=== PATIENT | male | born 1960 | race African-American/Black ===

== ENCOUNTER 2016-04-10 11:20 | Inpatient (IN) | payer OTHER ==
[~2016-04-10] VITALS: Ht 185.4 cm; Wt 127.8 kg
[~2016-04-10 11:20] MED LIST: AMLO-147 PO; BACTDS PO; BENA40TA41 PO; CEPH-443 PO; GLYB5TAB3 PO; INSU200I SQ; LANT3I SC; METO-407 PO
[2016-04-10 13:29] LABS: HEMATOCRIT 20.2 % (42.0-52.0); MEAN CORPUSCULAR HEMOGLOBIN 31.4 pg (29.0-33.0); MEAN CORPUSCULAR HGB CONC 32.3 g/dl (32.0-37.0); MEAN CORPUSCULAR VOLUME 97.3 fl (82.0-101.0); MEAN PLATELET VOLUME 8.5 fl (7.4-10.4); PLATELET COUNT 40 10^3/UL (140-440); RED BLOOD COUNT 2.08 10^6/ul (4.70-6.10); RED CELL DISTRIBUTION WIDTH 22.9 % (11.5-14.5); UNCORRECTED WBC 6.7 10^3/ul (4.8-10.8); WHITE BLOOD COUNT 6.7 10^3/ul (4.8-10.8)
[2016-04-10 13:38] LABS: CHLORIDE 103 mmol/L (97-110); INR 1.2; POTASSIUM 4.9 mmol/L (3.5-5.1); PROTIME 15.3 Sec (12.2-14.2); PT RATIO 1.2; SODIUM 140 mmol/L (135-144)
[2016-04-10 13:39] LABS: PARTIAL THROMBOPLASTIN TIME 31.9 Sec (25.0-35.0)
[2016-04-10 13:41] LABS: ANION GAP 15 (8-16); BLOOD UREA NITROGEN 15 mg/dl (7-20); CARBON DIOXIDE 27 mmol/L (21-31); CREATININE 0.82 mg/dl (0.61-1.24)
[2016-04-10 13:42] LABS: CALCIUM 8.7 mg/dl (8.4-10.2); CONDITION 1; GLUCOSE 89 mg/dl (70-220); HEMOGLOBIN 6.5 g/dl (14.0-18.0)
--- NOTE | 2016-04-10 13:43 | EN ---
Date/Time of Note Date/Time of Note DATE: 04/10/16 TIME: 13:36 ER Progress Note Patient is a 46 year old diabetic, hypertensive, blind, hx of cardiac disease male here for stabbing chest pain, abdominal pain, rash, wound on his left foot. Patient states that he is currently on ciprofloxacin and keflex for his foot infection, but developed a total body rash 2 days after using his medications. He denies itchiness but states his rash is painful. He also states he has stabbing left sided chest pain that radiates to the right. Denies radiation down his arms. Denies SOB or difficulty breathing. Denies nausea, vomiting, diarrhea, sweating or jaw pain. Denies weakness or dizziness. He also states he has not had a bowel movement in 2 weeks. MDM Before doing a physical examination on the patient, I spoke with Dr. Millie yepez who stated that patient should be sent to ED 1. I then spoke with Dr. Kellogg who accepted the patient. Dr. Kellogg told me to order chest x-ray, EKG and blood work. I put in orders. Patient is stable in the room I will be passing on the patient to Dr. Kellogg. ATTILA MERRITT PA-C Apr 10, 2016 13:43
[2016-04-10 13:51] LABS: B-TYPE NATRIURETIC PEPTIDE 1620 PG/ML (0-125)
[2016-04-10 13:55] LABS: TROPONIN-I < 0.012 ng/ml (0.00-0.12)
--- NOTE | 2016-04-10 13:58 | RADRPT ---
PROCEDURE: XR Chest. CLINICAL INDICATION: Chest pain TECHNIQUE: Chest AP portable. COMPARISON: No comparison available. FINDINGS: The mediastinal structures are unremarkable. There is mild cardiomegaly. The pulmonary vascularity is normal. The lung rosas are unremarkable. No consolidation is identified. The pleural spaces are unremarkable. The axial skeleton is unremarkable. IMPRESSION: Mild cardiomegaly No active intrathoracic disease. RPTAT: HGDB .Rodney Garcia MD, MD Date Time Electronically viewed and signed by .Rodney Garcia MD, on 04/10/2016 13:58 .B/
[2016-04-10] MEDS ORDERED: morphine 4 MG/ML VIAL IV STA (14:19)
[2016-04-10] MEDS ORDERED: ONDANSETRON 4 MG INJ IV STA (14:19)
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
[2016-04-10 15:42] LABS: EOSINOPHILS # 0.1 10^3/ul (0.0-0.5); LYMPHOCYTES # 5.2 10^3/ul (0.8-2.9); MONOCYTE # 0.4 10^3/ul (0.3-0.9); NEUTROPHIL # 0.7 10^3/ul (1.6-7.5)
[2016-04-10 15:43] LABS: PLATELET ESTIMATE PLT APPEAR DECREASED
[2016-04-10] MEDS ORDERED: VANCOMYCIN 1 GM (PMX) 250 ML IVPB SCH (16:00)
[2016-04-10] MEDS ORDERED: PIPER-TAZO 3.375 GM IV (PMX) 100 ML IVPB ONE (16:00)
[2016-04-10] MEDS ORDERED: CEPH500C PO (16:36)
[2016-04-10] MEDS ORDERED: CIPR500T4 PO (16:37)
[2016-04-10 17:36] LABS: ALBUMIN 3.7 g/dl (3.3-4.9)
[2016-04-10 17:39] LABS: BILIRUBIN,INDIRECT 0.3 mg/dl (0-1.1); BILIRUBIN,TOTAL 0.3 mg/dl (0.2-1.3); TOTAL PROTEIN 9.3 g/dl (6.1-8.1)
--- NOTE | 2016-04-10 18:08 | RADRPT ---
PROCEDURE: CT abdomen and pelvis without contrast. CLINICAL INDICATION: Abdominal pain. TECHNIQUE: CT scan of the abdomen and pelvis without contrast was performed on a multislice CT [facility] utilizing axial imaging from the lung bases through the pubis symphysis. The patient was scann ed without intravenous contrast. Sagittal and coronal reformatted images were made. The CTDIvol is 16.91 mGy and the DLP is 1163.84 mGycm. COMPARISON: None available other than chest x-ray dated 04/10/2016 FINDINGS: The lung bases are clear. Mild cardiomegaly is present with vascular calcifications of the coronary arteries. No pericardial or pleural effusions are present. Mild diffuse fatty infiltration of the l iver is present without focal lesions. Mild splenomegaly is present. The pancreas, gallbladder, and bilateral adrenal glands are normal. N o evidence for intrahepatic or extrahepatic biliary ductal dilatation is noted. The visualized bowel is nonobstructive. The stomach is decompressed with a small hiatal hernia noted . The bilateral kidneys are normal. No evidence for hydroureter nephrosis or nephroureterolithiasis i s present. The liver, gallbladder, pancreas, spleen, adrenal glands, and kidneys are all normal in a ppearance on this noncontrast examination. The visualized bowel, including the appendix, is normal i n appearance. No pelvic mass, lymphadenopathy, or free fluid is seen. The prostate gland is normal. No evidence f or ascites, pneumoperitoneum or pathologic lymphadenopathy is present. There is no evidence of free air. No aneurysmal dilatation of the aorta is evident. The surrounding osseous structures are remarkable for bilateral sacroiliac joint degenerative diseas e and degenerative changes of the spine. IMPRESSION: 1. No radiographic evidence for acute cardiopulmonary disease. 2. Mild cardiomegaly and coronary artery vascular calcifications. 3. Mild splenomegaly 3. No evidence for diverticulitis or appendicitis. 4. Small hiatal hernia RPTAT: HDC .Frida Valladares MD, MD Date Time Electronically viewed and signed by .Frida Valladares MD, on 04/10/2016 18:08 .C/
[2016-04-10] MEDS ORDERED: ACETAMINOPHEN 325 MG TAB PO ONE (18:30)
--- NOTE | 2016-04-10 18:39 | RADRPT ---
PROCEDURE: XR Right Foot. CLINICAL INDICATION: Pain. TECHNIQUE: AP, lateral and oblique views of the right foot was obtained. The images were reviewed on a PACS workstation. COMPARISON: None. FINDINGS: There are no fractures. There is mild hallux valgus deformity and mild degenerative changes of the first digit metatarsal phalangeal joint. Joint relationships are otherwise maintained. Bone minera lization is within normal limits. Soft tissues are unremarkable. IMPRESSION: No acute abnormality. Redemonstrated first digit metatarsal phalangeal joint hallus valgus deformity and degenerative changes. RPTAT: HMVK .Eyal Mcallister MD, Date Time Electronically viewed and signed by .Eyal Mcallister MD, MD on 04/10/2016 18:38 .K/
[2016-04-10] MEDS ORDERED: VANCOMYCIN IV PER PHARMACY XX SCH (19:00)
[2016-04-10] MEDS ORDERED: GLUCOSE GEL 15 GRAM TUBE PO PRN ×2 (19:00)
[2016-04-10] MEDS ORDERED: GLUCOSE GEL 15 GRAM TUBE BUCCAL PRN (19:00)
[2016-04-10] MEDS ORDERED: NITROGLYCERIN (SL) 0.4 MG TAB SL PRN (19:00)
[2016-04-10] MEDS ORDERED: DOCUSATE SODIUM 100 MG CAP PO PRN (19:00)
[2016-04-10] MEDS ORDERED: NACL 0.9% 3 ML SYG IV SCH (19:00)
[2016-04-10] MEDS ORDERED: VANCOMYCIN 1 GM in NS 250 ML IVPB SCH (19:00)
[2016-04-10] MEDS ORDERED: BISACODYL 10 MG SUPP PR PRN (19:00)
[2016-04-10] MEDS ORDERED: GLUCAGON 1 MG INJ IM PRN (19:00)
[2016-04-10] MEDS ORDERED: DEXTROSE 50% 50 ML SYRINGE IV PRN ×2 (19:00)
[2016-04-10 20:00] VITALS: TEMP 99.1
[2016-04-10 20:20] VITALS: BP 130/69; PULSE 96; RESP 18
[2016-04-10 20:36] VITALS: PULSE 101
[2016-04-10 20:39] LABS: INR 1.18; PROTIME 15.1 Sec (12.2-14.2); PT RATIO 1.2
[2016-04-10 20:47] LABS: CK-MB 0.42 ng/ml (0.0-2.4)
[2016-04-10 20:49] LABS: TROPONIN-I 0.022 ng/ml (0.00-0.12)
[2016-04-10 20:59] LABS: FIBRIN SPLIT PRODUCT >40 and <80 ug/ml (<10)
[2016-04-10] MEDS: INSULIN ASPART [NOVOLOG] 3 ML PEN SC SCH (21:00)
[2016-04-10] MEDS: INSULIN GLARGINE [LANtus] 3 ML PEN SC SCH (21:00)
[2016-04-10] MEDS ORDERED: METOPROLOL 50 MG TAB PO SCH (21:00)
[2016-04-10 21:09] LABS: THROMBIN TIME 16.6 SEC (13.8-19.1)
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
[2016-04-10 21:28] LABS: IRON 41 ug/dl (35-150)
[2016-04-10 21:34] LABS: PLATELET COUNT 36 10^3/UL (140-440)
[2016-04-10 21:44] LABS: FOLATE 7.1 ng/ml (2.8-20.0); TOTAL IRON BINDING CAPACITY 308 ug/dl (241-421)
[2016-04-10 22:07] VITALS: PULSE 129
[2016-04-10] MEDS: morphine 2 MG INJ IV PRN (23:37)
[2016-04-10] MEDS: PIPER-TAZO 3.375 GM IV (PMX) 100 ML IVPB SCH (23:41)
[2016-04-10] MEDS: SOD CHLORIDE 0.9% 1,000 ML IV SCH (23:42)
[2016-04-10 23:58] VITALS: BP 134/73; RESP 18
[2016-04-11] VITALS (11 sets, daily range): BP systolic 130–141; BP diastolic 76–82; PULSE 80–96; RESP 18–20; Ht 185.4 cm; Wt 127.8 kg
[2016-04-11] MEDS: HYDROCODONE/APAP (5/325) TAB PO PRN (02:59)
[2016-04-11] MEDS: SOD CHLORIDE 0.9% 1,000 ML IV SCH ×2 (04:34→14:54)
[2016-04-11] MEDS: PANTOPRAZOLE (EC) 40 MG TAB PO SCH (05:13)
[2016-04-11] MEDS: morphine 2 MG INJ IV PRN ×4 (05:14→23:01)
[2016-04-11] MEDS: PIPER-TAZO 3.375 GM IV (PMX) 100 ML IVPB SCH ×3 (05:14→22:00)
[2016-04-11 07:08] LABS: HEMATOCRIT 19.8 % (42.0-52.0); MEAN CORPUSCULAR HEMOGLOBIN 31.6 pg (29.0-33.0); MEAN CORPUSCULAR VOLUME 93.2 fl (82.0-101.0); RED BLOOD COUNT 2.12 10^6/ul (4.70-6.10); RED CELL DISTRIBUTION WIDTH 23.9 % (11.5-14.5); UNCORRECTED WBC 5.1 10^3/ul (4.8-10.8); WHITE BLOOD COUNT 5.1 10^3/ul (4.8-10.8)
[2016-04-11 07:13] LABS: CONDITION 1; LH ANALYZER COMMENTS 1; PLATELET COUNT 30 10^3/UL (140-440)
[2016-04-11 07:15] LABS: HEMOGLOBIN 6.7 g/dl (14.0-18.0)
[2016-04-11 07:24] LABS: ALBUMIN 3.3 g/dl (3.3-4.9)
[2016-04-11 07:25] LABS: POTASSIUM 4.6 mmol/L (3.5-5.1)
[2016-04-11 07:27] LABS: BILIRUBIN,INDIRECT 0.6 mg/dl (0-1.1); BILIRUBIN,TOTAL 0.6 mg/dl (0.2-1.3); CREATININE 0.85 mg/dl (0.61-1.24)
[2016-04-11 07:28] LABS: ALBUMIN/GLOBULIN RATIO 0.66; CALCIUM 8.1 mg/dl (8.4-10.2); TOTAL PROTEIN 8.3 g/dl (6.1-8.1)
[2016-04-11 07:29] LABS: MAGNESIUM 2.1 mg/dl (1.7-2.5)
[2016-04-11] MEDS ORDERED: METOPROLOL 50 MG TAB PO SCH (09:00)
[2016-04-11] MEDS: AMLODIPINE 5 MG TAB PO SCH (09:00)
[2016-04-11 09:16] LABS: LYMPHOCYTES # 4.5 10^3/ul (0.8-2.9); NEUTROPHIL # 0.6 10^3/ul (1.6-7.5)
[2016-04-11] MEDS: INSULIN ASPART [NOVOLOG] 3 ML PEN SC SCH ×7 (09:35→21:00)
[2016-04-11] MEDS: VANCOMYCIN 1.5 GM in SOD CHLORIDE 0.9% 250 ML IVPB SCH ×2 (10:39→20:38)
[2016-04-11] MEDS: METOPROLOL 100 MG TAB PO SCH ×2 (10:40→20:37)
--- NOTE | 2016-04-11 12:51 | PN ---
Date/Time of Note Date/Time of Note DATE: 04/11/16 TIME: 11:32 Assessment/Plan VTE Prophylaxis VTE Prophylaxis Intervention: SCD's Lines/Catheters IV [facility]from [facility] Peripheral IV Assessment/Plan Assessment/Plan 55-year-old male with: 1. Anemia, acute on chronic with an MCV in the 90s. He is also pancytopenic, primarily thrombocytopenic. HIV negative. Hematology consult will be ordered Transfuse 2 additional units if needed Continue current antibiotics. DIC panel done Patient may need a bone marrow biopsy. 2. Fever with likely acute infection of his right 1st and 2nd toe. ESR elevated The patient also had a rash, maculopapular. He does have a history of methicillin-resistant Staphylococcus aureus skin and soft-tissue infection years ago requiring extensive debridement of the left upper extremity. Continue Vancomycin and Zosyn. Blood cultures and wound cultures pending. Wound care and Dr Thomas, podiatry to see patient. 3. Diabetes mellitus. Likely A1c >13, will wait for send out. Continue current insulin regimen, seems like patient refused Lantus last night. Hold off the glyburide for now. On Tradjenta Diabetic education consult 4. Cardiomegaly, rule out congestive heart failure. Patient with episode of NSVT x 12 beats 2-D echocardiogram pending, CE negative and on Lopressor Continue telemetry monitoring. Electrolytes stable 5. Hypertension. Continue beta blockers and Norvasc. Will hold benazepril for now. 6. Constipation: Miralax and colace, dulcolax prn Prophylaxis. Proton pump inhibitors for GI prophylaxis and SCDs for DVT prophylaxis. DISPOSITION: Close monitoring on Tele, Hematology consult, Podiatry consult and DM educator Subjective 24 Hr Interval Summary Free Text/Dictation Patient with episode of NSVT x 12 beats last night Afebrile this AM and still with pancytopenia, Hb unchanged despite 2 units pRBC HIV neg and Hematology consult pending Exam/Review of Systems Vital Signs Vitals Vital Signs Date Time Temp Pulse Resp B/P Pulse Ox O2 Delivery O2 Flow Rate FiO2 04/11/16 11:15 99.0 95 20 140/82 95 04/11/16 01:04 2.0 28 04/10/16 20:40 Nasal Cannula Intake and Output 04/10/16 04/10/16 04/11/16 15:00 23:00 07:00 Intake Total 350 ml 1650 ml Output Total 1550 ml Balance 350 ml 100 ml Exam Constitutional: alert, oriented, other (blind ), well developed Respiratory: clear to auscultation, normal air movement Cardiovascular: nl pulses, regular rate and rhythm Gastrointestinal: soft, tender (across abdomen ) Musculoskeletal: other (right foot with wound ) Extremities: normal pulses, other (no edema, clubbing or cyanosis ) 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, lethargic, nl mental status, nl speech Results Result Diagram: 04/11/16 0647 04/11/16 0647 Results 24 hrs Laboratory Tests Test 04/10/16 12:24 04/10/16 16:40 04/10/16 19:30 04/10/16 19:50 Activated Partial Thromboplast Time 31.9 32.0 Anion Gap 15 B-Type Natriuretic Peptide 1620 H Blood Morphology Comment Blood Urea Nitrogen 15 Calcium Level 8.7 Carbon Dioxide Level 27 Chloride Level 103 Creatinine 0.82 Eosinophils # 0.1 Eosinophils % 1.0 Glucose Level 89 Hematocrit 20.2 L Hemoglobin 6.5 *L INR International Normalized Ratio 1.20 1.18 Lymphocytes # 5.2 H Lymphocytes % 78.0 H Macrocytosis 1+ Mean Corpuscular Hemoglobin 31.4 Mean Corpuscular Hemoglobin Concent 32.3 Mean Corpuscular Volume 97.3 Mean Platelet Volume 8.5 Monocytes # 0.4 Monocytes % 6.0 Neutrophils # 0.7 L Neutrophils % 11.0 L Nucleated Red Blood Cells % 7.0 H Platelet Count 40 #L 36 L Platelet Estimate PLT APPEAR DECREASED Potassium Level 4.9 Prothrombin Time 15.3 H 15.1 H Prothrombin Time Ratio 1.2 1.2 Reactive Lymphocytes % 4.0 Red Blood Count 2.08 L Red Cell Distribution Width 22.9 H Sodium Level 140 Troponin I < 0.012 0.022 White Blood Count 6.7 Alanine Aminotransferase (ALT/SGPT) 46 Albumin 3.7 Alkaline Phosphatase 300 H Aspartate Amino Transf (AST/SGOT) 44 Direct Bilirubin 0.00 Indirect Bilirubin 0.3 Lactic Acid Level 2.0 Lipase 20 L Total Bilirubin 0.3 Total Protein 9.3 H Thyroid Stimulating Hormone (TSH) 1.500 C-Reactive Protein 15.7 H Creatine Kinase 70 Creatine Kinase Index 0.6 Creatinine Kinase MB (Mass) 0.42 D-Dimer 7855.00 H D-Dimer Comment Erythrocyte Sedimentation Rate 162 H Ferritin 800.0 H Fibrinogen 597.0 H Folate 7.1 Free Thyroxine 1.38 HIV (1&2) Antibody NEGATIVE Iron Level 41 Percent Iron Saturation 13 L Plasma Fibrin Degradation Products >40 and <80 H Thrombin Time 16.6 Total Iron Binding Capacity 308 Vitamin B12 Level 655 Test 04/10/16 20:00 04/10/16 20:58 04/11/16 06:47 04/11/16 08:32 Lactic Acid Level 1.0 Bedside Glucose 115 163 Alanine Aminotransferase (ALT/SGPT) 37 Albumin 3.3 Albumin/Globulin Ratio 0.66 Alkaline Phosphatase 250 H Anion Gap 14 Aspartate Amino Transf (AST/SGOT) 33 Blood Morphology Comment Blood Urea Nitrogen 15 Calcium Level 8.1 L Carbon Dioxide Level 26 Chloride Level 103 Cholesterol Level 150 Cholesterol/HDL Ratio 10.0 Creatinine 0.85 Direct Bilirubin 0.00 Globulin 5.00 H Glucose Level 138 # HDL Cholesterol 15 L Hematocrit 19.8 L Hemoglobin 6.7 *L Hemoglobin A1c Indirect Bilirubin 0.6 LDL Cholesterol, Calculated 111 Lymphocytes # 4.5 H Lymphocytes % 89.0 H Magnesium Level 2.1 Mean Corpuscular Hemoglobin 31.6 Mean Corpuscular Hemoglobin Concent 34.0 Mean Corpuscular Volume 93.2 Mean Platelet Volume 9.0 Neutrophils # 0.6 L Neutrophils % 11.0 L Platelet Count 30 #L Potassium Level 4.6 Red Blood Count 2.12 L Red Cell Distribution Width 23.9 H Sodium Level 138 Total Bilirubin 0.6 Total Protein 8.3 H Triglycerides Level 120 White Blood Count 5.1 # Medications Medications Current Medications Amlodipine Besylate (Norvasc) 5 mg DAILY PO Last administered on 04/11/16at 09: 00; Admin Dose 5 MG; Start 04/11/16 at 09:00 Insulin Glargine 23 unit 23 unit QHS SC ; Start 04/10/16 at 21:00 Sodium Chloride (NS) 1,000 ml @ 100 mls/hr Q10H IV Last administered on at 23:42; Admin Dose 100 MLS/HR; Start 04/10/16 at 18:34 Ondansetron HCl (Zofran Inj) 4 mg Q6H PRN IV NAUSEA AND/OR VOMITING; Start 04/10/16 at 19:00 Nitroglycerin (Nitroglycerin (Sl Tab) 0.4 Mg) 1 tab Q5M PRN SL CHEST PAIN; Start 04/10/16 at 19:00 Acetaminophen (Tylenol Tab) 650 mg Q6H PRN PO PAIN LEVEL 1-3 OR FEVER; Start 04/10/16 at 19:00 Acetaminophen/ Hydrocodone Bitart ([place] (5/325)) 1 tab Q6H PRN PO PAIN LEVEL 4 -6 Last administered on 04/11/16at 02:59; Admin Dose 1 TAB; Start 04/10/16 at 19: 00 Acetaminophen/ Hydrocodone Bitart ([place] (5/325)) 2 tab Q6H PRN PO PAIN LEVEL 7 -10; Start 04/10/16 at 19:00 Morphine Sulfate (morphine) 2 mg Q4H PRN IV PAIN LEVEL 7-10 Last administered on 04/11/16at 11:30; Admin Dose 2 MG; Start 04/10/16 at 19:00 Docusate Sodium (Colace) 100 mg Q12H PRN PO CONSTIPATION; Start 04/10/16 at 19: 00 Magnesium Hydroxide (Milk Of Mag) 30 ml DAILY PRN PO CONSTIPATION; Start at 19:00 Bisacodyl (Dulcolax Supp) 10 mg DAILY PRN [place] CONSTIPATION; Start 04/10/16 at 19 :00 Pantoprazole 40 mg 40 mg DAILY@06 PO Last administered on 04/11/16at 05:13; Admin Dose 40 MG; Start 04/11/16 at 06:00 Piperacillin Sod/ Tazobactam Sod (Zosyn 3.375gm/ 100 ml (Pmx)) 100 ml @ 200 mls /hr Q8 IVPB Last administered on 04/11/16at 05:14; Admin Dose 200 MLS/HR; Start 04/10/16 at 22:00 Miscellaneous Information 1 ea NOTE XX ; Start 04/10/16 at 19:00 Glucose (Glutose) 15 gm Q15M PRN PO DECREASED GLUCOSE; Start 04/10/16 at 19:00 Glucose (Glutose) 22.5 gm Q15M PRN PO DECREASED GLUCOSE; Start 04/10/16 at 19: 00 Dextrose (D50w Syringe) 25 ml Q15M PRN IV DECREASED GLUCOSE; Start 04/10/16 at 19:00 Dextrose (D50w Syringe) 50 ml Q15M PRN IV DECREASED GLUCOSE; Start 04/10/16 at 19:00 Glucagon (Glucagen) 1 mg Q15M PRN IM DECREASED GLUCOSE; Start 04/10/16 at 19:00 Glucose 15 gm 15 gm Q15M PRN BUCCAL DECREASED GLUCOSE; Start 04/10/16 at 19:00 Vancomycin HCl/ Sodium Chloride (Vancocin/NS) 250 ml @ 83.333 mls/ hr Q12H IVPB Last administered on 04/11/16at 10:39; Admin Dose 83.333 MLS/HR; Start 04/11/16 at 09:00 Metoprolol Tartrate (Lopressor) 100 mg BID PO Last administered on 04/11/16at 10 :40; Admin Dose 100 MG; Start 04/11/16 at 09:00 Influenza Virus Vaccine (Fluzone) 0.5 ml ONCE ONCE IM* ; Start 04/12/16 at 09:00 ; Stop 04/12/16 at 09:01 LAUREL ANDERSON Apr 11, 2016 11:43
--- NOTE | 2016-04-11 13:25 | RADRPT ---
Echocardiogram Report Patient Name: VINEET BERRIOS Gender: Male Date: 1960 Study Date: 11-Apr-2016 [employer] Instructor: Chloé Astorga [facility]: DUY ANDERSON Quality: Good Procedures: Transthoracic echocardiogram with complete 2D, M-Mode, and doppler examination. Indications: Evaluate Left Ventricular function. 2D/M Mode Doppler Measurement Value Normal Ranges Measurement Value Normal Ranges LVIDd 2D 6.3 3.5 - 5.6 cm AV Peak Jasmeet 1.5 m/sec LVIDs 2D 3.7 2.1 - 4.1 cm AV Peak PG 9.5 mmHg LVPWd 2D 1.3 0.6 - 1.1 cm LVOT Peak Jasmeet 1.1 m/sec IVSd 2D 1.3 0.6 - 1.1 cm LVOT Peak PG 4.6 mmHg AoR Diam 2D 3.2 2.0 - 3.7 cm MV E Peak Jasmeet 1.1 m/sec EDV 2D 197.6 cm3 MV A Peak Jasmeet 0.7 m/sec ESV 2D 50.7 cm3 MV E/A 1.5 LA Dimen 2D 4.3 2.3 - 4.0 cm MV Decel Time 198 msec MV Decel [place] 6 MV E/A 1.5 TR Peak Jasmeet 2.8 m/sec TR Peak PG 30.8 mmHg RVSP 34.0 mmHg Findings Left Ventricle: Lower limits of normal systolic function. Mild concentric left ventricular hypertrophy. Mild enlargement of left ventricle cavity. Ejection fraction is visually estimated at 50 %. Right Ventricle: Normal right ventricular size. Normal right ventricular systolic function. Left Atrium: There is mild enlargement of left atrium. Right Atrium: The right atrium is normal in size. Mitral Valve: Mitral valve leaflets appear mildly thickened. Mild mitral annular calcification. Mild mitral valve regurgitation. The regurgitation jet is eccentrically directed which may underestimate the severity of mitral regurgitation. Aortic Valve: No significant aortic stenosis or insufficiency. Aortic cusps appear mildly calcified. Tricuspid Valve: Normal appearance and function of the tricuspid valve with trace physiologic regurgitation. Estimated peak PA systolic pressure 34 mmHg. Pulmonic Valve: Normal pulmonic valve appearance. Pericardium: Normal pericardium with no significant pericardial effusion. Aorta: Normal aortic root. IVC: Normal size and normal respiratory collapse consistent with normal right atrial pressure. Pulmonary Artery: Normal pulmonary artery size. Conclusions Lower limits of normal systolic function. Mild concentric left ventricular hypertrophy. Mild enlargement of left ventricle cavity. Ejection fraction is visually estimated at 50 %. Normal right ventricular size. Normal right ventricular systolic function. There is mild enlargement of left atrium. The right atrium is normal in size. Mild mitral valve regurgitation. The regurgitation jet is eccentrically directed which may underestimate the severity of mitral regurgitation. No significant aortic stenosis or insufficiency. Normal appearance and function of the tricuspid valve with trace physiologic regurgitation. Estimated peak PA systolic pressure 34 mmHg. Normal pericardium with no significant pericardial effusion. Electronically Signed By: Eyal Shipley 11-Apr-2016 13:24:35 -0800 Patient Name: VINEET BERRIOS Study Date: 11-Apr-2016 [id number]
[2016-04-11 14:15] LABS: HEMATOCRIT 20.3 % (42.0-52.0); MEAN CORPUSCULAR HEMOGLOBIN 30.4 pg (29.0-33.0); MEAN CORPUSCULAR HGB CONC 32.4 g/dl (32.0-37.0); PLATELET COUNT 35 10^3/UL (140-440); RED BLOOD COUNT 2.16 10^6/ul (4.70-6.10); RED CELL DISTRIBUTION WIDTH 24.6 % (11.5-14.5); UNCORRECTED WBC 5.4 10^3/ul (4.8-10.8); WHITE BLOOD COUNT 5.4 10^3/ul (4.8-10.8)
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
[2016-04-11 14:28] LABS: CONDITION 1; LH ANALYZER COMMENTS 1; MEAN PLATELET VOLUME 8.4 fl (7.4-10.4)
[2016-04-11 14:30] LABS: HEMOGLOBIN 6.6 g/dl (14.0-18.0)
[2016-04-11] MEDS: POLYETHYLENE GLYCOL 17 GM PACKET PO SCH (14:55)
[2016-04-11] MEDS ORDERED: SOD CHLORIDE 0.9% 250 ML IV* ONE (15:25)
[2016-04-11 15:49] LABS: LYMPHOCYTES # 4.7 10^3/ul (0.8-2.9); MONOCYTE # 0.3 10^3/ul (0.3-0.9); NEUTROPHIL # 0.4 10^3/ul (1.6-7.5); PLATELET ESTIMATE PLT APPEAR DECREASED
[2016-04-11 16:00] LABS: RETICULOCYTE COUNT % 1.6 % (0.5-1.5)
[2016-04-11] MEDS: DOCUSATE SODIUM 100 MG CAP PO SCH (20:37)
[2016-04-11] MEDS: INSULIN GLARGINE [LANtus] 3 ML PEN SC SCH (21:25)
[2016-04-11] MEDS: ACETAMINOPHEN 325 MG TAB PO PRN (23:01)
[2016-04-12] VITALS (12 sets, daily range): BP systolic 131–146; BP diastolic 76–86; PULSE 80–92; RESP 16–20
[2016-04-12] MEDS: SOD CHLORIDE 0.9% 1,000 ML IV SCH ×3 (00:34→20:29)
[2016-04-12] MEDS: morphine 2 MG INJ IV PRN ×4 (03:48→20:19)
[2016-04-12] MEDS: PANTOPRAZOLE (EC) 40 MG TAB PO SCH (06:03)
[2016-04-12] MEDS: PIPER-TAZO 3.375 GM IV (PMX) 100 ML IVPB SCH ×3 (06:03→22:29)
[2016-04-12 07:33] LABS: HEMATOCRIT 22.9 % (42.0-52.0); HEMOGLOBIN 7.6 g/dl (14.0-18.0); MEAN CORPUSCULAR HEMOGLOBIN 30.5 pg (29.0-33.0); MEAN CORPUSCULAR VOLUME 92.6 fl (82.0-101.0); PLATELET COUNT 35 10^3/UL (140-440); RED BLOOD COUNT 2.47 10^6/ul (4.70-6.10); RED CELL DISTRIBUTION WIDTH 22.8 % (11.5-14.5); UNCORRECTED WBC 5.8 10^3/ul (4.8-10.8); WHITE BLOOD COUNT 5.8 10^3/ul (4.8-10.8)
[2016-04-12 07:43] LABS: CONDITION 1; LH ANALYZER COMMENTS 1; MEAN PLATELET VOLUME 8.1 fl (7.4-10.4)
[2016-04-12 07:45] LABS: ALBUMIN 3.4 g/dl (3.3-4.9)
[2016-04-12 07:46] LABS: POTASSIUM 4.3 mmol/L (3.5-5.1)
[2016-04-12 07:48] LABS: BILIRUBIN,DIRECT 0.3 mg/dl (0.00-0.20); BILIRUBIN,INDIRECT 0.9 mg/dl (0-1.1); BILIRUBIN,TOTAL 1.2 mg/dl (0.2-1.3); CREATININE 0.86 mg/dl (0.61-1.24)
[2016-04-12 07:49] LABS: ALBUMIN/GLOBULIN RATIO 0.62; CALCIUM 8.4 mg/dl (8.4-10.2); TOTAL PROTEIN 8.8 g/dl (6.1-8.1)
[2016-04-12 07:53] LABS: PHOSPHORUS 3.7 mg/dl (2.5-4.9)
[2016-04-12 07:54] LABS: MAGNESIUM 2.2 mg/dl (1.7-2.5)
[2016-04-12] MEDS: INSULIN ASPART [NOVOLOG] 3 ML PEN SC SCH ×7 (07:55→20:35)
[2016-04-12 08:58] LABS: LH ANALYZER COMMENTS 1
[2016-04-12] MEDS ORDERED: INFLUENZA VIRUS VACCINE 0.5 ML (DISPENSING) IM* ONE (09:00)
[2016-04-12 09:10] LABS: LYMPHOCYTES # 5.2 10^3/ul (0.8-2.9); NEUTROPHIL # 0.6 10^3/ul (1.6-7.5)
[2016-04-12] MEDS: VANCOMYCIN 1.5 GM in SOD CHLORIDE 0.9% 250 ML IVPB SCH ×2 (10:25→20:22)
[2016-04-12] MEDS: POLYETHYLENE GLYCOL 17 GM PACKET PO SCH (10:27)
[2016-04-12] MEDS: DOCUSATE SODIUM 100 MG CAP PO SCH ×2 (10:27→20:21)
[2016-04-12] MEDS: METOPROLOL 100 MG TAB PO SCH ×2 (10:28→20:22)
[2016-04-12] MEDS: AMLODIPINE 5 MG TAB PO SCH (10:30)
--- NOTE | 2016-04-12 11:42 | PN ---
Date/Time of Note Date/Time of Note DATE: 04/12/16 TIME: 11:06 Assessment/Plan VTE Prophylaxis VTE Prophylaxis Intervention: SCD's Lines/Catheters IV Catheter Type (from Nrs): Peripheral IV Assessment/Plan Assessment/Plan 55-year-old male with: 1. Anemia, acute on chronic with an MCV in the 90s. He is also pancytopenic, primarily thrombocytopenic. HIV negative. Appreciate Hematology eval and plan of care. Likely to need BM bx if pancytopenia not related underlying infection. Hb up to 7.6 post 4 units pRBC since admission. DIC panel done Patient may need a bone marrow biopsy. 2. Fever with likely acute infection of his right 1st and 2nd toe. ESR elevated. Another episode on Low grade temp yesterday and afebrile since then. The patient also had a rash, maculopapular. He does have a history of methicillin-resistant Staphylococcus aureus skin and soft-tissue infection years ago requiring extensive debridement of the left upper extremity. Continue Vancomycin and Zosyn. ID consult with Dr Salazar Blood cultures NGTD and wound cultures pending. Wound care and Dr Thomas, podiatry to see patient. 3. Diabetes mellitus. A1c back at 7.2 ...Continue current insulin regimen, keeping off glyburide. On Tradjenta Appreciate early childhood special educator recommendations. 4. Cardiomegaly, EF 50%. Patient with another episode of NSVT x 8 beats this AM asymptomatic Continue Lopressor Continue telemetry monitoring. Electrolytes stable again today. 5. Hypertension. Continue beta blockers and Norvasc. Will hold benazepril for now. 6. Constipation: Miralax and colace scheduled and add MOM along with dulcolax prn Prophylaxis. Proton pump inhibitors for GI prophylaxis and SCDs for DVT prophylaxis. DISPOSITION: Close monitoring on Tele, Podiatry consult pending and also will consult ID. Subjective 24 Hr Interval Summary Free Text/Dictation Patient doing OK but asking for higher dose of narcotics Still no BM Hb better but still below 8, will plan additional 2 units pRBC Afebrile and Bloos cx negative, wound cx pending Exam/Review of Systems Vital Signs Vitals Vital Signs Date Time Temp Pulse Resp B/P Pulse Ox O2 Delivery O2 Flow Rate FiO2 04/12/16 08:32 83 04/12/16 07:01 98.9 20 134/79 94 04/12/16 00:54 2.0 04/11/16 23:37 Room Air 04/11/16 01:04 28 Intake and Output 04/11/16 04/11/16 04/12/16 14:59 22:59 06:59 Intake Total 1150 ml 1350 ml Output Total 1400 ml 1200 ml Balance -250 ml 150 ml Exam Constitutional: alert, oriented, other (blind) Respiratory: clear to auscultation, normal air movement Cardiovascular: nl pulses, regular rate and rhythm Gastrointestinal: bowel sounds (present ), soft Musculoskeletal: nl extremities to inspection Extremities: normal pulses 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: 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, nl mental status, nl speech, nl strength, other (blind ) Results Result Diagram: 04/12/16 0610 04/12/16 0610 Results 24 hrs Laboratory Tests Test 04/11/16 12:45 04/11/16 13:45 04/11/16 15:15 04/11/16 15:35 Bedside Glucose 226 H Blood Morphology Comment Hematocrit 20.3 L Hemoglobin 6.6 *L Lymphocytes # 4.7 H Lymphocytes % 87.0 H Mean Corpuscular Hemoglobin 30.4 Mean Corpuscular Hemoglobin Concent 32.4 Mean Corpuscular Volume 94.0 Mean Platelet Volume 8.4 Monocytes # 0.3 Monocytes % 5.0 Neutrophils # 0.4 L Neutrophils % 8.0 L Nucleated Red Blood Cells % 6.0 H Platelet Count 35 L Platelet Estimate PLT APPEAR DECREASED Red Blood Count 2.16 L Red Cell Distribution Width 24.6 H White Blood Count 5.4 Lactic Acid Level 1.3 Absolute Reticulocyte Count 0.035 Lactate Dehydrogenase 344 Percent Reticulocyte Count 1.6 H Test 04/11/16 18:01 04/11/16 21:22 04/12/16 06:10 04/12/16 08:47 Bedside Glucose 166 145 Alanine Aminotransferase (ALT/SGPT) 36 Albumin 3.4 Albumin/Globulin Ratio 0.62 Alkaline Phosphatase 276 H Anion Gap 14 Aspartate Amino Transf (AST/SGOT) 36 Blood Morphology Comment Blood Urea Nitrogen 12 Calcium Level 8.4 Carbon Dioxide Level 26 Chloride Level 103 Creatinine 0.86 Differential Comment MANUAL DIFF Direct Bilirubin 0.30 #H Globulin 5.40 H Glucose Level 98 # Hematocrit 22.9 L Hemoglobin 7.6 L Indirect Bilirubin 0.9 Lymphocytes # 5.2 H Lymphocytes % 89.0 H Macrocytosis 2+ Magnesium Level 2.2 Mean Corpuscular Hemoglobin 30.5 Mean Corpuscular Hemoglobin Concent 33.0 Mean Corpuscular Volume 92.6 Mean Platelet Volume 8.1 Neutrophils # 0.6 L Neutrophils % 10.0 L Nucleated Red Blood Cells % 6.0 H Phosphorus Level 3.7 Platelet Count 35 L Potassium Level 4.3 Reactive Lymphocytes % 1.0 Red Blood Count 2.47 L Red Cell Distribution Width 22.8 H Sodium Level 139 Total Bilirubin 1.2 Total Protein 8.8 H White Blood Count 5.8 Vancomycin Level Trough 12.0 Test 04/12/16 08:50 Bedside Glucose 101 Medications Medications Current Medications Amlodipine Besylate (Norvasc) 5 mg DAILY PO Last administered on 04/12/16at 10: 30; Admin Dose 5 MG; Start 04/11/16 at 09:00 Insulin Glargine 23 unit 23 unit QHS SC Last administered on 04/11/16at 21:25; Admin Dose 23 UNIT; Start 04/10/16 at 21:00 Sodium Chloride (NS) 1,000 ml @ 100 mls/hr Q10H IV Last administered on at 10:38; Admin Dose 100 MLS/HR; Start 04/10/16 at 18:34 Ondansetron HCl (Zofran Inj) 4 mg Q6H PRN IV NAUSEA AND/OR VOMITING; Start 04/10/16 at 19:00 Nitroglycerin (Nitroglycerin (Sl Tab) 0.4 Mg) 1 tab Q5M PRN SL CHEST PAIN; Start 04/10/16 at 19:00 Acetaminophen (Tylenol Tab) 650 mg Q6H PRN PO PAIN LEVEL 1-3 OR FEVER Last administered on 04/11/16at 23:01; Admin Dose 650 MG; Start 04/10/16 at 19:00 Acetaminophen/ Hydrocodone Bitart ([place] (5/325)) 1 tab Q6H PRN PO PAIN LEVEL 4 -6 Last administered on 04/11/16at 02:59; Admin Dose 1 TAB; Start 04/10/16 at 19: 00 Acetaminophen/ Hydrocodone Bitart ([place] (5/325)) 2 tab Q6H PRN PO PAIN LEVEL 7 -10; Start 04/10/16 at 19:00 Morphine Sulfate (morphine) 2 mg Q4H PRN IV PAIN LEVEL 7-10 Last administered on 04/12/16at 10:16; Admin Dose 2 MG; Start 04/10/16 at 19:00 Magnesium Hydroxide (Milk Of Mag) 30 ml DAILY PRN PO CONSTIPATION; Start at 19:00 Bisacodyl (Dulcolax Supp) 10 mg DAILY PRN SC CONSTIPATION; Start 04/10/16 at 19 :00 Pantoprazole 40 mg 40 mg DAILY@06 PO Last administered on 04/12/16at 06:03; Admin Dose 40 MG; Start 04/11/16 at 06:00 Piperacillin Sod/ Tazobactam Sod (Zosyn 3.375gm/ 100 ml (Pmx)) 100 ml @ 200 mls /hr Q8 IVPB Last administered on 04/12/16at 06:03; Admin Dose 200 MLS/HR; Start 04/10/16 at 22:00 Miscellaneous Information 1 ea NOTE XX ; Start 04/10/16 at 19:00 Glucose (Glutose) 15 gm Q15M PRN PO DECREASED GLUCOSE; Start 04/10/16 at 19:00 Glucose (Glutose) 22.5 gm Q15M PRN PO DECREASED GLUCOSE; Start 04/10/16 at 19: 00 Dextrose (D50w Syringe) 25 ml Q15M PRN IV DECREASED GLUCOSE; Start 04/10/16 at 19:00 Dextrose (D50w Syringe) 50 ml Q15M PRN IV DECREASED GLUCOSE; Start 04/10/16 at 19:00 Glucagon (Glucagen) 1 mg Q15M PRN IM DECREASED GLUCOSE; Start 04/10/16 at 19:00 Glucose 15 gm 15 gm Q15M PRN BUCCAL DECREASED GLUCOSE; Start 04/10/16 at 19:00 Vancomycin HCl/ Sodium Chloride (Vancocin/NS) 250 ml @ 83.333 mls/ hr Q12H IVPB Last administered on 04/12/16at 10:25; Admin Dose 83.333 MLS/HR; Start 04/11/16 at 09:00 Metoprolol Tartrate (Lopressor) 100 mg BID PO Last administered on 04/12/16at 10 :28; Admin Dose 100 MG; Start 04/11/16 at 09:00 Docusate Sodium (Colace) 100 mg Q12H PO Last administered on 04/12/16at 10:27; Admin Dose 100 MG; Start 04/11/16 at 19:00 Polyethylene Glycol (Miralax) 17 gm DAILY PO Last administered on 04/12/16at 10: 27; Admin Dose 17 GM; Start 04/11/16 at 13:00 Procedures Procedures Echocardiogram Report Patient Name: VINEET BERRIOS Gender: Male Date: 1960 Study Date: 11-Apr-2016 Music Critic: Chloé Astorga [facility] Location: [facility] Ref. Physician: DUY ANDERSON Quality: Good Procedures: Transthoracic echocardiogram with complete 2D, M-Mode, and doppler examination. Indications: Evaluate Left Ventricular function. 2D/M Mode Doppler Measurement Value Normal Ranges Measurement Value Normal Ranges LVIDd 2D 6.3 3.5 - 5.6 cm AV Peak Jasmeet 1.5 m/sec LVIDs 2D 3.7 2.1 - 4.1 cm AV Peak PG 9.5 mmHg LVPWd 2D 1.3 0.6 - 1.1 cm LVOT Peak Jasmeet 1.1 m/sec IVSd 2D 1.3 0.6 - 1.1 cm LVOT Peak PG 4.6 mmHg AoR Diam 2D 3.2 2.0 - 3.7 cm MV E Peak Jasmeet 1.1 m/sec EDV 2D 197.6 cm3 MV A Peak Jasmeet 0.7 m/sec ESV 2D 50.7 cm3 MV E/A 1.5 LA Dimen 2D 4.3 2.3 - 4.0 cm MV Decel Time 198 msec MV Decel [place] 6 MV E/A 1.5 TR Peak Jasmeet 2.8 m/sec TR Peak PG 30.8 mmHg RVSP 34.0 mmHg Findings Left Ventricle: Lower limits of normal systolic function. Mild concentric left ventricular hypertrophy. Mild enlargement of left ventricle cavity. Ejection fraction is visually estimated at 50 %. Right Ventricle: Normal right ventricular size. Normal right ventricular systolic function. Left Atrium: There is mild enlargement of left atrium. Right Atrium: The right atrium is normal in size. Mitral Valve: Mitral valve leaflets appear mildly thickened. Mild mitral annular calcification. Mild mitral valve regurgitation. The regurgitation jet is eccentrically directed which may underestimate the severity of mitral regurgitation. Aortic Valve: No significant aortic stenosis or insufficiency. Aortic cusps appear mildly calcified. Tricuspid Valve: Normal appearance and function of the tricuspid valve with trace physiologic regurgitation. Estimated peak PA systolic pressure 34 mmHg. Pulmonic Valve: Normal pulmonic valve appearance. Pericardium: Normal pericardium with no significant pericardial effusion. Aorta: Normal aortic root. IVC: Normal size and normal respiratory collapse consistent with normal right atrial pressure. Pulmonary Artery: Normal pulmonary artery size. Conclusions Lower limits of normal systolic function. Mild concentric left ventricular hypertrophy. Mild enlargement of left ventricle cavity. Ejection fraction is visually estimated at 50 %. Normal right ventricular size. Normal right ventricular systolic function. There is mild enlargement of left atrium. The right atrium is normal in size. Mild mitral valve regurgitation. The regurgitation jet is eccentrically directed which may underestimate the severity of mitral regurgitation. No significant aortic stenosis or insufficiency. Normal appearance and function of the tricuspid valve with trace physiologic regurgitation. Estimated peak PA systolic pressure 34 mmHg. Normal pericardium with no significant pericardial effusion. Electronically Signed By: Eyal Shipley 11-Apr-2016 13:24:35 -0800 LAUREL ANDERSON Apr 12, 2016 11:22
[2016-04-12 12:34] LABS: HEMATOCRIT 23.3 % (42.0-52.0); HEMOGLOBIN 7.8 g/dl (14.0-18.0)
--- NOTE | 2016-04-12 12:40 | CONS ---
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 He also reported easy bruising but not bleeding. Initial labs also revealed pancytopenia with a Hg 6.7 and platelets in 30's. Pt has required a blood transfusion in the past but does not know why he is anemic or thrombocytopenic. On this admission pt was transfused 2 units of PRBCs with only minimal improvement in the Hg. He is not currently bleeding. Peripheral smear shows no evidence of schistocytes or microangiopathic hemolytic anemia. Problems: Additional Assessment/Plan -f/u haptoglobin although hemolysis unlikely with normal LDH and peripheral smear without schistocytes. -check EPO level to see if patient would benefit form procrit. -bone marrow bx scheduled for tomorrow -f/u blood cultures as pt appears to have a disseminated infection which may be the cause of this severe anemia -agree with ortho consult to r/o osteomyelitis -agree with JOSE J to rule out endocarditis Approximately 40 min were spent at patient's bedside Consultation Date/Type/Reason Admit Date/Time Apr 10, 2016 at 16:55 Initial Consult Date 04/11/16 Type of Consultation: Hematology Reason for Consultation anemia/ thrombocytosis Referring Provider: LAUREL ANDERSON 24 HR Interval Summary Free Text/Dictation still c/o abdominal pain Exam/Review of Systems Vital Signs Vitals Vital Signs Date Time Temp Pulse Resp B/P Pulse Ox O2 Delivery O2 Flow Rate FiO2 04/12/16 11:08 98.6 86 20 138/82 95 04/12/16 00:54 2.0 04/11/16 23:37 Room Air 04/11/16 01:04 28 Intake and Output 04/11/16 04/11/16 04/12/16 15:00 23:00 07:00 Intake Total 1150 ml 1350 ml Output Total 1400 ml 1200 ml Balance -250 ml 150 ml Exam Constitutional: alert, distress, oriented Psych: anxiety, depression Head: normocephalic Eyes: other (blind , w cataracts) ENMT: nl external ears & nose Respiratory: clear to auscultation, normal air movement Cardiovascular: regular rate and rhythm Gastrointestinal: soft Musculoskeletal: nl extremities to inspection, nl gait and stance Results Result Diagram: 04/12/16 0610 04/12/16 0610 Results 24 hrs Laboratory Tests Test 04/11/16 12:45 04/11/16 13:45 04/11/16 15:15 04/11/16 15:35 Bedside Glucose 226 H Blood Morphology Comment Hematocrit 20.3 L Hemoglobin 6.6 *L Lymphocytes # 4.7 H Lymphocytes % 87.0 H Mean Corpuscular Hemoglobin 30.4 Mean Corpuscular Hemoglobin Concent 32.4 Mean Corpuscular Volume 94.0 Mean Platelet Volume 8.4 Monocytes # 0.3 Monocytes % 5.0 Neutrophils # 0.4 L Neutrophils % 8.0 L Nucleated Red Blood Cells % 6.0 H Platelet Count 35 L Platelet Estimate PLT APPEAR DECREASED Red Blood Count 2.16 L Red Cell Distribution Width 24.6 H White Blood Count 5.4 Lactic Acid Level 1.3 Absolute Reticulocyte Count 0.035 Lactate Dehydrogenase 344 Percent Reticulocyte Count 1.6 H Test 04/11/16 18:01 04/11/16 21:22 04/12/16 06:10 04/12/16 08:47 Bedside Glucose 166 145 Alanine Aminotransferase (ALT/SGPT) 36 Albumin 3.4 Albumin/Globulin Ratio 0.62 Alkaline Phosphatase 276 H Anion Gap 14 Aspartate Amino Transf (AST/SGOT) 36 Blood Morphology Comment Blood Urea Nitrogen 12 Calcium Level 8.4 Carbon Dioxide Level 26 Chloride Level 103 Creatinine 0.86 Differential Comment MANUAL DIFF Direct Bilirubin 0.30 #H Globulin 5.40 H Glucose Level 98 # Hematocrit 22.9 L Hemoglobin 7.6 L Indirect Bilirubin 0.9 Lymphocytes # 5.2 H Lymphocytes % 89.0 H Macrocytosis 2+ Magnesium Level 2.2 Mean Corpuscular Hemoglobin 30.5 Mean Corpuscular Hemoglobin Concent 33.0 Mean Corpuscular Volume 92.6 Mean Platelet Volume 8.1 Neutrophils # 0.6 L Neutrophils % 10.0 L Nucleated Red Blood Cells % 6.0 H Phosphorus Level 3.7 Platelet Count 35 L Potassium Level 4.3 Reactive Lymphocytes % 1.0 Red Blood Count 2.47 L Red Cell Distribution Width 22.8 H Sodium Level 139 Total Bilirubin 1.2 Total Protein 8.8 H White Blood Count 5.8 Vancomycin Level Trough 12.0 Test 04/12/16 08:50 Bedside Glucose 101 Medications Medications Current Medications Amlodipine Besylate (Norvasc) 5 mg DAILY PO Last administered on 04/12/16at 10: 30; Admin Dose 5 MG; Start 04/11/16 at 09:00 Insulin Glargine 23 unit 23 unit QHS SC Last administered on 04/11/16at 21:25; Admin Dose 23 UNIT; Start 04/10/16 at 21:00 Sodium Chloride (NS) 1,000 ml @ 100 mls/hr Q10H IV Last administered on at 10:38; Admin Dose 100 MLS/HR; Start 04/10/16 at 18:34 Ondansetron HCl (Zofran Inj) 4 mg Q6H PRN IV NAUSEA AND/OR VOMITING; Start 04/10/16 at 19:00 Nitroglycerin (Nitroglycerin (Sl Tab) 0.4 Mg) 1 tab Q5M PRN SL CHEST PAIN; Start 04/10/16 at 19:00 Acetaminophen (Tylenol Tab) 650 mg Q6H PRN PO PAIN LEVEL 1-3 OR FEVER Last administered on 04/11/16at 23:01; Admin Dose 650 MG; Start 04/10/16 at 19:00 Acetaminophen/ Hydrocodone Bitart ([place] (5/325)) 1 tab Q6H PRN PO PAIN LEVEL 4 -6 Last administered on 04/11/16at 02:59; Admin Dose 1 TAB; Start 04/10/16 at 19: 00 Acetaminophen/ Hydrocodone Bitart ([place] (5/325)) 2 tab Q6H PRN PO PAIN LEVEL 7 -10; Start 04/10/16 at 19:00 Morphine Sulfate (morphine) 2 mg Q4H PRN IV PAIN LEVEL 7-10 Last administered on 04/12/16at 10:16; Admin Dose 2 MG; Start 04/10/16 at 19:00 Magnesium Hydroxide (Milk Of Mag) 30 ml DAILY PRN PO CONSTIPATION; Start at 19:00 Bisacodyl (Dulcolax Supp) 10 mg DAILY PRN [place] CONSTIPATION; Start 04/10/16 at 19 :00 Pantoprazole 40 mg 40 mg DAILY@06 PO Last administered on 04/12/16at 06:03; Admin Dose 40 MG; Start 04/11/16 at 06:00 Piperacillin Sod/ Tazobactam Sod (Zosyn 3.375gm/ 100 ml (Pmx)) 100 ml @ 200 mls /hr Q8 IVPB Last administered on 04/12/16 06:03; Admin Dose 200 MLS/HR; Start 04/10/16 at 22:00 Miscellaneous Information 1 ea NOTE XX ; Start 04/10/16 at 19:00 Glucose (Glutose) 15 gm Q15M PRN PO DECREASED GLUCOSE; Start 04/10/16 at 19:00 Glucose (Glutose) 22.5 gm Q15M PRN PO DECREASED GLUCOSE; Start 04/10/16 at 19: 00 Dextrose (D50w Syringe) 25 ml Q15M PRN IV DECREASED GLUCOSE; Start 04/10/16 at 19:00 Dextrose (D50w Syringe) 50 ml Q15M PRN IV DECREASED GLUCOSE; Start 04/10/16 at 19:00 Glucagon (Glucagen) 1 mg Q15M PRN IM DECREASED GLUCOSE; Start 04/10/16 at 19:00 Glucose 15 gm 15 gm Q15M PRN BUCCAL DECREASED GLUCOSE; Start 04/10/16 at 19:00 Vancomycin HCl/ Sodium Chloride (Vancocin/NS) 250 ml @ 83.333 mls/ hr Q12H IVPB Last administered on 04/12/16at 10:25; Admin Dose 83.333 MLS/HR; Start 04/11/16 at 09:00 Metoprolol Tartrate (Lopressor) 100 mg BID PO Last administered on 04/12/16at 10 :28; Admin Dose 100 MG; Start 04/11/16 at 09:00 Docusate Sodium (Colace) 100 mg Q12H PO Last administered on 04/12/16 10:27; Admin Dose 100 MG; Start 04/11/16 at 19:00 Polyethylene Glycol (Miralax) 17 gm DAILY PO Last administered on 04/12/16at 10: 27; Admin Dose 17 GM; Start 04/11/16 at 13:00 TOY DWYER M.D. Apr 12, 2016 12:40
[2016-04-12] MEDS: INSULIN GLARGINE [LANtus] 3 ML PEN SC SCH (20:34)
--- NOTE | 2016-04-12 23:13 | CONS ---
Date/Time of Note Date/Time of Note DATE: 04/12/16 TIME: 23:08 Assessment/Plan Assessment/Plan Problems: (1) Diabetic ulcer of right foot Status: Acute (2) Thrombocytopenia Status: Acute (3) Anemia Status: Acute (4) GI bleed Status: Acute Additional Assessment/Plan Local wound care to continue. Daily dressing change to continue. Partial weightbearing with postop shoe the right foot. Patient will be followed in- house. Thank you very much for the consultation. Thank you again for involving me in the care of this patient. If you have any questions regarding this case, please feel free to contact me at pager: or reach me at mobile: [phone]. Consultation Date/Type/Reason Admit Date/Time Apr 10, 2016 at 16:55 Hx of Present Illness This is a 55-year-old -[place] Citizen gentleman who is familiar to my practice. He has multiple medical problems including diabetes mellitus, hypertension, cardiomegaly, legally blind, history of multiple wounds on his feet who is admitted to the hospital with complaints of sharp midsternal to left -sided chest pain. I was consulted for evaluation and continued treatment of his foot wounds. Patient reports no pain in his feet. Denies fever. As per history of present illness. Constitutional: no complaints Eyes: no complaints ENT: no complaints Respiratory: no complaints Cardiovascular: no complaints Gastrointestinal: constipation, decreased appetite, nausea Genitourinary: no complaints Musculoskeletal: other (pain over right foot wound) Skin: no complaints Neurologic: no complaints Endocrine: other (diabetes) Psychological: anxiety, depression Past Medical History As per history of present illness. Past Surgical History As per history of present illness. Social History Alcohol Use: occasionally Smoking Status: Never smoker Drug Use: none Exam/Review of Systems Vital Signs Vitals Vital Signs Date Time Temp Pulse Resp B/P Pulse Ox O2 Delivery O2 Flow Rate FiO2 04/12/16 21:54 2.0 04/12/16 20:32 92 04/12/16 19:02 98.8 18 146/86 93 04/12/16 15:47 Nasal Cannula 04/11/16 01:04 28 Intake and Output 04/11/16 04/11/16 04/12/16 14:59 22:59 06:59 Intake Total 1150 ml 1350 ml Output Total 1400 ml 1200 ml Balance -250 ml 150 ml Exam Foot and ankle exam under examination: GENERAL APPEARANCE: Patient is in no acute distress laying supine in bed VASCULAR EXAM: Dorsalis pedis and posterior tibial pulse weakly palpable bilaterally. Normal capillary filling time noted on exam. Normal temperature gradient noted on exam. Bilateral foot edema noted. Mild varicose veins noted on examination NEUROLOGICAL EXAM: Protective sensation is diminished to sharp, dull, vibratory and temperature stimuli bilaterally. Normal deep tendon reflexes noted. Negative Tinel sign on examination of bilateral lower extremity DERMATOLOGICAL EXAM: Right foot open wound present with fibronecrotic tissue and significant hyperkeratosis. There is nontender to palpation and there is no erythema MUSCULOSKELETAL EXAM: Planus foot type with contracted toes bilaterally. Nontender to palpation IMAGING: Reviewed in chart LABS: Reviewed in chart Results Result Diagram: 04/12/16 1210 04/12/16 0610 Results 24 hrs Laboratory Tests Test 04/12/16 06:10 04/12/16 08:47 04/12/16 08:50 04/12/16 12:10 Alanine Aminotransferase (ALT/SGPT) 36 Albumin 3.4 Albumin/Globulin Ratio 0.62 Alkaline Phosphatase 276 H Anion Gap 14 Aspartate Amino Transf (AST/SGOT) 36 Blood Morphology Comment Blood Urea Nitrogen 12 Calcium Level 8.4 Carbon Dioxide Level 26 Chloride Level 103 Creatinine 0.86 Differential Comment MANUAL DIFF Direct Bilirubin 0.30 #H Globulin 5.40 H Glucose Level 98 # Hematocrit 22.9 L 23.3 L Hemoglobin 7.6 L 7.8 L Indirect Bilirubin 0.9 Lymphocytes # 5.2 H Lymphocytes % 89.0 H Macrocytosis 2+ Magnesium Level 2.2 Mean Corpuscular Hemoglobin 30.5 Mean Corpuscular Hemoglobin Concent 33.0 Mean Corpuscular Volume 92.6 Mean Platelet Volume 8.1 Neutrophils # 0.6 L Neutrophils % 10.0 L Nucleated Red Blood Cells % 6.0 H Phosphorus Level 3.7 Platelet Count 35 L Potassium Level 4.3 Reactive Lymphocytes % 1.0 Red Blood Count 2.47 L Red Cell Distribution Width 22.8 H Sodium Level 139 Total Bilirubin 1.2 Total Protein 8.8 H White Blood Count 5.8 Vancomycin Level Trough 12.0 Bedside Glucose 101 Test 04/12/16 12:59 04/12/16 17:45 04/12/16 20:32 Bedside Glucose 133 208 186 Medications Medications Current Medications Amlodipine Besylate (Norvasc) 5 mg DAILY PO Last administered on 04/12/16at 10: 30; Admin Dose 5 MG; Start 04/11/16 at 09:00 Insulin Glargine 23 unit 23 unit QHS SC Last administered on 04/12/16at 20:34; Admin Dose 23 UNIT; Start 04/10/16 at 21:00 Sodium Chloride (NS) 1,000 ml @ 100 mls/hr Q10H IV Last administered on at 20:29; Admin Dose 100 MLS/HR; Start 04/10/16 at 18:34 Ondansetron HCl (Zofran Inj) 4 mg Q6H PRN IV NAUSEA AND/OR VOMITING; Start 04/10/16 at 19:00 Nitroglycerin (Nitroglycerin (Sl Tab) 0.4 Mg) 1 tab Q5M PRN SL CHEST PAIN; Start 04/10/16 at 19:00 Acetaminophen (Tylenol Tab) 650 mg Q6H PRN PO PAIN LEVEL 1-3 OR FEVER Last administered on 04/11/16at 23:01; Admin Dose 650 MG; Start 04/10/16 at 19:00 Acetaminophen/ Hydrocodone Bitart ([place] (5/325)) 1 tab Q6H PRN PO PAIN LEVEL 4 -6 Last administered on 04/11/16at 02:59; Admin Dose 1 TAB; Start 04/10/16 at 19: 00 Acetaminophen/ Hydrocodone Bitart ([place] (5/325)) 2 tab Q6H PRN PO PAIN LEVEL 7 -10; Start 04/10/16 at 19:00 Morphine Sulfate (morphine) 2 mg Q4H PRN IV PAIN LEVEL 7-10 Last administered on 04/12/16at 20:19; Admin Dose 2 MG; Start 04/10/16 at 19:00 Magnesium Hydroxide (Milk Of Mag) 30 ml DAILY PRN PO CONSTIPATION; Start at 19:00 Bisacodyl (Dulcolax Supp) 10 mg DAILY PRN [place] CONSTIPATION; Start 04/10/16 at 19 :00 Pantoprazole 40 mg 40 mg DAILY@06 PO Last administered on 04/12/16at 06:03; Admin Dose 40 MG; Start 04/11/16 at 06:00 Piperacillin Sod/ Tazobactam Sod (Zosyn 3.375gm/ 100 ml (Pmx)) 100 ml @ 200 mls /hr Q8 IVPB Last administered on 04/12/16at 22:29; Admin Dose 200 MLS/HR; Start 04/10/16 at 22:00 Miscellaneous Information 1 ea NOTE XX ; Start 04/10/16 at 19:00 Glucose (Glutose) 15 gm Q15M PRN PO DECREASED GLUCOSE; Start 04/10/16 at 19:00 Glucose (Glutose) 22.5 gm Q15M PRN PO DECREASED GLUCOSE; Start 04/10/16 at 19: 00 Dextrose (D50w Syringe) 25 ml Q15M PRN IV DECREASED GLUCOSE; Start 04/10/16 at 19:00 Dextrose (D50w Syringe) 50 ml Q15M PRN IV DECREASED GLUCOSE; Start 04/10/16 at 19:00 Glucagon (Glucagen) 1 mg Q15M PRN IM DECREASED GLUCOSE; Start 04/10/16 at 19:00 Glucose 15 gm 15 gm Q15M PRN BUCCAL DECREASED GLUCOSE; Start 04/10/16 at 19:00 Vancomycin HCl/ Sodium Chloride (Vancocin/NS) 250 ml @ 83.333 mls/ hr Q12H IVPB Last administered on 04/12/16at 20:22; Admin Dose 83.333 MLS/HR; Start 04/11/16 at 09:00 Metoprolol Tartrate (Lopressor) 100 mg BID PO Last administered on 04/12/16at 20 :22; Admin Dose 100 MG; Start 04/11/16 at 09:00 Docusate Sodium (Colace) 100 mg Q12H PO Last administered on 04/12/16at 20:21; Admin Dose 100 MG; Start 04/11/16 at 19:00 Polyethylene Glycol (Miralax) 17 gm DAILY PO Last administered on 04/12/16 10: 27; Admin Dose 17 GM; Start 04/11/16 at 13:00 IRENE CARVAJAL DPM Apr 12, 2016 23:13
[2016-04-13] VITALS (16 sets, daily range): BP systolic 129–169; BP diastolic 76–99; PULSE 81–95; RESP 17–20
[2016-04-13] MEDS: morphine 2 MG INJ IV PRN ×4 (00:24→19:55)
[2016-04-13] MEDS: HYDROCODONE/APAP (5/325) TAB PO PRN (06:27)
[2016-04-13] MEDS: PANTOPRAZOLE (EC) 40 MG TAB PO SCH (06:27)
[2016-04-13] MEDS: DOCUSATE SODIUM 100 MG CAP PO SCH ×2 (06:27→19:56)
[2016-04-13] MEDS: SOD CHLORIDE 0.9% 1,000 ML IV SCH ×2 (06:28→16:34)
[2016-04-13] MEDS: PIPER-TAZO 3.375 GM IV (PMX) 100 ML IVPB SCH ×3 (06:28→21:24)
[2016-04-13 07:37] LABS: HEMATOCRIT 23.2 % (42.0-52.0); HEMOGLOBIN 7.8 g/dl (14.0-18.0); MEAN CORPUSCULAR HGB CONC 33.4 g/dl (32.0-37.0); MEAN CORPUSCULAR VOLUME 92.9 fl (82.0-101.0); PLATELET COUNT 45 10^3/UL (140-440); RED CELL DISTRIBUTION WIDTH 22.5 % (11.5-14.5); UNCORRECTED WBC 4.7 10^3/ul (4.8-10.8); WHITE BLOOD COUNT 4.7 10^3/ul (4.8-10.8)
[2016-04-13 07:54] LABS: ALBUMIN 3.4 g/dl (3.3-4.9); POTASSIUM 4.3 mmol/L (3.5-5.1)
[2016-04-13 07:56] LABS: CREATININE 0.76 mg/dl (0.61-1.24)
[2016-04-13 07:57] LABS: ALBUMIN/GLOBULIN RATIO 0.6; BILIRUBIN,DIRECT 0.8 mg/dl (0.00-0.20); BILIRUBIN,INDIRECT 0.8 mg/dl (0-1.1); BILIRUBIN,TOTAL 1.6 mg/dl (0.2-1.3); CALCIUM 8.6 mg/dl (8.4-10.2)
[2016-04-13 08:04] LABS: CONDITION 1; LH ANALYZER COMMENTS 1; MEAN PLATELET VOLUME 8.5 fl (7.4-10.4)
[2016-04-13] MEDS: INSULIN ASPART [NOVOLOG] 3 ML PEN SC SCH ×7 (08:46→21:00)
[2016-04-13 08:56] LABS: MAGNESIUM 2.1 mg/dl (1.7-2.5)
[2016-04-13] MEDS ORDERED: LIDOCAINE 1% (MDV) 20 ML INJ ONE (09:17)
[2016-04-13] MEDS ORDERED: DIPHENHYDRAMINE 50 MG INJ ONE (09:17)
[2016-04-13] MEDS ORDERED: MIDAZOLAM 1 MG/ML 2 ML INJ ONE (09:17)
[2016-04-13] MEDS ORDERED: FENTAnyl 50 MCG/ML VIAL ONE (09:17)
[2016-04-13 10:27] LABS: LYMPHOCYTES # 3.9 10^3/ul (0.8-2.9); NEUTROPHIL # 0.4 10^3/ul (1.6-7.5); PLATELET ESTIMATE PLT APPEAR DECREASED
[2016-04-13] MEDS ORDERED: SOD CHLORIDE 0.9% 250 ML IV* ONE (11:54)
--- NOTE | 2016-04-13 11:54 | PN ---
Date/Time of Note Date/Time of Note DATE: 04/13/16 TIME: 11:44 Assessment/Plan VTE Prophylaxis VTE Prophylaxis Intervention: SCD's Lines/Catheters IV Catheter Type (from Nrs): Peripheral IV Assessment/Plan Assessment/Plan 55-year-old male with: 1. Anemia, acute on chronic with an MCV in the 90s. He is also pancytopenic, primarily thrombocytopenic. HIV negative. Appreciate Hematology eval and plan of care. BM bx pending Hb up to 7.6,post 4 units pRBC since admission and hb stable so far Will plan for additional 2 units today Follow up bone marrow biopsy results 2. Fever with likely acute infection of his right 1st and 2nd toe. ESR elevated. Afebrile The patient also had a rash, maculopapular. He does have a history of methicillin-resistant Staphylococcus aureus skin and soft-tissue infection years ago requiring extensive debridement of the left upper extremity. Continue Vancomycin and Zosyn. ID consult with Dr Salazar Blood cultures NGTD and wound cultures pending. Wound care and Dr Thomas, podiatry to see patient. MRI right foot today 3. Diabetes mellitus. A1c back at 7.2 ...Continue current insulin regimen, keeping off glyburide. On Tradjenta Appreciate nurse educator recommendations. 4. Cardiomegaly, EF 50%. Patient with another episode of NSVT x 8 beats this AM asymptomatic Continue Lopressor Continue telemetry monitoring. Electrolytes stable again today. 5. Hypertension. Continue beta blockers and Norvasc. Will hold benazepril for now. 6. Constipation: Miralax and colace scheduled and add MOM along with dulcolax prn Prophylaxis. Proton pump inhibitors for GI prophylaxis and SCDs for DVT prophylaxis. DISPOSITION: Close monitoring on Tele, MRI right foot and f/u BM bx results, wound care and follow up further ID recs Subjective 24 Hr Interval Summary Free Text/Dictation Patient remains stable today With some episode Of NSVT asymptomatic Afebrile S/p BM bx this AM and HB stable but still low at 7.6 Platelets better Exam/Review of Systems Vital Signs Vitals Vital Signs Date Time Temp Pulse Resp B/P Pulse Ox O2 Delivery O2 Flow Rate FiO2 04/13/16 08:18 95 04/13/16 08:10 Nasal Cannula 2.0 04/13/16 07:26 98.9 18 160/94 91 04/11/16 01:04 28 Intake and Output 04/12/16 04/12/16 04/13/16 15:00 23:00 07:00 Intake Total 1100 ml 600 ml Output Total 1000 ml 700 ml Balance 100 ml -100 ml Exam Constitutional: alert, oriented, other (blind), well developed Respiratory: clear to auscultation, normal air movement Cardiovascular: nl pulses, regular rate and rhythm Gastrointestinal: non-tender, soft Musculoskeletal: nl gait and stance, other (right foot DM ulcer ) Extremities: normal pulses 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 ), nl mental status, nl speech, nl strength Results Result Diagram: 04/13/16 0710 04/13/16 0710 Results 24 hrs Laboratory Tests Test 04/12/16 12:10 04/12/16 12:59 04/12/16 17:45 04/12/16 20:32 Hematocrit 23.3 L Hemoglobin 7.8 L Bedside Glucose 133 208 186 Test 04/13/16 01:56 04/13/16 07:10 04/13/16 08:42 Bedside Glucose 159 161 Alanine Aminotransferase (ALT/SGPT) 46 Albumin 3.4 Albumin/Globulin Ratio 0.60 Alkaline Phosphatase 296 H Anion Gap 14 Aspartate Amino Transf (AST/SGOT) 39 Band Neutrophils % 6.0 H Blood Morphology Comment Blood Urea Nitrogen 11 Calcium Level 8.6 Carbon Dioxide Level 26 Chloride Level 100 Creatinine 0.76 Differential Comment MANUAL DIFF Direct Bilirubin 0.80 #H Eosinophils # 0.0 Eosinophils % 1.0 Globulin 5.60 H Glucose Level 174 Hematocrit 23.2 L Hemoglobin 7.8 L Indirect Bilirubin 0.8 Lymphocytes # 3.9 H Lymphocytes % 82.0 H Magnesium Level 2.1 Mean Corpuscular Hemoglobin 31.0 Mean Corpuscular Hemoglobin Concent 33.4 Mean Corpuscular Volume 92.9 Mean Platelet Volume 8.5 Monocytes # 0.0 L Monocytes % 1.0 Neutrophils # 0.4 L Neutrophils % 9.0 L Phosphorus Level 3.0 Platelet Count 45 #L Platelet Estimate PLT APPEAR DECREASED Potassium Level 4.3 Promyelocytes # 0.0 Promyelocytes % 1.0 H Red Blood Count 2.50 L Red Cell Distribution Width 22.5 H Sodium Level 136 Total Bilirubin 1.6 H Total Protein 9.0 H White Blood Count 4.7 L Medications Medications Current Medications Amlodipine Besylate (Norvasc) 5 mg DAILY PO Last administered on 04/12/16 10: 30; Admin Dose 5 MG; Start 04/11/16 at 09:00 Insulin Glargine 23 unit 23 unit QHS SC Last administered on 04/12/16 20:34; Admin Dose 23 UNIT; Start 04/10/16 at 21:00 Sodium Chloride (NS) 1,000 ml @ 100 mls/hr Q10H IV Last administered on 20:29; Admin Dose 100 MLS/HR; Start 04/10/16 at 18:34 Ondansetron HCl (Zofran Inj) 4 mg Q6H PRN IV NAUSEA AND/OR VOMITING; Start 04/10/16 at 19:00 Nitroglycerin (Nitroglycerin (Sl Tab) 0.4 Mg) 1 tab Q5M PRN SL CHEST PAIN; Start 04/10/16 at 19:00 Acetaminophen (Tylenol Tab) 650 mg Q6H PRN PO PAIN LEVEL 1-3 OR FEVER Last administered on 04/11/16at 23:01; Admin Dose 650 MG; Start 04/10/16 at 19:00 Acetaminophen/ Hydrocodone Bitart ([place] (5/325)) 1 tab Q6H PRN PO PAIN LEVEL 4 -6 Last administered on 04/13/16at 06:27; Admin Dose 1 TAB; Start 04/10/16 at 19: 00 Acetaminophen/ Hydrocodone Bitart ([place] (5/325)) 2 tab Q6H PRN PO PAIN LEVEL 7 -10; Start 04/10/16 at 19:00 Morphine Sulfate (morphine) 2 mg Q4H PRN IV PAIN LEVEL 7-10 Last administered on 04/13/16at 00:24; Admin Dose 2 MG; Start 04/10/16 at 19:00 Magnesium Hydroxide (Milk Of Mag) 30 ml DAILY PRN PO CONSTIPATION; Start at 19:00 Bisacodyl (Dulcolax Supp) 10 mg DAILY PRN [place] CONSTIPATION; Start 04/10/16 at 19 :00 Pantoprazole 40 mg 40 mg DAILY@06 PO Last administered on 04/13/16at 06:27; Admin Dose 40 MG; Start 04/11/16 at 06:00 Piperacillin Sod/ Tazobactam Sod (Zosyn 3.375gm/ 100 ml (Pmx)) 100 ml @ 200 mls /hr Q8 IVPB Last administered on 04/13/16at 06:28; Admin Dose 200 MLS/HR; Start 04/10/16 at 22:00 Miscellaneous Information 1 ea NOTE XX ; Start 04/10/16 at 19:00 Glucose (Glutose) 15 gm Q15M PRN PO DECREASED GLUCOSE; Start 04/10/16 at 19:00 Glucose (Glutose) 22.5 gm Q15M PRN PO DECREASED GLUCOSE; Start 04/10/16 at 19: 00 Dextrose (D50w Syringe) 25 ml Q15M PRN IV DECREASED GLUCOSE; Start 04/10/16 at 19:00 Dextrose (D50w Syringe) 50 ml Q15M PRN IV DECREASED GLUCOSE; Start 04/10/16 at 19:00 Glucagon (Glucagen) 1 mg Q15M PRN IM DECREASED GLUCOSE; Start 04/10/16 at 19:00 Glucose 15 gm 15 gm Q15M PRN BUCCAL DECREASED GLUCOSE; Start 04/10/16 at 19:00 Vancomycin HCl/ Sodium Chloride (Vancocin/NS) 250 ml @ 83.333 mls/ hr Q12H IVPB Last administered on 04/12/16at 20:22; Admin Dose 83.333 MLS/HR; Start 04/11/16 at 09:00 Metoprolol Tartrate (Lopressor) 100 mg BID PO Last administered on 04/12/16at 20 :22; Admin Dose 100 MG; Start 04/11/16 at 09:00 Docusate Sodium (Colace) 100 mg Q12H PO Last administered on 04/13/16at 06:27; Admin Dose 100 MG; Start 04/11/16 at 19:00 Polyethylene Glycol (Miralax) 17 gm DAILY PO Last administered on 04/12/16at 10: 27; Admin Dose 17 GM; Start 04/11/16 at 13:00 LAUREL ANDERSON Apr 13, 2016 11:53
--- NOTE | 2016-04-13 12:10 | RADRPT ---
PROCEDURE: CT guided bone marrow aspiration and left iliac bone biopsy. CLINICAL INDICATION: History of pancytopenia. TECHNIQUE: Informed consent was obtained. The procedure, risks, benefits, complications and alternatives were e xplained to the patient. Risks including bleeding and infection were explained. The patient understo od and was willing to proceed. A procedural pause was performed. The patient's name, date of , and procedure to be performed w ere verified. Using local anesthetic, sterile technique and CT guidance, an 11-gauge On Control bone biopsy needle was advanced into the left iliac bone via a posterior approach. Bone marrow aspiration was perform ed yielding approximately 1 ml. The bone biopsy needle was then advanced an additional 4 cm using [employer] power drill device and tissue was obtained. Adequate tissue was obtained according to the pathol ogist present during the procedure. The needle was removed. A postprocedural scan was performed. A dressing was applied. The patient tolerated procedure well. COMPARISON: None. FINDINGS: Initial images demonstrate the tip of the needle at the posterior margin of the left iliac bone. [place] bsequent images demonstrate the needle within the bone. Post biopsy images demonstrate no immediate complication. IMPRESSION: 1. Successful CT guided bone marrow biopsy. 2. Limited ability to aspirate bone marrow. RPTAT: QQ .Guzman Sifuentes MD, MD Date Time Electronically viewed and signed by .Guzman Sifuentes MD, on 04/13/2016 12:09 .R/
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
[2016-04-13] MEDS: VANCOMYCIN 1.5 GM in SOD CHLORIDE 0.9% 250 ML IVPB SCH (14:19)
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
--- NOTE | 2016-04-13 14:44 | CONS ---
Date/Time of Note Date/Time of Note DATE: 04/13/16 TIME: 14:42 Assessment/Plan Assessment/Plan Chief Complaint/Hosp Course 55-year-old gentleman with multiple medical problems including insulin dependant DM (not compliant), 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 He also reported easy bruising but not bleeding. Initial labs also revealed pancytopenia with a Hg 6.7 and platelets in 30's. Pt has required a blood transfusion in the past but does not know why he is anemic or thrombocytopenic. On this admission pt was transfused 2 units of PRBCs with only minimal improvement in the Hg. He is not currently bleeding. Peripheral smear shows no evidence of schistocytes or microangiopathic hemolytic anemia. Problems: Additional Assessment/Plan -f/u results of bone marrow bx -f/u haptoglobin although hemolysis unlikely with normal LDH and peripheral smear without schistocytes. -check EPO level to see if patient would benefit form procrit. -f/u blood cultures as pt appears to have a disseminated infection which may be the cause of this severe anemia. cultures are thus far negative -agree with ortho consult to r/o osteomyelitis -agree with JOSE J to rule out endocarditis. appreciate cardiology recs Approximately 40 min were spent at patient's bedside Consultation Date/Type/Reason Admit Date/Time Apr 10, 2016 at 16:55 Initial Consult Date 04/11/16 Type of Consultation: Hematology Reason for Consultation pancytopenia Referring Provider: LAUREL ANDERSON 24 HR Interval Summary Free Text/Dictation pt had bone marrow bx this morning Exam/Review of Systems Vital Signs Vitals Vital Signs Date Time Temp Pulse Resp B/P Pulse Ox O2 Delivery O2 Flow Rate FiO2 04/13/16 12:50 93 04/13/16 11:58 99.8 17 133/76 94 04/13/16 08:10 Nasal Cannula 2.0 04/11/16 01:04 28 Intake and Output 04/12/16 04/12/16 04/13/16 15:00 23:00 07:00 Intake Total 1100 ml 600 ml Output Total 1000 ml 700 ml Balance 100 ml -100 ml Exam Constitutional: alert, frail, oriented Psych: anxiety, depression Head: normocephalic Eyes: other (bilateral blindness) ENMT: nl external ears & nose Neck: non-tender, supple Respiratory: clear to auscultation, normal air movement Cardiovascular: regular rate and rhythm Gastrointestinal: soft Musculoskeletal: nl extremities to inspection, nl gait and stance Extremities: normal pulses Results Result Diagram: 04/13/16 0710 04/13/16 0710 Results 24 hrs Laboratory Tests Test 04/12/16 17:45 04/12/16 20:32 04/13/16 01:56 04/13/16 07:10 Bedside Glucose 208 186 159 Alanine Aminotransferase (ALT/SGPT) 46 Albumin 3.4 Albumin/Globulin Ratio 0.60 Alkaline Phosphatase 296 H Anion Gap 14 Aspartate Amino Transf (AST/SGOT) 39 Band Neutrophils % 6.0 H Blood Morphology Comment Blood Urea Nitrogen 11 Calcium Level 8.6 Carbon Dioxide Level 26 Chloride Level 100 Creatinine 0.76 Differential Comment MANUAL DIFF Direct Bilirubin 0.80 #H Eosinophils # 0.0 Eosinophils % 1.0 Globulin 5.60 H Glucose Level 174 Hematocrit 23.2 L Hemoglobin 7.8 L Indirect Bilirubin 0.8 Lymphocytes # 3.9 H Lymphocytes % 82.0 H Magnesium Level 2.1 Mean Corpuscular Hemoglobin 31.0 Mean Corpuscular Hemoglobin Concent 33.4 Mean Corpuscular Volume 92.9 Mean Platelet Volume 8.5 Monocytes # 0.0 L Monocytes % 1.0 Neutrophils # 0.4 L Neutrophils % 9.0 L Phosphorus Level 3.0 Platelet Count 45 #L Platelet Estimate PLT APPEAR DECREASED Potassium Level 4.3 Promyelocytes # 0.0 Promyelocytes % 1.0 H Red Blood Count 2.50 L Red Cell Distribution Width 22.5 H Sodium Level 136 Total Bilirubin 1.6 H Total Protein 9.0 H White Blood Count 4.7 L Test 04/13/16 08:42 04/13/16 12:42 Bedside Glucose 161 121 Medications Medications Current Medications Insulin Glargine 23 unit 23 unit QHS SC Last administered on 04/12/16at 20:34; Admin Dose 23 UNIT; Start 04/10/16 at 21:00 Sodium Chloride (NS) 1,000 ml @ 100 mls/hr Q10H IV Last administered on at 20:29; Admin Dose 100 MLS/HR; Start 04/10/16 at 18:34 Ondansetron HCl (Zofran Inj) 4 mg Q6H PRN IV NAUSEA AND/OR VOMITING; Start 04/10/16 at 19:00 Nitroglycerin (Nitroglycerin (Sl Tab) 0.4 Mg) 1 tab Q5M PRN SL CHEST PAIN; Start 04/10/16 at 19:00 Acetaminophen (Tylenol Tab) 650 mg Q6H PRN PO PAIN LEVEL 1-3 OR FEVER Last administered on 04/11/16at 23:01; Admin Dose 650 MG; Start 04/10/16 at 19:00 Acetaminophen/ Hydrocodone Bitart ([place] (5/325)) 1 tab Q6H PRN PO PAIN LEVEL 4 -6 Last administered on 04/13/16at 06:27; Admin Dose 1 TAB; Start 04/10/16 at 19: 00 Acetaminophen/ Hydrocodone Bitart ([place] (5/325)) 2 tab Q6H PRN PO PAIN LEVEL 7 -10; Start 04/10/16 at 19:00 Morphine Sulfate (morphine) 2 mg Q4H PRN IV PAIN LEVEL 7-10 Last administered on 04/13/16at 14:18; Admin Dose 2 MG; Start 04/10/16 at 19:00 Magnesium Hydroxide (Milk Of Mag) 30 ml DAILY PRN PO CONSTIPATION; Start at 19:00 Bisacodyl (Dulcolax Supp) 10 mg DAILY PRN [place] CONSTIPATION; Start 04/10/16 at 19 :00 Pantoprazole 40 mg 40 mg DAILY@06 PO Last administered on 04/13/16at 06:27; Admin Dose 40 MG; Start 04/11/16 at 06:00 Piperacillin Sod/ Tazobactam Sod (Zosyn 3.375gm/ 100 ml (Pmx)) 100 ml @ 200 mls /hr Q8 IVPB Last administered on 04/13/16at 06:28; Admin Dose 200 MLS/HR; Start 04/10/16 at 22:00 Miscellaneous Information 1 ea NOTE XX ; Start 04/10/16 at 19:00 Glucose (Glutose) 15 gm Q15M PRN PO DECREASED GLUCOSE; Start 04/10/16 at 19:00 Glucose (Glutose) 22.5 gm Q15M PRN PO DECREASED GLUCOSE; Start 04/10/16 at 19: 00 Dextrose (D50w Syringe) 25 ml Q15M PRN IV DECREASED GLUCOSE; Start 04/10/16 at 19:00 Dextrose (D50w Syringe) 50 ml Q15M PRN IV DECREASED GLUCOSE; Start 04/10/16 at 19:00 Glucagon (Glucagen) 1 mg Q15M PRN IM DECREASED GLUCOSE; Start 04/10/16 at 19:00 Glucose 15 gm 15 gm Q15M PRN BUCCAL DECREASED GLUCOSE; Start 04/10/16 at 19:00 Vancomycin HCl/ Sodium Chloride (Vancocin/NS) 250 ml @ 83.333 mls/ hr Q12H IVPB Last administered on 04/13/16at 14:19; Admin Dose 83.333 MLS/HR; Start 04/11/16 at 09:00 Metoprolol Tartrate (Lopressor) 100 mg BID PO Last administered on 04/12/16at 20 :22; Admin Dose 100 MG; Start 04/11/16 at 09:00 Docusate Sodium (Colace) 100 mg Q12H PO Last administered on 04/13/16at 06:27; Admin Dose 100 MG; Start 04/11/16 at 19:00 Polyethylene Glycol (Miralax) 17 gm DAILY PO Last administered on 04/12/16at 10: 27; Admin Dose 17 GM; Start 04/11/16 at 13:00 Amlodipine Besylate (Norvasc) 2.5 mg DAILY PO ; Start 04/14/16 at 09:00 Lisinopril (Zestril) 5 mg DAILY PO ; Start 04/13/16 at 15:00 TOY DWYER M.D. Apr 13, 2016 14:44
[2016-04-13] MEDS: MAGNESIUM HYDROXIDE 30ML CUP PO PRN (15:13)
[2016-04-13] MEDS: POLYETHYLENE GLYCOL 17 GM PACKET PO SCH (15:13)
[2016-04-13] MEDS: METOPROLOL 100 MG TAB PO SCH ×2 (15:14→20:32)
[2016-04-13] MEDS: LISINOPRIL 5 MG TAB PO SCH (15:14)
--- NOTE | 2016-04-13 17:17 | PN ---
DATE: SUBJECTIVE: No changes overnight. The patient is alert, sitting at the edge of the bed, looks comf ortable. VITAL SIGNS: T-max 99.8. WBC 4.7, H and H 7.8 and 23.2, platelet count 45, neutrophils 9, bands 6, lymphs 82. BUN 11, creatinine 0.76. MICROBIOLOGY: Blood cultures have been negative. DIAGNOSTICS: The patient had a CT-guided bone marrow biopsy done this morning. X-ray of the foot o n admission revealed no acute abnormalities. ANTIMICROBIALS: 1. Vancomycin. 2. Zosyn. PHYSICAL EXAMINATION: GENERAL: Obese, well-developed, middle-aged man who is awake, in no distress. HEENT: Head atraumatic, normocephalic. Sclerae anicteric. Buccal mucosa pink. NECK: Supple. Trachea midline. LUNGS: Chest rise symmetrical. Breath sounds clear, diminished at bases. HEART: S1, S2. ABDOMEN: Soft. Bowel tones present. EXTREMITIES: With right foot slightly edematous. ASSESSMENT: 1. Right diabetic foot ulcer, possible toe osteomyelitis, podiatry follows. 2. Systemic inflammatory response syndrome with fever on admission, elevated ESR, significant throm bocytopenia and anemia. The patient is being followed by hematology team, status post CT-guided bon e marrow biopsy. 3. Diabetes. 4. Hypertension. 5. Legally blind. PLAN: The patient remains stable. Recommend MRI of his right foot to rule out osteomyelitis. We w ill also order urine culture to make sure he does not have UTI. Await bone marrow biopsy results. Follow podiatry and oncology recommendations. Dictated By: JUVENAL SANCHEZ QUAL FIELD MANAGER for REJI BEDOYA/JOSE Conf#: [id number] DID#: [id number]
[2016-04-13] MEDS: INSULIN GLARGINE [LANtus] 3 ML PEN SC SCH (20:45)
--- NOTE | 2016-04-13 23:29 | PN ---
Date/Time of Note Date/Time of Note DATE: 04/13/16 TIME: 23:29 Assessment/Plan Lines/Catheters IV Catheter Type (from Nrsg): Peripheral IV Assessment/Plan Problems: (1) Diabetic ulcer of right foot Status: Acute (2) Diabetes, polyneuropathy Assessment/Plan Daily dressing change to continue. Partial weightbearing okay. Patient will be followed in-house. Subjective 24 Hr Interval Summary Patient was seen at bedside. Patient is in no acute distress. Patient reports no new adverse events. Patient denies fever, chills, nausea or vomiting. Patient denies pain. Patient denies recent trauma. Patient does not report any new problems. Pain Control: well controlled Exam/Review of Systems Vital Signs Vitals Vital Signs Date Time Temp Pulse Resp B/P Pulse Ox O2 Delivery O2 Flow Rate FiO2 04/25/16 08:00 97.8 80 17 132/77 98 Room Air Intake and Output 04/24/16 04/24/16 04/25/16 15:00 23:00 07:00 Intake Total 2230 ml 340 ml Output Total 1200 ml Balance 1030 ml 340 ml Exam Free Text/Dictation GENERAL APPEARANCE: Patient is in no acute distress laying supine in bed VASCULAR EXAM: Dorsalis pedis and posterior tibial pulse weakly palpable bilaterally. Normal capillary filling time noted on exam. Normal temperature gradient noted on exam. Bilateral foot edema noted. Mild varicose veins noted on examination NEUROLOGICAL EXAM: Protective sensation is diminished to sharp, dull, vibratory and temperature stimuli bilaterally. Normal deep tendon reflexes noted. Negative Tinel sign on examination of bilateral lower extremity DERMATOLOGICAL EXAM: Right foot open wound present with fibronecrotic tissue and significant hyperkeratosis; unchanged since last visit. There is nontender to palpation and there is no erythema MUSCULOSKELETAL EXAM: Planus foot type with contracted toes bilaterally. Nontender to palpation Results Result Diagram: 04/25/16 0450 04/25/16 0450 IRENE CARVAJAL DPM Apr 13, 2016 23:29
[2016-04-14] VITALS (40 sets, daily range): BP systolic 128–154; BP diastolic 78–95; PULSE 76–95; RESP 0–26
[2016-04-14] MEDS: VANCOMYCIN 1.75 GM in NS 500 ML IVPB SCH ×2 (00:30→12:34)
[2016-04-14] MEDS: morphine 2 MG INJ IV PRN ×5 (00:35→20:41)
[2016-04-14] MEDS: SOD CHLORIDE 0.9% 1,000 ML IV SCH ×3 (02:34→18:15)
[2016-04-14] MEDS: PIPER-TAZO 3.375 GM IV (PMX) 100 ML IVPB SCH ×3 (05:23→21:00)
[2016-04-14] MEDS: PANTOPRAZOLE (EC) 40 MG TAB PO SCH (05:23)
[2016-04-14] MEDS: DOCUSATE SODIUM 100 MG CAP PO SCH ×3 (07:00→20:42)
--- NOTE | 2016-04-14 07:30 | RADRPT ---
PROCEDURE: MRI OF THE RIGHT FOOT. CLINICAL INDICATION: Cellulitis. Clinical concern is for osteomyelitis. TECHNIQUE: Multiple MR pulse sequences in multiple planes were obtained. Images were interpreted o n the high-resolution PACS system.. COMPARISON: None available. Correlation with radiographs from 04/10/2016 FINDINGS: There is abnormal bone marrow edema is seen at the second middle and distal phalanges best seen on t he sagittal sequence image 16 with infiltration of the bone bone marrow signal consistent with osteo myelitis, if there is an ulcer in this region. No additional foci of osteomyelitis are identified. There is mild to moderate first MTP joint arthrosis with partial cartilage loss over the metatarsal head and sesamoid margins. A small effusion is seen at the first MTP joint and the capsular struct ures are intact. There is moderate arthrosis noted at the second through fourth tarsometatarsal join t with fragmentation dorsally at the second metatarsal, possibly early neuropathic arthropathy. There is a mild amount of edema dorsum in the subcutaneous soft tissues. No evidence for a drainabl e fluid collection. There is moderate to severe fatty atrophy of the plantar musculature and edema, likely from denervation effect or diabetic microangiopathy. An up to 2 mm interdigital neuroma is s een at the second webspace. IMPRESSION: 1. Evidence of osteomyelitis at the second middle and distal phalanges. 2. Moderate subcutaneous edema over the dorsum of the forefoot and second ray, correlating with the patient's history of cellulitis. 3. No evidence for a drainable fluid collection at this time. 4. Moderate arthrosis at the tarsometatarsal joints with dorsal productive change and possible frag mentation of the second metatarsal, either degenerative in nature or from early neuropathic arthropa thy. RPTAT: RR .Javad Jones MD, MD Date Time Electronically viewed and signed by .Javad Jonse MD, MD on 04/14/2016 07:30 .d/
[2016-04-14] MEDS: INSULIN ASPART [NOVOLOG] 3 ML PEN SC SCH ×7 (07:55→20:54)
[2016-04-14] MEDS: METOPROLOL 100 MG TAB PO SCH ×2 (08:22→20:42)
[2016-04-14] MEDS: POLYETHYLENE GLYCOL 17 GM PACKET PO SCH (08:22)
[2016-04-14] MEDS: LISINOPRIL 5 MG TAB PO SCH (08:23)
[2016-04-14] MEDS: AMLODIPINE 2.5 MG TAB PO SCH (08:23)
[2016-04-14 08:35] LABS: MEAN CORPUSCULAR HGB CONC 33.4 g/dl (32.0-37.0); MEAN PLATELET VOLUME 8.3 fl (7.4-10.4); PLATELET COUNT 47 10^3/UL (140-440); RED CELL DISTRIBUTION WIDTH 22.6 % (11.5-14.5); UNCORRECTED WBC 4.8 10^3/ul (4.8-10.8); WHITE BLOOD COUNT 4.8 10^3/ul (4.8-10.8)
[2016-04-14 08:39] LABS: CONDITION 1; LH ANALYZER COMMENTS 1
[2016-04-14 08:48] LABS: POTASSIUM 4.7 mmol/L (3.5-5.1)
[2016-04-14 08:51] LABS: CREATININE 0.74 mg/dl (0.61-1.24)
[2016-04-14 08:52] LABS: CALCIUM 8.6 mg/dl (8.4-10.2)
[2016-04-14 09:13] LABS: MAGNESIUM 2.2 mg/dl (1.7-2.5); PHOSPHORUS 3.1 mg/dl (2.5-4.9)
[2016-04-14] MEDS ORDERED: EPHEDrine SULFATE 50 MG/5 ML SYG ONE (10:32)
[2016-04-14] MEDS ORDERED: FENTAnyl 50 MCG/ML VIAL ONE (10:32)
[2016-04-14] MEDS ORDERED: PROPOFOL 20 ML ONE (10:33)
[2016-04-14 11:06] LABS: LYMPHOCYTES # 4.2 10^3/ul (0.8-2.9); NEUTROPHIL # 0.3 10^3/ul (1.6-7.5); PLATELET ESTIMATE PLT APPEAR DECREASED
--- NOTE | 2016-04-14 12:03 | CONS ---
Date/Time of Note Date/Time of Note DATE: 04/14/16 TIME: 11:57 Assessment/Plan Assessment/Plan Additional Assessment/Plan Nonsustained ventricular tachycardia Cardiomyopathy with ejection fraction 50% Pancytopenia Hypertension Diabetes Osteomyelitis of the foot -Transesophageal echocardiogram requested to rule out endocarditis without any evidence of vegetations. MR of the foot with evidence of osteomyelitis, which is likely infectious source. Patient still with brief episodes of nonsustained ventricular tachycardia noted on telemetry. Would continue beta alma, maintain potassium above 4.0 and magnesium above 2.0. Consultation Date/Type/Reason Admit Date/Time Apr 10, 2016 at 16:55 Initial Consult Date 04/11/16 Type of Consultation: cv Referring Provider: LAUREL ANDERSON 24 HR Interval Summary Free Text/Dictation Patient feels the same, complains of fatigue Exam/Review of Systems Vital Signs Vitals Vital Signs Date Time Temp Pulse Resp B/P Pulse Ox O2 Delivery O2 Flow Rate FiO2 04/14/16 11:14 98.2 78 18 140/81 99 Nasal Cannula 3.0 04/11/16 01:04 28 Intake and Output 04/13/16 04/13/16 04/14/16 15:00 23:00 07:00 Intake Total 1200 ml 1350 ml 2400 ml Output Total 2400 ml 950 ml Balance 1200 ml -1050 ml 1450 ml Exam No apparent distress Constitutional: alert, oriented Head: normocephalic Neck: supple Respiratory: other (course breath sounds bilaterally, no wheezing) Cardiovascular: other (S1-S2 heard), regular rate and rhythm Gastrointestinal: bowel sounds, non-tender, soft Extremities: edema Results Result Diagram: 04/14/16 0820 04/14/16 0820 Results 24 hrs Laboratory Tests Test 04/13/16 12:42 04/13/16 18:30 04/13/16 20:35 04/14/16 07:51 Bedside Glucose 121 112 118 126 Test 04/14/16 08:20 Anion Gap 15 Band Neutrophils % 4.0 Blood Morphology Comment Blood Urea Nitrogen 11 Calcium Level 8.6 Carbon Dioxide Level 27 Chloride Level 101 Creatinine 0.74 Differential Comment MANUAL DIFF Eosinophils # 0.0 Eosinophils % 1.0 Glucose Level 136 Hematocrit 27.0 L Hemoglobin 9.0 L Lymphocytes # 4.2 H Lymphocytes % 88.0 H Magnesium Level 2.2 Mean Corpuscular Hemoglobin 30.0 Mean Corpuscular Hemoglobin Concent 33.4 Mean Corpuscular Volume 90.0 Mean Platelet Volume 8.3 Monocytes # 0.0 L Monocytes % 1.0 Neutrophils # 0.3 L Neutrophils % 6.0 L Phosphorus Level 3.1 Platelet Count 47 L Platelet Estimate PLT APPEAR DECREASED Potassium Level 4.7 Red Blood Count 3.00 L Red Cell Distribution Width 22.6 H Sodium Level 138 White Blood Count 4.8 Medications Medications Current Medications Insulin Glargine 23 unit 23 unit QHS SC Last administered on 04/13/16at 20:45; Admin Dose 23 UNIT; Start 04/10/16 at 21:00 Sodium Chloride (NS) 1,000 ml @ 100 mls/hr Q10H IV Last administered on 20:29; Admin Dose 100 MLS/HR; Start 04/10/16 at 18:34 Ondansetron HCl (Zofran Inj) 4 mg Q6H PRN IV NAUSEA AND/OR VOMITING; Start 04/10/16 at 19:00 Nitroglycerin (Nitroglycerin (Sl Tab) 0.4 Mg) 1 tab Q5M PRN SL CHEST PAIN; Start 04/10/16 at 19:00 Acetaminophen (Tylenol Tab) 650 mg Q6H PRN PO PAIN LEVEL 1-3 OR FEVER Last administered on 04/11/16 23:01; Admin Dose 650 MG; Start 04/10/16 at 19:00 Acetaminophen/ Hydrocodone Bitart ([place] (5/325)) 1 tab Q6H PRN PO PAIN LEVEL 4 -6 Last administered on 04/13/16 06:27; Admin Dose 1 TAB; Start 04/10/16 at 19: 00 Acetaminophen/ Hydrocodone Bitart ([place] (5/325)) 2 tab Q6H PRN PO PAIN LEVEL 7 -10; Start 04/10/16 at 19:00 Morphine Sulfate (morphine) 2 mg Q4H PRN IV PAIN LEVEL 7-10 Last administered on 04/14/16 05:25; Admin Dose 2 MG; Start 04/10/16 at 19:00 Magnesium Hydroxide (Milk Of Mag) 30 ml DAILY PRN PO CONSTIPATION Last administered on 04/13/16 15:13; Admin Dose 30 ML; Start 04/10/16 at 19:00 Bisacodyl (Dulcolax Supp) 10 mg DAILY PRN [place] CONSTIPATION; Start 04/10/16 at 19 :00 Pantoprazole 40 mg 40 mg DAILY@06 PO Last administered on 04/14/16at 05:23; Admin Dose 40 MG; Start 04/11/16 at 06:00 Piperacillin Sod/ Tazobactam Sod (Zosyn 3.375gm/ 100 ml (Pmx)) 100 ml @ 200 mls /hr Q8 IVPB Last administered on 04/14/16at 05:23; Admin Dose 200 MLS/HR; Start 04/10/16 at 22:00 Miscellaneous Information 1 ea NOTE XX ; Start 04/10/16 at 19:00 Glucose (Glutose) 15 gm Q15M PRN PO DECREASED GLUCOSE; Start 04/10/16 at 19:00 Glucose (Glutose) 22.5 gm Q15M PRN PO DECREASED GLUCOSE; Start 04/10/16 at 19: 00 Dextrose (D50w Syringe) 25 ml Q15M PRN IV DECREASED GLUCOSE; Start 04/10/16 at 19:00 Dextrose (D50w Syringe) 50 ml Q15M PRN IV DECREASED GLUCOSE; Start 04/10/16 at 19:00 Glucagon (Glucagen) 1 mg Q15M PRN IM DECREASED GLUCOSE; Start 04/10/16 at 19:00 Glucose (Glutose) 15 gm Q15M PRN BUCCAL DECREASED GLUCOSE; Start 04/10/16 at 19 :00 Metoprolol Tartrate (Lopressor) 100 mg BID PO Last administered on 04/14/16at 08 :22; Admin Dose 100 MG; Start 04/11/16 at 09:00 Docusate Sodium (Colace) 100 mg Q12H PO Last administered on 04/14/16at 08:24; Admin Dose 100 MG; Start 04/11/16 at 19:00 Polyethylene Glycol (Miralax) 17 gm DAILY PO Last administered on 04/14/16at 08: 22; Admin Dose 17 GM; Start 04/11/16 at 13:00 Amlodipine Besylate (Norvasc) 2.5 mg DAILY PO Last administered on 04/14/16 08 :23; Admin Dose 2.5 MG; Start 04/14/16 at 09:00 Lisinopril 5 mg 5 mg DAILY PO Last administered on 04/14/16at 08:23; Admin Dose 5 MG; Start 04/13/16 at 15:00 Vancomycin HCl/ Sodium Chloride (Vancocin/NS) 500 ml @ 125 mls/hr Q12H IVPB Last administered on 04/14/16at 00:30; Admin Dose 125 MLS/HR; Start 04/14/16 at 00:00 Eyal Shipley DO Apr 14, 2016 12:03
--- NOTE | 2016-04-14 13:12 | CONS ---
Date/Time of Note Date/Time of Note DATE: 04/14/16 TIME: 13:09 Consult Date/Type/Reason Admit Date/Time Apr 10, 2016 at 16:55 Initial Consult Date 04/11/16 Type of Consultation: ID Ordering Provider: LAUREL RUIZ Subjective no acute events over night, no fevers, nad Objective Vital Signs Date Time Temp Pulse Resp B/P Pulse Ox O2 Delivery O2 Flow Rate FiO2 04/14/16 12:27 81 04/14/16 12:11 98.0 18 137/78 97 04/14/16 11:53 Room Air 04/14/16 11:14 3.0 04/11/16 01:04 28 Intake and Output 04/13/16 04/13/16 04/14/16 15:00 23:00 07:00 Intake Total 1200 ml 1350 ml 2400 ml Output Total 2400 ml 950 ml Balance 1200 ml -1050 ml 1450 ml Results/Medications Result Diagram: 04/14/16 0820 04/14/16 0820 Results 24 hrs Laboratory Tests Test 04/13/16 18:30 04/13/16 20:35 04/14/16 07:51 04/14/16 08:20 Bedside Glucose 112 118 126 Anion Gap 15 Band Neutrophils % 4.0 Blood Morphology Comment Blood Urea Nitrogen 11 Calcium Level 8.6 Carbon Dioxide Level 27 Chloride Level 101 Creatinine 0.74 Differential Comment MANUAL DIFF Eosinophils # 0.0 Eosinophils % 1.0 Glucose Level 136 Hematocrit 27.0 L Hemoglobin 9.0 L Lymphocytes # 4.2 H Lymphocytes % 88.0 H Magnesium Level 2.2 Mean Corpuscular Hemoglobin 30.0 Mean Corpuscular Hemoglobin Concent 33.4 Mean Corpuscular Volume 90.0 Mean Platelet Volume 8.3 Monocytes # 0.0 L Monocytes % 1.0 Neutrophils # 0.3 L Neutrophils % 6.0 L Phosphorus Level 3.1 Platelet Count 47 L Platelet Estimate PLT APPEAR DECREASED Potassium Level 4.7 Red Blood Count 3.00 L Red Cell Distribution Width 22.6 H Sodium Level 138 White Blood Count 4.8 Test 04/14/16 12:09 Bedside Glucose 121 Medications Current Medications Insulin Glargine 23 unit 23 unit QHS SC Last administered on 04/13/16at 20:45; Admin Dose 23 UNIT; Start 04/10/16 at 21:00 Sodium Chloride (NS) 1,000 ml @ 100 mls/hr Q10H IV Last administered on at 20:29; Admin Dose 100 MLS/HR; Start 04/10/16 at 18:34 Ondansetron HCl (Zofran Inj) 4 mg Q6H PRN IV NAUSEA AND/OR VOMITING; Start 04/10/16 at 19:00 Nitroglycerin (Nitroglycerin (Sl Tab) 0.4 Mg) 1 tab Q5M PRN SL CHEST PAIN; Start 04/10/16 at 19:00 Acetaminophen (Tylenol Tab) 650 mg Q6H PRN PO PAIN LEVEL 1-3 OR FEVER Last administered on 04/11/16at 23:01; Admin Dose 650 MG; Start 04/10/16 at 19:00 Acetaminophen/ Hydrocodone Bitart ([place] (5/325)) 1 tab Q6H PRN PO PAIN LEVEL 4 -6 Last administered on 04/13/16at 06:27; Admin Dose 1 TAB; Start 04/10/16 at 19: 00 Acetaminophen/ Hydrocodone Bitart ([place] (5/325)) 2 tab Q6H PRN PO PAIN LEVEL 7 -10; Start 04/10/16 at 19:00 Morphine Sulfate (morphine) 2 mg Q4H PRN IV PAIN LEVEL 7-10 Last administered on 04/14/16at 12:36; Admin Dose 2 MG; Start 04/10/16 at 19:00 Magnesium Hydroxide (Milk Of Mag) 30 ml DAILY PRN PO CONSTIPATION Last administered on 04/13/16at 15:13; Admin Dose 30 ML; Start 04/10/16 at 19:00 Bisacodyl (Dulcolax Supp) 10 mg DAILY PRN [place] CONSTIPATION; Start 04/10/16 at 19 :00 Pantoprazole 40 mg 40 mg DAILY@06 PO Last administered on 04/14/16at 05:23; Admin Dose 40 MG; Start 04/11/16 at 06:00 Piperacillin Sod/ Tazobactam Sod (Zosyn 3.375gm/ 100 ml (Pmx)) 100 ml @ 200 mls /hr Q8 IVPB Last administered on 04/14/16at 05:23; Admin Dose 200 MLS/HR; Start 04/10/16 at 22:00 Miscellaneous Information 1 ea NOTE XX ; Start 04/10/16 at 19:00 Glucose (Glutose) 15 gm Q15M PRN PO DECREASED GLUCOSE; Start 04/10/16 at 19:00 Glucose (Glutose) 22.5 gm Q15M PRN PO DECREASED GLUCOSE; Start 04/10/16 at 19: 00 Dextrose (D50w Syringe) 25 ml Q15M PRN IV DECREASED GLUCOSE; Start 04/10/16 at 19:00 Dextrose (D50w Syringe) 50 ml Q15M PRN IV DECREASED GLUCOSE; Start 04/10/16 at 19:00 Glucagon (Glucagen) 1 mg Q15M PRN IM DECREASED GLUCOSE; Start 04/10/16 at 19:00 Glucose (Glutose) 15 gm Q15M PRN BUCCAL DECREASED GLUCOSE; Start 04/10/16 at 19 :00 Metoprolol Tartrate (Lopressor) 100 mg BID PO Last administered on 04/14/16at 08 :22; Admin Dose 100 MG; Start 04/11/16 at 09:00 Docusate Sodium (Colace) 100 mg Q12H PO Last administered on 04/14/16at 08:24; Admin Dose 100 MG; Start 04/11/16 at 19:00 Polyethylene Glycol (Miralax) 17 gm DAILY PO Last administered on 04/14/16at 08: 22; Admin Dose 17 GM; Start 04/11/16 at 13:00 Amlodipine Besylate (Norvasc) 2.5 mg DAILY PO Last administered on 04/14/16at 08 :23; Admin Dose 2.5 MG; Start 04/14/16 at 09:00 Lisinopril 5 mg 5 mg DAILY PO Last administered on 04/14/16at 08:23; Admin Dose 5 MG; Start 04/13/16 at 15:00 Vancomycin HCl/ Sodium Chloride (Vancocin/NS) 500 ml @ 125 mls/hr Q12H IVPB Last administered on 04/14/16at 12:34; Admin Dose 125 MLS/HR; Start 04/14/16 at 00:00 Assessment/Plan Chief Complaint/Hosp Course DIAGNOSTICS: MRI showed evidence of osteomyelitis at the second middle and distal phalanges. ANTIMICROBIALS: 1. Vancomycin. 2. Zosyn. PHYSICAL EXAMINATION: GENERAL: Obese, well-developed, middle-aged man who is awake, in no distress. HEENT: Head atraumatic, normocephalic. Sclerae anicteric. Buccal mucosa pink. NECK: Supple. Trachea midline. LUNGS: Chest rise symmetrical. Breath sounds clear, diminished at bases. HEART: S1, S2. ABDOMEN: Soft. Bowel tones present. EXTREMITIES: With right foot slightly edematous. ASSESSMENT: 1. Right diabetic foot ulcer with toe osteomyelitis==> podiatry follows. 2. Systemic inflammatory response syndrome with fever on admission, elevated ESR, significant thrombocytopenia and anemia. The patient is being followed by hematology team, status post CT-guided bone marrow biopsy. 3. Diabetes. 4. Hypertension. 5. Legally blind. PLAN: The patient remains stable. Covered with abx, pending JOSE J. Follow podiatry, cardiology, oncology recommendations. CHETAN Ruiz Problems: JUVENAL SANCHEZ NP Apr 14, 2016 13:12
--- NOTE | 2016-04-14 13:19 | PN ---
Date/Time of Note Date/Time of Note DATE: 04/14/16 TIME: 13:14 Assessment/Plan VTE Prophylaxis VTE Prophylaxis Intervention: SCD's Lines/Catheters IV [facility] [place] Assessment/Plan Assessment/Plan 55-year-old male with: 1. Anemia, acute on chronic with an MCV in the 90s. He is also pancytopenic, primarily thrombocytopenic. HIV negative. Appreciate Hematology eval and plan of care. BM bx pending Hb up to 9.0, post 6 units pRBC since admission. Follow up bone marrow biopsy results 2. Fever with likely acute infection of his right 1st and 2nd toe. ESR elevated. Afebrile The patient also had a rash, maculopapular. He does have a history of methicillin-resistant Staphylococcus aureus skin and soft-tissue infection years ago requiring extensive debridement of the left upper extremity. MRI foot with osteomyelitis and JOSE J negative Continue Vancomycin and Zosyn. Follow up ID recs Blood cultures NGTD and wound cultures pending. Wound care and Dr Thomas following patient. 3. Diabetes mellitus. A1c back at 7.2 ...Continue current insulin regimen, keeping off glyburide. On Tradjenta Appreciate telehealth nurse educator recommendations. Patient needs to be compliant with ADA diet, he was sending his friend by him [employer] when I walked in the room today ... 4. Cardiomegaly, EF 50%. Patient with another episode of NSVT x 8 beats this AM asymptomatic Continue Lopressor Continue telemetry monitoring. Electrolytes stable again today. S/p negative JOSE J 5. Hypertension. Continue beta blockers and Norvasc. Will hold benazepril for now. 6. Constipation: Miralax and colace scheduled and add MOM along with dulcolax prn Prophylaxis. Proton pump inhibitors for GI prophylaxis and SCDs for DVT prophylaxis. DISPOSITION: Close monitoring on Tele, f/u BM bx results, wound care and follow up further ID, hematology and Podiatry recs Subjective 24 Hr Interval Summary Free Text/Dictation Patient doing OK, remains stable. BM bx results pending JOSE J negative and confirmed osteo right 2nd toe. Non compliance with diet Exam/Review of Systems Vital Signs Vitals Vital Signs Date Time Temp Pulse Resp B/P Pulse Ox O2 Delivery O2 Flow Rate FiO2 04/14/16 12:27 81 04/14/16 12:11 98.0 18 137/78 97 04/14/16 11:53 Room Air 04/14/16 11:14 3.0 04/11/16 01:04 28 Intake and Output 04/13/16 04/13/16 04/14/16 14:59 22:59 06:59 Intake Total 1200 ml 1350 ml 2400 ml Output Total 2400 ml 950 ml Balance 1200 ml -1050 ml 1450 ml Exam Constitutional: alert, oriented, other (blind), well developed Respiratory: clear to auscultation, normal air movement Cardiovascular: nl pulses, regular rate and rhythm Gastrointestinal: non-tender, soft Musculoskeletal: nl extremities to inspection Extremities: normal pulses, other (no edema, clubbing or cyanosis) 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: ASSEMBLER BODY II-XII intact (blind ), nl mental status, nl speech, nl strength, other Results Result Diagram: 04/14/16 0820 04/14/16 0820 Results 24 hrs Laboratory Tests Test 04/13/16 18:30 04/13/16 20:35 04/14/16 07:51 04/14/16 08:20 Bedside Glucose 112 118 126 Anion Gap 15 Band Neutrophils % 4.0 Blood Morphology Comment Blood Urea Nitrogen 11 Calcium Level 8.6 Carbon Dioxide Level 27 Chloride Level 101 Creatinine 0.74 Differential Comment MANUAL DIFF Eosinophils # 0.0 Eosinophils % 1.0 Glucose Level 136 Hematocrit 27.0 L Hemoglobin 9.0 L Lymphocytes # 4.2 H Lymphocytes % 88.0 H Magnesium Level 2.2 Mean Corpuscular Hemoglobin 30.0 Mean Corpuscular Hemoglobin Concent 33.4 Mean Corpuscular Volume 90.0 Mean Platelet Volume 8.3 Monocytes # 0.0 L Monocytes % 1.0 Neutrophils # 0.3 L Neutrophils % 6.0 L Phosphorus Level 3.1 Platelet Count 47 L Platelet Estimate PLT APPEAR DECREASED Potassium Level 4.7 Red Blood Count 3.00 L Red Cell Distribution Width 22.6 H Sodium Level 138 White Blood Count 4.8 Test 04/14/16 12:09 Bedside Glucose 121 Medications Medications Current Medications Insulin Glargine 23 unit 23 unit QHS SC Last administered on 04/13/16at 20:45; Admin Dose 23 UNIT; Start 04/10/16 at 21:00 Sodium Chloride (NS) 1,000 ml @ 100 mls/hr Q10H IV Last administered on at 20:29; Admin Dose 100 MLS/HR; Start 04/10/16 at 18:34 Ondansetron HCl (Zofran Inj) 4 mg Q6H PRN IV NAUSEA AND/OR VOMITING; Start 04/10/16 at 19:00 Nitroglycerin (Nitroglycerin (Sl Tab) 0.4 Mg) 1 tab Q5M PRN SL CHEST PAIN; Start 04/10/16 at 19:00 Acetaminophen (Tylenol Tab) 650 mg Q6H PRN PO PAIN LEVEL 1-3 OR FEVER Last administered on 04/11/16at 23:01; Admin Dose 650 MG; Start 04/10/16 at 19:00 Acetaminophen/ Hydrocodone Bitart ([place] (5/325)) 1 tab Q6H PRN PO PAIN LEVEL 4 -6 Last administered on 04/13/16at 06:27; Admin Dose 1 TAB; Start 04/10/16 at 19: 00 Acetaminophen/ Hydrocodone Bitart ([place] (5/325)) 2 tab Q6H PRN PO PAIN LEVEL 7 -10; Start 04/10/16 at 19:00 Morphine Sulfate (morphine) 2 mg Q4H PRN IV PAIN LEVEL 7-10 Last administered on 04/14/16at 12:36; Admin Dose 2 MG; Start 04/10/16 at 19:00 Magnesium Hydroxide (Milk Of Mag) 30 ml DAILY PRN PO CONSTIPATION Last administered on 04/13/16at 15:13; Admin Dose 30 ML; Start 04/10/16 at 19:00 Bisacodyl (Dulcolax Supp) 10 mg DAILY PRN [place] CONSTIPATION; Start 04/10/16 at 19 :00 Pantoprazole 40 mg 40 mg DAILY@06 PO Last administered on 04/14/16at 05:23; Admin Dose 40 MG; Start 04/11/16 at 06:00 Piperacillin Sod/ Tazobactam Sod (Zosyn 3.375gm/ 100 ml (Pmx)) 100 ml @ 200 mls /hr Q8 IVPB Last administered on 04/14/16at 05:23; Admin Dose 200 MLS/HR; Start 04/10/16 at 22:00 Miscellaneous Information 1 ea NOTE XX ; Start 04/10/16 at 19:00 Glucose (Glutose) 15 gm Q15M PRN PO DECREASED GLUCOSE; Start 04/10/16 at 19:00 Glucose (Glutose) 22.5 gm Q15M PRN PO DECREASED GLUCOSE; Start 04/10/16 at 19: 00 Dextrose (D50w Syringe) 25 ml Q15M PRN IV DECREASED GLUCOSE; Start 04/10/16 at 19:00 Dextrose (D50w Syringe) 50 ml Q15M PRN IV DECREASED GLUCOSE; Start 04/10/16 at 19:00 Glucagon (Glucagen) 1 mg Q15M PRN IM DECREASED GLUCOSE; Start 04/10/16 at 19:00 Glucose (Glutose) 15 gm Q15M PRN BUCCAL DECREASED GLUCOSE; Start 04/10/16 at 19 :00 Metoprolol Tartrate (Lopressor) 100 mg BID PO Last administered on 04/14/16at 08 :22; Admin Dose 100 MG; Start 04/11/16 at 09:00 Docusate Sodium (Colace) 100 mg Q12H PO Last administered on 04/14/16at 08:24; Admin Dose 100 MG; Start 04/11/16 at 19:00 Polyethylene Glycol (Miralax) 17 gm DAILY PO Last administered on 04/14/16at 08: 22; Admin Dose 17 GM; Start 04/11/16 at 13:00 Amlodipine Besylate (Norvasc) 2.5 mg DAILY PO Last administered on 04/14/16 08 :23; Admin Dose 2.5 MG; Start 04/14/16 at 09:00 Lisinopril 5 mg 5 mg DAILY PO Last administered on 04/14/16 08:23; Admin Dose 5 MG; Start 04/13/16 at 15:00 Vancomycin HCl/ Sodium Chloride (Vancocin/NS) 500 ml @ 125 mls/hr Q12H IVPB Last administered on 04/14/16at 12:34; Admin Dose 125 MLS/HR; Start 04/14/16 at 00:00 Procedures Procedures PROCEDURE: MRI OF THE RIGHT FOOT. CLINICAL INDICATION: Cellulitis. Clinical concern is for osteomyelitis. TECHNIQUE: Multiple MR pulse sequences in multiple planes were obtained. Images were interpreted on the high-resolution PACS system.. COMPARISON: None available. Correlation with radiographs from 04/10/2016 FINDINGS: There is abnormal bone marrow edema is seen at the second middle and distal phalanges best seen on the sagittal sequence image 16 with infiltration of the bone bone marrow signal consistent with osteomyelitis, if there is an ulcer in this region. No additional foci of osteomyelitis are identified. There is mild to moderate first MTP joint arthrosis with partial cartilage loss over the metatarsal head and sesamoid margins. A small effusion is seen at the first MTP joint and the capsular structures are intact. There is moderate arthrosis noted at the second through fourth tarsometatarsal joint with fragmentation dorsally at the second metatarsal, possibly early neuropathic arthropathy. There is a mild amount of edema dorsum in the subcutaneous soft tissues. No evidence for a drainable fluid collection. There is moderate to severe fatty atrophy of the plantar musculature and edema, likely from denervation effect or diabetic microangiopathy. An up to 2 mm interdigital neuroma is seen at the second webspace. IMPRESSION: 1. Evidence of osteomyelitis at the second middle and distal phalanges. 2. Moderate subcutaneous edema over the dorsum of the forefoot and second ray, correlating with the patient's history of cellulitis. 3. No evidence for a drainable fluid collection at this time. 4. Moderate arthrosis at the tarsometatarsal joints with dorsal productive change and possible fragmentation of the second metatarsal, either degenerative in nature or from early neuropathic arthropathy. RPTAT: RR .Javad Jones MD, Date Time Electronically viewed and signed by .Javad Jones MD, on 04/14/2016 07:30 LAUREL ANDERSON Apr 14, 2016 13:19
[2016-04-14] MEDS ORDERED: ZOLPIDEM 5 MG TAB PO PRN (13:30)
--- NOTE | 2016-04-14 17:44 | CARRPT ---
DATE OF PROCEDURE: 04/14/2016 PROCEDURE PERFORMED: Transesophageal echocardiogram. HISTORY: This is a 55-year-old male with pancytopenia, possible sepsis. Transesophageal echocardiogram was requested to rule out endocarditis. DESCRIPTION OF PROCEDURE: Patient was brought to the laboratory secretary holding area after informed consent. The patient was anesthetized with anesthesia present, patient was intubated with JOSE J probe. Images were obtained. Contrast bubble study was performed. JOSE J probe was removed. There were no immediate complications. FINDINGS: 1. Left ventricular systolic function appears normal. 2. Right ventricular function appears normal. Left atrium appears upper limits of normal in size with no evidence of thrombus. 3. Mitral valve appears mildly thickened. There is mild regurgitation seen. The tricuspid valve is grossly normal with mild regurgitation. 4. Aortic valve is trileaflet and thickened with trace regurgitation. 5. Pulmonic valve is grossly normal with trace regurgitation. 6. Interatrial septum was intact. There is no shunting seen with color flow and contrast bubble study demonstrated no shunting. 7. Left atrial appendage was visualized with spiculated muscle, but no thrombus seen. 8. Descending aorta with mild atheroma . DIAGNOSES 1. Mild mitral and tricuspid valve regurgitation. 2. No intracardiac vegetations or thrombus seen. 3. Normal left ventricular function. COMPLICATIONS: None. ESTIMATED BLOOD LOSS: None. RECOMMENDATIONS: As per primary team. Dictated By: TOM GARCIA/JOSE Conf#: [id number] DID#: [id number] MTDD
--- NOTE | 2016-04-14 17:54 | CONS ---
Date/Time of Note Date/Time of Note DATE: 04/14/16 TIME: 17:43 Assessment/Plan Assessment/Plan Chief Complaint/Hosp Course 55-year-old gentleman with multiple medical problems including insulin dependant DM (not compliant), 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 He also reported easy bruising but not bleeding. Initial labs also revealed pancytopenia with a Hg 6.7 and platelets in 30's. Pt has required a blood transfusion in the past but does not know why he is anemic or thrombocytopenic. On this admission pt was transfused 2 units of PRBCs with only minimal improvement in the Hg. He is not currently bleeding. Peripheral smear shows no evidence of schistocytes or microangiopathic hemolytic anemia. 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 Dr. Contreras called me with these prelim findings , patient has not yet been informed of findings. Patient alma delia stay in house for treatment with chemotherapy. -f/u haptoglobin although hemolysis unlikely with normal LDH and peripheral smear without schistocytes. -f/u EPO level to see if patient would benefit form procrit. -f/u blood cultures as pt appears to have a disseminated infection which may be the cause of this severe anemia. cultures are thus far negative -Transesophageal echocardiogram requested to rule out endocarditis without any evidence of vegetations. MR of the foot with evidence of osteomyelitis, which is likely infectious source. Problems: Consultation Date/Type/Reason Admit Date/Time Apr 10, 2016 at 16:55 Initial Consult Date 04/11/16 Type of Consultation: Hematology/Oncology Referring Provider: LAUREL ANDERSON 24 HR Interval Summary Free Text/Dictation No changes, no complaints. Exam/Review of Systems Vital Signs Vitals Vital Signs Date Time Temp Pulse Resp B/P Pulse Ox O2 Delivery O2 Flow Rate FiO2 04/14/16 16:12 81 04/14/16 15:58 98.3 17 146/86 95 04/14/16 11:53 Room Air 04/14/16 11:14 3.0 04/11/16 01:04 28 Intake and Output 12/12/2004/13/16 04/14/16 15:00 23:00 07:00 Intake Total 1200 ml 1350 ml 2400 ml Output Total 2400 ml 950 ml Balance 1200 ml -1050 ml 1450 ml Exam Constitutional: alert, frail, oriented Psych: anxiety, no complaints Head: other (bilateral blindness) ENMT: nl external ears & nose Neck: supple Respiratory: clear to auscultation Cardiovascular: regular rate and rhythm Gastrointestinal: non-tender, soft Musculoskeletal: nl extremities to inspection, other (toe osteomyelitis) 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: nl strength Results Result Diagram: 04/14/1681904/14/16819 Results 24 hrs Laboratory Tests Test 04/13/16 18:30 04/13/16 20:35 04/14/16 07:51 04/14/16 08:20 Bedside Glucose 112 118 126 Anion Gap 15 Band Neutrophils % 4.0 Blood Morphology Comment Blood Urea Nitrogen 11 Calcium Level 8.6 Carbon Dioxide Level 27 Chloride Level 101 Creatinine 0.74 Differential Comment MANUAL DIFF Eosinophils # 0.0 Eosinophils % 1.0 Glucose Level 136 Hematocrit 27.0 L Hemoglobin 9.0 L Lymphocytes # 4.2 H Lymphocytes % 88.0 H Magnesium Level 2.2 Mean Corpuscular Hemoglobin 30.0 Mean Corpuscular Hemoglobin Concent 33.4 Mean Corpuscular Volume 90.0 Mean Platelet Volume 8.3 Monocytes # 0.0 L Monocytes % 1.0 Neutrophils # 0.3 L Neutrophils % 6.0 L Phosphorus Level 3.1 Platelet Count 47 L Platelet Estimate PLT APPEAR DECREASED Potassium Level 4.7 Red Blood Count 3.00 L Red Cell Distribution Width 22.6 H Sodium Level 138 White Blood Count 4.8 Test 04/14/16 12:09 04/14/16 16:53 Bedside Glucose 121 135 Medications Medications Current Medications Insulin Glargine 23 unit 23 unit QHS SC Last administered on 04/13/16at 20:45; Admin Dose 23 UNIT; Start 04/10/16 at 21:00 Sodium Chloride (NS) 1,000 ml @ 100 mls/hr Q10H IV Last administered on at 20:29; Admin Dose 100 MLS/HR; Start 04/10/16 at 18:34 Ondansetron HCl (Zofran Inj) 4 mg Q6H PRN IV NAUSEA AND/OR VOMITING; Start 04/10/16 at 19:00 Nitroglycerin (Nitroglycerin (Sl Tab) 0.4 Mg) 1 tab Q5M PRN SL CHEST PAIN; Start 04/10/16 at 19:00 Acetaminophen (Tylenol Tab) 650 mg Q6H PRN PO PAIN LEVEL 1-3 OR FEVER Last administered on 04/11/16at 23:01; Admin Dose 650 MG; Start 04/10/16 at 19:00 Acetaminophen/ Hydrocodone Bitart ([place] (5/325)) 1 tab Q6H PRN PO PAIN LEVEL 4 -6 Last administered on 04/13/16at 06:27; Admin Dose 1 TAB; Start 04/10/16 at 19: 00 Acetaminophen/ Hydrocodone Bitart ([place] (5/325)) 2 tab Q6H PRN PO PAIN LEVEL 7 -10; Start 04/10/16 at 19:00 Morphine Sulfate (morphine) 2 mg Q4H PRN IV PAIN LEVEL 7-10 Last administered on 04/14/16at 16:32; Admin Dose 2 MG; Start 04/10/16 at 19:00 Magnesium Hydroxide (Milk Of Mag) 30 ml DAILY PRN PO CONSTIPATION Last administered on 04/13/16at 15:13; Admin Dose 30 ML; Start 04/10/16 at 19:00 Bisacodyl (Dulcolax Supp) [address] CONSTIPATION; Start 04/10/16 at 19 :00 Pantoprazole 40 mg 40 mg DAILY@06 PO Last administered on 04/14/16at 05:23; Admin Dose 40 MG; Start 04/11/16 at 06:00 Piperacillin Sod/ Tazobactam Sod (Zosyn 3.375gm/ 100 ml (Pmx)) 100 ml @ 200 mls /hr Q8 IVPB Last administered on 04/14/16at 14:46; Admin Dose 200 MLS/HR; Start 04/10/16 at 22:00 Miscellaneous Information 1 ea NOTE XX ; Start 04/10/16 at 19:00 Glucose (Glutose) 15 gm Q15M PRN PO DECREASED GLUCOSE; Start 04/10/16 at 19:00 Glucose (Glutose) 22.5 gm Q15M PRN PO DECREASED GLUCOSE; Start 04/10/16 at 19: 00 Dextrose (D50w Syringe) 25 ml Q15M PRN IV DECREASED GLUCOSE; Start 04/10/16 at 19:00 Dextrose (D50w Syringe) 50 ml Q15M PRN IV DECREASED GLUCOSE; Start 04/10/16 at 19:00 Glucagon (Glucagen) 1 mg Q15M PRN IM DECREASED GLUCOSE; Start 04/10/16 at 19:00 Glucose (Glutose) 15 gm Q15M PRN BUCCAL DECREASED GLUCOSE; Start 04/10/16 at 19 :00 Metoprolol Tartrate (Lopressor) 100 mg BID PO Last administered on 04/14/16at 08 :22; Admin Dose 100 MG; Start 04/11/16 at 09:00 Docusate Sodium (Colace) 100 mg Q12H PO Last administered on 04/14/16 08:24; Admin Dose 100 MG; Start 04/11/16 at 19:00 Polyethylene Glycol (Miralax) 17 gm DAILY PO Last administered on 04/14/16 08: 22; Admin Dose 17 GM; Start 04/11/16 at 13:00 Amlodipine Besylate (Norvasc) 2.5 mg DAILY PO Last administered on 04/14/16at 08 :23; Admin Dose 2.5 MG; Start 04/14/16 at 09:00 Lisinopril 5 mg 5 mg DAILY PO Last administered on 04/14/16 08:23; Admin Dose 5 MG; Start 04/13/16 at 15:00 Vancomycin HCl/ Sodium Chloride (Vancocin/NS) 500 ml @ 125 mls/hr Q12H IVPB Last administered on 04/14/16at 12:34; Admin Dose 125 MLS/HR; Start 04/14/16 at 00:00 Miscellaneous Information (*Rx Drug Level Order Reminder*) 1 ONCE ONCE XX ; Start 04/15/16 at 11:00; Stop 04/15/16 at 11:01 JC ERNST MD Apr 14, 2016 17:53
[2016-04-14] MEDS: INSULIN GLARGINE [LANtus] 3 ML PEN SC SCH (20:57)
[2016-04-14] MEDS: HYDROCODONE/APAP (5/325) TAB PO PRN (23:25)
[2016-04-15] VITALS (11 sets, daily range): BP systolic 129–163; BP diastolic 70–98; PULSE 77–95; RESP 15–18
[2016-04-15] MEDS: morphine 2 MG INJ IV PRN ×6 (00:33→22:49)
[2016-04-15] MEDS: VANCOMYCIN 1.75 GM in NS 500 ML IVPB SCH ×2 (00:34→13:08)
[2016-04-15] MEDS: SOD CHLORIDE 0.9% 1,000 ML IV SCH (00:45)
[2016-04-15] MEDS: PANTOPRAZOLE (EC) 40 MG TAB PO SCH (05:37)
[2016-04-15] MEDS: PIPER-TAZO 3.375 GM IV (PMX) 100 ML IVPB SCH (05:38)
[2016-04-15] MEDS: DOCUSATE SODIUM 100 MG CAP PO SCH ×2 (06:44→20:40)
[2016-04-15 07:08] LABS: HEMATOCRIT 27.9 % (42.0-52.0); HEMOGLOBIN 9.3 g/dl (14.0-18.0); MEAN CORPUSCULAR HEMOGLOBIN 30.2 pg (29.0-33.0); MEAN CORPUSCULAR HGB CONC 33.3 g/dl (32.0-37.0); MEAN CORPUSCULAR VOLUME 90.6 fl (82.0-101.0); MEAN PLATELET VOLUME 8.8 fl (7.4-10.4); PLATELET COUNT 41 10^3/UL (140-440); RED BLOOD COUNT 3.08 10^6/ul (4.70-6.10); UNCORRECTED WBC 5.3 10^3/ul (4.8-10.8); WHITE BLOOD COUNT 5.3 10^3/ul (4.8-10.8)
[2016-04-15 07:17] LABS: CONDITION 1; LH ANALYZER COMMENTS 1
[2016-04-15 07:43] LABS: MAGNESIUM 2.2 mg/dl (1.7-2.5); PHOSPHORUS 3.3 mg/dl (2.5-4.9)
[2016-04-15 07:45] LABS: POTASSIUM 4.1 mmol/L (3.5-5.1)
[2016-04-15 07:47] LABS: CREATININE 0.77 mg/dl (0.61-1.24)
[2016-04-15 07:48] LABS: CALCIUM 8.6 mg/dl (8.4-10.2)
[2016-04-15] MEDS: INSULIN ASPART [NOVOLOG] 3 ML PEN SC SCH ×7 (07:55→21:00)
[2016-04-15 09:56] LABS: LYMPHOCYTES # 4.8 10^3/ul (0.8-2.9); MONOCYTE # 0.1 10^3/ul (0.3-0.9); NEUTROPHIL # 0.5 10^3/ul (1.6-7.5)
[2016-04-15 09:57] LABS: PLATELET ESTIMATE PLT APPEAR DECREASED
[2016-04-15] MEDS: AMLODIPINE 2.5 MG TAB PO SCH (09:57)
[2016-04-15] MEDS: POLYETHYLENE GLYCOL 17 GM PACKET PO SCH (09:57)
[2016-04-15] MEDS: LISINOPRIL 5 MG TAB PO SCH ×2 (09:57→20:41)
[2016-04-15] MEDS: METOPROLOL 100 MG TAB PO SCH ×2 (09:57→22:49)
--- NOTE | 2016-04-15 11:48 | PN ---
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 HIV negative. Appreciate Hematology eval and plan of care. Dr Flannery will discuss with patient need for chemo and plans to start early this week Hb up to 9.0, post 6 units pRBC since admission and remains stable @ 9.3 today. Follow up Hematology recommendations today. 2. Fever with likely acute infection of his right 1st and 2nd toe. ESR elevated. Afebrile The patient also had a rash, maculopapular. He does have a history of methicillin-resistant Staphylococcus aureus skin and soft-tissue infection years ago requiring extensive debridement of the left upper extremity. MRI foot with osteomyelitis and JOSE J negative Continue Vancomycin and Zosyn. Follow up ID recs Blood cultures NGTD and wound cultures pending. Wound care and Dr Thomas following patient. 3. Diabetes mellitus. A1c back at 7.2 ...Continue current insulin regimen, keeping off glyburide. On Tradjenta Appreciate religious educator recommendations. Patient needs to be compliant with ADA diet, he was sending his friend by him [employer] ... 4. Cardiomegaly, EF 50%. No further episodes of NSVT since yesterday Continue Lopressor Electrolytes stable again today. S/p negative JOSE J 5. Hypertension. Continue beta blockers and Norvasc and increase Lisinopril dose. 6. Constipation: Miralax and colace scheduled and add MOM along with dulcolax prn Prophylaxis. Proton pump inhibitors for GI prophylaxis and SCDs for DVT prophylaxis. DISPOSITION: Transfer to Med Surg. F/u wound care and follow up further ID, hematology and Podiatry recs Subjective 24 Hr Interval Summary Free Text/Dictation Patient remains stable but upset about meal schedule and diabetic diet .... Dx of Hairy cell Leukemia on bone marrow bx Transfer to Med Surg Exam/Review of Systems Vital Signs Vitals Vital Signs Date Time Temp Pulse Resp B/P Pulse Ox O2 Delivery O2 Flow Rate FiO2 04/15/16 11:12 98.3 85 17 160/98 93 04/15/16 00:00 Room Air 04/14/16 11:14 3.0 Intake and Output 04/14/16 04/14/16 04/15/16 15:00 23:00 07:00 Intake Total 1900 ml 1820 ml Output Total 2100 ml 2500 ml Balance -200 ml -680 ml Exam Constitutional: alert, oriented, other (blind), well developed Psych: other (upset ) Respiratory: clear to auscultation, normal air movement Cardiovascular: nl pulses, regular rate and rhythm Gastrointestinal: non-tender, soft Musculoskeletal: nl extremities to inspection Extremities: normal pulses, other (no edema, clubbing or cyanosis ) 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: IV THERAPY NURSE II-XII intact, nl mental status, nl speech, nl strength, other (Blind ) Results Result Diagram: 04/15/1612 04/15/16 0612 Results 24 hrs Laboratory Tests Test 04/14/16 12:09 04/14/16 16:53 04/14/16 20:53 04/15/16 06:12 Bedside Glucose 121 135 177 Anion Gap 15 Blood Morphology Comment Blood Urea Nitrogen 10 Calcium Level 8.6 Carbon Dioxide Level 25 Chloride Level 103 Creatinine 0.77 Glucose Level 81 # Hematocrit 27.9 L Hemoglobin 9.3 L Lymphocytes # 4.8 H Lymphocytes % 90.0 H Magnesium Level 2.2 Mean Corpuscular Hemoglobin 30.2 Mean Corpuscular Hemoglobin Concent 33.3 Mean Corpuscular Volume 90.6 Mean Platelet Volume 8.8 Monocytes # 0.1 L Monocytes % 1.0 Neutrophils # 0.5 L Neutrophils % 9.0 L Nucleated Red Blood Cells % 7.0 H Phosphorus Level 3.3 Platelet Count 41 L Platelet Estimate PLT APPEAR DECREASED Potassium Level 4.1 Red Blood Count 3.08 L Red Cell Distribution Width 23.0 H Sodium Level 139 White Blood Count 5.3 Test 04/15/16 08:09 04/15/16 11:33 Bedside Glucose 74 115 Medications Medications Current Medications Insulin Glargine 23 unit 23 unit QHS SC Last administered on 04/14/16at 20:57; Admin Dose 23 UNIT; Start 04/10/16 at 21:00 Sodium Chloride (NS) 1,000 ml @ 100 mls/hr Q10H IV Last administered on at 00:45; Admin Dose 100 MLS/HR; Start 04/10/16 at 18:34 Ondansetron HCl (Zofran Inj) 4 mg Q6H PRN IV NAUSEA AND/OR VOMITING; Start 04/10/16 at 19:00 Nitroglycerin (Nitroglycerin (Sl Tab) 0.4 Mg) 1 tab Q5M PRN SL CHEST PAIN; Start 04/10/16 at 19:00 Acetaminophen (Tylenol Tab) 650 mg Q6H PRN PO PAIN LEVEL 1-3 OR FEVER Last administered on 04/11/16at 23:01; Admin Dose 650 MG; Start 04/10/16 at 19:00 Acetaminophen/ Hydrocodone Bitart ([place] (5/325)) 1 tab Q6H PRN PO PAIN LEVEL 4 -6 Last administered on 04/14/16at 23:25; Admin Dose 1 TAB; Start 04/10/16 at 19: 00 Acetaminophen/ Hydrocodone Bitart ([place] (5/325)) 2 tab Q6H PRN PO PAIN LEVEL 7 -10; Start 04/10/16 at 19:00 Morphine Sulfate (morphine) 2 mg Q4H PRN IV PAIN LEVEL 7-10 Last administered on 04/15/16at 08:50; Admin Dose 2 MG; Start 04/10/16 at 19:00 Magnesium Hydroxide (Milk Of Mag) 30 ml DAILY PRN PO CONSTIPATION Last administered on 04/13/16at 15:13; Admin Dose 30 ML; Start 04/10/16 at 19:00 Bisacodyl (Dulcolax Supp) 10 mg DAILY PRN [place] CONSTIPATION; Start 04/10/16 at 19 :00 Pantoprazole 40 mg 40 mg DAILY@06 PO Last administered on 04/15/16at 05:37; Admin Dose 40 MG; Start 04/11/16 at 06:00 Piperacillin Sod/ Tazobactam Sod (Zosyn 3.375gm/ 100 ml (Pmx)) 100 ml @ 200 mls /hr Q8 IVPB Last administered on 04/15/16at 05:38; Admin Dose 200 MLS/HR; Start 04/10/16 at 22:00 Miscellaneous Information 1 ea NOTE XX ; Start 04/10/16 at 19:00 Glucose (Glutose) 15 gm Q15M PRN PO DECREASED GLUCOSE; Start 04/10/16 at 19:00 Glucose (Glutose) 22.5 gm Q15M PRN PO DECREASED GLUCOSE; Start 04/10/16 at 19: 00 Dextrose (D50w Syringe) 25 ml Q15M PRN IV DECREASED GLUCOSE; Start 04/10/16 at 19:00 Dextrose (D50w Syringe) 50 ml Q15M PRN IV DECREASED GLUCOSE; Start 04/10/16 at 19:00 Glucagon (Glucagen) 1 mg Q15M PRN IM DECREASED GLUCOSE; Start 04/10/16 at 19:00 Glucose (Glutose) 15 gm Q15M PRN BUCCAL DECREASED GLUCOSE; Start 04/10/16 at 19 :00 Metoprolol Tartrate (Lopressor) 100 mg BID PO Last administered on 04/15/16at 09:57; Admin Dose 100 MG; Start 04/11/16 at 09:00 Docusate Sodium (Colace) 100 mg Q12H PO Last administered on 04/15/16at 06:44; Admin Dose 100 MG; Start 04/11/16 at 19:00 Polyethylene Glycol (Miralax) 17 gm DAILY PO Last administered on 04/15/16at 09 :57; Admin Dose 17 GM; Start 04/11/16 at 13:00 Amlodipine Besylate (Norvasc) 2.5 mg DAILY PO Last administered on 04/15/16at 09:57; Admin Dose 2.5 MG; Start 04/14/16 at 09:00 Lisinopril 5 mg 5 mg DAILY PO Last administered on 04/15/16 09:57; Admin Dose 5 MG; Start 04/13/16 at 15:00 Vancomycin HCl/ Sodium Chloride (Vancocin/NS) 500 ml @ 125 mls/hr Q12H IVPB Last administered on 04/15/16at 00:34; Admin Dose 125 MLS/HR; Start 04/14/16 at 00:00 LAUREL ANDERSON Apr 15, 2016 11:48
--- NOTE | 2016-04-15 13:54 | CONS ---
Date/Time of Note Date/Time of Note DATE: 04/15/16 TIME: 13:51 Assessment/Plan Assessment/Plan Chief Complaint/Hosp Course No acute changes, sleeping, no fevers, nad DIAGNOSTICS: MRI showed evidence of osteomyelitis at the second middle and distal phalanges. ANTIMICROBIALS: 1. Vancomycin. 2. Zosyn. PHYSICAL EXAMINATION: GENERAL: Obese, well-developed, middle-aged man who is awake, in no distress. HEENT: Head atraumatic, normocephalic. Sclerae anicteric. Buccal mucosa pink. NECK: Supple. Trachea midline. LUNGS: Chest rise symmetrical. Breath sounds clear, diminished at bases. HEART: S1, S2. ABDOMEN: Soft. Bowel tones present. EXTREMITIES: With right foot edema ASSESSMENT: 1. 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 2. Systemic inflammatory response syndrome with fever on admission, elevated ESR, significant thrombocytopenia and anemia. The patient is being followed by hematology team, status post CT-guided bone marrow biopsy. 3. Diabetes. 4. Hypertension. 5. Legally blind. 6. Hairy cell leukemia==> per patho report PLAN: Clinically unchanged, JOSE J revealed no vegetations, will change Zosyn to oral Levaquin, continue Vanco, f/u podiatry rec-s. Chemo per oncology rec-s [facility] staff Problems: Consultation Date/Type/Reason Admit Date/Time Apr 10, 2016 at 16:55 Initial Consult Date 04/11/16 Type of Consultation: ID Referring Provider: LAUREL ANDERSON 24 HR Interval Summary Constitutional: no complaints Exam/Review of Systems Vital Signs Vitals Vital Signs Date Time Temp Pulse Resp B/P Pulse Ox O2 Delivery O2 Flow Rate FiO2 04/15/16 12:27 80 04/15/16 11:12 98.3 17 160/98 93 04/15/16 00:00 Room Air 04/14/16 11:14 3.0 Intake and Output 04/14/16 04/14/16 04/15/16 15:00 23:00 07:00 Intake Total 1900 ml 1820 ml Output Total 2100 ml 2500 ml Balance -200 ml -680 ml Results Result Diagram: 04/15/16 0612 04/15/16 0612 Results 24 hrs Laboratory Tests Test 04/14/16 16:53 04/14/16 20:53 04/15/16 06:12 04/15/16 08:09 Bedside Glucose 135 177 74 Anion Gap 15 Blood Morphology Comment Blood Urea Nitrogen 10 Calcium Level 8.6 Carbon Dioxide Level 25 Chloride Level 103 Creatinine 0.77 Glucose Level 81 # Hematocrit 27.9 L Hemoglobin 9.3 L Lymphocytes # 4.8 H Lymphocytes % 90.0 H Magnesium Level 2.2 Mean Corpuscular Hemoglobin 30.2 Mean Corpuscular Hemoglobin Concent 33.3 Mean Corpuscular Volume 90.6 Mean Platelet Volume 8.8 Monocytes # 0.1 L Monocytes % 1.0 Neutrophils # 0.5 L Neutrophils % 9.0 L Nucleated Red Blood Cells % 7.0 H Phosphorus Level 3.3 Platelet Count 41 L Platelet Estimate PLT APPEAR DECREASED Potassium Level 4.1 Red Blood Count 3.08 L Red Cell Distribution Width 23.0 H Sodium Level 139 White Blood Count 5.3 Test 04/15/16 11:00 04/15/16 11:33 Vancomycin Level Trough 13.7 Bedside Glucose 115 Medications Medications Current Medications Insulin Glargine (Lantus) 23 unit QHS SC Last administered on 04/14/16at 20:57; Admin Dose 23 UNIT; Start 04/10/16 at 21:00 Ondansetron HCl (Zofran Inj) 4 mg Q6H PRN IV NAUSEA AND/OR VOMITING; Start 04/10/16 at 19:00 Nitroglycerin (Nitroglycerin (Sl Tab) 0.4 Mg) 1 tab Q5M PRN SL CHEST PAIN; Start 04/10/16 at 19:00 Acetaminophen (Tylenol Tab) 650 mg Q6H PRN PO PAIN LEVEL 1-3 OR FEVER Last administered on 04/11/16at 23:01; Admin Dose 650 MG; Start 04/10/16 at 19:00 Acetaminophen/ Hydrocodone Bitart ([place] (5/325)) 1 tab Q6H PRN PO PAIN LEVEL 4 -6 Last administered on 04/14/16at 23:25; Admin Dose 1 TAB; Start 04/10/16 at 19: 00 Acetaminophen/ Hydrocodone Bitart ([place] (5/325)) 2 tab Q6H PRN PO PAIN LEVEL 7 -10; Start 04/10/16 at 19:00 Morphine Sulfate (morphine) 2 mg Q4H PRN IV PAIN LEVEL 7-10 Last administered on 04/15/16at 13:22; Admin Dose 2 MG; Start 04/10/16 at 19:00 Magnesium Hydroxide (Milk Of Mag) 30 ml DAILY PRN PO CONSTIPATION Last administered on 04/13/16at 15:13; Admin Dose 30 ML; Start 04/10/16 at 19:00 Bisacodyl (Dulcolax Supp) 10 mg DAILY PRN [place] CONSTIPATION; Start 04/10/16 at 19 :00 Pantoprazole 40 mg 40 mg DAILY@06 PO Last administered on 04/15/16at 05:37; Admin Dose 40 MG; Start 04/11/16 at 06:00 Piperacillin Sod/ Tazobactam Sod (Zosyn 3.375gm/ 100 ml (Pmx)) 100 ml @ 200 mls /hr Q8 IVPB Last administered on 04/15/16at 05:38; Admin Dose 200 MLS/HR; Start 04/10/16 at 22:00 Miscellaneous Information 1 ea NOTE XX ; Start 04/10/16 at 19:00 Glucose (Glutose) 15 gm Q15M PRN PO DECREASED GLUCOSE; Start 04/10/16 at 19:00 Glucose (Glutose) 22.5 gm Q15M PRN PO DECREASED GLUCOSE; Start 04/10/16 at 19: 00 Dextrose (D50w Syringe) 25 ml Q15M PRN IV DECREASED GLUCOSE; Start 04/10/16 at 19:00 Dextrose (D50w Syringe) 50 ml Q15M PRN IV DECREASED GLUCOSE; Start 04/10/16 at 19:00 Glucagon (Glucagen) 1 mg Q15M PRN IM DECREASED GLUCOSE; Start 04/10/16 at 19:00 Glucose (Glutose) 15 gm Q15M PRN BUCCAL DECREASED GLUCOSE; Start 04/10/16 at 19 :00 Metoprolol Tartrate (Lopressor) 100 mg BID PO Last administered on 04/15/16at 09:57; Admin Dose 100 MG; Start 04/11/16 at 09:00 Docusate Sodium (Colace) 100 mg Q12H PO Last administered on 04/15/16at 06:44; Admin Dose 100 MG; Start 04/11/16 at 19:00 Polyethylene Glycol (Miralax) 17 gm DAILY PO Last administered on 04/15/16at 09 :57; Admin Dose 17 GM; Start 04/11/16 at 13:00 Amlodipine Besylate 2.5 mg 2.5 mg DAILY PO Last administered on 04/15/16at 09: 57; Admin Dose 2.5 MG; Start 04/14/16 at 09:00 Vancomycin HCl/ Sodium Chloride (Vancocin/NS) 500 ml @ 125 mls/hr Q12H IVPB Last administered on 04/15/16at 13:08; Admin Dose 125 MLS/HR; Start 04/14/16 at 00:00; Stop 04/15/16 at 18:00 Lisinopril 5 mg 5 mg BID PO ; Start 04/15/16 at 21:00 Vancomycin HCl/ Sodium Chloride (Vancocin/NS) 500 ml @ 125 mls/hr Q24H IVPB ; Start 04/16/16 at 00:00 JUVENAL SANCHEZ NP Apr 15, 2016 13:54
[2016-04-15] MEDS: LEVOFLOXACIN 500 MG TAB PO SCH (14:42)
--- NOTE | 2016-04-15 15:15 | CONS ---
Date/Time of Note Date/Time of Note DATE: 04/15/16 TIME: 15:10 Assessment/Plan Assessment/Plan Chief Complaint/Hosp Course 55-year-old gentleman with multiple medical problems including insulin dependant DM (not compliant), 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 He also reported easy bruising but not bleeding. Initial labs also revealed pancytopenia with a Hg 6.7 and platelets in 30's. Pt has since been diagnosed with HAIRY CELL LEUKEMIA Problems: Additional Assessment/Plan -Final results of bone marrow biopsy show evidence of hairy cell leukemia, pending immunostains to confirm. Patient is now aware of these findings. Patient will stay in house for treatment with chemotherapy which is cladribine 0.14mg/kg/day x 7 days. will start chemotherapy even while patient is on antibiotics. 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 we have to treat the underlying leukemia to help him fight his multiple chronic infections -f/u haptoglobin although hemolysis unlikely with normal LDH and peripheral smear without schistocytes. -f/u blood cultures as pt appears to have a disseminated infection which may be the cause of this severe anemia. cultures are thus far negative -Transesophageal echocardiogram requested to rule out endocarditis without any evidence of vegetations. MR of the foot with evidence of osteomyelitis, which is likely infectious source. ID recs apprecited Approximately 40 min were spent at patient's bedside and in coordination of his care Consultation Date/Type/Reason Admit Date/Time Apr 10, 2016 at 16:55 Initial Consult Date 04/11/16 Type of Consultation: hematology Reason for Consultation hairy cell leukemia Referring Provider: LAUREL ANDERSON 24 HR Interval Summary Free Text/Dictation pt was told this am that he has hairy cell leukemia. ready and willing to try chemotherapy Exam/Review of Systems Vital Signs Vitals Vital Signs Date Time Temp Pulse Resp B/P Pulse Ox O2 Delivery O2 Flow Rate FiO2 04/15/16 12:27 80 04/15/16 11:12 98.3 17 160/98 93 04/15/16 00:00 Room Air 04/14/16 11:14 3.0 Intake and Output 04/14/16 04/14/16 04/15/16 15:00 23:00 07:00 Intake Total 1900 ml 1820 ml Output Total 2100 ml 2500 ml Balance -200 ml -680 ml Exam Constitutional: alert, oriented Psych: no complaints Head: normocephalic Eyes: other (blind) ENMT: nl external ears & nose Neck: non-tender, supple Respiratory: clear to auscultation, normal air movement Cardiovascular: regular rate and rhythm Gastrointestinal: soft Musculoskeletal: nl extremities to inspection, nl gait and stance Extremities: normal pulses Results Result Diagram: 04/15/1661104/15/16611 Results 24 hrs Laboratory Tests Test 04/14/16 16:53 04/14/16 20:53 04/15/16 06:12 04/15/16 08:09 Bedside Glucose 135 177 74 Anion Gap 15 Blood Morphology Comment Blood Urea Nitrogen 10 Calcium Level 8.6 Carbon Dioxide Level 25 Chloride Level 103 Creatinine 0.77 Glucose Level 81 # Hematocrit 27.9 L Hemoglobin 9.3 L Lymphocytes # 4.8 H Lymphocytes % 90.0 H Magnesium Level 2.2 Mean Corpuscular Hemoglobin 30.2 Mean Corpuscular Hemoglobin Concent 33.3 Mean Corpuscular Volume 90.6 Mean Platelet Volume 8.8 Monocytes # 0.1 L Monocytes % 1.0 Neutrophils # 0.5 L Neutrophils % 9.0 L Nucleated Red Blood Cells % 7.0 H Phosphorus Level 3.3 Platelet Count 41 L Platelet Estimate PLT APPEAR DECREASED Potassium Level 4.1 Red Blood Count 3.08 L Red Cell Distribution Width 23.0 H Sodium Level 139 White Blood Count 5.3 Test 04/15/16 11:00 04/15/16 11:33 Vancomycin Level Trough 13.7 Bedside Glucose 115 Medications Medications Current Medications Insulin Glargine (Lantus) 23 unit QHS SC Last administered on 04/14/16at 20:57; Admin Dose 23 UNIT; Start 04/10/16 at 21:00 Ondansetron HCl (Zofran Inj) 4 mg Q6H PRN IV NAUSEA AND/OR VOMITING; Start 04/10/16 at 19:00 Nitroglycerin (Nitroglycerin (Sl Tab) 0.4 Mg) 1 tab Q5M PRN SL CHEST PAIN; Start 04/10/16 at 19:00 Acetaminophen (Tylenol Tab) 650 mg Q6H PRN PO PAIN LEVEL 1-3 OR FEVER Last administered on 04/11/16at 23:01; Admin Dose 650 MG; Start 04/10/16 at 19:00 Acetaminophen/ Hydrocodone Bitart ([place] (5/325)) 1 tab Q6H PRN PO PAIN LEVEL 4 -6 Last administered on 04/14/16at 23:25; Admin Dose 1 TAB; Start 04/10/16 at 19: 00 Acetaminophen/ Hydrocodone Bitart ([place] (5/325)) 2 tab Q6H PRN PO PAIN LEVEL 7 -10; Start 04/10/16 at 19:00 Morphine Sulfate (morphine) 2 mg Q4H PRN IV PAIN LEVEL 7-10 Last administered on 04/15/16at 13:22; Admin Dose 2 MG; Start 04/10/16 at 19:00 Magnesium Hydroxide (Milk Of Mag) 30 ml DAILY PRN PO CONSTIPATION Last administered on 04/13/16at 15:13; Admin Dose 30 ML; Start 04/10/16 at 19:00 Bisacodyl (Dulcolax Supp) 10 mg DAILY PRN [place] CONSTIPATION; Start 04/10/16 at 19 :00 Pantoprazole (Protonix Tab) 40 mg DAILY@06 PO Last administered on 04/15/16at 05:37; Admin Dose 40 MG; Start 04/11/16 at 06:00 Miscellaneous Information 1 ea NOTE XX ; Start 04/10/16 at 19:00 Glucose (Glutose) 15 gm Q15M PRN PO DECREASED GLUCOSE; Start 04/10/16 at 19:00 Glucose (Glutose) 22.5 gm Q15M PRN PO DECREASED GLUCOSE; Start 04/10/16 at 19: 00 Dextrose (D50w Syringe) 25 ml Q15M PRN IV DECREASED GLUCOSE; Start 04/10/16 at 19:00 Dextrose (D50w Syringe) 50 ml Q15M PRN IV DECREASED GLUCOSE; Start 04/10/16 at 19:00 Glucagon (Glucagen) 1 mg Q15M PRN IM DECREASED GLUCOSE; Start 04/10/16 at 19:00 Glucose (Glutose) 15 gm Q15M PRN BUCCAL DECREASED GLUCOSE; Start 04/10/16 at 19 :00 Metoprolol Tartrate (Lopressor) 100 mg BID PO Last administered on 04/15/16at 09:57; Admin Dose 100 MG; Start 04/11/16 at 09:00 Docusate Sodium (Colace) 100 mg Q12H PO Last administered on 04/15/16at 06:44; Admin Dose 100 MG; Start 04/11/16 at 19:00 Polyethylene Glycol (Miralax) 17 gm DAILY PO Last administered on 04/15/16 09 :57; Admin Dose 17 GM; Start 04/11/16 at 13:00 Amlodipine Besylate 2.5 mg 2.5 mg DAILY PO Last administered on 04/15/16 09: 57; Admin Dose 2.5 MG; Start 04/14/16 at 09:00 Vancomycin HCl/ Sodium Chloride (Vancocin/NS) 500 ml @ 125 mls/hr Q12H IVPB Last administered on 04/15/16 13:08; Admin Dose 125 MLS/HR; Start 04/14/16 at 00:00; Stop 04/15/16 at 18:00 Lisinopril 5 mg 5 mg BID PO ; Start 04/15/16 at 21:00 Vancomycin HCl/ Sodium Chloride (Vancocin/NS) 500 ml @ 125 mls/hr Q24H IVPB ; Start 04/16/16 at 00:00 Levofloxacin (Levaquin) 500 mg DAILY@06 PO Last administered on 04/15/16at 14: 42; Admin Dose 500 MG; Start 04/15/16 at 14:00 TOY DWYER M.D. Apr 15, 2016 15:15
[2016-04-15] MEDS: INSULIN GLARGINE [LANtus] 3 ML PEN SC SCH (20:43)
[2016-04-16] MEDS: VANCOMYCIN 2 GM in SOD CHLORIDE 0.9% 500 ML IVPB SCH ×2 (01:23→23:59)
[2016-04-16 05:54] LABS: ALBUMIN 3.3 g/dl (3.3-4.9); POTASSIUM 4.2 mmol/L (3.5-5.1)
[2016-04-16 05:56] LABS: CREATININE 0.69 mg/dl (0.61-1.24)
[2016-04-16 05:57] LABS: ALBUMIN/GLOBULIN RATIO 0.62; BILIRUBIN,DIRECT 0.8 mg/dl (0.00-0.20); BILIRUBIN,INDIRECT 0.7 mg/dl (0-1.1); BILIRUBIN,TOTAL 1.5 mg/dl (0.2-1.3); CALCIUM 8.2 mg/dl (8.4-10.2); HEMATOCRIT 27.9 % (42.0-52.0); HEMOGLOBIN 9.2 g/dl (14.0-18.0); MEAN CORPUSCULAR HEMOGLOBIN 30.1 pg (29.0-33.0); MEAN CORPUSCULAR HGB CONC 32.9 g/dl (32.0-37.0); MEAN CORPUSCULAR VOLUME 91.4 fl (82.0-101.0); PLATELET COUNT 42 10^3/UL (140-440); RED BLOOD COUNT 3.05 10^6/ul (4.70-6.10); TOTAL PROTEIN 8.6 g/dl (6.1-8.1); UNCORRECTED WBC 5.2 10^3/ul (4.8-10.8); WHITE BLOOD COUNT 5.2 10^3/ul (4.8-10.8)
[2016-04-16 06:02] LABS: MAGNESIUM 2.1 mg/dl (1.7-2.5); PHOSPHORUS 3.5 mg/dl (2.5-4.9)
[2016-04-16] MEDS: LEVOFLOXACIN 500 MG TAB PO SCH (06:18)
[2016-04-16] MEDS: PANTOPRAZOLE (EC) 40 MG TAB PO SCH (06:18)
[2016-04-16] MEDS: DOCUSATE SODIUM 100 MG CAP PO SCH ×2 (06:18→19:06)
[2016-04-16] MEDS: morphine 2 MG INJ IV PRN ×3 (06:21→21:08)
[2016-04-16 06:23] LABS: CONDITION 1; LH ANALYZER COMMENTS 1; MEAN PLATELET VOLUME 8.2 fl (7.4-10.4); SUSPECT 1
[2016-04-16 07:33] LABS: LYMPHOCYTES # 4.7 10^3/ul (0.8-2.9); NEUTROPHIL # 0.4 10^3/ul (1.6-7.5); PLATELET ESTIMATE PLT APPEAR DECREASED
[2016-04-16] MEDS: INSULIN ASPART [NOVOLOG] 3 ML PEN SC SCH ×7 (07:50→21:11)
[2016-04-16 08:00] VITALS: BP 150/97; PULSE 79; RESP 18
[2016-04-16] MEDS: AMLODIPINE 2.5 MG TAB PO SCH (08:22)
[2016-04-16] MEDS: LISINOPRIL 5 MG TAB PO SCH ×2 (08:22→21:06)
[2016-04-16] MEDS: HYDROCODONE/APAP (5/325) TAB PO PRN ×2 (08:22→17:42)
[2016-04-16] MEDS: METOPROLOL 100 MG TAB PO SCH ×2 (08:23→21:07)
[2016-04-16] MEDS: POLYETHYLENE GLYCOL 17 GM PACKET PO SCH (08:24)
--- NOTE | 2016-04-16 12:22 | PN ---
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 HIV negative. Appreciate Hematology eval and plan of care. Dr Flannery will discuss with patient need for chemo and plans to start early this week Post 6 units pRBC since admission and remains stable @ 9.2 today. Plans for chemo this week. 2. Fever with likely acute infection of his right 1st and 2nd toe. ESR elevated. Afebrile The patient also had a rash, maculopapular. He does have a history of methicillin-resistant Staphylococcus aureus skin and soft-tissue infection years ago requiring extensive debridement of the left upper extremity. MRI foot with osteomyelitis and JOSE J negative Continue Vancomycin and Levaquin per ID Blood cultures NGTD and wound cultures pending. Wound care and Dr Thomas following patient. 3. Diabetes mellitus. A1c back at 7.2 ...Continue current insulin regimen, keeping off glyburide. On Tradjenta Appreciate classified advertising clerk recommendations. Patient needs to be compliant with ADA diet, he was sending his friend by him [employer] ... 4. Cardiomegaly, EF 50%. No further episodes of NSVT since yesterday. Continue Lopressor/Bblock Electrolytes stable again today. S/p negative JOSE J 5. Hypertension. Continue beta blockers and Norvasc and increase Lisinopril dose. 6. Constipation: Miralax and colace scheduled and add MOM along with dulcolax prn Prophylaxis. Proton pump inhibitors for GI prophylaxis and SCDs for DVT prophylaxis. DISPOSITION: Transfer to Med Surg. F/u wound care and follow up further ID, hematology and Podiatry recs Subjective 24 Hr Interval Summary Free Text/Dictation Patient remains stable Sleeping comfortably but keep complaining on/off of abdo pain and asking for narcotics ... Afebrile and counts stable Plans for chemo this week for Hairy cell leukemia Exam/Review of Systems Vital Signs Vitals Vital Signs Date Time Temp Pulse Resp B/P Pulse Ox O2 Delivery O2 Flow Rate FiO2 04/16/16 08:00 99.0 79 18 150/97 96 Room Air 04/14/16 11:14 3.0 Intake and Output 04/15/16 04/15/16 04/16/16 15:00 23:00 07:00 Intake Total 480 ml 400 ml 1400 ml Output Total 400 ml 450 ml 1750 ml Balance 80 ml -50 ml -350 ml Exam Constitutional: alert, oriented, other (blind), well developed Respiratory: clear to auscultation, normal air movement Cardiovascular: nl pulses, regular rate and rhythm Gastrointestinal: non-tender, soft Musculoskeletal: nl extremities to inspection Extremities: normal pulses, other (no edema, clubbing or cyanosis ) 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: S[employer] DEVELOPER II-XII intact, nl mental status, nl speech, nl strength Results Result Diagram: 04/16/1642704/16/16427 Results 24 hrs Laboratory Tests Test 04/15/16 17:00 04/15/16 20:38 04/16/16 04:28 04/16/16 07:55 Bedside Glucose 139 114 130 Alanine Aminotransferase (ALT/SGPT) 40 Albumin 3.3 Albumin/Globulin Ratio 0.62 Alkaline Phosphatase 272 H Anion Gap 15 Aspartate Amino Transf (AST/SGOT) 41 Band Neutrophils % 1.0 Blood Morphology Comment Blood Urea Nitrogen 12 Calcium Level 8.2 L Carbon Dioxide Level 25 Chloride Level 99 Creatinine 0.69 Differential Comment MANUAL DIFF Direct Bilirubin 0.80 H Globulin 5.30 H Glucose Level 161 Hematocrit 27.9 L Hemoglobin 9.2 L Indirect Bilirubin 0.7 Lymphocytes # 4.7 H Lymphocytes % 91.0 H Magnesium Level 2.1 Mean Corpuscular Hemoglobin 30.1 Mean Corpuscular Hemoglobin Concent 32.9 Mean Corpuscular Volume 91.4 Mean Platelet Volume 8.2 Neutrophils # 0.4 L Neutrophils % 7.0 L Nucleated Red Blood Cells # Nucleated Red Blood Cells % 10.0 H Phosphorus Level 3.5 Platelet Count 42 L Platelet Estimate PLT APPEAR DECREASED Potassium Level 4.2 Reactive Lymphocytes % 1.0 Red Blood Count 3.05 L Red Cell Distribution Width 23.0 H Sodium Level 135 Total Bilirubin 1.5 H Total Protein 8.6 H White Blood Count 5.2 Test 04/16/16 11:24 Bedside Glucose 183 Medications Medications Current Medications Insulin Glargine (Lantus) 23 unit QHS SC Last administered on 04/15/16at 20:43 ; Admin Dose 23 UNIT; Start 04/10/16 at 21:00 Ondansetron HCl (Zofran Inj) 4 mg Q6H PRN IV NAUSEA AND/OR VOMITING; Start 04/10/16 at 19:00 Nitroglycerin (Nitroglycerin (Sl Tab) 0.4 Mg) 1 tab Q5M PRN SL CHEST PAIN; Start 04/10/16 at 19:00 Acetaminophen (Tylenol Tab) 650 mg Q6H PRN PO PAIN LEVEL 1-3 OR FEVER Last administered on 04/11/16at 23:01; Admin Dose 650 MG; Start 04/10/16 at 19:00 Acetaminophen/ Hydrocodone Bitart ([place] (5/325)) 1 tab Q6H PRN PO PAIN LEVEL 4 -6 Last administered on 04/14/16at 23:25; Admin Dose 1 TAB; Start 04/10/16 at 19: 00 Acetaminophen/ Hydrocodone Bitart ([place] (5/325)) 2 tab Q6H PRN PO PAIN LEVEL 7 -10 Last administered on 04/16/16at 08:22; Admin Dose 2 TAB; Start 04/10/16 at 19:00 Morphine Sulfate (morphine) 2 mg Q4H PRN IV PAIN LEVEL 7-10 Last administered on 04/16/16at 06:21; Admin Dose 2 MG; Start 04/10/16 at 19:00 Magnesium Hydroxide (Milk Of Mag) 30 ml DAILY PRN PO CONSTIPATION Last administered on 04/13/16at 15:13; Admin Dose 30 ML; Start 04/10/16 at 19:00 Bisacodyl (Dulcolax Supp) 10 mg DAILY PRN [place] CONSTIPATION; Start 04/10/16 at 19 :00 Pantoprazole (Protonix Tab) 40 mg DAILY@06 PO Last administered on 04/16/16at 06:18; Admin Dose 40 MG; Start 04/11/16 at 06:00 Miscellaneous Information 1 ea NOTE XX ; Start 04/10/16 at 19:00 Glucose (Glutose) 15 gm Q15M PRN PO DECREASED GLUCOSE; Start 04/10/16 at 19:00 Glucose (Glutose) 22.5 gm Q15M PRN PO DECREASED GLUCOSE; Start 04/10/16 at 19: 00 Dextrose (D50w Syringe) 25 ml Q15M PRN IV DECREASED GLUCOSE; Start 04/10/16 at 19:00 Dextrose (D50w Syringe) 50 ml Q15M PRN IV DECREASED GLUCOSE; Start 04/10/16 at 19:00 Glucagon (Glucagen) 1 mg Q15M PRN IM DECREASED GLUCOSE; Start 04/10/16 at 19:00 Glucose (Glutose) 15 gm Q15M PRN BUCCAL DECREASED GLUCOSE; Start 04/10/16 at 19 :00 Metoprolol Tartrate (Lopressor) 100 mg BID PO Last administered on 04/16/16at 08:23; Admin Dose 100 MG; Start 04/11/16 at 09:00 Docusate Sodium (Colace) 100 mg Q12H PO Last administered on 04/16/16 06:18; Admin Dose 100 MG; Start 04/11/16 at 19:00 Polyethylene Glycol (Miralax) 17 gm DAILY PO Last administered on 04/16/16 08 :24; Admin Dose 17 GM; Start 04/11/16 at 13:00 Amlodipine Besylate (Norvasc) 2.5 mg DAILY PO Last administered on 04/16/16at 08:22; Admin Dose 2.5 MG; Start 04/14/16 at 09:00 Lisinopril 5 mg 5 mg BID PO Last administered on 04/16/16at 08:22; Admin Dose 5 MG; Start 04/15/16 at 21:00 Vancomycin HCl/ Sodium Chloride (Vancocin/NS) 500 ml @ 125 mls/hr Q24H IVPB Last administered on 04/16/16at 01:23; Admin Dose 125 MLS/HR; Start 04/16/16 at 00:00 Levofloxacin (Levaquin) 500 mg DAILY@06 PO Last administered on 04/16/16at 06: 18; Admin Dose 500 MG; Start 04/15/16 at 14:00 LAUREL ANDERSON Apr 16, 2016 12:22
--- NOTE | 2016-04-16 16:53 | CONS ---
Date/Time of Note Date/Time of Note DATE: 04/16/16 TIME: 16:47 Assessment/Plan Assessment/Plan Chief Complaint/Hosp Course ID PROGRESS NOTE 24H INTERVAL SUMMARY * Morbid obese M, resting, calm, VSS, NAD * No fevers, WBC normalized * Pt is new to ca -- chart reviewed * ANTIMICROBIALS: 1. Vancomycin. 2. Zosyn. PHYSICAL EXAMINATION: GENERAL: Obese M, resting, awake, alert, VSS, NAD HEENT: Unremarkable except low vision NECK: Supple. Trachea midline. LUNGS: Chest rise symmetrical, without dyspnea on observation ABDOMEN: Soft EXTREMITIES: With right foot edema ID ASSESSMENT: 1. Right diabetic foot ulcer with questionable toe osteomyelitis=> podiatry on case. * MRI showed evidence of osteomyelitis at the second middle and distal phalanges. 2. Systemic inflammatory response syndrome with fever on admission, elevated ESR, significant thrombocytopenia and anemia. * JOSE J revealed no vegetations 3. Diabetes. 4. Hypertension. 5. Legally blind. 6. Hairy cell leukemia=> s/p CT Guided BM-Bx per patho report CURRENT ABX: Vanco IV + Levaquin PO s/p Zosyn ID RECOMMENDATIONS/PLAN: Clinically stable = continue current ABX f/u podiatry rec-s. Chemo per oncology rec-s . Problems: Consultation Date/Type/Reason Admit Date/Time Apr 10, 2016 at 16:55 Initial Consult Date 04/11/16 Type of Consultation: ID Referring Provider: LAUREL ANDERSON Exam/Review of Systems Vital Signs Vitals Vital Signs Date Time Temp Pulse Resp B/P Pulse Ox O2 Delivery O2 Flow Rate FiO2 04/16/16 08:00 99.0 79 18 150/97 96 Room Air 04/14/16 11:14 3.0 Intake and Output 04/15/16 04/15/16 04/16/16 15:00 23:00 07:00 Intake Total 480 ml 400 ml 1400 ml Output Total 400 ml 450 ml 1750 ml Balance 80 ml -50 ml -350 ml Results Result Diagram: 04/16/16 0428 04/16/16 0428 Results 24 hrs Laboratory Tests Test 04/15/16 17:00 04/15/16 20:38 04/16/16 04:28 04/16/16 07:55 Bedside Glucose 139 114 130 Alanine Aminotransferase (ALT/SGPT) 40 Albumin 3.3 Albumin/Globulin Ratio 0.62 Alkaline Phosphatase 272 H Anion Gap 15 Aspartate Amino Transf (AST/SGOT) 41 Band Neutrophils % 1.0 Blood Morphology Comment Blood Urea Nitrogen 12 Calcium Level 8.2 L Carbon Dioxide Level 25 Chloride Level 99 Creatinine 0.69 Differential Comment MANUAL DIFF Direct Bilirubin 0.80 H Globulin 5.30 H Glucose Level 161 Hematocrit 27.9 L Hemoglobin 9.2 L Indirect Bilirubin 0.7 Lymphocytes # 4.7 H Lymphocytes % 91.0 H Magnesium Level 2.1 Mean Corpuscular Hemoglobin 30.1 Mean Corpuscular Hemoglobin Concent 32.9 Mean Corpuscular Volume 91.4 Mean Platelet Volume 8.2 Neutrophils # 0.4 L Neutrophils % 7.0 L Nucleated Red Blood Cells # Nucleated Red Blood Cells % 10.0 H Phosphorus Level 3.5 Platelet Count 42 L Platelet Estimate PLT APPEAR DECREASED Potassium Level 4.2 Reactive Lymphocytes % 1.0 Red Blood Count 3.05 L Red Cell Distribution Width 23.0 H Sodium Level 135 Total Bilirubin 1.5 H Total Protein 8.6 H White Blood Count 5.2 Test 04/16/16 11:24 Bedside Glucose 183 Medications Medications Current Medications Insulin Glargine (Lantus) 23 unit QHS SC Last administered on 04/15/16at 20:43 ; Admin Dose 23 UNIT; Start 04/10/16 at 21:00 Ondansetron HCl (Zofran Inj) 4 mg Q6H PRN IV NAUSEA AND/OR VOMITING; Start 04/10/16 at 19:00 Nitroglycerin (Nitroglycerin (Sl Tab) 0.4 Mg) 1 tab Q5M PRN SL CHEST PAIN; Start 04/10/16 at 19:00 Acetaminophen (Tylenol Tab) 650 mg Q6H PRN PO PAIN LEVEL 1-3 OR FEVER Last administered on 04/11/16at 23:01; Admin Dose 650 MG; Start 04/10/16 at 19:00 Acetaminophen/ Hydrocodone Bitart ([place] (5/325)) 1 tab Q6H PRN PO PAIN LEVEL 4 -6 Last administered on 04/14/16at 23:25; Admin Dose 1 TAB; Start 04/10/16 at 19: 00 Acetaminophen/ Hydrocodone Bitart ([place] (5/325)) 2 tab Q6H PRN PO PAIN LEVEL 7 -10 Last administered on 04/16/16at 08:22; Admin Dose 2 TAB; Start 04/10/16 at 19:00 Morphine Sulfate (morphine) 2 mg Q4H PRN IV PAIN LEVEL 7-10 Last administered on 04/16/16at 14:28; Admin Dose 2 MG; Start 04/10/16 at 19:00 Magnesium Hydroxide (Milk Of Mag) 30 ml DAILY PRN PO CONSTIPATION Last administered on 04/13/16at 15:13; Admin Dose 30 ML; Start 04/10/16 at 19:00 Bisacodyl (Dulcolax Supp) 10 mg DAILY PRN [place] CONSTIPATION; Start 04/10/16 at 19 :00 Pantoprazole (Protonix Tab) 40 mg DAILY@06 PO Last administered on 04/16/16at 06:18; Admin Dose 40 MG; Start 04/11/16 at 06:00 Miscellaneous Information 1 ea NOTE XX ; Start 04/10/16 at 19:00 Glucose (Glutose) 15 gm Q15M PRN PO DECREASED GLUCOSE; Start 04/10/16 at 19:00 Glucose (Glutose) 22.5 gm Q15M PRN PO DECREASED GLUCOSE; Start 04/10/16 at 19: 00 Dextrose (D50w Syringe) 25 ml Q15M PRN IV DECREASED GLUCOSE; Start 04/10/16 at 19:00 Dextrose (D50w Syringe) 50 ml Q15M PRN IV DECREASED GLUCOSE; Start 04/10/16 at 19:00 Glucagon (Glucagen) 1 mg Q15M PRN IM DECREASED GLUCOSE; Start 04/10/16 at 19:00 Glucose (Glutose) 15 gm Q15M PRN BUCCAL DECREASED GLUCOSE; Start 04/10/16 at 19 :00 Metoprolol Tartrate (Lopressor) 100 mg BID PO Last administered on 04/16/16at 08:23; Admin Dose 100 MG; Start 04/11/16 at 09:00 Docusate Sodium (Colace) 100 mg Q12H PO Last administered on 04/16/16at 06:18; Admin Dose 100 MG; Start 04/11/16 at 19:00 Polyethylene Glycol (Miralax) 17 gm DAILY PO Last administered on 04/16/16at 08 :24; Admin Dose 17 GM; Start 04/11/16 at 13:00 Amlodipine Besylate (Norvasc) 2.5 mg DAILY PO Last administered on 04/16/16 08:22; Admin Dose 2.5 MG; Start 04/14/16 at 09:00 Lisinopril 5 mg 5 mg BID PO Last administered on 04/16/16at 08:22; Admin Dose 5 MG; Start 04/15/16 at 21:00 Vancomycin HCl/ Sodium Chloride (Vancocin/NS) 500 ml @ 125 mls/hr Q24H IVPB Last administered on 04/16/16 01:23; Admin Dose 125 MLS/HR; Start 04/16/16 at 00:00 Levofloxacin (Levaquin) 500 mg DAILY@06 PO Last administered on 04/16/16 06: 18; Admin Dose 500 MG; Start 04/15/16 at 14:00 LENCHO ESQUIVEL NP Apr 16, 2016 16:53
[2016-04-16 20:10] VITALS: BP 131/83; PULSE 95; RESP 20
[2016-04-16] MEDS: INSULIN GLARGINE [LANtus] 3 ML PEN SC SCH (21:10)
--- NOTE | 2016-04-16 23:34 | PN ---
Date/Time of Note Date/Time of Note DATE: 04/16/16 TIME: 23:34 Assessment/Plan Lines/Catheters IV Catheter Type (from Nrsg): Saline Lock Esquivel in Place (from Nrsg): No Assessment/Plan Problems: (1) Diabetic ulcer of right foot Status: Acute (2) Diabetes, polyneuropathy Assessment/Plan Continue current treatment. Patient will be followed in-house. Subjective 24 Hr Interval Summary Patient was seen at bedside. Patient is in no acute distress. Patient reports no new adverse events. Patient denies fever, chills, nausea or vomiting. Pain Control: well controlled Exam/Review of Systems Vital Signs Vitals Vital Signs Date Time Temp Pulse Resp B/P Pulse Ox O2 Delivery O2 Flow Rate FiO2 04/25/16 08:00 97.8 80 17 132/77 98 Room Air Intake and Output 04/24/16 04/24/16 04/25/16 15:00 23:00 07:00 Intake Total 2230 ml 340 ml Output Total 1200 ml Balance 1030 ml 340 ml Exam Free Text/Dictation GENERAL APPEARANCE: Patient is in no acute distress laying supine in bed VASCULAR EXAM: Dorsalis pedis and posterior tibial pulse weakly palpable bilaterally. Normal capillary filling time noted on exam. Normal temperature gradient noted on exam. Bilateral foot edema noted. Mild varicose veins noted on examination NEUROLOGICAL EXAM: Protective sensation is diminished to sharp, dull, vibratory and temperature stimuli bilaterally. Normal deep tendon reflexes noted. Negative Tinel sign on examination of bilateral lower extremity DERMATOLOGICAL EXAM: Right foot open wound improved significant. There is nontender to palpation and there is no erythema MUSCULOSKELETAL EXAM: Planus foot type with contracted toes bilaterally. Nontender to palpation Results Result Diagram: 04/25/16 0450 04/25/16 0450 IRENE CARVAJAL DPM Apr 16, 2016 23:34
--- NOTE | 2016-04-16 23:34 | CONS ---
Date/Time of Note Date/Time of Note DATE: 04/16/16 TIME: 23:34 Assessment/Plan Assessment/Plan Chief Complaint/Hosp Course This is a 55-year-old -[place] gentleman who is familiar to my practice. He has multiple medical problems including diabetes mellitus, hypertension, cardiomegaly, legally blind, history of multiple wounds on his feet who is admitted to the hospital with complaints of sharp midsternal to left -sided chest pain. I was consulted for evaluation and continued treatment of his foot wounds. Patient reports no pain in his feet. Denies fever. Problems: (1) Diabetes, polyneuropathy (2) Diabetic ulcer of right foot Status: Acute Additional Assessment/Plan Dressing change to continue daily. Partial weightbearing is allowed. Patient will be followed in-house. Prognosis is guarded. Thank you again for involving me in the care of this patient. If you have any questions regarding this case, please feel free to contact me at pager: or reach me at mobile: [phone]. Consultation Date/Type/Reason Admit Date/Time Apr 10, 2016 at 16:55 Date of Consultation: Apr 16, 2016 Type of Consultation: Foot and ankle surgery Reason for Consultation Evaluation of open wound on feet. Hx of Present Illness This is a 55-year-old -[place] gentleman who is familiar to my practice. He has multiple medical problems including diabetes mellitus, hypertension, cardiomegaly, legally blind, history of multiple wounds on his feet who is admitted to the hospital with complaints of sharp midsternal to left -sided chest pain. I was consulted for evaluation and continued treatment of his foot wounds. Patient reports no pain in his feet. Denies fever. As per history of present illness. Constitutional: no complaints Eyes: no complaints ENT: no complaints Respiratory: no complaints Cardiovascular: no complaints Gastrointestinal: constipation, decreased appetite, nausea Genitourinary: no complaints Musculoskeletal: other (pain over right foot wound) Skin: no complaints Neurologic: no complaints Endocrine: other (diabetes) Psychological: other (upset ) Past Medical History As per history of present illness. Past Surgical History As per history of present illness. Social History Alcohol Use: occasionally Smoking Status: Never smoker Drug Use: none Exam/Review of Systems Vital Signs Vitals Vital Signs Date Time Temp Pulse Resp B/P Pulse Ox O2 Delivery O2 Flow Rate FiO2 12/11/16 08:00 99.0 79 18 150/97 96 Room Air 04/14/16 11:14 3.0 Intake and Output 04/15/16 04/15/16 04/16/16 15:00 23:00 07:00 Intake Total 480 ml 400 ml 1400 ml Output Total 400 ml 450 ml 1750 ml Balance 80 ml -50 ml -350 ml Exam Foot and ankle exam under examination: GENERAL APPEARANCE: Patient is in no acute distress laying supine in bed VASCULAR EXAM: Dorsalis pedis and posterior tibial pulse weakly palpable bilaterally. Delayed capillary filling time noted on exam. Normal temperature gradient noted on exam. Edema bilateral feet. No varicose veins noted on examination NEUROLOGICAL EXAM: Protective sensation is diminished to sharp, dull, vibratory and temperature stimuli bilaterally. Normal deep tendon reflexes noted. Negative Tinel sign on examination of bilateral lower extremity DERMATOLOGICAL EXAM: Multiple open wounds in various stages of healing in the feet. No drainage of pus and no bleeding noted. Nontender to palpation MUSCULOSKELETAL EXAM: Contracted toes with flat feet. Normal muscle power. No calf atrophy bilateral lower legs Gait is normal without a limpIMAGING: Reviewed in chart[IMAGING: Reviewed in chart] LABS: Reviewed in chart Results Result Diagram: 04/16/168 04/16/16 0428 Results 24 hrs Laboratory Tests Test 04/16/16 04:28 04/16/16 07:55 04/16/16 11:24 04/16/16 17:38 Alanine Aminotransferase (ALT/SGPT) 40 Albumin 3.3 Albumin/Globulin Ratio 0.62 Alkaline Phosphatase 272 H Anion Gap 15 Aspartate Amino Transf (AST/SGOT) 41 Band Neutrophils % 1.0 Blood Morphology Comment Blood Urea Nitrogen 12 Calcium Level 8.2 L Carbon Dioxide Level 25 Chloride Level 99 Creatinine 0.69 Differential Comment MANUAL DIFF Direct Bilirubin 0.80 H Globulin 5.30 H Glucose Level 161 Hematocrit 27.9 L Hemoglobin 9.2 L Indirect Bilirubin 0.7 Lymphocytes # 4.7 H Lymphocytes % 91.0 H Magnesium Level 2.1 Mean Corpuscular Hemoglobin 30.1 Mean Corpuscular Hemoglobin Concent 32.9 Mean Corpuscular Volume 91.4 Mean Platelet Volume 8.2 Neutrophils # 0.4 L Neutrophils % 7.0 L Nucleated Red Blood Cells # Nucleated Red Blood Cells % 10.0 H Phosphorus Level 3.5 Platelet Count 42 L Platelet Estimate PLT APPEAR DECREASED Potassium Level 4.2 Reactive Lymphocytes % 1.0 Red Blood Count 3.05 L Red Cell Distribution Width 23.0 H Sodium Level 135 Total Bilirubin 1.5 H Total Protein 8.6 H White Blood Count 5.2 Bedside Glucose 130 183 206 Test 04/16/16 21:04 Bedside Glucose 190 Medications Medications Current Medications Insulin Glargine (Lantus) 23 unit QHS SC Last administered on 04/16/16at 21:10 ; Admin Dose 23 UNIT; Start 04/10/16 at 21:00 Ondansetron HCl (Zofran Inj) 4 mg Q6H PRN IV NAUSEA AND/OR VOMITING; Start 04/10/16 at 19:00 Nitroglycerin (Nitroglycerin (Sl Tab) 0.4 Mg) 1 tab Q5M PRN SL CHEST PAIN; Start 04/10/16 at 19:00 Acetaminophen (Tylenol Tab) 650 mg Q6H PRN PO PAIN LEVEL 1-3 OR FEVER Last administered on 04/11/16at 23:01; Admin Dose 650 MG; Start 04/10/16 at 19:00 Acetaminophen/ Hydrocodone Bitart ([place] (5/325)) 1 tab Q6H PRN PO PAIN LEVEL 4 -6 Last administered on 04/14/16at 23:25; Admin Dose 1 TAB; Start 04/10/16 at 19: 00 Acetaminophen/ Hydrocodone Bitart ([place] (5/325)) 2 tab Q6H PRN PO PAIN LEVEL 7 -10 Last administered on 04/16/16at 17:42; Admin Dose 2 TAB; Start 04/10/16 at 19:00 Morphine Sulfate (morphine) 2 mg Q4H PRN IV PAIN LEVEL 7-10 Last administered on 04/16/16at 21:08; Admin Dose 2 MG; Start 04/10/16 at 19:00 Magnesium Hydroxide (Milk Of Mag) 30 ml DAILY PRN PO CONSTIPATION Last administered on 04/13/16at 15:13; Admin Dose 30 ML; Start 04/10/16 at 19:00 Bisacodyl (Dulcolax Supp) 10 mg DAILY PRN [place] CONSTIPATION; Start 04/10/16 at 19 :00 Pantoprazole (Protonix Tab) 40 mg DAILY@06 PO Last administered on 04/16/16at 06:18; Admin Dose 40 MG; Start 04/11/16 at 06:00 Miscellaneous Information 1 ea NOTE XX ; Start 04/10/16 at 19:00 Glucose (Glutose) 15 gm Q15M PRN PO DECREASED GLUCOSE; Start 04/10/16 at 19:00 Glucose (Glutose) 22.5 gm Q15M PRN PO DECREASED GLUCOSE; Start 04/10/16 at 19: 00 Dextrose (D50w Syringe) 25 ml Q15M PRN IV DECREASED GLUCOSE; Start 04/10/16 at 19:00 Dextrose (D50w Syringe) 50 ml Q15M PRN IV DECREASED GLUCOSE; Start 04/10/16 at 19:00 Glucagon (Glucagen) 1 mg Q15M PRN IM DECREASED GLUCOSE; Start 04/10/16 at 19:00 Glucose (Glutose) 15 gm Q15M PRN BUCCAL DECREASED GLUCOSE; Start 04/10/16 at 19 :00 Metoprolol Tartrate (Lopressor) 100 mg BID PO Last administered on 04/16/16at 21:07; Admin Dose 100 MG; Start 04/11/16 at 09:00 Docusate Sodium (Colace) 100 mg Q12H PO Last administered on 04/16/16at 19:06; Admin Dose 100 MG; Start 04/11/16 at 19:00 Polyethylene Glycol (Miralax) 17 gm DAILY PO Last administered on 04/16/16at 08 :24; Admin Dose 17 GM; Start 04/11/16 at 13:00 Amlodipine Besylate (Norvasc) 2.5 mg DAILY PO Last administered on 04/16/16at 08:22; Admin Dose 2.5 MG; Start 04/14/16 at 09:00 Lisinopril 5 mg 5 mg BID PO Last administered on 04/16/16at 21:06; Admin Dose 5 MG; Start 04/15/16 at 21:00 Vancomycin HCl/ Sodium Chloride (Vancocin/NS) 500 ml @ 125 mls/hr Q24H IVPB Last administered on 04/16/16at 01:23; Admin Dose 125 MLS/HR; Start 04/16/16 at 00:00 Levofloxacin (Levaquin) 500 mg DAILY@06 PO Last administered on 04/16/16at 06: 18; Admin Dose 500 MG; Start 04/15/16 at 14:00 IRENE CARVAJAL DPM Apr 16, 2016 23:34
[2016-04-17] MEDS: morphine 2 MG INJ IV PRN ×3 (02:47→16:59)
[2016-04-17] MEDS: MAGNESIUM HYDROXIDE 30ML CUP PO PRN (05:47)
[2016-04-17] MEDS: PANTOPRAZOLE (EC) 40 MG TAB PO SCH (05:47)
[2016-04-17] MEDS: LEVOFLOXACIN 500 MG TAB PO SCH (05:47)
[2016-04-17] MEDS: HYDROCODONE/APAP (5/325) TAB PO PRN ×2 (05:48→20:39)
[2016-04-17] MEDS: DOCUSATE SODIUM 100 MG CAP PO SCH ×2 (06:45→18:38)
[2016-04-17] MEDS: INSULIN ASPART [NOVOLOG] 3 ML PEN SC SCH ×7 (07:50→20:36)
[2016-04-17 08:10] VITALS: BP 126/73; PULSE 80; RESP 18
[2016-04-17] MEDS: POLYETHYLENE GLYCOL 17 GM PACKET PO SCH (09:37)
[2016-04-17] MEDS: METOPROLOL 100 MG TAB PO SCH ×2 (09:38→20:38)
[2016-04-17] MEDS: AMLODIPINE 2.5 MG TAB PO SCH (09:39)
[2016-04-17] MEDS: LISINOPRIL 5 MG TAB PO SCH ×2 (09:39→20:38)
--- NOTE | 2016-04-17 11:45 | PN ---
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 HIV negative. Appreciate Hematology eval and plan of care. Dr Flannery will discuss with patient need for chemo and plans to start early this week Post 6 units pRBC since admission and remains stable @ 9.2. PICC line placement today and initiation of chemo today or in AM. 2. Fever with likely acute infection of his right 1st and 2nd toe. ESR elevated. Afebrile The patient also had a rash, maculopapular. He does have a history of methicillin-resistant Staphylococcus aureus skin and soft-tissue infection years ago requiring extensive debridement of the left upper extremity. MRI foot with osteomyelitis and JOSE J negative Continue Vancomycin and Levaquin per ID Blood cultures NGTD and wound cultures pending. Wound care and Dr Thomas following patient. 3. Diabetes mellitus. A1c back at 7.2 ...Continue current insulin regimen, keeping off glyburide. On Tradjenta Appreciate tobacco educator recommendations. Patient needs to be compliant with ADA diet, he was sending his friend by him Shustir ... 4. Cardiomegaly, EF 50%. No further episodes of NSVT since yesterday. Continue Lopressor/Bblock Electrolytes stable again today. S/p negative JOSE J 5. Hypertension. Continue beta blockers and Norvasc and increase Lisinopril dose. 6. Constipation: Miralax and colace scheduled and add MOM along with dulcolax prn Prophylaxis. Proton pump inhibitors for GI prophylaxis and SCDs for DVT prophylaxis. DISPOSITION: PICC line today and initiation of chemo today or in AM. F/u wound care and follow up further ID and Podiatry recs Subjective 24 Hr Interval Summary Free Text/Dictation Patient doing OK and remains stable, PICC line placement today and to initiate chemo within the next 24hrs if regimen ready Exam/Review of Systems Vital Signs Vitals Vital Signs Date Time Temp Pulse Resp B/P Pulse Ox O2 Delivery O2 Flow Rate FiO2 04/17/16 08:10 98.7 80 18 126/73 95 Room Air 04/14/16 11:14 3.0 Intake and Output 04/16/16 04/16/16 04/17/16 15:00 23:00 07:00 Intake Total 1200 ml 900 ml Output Total 1000 ml 950 ml Balance 200 ml -50 ml Exam Constitutional: alert, oriented, other (blind), well developed Respiratory: clear to auscultation, normal air movement Cardiovascular: nl pulses, regular rate and rhythm Gastrointestinal: non-tender, soft Musculoskeletal: nl extremities to inspection Extremities: normal pulses, other (no edema, clubbing or cyanosis ) 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: 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 SERVICE ENGINEER II-XII 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, nl mental status, nl speech, nl strength, other (blind ) Results Result Diagram: 04/16/1642704/16/16427 Results 24 hrs Laboratory Tests Test 04/16/16 17:38 04/16/16 21:04 04/17/16 08:08 Bedside Glucose 206 190 127 Medications Medications Current Medications Insulin Glargine (Lantus) 23 unit QHS SC Last administered on 04/16/16at 21:10 ; Admin Dose 23 UNIT; Start 04/10/16 at 21:00 Ondansetron HCl (Zofran Inj) 4 mg Q6H PRN IV NAUSEA AND/OR VOMITING; Start 04/10/16 at 19:00 Nitroglycerin (Nitroglycerin (Sl Tab) 0.4 Mg) 1 tab Q5M PRN SL CHEST PAIN; Start 04/10/16 at 19:00 Acetaminophen (Tylenol Tab) 650 mg Q6H PRN PO PAIN LEVEL 1-3 OR FEVER Last administered on 04/11/16at 23:01; Admin Dose 650 MG; Start 04/10/16 at 19:00 Acetaminophen/ Hydrocodone Bitart ([place] (5/325)) 1 tab Q6H PRN PO PAIN LEVEL 4 -6 Last administered on 04/14/16at 23:25; Admin Dose 1 TAB; Start 04/10/16 at 19: 00 Acetaminophen/ Hydrocodone Bitart ([place] (5/325)) 2 tab Q6H PRN PO PAIN LEVEL 7 -10 Last administered on 04/17/16at 05:48; Admin Dose 2 TAB; Start 04/10/16 at 19:00 Morphine Sulfate (morphine) 2 mg Q4H PRN IV PAIN LEVEL 7-10 Last administered on 04/17/16at 10:16; Admin Dose 2 MG; Start 04/10/16 at 19:00 Magnesium Hydroxide (Milk Of Mag) 30 ml DAILY PRN PO CONSTIPATION Last administered on 04/17/16at 05:47; Admin Dose 30 ML; Start 04/10/16 at 19:00 Bisacodyl (Dulcolax Supp) 10 mg DAILY PRN [place] CONSTIPATION; Start 04/10/16 at 19 :00 Pantoprazole (Protonix Tab) 40 mg DAILY@06 PO Last administered on 04/17/16at 05:47; Admin Dose 40 MG; Start 04/11/16 at 06:00 Miscellaneous Information 1 ea NOTE XX ; Start 04/10/16 at 19:00 Glucose (Glutose) 15 gm Q15M PRN PO DECREASED GLUCOSE; Start 04/10/16 at 19:00 Glucose (Glutose) 22.5 gm Q15M PRN PO DECREASED GLUCOSE; Start 04/10/16 at 19: 00 Dextrose (D50w Syringe) 25 ml Q15M PRN IV DECREASED GLUCOSE; Start 04/10/16 at 19:00 Dextrose (D50w Syringe) 50 ml Q15M PRN IV DECREASED GLUCOSE; Start 04/10/16 at 19:00 Glucagon (Glucagen) 1 mg Q15M PRN IM DECREASED GLUCOSE; Start 04/10/16 at 19:00 Glucose (Glutose) 15 gm Q15M PRN BUCCAL DECREASED GLUCOSE; Start 04/10/16 at 19 :00 Metoprolol Tartrate (Lopressor) 100 mg BID PO Last administered on 04/17/16at 09:38; Admin Dose 100 MG; Start 04/11/16 at 09:00 Docusate Sodium (Colace) 100 mg Q12H PO Last administered on 04/17/16at 06:45; Admin Dose 100 MG; Start 04/11/16 at 19:00 Polyethylene Glycol (Miralax) 17 gm DAILY PO Last administered on 04/17/16at 09 :37; Admin Dose 17 GM; Start 04/11/16 at 13:00 Amlodipine Besylate (Norvasc) 2.5 mg DAILY PO Last administered on 04/17/16at 09:39; Admin Dose 2.5 MG; Start 04/14/16 at 09:00 Lisinopril (Zestril) 5 mg BID PO Last administered on 04/17/16at 09:39; Admin Dose 5 MG; Start 04/15/16 at 21:00 Levofloxacin 500 mg 500 mg DAILY@06 PO Last administered on 04/17/16at 05:47; Admin Dose 500 MG; Start 04/15/16 at 14:00 Vancomycin HCl/ Sodium Chloride (Vancocin/NS) 500 ml @ 125 mls/hr Q12H IVPB ; Start 04/17/16 at 12:00 Miscellaneous Information (*Rx Drug Level Order Reminder*) VANCOMYCIN TROUGH AT 1100 ONCE ONCE XX ; Start 04/18/16 at 11:00; Stop 04/18/16 at 11:01 LAUREL ANDERSON Apr 17, 2016 11:42
[2016-04-17] MEDS ORDERED: LIDOCAINE 1% (MDV) 20 ML INJ SC ONE (12:00)
[2016-04-17] MEDS: VANCOMYCIN 2 GM in SOD CHLORIDE 0.9% 500 ML IVPB SCH (13:23)
--- NOTE | 2016-04-17 14:23 | CONS ---
Date/Time of Note Date/Time of Note DATE: 04/17/16 TIME: 14:22 Consult Date/Type/Reason Admit Date/Time Apr 10, 2016 at 16:55 Initial Consult Date 04/11/16 Type of Consultation: ID Ordering Provider: LAUREL ANDERSON Subjective awake, lying comfortably in bed, no fevers, nad Objective Vital Signs Date Time Temp Pulse Resp B/P Pulse Ox O2 Delivery O2 Flow Rate FiO2 04/17/16 08:10 98.7 80 18 126/73 95 Room Air 04/14/16 11:14 3.0 Intake and Output 04/16/16 04/16/16 04/17/16 15:00 23:00 07:00 Intake Total 1200 ml 900 ml Output Total 1000 ml 950 ml Balance 200 ml -50 ml Results/Medications Result Diagram: 04/16/16 0428 04/16/16 0428 Results 24 hrs Laboratory Tests Test 04/16/16 17:38 04/16/16 21:04 04/17/16 08:08 04/17/16 11:58 Bedside Glucose 206 190 127 171 Medications Current Medications Insulin Glargine (Lantus) 23 unit QHS SC Last administered on 04/16/16at 21:10 ; Admin Dose 23 UNIT; Start 04/10/16 at 21:00 Ondansetron HCl (Zofran Inj) 4 mg Q6H PRN IV NAUSEA AND/OR VOMITING; Start 04/10/16 at 19:00 Nitroglycerin (Nitroglycerin (Sl Tab) 0.4 Mg) 1 tab Q5M PRN SL CHEST PAIN; Start 04/10/16 at 19:00 Acetaminophen (Tylenol Tab) 650 mg Q6H PRN PO PAIN LEVEL 1-3 OR FEVER Last administered on 04/11/16at 23:01; Admin Dose 650 MG; Start 04/10/16 at 19:00 Acetaminophen/ Hydrocodone Bitart ([place] (5/325)) 1 tab Q6H PRN PO PAIN LEVEL 4 -6 Last administered on 04/14/16at 23:25; Admin Dose 1 TAB; Start 04/10/16 at 19: 00 Acetaminophen/ Hydrocodone Bitart ([place] (5/325)) 2 tab Q6H PRN PO PAIN LEVEL 7 -10 Last administered on 04/17/16at 05:48; Admin Dose 2 TAB; Start 04/10/16 at 19:00 Morphine Sulfate (morphine) 2 mg Q4H PRN IV PAIN LEVEL 7-10 Last administered on 04/17/16at 10:16; Admin Dose 2 MG; Start 04/10/16 at 19:00 Magnesium Hydroxide (Milk Of Mag) 30 ml DAILY PRN PO CONSTIPATION Last administered on 04/17/16at 05:47; Admin Dose 30 ML; Start 04/10/16 at 19:00 Bisacodyl (Dulcolax Supp) 10 mg DAILY PRN [place] CONSTIPATION; Start 04/10/16 at 19 :00 Pantoprazole (Protonix Tab) 40 mg DAILY@06 PO Last administered on 04/17/16at 05:47; Admin Dose 40 MG; Start 04/11/16 at 06:00 Miscellaneous Information 1 ea NOTE XX ; Start 04/10/16 at 19:00 Glucose (Glutose) 15 gm Q15M PRN PO DECREASED GLUCOSE; Start 04/10/16 at 19:00 Glucose (Glutose) 22.5 gm Q15M PRN PO DECREASED GLUCOSE; Start 04/10/16 at 19: 00 Dextrose (D50w Syringe) 25 ml Q15M PRN IV DECREASED GLUCOSE; Start 04/10/16 at 19:00 Dextrose (D50w Syringe) 50 ml Q15M PRN IV DECREASED GLUCOSE; Start 04/10/16 at 19:00 Glucagon (Glucagen) 1 mg Q15M PRN IM DECREASED GLUCOSE; Start 04/10/16 at 19:00 Glucose (Glutose) 15 gm Q15M PRN BUCCAL DECREASED GLUCOSE; Start 04/10/16 at 19 :00 Metoprolol Tartrate (Lopressor) 100 mg BID PO Last administered on 04/17/16at 09:38; Admin Dose 100 MG; Start 04/11/16 at 09:00 Docusate Sodium (Colace) 100 mg Q12H PO Last administered on 04/17/16at 06:45; Admin Dose 100 MG; Start 04/11/16 at 19:00 Polyethylene Glycol (Miralax) 17 gm DAILY PO Last administered on 04/17/16at 09 :37; Admin Dose 17 GM; Start 04/11/16 at 13:00 Amlodipine Besylate (Norvasc) 2.5 mg DAILY PO Last administered on 04/17/16at 09:39; Admin Dose 2.5 MG; Start 04/14/16 at 09:00 Lisinopril (Zestril) 5 mg BID PO Last administered on 04/17/16at 09:39; Admin Dose 5 MG; Start 04/15/16 at 21:00 Levofloxacin 500 mg 500 mg DAILY@06 PO Last administered on 04/17/16at 05:47; Admin Dose 500 MG; Start 04/15/16 at 14:00 Vancomycin HCl/ Sodium Chloride (Vancocin/NS) 500 ml @ 125 mls/hr Q12H IVPB Last administered on 04/17/16at 13:23; Admin Dose 125 MLS/HR; Start 04/17/16 at 12:00 Miscellaneous Information (*Rx Drug Level Order Reminder*) VANCOMYCIN TROUGH AT 1100 ONCE ONCE XX ; Start 04/18/16 at 11:00; Stop 04/18/16 at 11:01 Assessment/Plan Chief Complaint/Hosp Course ANTIMICROBIALS: 1. Vancomycin. 2. Levaquin. PHYSICAL EXAMINATION: GENERAL: Obese, well-developed, middle-aged man who is awake, in no distress. HEENT: Head atraumatic, normocephalic. Sclerae anicteric. Buccal mucosa pink. NECK: Supple. Trachea midline. LUNGS: Chest rise symmetrical. Breath sounds clear, diminished at bases. HEART: S1, S2. ABDOMEN: Soft. Bowel tones present. EXTREMITIES: With right foot edema ASSESSMENT: 1. 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 2. Systemic inflammatory response syndrome with fever on admission, elevated ESR, significant thrombocytopenia and anemia. The patient is being followed by hematology team, status post CT-guided bone marrow biopsy. 3. Diabetes. 4. Hypertension. 5. Legally blind. 6. Hairy cell leukemia PLAN: Clinically unchanged, continue abx, plan for PICC/chemotherapy, onc/ podiatry rec-s [facility] staff Problems: JUVENAL SANCHEZ NP Apr 17, 2016 14:23
--- NOTE | 2016-04-17 14:32 | CONS ---
Date/Time of Note Date/Time of Note DATE: 04/17/16 TIME: 14:29 Assessment/Plan Assessment/Plan Chief Complaint/Hosp Course 55-year-old gentleman with multiple medical problems including insulin dependant DM (not compliant), 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 He also reported easy bruising but not bleeding. Initial labs also revealed pancytopenia with a Hg 6.7 and platelets in 30's. Pt has since been diagnosed with HAIRY CELL LEUKEMIA Problems: Additional Assessment/Plan -Final results of bone marrow biopsy show evidence of hairy cell leukemia, pending immunostains to confirm. Patient is now aware of these findings. Patient will stay in house for treatment with chemotherapy which is cladribine 0.14mg/kg/day x 7 days. will start chemotherapy even while patient is on antibiotics. 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 we have to treat the underlying leukemia to help him fight his multiple chronic infections. Chemotherapy to start today - hemolysis unlikely with high haptoglobin, normal LDH and peripheral smear without schistocytes. -f/u blood cultures as pt appears to have a disseminated infection which may be the cause of this severe anemia. cultures are thus far negative Approximately 40 min were spent at patient's bedside and in coordination of his care Consultation Date/Type/Reason Admit Date/Time Apr 10, 2016 at 16:55 Initial Consult Date 04/11/16 Type of Consultation: Hematology Reason for Consultation hairy cell leukemia Referring Provider: LAUREL ANDERSON 24 HR Interval Summary Free Text/Dictation no acute overnight events. pt still has not had a bowel movement Exam/Review of Systems Vital Signs Vitals Vital Signs Date Time Temp Pulse Resp B/P Pulse Ox O2 Delivery O2 Flow Rate FiO2 04/17/16 08:10 98.7 80 18 126/73 95 Room Air 04/14/16 11:14 3.0 Intake and Output 04/16/16 04/16/16 04/17/16 15:00 23:00 07:00 Intake Total 1200 ml 900 ml Output Total 1000 ml 950 ml Balance 200 ml -50 ml Exam Constitutional: alert, oriented Psych: no complaints Head: atraumatic, normocephalic Eyes: nl conjunctiva ENMT: nl external ears & nose, nl lips & teeth Neck: non-tender, supple Respiratory: clear to auscultation Cardiovascular: regular rate and rhythm Gastrointestinal: soft Musculoskeletal: nl extremities to inspection Results Result Diagram: 04/16/16 0428 04/16/16 0428 Results 24 hrs Laboratory Tests Test 04/16/16 17:38 04/16/16 21:04 04/17/16 08:08 04/17/16 11:58 Bedside Glucose 206 190 127 171 Medications Medications Current Medications Insulin Glargine (Lantus) 23 unit QHS SC Last administered on 04/16/16at 21:10 ; Admin Dose 23 UNIT; Start 04/10/16 at 21:00 Ondansetron HCl (Zofran Inj) 4 mg Q6H PRN IV NAUSEA AND/OR VOMITING; Start 04/10/16 at 19:00 Nitroglycerin (Nitroglycerin (Sl Tab) 0.4 Mg) 1 tab Q5M PRN SL CHEST PAIN; Start 04/10/16 at 19:00 Acetaminophen (Tylenol Tab) 650 mg Q6H PRN PO PAIN LEVEL 1-3 OR FEVER Last administered on 04/11/16at 23:01; Admin Dose 650 MG; Start 04/10/16 at 19:00 Acetaminophen/ Hydrocodone Bitart ([place] (5/325)) 1 tab Q6H PRN PO PAIN LEVEL 4 -6 Last administered on 04/14/16at 23:25; Admin Dose 1 TAB; Start 04/10/16 at 19: 00 Acetaminophen/ Hydrocodone Bitart ([place] (5/325)) 2 tab Q6H PRN PO PAIN LEVEL 7 -10 Last administered on 04/17/16at 05:48; Admin Dose 2 TAB; Start 04/10/16 at 19:00 Morphine Sulfate (morphine) 2 mg Q4H PRN IV PAIN LEVEL 7-10 Last administered on 04/17/16at 10:16; Admin Dose 2 MG; Start 04/10/16 at 19:00 Magnesium Hydroxide (Milk Of Mag) 30 ml DAILY PRN PO CONSTIPATION Last administered on 04/17/16at 05:47; Admin Dose 30 ML; Start 04/10/16 at 19:00 Bisacodyl (Dulcolax Supp) 10 mg DAILY PRN [place] CONSTIPATION; Start 04/10/16 at 19 :00 Pantoprazole (Protonix Tab) 40 mg DAILY@06 PO Last administered on 04/17/16at 05:47; Admin Dose 40 MG; Start 04/11/16 at 06:00 Miscellaneous Information 1 ea NOTE XX ; Start 04/10/16 at 19:00 Glucose (Glutose) 15 gm Q15M PRN PO DECREASED GLUCOSE; Start 04/10/16 at 19:00 Glucose (Glutose) 22.5 gm Q15M PRN PO DECREASED GLUCOSE; Start 04/10/16 at 19: 00 Dextrose (D50w Syringe) 25 ml Q15M PRN IV DECREASED GLUCOSE; Start 04/10/16 at 19:00 Dextrose (D50w Syringe) 50 ml Q15M PRN IV DECREASED GLUCOSE; Start 04/10/16 at 19:00 Glucagon (Glucagen) 1 mg Q15M PRN IM DECREASED GLUCOSE; Start 04/10/16 at 19:00 Glucose (Glutose) 15 gm Q15M PRN BUCCAL DECREASED GLUCOSE; Start 04/10/16 at 19 :00 Metoprolol Tartrate (Lopressor) 100 mg BID PO Last administered on 04/17/16at 09:38; Admin Dose 100 MG; Start 04/11/16 at 09:00 Docusate Sodium (Colace) 100 mg Q12H PO Last administered on 04/17/16at 06:45; Admin Dose 100 MG; Start 04/11/16 at 19:00 Polyethylene Glycol (Miralax) 17 gm DAILY PO Last administered on 04/17/16at 09 :37; Admin Dose 17 GM; Start 04/11/16 at 13:00 Amlodipine Besylate (Norvasc) 2.5 mg DAILY PO Last administered on 04/17/16at 09:39; Admin Dose 2.5 MG; Start 04/14/16 at 09:00 Lisinopril (Zestril) 5 mg BID PO Last administered on 04/17/16at 09:39; Admin Dose 5 MG; Start 04/15/16 at 21:00 Levofloxacin 500 mg 500 mg DAILY@06 PO Last administered on 04/17/16at 05:47; Admin Dose 500 MG; Start 04/15/16 at 14:00 Vancomycin HCl/ Sodium Chloride (Vancocin/NS) 500 ml @ 125 mls/hr Q12H IVPB Last administered on 04/17/16at 13:23; Admin Dose 125 MLS/HR; Start 04/17/16 at 12:00 Miscellaneous Information (*Rx Drug Level Order Reminder*) VANCOMYCIN TROUGH AT 1100 ONCE ONCE XX ; Start 04/18/16 at 11:00; Stop 04/18/16 at 11:01 TOY DWYER M.D. Apr 17, 2016 14:32
[2016-04-17] MEDS: COLLAGENASE 30 GM TUBE TOP SCH (17:04)
[2016-04-17 20:00] VITALS: BP 136/93; PULSE 89; RESP 16
[2016-04-17] MEDS: INSULIN GLARGINE [LANtus] 3 ML PEN SC SCH (20:37)
[2016-04-18] VITALS (8 sets, daily range): BP systolic 132–157; BP diastolic 81–89; PULSE 77–97; RESP 16–20
[2016-04-18] MEDS: VANCOMYCIN 2 GM in SOD CHLORIDE 0.9% 500 ML IVPB SCH ×2 (00:11→12:00)
[2016-04-18] MEDS: HYDROCODONE/APAP (5/325) TAB PO PRN (00:54)
[2016-04-18] MEDS: morphine 2 MG INJ IV PRN ×4 (02:04→23:33)
[2016-04-18 05:28] LABS: MAGNESIUM 2.1 mg/dl (1.7-2.5); PHOSPHORUS 3.7 mg/dl (2.5-4.9)
[2016-04-18 05:29] LABS: ALBUMIN 3.1 g/dl (3.3-4.9)
[2016-04-18 05:31] LABS: BILIRUBIN,INDIRECT 0.5 mg/dl (0-1.1); BILIRUBIN,TOTAL 0.5 mg/dl (0.2-1.3); CREATININE 0.91 mg/dl (0.61-1.24)
[2016-04-18 05:32] LABS: ALBUMIN/GLOBULIN RATIO 0.63; CALCIUM 8.3 mg/dl (8.4-10.2)
[2016-04-18 05:39] LABS: HEMATOCRIT 25.9 % (42.0-52.0); HEMOGLOBIN 8.5 g/dl (14.0-18.0); MEAN CORPUSCULAR HEMOGLOBIN 30.2 pg (29.0-33.0); MEAN CORPUSCULAR VOLUME 91.4 fl (82.0-101.0); PLATELET COUNT 37 10^3/UL (140-440); RED BLOOD COUNT 2.83 10^6/ul (4.70-6.10); RED CELL DISTRIBUTION WIDTH 23.2 % (11.5-14.5); UNCORRECTED WBC 4.9 10^3/ul (4.8-10.8); WHITE BLOOD COUNT 4.9 10^3/ul (4.8-10.8)
[2016-04-18] MEDS: DOCUSATE SODIUM 100 MG CAP PO SCH ×2 (05:40→20:18)
[2016-04-18] MEDS: LEVOFLOXACIN 500 MG TAB PO SCH (05:40)
[2016-04-18] MEDS: PANTOPRAZOLE (EC) 40 MG TAB PO SCH (05:40)
[2016-04-18 05:44] LABS: CONDITION 1; LH ANALYZER COMMENTS 1; MEAN PLATELET VOLUME 8.4 fl (7.4-10.4)
[2016-04-18] MEDS: INSULIN ASPART [NOVOLOG] 3 ML PEN SC SCH ×7 (07:50→20:21)
[2016-04-18 08:30] LABS: ANISOCYTOSIS 3+; LYMPHOCYTES # 4.5 10^3/ul (0.8-2.9); NEUTROPHIL # 0.4 10^3/ul (1.6-7.5); PLATELET ESTIMATE PLT APPEAR DECREASED
[2016-04-18] MEDS: POLYETHYLENE GLYCOL 17 GM PACKET PO SCH (08:40)
[2016-04-18] MEDS: LISINOPRIL 5 MG TAB PO SCH ×2 (08:40→20:19)
[2016-04-18] MEDS: AMLODIPINE 2.5 MG TAB PO SCH (08:40)
[2016-04-18] MEDS: COLLAGENASE 30 GM TUBE TOP SCH (08:41)
[2016-04-18] MEDS: METOPROLOL 100 MG TAB PO SCH ×2 (08:41→20:19)
--- NOTE | 2016-04-18 10:43 | RADRPT ---
PROCEDURE: XR Chest. CLINICAL INDICATION: PICC line placement TECHNIQUE: Single frontal chest x-ray. COMPARISON: 04/10/2016 FINDINGS: There is new left arm PICC line in place with tip in the superior vena cava. . Cardiomegaly is unch anged.. There is bibasilar atelectatic changes increased on the right. There are no alveolar infil trates or effusions.. The osseous structures are intact. IMPRESSION: New left arm PICC line with tip in the superior vena cava. Bibasilar atelectasis increased on the right. Cardiomegaly.. RPTAT: JJ .Dwayne Branch MD, MD Date Time Electronically viewed and signed by .Dwayne Branch MD, on 04/18/2016 10:42 .L/
--- NOTE | 2016-04-18 11:08 | CONS ---
Date/Time of Note Date/Time of Note DATE: 04/18/16 TIME: 11:05 Assessment/Plan Assessment/Plan Chief Complaint/Hosp Course 55-year-old gentleman with multiple medical problems including insulin dependant DM (not compliant), 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 He also reported easy bruising but not bleeding. Initial labs also revealed pancytopenia with a Hg 6.7 and platelets in 30's. Pt has since been diagnosed with HAIRY CELL LEUKEMIA Problems: Additional Assessment/Plan -Final results of bone marrow biopsy confirm evidence of hairy cell leukemia.. Patient is now aware of these findings. Patient will stay in house for treatment with chemotherapy which is cladribine 0.14mg/kg/day x 7 days. will start chemotherapy even while patient is on antibiotics. 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 we have to treat the underlying leukemia to help him fight his multiple chronic infections. Chemotherapy to start today - hemolysis unlikely with high haptoglobin, normal LDH and peripheral smear without schistocytes. -f/u blood cultures as pt appears to have a disseminated infection which may be the cause of this severe anemia. cultures are thus far negative -allopurinol started as prophylaxis for tumor lysis syndrome Approximately 40 min were spent at patient's bedside and in coordination of his care Consultation Date/Type/Reason Admit Date/Time Apr 10, 2016 at 16:55 Initial Consult Date 04/11/16 Type of Consultation: Hematology Reason for Consultation Hairy cell leukemia Referring Provider: LAUREL ANDERSON 24 HR Interval Summary Free Text/Dictation to start chemotherapy today. allopurinol started Exam/Review of Systems Vital Signs Vitals Vital Signs Date Time Temp Pulse Resp B/P Pulse Ox O2 Delivery O2 Flow Rate FiO2 04/18/16 08:27 98.4 87 20 134/87 96 Room Air 04/14/16 11:14 3.0 Intake and Output 04/17/16 04/17/16 04/18/16 15:00 23:00 07:00 Intake Total 1700 ml 1200 ml Output Total 1000 ml 1500 ml Balance 700 ml -300 ml Exam Constitutional: alert, oriented Head: atraumatic, normocephalic Eyes: nl conjunctiva ENMT: nl external ears & nose Neck: non-tender, supple Cardiovascular: regular rate and rhythm Gastrointestinal: soft Musculoskeletal: nl extremities to inspection, nl gait and stance Skin: other (skin lesions unchanged) Results Result Diagram: 04/18/16 0430 04/18/16 0430 Results 24 hrs Laboratory Tests Test 04/17/16 11:58 04/17/16 17:00 04/17/16 17:21 04/17/16 20:33 Bedside Glucose 171 166 223 H Stool Occult Blood NEGATIVE Test 04/18/16 02:31 04/18/16 04:30 04/18/16 07:49 Bedside Glucose 102 117 Alanine Aminotransferase (ALT/SGPT) 51 Albumin 3.1 L Albumin/Globulin Ratio 0.63 Alkaline Phosphatase 243 H Anion Gap 13 Anisocytosis 3+ Aspartate Amino Transf (AST/SGOT) 36 Blood Morphology Comment Blood Urea Nitrogen 14 Calcium Level 8.3 L Carbon Dioxide Level 27 Chloride Level 104 Creatinine 0.91 Direct Bilirubin 0.00 Globulin 4.90 H Glucose Level 130 Hematocrit 25.9 L Hemoglobin 8.5 L Indirect Bilirubin 0.5 Lymphocytes # 4.5 H Lymphocytes % 92.0 H Magnesium Level 2.1 Mean Corpuscular Hemoglobin 30.2 Mean Corpuscular Hemoglobin Concent 33.0 Mean Corpuscular Volume 91.4 Mean Platelet Volume 8.4 Neutrophils # 0.4 L Neutrophils % 8.0 L Nucleated Red Blood Cells # Nucleated Red Blood Cells % 9.0 H Phosphorus Level 3.7 Platelet Count 37 L Platelet Estimate PLT APPEAR DECREASED Potassium Level 4.0 Red Blood Count 2.83 L Red Cell Distribution Width 23.2 H Sodium Level 140 Total Bilirubin 0.5 Total Protein 8.0 White Blood Count 4.9 Medications Medications Current Medications Insulin Glargine (Lantus) 23 unit QHS SC Last administered on 04/17/16at 20:37 ; Admin Dose 23 UNIT; Start 04/10/16 at 21:00 Ondansetron HCl (Zofran Inj) 4 mg Q6H PRN IV NAUSEA AND/OR VOMITING; Start 04/10/16 at 19:00 Nitroglycerin (Nitroglycerin (Sl Tab) 0.4 Mg) 1 tab Q5M PRN SL CHEST PAIN; Start 04/10/16 at 19:00 Acetaminophen (Tylenol Tab) 650 mg Q6H PRN PO PAIN LEVEL 1-3 OR FEVER Last administered on 04/11/16at 23:01; Admin Dose 650 MG; Start 04/10/16 at 19:00 Acetaminophen/ Hydrocodone Bitart ([place] (5/325)) 1 tab Q6H PRN PO PAIN LEVEL 4 -6 Last administered on 04/14/16at 23:25; Admin Dose 1 TAB; Start 04/10/16 at 19: 00 Acetaminophen/ Hydrocodone Bitart ([place] (5/325)) 2 tab Q6H PRN PO PAIN LEVEL 7 -10 Last administered on 04/18/16at 00:54; Admin Dose 2 TAB; Start 04/10/16 at 19:00 Morphine Sulfate (morphine) 2 mg Q4H PRN IV PAIN LEVEL 7-10 Last administered on 04/18/16at 02:04; Admin Dose 2 MG; Start 04/10/16 at 19:00 Magnesium Hydroxide (Milk Of Mag) 30 ml DAILY PRN PO CONSTIPATION Last administered on 04/17/16at 05:47; Admin Dose 30 ML; Start 04/10/16 at 19:00 Bisacodyl (Dulcolax Supp) 10 mg DAILY PRN [place] CONSTIPATION; Start 04/10/16 at 19 :00 Pantoprazole (Protonix Tab) 40 mg DAILY@06 PO Last administered on 04/18/16at 05:40; Admin Dose 40 MG; Start 04/11/16 at 06:00 Miscellaneous Information 1 ea NOTE XX ; Start 04/10/16 at 19:00 Glucose (Glutose) 15 gm Q15M PRN PO DECREASED GLUCOSE; Start 04/10/16 at 19:00 Glucose (Glutose) 22.5 gm Q15M PRN PO DECREASED GLUCOSE; Start 04/10/16 at 19: 00 Dextrose (D50w Syringe) 25 ml Q15M PRN IV DECREASED GLUCOSE; Start 04/10/16 at 19:00 Dextrose (D50w Syringe) 50 ml Q15M PRN IV DECREASED GLUCOSE; Start 04/10/16 at 19:00 Glucagon (Glucagen) 1 mg Q15M PRN IM DECREASED GLUCOSE; Start 04/10/16 at 19:00 Glucose (Glutose) 15 gm Q15M PRN BUCCAL DECREASED GLUCOSE; Start 04/10/16 at 19 :00 Metoprolol Tartrate (Lopressor) 100 mg BID PO Last administered on 04/18/16 08:41; Admin Dose 100 MG; Start 04/11/16 at 09:00 Docusate Sodium (Colace) 100 mg Q12H PO Last administered on 04/18/16 05:40; Admin Dose 100 MG; Start 04/11/16 at 19:00 Polyethylene Glycol (Miralax) 17 gm DAILY PO Last administered on 04/18/16 08 :40; Admin Dose 17 GM; Start 04/11/16 at 13:00 Amlodipine Besylate (Norvasc) 2.5 mg DAILY PO Last administered on 04/18/16 08:40; Admin Dose 2.5 MG; Start 04/14/16 at 09:00 Lisinopril (Zestril) 5 mg BID PO Last administered on 04/18/16 08:40; Admin Dose 5 MG; Start 04/15/16 at 21:00 Levofloxacin 500 mg 500 mg DAILY@06 PO Last administered on 04/18/16 05:40; Admin Dose 500 MG; Start 04/15/16 at 14:00 Vancomycin HCl/ Sodium Chloride (Vancocin/NS) 500 ml @ 125 mls/hr Q12H IVPB Last administered on 04/18/16at 00:11; Admin Dose 125 MLS/HR; Start 04/17/16 at 12:00 Collagenase (Santyl) 1 applic DAILY TOP Last administered on 04/18/16 08:41; Admin Dose 1 APPLIC; Start 04/17/16 at 16:00 Allopurinol (Zyloprim) 300 mg DAILY PO ; Start 04/18/16 at 09:30 TOY DWYER M.D. Apr 18, 2016 11:08
[2016-04-18] MEDS: SOD CHLORIDE 0.9% 1,000 ML IV SCH (12:48)
[2016-04-18] MEDS: ALLOPURINOL 300 MG TAB PO SCH (12:48)
[2016-04-18] MEDS ORDERED: DIPHENHYDRAMINE 50 MG INJ IV PRN (13:00)
[2016-04-18] MEDS ORDERED: DEXAMETHASONE 10 MG/ML 1 ML INJ IV PRN (13:00)
[2016-04-18] MEDS: DIPHENHYDRAMINE IVPB SCH (13:29)
[2016-04-18] MEDS: [UNRECOGNIZED DRUG - OTHER] IVPB SCH (13:29)
[2016-04-18] MEDS: DEXAMETHASONE IVPB SCH (13:29)
[2016-04-18] MEDS: ONDANSETRON IVPB SCH (13:29)
--- NOTE | 2016-04-18 13:40 | PN ---
Date/Time of Note Date/Time of Note DATE: 04/18/16 TIME: 13:23 Assessment/Plan VTE Prophylaxis VTE Prophylaxis Intervention: SCD's Lines/Catheters IV Catheter Type (from [facility]): [facility] Urinary Cath still in place: No Assessment/Plan Assessment/Plan 55-year-old male with: 1. Hairy cell Leukemia. patient admitted with anemia, acute on chronic, pancytopenia, primarily thrombocytopenic. HIV negative. Appreciate Hematology eval and plan of care. Starting Chemo today Dr Flannery following Counts stable 2. Fever with likely acute infection of his right 1st and 2nd toe. ESR elevated. Afebrile The patient also had a rash, maculopapular. He does have a history of methicillin-resistant Staphylococcus aureus skin and soft-tissue infection years ago requiring extensive debridement of the left upper extremity. MRI foot with osteomyelitis and JOSE J negative Continue Vancomycin and Levaquin per ID Blood cultures NGTD and wound cultures pending. Wound care and Dr Thomas following patient. 3. Diabetes mellitus. A1c back at 7.2 ...Continue current insulin regimen, keeping off glyburide. On Tradjenta Appreciate inclusion special educator recommendations. Patient needs to be compliant with ADA diet. 4. Cardiomegaly, EF 50%. No further episodes of NSVT since yesterday. Continue Lopressor/Bblock Electrolytes stable again today. S/p negative JOSE J 5. Hypertension. Continue beta blockers and Norvasc and increase Lisinopril dose. 6. Constipation: Miralax and colace scheduled and add MOM along with dulcolax prn Prophylaxis. Proton pump inhibitors for GI prophylaxis and SCDs for DVT prophylaxis. DISPOSITION: PICC line in place Starting chemo this afternoon F/u wound care and follow up further ID and Podiatry recs Subjective 24 Hr Interval Summary Free Text/Dictation Patient doing OK Starting 5 days Chemo cycle today for Hairy cell leukemia Exam/Review of Systems Vital Signs Vitals Vital Signs Date Time Temp Pulse Resp B/P Pulse Ox O2 Delivery O2 Flow Rate FiO2 04/18/16 08:27 98.4 87 20 134/87 96 Room Air 04/14/16 11:14 3.0 Intake and Output 04/17/16 04/17/16 04/18/16 15:00 23:00 07:00 Intake Total 1700 ml 1200 ml Output Total 1000 ml 1500 ml Balance 700 ml -300 ml Exam Constitutional: alert, oriented, other (blind ), well developed Respiratory: clear to auscultation, normal air movement Cardiovascular: nl pulses, regular rate and rhythm Gastrointestinal: non-tender, soft Musculoskeletal: other (right foot 2 first toes with non healing DM ulcers ) Extremities: normal pulses 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: MANAGER ANALYTICAL II-XII intact, nl mental status, nl speech, nl strength Results Result Diagram: 04/18/16 0430 04/18/16 0430 Results 24 hrs Laboratory Tests Test 04/17/16 17:00 04/17/16 17:21 04/17/16 20:33 04/18/16 02:31 Stool Occult Blood NEGATIVE Bedside Glucose 166 223 H 102 Test 04/18/16 04:30 04/18/16 07:49 04/18/16 11:05 04/18/16 11:33 Alanine Aminotransferase (ALT/SGPT) 51 Albumin 3.1 L Albumin/Globulin Ratio 0.63 Alkaline Phosphatase 243 H Anion Gap 13 Anisocytosis 3+ Aspartate Amino Transf (AST/SGOT) 36 Blood Morphology Comment Blood Urea Nitrogen 14 Calcium Level 8.3 L Carbon Dioxide Level 27 Chloride Level 104 Creatinine 0.91 Direct Bilirubin 0.00 Globulin 4.90 H Glucose Level 130 Hematocrit 25.9 L Hemoglobin 8.5 L Indirect Bilirubin 0.5 Lymphocytes # 4.5 H Lymphocytes % 92.0 H Magnesium Level 2.1 Mean Corpuscular Hemoglobin 30.2 Mean Corpuscular Hemoglobin Concent 33.0 Mean Corpuscular Volume 91.4 Mean Platelet Volume 8.4 Neutrophils # 0.4 L Neutrophils % 8.0 L Nucleated Red Blood Cells # Nucleated Red Blood Cells % 9.0 H Phosphorus Level 3.7 Platelet Count 37 L Platelet Estimate PLT APPEAR DECREASED Potassium Level 4.0 Red Blood Count 2.83 L Red Cell Distribution Width 23.2 H Sodium Level 140 Total Bilirubin 0.5 Total Protein 8.0 White Blood Count 4.9 Bedside Glucose 117 141 Vancomycin Level Trough 20.3 *H Medications Medications Current Medications Insulin Glargine (Lantus) 23 unit QHS SC Last administered on 04/17/16at 20:37 ; Admin Dose 23 UNIT; Start 04/10/16 at 21:00 Ondansetron HCl (Zofran Inj) 4 mg Q6H PRN IV NAUSEA AND/OR VOMITING; Start 04/10/16 at 19:00 Nitroglycerin (Nitroglycerin (Sl Tab) 0.4 Mg) 1 tab Q5M PRN SL CHEST PAIN; Start 04/10/16 at 19:00 Acetaminophen (Tylenol Tab) 650 mg Q6H PRN PO PAIN LEVEL 1-3 OR FEVER Last administered on 04/11/16at 23:01; Admin Dose 650 MG; Start 04/10/16 at 19:00 Acetaminophen/ Hydrocodone Bitart ([place] (5/325)) 1 tab Q6H PRN PO PAIN LEVEL 4 -6 Last administered on 04/14/16at 23:25; Admin Dose 1 TAB; Start 04/10/16 at 19: 00 Acetaminophen/ Hydrocodone Bitart ([place] (5/325)) 2 tab Q6H PRN PO PAIN LEVEL 7 -10 Last administered on 04/18/16at 00:54; Admin Dose 2 TAB; Start 04/10/16 at 19:00 Morphine Sulfate (morphine) 2 mg Q4H PRN IV PAIN LEVEL 7-10 Last administered on 04/18/16at 11:15; Admin Dose 2 MG; Start 04/10/16 at 19:00 Magnesium Hydroxide (Milk Of Mag) 30 ml DAILY PRN PO CONSTIPATION Last administered on 04/17/16at 05:47; Admin Dose 30 ML; Start 04/10/16 at 19:00 Bisacodyl (Dulcolax Supp) 10 mg DAILY PRN [place] CONSTIPATION; Start 04/10/16 at 19 :00 Pantoprazole (Protonix Tab) 40 mg DAILY@06 PO Last administered on 04/18/16at 05:40; Admin Dose 40 MG; Start 04/11/16 at 06:00 Miscellaneous Information 1 ea NOTE XX ; Start 04/10/16 at 19:00 Glucose (Glutose) 15 gm Q15M PRN PO DECREASED GLUCOSE; Start 04/10/16 at 19:00 Glucose (Glutose) 22.5 gm Q15M PRN PO DECREASED GLUCOSE; Start 04/10/16 at 19: 00 Dextrose (D50w Syringe) 25 ml Q15M PRN IV DECREASED GLUCOSE; Start 04/10/16 at 19:00 Dextrose (D50w Syringe) 50 ml Q15M PRN IV DECREASED GLUCOSE; Start 04/10/16 at 19:00 Glucagon (Glucagen) 1 mg Q15M PRN IM DECREASED GLUCOSE; Start 04/10/16 at 19:00 Glucose (Glutose) 15 gm Q15M PRN BUCCAL DECREASED GLUCOSE; Start 04/10/16 at 19 :00 Metoprolol Tartrate (Lopressor) 100 mg BID PO Last administered on 04/18/16at 08:41; Admin Dose 100 MG; Start 04/11/16 at 09:00 Docusate Sodium (Colace) 100 mg Q12H PO Last administered on 04/18/16at 05:40; Admin Dose 100 MG; Start 04/11/16 at 19:00 Polyethylene Glycol (Miralax) 17 gm DAILY PO Last administered on 04/18/16at 08 :40; Admin Dose 17 GM; Start 04/11/16 at 13:00 Amlodipine Besylate (Norvasc) 2.5 mg DAILY PO Last administered on 04/18/16at 08:40; Admin Dose 2.5 MG; Start 04/14/16 at 09:00 Lisinopril (Zestril) 5 mg BID PO Last administered on 04/18/16at 08:40; Admin Dose 5 MG; Start 04/15/16 at 21:00 Levofloxacin (Levaquin) 500 mg DAILY@06 PO Last administered on 04/18/16at 05: 40; Admin Dose 500 MG; Start 04/15/16 at 14:00 Collagenase (Santyl) 1 applic DAILY TOP Last administered on 04/18/16at 08:41; Admin Dose 1 APPLIC; Start 04/17/16 at 16:00 Allopurinol (Zyloprim) 300 mg DAILY PO Last administered on 04/18/16at 12:48; Admin Dose 300 MG; Start 04/18/16 at 09:30 IV Flush 10 ml 10 ml PRN PRN IV IV PROTOCOL; Start 04/18/16 at 11:30 Ondansetron HCl 8 mg/Dexamethasone 10 mg/ Diphenhydramine HCl 25 mg/Sodium Chloride 55.5 ml @ 110 mls/hr 1230 IVPB ; Start 04/18/16 at 12:30; Stop 04/22 at 13:01 Cladribine 17 mg/ Sodium Chloride 500 ml @ 21 mls/hr 13 IV ; Start 04/18/16 at 13:00; Stop 04/23/16 at 12:49 Sodium Chloride (NS) 1,000 ml @ 75 mls/hr [id number] IV Last administered on at 12:48; Admin Dose 75 MLS/HR; Start 04/18/16 at 12:30 Dexamethasone (Decadron) 10 mg Q4H PRN IV REACTION; Start 04/18/16 at 13:00 Diphenhydramine HCl 25 mg 25 mg Q4H PRN IV ALLERGIC REACTION; Start 04/18/16 at 13:00 Ondansetron HCl 8 mg/Sodium Chloride 54 ml @ 110 mls/hr Q8H PRN IV NAUSEA; Start 04/18/16 at 13:00 Vancomycin HCl/ Sodium Chloride (Vancocin/NS) 250 ml @ 83.333 mls/ hr Q12H IVPB ; Start 04/18/16 at 16:00 LAUREL ANDERSON Apr 18, 2016 13:35
--- NOTE | 2016-04-18 13:56 | CONS ---
Date/Time of Note Date/Time of Note DATE: 04/18/16 TIME: 13:55 Consult Date/Type/Reason Admit Date/Time Apr 10, 2016 at 16:55 Initial Consult Date 04/11/16 Type of Consultation: ID Ordering Provider: LAUREL ANDERSON Subjective no acute events, alert, looks comfortable, no fevers, nad Objective Vital Signs Date Time Temp Pulse Resp B/P Pulse Ox O2 Delivery O2 Flow Rate FiO2 04/18/16 08:27 98.4 87 20 134/87 96 Room Air 04/14/16 11:14 3.0 Intake and Output 04/17/16 04/17/16 04/18/16 15:00 23:00 07:00 Intake Total 1700 ml 1200 ml Output Total 1000 ml 1500 ml Balance 700 ml -300 ml Results/Medications Result Diagram: 04/18/16 0430 04/18/16 0430 Results 24 hrs Laboratory Tests Test 04/17/16 17:00 04/17/16 17:21 04/17/16 20:33 04/18/16 02:31 Stool Occult Blood NEGATIVE Bedside Glucose 166 223 H 102 Test 04/18/16 04:30 04/18/16 07:49 04/18/16 11:05 04/18/16 11:33 Alanine Aminotransferase (ALT/SGPT) 51 Albumin 3.1 L Albumin/Globulin Ratio 0.63 Alkaline Phosphatase 243 H Anion Gap 13 Anisocytosis 3+ Aspartate Amino Transf (AST/SGOT) 36 Blood Morphology Comment Blood Urea Nitrogen 14 Calcium Level 8.3 L Carbon Dioxide Level 27 Chloride Level 104 Creatinine 0.91 Direct Bilirubin 0.00 Globulin 4.90 H Glucose Level 130 Hematocrit 25.9 L Hemoglobin 8.5 L Indirect Bilirubin 0.5 Lymphocytes # 4.5 H Lymphocytes % 92.0 H Magnesium Level 2.1 Mean Corpuscular Hemoglobin 30.2 Mean Corpuscular Hemoglobin Concent 33.0 Mean Corpuscular Volume 91.4 Mean Platelet Volume 8.4 Neutrophils # 0.4 L Neutrophils % 8.0 L Nucleated Red Blood Cells # Nucleated Red Blood Cells % 9.0 H Phosphorus Level 3.7 Platelet Count 37 L Platelet Estimate PLT APPEAR DECREASED Potassium Level 4.0 Red Blood Count 2.83 L Red Cell Distribution Width 23.2 H Sodium Level 140 Total Bilirubin 0.5 Total Protein 8.0 White Blood Count 4.9 Bedside Glucose 117 141 Vancomycin Level Trough 20.3 *H Medications Current Medications Insulin Glargine (Lantus) 23 unit QHS SC Last administered on 04/17/16at 20:37 ; Admin Dose 23 UNIT; Start 04/10/16 at 21:00 Ondansetron HCl (Zofran Inj) 4 mg Q6H PRN IV NAUSEA AND/OR VOMITING; Start 04/10/16 at 19:00 Nitroglycerin (Nitroglycerin (Sl Tab) 0.4 Mg) 1 tab Q5M PRN SL CHEST PAIN; Start 04/10/16 at 19:00 Acetaminophen (Tylenol Tab) 650 mg Q6H PRN PO PAIN LEVEL 1-3 OR FEVER Last administered on 04/11/16at 23:01; Admin Dose 650 MG; Start 04/10/16 at 19:00 Acetaminophen/ Hydrocodone Bitart ([place] (5/325)) 1 tab Q6H PRN PO PAIN LEVEL 4 -6 Last administered on 04/14/16at 23:25; Admin Dose 1 TAB; Start 04/10/16 at 19: 00 Acetaminophen/ Hydrocodone Bitart ([place] (5/325)) 2 tab Q6H PRN PO PAIN LEVEL 7 -10 Last administered on 04/18/16at 00:54; Admin Dose 2 TAB; Start 04/10/16 at 19:00 Morphine Sulfate (morphine) 2 mg Q4H PRN IV PAIN LEVEL 7-10 Last administered on 04/18/16at 11:15; Admin Dose 2 MG; Start 04/10/16 at 19:00 Magnesium Hydroxide (Milk Of Mag) 30 ml DAILY PRN PO CONSTIPATION Last administered on 04/17/16at 05:47; Admin Dose 30 ML; Start 04/10/16 at 19:00 Bisacodyl (Dulcolax Supp) 10 mg DAILY PRN [place] CONSTIPATION; Start 04/10/16 at 19 :00 Pantoprazole (Protonix Tab) 40 mg DAILY@06 PO Last administered on 04/18/16at 05:40; Admin Dose 40 MG; Start 04/11/16 at 06:00 Miscellaneous Information 1 ea NOTE XX ; Start 04/10/16 at 19:00 Glucose (Glutose) 15 gm Q15M PRN PO DECREASED GLUCOSE; Start 04/10/16 at 19:00 Glucose (Glutose) 22.5 gm Q15M PRN PO DECREASED GLUCOSE; Start 04/10/16 at 19: 00 Dextrose (D50w Syringe) 25 ml Q15M PRN IV DECREASED GLUCOSE; Start 04/10/16 at 19:00 Dextrose (D50w Syringe) 50 ml Q15M PRN IV DECREASED GLUCOSE; Start 04/10/16 at 19:00 Glucagon (Glucagen) 1 mg Q15M PRN IM DECREASED GLUCOSE; Start 04/10/16 at 19:00 Glucose (Glutose) 15 gm Q15M PRN BUCCAL DECREASED GLUCOSE; Start 04/10/16 at 19 :00 Metoprolol Tartrate (Lopressor) 100 mg BID PO Last administered on 04/18/16at 08:41; Admin Dose 100 MG; Start 04/11/16 at 09:00 Docusate Sodium (Colace) 100 mg Q12H PO Last administered on 04/18/16at 05:40; Admin Dose 100 MG; Start 04/11/16 at 19:00 Polyethylene Glycol (Miralax) 17 gm DAILY PO Last administered on 04/18/16at 08 :40; Admin Dose 17 GM; Start 04/11/16 at 13:00 Amlodipine Besylate (Norvasc) 2.5 mg DAILY PO Last administered on 04/18/16at 08:40; Admin Dose 2.5 MG; Start 04/14/16 at 09:00 Lisinopril (Zestril) 5 mg BID PO Last administered on 04/18/16at 08:40; Admin Dose 5 MG; Start 04/15/16 at 21:00 Levofloxacin (Levaquin) 500 mg DAILY@06 PO Last administered on 04/18/16at 05: 40; Admin Dose 500 MG; Start 04/15/16 at 14:00 Collagenase (Santyl) 1 applic DAILY TOP Last administered on 04/18/16at 08:41; Admin Dose 1 APPLIC; Start 04/17/16 at 16:00 Allopurinol (Zyloprim) 300 mg DAILY PO Last administered on 04/18/16at 12:48; Admin Dose 300 MG; Start 04/18/16 at 09:30 IV Flush 10 ml 10 ml PRN PRN IV IV PROTOCOL; Start 04/18/16 at 11:30 Ondansetron HCl 8 mg/Dexamethasone 10 mg/ Diphenhydramine HCl 25 mg/Sodium Chloride 55.5 ml @ 110 mls/hr 1230 IVPB Last administered on 04/18/16at 13:29 ; Admin Dose 110 MLS/HR; Start 04/18/16 at 12:30; Stop 04/22/16 at 13:01 Cladribine 17 mg/ Sodium Chloride 500 ml @ 21 mls/hr 13 IV ; Start 04/18/16 at 13:00; Stop 04/23/16 at 12:49 Sodium Chloride (NS) 1,000 ml @ 75 mls/hr [id number] IV Last administered on at 12:48; Admin Dose 75 MLS/HR; Start 04/18/16 at 12:30 Dexamethasone (Decadron) 10 mg Q4H PRN IV REACTION; Start 04/18/16 at 13:00 Diphenhydramine HCl 25 mg 25 mg Q4H PRN IV ALLERGIC REACTION; Start 04/18/16 at 13:00 Ondansetron HCl 8 mg/Sodium Chloride 54 ml @ 110 mls/hr Q8H PRN IV NAUSEA; Start 04/18/16 at 13:00 Vancomycin HCl/ Sodium Chloride (Vancocin/NS) 250 ml @ 83.333 mls/ hr Q12H IVPB ; Start 04/18/16 at 16:00 Assessment/Plan Chief Complaint/Hosp Course ANTIMICROBIALS: 1. Vancomycin. 2. Levaquin. Indwellings: LUE PICC 04/18/16 PHYSICAL EXAMINATION: GENERAL: Obese, well-developed, middle-aged man who is awake, in no distress. HEENT: Head atraumatic, normocephalic. Sclerae anicteric. Buccal mucosa pink. NECK: Supple. Trachea midline. LUNGS: Chest rise symmetrical. Breath sounds clear, diminished at bases. HEART: S1, S2. ABDOMEN: Soft. Bowel tones present. EXTREMITIES: With right foot edema ASSESSMENT: 1. 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 2. Systemic inflammatory response syndrome with fever on admission, elevated ESR, significant thrombocytopenia and anemia. The patient is being followed by hematology team, status post CT-guided bone marrow biopsy. 3. Diabetes. 4. Hypertension. 5. Legally blind. 6. Hairy cell leukemia PLAN: Clinically unchanged, continue abx, plan for chemotherapy tonight, onc/ podiatry rec-s staff Problems: JUVENAL SANCHEZ NP Apr 18, 2016 13:56
--- NOTE | 2016-04-18 14:13 | RADRPT ---
PROCEDURE: Ultrasound guidance for placement of needle in left upper extremity vein. CLINICAL INDICATION: Venous access. TECHNIQUE: Limited sonography of the left upper extremity was performed. Ultrasound images were recorded and s tored in the patient's medical record. COMPARISON: None. FINDINGS: The ultrasound images demonstrate a patent left upper extremity vein. The PICC line was inserted by the PICC line nurse. IMPRESSION: 1. Ultrasound guidance for a needle placement in a left upper extremity vein. 2. The left upper extremity vein is patent. RPTAT: QQ .Guzman Sifuentes MD, MD Date Time Electronically viewed and signed by .Guzman Sifuentes MD, MD on 04/18/2016 11:47 .R/
[2016-04-18] MEDS: CLADRIBINE IV SCH (14:18)
[2016-04-18] MEDS: SOD CHLORIDE 0.9% IV SCH (14:18)
[2016-04-18] MEDS: VANCOMYCIN 1.5 GM in SOD CHLORIDE 0.9% 250 ML IVPB SCH (16:57)
[2016-04-18] MEDS: INSULIN GLARGINE [LANtus] 3 ML PEN SC SCH (20:20)
[2016-04-19] VITALS (7 sets, daily range): BP systolic 119–153; BP diastolic 71–88; PULSE 80–89; RESP 17–20
[2016-04-19] MEDS: HYDROCODONE/APAP (5/325) TAB PO PRN ×4 (01:49→22:41)
[2016-04-19] MEDS: SOD CHLORIDE 0.9% 1,000 ML IV SCH ×3 (01:49→22:41)
[2016-04-19] MEDS: VANCOMYCIN 1.5 GM in SOD CHLORIDE 0.9% 250 ML IVPB SCH ×2 (04:26→16:25)
[2016-04-19] MEDS: morphine 2 MG INJ IV PRN ×4 (05:36→19:00)
[2016-04-19] MEDS: PANTOPRAZOLE (EC) 40 MG TAB PO SCH (05:36)
[2016-04-19] MEDS: LEVOFLOXACIN 500 MG TAB PO SCH (05:36)
[2016-04-19] MEDS: DOCUSATE SODIUM 100 MG CAP PO SCH ×2 (05:36→18:12)
[2016-04-19] MEDS: INSULIN ASPART [NOVOLOG] 3 ML PEN SC SCH ×7 (08:34→20:17)
[2016-04-19] MEDS: ALLOPURINOL 300 MG TAB PO SCH (08:47)
[2016-04-19] MEDS: AMLODIPINE 2.5 MG TAB PO SCH (08:47)
[2016-04-19] MEDS: METOPROLOL 100 MG TAB PO SCH ×2 (08:47→20:19)
[2016-04-19] MEDS: POLYETHYLENE GLYCOL 17 GM PACKET PO SCH (08:48)
[2016-04-19] MEDS: LISINOPRIL 5 MG TAB PO SCH ×2 (08:48→20:18)
[2016-04-19] MEDS: COLLAGENASE 30 GM TUBE TOP SCH (08:48)
--- NOTE | 2016-04-19 08:51 | CONS ---
Date/Time of Note Date/Time of Note DATE: 04/19/16 TIME: 08:48 Assessment/Plan Assessment/Plan Chief Complaint/Hosp Course 55-year-old gentleman with multiple medical problems including insulin dependant DM (not compliant), legal blindness at least for the past 6 months, hypertension, cardiomegaly with a chronic rt first and second toe infection, who initially presented with Left sided chest pain Initial labs also revealed pancytopenia with a Hg 6.7 and platelets in 30's. 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 Problems: Additional Assessment/Plan -Pt is now day 2 of cladribine 0.14mg/kg/day continues IV infusion x 5 days. continue chemotherapy even while patient is on antibiotics. 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 we have to treat the underlying leukemia to help him fight his multiple chronic infections. will continue chemotherapy -given patient is CD 20 positive will give a dose of Rituxan after cladribine infusion is done - hemolysis unlikely with high haptoglobin, normal LDH and peripheral smear without schistocytes. -f/u blood cultures as pt appears to have a disseminated infection which may be the cause of this severe anemia. cultures are thus far negative -allopurinol started as prophylaxis for tumor lysis syndrome Approximately 40 min were spent at patient's bedside and in coordination of his care Consultation Date/Type/Reason Admit Date/Time Apr 10, 2016 at 16:55 Initial Consult Date 04/11/16 Type of Consultation: hematology Reason for Consultation hairy cell leukemia Referring Provider: LAUREL ANDERSON 24 HR Interval Summary Free Text/Dictation patient states he feels much better. had a bm 2 days ago. tolerating chemotherapy well thus far Exam/Review of Systems Vital Signs Vitals Vital Signs Date Time Temp Pulse Resp B/P Pulse Ox O2 Delivery O2 Flow Rate FiO2 04/19/16 05:41 98.2 86 18 140/88 93 Room Air Intake and Output 04/18/16 04/18/16 04/19/16 15:00 23:00 07:00 Intake Total 55.5 ml 2120 ml 2881 ml Output Total 1200 ml 2000 ml Balance 55.5 ml 920 ml 881 ml Exam Constitutional: alert, oriented Psych: no complaints Head: normocephalic Eyes: nl conjunctiva, other (bilateral blindness) ENMT: nl external ears & nose, nl lips & teeth Neck: supple Respiratory: clear to auscultation Cardiovascular: nl pulses, regular rate and rhythm Gastrointestinal: soft Musculoskeletal: nl extremities to inspection, nl gait and stance Extremities: normal pulses Results Result Diagram: 04/18/16 04304/18/16 0430 Results 24 hrs Laboratory Tests Test 04/18/16 11:05 04/18/16 11:33 04/18/16 17:18 04/18/16 20:16 Vancomycin Level Trough 20.3 *H Bedside Glucose 141 141 229 H Test 04/19/16 01:50 04/19/16 08:25 Bedside Glucose 283 H 271 H Medications Medications Current Medications Insulin Glargine (Lantus) 23 unit QHS SC Last administered on 04/18/16at 20:20 ; Admin Dose 23 UNIT; Start 04/10/16 at 21:00 Ondansetron HCl (Zofran Inj) 4 mg Q6H PRN IV NAUSEA AND/OR VOMITING; Start 04/10/16 at 19:00 Nitroglycerin (Nitroglycerin (Sl Tab) 0.4 Mg) 1 tab Q5M PRN SL CHEST PAIN; Start 04/10/16 at 19:00 Acetaminophen (Tylenol Tab) 650 mg Q6H PRN PO PAIN LEVEL 1-3 OR FEVER Last administered on 04/11/16at 23:01; Admin Dose 650 MG; Start 04/10/16 at 19:00 Acetaminophen/ Hydrocodone Bitart ([place] (5/325)) 1 tab Q6H PRN PO PAIN LEVEL 4 -6 Last administered on 04/14/16at 23:25; Admin Dose 1 TAB; Start 04/10/16 at 19: 00 Acetaminophen/ Hydrocodone Bitart ([place] (5/325)) 2 tab Q6H PRN PO PAIN LEVEL 7 -10 Last administered on 04/19/16at 01:49; Admin Dose 2 TAB; Start 04/10/16 at 19:00 Morphine Sulfate (morphine) 2 mg Q4H PRN IV PAIN LEVEL 7-10 Last administered on 04/19/16at 05:36; Admin Dose 2 MG; Start 04/10/16 at 19:00 Magnesium Hydroxide (Milk Of Mag) 30 ml DAILY PRN PO CONSTIPATION Last administered on 04/17/16at 05:47; Admin Dose 30 ML; Start 04/10/16 at 19:00 Bisacodyl (Dulcolax Supp) 10 mg DAILY PRN [place] CONSTIPATION; Start 04/10/16 at 19 :00 Pantoprazole (Protonix Tab) 40 mg DAILY@06 PO Last administered on 04/19/16at 05:36; Admin Dose 40 MG; Start 04/11/16 at 06:00 Miscellaneous Information 1 ea NOTE XX ; Start 04/10/16 at 19:00 Glucose (Glutose) 15 gm Q15M PRN PO DECREASED GLUCOSE; Start 04/10/16 at 19:00 Glucose (Glutose) 22.5 gm Q15M PRN PO DECREASED GLUCOSE; Start 04/10/16 at 19: 00 Dextrose (D50w Syringe) 25 ml Q15M PRN IV DECREASED GLUCOSE; Start 04/10/16 at 19:00 Dextrose (D50w Syringe) 50 ml Q15M PRN IV DECREASED GLUCOSE; Start 04/10/16 at 19:00 Glucagon (Glucagen) 1 mg Q15M PRN IM DECREASED GLUCOSE; Start 04/10/16 at 19:00 Glucose (Glutose) 15 gm Q15M PRN BUCCAL DECREASED GLUCOSE; Start 04/10/16 at 19 :00 Metoprolol Tartrate (Lopressor) 100 mg BID PO Last administered on 04/18/16at 20:19; Admin Dose 100 MG; Start 04/11/16 at 09:00 Docusate Sodium (Colace) 100 mg Q12H PO Last administered on 04/19/16at 05:36; Admin Dose 100 MG; Start 04/11/16 at 19:00 Polyethylene Glycol (Miralax) 17 gm DAILY PO Last administered on 04/18/16at 08 :40; Admin Dose 17 GM; Start 04/11/16 at 13:00 Amlodipine Besylate (Norvasc) 2.5 mg DAILY PO Last administered on 04/18/16at 08:40; Admin Dose 2.5 MG; Start 04/14/16 at 09:00 Lisinopril (Zestril) 5 mg BID PO Last administered on 04/18/16at 20:19; Admin Dose 5 MG; Start 04/15/16 at 21:00 Levofloxacin (Levaquin) 500 mg DAILY@06 PO Last administered on 04/19/16at 05: 36; Admin Dose 500 MG; Start 04/15/16 at 14:00 Collagenase (Santyl) 1 applic DAILY TOP Last administered on 04/18/16at 08:41; Admin Dose 1 APPLIC; Start 04/17/16 at 16:00 Allopurinol (Zyloprim) 300 mg DAILY PO Last administered on 04/18/16at 12:48; Admin Dose 300 MG; Start 04/18/16 at 09:30 IV Flush 10 ml 10 ml PRN PRN IV IV PROTOCOL; Start 04/18/16 at 11:30 Ondansetron HCl 8 mg/Dexamethasone 10 mg/ Diphenhydramine HCl 25 mg/Sodium Chloride 55.5 ml @ 110 mls/hr 1230 IVPB Last administered on 04/18/16at 13:29 ; Admin Dose 110 MLS/HR; Start 04/18/16 at 12:30; Stop 04/22/16 at 13:01 Cladribine 17 mg/ Sodium Chloride 500 ml @ 21 mls/hr 13 IV Last administered on 04/18/16at 14:18; Admin Dose 21 MLS/HR; Start 04/18/16 at 13:00; Stop 04/23 at 12:49 Sodium Chloride (NS) 1,000 ml @ 75 mls/hr [id number] IV Last administered on at 01:49; Admin Dose 75 MLS/HR; Start 04/18/16 at 12:30 Dexamethasone (Decadron) 10 mg Q4H PRN IV REACTION; Start 04/18/16 at 13:00 Diphenhydramine HCl 25 mg 25 mg Q4H PRN IV ALLERGIC REACTION; Start 04/18/16 at 13:00 Ondansetron HCl 8 mg/Sodium Chloride 54 ml @ 110 mls/hr Q8H PRN IV NAUSEA; Start 04/18/16 at 13:00 Vancomycin HCl/ Sodium Chloride (Vancocin/NS) 250 ml @ 83.333 mls/ hr Q12H IVPB Last administered on 04/19/16at 04:26; Admin Dose 83.333 MLS/HR; Start at 16:00 TOY DWYER M.D. Apr 19, 2016 08:51
--- NOTE | 2016-04-19 10:01 | PN ---
Date/Time of Note Date/Time of Note DATE: 04/19/16 TIME: 09:57 Assessment/Plan VTE Prophylaxis VTE Prophylaxis Intervention: SCD's Lines/Catheters IV Catheter Type (from Nrs): PICC Line Central line still needed: Yes (for chemo ) Urinary Cath still in place: No Assessment/Plan Assessment/Plan 55-year-old male with: 1. Hairy cell Leukemia. patient admitted with anemia, acute on chronic, pancytopenia, primarily thrombocytopenic. HIV negative. Appreciate Hematology eval and plan of care. On Chemo D#2 /5 Dr Flannery following Counts unchanged 2. Fever with likely acute infection of his right 1st and 2nd toe. ESR elevated. Afebrile The patient also had a rash, maculopapular. He does have a history of methicillin-resistant Staphylococcus aureus skin and soft-tissue infection years ago requiring extensive debridement of the left upper extremity. MRI foot with osteomyelitis and JOSE J negative Continue Vancomycin and Levaquin per ID Blood cultures NGTD and wound cultures pending. Wound care and Dr Thomas following patient. 3. Diabetes mellitus. A1c back at 7.2 ...Continue current insulin regimen, keeping off glyburide. On Tradjenta Appreciate clinical systems educator recommendations. Patient needs to be compliant with ADA diet. 4. Cardiomegaly, EF 50%. No further episodes of NSVT since yesterday. Continue Lopressor/Bblock Electrolytes stable again today. S/p negative JOSE J 5. Hypertension. Continue beta blockers and Norvasc and increase Lisinopril dose. 6. Constipation, relieved: continue Miralax and colace scheduled and add MOM along with dulcolax prn. Prophylaxis. Proton pump inhibitors for GI prophylaxis and SCDs for DVT prophylaxis. DISPOSITION: On chemo as of yesterday F/u wound care and follow up further ID and Podiatry recs Subjective 24 Hr Interval Summary Free Text/Dictation Patient doing well No complaints today and tolerating chemotherapy so far Exam/Review of Systems Vital Signs Vitals Vital Signs Date Time Temp Pulse Resp B/P Pulse Ox O2 Delivery O2 Flow Rate FiO2 04/19/16 05:41 98.2 86 18 140/88 93 Room Air Intake and Output 04/18/16 04/18/16 04/19/16 15:00 23:00 07:00 Intake Total 55.5 ml 2120 ml 2881 ml Output Total 1200 ml 2000 ml Balance 55.5 ml 920 ml 881 ml Exam Constitutional: alert, oriented, well developed Respiratory: clear to auscultation, normal air movement Cardiovascular: regular rate and rhythm Gastrointestinal: non-tender, soft Musculoskeletal: other (right great toe and 2nd toe DM ulceration. 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, nl mental status, nl speech, nl strength Results Result Diagram: 04/18/1642904/18/16 0430 Results 24 hrs Laboratory Tests Test 04/18/16 11:05 04/18/16 11:33 04/18/16 17:18 04/18/16 20:16 Vancomycin Level Trough 20.3 *H Bedside Glucose 141 141 229 H Test 04/19/16 01:50 04/19/16 08:25 Bedside Glucose 283 H 271 H Medications Medications Current Medications Insulin Glargine (Lantus) 23 unit QHS SC Last administered on 04/18/16at 20:20 ; Admin Dose 23 UNIT; Start 04/10/16 at 21:00 Ondansetron HCl (Zofran Inj) 4 mg Q6H PRN IV NAUSEA AND/OR VOMITING; Start 04/10/16 at 19:00 Nitroglycerin (Nitroglycerin (Sl Tab) 0.4 Mg) 1 tab Q5M PRN SL CHEST PAIN; Start 04/10/16 at 19:00 Acetaminophen (Tylenol Tab) 650 mg Q6H PRN PO PAIN LEVEL 1-3 OR FEVER Last administered on 04/11/16at 23:01; Admin Dose 650 MG; Start 04/10/16 at 19:00 Acetaminophen/ Hydrocodone Bitart ([place] (5/325)) 1 tab Q6H PRN PO PAIN LEVEL 4 -6 Last administered on 04/14/16at 23:25; Admin Dose 1 TAB; Start 04/10/16 at 19: 00 Acetaminophen/ Hydrocodone Bitart ([place] (5/325)) 2 tab Q6H PRN PO PAIN LEVEL 7 -10 Last administered on 04/19/16at 08:46; Admin Dose 2 TAB; Start 04/10/16 at 19:00 Morphine Sulfate (morphine) 2 mg Q4H PRN IV PAIN LEVEL 7-10 Last administered on 04/19/16at 05:36; Admin Dose 2 MG; Start 04/10/16 at 19:00 Magnesium Hydroxide (Milk Of Mag) 30 ml DAILY PRN PO CONSTIPATION Last administered on 04/17/16at 05:47; Admin Dose 30 ML; Start 04/10/16 at 19:00 Bisacodyl (Dulcolax Supp) 10 mg DAILY PRN [place]STIPATION; Start 04/10/16 at 19 :00 Pantoprazole (Protonix Tab) 40 mg DAILY@06 PO Last administered on 04/19/16at 05:36; Admin Dose 40 MG; Start 04/11/16 at 06:00 Miscellaneous Information 1 ea NOTE XX ; Start 04/10/16 at 19:00 Glucose (Glutose) 15 gm Q15M PRN PO DECREASED GLUCOSE; Start 04/10/16 at 19:00 Glucose (Glutose) 22.5 gm Q15M PRN PO DECREASED GLUCOSE; Start 04/10/16 at 19: 00 Dextrose (D50w Syringe) 25 ml Q15M PRN IV DECREASED GLUCOSE; Start 04/10/16 at 19:00 Dextrose (D50w Syringe) 50 ml Q15M PRN IV DECREASED GLUCOSE; Start 04/10/16 at 19:00 Glucagon (Glucagen) 1 mg Q15M PRN IM DECREASED GLUCOSE; Start 04/10/16 at 19:00 Glucose (Glutose) 15 gm Q15M PRN BUCCAL DECREASED GLUCOSE; Start 04/10/16 at 19 :00 Metoprolol Tartrate (Lopressor) 100 mg BID PO Last administered on 04/19/16at 08:47; Admin Dose 100 MG; Start 04/11/16 at 09:00 Docusate Sodium (Colace) 100 mg Q12H PO Last administered on 04/19/16at 05:36; Admin Dose 100 MG; Start 04/11/16 at 19:00 Polyethylene Glycol (Miralax) 17 gm DAILY PO Last administered on 04/19/16at 08 :48; Admin Dose 17 GM; Start 04/11/16 at 13:00 Amlodipine Besylate (Norvasc) 2.5 mg DAILY PO Last administered on 04/19/16at 08:47; Admin Dose 2.5 MG; Start 04/14/16 at 09:00 Lisinopril (Zestril) 5 mg BID PO Last administered on 04/19/16at 08:48; Admin Dose 5 MG; Start 04/15/16 at 21:00 Levofloxacin (Levaquin) 500 mg DAILY@06 PO Last administered on 04/19/16at 05: 36; Admin Dose 500 MG; Start 04/15/16 at 14:00 Collagenase (Santyl) 1 applic DAILY TOP Last administered on 04/19/16at 08:48; Admin Dose 1 APPLIC; Start 04/17/16 at 16:00 Allopurinol (Zyloprim) 300 mg DAILY PO Last administered on 04/19/16at 08:47; Admin Dose 300 MG; Start 04/18/16 at 09:30 IV Flush 10 ml 10 ml PRN PRN IV IV PROTOCOL; Start 04/18/16 at 11:30 Ondansetron HCl 8 mg/Dexamethasone 10 mg/ Diphenhydramine HCl 25 mg/Sodium Chloride 55.5 ml @ 110 mls/hr 1230 IVPB Last administered on 04/18/16at 13:29 ; Admin Dose 110 MLS/HR; Start 04/18/16 at 12:30; Stop 04/22/16 at 13:01 Cladribine 17 mg/ Sodium Chloride 500 ml @ 21 mls/hr 13 IV Last administered on 04/18/16at 14:18; Admin Dose 21 MLS/HR; Start 04/18/16 at 13:00; Stop 04/23 at 12:49 Sodium Chloride (NS) 1,000 ml @ 75 mls/hr [id number] IV Last administered on at 01:49; Admin Dose 75 MLS/HR; Start 04/18/16 at 12:30 Dexamethasone (Decadron) 10 mg Q4H PRN IV REACTION; Start 04/18/16 at 13:00 Diphenhydramine HCl 25 mg 25 mg Q4H PRN IV ALLERGIC REACTION; Start 04/18/16 at 13:00 Ondansetron HCl 8 mg/Sodium Chloride 54 ml @ 110 mls/hr Q8H PRN IV NAUSEA; Start 04/18/16 at 13:00 Vancomycin HCl/ Sodium Chloride (Vancocin/NS) 250 ml @ 83.333 mls/ hr Q12H IVPB Last administered on 04/19/16at 04:26; Admin Dose 83.333 MLS/HR; Start at 16:00 LAUREL ANDERSON Apr 19, 2016 10:01
[2016-04-19 11:36] LABS: HEMATOCRIT 27.1 % (42.0-52.0); HEMOGLOBIN 8.9 g/dl (14.0-18.0); MEAN CORPUSCULAR HEMOGLOBIN 30.1 pg (29.0-33.0); MEAN CORPUSCULAR HGB CONC 32.7 g/dl (32.0-37.0); MEAN CORPUSCULAR VOLUME 92.1 fl (82.0-101.0); MEAN PLATELET VOLUME 8.2 fl (7.4-10.4); PLATELET COUNT 42 10^3/UL (140-440); RED BLOOD COUNT 2.94 10^6/ul (4.70-6.10); RED CELL DISTRIBUTION WIDTH 23.2 % (11.5-14.5); UNCORRECTED WBC 5.7 10^3/ul (4.8-10.8); WHITE BLOOD COUNT 5.7 10^3/ul (4.8-10.8)
[2016-04-19 11:48] LABS: CONDITION 1; LH ANALYZER COMMENTS 1
[2016-04-19 11:49] LABS: INR 1.16; PROTIME 14.8 Sec (12.2-14.2); PT RATIO 1.2
[2016-04-19 11:56] LABS: ALBUMIN 3.5 g/dl (3.3-4.9)
[2016-04-19 11:57] LABS: POTASSIUM 4.6 mmol/L (3.5-5.1)
[2016-04-19 11:59] LABS: ALBUMIN/GLOBULIN RATIO 0.67; BILIRUBIN,INDIRECT 0.4 mg/dl (0-1.1); BILIRUBIN,TOTAL 0.4 mg/dl (0.2-1.3); CREATININE 0.94 mg/dl (0.61-1.24); TOTAL PROTEIN 8.7 g/dl (6.1-8.1)
[2016-04-19 12:00] LABS: CALCIUM 8.6 mg/dl (8.4-10.2); MAGNESIUM 2.3 mg/dl (1.7-2.5); PHOSPHORUS 3.1 mg/dl (2.5-4.9)
--- NOTE | 2016-04-19 13:11 | CONS ---
Date/Time of Note Date/Time of Note DATE: 04/19/16 TIME: 13:10 Assessment/Plan Assessment/Plan Chief Complaint/Hosp Course No acute changes, alert, feels good, no fevers, nad ANTIMICROBIALS: 1. Vancomycin. 2. Levaquin. Indwellings: LUE PICC 04/18/16 PHYSICAL EXAMINATION: GENERAL: Obese, well-developed, middle-aged man who is awake, in no distress. HEENT: Head atraumatic, normocephalic. Sclerae anicteric. Buccal mucosa pink. NECK: Supple. Trachea midline. LUNGS: Chest rise symmetrical. Breath sounds clear, diminished at bases. HEART: S1, S2. ABDOMEN: Soft. Bowel tones present. EXTREMITIES: With right foot edema ASSESSMENT: 1. 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 2. Systemic inflammatory response syndrome with fever on admission, elevated ESR, significant thrombocytopenia and anemia. The patient is being followed by hematology team, status post CT-guided bone marrow biopsy. 3. Diabetes. 4. Hypertension. 5. Legally blind. 6. Hairy cell leukemia PLAN: Clinically stable, continue abx, chemotherapy per oncology, podiatry rec- s [facility] staff Problems: Consultation Date/Type/Reason Admit Date/Time Apr 10, 2016 at 16:55 Initial Consult Date 04/11/16 Type of Consultation: ID Referring Provider: LAUREL ANDERSON 24 HR Interval Summary Constitutional: no complaints Exam/Review of Systems Vital Signs Vitals Vital Signs Date Time Temp Pulse Resp B/P Pulse Ox O2 Delivery O2 Flow Rate FiO2 04/19/16 08:00 97.7 80 18 119/71 97 Room Air Intake and Output 04/18/16 04/18/16 04/19/16 15:00 23:00 07:00 Intake Total 55.5 ml 2120 ml 2881 ml Output Total 1200 ml 2000 ml Balance 55.5 ml 920 ml 881 ml Results Result Diagram: 04/19/16 1100 04/19/16 1100 Results 24 hrs Laboratory Tests Test 04/18/16 17:18 04/18/16 20:16 04/19/16 01:50 04/19/16 08:25 Bedside Glucose 141 229 H 283 H 271 H Test 04/19/16 11:00 04/19/16 12:07 Activated Partial Thromboplast Time Pending Alanine Aminotransferase (ALT/SGPT) 58 Albumin 3.5 Albumin/Globulin Ratio 0.67 Alkaline Phosphatase 268 H Anion Gap 16 Aspartate Amino Transf (AST/SGOT) 42 Blood Morphology Comment Blood Urea Nitrogen 18 Calcium Level 8.6 Carbon Dioxide Level 25 Chloride Level 103 Creatinine 0.94 Direct Bilirubin 0.00 Globulin 5.20 H Glucose Level 251 #H Hematocrit 27.1 L Hemoglobin 8.9 L INR International Normalized Ratio 1.16 Indirect Bilirubin 0.4 Magnesium Level 2.3 Mean Corpuscular Hemoglobin 30.1 Mean Corpuscular Hemoglobin Concent 32.7 Mean Corpuscular Volume 92.1 Mean Platelet Volume 8.2 Phosphorus Level 3.1 Platelet Count 42 L Potassium Level 4.6 Prothrombin Time 14.8 H Prothrombin Time Ratio 1.2 Red Blood Count 2.94 L Red Cell Distribution Width 23.2 H Sodium Level 139 Total Bilirubin 0.4 Total Protein 8.7 H White Blood Count 5.7 Bedside Glucose 209 Medications Medications Current Medications Insulin Glargine (Lantus) 23 unit QHS SC Last administered on 04/18/16at 20:20 ; Admin Dose 23 UNIT; Start 04/10/16 at 21:00 Ondansetron HCl (Zofran Inj) 4 mg Q6H PRN IV NAUSEA AND/OR VOMITING; Start 04/10/16 at 19:00 Nitroglycerin (Nitroglycerin (Sl Tab) 0.4 Mg) 1 tab Q5M PRN SL CHEST PAIN; Start 04/10/16 at 19:00 Acetaminophen (Tylenol Tab) 650 mg Q6H PRN PO PAIN LEVEL 1-3 OR FEVER Last administered on 04/11/16at 23:01; Admin Dose 650 MG; Start 04/10/16 at 19:00 Acetaminophen/ Hydrocodone Bitart ([place] (5/325)) 1 tab Q6H PRN PO PAIN LEVEL 4 -6 Last administered on 04/14/16at 23:25; Admin Dose 1 TAB; Start 04/10/16 at 19: 00 Acetaminophen/ Hydrocodone Bitart ([place] (5/325)) 2 tab Q6H PRN PO PAIN LEVEL 7 -10 Last administered on 04/19/16at 08:46; Admin Dose 2 TAB; Start 04/10/16 at 19:00 Morphine Sulfate (morphine) 2 mg Q4H PRN IV PAIN LEVEL 7-10 Last administered on 04/19/16at 10:56; Admin Dose 2 MG; Start 04/10/16 at 19:00 Magnesium Hydroxide (Milk Of Mag) 30 ml DAILY PRN PO CONSTIPATION Last administered on 04/17/16at 05:47; Admin Dose 30 ML; Start 04/10/16 at 19:00 Bisacodyl (Dulcolax Supp) 10 mg DAILY PRN [place] CONSTIPATION; Start 04/10/16 at 19 :00 Pantoprazole (Protonix Tab) 40 mg DAILY@06 PO Last administered on 04/19/16at 05:36; Admin Dose 40 MG; Start 04/11/16 at 06:00 Miscellaneous Information 1 ea NOTE XX ; Start 04/10/16 at 19:00 Glucose (Glutose) 15 gm Q15M PRN PO DECREASED GLUCOSE; Start 04/10/16 at 19:00 Glucose (Glutose) 22.5 gm Q15M PRN PO DECREASED GLUCOSE; Start 04/10/16 at 19: 00 Dextrose (D50w Syringe) 25 ml Q15M PRN IV DECREASED GLUCOSE; Start 04/10/16 at 19:00 Dextrose (D50w Syringe) 50 ml Q15M PRN IV DECREASED GLUCOSE; Start 04/10/16 at 19:00 Glucagon (Glucagen) 1 mg Q15M PRN IM DECREASED GLUCOSE; Start 04/10/16 at 19:00 Glucose (Glutose) 15 gm Q15M PRN BUCCAL DECREASED GLUCOSE; Start 04/10/16 at 19 :00 Metoprolol Tartrate (Lopressor) 100 mg BID PO Last administered on 04/19/16at 08:47; Admin Dose 100 MG; Start 04/11/16 at 09:00 Docusate Sodium (Colace) 100 mg Q12H PO Last administered on 04/19/16at 05:36; Admin Dose 100 MG; Start 04/11/16 at 19:00 Polyethylene Glycol (Miralax) 17 gm DAILY PO Last administered on 04/19/16at 08 :48; Admin Dose 17 GM; Start 04/11/16 at 13:00 Amlodipine Besylate (Norvasc) 2.5 mg DAILY PO Last administered on 04/19/16at 08:47; Admin Dose 2.5 MG; Start 04/14/16 at 09:00 Lisinopril (Zestril) 5 mg BID PO Last administered on 04/19/16at 08:48; Admin Dose 5 MG; Start 04/15/16 at 21:00 Levofloxacin (Levaquin) 500 mg DAILY@06 PO Last administered on 04/19/16at 05: 36; Admin Dose 500 MG; Start 04/15/16 at 14:00 Collagenase (Santyl) 1 applic DAILY TOP Last administered on 04/19/16at 08:48; Admin Dose 1 APPLIC; Start 04/17/16 at 16:00 Allopurinol (Zyloprim) 300 mg DAILY PO Last administered on 04/19/16at 08:47; Admin Dose 300 MG; Start 04/18/16 at 09:30 IV Flush 10 ml 10 ml PRN PRN IV IV PROTOCOL; Start 04/18/16 at 11:30 Ondansetron HCl 8 mg/Dexamethasone 10 mg/ Diphenhydramine HCl 25 mg/Sodium Chloride 55.5 ml @ 110 mls/hr 1230 IVPB Last administered on 04/18/16at 13:29 ; Admin Dose 110 MLS/HR; Start 04/18/16 at 12:30; Stop 04/22/16 at 13:01 Cladribine 17 mg/ Sodium Chloride 500 ml @ 21 mls/hr 13 IV Last administered on 04/18/16at 14:18; Admin Dose 21 MLS/HR; Start 04/18/16 at 13:00; Stop 04/23 at 12:49 Sodium Chloride (NS) 1,000 ml @ 75 mls/hr [id number] IV Last administered on at 01:49; Admin Dose 75 MLS/HR; Start 04/18/16 at 12:30 Dexamethasone (Decadron) 10 mg Q4H PRN IV REACTION; Start 04/18/16 at 13:00 Diphenhydramine HCl 25 mg 25 mg Q4H PRN IV ALLERGIC REACTION; Start 04/18/16 at 13:00 Ondansetron HCl 8 mg/Sodium Chloride 54 ml @ 110 mls/hr Q8H PRN IV NAUSEA; Start 04/18/16 at 13:00 Vancomycin HCl/ Sodium Chloride (Vancocin/NS) 250 ml @ 83.333 mls/ hr Q12H IVPB Last administered on 04/19/16at 04:26; Admin Dose 83.333 MLS/HR; Start at 16:00 JUVENAL SANCHEZ NP Apr 19, 2016 13:11
[2016-04-19 13:29] LABS: PARTIAL THROMBOPLASTIN TIME 28.3 Sec (25.0-35.0)
[2016-04-19 13:39] LABS: NEUTROPHIL # 0.7 10^3/ul (1.6-7.5)
[2016-04-19 13:40] LABS: PLATELET ESTIMATE PLT APPEAR DECREASED
[2016-04-19] MEDS: DEXAMETHASONE IVPB SCH (13:49)
[2016-04-19] MEDS: ONDANSETRON IVPB SCH (13:49)
[2016-04-19] MEDS: DIPHENHYDRAMINE IVPB SCH (13:49)
[2016-04-19] MEDS: [UNRECOGNIZED DRUG - OTHER] IVPB SCH (13:49)
[2016-04-19] MEDS: CLADRIBINE IV SCH (14:56)
[2016-04-19] MEDS: SOD CHLORIDE 0.9% IV SCH (14:56)
[2016-04-19] MEDS: INSULIN GLARGINE [LANtus] 3 ML PEN SC SCH (20:18)
[2016-04-20] VITALS (12 sets, daily range): BP systolic 132–160; BP diastolic 2–99; PULSE 76–84; RESP 17–19
[2016-04-20] MEDS: morphine 2 MG INJ IV PRN ×3 (02:41→15:23)
[2016-04-20 03:54] LABS: HEMOGLOBIN 8.5 g/dl (14.0-18.0); MEAN CORPUSCULAR HGB CONC 32.6 g/dl (32.0-37.0); MEAN PLATELET VOLUME 8.6 fl (7.4-10.4); RED BLOOD COUNT 2.83 10^6/ul (4.70-6.10); RED CELL DISTRIBUTION WIDTH 23.5 % (11.5-14.5)
[2016-04-20 03:56] LABS: ALBUMIN 3.4 g/dl (3.3-4.9)
[2016-04-20 03:57] LABS: POTASSIUM 4.7 mmol/L (3.5-5.1)
[2016-04-20 03:59] LABS: ALBUMIN/GLOBULIN RATIO 0.68; BILIRUBIN,INDIRECT 0.4 mg/dl (0-1.1); BILIRUBIN,TOTAL 0.4 mg/dl (0.2-1.3); CREATININE 0.88 mg/dl (0.61-1.24); TOTAL PROTEIN 8.4 g/dl (6.1-8.1)
[2016-04-20 04:00] LABS: CALCIUM 8.6 mg/dl (8.4-10.2)
[2016-04-20 04:02] LABS: CONDITION 1; LH ANALYZER COMMENTS 1; PLATELET COUNT 37 10^3/UL (140-440)
[2016-04-20] MEDS: VANCOMYCIN 1.5 GM in SOD CHLORIDE 0.9% 250 ML IVPB SCH ×2 (04:35→15:15)
[2016-04-20 05:01] LABS: EOSINOPHILS # 0.1 10^3/ul (0.0-0.5)
[2016-04-20 05:02] LABS: PLATELET ESTIMATE PLT APPEAR DECREASED
[2016-04-20] MEDS: LEVOFLOXACIN 500 MG TAB PO SCH (05:20)
[2016-04-20] MEDS: PANTOPRAZOLE (EC) 40 MG TAB PO SCH (05:21)
[2016-04-20] MEDS: HYDROCODONE/APAP (5/325) TAB PO PRN ×2 (05:22→19:00)
[2016-04-20] MEDS: DOCUSATE SODIUM 100 MG CAP PO SCH ×2 (05:36→20:21)
[2016-04-20] MEDS: AMLODIPINE 2.5 MG TAB PO SCH (05:36)
[2016-04-20] MEDS: LISINOPRIL 5 MG TAB PO SCH (05:36)
[2016-04-20] MEDS: METOPROLOL 100 MG TAB PO SCH ×2 (05:37→20:22)
[2016-04-20] MEDS: COLLAGENASE 30 GM TUBE TOP SCH (09:00)
[2016-04-20] MEDS: ALLOPURINOL 300 MG TAB PO SCH (09:30)
[2016-04-20] MEDS: POLYETHYLENE GLYCOL 17 GM PACKET PO SCH (09:30)
[2016-04-20] MEDS: INSULIN ASPART [NOVOLOG] 3 ML PEN SC SCH ×7 (09:32→20:28)
--- NOTE | 2016-04-20 12:15 | PN ---
Date/Time of Note Date/Time of Note DATE: 04/20/16 TIME: 12:09 Assessment/Plan VTE Prophylaxis VTE Prophylaxis Intervention: SCD's Lines/Catheters IV Catheter Type (from Nrs): PICC Line Central line still needed: Yes (for Chemo ) Urinary Cath still in place: No Assessment/Plan Assessment/Plan 55-year-old male with: 1. Hairy cell Leukemia. patient admitted with anemia, acute on chronic, pancytopenia, primarily thrombocytopenic. HIV negative. Appreciate Hematology eval and plan of care. On Chemo D#3/5 Dr Flannery following Counts mostly unchanged so far. 2. Fever with likely acute infection of his right 1st and 2nd toe. ESR elevated. Afebrile now since admission. The patient also had a rash, maculopapular. He does have a history of methicillin-resistant Staphylococcus aureus skin and soft-tissue infection years ago requiring extensive debridement of the left upper extremity. MRI foot with osteomyelitis and JOSE J negative Continue Vancomycin and Levaquin per ID Blood cultures NGTD and wound cultures pending. Wound care and Dr Thomas following patient. 3. Diabetes mellitus. A1c back at 7.2 ...Continue current insulin regimen, keeping off glyburide. On Tradjenta Appreciate critical care educator recommendations. Patient really needs to be compliant with ADA diet. BG currently up due to non compliance even inpatient stills get food form family members visiting ... 4. Cardiomegaly, EF 50%. No further episodes of NSVT since yesterday. Continue Lopressor/Bblock Electrolytes stable again today. S/p negative JOSE J 5. Hypertension. Continue beta blockers and Norvasc and increase Lisinopril dose. 6. Constipation, relieved: continue Miralax and colace scheduled and add MOM along with dulcolax prn. Prophylaxis. Proton pump inhibitors for GI prophylaxis and SCDs for DVT prophylaxis. DISPOSITION: On chemo. F/u wound care and follow up further ID and Podiatry recs Subjective 24 Hr Interval Summary Free Text/Dictation Patient doing well so far on chemo Issues with non compliance with diet and now again elevated BG, patient was refusing Lantus before but now agreeable to take it Exam/Review of Systems Vital Signs Vitals Vital Signs Date Time Temp Pulse Resp B/P Pulse Ox O2 Delivery O2 Flow Rate FiO2 04/20/16 10:42 17 135/80 99 Room Air 12/15/16 06:25 77 04/20/16 05:50 97.4 Intake and Output 04/19/16 04/19/16 04/20/16 15:00 23:00 07:00 Intake Total 2597 ml 2157 ml Output Total 1400 ml 1800 ml Balance 1197 ml 357 ml Exam Constitutional: alert, oriented, other (blind ), well developed Respiratory: clear to auscultation, normal air movement Cardiovascular: nl pulses, regular rate and rhythm Gastrointestinal: non-tender, soft Musculoskeletal: other (right 1st and 2nd toe osteomyelitis and non healing DM ulcers) Extremities: normal pulses, other (no edema, clubbing or cyanosis) 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: PRINCIPAL NETWORK ARCHITECT II-XII intact, nl mental status, nl speech, nl strength Results Result Diagram: 04/20/16 0300 04/20/16 0310 Results 24 hrs Laboratory Tests Test 04/19/16 17:17 04/19/16 20:13 04/20/16 02:38 04/20/16 03:00 Bedside Glucose 263 H 323 H 257 H Blood Morphology Comment Differential Comment MANUAL DIFF Eosinophils # 0.1 Eosinophils % 1.0 Hematocrit 26.0 L Hemoglobin 8.5 L Lymphocytes # 4.0 H Lymphocytes % 80.0 H Mean Corpuscular Hemoglobin 30.0 Mean Corpuscular Hemoglobin Concent 32.6 Mean Corpuscular Volume 92.0 Mean Platelet Volume 8.6 Neutrophils # 1.0 L Neutrophils % 19.0 L Nucleated Red Blood Cells % 17.0 H Platelet Count 37 L Platelet Estimate PLT APPEAR DECREASED Red Blood Count 2.83 L Red Cell Distribution Width 23.5 H Vancomycin Level Trough 15.6 White Blood Count 5.0 Test 04/20/16 03:10 04/20/16 08:17 Alanine Aminotransferase (ALT/SGPT) 59 Albumin 3.4 Albumin/Globulin Ratio 0.68 Alkaline Phosphatase 259 H Anion Gap 14 Aspartate Amino Transf (AST/SGOT) 37 Blood Urea Nitrogen 18 Calcium Level 8.6 Carbon Dioxide Level 25 Chloride Level 104 Creatinine 0.88 Direct Bilirubin 0.00 Globulin 5.00 H Glucose Level 270 H Indirect Bilirubin 0.4 Potassium Level 4.7 Sodium Level 138 Total Bilirubin 0.4 Total Protein 8.4 H Bedside Glucose 243 H Medications Medications Current Medications Insulin Glargine (Lantus) 23 unit QHS SC Last administered on 04/19/16at 20:18 ; Admin Dose 23 UNIT; Start 04/10/16 at 21:00 Ondansetron HCl (Zofran Inj) 4 mg Q6H PRN IV NAUSEA AND/OR VOMITING; Start 04/10/16 at 19:00 Nitroglycerin (Nitroglycerin (Sl Tab) 0.4 Mg) 1 tab Q5M PRN SL CHEST PAIN; Start 04/10/16 at 19:00 Acetaminophen (Tylenol Tab) 650 mg Q6H PRN PO PAIN LEVEL 1-3 OR FEVER Last administered on 04/11/16at 23:01; Admin Dose 650 MG; Start 04/10/16 at 19:00 Acetaminophen/ Hydrocodone Bitart ([place] (5/325)) 1 tab Q6H PRN PO PAIN LEVEL 4 -6 Last administered on 04/14/16at 23:25; Admin Dose 1 TAB; Start 04/10/16 at 19: 00 Acetaminophen/ Hydrocodone Bitart ([place] (5/325)) 2 tab Q6H PRN PO PAIN LEVEL 7 -10 Last administered on 04/20/16at 05:22; Admin Dose 2 TAB; Start 04/10/16 at 19:00 Morphine Sulfate (morphine) 2 mg Q4H PRN IV PAIN LEVEL 7-10 Last administered on 04/20/16at 09:39; Admin Dose 2 MG; Start 04/10/16 at 19:00 Magnesium Hydroxide (Milk Of Mag) 30 ml DAILY PRN PO CONSTIPATION Last administered on 04/17/16at 05:47; Admin Dose 30 ML; Start 04/10/16 at 19:00 Bisacodyl (Dulcolax Supp) 10 mg DAILY PRN [place] CONSTIPATION; Start 04/10/16 at 19 :00 Pantoprazole (Protonix Tab) 40 mg DAILY@06 PO Last administered on 04/20/16at 05:21; Admin Dose 40 MG; Start 04/11/16 at 06:00 Miscellaneous Information 1 ea NOTE XX ; Start 04/10/16 at 19:00 Glucose (Glutose) 15 gm Q15M PRN PO DECREASED GLUCOSE; Start 04/10/16 at 19:00 Glucose (Glutose) 22.5 gm Q15M PRN PO DECREASED GLUCOSE; Start 04/10/16 at 19: 00 Dextrose (D50w Syringe) 25 ml Q15M PRN IV DECREASED GLUCOSE; Start 04/10/16 at 19:00 Dextrose (D50w Syringe) 50 ml Q15M PRN IV DECREASED GLUCOSE; Start 04/10/16 at 19:00 Glucagon (Glucagen) 1 mg Q15M PRN IM DECREASED GLUCOSE; Start 04/10/16 at 19:00 Glucose (Glutose) 15 gm Q15M PRN BUCCAL DECREASED GLUCOSE; Start 04/10/16 at 19 :00 Metoprolol Tartrate (Lopressor) 100 mg BID PO Last administered on 04/20/16at 05:37; Admin Dose 100 MG; Start 04/11/16 at 09:00 Docusate Sodium (Colace) 100 mg Q12H PO Last administered on 04/20/16at 05:36; Admin Dose 100 MG; Start 04/11/16 at 19:00 Polyethylene Glycol (Miralax) 17 gm DAILY PO Last administered on 04/20/16at 09 :30; Admin Dose 17 GM; Start 04/11/16 at 13:00 Amlodipine Besylate (Norvasc) 2.5 mg DAILY PO Last administered on 04/20/16at 05:36; Admin Dose 2.5 MG; Start 04/14/16 at 09:00 Lisinopril (Zestril) 5 mg BID PO Last administered on 04/20/16at 05:36; Admin Dose 5 MG; Start 04/15/16 at 21:00 Levofloxacin (Levaquin) 500 mg DAILY@06 PO Last administered on 04/20/16at 05: 20; Admin Dose 500 MG; Start 04/15/16 at 14:00 Collagenase (Santyl) 1 applic DAILY TOP Last administered on 04/19/16at 08:48; Admin Dose 1 APPLIC; Start 04/17/16 at 16:00 Allopurinol (Zyloprim) 300 mg DAILY PO Last administered on 04/20/16at 09:30; Admin Dose 300 MG; Start 04/18/16 at 09:30 IV Flush 10 ml 10 ml PRN PRN IV IV PROTOCOL; Start 04/18/16 at 11:30 Ondansetron HCl 8 mg/Dexamethasone 10 mg/ Diphenhydramine HCl 25 mg/Sodium Chloride 55.5 ml @ 110 mls/hr 1230 IVPB Last administered on 04/19/16at 13:49 ; Admin Dose 110 MLS/HR; Start 04/18/16 at 12:30; Stop 04/22/16 at 13:01 Cladribine 17 mg/ Sodium Chloride 500 ml @ 21 mls/hr 13 IV Last administered on 04/19/16at 14:56; Admin Dose 21 MLS/HR; Start 04/18/16 at 13:00; Stop 04/23 at 12:49 Sodium Chloride (NS) 1,000 ml @ 75 mls/hr [id number] IV Last administered on at 22:41; Admin Dose 75 MLS/HR; Start 04/18/16 at 12:30 Dexamethasone (Decadron) 10 mg Q4H PRN IV REACTION; Start 04/18/16 at 13:00 Diphenhydramine HCl 25 mg 25 mg Q4H PRN IV ALLERGIC REACTION; Start 04/18/16 at 13:00 Ondansetron HCl 8 mg/Sodium Chloride 54 ml @ 110 mls/hr Q8H PRN IV NAUSEA; Start 04/18/16 at 13:00 Vancomycin HCl/ Sodium Chloride (Vancocin/NS) 250 ml @ 83.333 mls/ hr Q12H IVPB Last administered on 04/20/16at 04:35; Admin Dose 83.333 MLS/HR; Start at 16:00 LAUREL ANDERSON Apr 20, 2016 12:15
[2016-04-20] MEDS ORDERED: LISINOPRIL 5 MG TAB PO ONE (13:00)
--- NOTE | 2016-04-20 13:09 | CONS ---
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 Problems: Additional Assessment/Plan -Pt is now day 3 of cladribine 0.14mg/kg/day continues IV infusion x 5 days. continue chemotherapy even while patient is on antibiotics. 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 we have to treat the underlying leukemia to help him fight his multiple chronic infections. will continue chemotherapy -given patient is CD 20 positive will give a dose of Rituxan after cladribine infusion is done - hemolysis unlikely with high haptoglobin, normal LDH and peripheral smear without schistocytes. -f/u blood cultures as pt appears to have a disseminated infection which may be the cause of this severe anemia. cultures are thus far negative -allopurinol started as prophylaxis for tumor lysis syndrome Approximately 40 min were spent at patient's bedside and in coordination of his care Consultation Date/Type/Reason Admit Date/Time Apr 10, 2016 at 16:55 Initial Consult Date 04/11/16 Type of Consultation: Hematology Reason for Consultation Hairy Cell Leukemia Referring Provider: LAUREL ANDERSON 24 HR Interval Summary Free Text/Dictation pt continues on chemotherapy and states he feels much better Exam/Review of Systems Vital Signs Vitals Vital Signs Date Time Temp Pulse Resp B/P Pulse Ox O2 Delivery O2 Flow Rate FiO2 04/20/16 12:32 97.5 78 18 160/90 99 04/20/16 10:42 Room Air Intake and Output 04/19/16 04/19/16 04/20/16 15:00 23:00 07:00 Intake Total 2597 ml 2157 ml Output Total 1400 ml 1800 ml Balance 1197 ml 357 ml Exam Constitutional: alert, oriented Psych: no complaints Head: atraumatic, normocephalic Eyes: other (blind) ENMT: nl external ears & nose Neck: non-tender, supple Respiratory: clear to auscultation, normal air movement Cardiovascular: regular rate and rhythm Gastrointestinal: soft Musculoskeletal: nl extremities to inspection, nl gait and stance Extremities: normal pulses Results Result Diagram: 04/20/16 0300 04/20/16 0310 Results 24 hrs Laboratory Tests Test 04/19/16 17:17 04/19/16 20:13 04/20/16 02:38 04/20/16 03:00 Bedside Glucose 263 H 323 H 257 H Blood Morphology Comment Differential Comment MANUAL DIFF Eosinophils # 0.1 Eosinophils % 1.0 Hematocrit 26.0 L Hemoglobin 8.5 L Lymphocytes # 4.0 H Lymphocytes % 80.0 H Mean Corpuscular Hemoglobin 30.0 Mean Corpuscular Hemoglobin Concent 32.6 Mean Corpuscular Volume 92.0 Mean Platelet Volume 8.6 Neutrophils # 1.0 L Neutrophils % 19.0 L Nucleated Red Blood Cells % 17.0 H Platelet Count 37 L Platelet Estimate PLT APPEAR DECREASED Red Blood Count 2.83 L Red Cell Distribution Width 23.5 H Vancomycin Level Trough 15.6 White Blood Count 5.0 Test 04/20/16 03:10 04/20/16 08:17 04/20/16 12:08 Alanine Aminotransferase (ALT/SGPT) 59 Albumin 3.4 Albumin/Globulin Ratio 0.68 Alkaline Phosphatase 259 H Anion Gap 14 Aspartate Amino Transf (AST/SGOT) 37 Blood Urea Nitrogen 18 Calcium Level 8.6 Carbon Dioxide Level 25 Chloride Level 104 Creatinine 0.88 Direct Bilirubin 0.00 Globulin 5.00 H Glucose Level 270 H Indirect Bilirubin 0.4 Potassium Level 4.7 Sodium Level 138 Total Bilirubin 0.4 Total Protein 8.4 H Bedside Glucose 243 H 235 H Medications Medications Current Medications Insulin Glargine (Lantus) 23 unit QHS SC Last administered on 04/19/16at 20:18 ; Admin Dose 23 UNIT; Start 04/10/16 at 21:00 Ondansetron HCl (Zofran Inj) 4 mg Q6H PRN IV NAUSEA AND/OR VOMITING; Start 04/10/16 at 19:00 Nitroglycerin (Nitroglycerin (Sl Tab) 0.4 Mg) 1 tab Q5M PRN SL CHEST PAIN; Start 04/10/16 at 19:00 Acetaminophen (Tylenol Tab) 650 mg Q6H PRN PO PAIN LEVEL 1-3 OR FEVER Last administered on 04/11/16at 23:01; Admin Dose 650 MG; Start 04/10/16 at 19:00 Acetaminophen/ Hydrocodone Bitart ([place] (5/325)) 1 tab Q6H PRN PO PAIN LEVEL 4 -6 Last administered on 04/14/16at 23:25; Admin Dose 1 TAB; Start 04/10/16 at 19: 00 Acetaminophen/ Hydrocodone Bitart ([place] (5/325)) 2 tab Q6H PRN PO PAIN LEVEL 7 -10 Last administered on 04/20/16at 05:22; Admin Dose 2 TAB; Start 04/10/16 at 19:00 Morphine Sulfate (morphine) 2 mg Q4H PRN IV PAIN LEVEL 7-10 Last administered on 04/20/16at 09:39; Admin Dose 2 MG; Start 04/10/16 at 19:00 Magnesium Hydroxide (Milk Of Mag) 30 ml DAILY PRN PO CONSTIPATION Last administered on 04/17/16at 05:47; Admin Dose 30 ML; Start 04/10/16 at 19:00 Bisacodyl (Dulcolax Supp) 10 mg DAILY PRN ME CONSTIPATION; Start 04/10/16 at 19 :00 Pantoprazole (Protonix Tab) 40 mg DAILY@06 PO Last administered on 04/20/16at 05:21; Admin Dose 40 MG; Start 04/11/16 at 06:00 Miscellaneous Information 1 ea NOTE XX ; Start 04/10/16 at 19:00 Glucose (Glutose) 15 gm Q15M PRN PO DECREASED GLUCOSE; Start 04/10/16 at 19:00 Glucose (Glutose) 22.5 gm Q15M PRN PO DECREASED GLUCOSE; Start 04/10/16 at 19: 00 Dextrose (D50w Syringe) 25 ml Q15M PRN IV DECREASED GLUCOSE; Start 04/10/16 at 19:00 Dextrose (D50w Syringe) 50 ml Q15M PRN IV DECREASED GLUCOSE; Start 04/10/16 at 19:00 Glucagon (Glucagen) 1 mg Q15M PRN IM DECREASED GLUCOSE; Start 04/10/16 at 19:00 Glucose (Glutose) 15 gm Q15M PRN BUCCAL DECREASED GLUCOSE; Start 04/10/16 at 19 :00 Metoprolol Tartrate (Lopressor) 100 mg BID PO Last administered on 04/20/16at 05:37; Admin Dose 100 MG; Start 04/11/16 at 09:00 Docusate Sodium (Colace) 100 mg Q12H PO Last administered on 04/20/16at 05:36; Admin Dose 100 MG; Start 04/11/16 at 19:00 Polyethylene Glycol (Miralax) 17 gm DAILY PO Last administered on 04/20/16at 09 :30; Admin Dose 17 GM; Start 04/11/16 at 13:00 Amlodipine Besylate (Norvasc) 2.5 mg DAILY PO Last administered on 04/20/16at 05:36; Admin Dose 2.5 MG; Start 04/14/16 at 09:00 Levofloxacin (Levaquin) 500 mg DAILY@06 PO Last administered on 04/20/16at 05: 20; Admin Dose 500 MG; Start 04/15/16 at 14:00 Collagenase (Santyl) 1 applic DAILY TOP Last administered on 04/19/16at 08:48; Admin Dose 1 APPLIC; Start 04/17/16 at 16:00 Allopurinol (Zyloprim) 300 mg DAILY PO Last administered on 04/20/16at 09:30; Admin Dose 300 MG; Start 04/18/16 at 09:30 IV Flush 10 ml 10 ml PRN PRN IV IV PROTOCOL; Start 04/18/16 at 11:30 Ondansetron HCl 8 mg/Dexamethasone 10 mg/ Diphenhydramine HCl 25 mg/Sodium Chloride 55.5 ml @ 110 mls/hr 1230 IVPB Last administered on 04/19/16at 13:49 ; Admin Dose 110 MLS/HR; Start 04/18/16 at 12:30; Stop 04/22/16 at 13:01 Cladribine 17 mg/ Sodium Chloride 500 ml @ 21 mls/hr 13 IV Last administered on 04/19/16at 14:56; Admin Dose 21 MLS/HR; Start 04/18/16 at 13:00; Stop 04/23 at 12:49 Sodium Chloride (NS) 1,000 ml @ 75 mls/hr [id number] IV Last administered on at 22:41; Admin Dose 75 MLS/HR; Start 04/18/16 at 12:30 Dexamethasone (Decadron) 10 mg Q4H PRN IV REACTION; Start 04/18/16 at 13:00 Diphenhydramine HCl 25 mg 25 mg Q4H PRN IV ALLERGIC REACTION; Start 04/18/16 at 13:00 Ondansetron HCl 8 mg/Sodium Chloride 54 ml @ 110 mls/hr Q8H PRN IV NAUSEA; Start 04/18/16 at 13:00 Vancomycin HCl/ Sodium Chloride (Vancocin/NS) 250 ml @ 83.333 mls/ hr Q12H IVPB Last administered on 04/20/16at 04:35; Admin Dose 83.333 MLS/HR; Start at 16:00 Lisinopril (Zestril) 10 mg BID PO ; Start 04/20/16 at 21:00 TOY DWYER M.D. Apr 20, 2016 13:09
--- NOTE | 2016-04-20 14:11 | CONS ---
Date/Time of Note Date/Time of Note DATE: 04/20/16 TIME: 14:10 Consult Date/Type/Reason Admit Date/Time Apr 10, 2016 at 16:55 Initial Consult Date 04/11/16 Type of Consultation: ID Ordering Provider: LAUREL ANDERSON Subjective alert, feels good, no fevers Objective Vital Signs Date Time Temp Pulse Resp B/P Pulse Ox O2 Delivery O2 Flow Rate FiO2 04/20/16 12:32 97.5 78 18 160/90 99 04/20/16 10:42 Room Air Intake and Output 04/19/16 04/19/16 04/20/16 15:00 23:00 07:00 Intake Total 2597 ml 2157 ml Output Total 1400 ml 1800 ml Balance 1197 ml 357 ml Results/Medications Result Diagram: 04/20/16 0300 04/20/16 0310 Results 24 hrs Laboratory Tests Test 04/19/16 17:17 04/19/16 20:13 04/20/16 02:38 04/20/16 03:00 Bedside Glucose 263 H 323 H 257 H Blood Morphology Comment Differential Comment MANUAL DIFF Eosinophils # 0.1 Eosinophils % 1.0 Hematocrit 26.0 L Hemoglobin 8.5 L Lymphocytes # 4.0 H Lymphocytes % 80.0 H Mean Corpuscular Hemoglobin 30.0 Mean Corpuscular Hemoglobin Concent 32.6 Mean Corpuscular Volume 92.0 Mean Platelet Volume 8.6 Neutrophils # 1.0 L Neutrophils % 19.0 L Nucleated Red Blood Cells % 17.0 H Platelet Count 37 L Platelet Estimate PLT APPEAR DECREASED Red Blood Count 2.83 L Red Cell Distribution Width 23.5 H Vancomycin Level Trough 15.6 White Blood Count 5.0 Test 04/20/16 03:10 04/20/16 08:17 04/20/16 12:08 Alanine Aminotransferase (ALT/SGPT) 59 Albumin 3.4 Albumin/Globulin Ratio 0.68 Alkaline Phosphatase 259 H Anion Gap 14 Aspartate Amino Transf (AST/SGOT) 37 Blood Urea Nitrogen 18 Calcium Level 8.6 Carbon Dioxide Level 25 Chloride Level 104 Creatinine 0.88 Direct Bilirubin 0.00 Globulin 5.00 H Glucose Level 270 H Indirect Bilirubin 0.4 Potassium Level 4.7 Sodium Level 138 Total Bilirubin 0.4 Total Protein 8.4 H Bedside Glucose 243 H 235 H Medications Current Medications Insulin Glargine (Lantus) 23 unit QHS SC Last administered on 04/19/16at 20:18 ; Admin Dose 23 UNIT; Start 04/10/16 at 21:00 Ondansetron HCl (Zofran Inj) 4 mg Q6H PRN IV NAUSEA AND/OR VOMITING; Start 04/10/16 at 19:00 Nitroglycerin (Nitroglycerin (Sl Tab) 0.4 Mg) 1 tab Q5M PRN SL CHEST PAIN; Start 04/10/16 at 19:00 Acetaminophen (Tylenol Tab) 650 mg Q6H PRN PO PAIN LEVEL 1-3 OR FEVER Last administered on 04/11/16at 23:01; Admin Dose 650 MG; Start 04/10/16 at 19:00 Acetaminophen/ Hydrocodone Bitart ([place] (5/325)) 1 tab Q6H PRN PO PAIN LEVEL 4 -6 Last administered on 04/14/16at 23:25; Admin Dose 1 TAB; Start 04/10/16 at 19: 00 Acetaminophen/ Hydrocodone Bitart ([place] (5/325)) 2 tab Q6H PRN PO PAIN LEVEL 7 -10 Last administered on 04/20/16at 05:22; Admin Dose 2 TAB; Start 04/10/16 at 19:00 Morphine Sulfate (morphine) 2 mg Q4H PRN IV PAIN LEVEL 7-10 Last administered on 04/20/16at 09:39; Admin Dose 2 MG; Start 04/10/16 at 19:00 Magnesium Hydroxide (Milk Of Mag) 30 ml DAILY PRN PO CONSTIPATION Last administered on 04/17/16at 05:47; Admin Dose 30 ML; Start 04/10/16 at 19:00 Bisacodyl (Dulcolax Supp) 10 mg DAILY PRN OR CONSTIPATION; Start 04/10/16 at 19 :00 Pantoprazole (Protonix Tab) 40 mg DAILY@06 PO Last administered on 04/20/16at 05:21; Admin Dose 40 MG; Start 04/11/16 at 06:00 Miscellaneous Information 1 ea NOTE XX ; Start 04/10/16 at 19:00 Glucose (Glutose) 15 gm Q15M PRN PO DECREASED GLUCOSE; Start 04/10/16 at 19:00 Glucose (Glutose) 22.5 gm Q15M PRN PO DECREASED GLUCOSE; Start 04/10/16 at 19: 00 Dextrose (D50w Syringe) 25 ml Q15M PRN IV DECREASED GLUCOSE; Start 04/10/16 at 19:00 Dextrose (D50w Syringe) 50 ml Q15M PRN IV DECREASED GLUCOSE; Start 04/10/16 at 19:00 Glucagon (Glucagen) 1 mg Q15M PRN IM DECREASED GLUCOSE; Start 04/10/16 at 19:00 Glucose (Glutose) 15 gm Q15M PRN BUCCAL DECREASED GLUCOSE; Start 04/10/16 at 19 :00 Metoprolol Tartrate (Lopressor) 100 mg BID PO Last administered on 04/20/16at 05:37; Admin Dose 100 MG; Start 04/11/16 at 09:00 Docusate Sodium (Colace) 100 mg Q12H PO Last administered on 04/20/16at 05:36; Admin Dose 100 MG; Start 04/11/16 at 19:00 Polyethylene Glycol (Miralax) 17 gm DAILY PO Last administered on 04/20/16at 09 :30; Admin Dose 17 GM; Start 04/11/16 at 13:00 Amlodipine Besylate (Norvasc) 2.5 mg DAILY PO Last administered on 04/20/16at 05:36; Admin Dose 2.5 MG; Start 04/14/16 at 09:00 Levofloxacin (Levaquin) 500 mg DAILY@06 PO Last administered on 04/20/16at 05: 20; Admin Dose 500 MG; Start 04/15/16 at 14:00 Collagenase (Santyl) 1 applic DAILY TOP Last administered on 04/20/16at 09:00; Admin Dose 1 APPLIC; Start 04/17/16 at 16:00 Allopurinol (Zyloprim) 300 mg DAILY PO Last administered on 04/20/16at 09:30; Admin Dose 300 MG; Start 04/18/16 at 09:30 IV Flush 10 ml 10 ml PRN PRN IV IV PROTOCOL; Start 04/18/16 at 11:30 Ondansetron HCl 8 mg/Dexamethasone 10 mg/ Diphenhydramine HCl 25 mg/Sodium Chloride 55.5 ml @ 110 mls/hr 1230 IVPB Last administered on 04/19/16at 13:49 ; Admin Dose 110 MLS/HR; Start 04/18/16 at 12:30; Stop 04/22/16 at 13:01 Cladribine 17 mg/ Sodium Chloride 500 ml @ 21 mls/hr 13 IV Last administered on 04/19/16at 14:56; Admin Dose 21 MLS/HR; Start 04/18/16 at 13:00; Stop 04/23 at 12:49 Sodium Chloride (NS) 1,000 ml @ 75 mls/hr [id number] IV Last administered on at 22:41; Admin Dose 75 MLS/HR; Start 04/18/16 at 12:30 Dexamethasone (Decadron) 10 mg Q4H PRN IV REACTION; Start 04/18/16 at 13:00 Diphenhydramine HCl 25 mg 25 mg Q4H PRN IV ALLERGIC REACTION; Start 04/18/16 at 13:00 Ondansetron HCl 8 mg/Sodium Chloride 54 ml @ 110 mls/hr Q8H PRN IV NAUSEA; Start 04/18/16 at 13:00 Vancomycin HCl/ Sodium Chloride (Vancocin/NS) 250 ml @ 83.333 mls/ hr Q12H IVPB Last administered on 04/20/16at 04:35; Admin Dose 83.333 MLS/HR; Start at 16:00 Lisinopril (Zestril) 10 mg BID PO ; Start 04/20/16 at 21:00 Assessment/Plan Chief Complaint/Hosp Course ANTIMICROBIALS: 1. Vancomycin===> level 15.6 today. 2. Levaquin. Indwellings: LUE PICC 04/18/16 PHYSICAL EXAMINATION: GENERAL: Obese, well-developed, middle-aged man who is awake, in no distress. HEENT: Head atraumatic, normocephalic. Sclerae anicteric. Buccal mucosa pink. NECK: Supple. Trachea midline. LUNGS: Chest rise symmetrical. Breath sounds clear, diminished at bases. HEART: S1, S2. ABDOMEN: Soft. Bowel tones present. EXTREMITIES: With right foot edema ASSESSMENT: 1. 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 2. Systemic inflammatory response syndrome with fever on admission, elevated ESR, significant thrombocytopenia and anemia. The patient is being followed by hematology team, status post CT-guided bone marrow biopsy. 3. Diabetes. 4. Hypertension. 5. Legally blind. 6. Hairy cell leukemia PLAN: Remains stable, continue abx, chemotherapy per oncology, podiatry rec-s [facility] staff Problems: JUVENAL SANCHEZ NP Apr 20, 2016 14:11
[2016-04-20] MEDS: SOD CHLORIDE 0.9% 1,000 ML IV SCH (15:27)
[2016-04-20] MEDS: DEXAMETHASONE IVPB SCH (19:02)
[2016-04-20] MEDS: [UNRECOGNIZED DRUG - OTHER] IVPB SCH (19:02)
[2016-04-20] MEDS: ONDANSETRON IVPB SCH (19:02)
[2016-04-20] MEDS: DIPHENHYDRAMINE IVPB SCH (19:02)
[2016-04-20] MEDS: SOD CHLORIDE 0.9% IV SCH (19:39)
[2016-04-20] MEDS: CLADRIBINE IV SCH (19:39)
[2016-04-20] MEDS: LISINOPRIL 10 MG TAB PO SCH (20:22)
[2016-04-20] MEDS: INSULIN GLARGINE [LANtus] 3 ML PEN SC SCH (20:27)
[2016-04-21] VITALS (9 sets, daily range): BP systolic 125–174; BP diastolic 83–104; PULSE 70–97; RESP 14–21
[2016-04-21] MEDS: HYDROCODONE/APAP (5/325) TAB PO PRN (04:30)
[2016-04-21] MEDS: DOCUSATE SODIUM 100 MG CAP PO SCH ×2 (04:30→19:00)
[2016-04-21] MEDS: VANCOMYCIN 1.5 GM in SOD CHLORIDE 0.9% 250 ML IVPB SCH ×2 (04:30→16:39)
[2016-04-21] MEDS: LEVOFLOXACIN 500 MG TAB PO SCH (04:30)
[2016-04-21] MEDS: PANTOPRAZOLE (EC) 40 MG TAB PO SCH (04:30)
[2016-04-21] MEDS: SOD CHLORIDE 0.9% 1,000 ML IV SCH ×2 (04:31→20:30)
[2016-04-21] MEDS ORDERED: AMLODIPINE 5 MG TAB PO SCH (04:55)
[2016-04-21] MEDS: MAGNESIUM HYDROXIDE 30ML CUP PO PRN (05:00)
[2016-04-21 05:41] LABS: HEMOGLOBIN 9.3 g/dl (14.0-18.0); MEAN CORPUSCULAR HEMOGLOBIN 30.3 pg (29.0-33.0); MEAN CORPUSCULAR HGB CONC 33.2 g/dl (32.0-37.0); MEAN CORPUSCULAR VOLUME 91.3 fl (82.0-101.0); PLATELET COUNT 37 10^3/UL (140-440); RED BLOOD COUNT 3.07 10^6/ul (4.70-6.10); RED CELL DISTRIBUTION WIDTH 23.1 % (11.5-14.5); UNCORRECTED WBC 3.4 10^3/ul (4.8-10.8); WHITE BLOOD COUNT 3.4 10^3/ul (4.8-10.8)
[2016-04-21 06:16] LABS: ALBUMIN 3.5 g/dl (3.3-4.9)
[2016-04-21 06:17] LABS: POTASSIUM 4.6 mmol/L (3.5-5.1)
[2016-04-21 06:18] LABS: CONDITION 1; LH ANALYZER COMMENTS 1
[2016-04-21 06:19] LABS: ALBUMIN/GLOBULIN RATIO 0.67; BILIRUBIN,INDIRECT 0.4 mg/dl (0-1.1); BILIRUBIN,TOTAL 0.4 mg/dl (0.2-1.3); CREATININE 0.85 mg/dl (0.61-1.24); TOTAL PROTEIN 8.7 g/dl (6.1-8.1)
[2016-04-21 06:20] LABS: CALCIUM 8.8 mg/dl (8.4-10.2)
[2016-04-21 07:59] LABS: LYMPHOCYTES # 2.6 10^3/ul (0.8-2.9); MONOCYTE # 0.1 10^3/ul (0.3-0.9); NEUTROPHIL # 0.7 10^3/ul (1.6-7.5); PLATELET ESTIMATE PLT APPEAR DECREASED
[2016-04-21] MEDS: ALLOPURINOL 300 MG TAB PO SCH (08:33)
[2016-04-21] MEDS: METOPROLOL 100 MG TAB PO SCH ×2 (08:34→21:30)
[2016-04-21] MEDS: LISINOPRIL 10 MG TAB PO SCH (08:34)
[2016-04-21] MEDS: INSULIN ASPART [NOVOLOG] 3 ML PEN SC SCH ×7 (08:37→21:00)
[2016-04-21] MEDS: POLYETHYLENE GLYCOL 17 GM PACKET PO SCH (08:39)
[2016-04-21] MEDS: COLLAGENASE 30 GM TUBE TOP SCH (08:41)
--- NOTE | 2016-04-21 11:47 | PN ---
Date/Time of Note Date/Time of Note DATE: 04/21/16 TIME: 11:41 Assessment/Plan VTE Prophylaxis VTE Prophylaxis Intervention: SCD's Lines/Catheters IV Catheter Type (from Nrs): PICC Line Central line still needed: Yes (for Chemo ) Urinary Cath still in place: No Assessment/Plan Assessment/Plan 55-year-old male with: 1. Hairy cell Leukemia. patient admitted with anemia, acute on chronic, pancytopenia, primarily thrombocytopenic. HIV negative. Appreciate Hematology eval and plan of care. On Chemo D#4/5 Dr Flannery following Counts mostly unchanged so far. 2. Fever with likely acute infection of his right 1st and 2nd toe. ESR elevated. Afebrile now since admission. The patient also had a rash, maculopapular. He does have a history of methicillin-resistant Staphylococcus aureus skin and soft-tissue infection years ago requiring extensive debridement of the left upper extremity. MRI foot with osteomyelitis and JOSE J negative Continue Vancomycin and Levaquin per ID Blood cultures NGTD and wound cultures pending. Wound care and Dr Thomas following patient. 3. Diabetes mellitus. A1c back at 7.2 ...Continue current insulin regimen, keeping off glyburide. On Tradjenta. Increased Lantus to 30 and premeal insulin to 8 Appreciate asthma educator recommendations. Patient really needs to be compliant with ADA diet. BG currently up due to non compliance even inpatient stills get food form family members visiting ... 4. Cardiomegaly, EF 50%. No further episodes of NSVT since yesterday. Continue Lopressor/Bblock Electrolytes stable again today. S/p negative JOSE J 5. Hypertension. Continue beta blockers and Norvasc and increase Lisinopril to 20 mg po bid and add hydralazine prn. 6. Constipation, relieved: continue Miralax and colace scheduled and add MOM along with dulcolax prn. Prophylaxis. Proton pump inhibitors for GI prophylaxis and SCDs for DVT prophylaxis. DISPOSITION: On chemo. F/u wound care and follow up further ID and Podiatry recs. Will likely require SNF discharge. Subjective 24 Hr Interval Summary Free Text/Dictation Patient with no complaints except complaining of not enough food while on ADA diet BG up and BP up, meds titrated Exam/Review of Systems Vital Signs Vitals Vital Signs Date Time Temp Pulse Resp B/P Pulse Ox O2 Delivery O2 Flow Rate FiO2 04/21/16 05:50 92 136/85 04/21/16 04:40 98.0 18 Room Air 04/20/16 20:15 94 Intake and Output 04/20/16 04/20/16 04/21/16 15:00 23:00 07:00 Intake Total 1635 ml 2136.5 ml Output Total 2000 ml 3000 ml Balance -365 ml -863.5 ml Exam Constitutional: alert, oriented, other (blind), well developed Respiratory: clear to auscultation, normal air movement Cardiovascular: nl pulses, regular rate and rhythm Gastrointestinal: non-tender, soft Musculoskeletal: other (right 1st and 2nd toes DM non healing ulcerations ) Extremities: normal pulses, other (no edema, clubbing or cyanosis ) 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: BOX TURNER II-XII intact, nl mental status, nl speech, nl strength, other (blind) Results Result Diagram: 04/21/16 0425 04/21/16 0435 Results 24 hrs Laboratory Tests Test 04/20/16 12:08 04/20/16 17:04 04/20/16 20:24 04/21/16 02:10 Bedside Glucose 235 H 203 205 291 H Test 04/21/16 04:25 04/21/16 04:35 04/21/16 08:18 Blood Morphology Comment Differential Comment MANUAL DIFF Hematocrit 28.0 L Hemoglobin 9.3 L Lymphocytes # 2.6 Lymphocytes % 76.0 H Mean Corpuscular Hemoglobin 30.3 Mean Corpuscular Hemoglobin Concent 33.2 Mean Corpuscular Volume 91.3 Mean Platelet Volume 8.0 Monocytes # 0.1 L Monocytes % 2.0 Neutrophils # 0.7 L Neutrophils % 21.0 L Nucleated Red Blood Cells % 22.0 H Platelet Count 37 L Platelet Estimate PLT APPEAR DECREASED Reactive Lymphocytes % 1.0 Red Blood Count 3.07 L Red Cell Distribution Width 23.1 H White Blood Count 3.4 #L Alanine Aminotransferase (ALT/SGPT) 66 Albumin 3.5 Albumin/Globulin Ratio 0.67 Alkaline Phosphatase 248 H Anion Gap 16 Aspartate Amino Transf (AST/SGOT) 44 Blood Urea Nitrogen 17 Calcium Level 8.8 Carbon Dioxide Level 28 Chloride Level 101 Creatinine 0.85 Direct Bilirubin 0.00 Globulin 5.20 H Glucose Level 292 H Indirect Bilirubin 0.4 Potassium Level 4.6 Sodium Level 140 Total Bilirubin 0.4 Total Protein 8.7 H Bedside Glucose 262 H Medications Medications Current Medications Ondansetron HCl (Zofran Inj) 4 mg Q6H PRN IV NAUSEA AND/OR VOMITING; Start 04/10/16 at 19:00 Nitroglycerin (Nitroglycerin (Sl Tab) 0.4 Mg) 1 tab Q5M PRN SL CHEST PAIN; Start 04/10/16 at 19:00 Acetaminophen (Tylenol Tab) 650 mg Q6H PRN PO PAIN LEVEL 1-3 OR FEVER Last administered on 04/11/16at 23:01; Admin Dose 650 MG; Start 04/10/16 at 19:00 Acetaminophen/ Hydrocodone Bitart ([place] (5/325)) 1 tab Q6H PRN PO PAIN LEVEL 4 -6 Last administered on 04/14/16at 23:25; Admin Dose 1 TAB; Start 04/10/16 at 19: 00 Acetaminophen/ Hydrocodone Bitart ([place] (5/325)) 2 tab Q6H PRN PO PAIN LEVEL 7 -10 Last administered on 04/21/16at 04:30; Admin Dose 2 TAB; Start 04/10/16 at 19:00 Morphine Sulfate (morphine) 2 mg Q4H PRN IV PAIN LEVEL 7-10 Last administered on 04/20/16at 15:23; Admin Dose 2 MG; Start 04/10/16 at 19:00 Magnesium Hydroxide (Milk Of Mag) 30 ml DAILY PRN PO CONSTIPATION Last administered on 04/21/16at 05:00; Admin Dose 30 ML; Start 04/10/16 at 19:00 Bisacodyl (Dulcolax Supp) 10 mg DAILY PRN ME CONSTIPATION; Start 04/10/16 at 19 :00 Pantoprazole (Protonix Tab) 40 mg DAILY@06 PO Last administered on 04/21/16at 04:30; Admin Dose 40 MG; Start 04/11/16 at 06:00 Miscellaneous Information 1 ea NOTE XX ; Start 04/10/16 at 19:00 Glucose (Glutose) 15 gm Q15M PRN PO DECREASED GLUCOSE; Start 04/10/16 at 19:00 Glucose (Glutose) 22.5 gm Q15M PRN PO DECREASED GLUCOSE; Start 04/10/16 at 19: 00 Dextrose (D50w Syringe) 25 ml Q15M PRN IV DECREASED GLUCOSE; Start 04/10/16 at 19:00 Dextrose (D50w Syringe) 50 ml Q15M PRN IV DECREASED GLUCOSE; Start 04/10/16 at 19:00 Glucagon (Glucagen) 1 mg Q15M PRN IM DECREASED GLUCOSE; Start 04/10/16 at 19:00 Glucose (Glutose) 15 gm Q15M PRN BUCCAL DECREASED GLUCOSE; Start 04/10/16 at 19 :00 Metoprolol Tartrate (Lopressor) 100 mg BID PO Last administered on 04/21/16at 08:34; Admin Dose 100 MG; Start 04/11/16 at 09:00 Docusate Sodium (Colace) 100 mg Q12H PO Last administered on 04/21/16at 04:30; Admin Dose 100 MG; Start 04/11/16 at 19:00 Polyethylene Glycol (Miralax) 17 gm DAILY PO Last administered on 04/21/16at 08 :39; Admin Dose 17 GM; Start 04/11/16 at 13:00 Levofloxacin (Levaquin) 500 mg DAILY@06 PO Last administered on 04/21/16at 04: 30; Admin Dose 500 MG; Start 04/15/16 at 14:00 Collagenase (Santyl) 1 applic DAILY TOP Last administered on 04/20/16at 09:00; Admin Dose 1 APPLIC; Start 04/17/16 at 16:00 Allopurinol (Zyloprim) 300 mg DAILY PO Last administered on 04/21/16at 08:33; Admin Dose 300 MG; Start 04/18/16 at 09:30 IV Flush 10 ml 10 ml PRN PRN IV IV PROTOCOL; Start 04/18/16 at 11:30 Ondansetron HCl 8 mg/Dexamethasone 10 mg/ Diphenhydramine HCl 25 mg/Sodium Chloride 55.5 ml @ 110 mls/hr 1230 IVPB Last administered on 04/20/16at 19:02 ; Admin Dose 110 MLS/HR; Start 04/18/16 at 12:30; Stop 04/22/16 at 13:01 Cladribine 17 mg/ Sodium Chloride 500 ml @ 21 mls/hr 13 IV Last administered on 04/20/16at 19:39; Admin Dose 21 MLS/HR; Start 04/18/16 at 13:00; Stop 04/23 at 12:49 Sodium Chloride (NS) 1,000 ml @ 75 mls/hr [id number] IV Last administered on at 04:31; Admin Dose 75 MLS/HR; Start 04/18/16 at 12:30 Dexamethasone (Decadron) 10 mg Q4H PRN IV REACTION; Start 04/18/16 at 13:00 Diphenhydramine HCl 25 mg 25 mg Q4H PRN IV ALLERGIC REACTION; Start 04/18/16 at 13:00 Ondansetron HCl 8 mg/Sodium Chloride 54 ml @ 110 mls/hr Q8H PRN IV NAUSEA; Start 04/18/16 at 13:00 Vancomycin HCl/ Sodium Chloride (Vancocin/NS) 250 ml @ 83.333 mls/ hr Q12H IVPB Last administered on 04/21/16at 04:30; Admin Dose 83.333 MLS/HR; Start at 16:00 Lisinopril (Zestril) 10 mg BID PO Last administered on 04/21/16 08:34; Admin Dose 10 MG; Start 04/20/16 at 21:00 Amlodipine Besylate (Norvasc) 10 mg BID PO Last administered on 04/21/16at 05: 00; Admin Dose 10 MG; Start 04/21/16 at 04:55 Miscellaneous Information (*Order Clarification Bulletin) MEDICATION REQUIRES CLARIFICATI... Q8H XX Last administered on 04/21/16at 05:00; Admin Dose 1 EA; Start 04/21/16 at 05:00 Insulin Glargine (Lantus) 30 unit QHS SC ; Start 04/21/16 at 21:00 LAUREL ANDERSON Apr 21, 2016 11:47
[2016-04-21] MEDS ORDERED: hydrALAzine 20 MG INJ IV PRN (12:00)
--- NOTE | 2016-04-21 13:00 | CONS ---
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 Problems: Additional Assessment/Plan -Pt is now day 3 of cladribine 0.14mg/kg/day continues IV infusion x 5 days. continue chemotherapy even while patient is on antibiotics. 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 we have to treat the underlying leukemia to help him fight his multiple chronic infections. will continue chemotherapy -given patient is CD 20 positive will give a dose of Rituxan after cladribine infusion is done. orders have been written - hemolysis unlikely with high haptoglobin, normal LDH and peripheral smear without schistocytes. -f/u blood cultures as pt appears to have a disseminated infection which may be the cause of this severe anemia. cultures are thus far negative -allopurinol started as prophylaxis for tumor lysis syndrome Approximately 40 min were spent at patient's bedside and in coordination of his care Consultation Date/Type/Reason Admit Date/Time Apr 10, 2016 at 16:55 Initial Consult Date 04/11/16 Type of Consultation: Hematology Reason for Consultation hairy cell leukemia Referring Provider: LAUREL ANDERSON 24 HR Interval Summary Free Text/Dictation continues on cladribine Exam/Review of Systems Vital Signs Vitals Vital Signs Date Time Temp Pulse Resp B/P Pulse Ox O2 Delivery O2 Flow Rate FiO2 04/21/16 05:50 92 136/85 04/21/16 04:40 98.0 18 Room Air 04/20/16 20:15 94 Intake and Output 04/20/16 04/20/16 04/21/16 15:00 23:00 07:00 Intake Total 1635 ml 2136.5 ml Output Total 2000 ml 3000 ml Balance -365 ml -863.5 ml Exam Constitutional: alert, oriented Psych: no complaints Head: atraumatic, normocephalic Eyes: other (blind) ENMT: nl external ears & nose, nl lips & teeth Neck: non-tender, supple Respiratory: clear to auscultation, normal air movement Cardiovascular: regular rate and rhythm Gastrointestinal: nl liver, spleen, soft Musculoskeletal: nl extremities to inspection, nl gait and stance Extremities: normal pulses Results Result Diagram: 04/21/16 0425 04/21/16 0435 Results 24 hrs Laboratory Tests Test 04/20/16 17:04 04/20/16 20:24 04/21/16 02:10 04/21/16 04:25 Bedside Glucose 203 205 291 H Blood Morphology Comment Differential Comment MANUAL DIFF Hematocrit 28.0 L Hemoglobin 9.3 L Lymphocytes # 2.6 Lymphocytes % 76.0 H Mean Corpuscular Hemoglobin 30.3 Mean Corpuscular Hemoglobin Concent 33.2 Mean Corpuscular Volume 91.3 Mean Platelet Volume 8.0 Monocytes # 0.1 L Monocytes % 2.0 Neutrophils # 0.7 L Neutrophils % 21.0 L Nucleated Red Blood Cells % 22.0 H Platelet Count 37 L Platelet Estimate PLT APPEAR DECREASED Reactive Lymphocytes % 1.0 Red Blood Count 3.07 L Red Cell Distribution Width 23.1 H White Blood Count 3.4 #L Test 04/21/16 04:35 04/21/16 08:18 04/21/16 11:44 Alanine Aminotransferase (ALT/SGPT) 66 Albumin 3.5 Albumin/Globulin Ratio 0.67 Alkaline Phosphatase 248 H Anion Gap 16 Aspartate Amino Transf (AST/SGOT) 44 Blood Urea Nitrogen 17 Calcium Level 8.8 Carbon Dioxide Level 28 Chloride Level 101 Creatinine 0.85 Direct Bilirubin 0.00 Globulin 5.20 H Glucose Level 292 H Indirect Bilirubin 0.4 Potassium Level 4.6 Sodium Level 140 Total Bilirubin 0.4 Total Protein 8.7 H Bedside Glucose 262 H 248 H Medications Medications Current Medications Ondansetron HCl (Zofran Inj) 4 mg Q6H PRN IV NAUSEA AND/OR VOMITING; Start 04/10/16 at 19:00 Nitroglycerin (Nitroglycerin (Sl Tab) 0.4 Mg) 1 tab Q5M PRN SL CHEST PAIN; Start 04/10/16 at 19:00 Acetaminophen (Tylenol Tab) 650 mg Q6H PRN PO PAIN LEVEL 1-3 OR FEVER Last administered on 04/11/16at 23:01; Admin Dose 650 MG; Start 04/10/16 at 19:00 Acetaminophen/ Hydrocodone Bitart ([place] (5/325)) 1 tab Q6H PRN PO PAIN LEVEL 4 -6 Last administered on 04/14/16at 23:25; Admin Dose 1 TAB; Start 04/10/16 at 19: 00 Acetaminophen/ Hydrocodone Bitart ([place] (5/325)) 2 tab Q6H PRN PO PAIN LEVEL 7 -10 Last administered on 04/21/16at 04:30; Admin Dose 2 TAB; Start 04/10/16 at 19:00 Morphine Sulfate (morphine) 2 mg Q4H PRN IV PAIN LEVEL 7-10 Last administered on 04/20/16at 15:23; Admin Dose 2 MG; Start 04/10/16 at 19:00 Magnesium Hydroxide (Milk Of Mag) 30 ml DAILY PRN PO CONSTIPATION Last administered on 04/21/16at 05:00; Admin Dose 30 ML; Start 04/10/16 at 19:00 Bisacodyl (Dulcolax Supp) 10 mg DAILY PRN RI CONSTIPATION; Start 04/10/16 at 19 :00 Pantoprazole (Protonix Tab) 40 mg DAILY@06 PO Last administered on 04/21/16at 04:30; Admin Dose 40 MG; Start 04/11/16 at 06:00 Miscellaneous Information 1 ea NOTE XX ; Start 04/10/16 at 19:00 Glucose (Glutose) 15 gm Q15M PRN PO DECREASED GLUCOSE; Start 04/10/16 at 19:00 Glucose (Glutose) 22.5 gm Q15M PRN PO DECREASED GLUCOSE; Start 04/10/16 at 19: 00 Dextrose (D50w Syringe) 25 ml Q15M PRN IV DECREASED GLUCOSE; Start 04/10/16 at 19:00 Dextrose (D50w Syringe) 50 ml Q15M PRN IV DECREASED GLUCOSE; Start 04/10/16 at 19:00 Glucagon (Glucagen) 1 mg Q15M PRN IM DECREASED GLUCOSE; Start 04/10/16 at 19:00 Glucose (Glutose) 15 gm Q15M PRN BUCCAL DECREASED GLUCOSE; Start 04/10/16 at 19 :00 Metoprolol Tartrate (Lopressor) 100 mg BID PO Last administered on 04/21/16at 08:34; Admin Dose 100 MG; Start 04/11/16 at 09:00 Docusate Sodium (Colace) 100 mg Q12H PO Last administered on 04/21/16at 04:30; Admin Dose 100 MG; Start 04/11/16 at 19:00 Polyethylene Glycol (Miralax) 17 gm DAILY PO Last administered on 04/21/16at 08 :39; Admin Dose 17 GM; Start 04/11/16 at 13:00 Levofloxacin (Levaquin) 500 mg DAILY@06 PO Last administered on 04/21/16at 04: 30; Admin Dose 500 MG; Start 04/15/16 at 14:00 Collagenase (Santyl) 1 applic DAILY TOP Last administered on 04/20/16at 09:00; Admin Dose 1 APPLIC; Start 04/17/16 at 16:00 Allopurinol (Zyloprim) 300 mg DAILY PO Last administered on 04/21/16at 08:33; Admin Dose 300 MG; Start 04/18/16 at 09:30 IV Flush 10 ml 10 ml PRN PRN IV IV PROTOCOL; Start 04/18/16 at 11:30 Ondansetron HCl 8 mg/Dexamethasone 10 mg/ Diphenhydramine HCl 25 mg/Sodium Chloride 55.5 ml @ 110 mls/hr 1230 IVPB Last administered on 04/20/16at 19:02 ; Admin Dose 110 MLS/HR; Start 04/18/16 at 12:30; Stop 04/22/16 at 13:01 Cladribine 17 mg/ Sodium Chloride 500 ml @ 21 mls/hr 13 IV Last administered on 04/20/16at 19:39; Admin Dose 21 MLS/HR; Start 04/18/16 at 13:00; Stop 04/23 at 12:49 Sodium Chloride (NS) 1,000 ml @ 75 mls/hr [id number] IV Last administered on at 04:31; Admin Dose 75 MLS/HR; Start 04/18/16 at 12:30 Dexamethasone (Decadron) 10 mg Q4H PRN IV REACTION; Start 04/18/16 at 13:00 Diphenhydramine HCl 25 mg 25 mg Q4H PRN IV ALLERGIC REACTION; Start 04/18/16 at 13:00 Ondansetron HCl 8 mg/Sodium Chloride 54 ml @ 110 mls/hr Q8H PRN IV NAUSEA; Start 04/18/16 at 13:00 Vancomycin HCl/ Sodium Chloride (Vancocin/NS) 250 ml @ 83.333 mls/ hr Q12H IVPB Last administered on 04/21/16at 04:30; Admin Dose 83.333 MLS/HR; Start at 16:00 Insulin Glargine (Lantus) 30 unit QHS SC ; Start 04/21/16 at 21:00 Amlodipine Besylate (Norvasc) 5 mg BID PO ; Start 04/21/16 at 21:00 Lisinopril (Zestril) 20 mg BID PO ; Start 04/21/16 at 21:00 Hydralazine HCl (Apresoline) 10 mg Q8H PRN IV ELEVATED BLOOD PRESSURE; Start 04/21/16 at 12:00 TOY DWYER M.D. Apr 21, 2016 13:00
--- NOTE | 2016-04-21 17:07 | PN ---
DATE: 04/21/2016 SUBJECTIVE: No acute changes. Patient is alert, denies pain, discomfort, lying comfortably in bed, no fevers. LABORATORY: WBC 3.4, platelets 37. BUN 17, creatinine 0.85. ANTIMICROBIALS: 1. Vancomycin. 2. Levaquin. Vancomycin level on 04/20/2016 was 15.6. INDWELLINGS: The patient has left upper extremity PICC line placed on 04/18/2016. PHYSICAL EXAMINATION: GENERAL: Obese, well-developed, middle-aged man who is alert, in no distress. HEENT: Head atraumatic, normocephalic. Sclerae anicteric. Buccal mucosa pink. NECK: Supple, trachea midline. CHEST: Rise symmetrical. Breath sounds diminished at the bases. HEART: S1, S2. ABDOMEN: Soft, bowel tones present. EXTREMITIES: Bilateral edema. SKIN: No jaundice, no cyanosis. ASSESSMENT: 1. Right second toe osteomyelitis with cellulitis, podiatry on case, patient remains on antibiotics . 2. Newly diagnosed hairy cell leukemia, patient was started on chemotherapy and oncology follows. 3. Diabetes. 4. Hypertension. 5. Legally blind. PLAN: The patient remains stable. No fevers. Vancomycin level appropriate renal function within n ormal limits. We will continue him on current regimen in regards to antibiotics. Dictated By: JUVENAL SANCHEZ [employer]EL[employer] OFFICER for REJI BEDOYA/JOSE Conf#: [id number] DID#: [id number]
[2016-04-21] MEDS ORDERED: INSULIN GLARGINE [LANtus] 3 ML PEN SC SCH (21:00)
[2016-04-21] MEDS: AMLODIPINE 5 MG TAB PO SCH (21:31)
[2016-04-21] MEDS: LISINOPRIL 20 MG TAB PO SCH (21:31)
[2016-04-21] MEDS: DIPHENHYDRAMINE IVPB SCH (22:34)
[2016-04-21] MEDS: [UNRECOGNIZED DRUG - OTHER] IVPB SCH (22:34)
[2016-04-21] MEDS: DEXAMETHASONE IVPB SCH (22:34)
[2016-04-21] MEDS: ONDANSETRON IVPB SCH (22:34)
[2016-04-21] MEDS: CLADRIBINE IV SCH (23:04)
[2016-04-21] MEDS: SOD CHLORIDE 0.9% IV SCH (23:04)
[2016-04-22] VITALS (10 sets, daily range): BP systolic 120–156; BP diastolic 69–92; PULSE 78–91; RESP 16–18
[2016-04-22] MEDS: VANCOMYCIN 1.5 GM in SOD CHLORIDE 0.9% 250 ML IVPB SCH ×2 (04:20→16:32)
[2016-04-22] MEDS: LEVOFLOXACIN 500 MG TAB PO SCH (06:27)
[2016-04-22] MEDS: PANTOPRAZOLE (EC) 40 MG TAB PO SCH (06:27)
[2016-04-22] MEDS: DOCUSATE SODIUM 100 MG CAP PO SCH ×2 (06:27→19:00)
[2016-04-22] MEDS: SOD CHLORIDE 0.9% 1,000 ML IV SCH ×2 (06:31→23:56)
[2016-04-22 08:22] LABS: HEMATOCRIT 27.8 % (42.0-52.0); HEMOGLOBIN 9.1 g/dl (14.0-18.0); MEAN CORPUSCULAR HEMOGLOBIN 29.9 pg (29.0-33.0); MEAN CORPUSCULAR HGB CONC 32.7 g/dl (32.0-37.0); MEAN CORPUSCULAR VOLUME 91.2 fl (82.0-101.0); MEAN PLATELET VOLUME 8.6 fl (7.4-10.4); PLATELET COUNT 37 10^3/UL (140-440); RED BLOOD COUNT 3.05 10^6/ul (4.70-6.10); RED CELL DISTRIBUTION WIDTH 23.1 % (11.5-14.5); UNCORRECTED WBC 1.4 10^3/ul (4.8-10.8); WHITE BLOOD COUNT 1.2 10^3/ul (4.8-10.8)
[2016-04-22 08:26] LABS: CONDITION 1; LH ANALYZER COMMENTS 1; SUSPECT 1
[2016-04-22] MEDS: INSULIN ASPART [NOVOLOG] 3 ML PEN SC SCH ×5 (08:29→20:35)
[2016-04-22 08:31] LABS: ALBUMIN 3.4 g/dl (3.3-4.9); POTASSIUM 4.7 mmol/L (3.5-5.1)
[2016-04-22] MEDS: METOPROLOL 100 MG TAB PO SCH ×2 (08:31→20:30)
[2016-04-22] MEDS: ALLOPURINOL 300 MG TAB PO SCH (08:31)
[2016-04-22] MEDS: POLYETHYLENE GLYCOL 17 GM PACKET PO SCH (08:32)
[2016-04-22] MEDS: LISINOPRIL 20 MG TAB PO SCH ×2 (08:32→20:30)
[2016-04-22] MEDS: AMLODIPINE 5 MG TAB PO SCH ×2 (08:32→20:29)
[2016-04-22 08:33] LABS: BILIRUBIN,INDIRECT 0.5 mg/dl (0-1.1); BILIRUBIN,TOTAL 0.5 mg/dl (0.2-1.3); CREATININE 0.82 mg/dl (0.61-1.24)
[2016-04-22 08:34] LABS: CALCIUM 8.6 mg/dl (8.4-10.2); TOTAL PROTEIN 8.6 g/dl (6.1-8.1)
[2016-04-22 08:41] LABS: ALBUMIN/GLOBULIN RATIO 0.65
[2016-04-22 11:25] LABS: ANISOCYTOSIS 2+; LYMPHOCYTES # 0.6 10^3/ul (0.8-2.9); NEUTROPHIL # 0.5 10^3/ul (1.6-7.5)
[2016-04-22 11:26] LABS: OVALOCYTES OCCASIONAL; POIKILOCYTOSIS 1+; POLYCHROMASIA 1+; TARGET CELLS OCCASIONAL
[2016-04-22 11:27] LABS: PLATELET ESTIMATE PLT APPEAR DECREASED
--- NOTE | 2016-04-22 12:08 | PN ---
Date/Time of Note Date/Time of Note DATE: 04/22/16 TIME: 11:59 Assessment/Plan VTE Prophylaxis VTE Prophylaxis Intervention: SCD's Lines/Catheters IV Catheter Type (from [facility] PICC Line Central line still needed: Yes (Receiving active chemotherapy) Urinary Cath still in place: No Assessment/Plan Assessment/Plan [facility] 1. 55-year-old man with newly diagnosed hairy cell leukemia, now under treatment with cladribine per Dr. Thelma Flannery. Admitted 04/10/16 with acute on chronic anemia and thrombocytopenia. He is HIV negative. WBC lower today to 1.2k/ul, with ANC 500. Hematocrit stable. * Initiate respiratory precautions * Cladribine day 5, per Dr Flannery * Send BK virus assay; necessary rule-out for chronic infection, prior to rituximab * Anticipate treatment with rituiximab next; orders written. 2. Acute infection of his right 1st and 2nd toes. Also with a maculopapular rash on admission. He has a history of methicillin-resistant Staph aureus skin and soft-tissue infection years ago requiring extensive debridement of the left upper extremity. MRI of the foot shows osteomyelitis. JOSE J negative. * Continue Vancomycin and Levaquin per ID * Blood cultures without growth so far, with wound cultures pending. * Wound care per Dr Thomas (podiatry) 3. Diabetes retinopathy. A1c 7.2%. Sugars today are in the 300s. * Increase Lantus to 40u at bedtime, with 10u Novolog preprandially * Hold glyburide. * Continue Tradjenta. * Fall precautions. 4. Cardiomegaly, EF 50%. No further episodes of SVT * Continue Lopressor * Electrolytes stable again today. * S/p negative JOSE J 5. Hypertension. * Continue beta blockers and Norvasc * Tolerating higher dose of Lisinopril (20 mg po bid) * Hydralazine prn for SBP > 160. 6. Constipation. Had a normal bowel movement today. * Continue Miralax and colace 7. 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 He says it is improving now. This is a viral rash, exacerbated by immune suppression. 8. Prophylaxis. Proton pump inhibitors for GI prophylaxis and SCDs for DVT prophylaxis. 9. DISPOSITION: On chemo. F/u wound care and follow up further ID and Podiatry recs. Will likely require SNF discharge. Bárbara Perez MD PhD [phone] Exam/Review of Systems Vital Signs Vitals Vital Signs Date Time Temp Pulse Resp B/P Pulse Ox O2 Delivery O2 Flow Rate FiO2 04/22/16 08:37 98.2 85 17 144/85 97 04/22/16 07:00 Room Air Intake and Output 04/21/16 04/21/16 04/22/16 15:00 23:00 07:00 Intake Total 1774.5 ml 2076 ml Output Total 1000 ml 2600 ml Balance 774.5 ml -524 ml Exam Constitutional: Cheerful, comfortable, visually impaired Respiratory: clear bilaterally, good symmetric air movement Cardiovascular: normal pulses, regular rate and rhythm Gastrointestinal: non-tender, soft, no hepatosplenomegaly Musculoskeletal: Right 1st and 2nd toes wrapped for ulcerations; bandage clean and dry. Extremities: normal pulses; no edema, clubbing or cyanosis 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: DATA INPUT CLERK II-XII intact, nl mental status, nl speech, nl strength, blind. Skin: Nodular lesions down the right arm suggestive of Kaposi's sarcoma; non- excoriated. Results Result Diagram: 04/22/16 0815 04/22/16 0815 Results 24 hrs Laboratory Tests Test 04/21/16 17:47 04/21/16 21:34 04/22/16 08:03 04/22/16 08:15 Bedside Glucose 234 H 177 314 H Alanine Aminotransferase (ALT/SGPT) 72 H Albumin 3.4 Albumin/Globulin Ratio 0.65 Alkaline Phosphatase 238 H Anion Gap 15 Anisocytosis 2+ Aspartate Amino Transf (AST/SGOT) 40 Blood Morphology Comment Blood Urea Nitrogen 19 Calcium Level 8.6 Carbon Dioxide Level 27 Chloride Level 99 Creatinine 0.82 Direct Bilirubin 0.00 Globulin 5.20 H Glucose Level 351 H Hematocrit 27.8 L Hemoglobin 9.1 L Indirect Bilirubin 0.5 Lymphocytes # 0.6 L Lymphocytes % 54.0 H Mean Corpuscular Hemoglobin 29.9 Mean Corpuscular Hemoglobin Concent 32.7 Mean Corpuscular Volume 91.2 Mean Platelet Volume 8.6 Monocytes # 0.0 L Monocytes % 2.0 Neutrophils # 0.5 L Neutrophils % 44.0 Nucleated Red Blood Cells % 56.0 H Ovalocytes OCCASIONAL Platelet Count 37 L Platelet Estimate PLT APPEAR DECREASED Polychromasia 1+ Potassium Level 4.7 Red Blood Count 3.05 L Red Cell Distribution Width 23.1 H Sodium Level 136 Target Cells OCCASIONAL Total Bilirubin 0.5 Total Protein 8.6 H White Blood Count 1.2 #L Test 04/22/16 11:42 Bedside Glucose 346 H Medications Medications Current Medications Ondansetron HCl (Zofran Inj) 4 mg Q6H PRN IV NAUSEA AND/OR VOMITING; Start 04/10/16 at 19:00 Nitroglycerin (Nitroglycerin (Sl Tab) 0.4 Mg) 1 tab Q5M PRN SL CHEST PAIN; Start 04/10/16 at 19:00 Acetaminophen (Tylenol Tab) 650 mg Q6H PRN PO PAIN LEVEL 1-3 OR FEVER Last administered on 04/11/16at 23:01; Admin Dose 650 MG; Start 04/10/16 at 19:00 Acetaminophen/ Hydrocodone Bitart ([place] (5/325)) 1 tab Q6H PRN PO PAIN LEVEL 4 -6 Last administered on 04/14/16at 23:25; Admin Dose 1 TAB; Start 04/10/16 at 19: 00 Acetaminophen/ Hydrocodone Bitart ([place] (5/325)) 2 tab Q6H PRN PO PAIN LEVEL 7 -10 Last administered on 04/21/16at 04:30; Admin Dose 2 TAB; Start 04/10/16 at 19:00 Morphine Sulfate (morphine) 2 mg Q4H PRN IV PAIN LEVEL 7-10 Last administered on 04/20/16at 15:23; Admin Dose 2 MG; Start 04/10/16 at 19:00 Magnesium Hydroxide (Milk Of Mag) 30 ml DAILY PRN PO CONSTIPATION Last administered on 04/21/16at 05:00; Admin Dose 30 ML; Start 04/10/16 at 19:00 Bisacodyl (Dulcolax Supp) 10 mg DAILY PRN OR CONSTIPATION; Start 04/10/16 at 19 :00 Pantoprazole (Protonix Tab) 40 mg DAILY@06 PO Last administered on 04/22/16at 06:27; Admin Dose 40 MG; Start 04/11/16 at 06:00 Miscellaneous Information 1 ea NOTE XX ; Start 04/10/16 at 19:00 Glucose (Glutose) 15 gm Q15M PRN PO DECREASED GLUCOSE; Start 04/10/16 at 19:00 Glucose (Glutose) 22.5 gm Q15M PRN PO DECREASED GLUCOSE; Start 04/10/16 at 19: 00 Dextrose (D50w Syringe) 25 ml Q15M PRN IV DECREASED GLUCOSE; Start 04/10/16 at 19:00 Dextrose (D50w Syringe) 50 ml Q15M PRN IV DECREASED GLUCOSE; Start 04/10/16 at 19:00 Glucagon (Glucagen) 1 mg Q15M PRN IM DECREASED GLUCOSE; Start 04/10/16 at 19:00 Glucose (Glutose) 15 gm Q15M PRN BUCCAL DECREASED GLUCOSE; Start 04/10/16 at 19 :00 Metoprolol Tartrate (Lopressor) 100 mg BID PO Last administered on 04/22/16at 08:31; Admin Dose 100 MG; Start 04/11/16 at 09:00 Docusate Sodium (Colace) 100 mg Q12H PO Last administered on 04/22/16at 06:27; Admin Dose 100 MG; Start 04/11/16 at 19:00 Polyethylene Glycol (Miralax) 17 gm DAILY PO Last administered on 04/22/16at 08 :32; Admin Dose 17 GM; Start 04/11/16 at 13:00 Levofloxacin (Levaquin) 500 mg DAILY@06 PO Last administered on 04/22/16at 06: 27; Admin Dose 500 MG; Start 04/15/16 at 14:00 Collagenase (Santyl) 1 applic DAILY TOP Last administered on 04/20/16at 09:00; Admin Dose 1 APPLIC; Start 04/17/16 at 16:00 Allopurinol (Zyloprim) 300 mg DAILY PO Last administered on 04/22/16at 08:31; Admin Dose 300 MG; Start 04/18/16 at 09:30 IV Flush 10 ml 10 ml PRN PRN IV IV PROTOCOL; Start 04/18/16 at 11:30 Ondansetron HCl 8 mg/Dexamethasone 10 mg/ Diphenhydramine HCl 25 mg/Sodium Chloride 55.5 ml @ 110 mls/hr 1230 IVPB Last administered on 04/21/16at 22:34 ; Admin Dose 110 MLS/HR; Start 04/18/16 at 12:30; Stop 04/22/16 at 13:01 Cladribine 17 mg/ Sodium Chloride 500 ml @ 21 mls/hr 13 IV Last administered on 04/21/16at 23:04; Admin Dose 21 MLS/HR; Start 04/18/16 at 13:00; Stop 04/23 at 12:49 Sodium Chloride (NS) 1,000 ml @ 75 mls/hr [id number] IV Last administered on at 06:31; Admin Dose 75 MLS/HR; Start 04/18/16 at 12:30 Dexamethasone (Decadron) 10 mg Q4H PRN IV REACTION; Start 04/18/16 at 13:00 Diphenhydramine HCl 25 mg 25 mg Q4H PRN IV ALLERGIC REACTION; Start 04/18/16 at 13:00 Ondansetron HCl 8 mg/Sodium Chloride 54 ml @ 110 mls/hr Q8H PRN IV NAUSEA; Start 04/18/16 at 13:00 Vancomycin HCl/ Sodium Chloride (Vancocin/NS) 250 ml @ 83.333 mls/ hr Q12H IVPB Last administered on 04/22/16at 04:20; Admin Dose 83.333 MLS/HR; Start at 16:00 Insulin Glargine (Lantus) 30 unit QHS SC Last administered on 04/21/16at 21:38 ; Admin Dose 30 UNIT; Start 04/21/16 at 21:00 Amlodipine Besylate (Norvasc) 5 mg BID PO Last administered on 04/22/16at 08:32 ; Admin Dose 5 MG; Start 04/21/16 at 21:00 Lisinopril (Zestril) 20 mg BID PO Last administered on 04/22/16at 08:32; Admin Dose 20 MG; Start 04/21/16 at 21:00 Hydralazine HCl (Apresoline) 10 mg Q8H PRN IV ELEVATED BLOOD PRESSURE; Start 04/21/16 at 12:00 MALLIKA PEREZ M.D. Apr 22, 2016 12:08
--- NOTE | 2016-04-22 12:12 | CONS ---
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 Vancomycin. 2. Levaquin PHYSICAL EXAMINATION: GENERAL: Obese M, resting, awake, alert, VSS, NAD HEENT: Unremarkable except low vision NECK: Supple. Trachea midline. LUNGS: Chest rise symmetrical, without dyspnea on observation ABDOMEN: Soft EXTREMITIES: With right foot edema ID ASSESSMENT: 1. 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 Pancytopenia due to #1 3. Right diabetic foot ulcer with questionable toe osteomyelitis=> podiatry on case. * MRI showed evidence of osteomyelitis at the second middle and distal phalanges. 4. s/p Systemic inflammatory response syndrome with fever on admission, elevated ESR, significant thrombocytopenia and anemia. * JOSE J revealed no vegetations 5. Diabetes. 6. Hypertension. 7. Legally blind. (-)MRSA Nares Screen CURRENT ABX: Vanco IV + Levaquin PO s/p Zosyn ID RECOMMENDATIONS/PLAN: Clinically stable = continue current ABX f/u podiatry rec-s. Chemo per oncology rec-s . . Problems: Consultation Date/Type/Reason Admit Date/Time Apr 10, 2016 at 16:55 Initial Consult Date 04/11/16 Type of Consultation: ID Referring Provider: LAUREL ANDERSON Exam/Review of Systems Vital Signs Vitals Vital Signs Date Time Temp Pulse Resp B/P Pulse Ox O2 Delivery O2 Flow Rate FiO2 04/22/16 08:37 98.2 85 17 144/85 97 04/22/16 07:00 Room Air Intake and Output 04/21/16 04/21/16 04/22/16 15:00 23:00 07:00 Intake Total 1774.5 ml 2076 ml Output Total 1000 ml 2600 ml Balance 774.5 ml -524 ml Results Result Diagram: 04/22/16 0815 04/22/16 0815 Results 24 hrs Laboratory Tests Test 04/21/16 17:47 04/21/16 21:34 04/22/16 08:03 04/22/16 08:15 Bedside Glucose 234 H 177 314 H Alanine Aminotransferase (ALT/SGPT) 72 H Albumin 3.4 Albumin/Globulin Ratio 0.65 Alkaline Phosphatase 238 H Anion Gap 15 Anisocytosis 2+ Aspartate Amino Transf (AST/SGOT) 40 Blood Morphology Comment Blood Urea Nitrogen 19 Calcium Level 8.6 Carbon Dioxide Level 27 Chloride Level 99 Creatinine 0.82 Direct Bilirubin 0.00 Globulin 5.20 H Glucose Level 351 H Hematocrit 27.8 L Hemoglobin 9.1 L Indirect Bilirubin 0.5 Lymphocytes # 0.6 L Lymphocytes % 54.0 H Mean Corpuscular Hemoglobin 29.9 Mean Corpuscular Hemoglobin Concent 32.7 Mean Corpuscular Volume 91.2 Mean Platelet Volume 8.6 Monocytes # 0.0 L Monocytes % 2.0 Neutrophils # 0.5 L Neutrophils % 44.0 Nucleated Red Blood Cells % 56.0 H Ovalocytes OCCASIONAL Platelet Count 37 L Platelet Estimate PLT APPEAR DECREASED Polychromasia 1+ Potassium Level 4.7 Red Blood Count 3.05 L Red Cell Distribution Width 23.1 H Sodium Level 136 Target Cells OCCASIONAL Total Bilirubin 0.5 Total Protein 8.6 H White Blood Count 1.2 #L Test 04/22/16 11:42 Bedside Glucose 346 H Medications Medications Current Medications Ondansetron HCl (Zofran Inj) 4 mg Q6H PRN IV NAUSEA AND/OR VOMITING; Start 04/10/16 at 19:00 Nitroglycerin (Nitroglycerin (Sl Tab) 0.4 Mg) 1 tab Q5M PRN SL CHEST PAIN; Start 04/10/16 at 19:00 Acetaminophen (Tylenol Tab) 650 mg Q6H PRN PO PAIN LEVEL 1-3 OR FEVER Last administered on 04/11/16at 23:01; Admin Dose 650 MG; Start 04/10/16 at 19:00 Acetaminophen/ Hydrocodone Bitart ([place] (5/325)) 1 tab Q6H PRN PO PAIN LEVEL 4 -6 Last administered on 04/14/16at 23:25; Admin Dose 1 TAB; Start 04/10/16 at 19: 00 Acetaminophen/ Hydrocodone Bitart ([place] (5/325)) 2 tab Q6H PRN PO PAIN LEVEL 7 -10 Last administered on 04/21/16at 04:30; Admin Dose 2 TAB; Start 12/5/16 at 19:00 Morphine Sulfate (morphine) 2 mg Q4H PRN IV PAIN LEVEL 7-10 Last administered on 04/20/16at 15:23; Admin Dose 2 MG; Start 04/10/16 at 19:00 Magnesium Hydroxide (Milk Of Mag) 30 ml DAILY PRN PO CONSTIPATION Last administered on 04/21/16at 05:00; Admin Dose 30 ML; Start 04/10/16 at 19:00 Bisacodyl (Dulcolax Supp) 10 mg DAILY PRN [place] CONSTIPATION; Start 04/10/16 at 19 :00 Pantoprazole (Protonix Tab) 40 mg DAILY@06 PO Last administered on 04/22/16at 06:27; Admin Dose 40 MG; Start 04/11/16 at 06:00 Miscellaneous Information 1 ea NOTE XX ; Start 04/10/16 at 19:00 Glucose (Glutose) 15 gm Q15M PRN PO DECREASED GLUCOSE; Start 04/10/16 at 19:00 Glucose (Glutose) 22.5 gm Q15M PRN PO DECREASED GLUCOSE; Start 04/10/16 at 19: 00 Dextrose (D50w Syringe) 25 ml Q15M PRN IV DECREASED GLUCOSE; Start 04/10/16 at 19:00 Dextrose (D50w Syringe) 50 ml Q15M PRN IV DECREASED GLUCOSE; Start 04/10/16 at 19:00 Glucagon (Glucagen) 1 mg Q15M PRN IM DECREASED GLUCOSE; Start 04/10/16 at 19:00 Glucose (Glutose) 15 gm Q15M PRN BUCCAL DECREASED GLUCOSE; Start 04/10/16 at 19 :00 Metoprolol Tartrate (Lopressor) 100 mg BID PO Last administered on 04/22/16at 08:31; Admin Dose 100 MG; Start 04/11/16 at 09:00 Docusate Sodium (Colace) 100 mg Q12H PO Last administered on 04/22/16at 06:27; Admin Dose 100 MG; Start 04/11/16 at 19:00 Polyethylene Glycol (Miralax) 17 gm DAILY PO Last administered on 04/22/16at 08 :32; Admin Dose 17 GM; Start 04/11/16 at 13:00 Levofloxacin (Levaquin) 500 mg DAILY@06 PO Last administered on 04/22/16at 06: 27; Admin Dose 500 MG; Start 04/15/16 at 14:00 Collagenase (Santyl) 1 applic DAILY TOP Last administered on 04/20/16at 09:00; Admin Dose 1 APPLIC; Start 04/17/16 at 16:00 Allopurinol (Zyloprim) 300 mg DAILY PO Last administered on 04/22/16at 08:31; Admin Dose 300 MG; Start 04/18/16 at 09:30 IV Flush 10 ml 10 ml PRN PRN IV IV PROTOCOL; Start 04/18/16 at 11:30 Ondansetron HCl 8 mg/Dexamethasone 10 mg/ Diphenhydramine HCl 25 mg/Sodium Chloride 55.5 ml @ 110 mls/hr 1230 IVPB Last administered on 04/21/16at 22:34 ; Admin Dose 110 MLS/HR; Start 04/18/16 at 12:30; Stop 04/22/16 at 13:01 Cladribine 17 mg/ Sodium Chloride 500 ml @ 21 mls/hr 13 IV Last administered on 04/21/16at 23:04; Admin Dose 21 MLS/HR; Start 04/18/16 at 13:00; Stop 04/23 at 12:49 Sodium Chloride (NS) 1,000 ml @ 75 mls/hr [id number] IV Last administered on at 06:31; Admin Dose 75 MLS/HR; Start 04/18/16 at 12:30 Dexamethasone (Decadron) 10 mg Q4H PRN IV REACTION; Start 04/18/16 at 13:00 Diphenhydramine HCl 25 mg 25 mg Q4H PRN IV ALLERGIC REACTION; Start 04/18/16 at 13:00 Ondansetron HCl 8 mg/Sodium Chloride 54 ml @ 110 mls/hr Q8H PRN IV NAUSEA; Start 04/18/16 at 13:00 Vancomycin HCl/ Sodium Chloride (Vancocin/NS) 250 ml @ 83.333 mls/ hr Q12H IVPB Last administered on 04/22/16at 04:20; Admin Dose 83.333 MLS/HR; Start at 16:00 Insulin Glargine (Lantus) 30 unit QHS SC Last administered on 04/21/16at 21:38 ; Admin Dose 30 UNIT; Start 04/21/16 at 21:00 Amlodipine Besylate (Norvasc) 5 mg BID PO Last administered on 04/22/16at 08:32 ; Admin Dose 5 MG; Start 04/21/16 at 21:00 Lisinopril (Zestril) 20 mg BID PO Last administered on 04/22/16at 08:32; Admin Dose 20 MG; Start 04/21/16 at 21:00 Hydralazine HCl (Apresoline) 10 mg Q8H PRN IV ELEVATED BLOOD PRESSURE; Start 04/21/16 at 12:00 LENCHO ESQUIVEL NP Apr 22, 2016 12:12
[2016-04-22] MEDS: COLLAGENASE 30 GM TUBE TOP SCH (15:04)
[2016-04-22] MEDS ORDERED: ACETAMINOPHEN 500 MG TAB PO PRN (17:00)
[2016-04-22] MEDS ORDERED: INSULIN ASPART [NOVOLOG] 3 ML PEN SC SCH (17:55)
--- NOTE | 2016-04-22 19:52 | CONS ---
Date/Time of Note Date/Time of Note DATE: 04/22/16 TIME: 19:51 Assessment/Plan Assessment/Plan Chief Complaint/Hosp Course 55-year-old gentleman with multiple medical problems including insulin dependant DM (not compliant), legal blindness at least for the past 6 months, hypertension, cardiomegaly with a chronic rt first and second toe infection, who initially presented with Left sided chest pain Initial labs also revealed pancytopenia with a Hg 6.7 and platelets in 30's. 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 Problems: Additional Assessment/Plan -Pt is now day 3 of cladribine 0.14mg/kg/day continues IV infusion x 5 days. continue chemotherapy even while patient is on antibiotics. Patients with hairy cell leukemia are very immunocompromised and at high risk for infection. We have to treat the underlying leukemia to help him fight his multiple chronic infections. Will continue chemotherapy -given patient is CD 20 positive will give a dose of Rituxan after cladribine infusion is done. Orders have been written - hemolysis unlikely with high haptoglobin, normal LDH and peripheral smear without schistocytes. -f/u blood cultures as pt appears to have a disseminated infection which may be the cause of this severe anemia. Cultures are thus far negative -allopurinol started as prophylaxis for tumor lysis syndrome -neutropenia related to cladribine, continue to monitor, plan to start neupogen after cladribine complete per Dr. Flannery Problems: Consultation Date/Type/Reason Admit Date/Time Apr 10, 2016 at 16:55 Initial Consult Date 04/11/16 Type of Consultation: Hematology/Oncology Referring Provider: LAUREL ANDERSON 24 HR Interval Summary Free Text/Dictation Doing well, no complaints. Exam/Review of Systems Vital Signs Vitals Vital Signs Date Time Temp Pulse Resp B/P Pulse Ox O2 Delivery O2 Flow Rate FiO2 04/22/16 16:00 98.2 86 18 130/74 95 Room Air Intake and Output 04/21/16 04/21/16 04/22/16 15:00 23:00 07:00 Intake Total 1774.5 ml 2076 ml Output Total 1000 ml 2600 ml Balance 774.5 ml -524 ml Exam Constitutional: alert, oriented Psych: no complaints Head: atraumatic, normocephalic Eyes: other (blind) ENMT: nl external ears & nose, nl lips & teeth Neck: non-tender, supple Respiratory: clear to auscultation, normal air movement Cardiovascular: regular rate and rhythm Gastrointestinal: nl liver, spleen, soft Musculoskeletal: nl extremities to inspection, nl gait and stance Extremities: normal pulses Results Result Diagram: 04/22/16 0815 04/22/16 0815 Results 24 hrs Laboratory Tests Test 04/21/16 21:34 04/22/16 08:03 04/22/16 08:15 04/22/16 11:42 Bedside Glucose 177 314 H 346 H Alanine Aminotransferase (ALT/SGPT) 72 H Albumin 3.4 Albumin/Globulin Ratio 0.65 Alkaline Phosphatase 238 H Anion Gap 15 Anisocytosis 2+ Aspartate Amino Transf (AST/SGOT) 40 Blood Morphology Comment Blood Urea Nitrogen 19 Calcium Level 8.6 Carbon Dioxide Level 27 Chloride Level 99 Creatinine 0.82 Direct Bilirubin 0.00 Globulin 5.20 H Glucose Level 351 H Hematocrit 27.8 L Hemoglobin 9.1 L Indirect Bilirubin 0.5 Lymphocytes # 0.6 L Lymphocytes % 54.0 H Mean Corpuscular Hemoglobin 29.9 Mean Corpuscular Hemoglobin Concent 32.7 Mean Corpuscular Volume 91.2 Mean Platelet Volume 8.6 Monocytes # 0.0 L Monocytes % 2.0 Neutrophils # 0.5 L Neutrophils % 44.0 Nucleated Red Blood Cells % 56.0 H Ovalocytes OCCASIONAL Platelet Count 37 L Platelet Estimate PLT APPEAR DECREASED Polychromasia 1+ Potassium Level 4.7 Red Blood Count 3.05 L Red Cell Distribution Width 23.1 H Sodium Level 136 Target Cells OCCASIONAL Total Bilirubin 0.5 Total Protein 8.6 H White Blood Count 1.2 #L Test 04/22/16 17:13 Bedside Glucose 262 H Medications Medications Current Medications Ondansetron HCl (Zofran Inj) 4 mg Q6H PRN IV NAUSEA AND/OR VOMITING; Start 04/10/16 at 19:00 Nitroglycerin (Nitroglycerin (Sl Tab) 0.4 Mg) 1 tab Q5M PRN SL CHEST PAIN; Start 04/10/16 at 19:00 Acetaminophen (Tylenol Tab) 650 mg Q6H PRN PO PAIN LEVEL 1-3 OR FEVER Last administered on 04/11/16at 23:01; Admin Dose 650 MG; Start 04/10/16 at 19:00 Acetaminophen/ Hydrocodone Bitart ([place] (5/325)) 1 tab Q6H PRN PO PAIN LEVEL 4 -6 Last administered on 04/14/16at 23:25; Admin Dose 1 TAB; Start 04/10/16 at 19: 00 Acetaminophen/ Hydrocodone Bitart ([place] (5/325)) 2 tab Q6H PRN PO PAIN LEVEL 7 -10 Last administered on 04/21/16at 04:30; Admin Dose 2 TAB; Start 04/10/16 at 19:00 Morphine Sulfate (morphine) 2 mg Q4H PRN IV PAIN LEVEL 7-10 Last administered on 04/20/16at 15:23; Admin Dose 2 MG; Start 04/10/16 at 19:00 Magnesium Hydroxide (Milk Of Mag) 30 ml DAILY PRN PO CONSTIPATION Last administered on 04/21/16at 05:00; Admin Dose 30 ML; Start 04/10/16 at 19:00 Bisacodyl (Dulcolax Supp) 10 mg DAILY PRN [place] CONSTIPATION; Start 04/10/16 at 19 :00 Pantoprazole (Protonix Tab) 40 mg DAILY@06 PO Last administered on 04/22/16at 06:27; Admin Dose 40 MG; Start 04/11/16 at 06:00 Miscellaneous Information 1 ea NOTE XX ; Start 04/10/16 at 19:00 Glucose (Glutose) 15 gm Q15M PRN PO DECREASED GLUCOSE; Start 04/10/16 at 19:00 Glucose (Glutose) 22.5 gm Q15M PRN PO DECREASED GLUCOSE; Start 04/10/16 at 19: 00 Dextrose (D50w Syringe) 25 ml Q15M PRN IV DECREASED GLUCOSE; Start 04/10/16 at 19:00 Dextrose (D50w Syringe) 50 ml Q15M PRN IV DECREASED GLUCOSE; Start 04/10/16 at 19:00 Glucagon (Glucagen) 1 mg Q15M PRN IM DECREASED GLUCOSE; Start 04/10/16 at 19:00 Glucose (Glutose) 15 gm Q15M PRN BUCCAL DECREASED GLUCOSE; Start 04/10/16 at 19 :00 Metoprolol Tartrate (Lopressor) 100 mg BID PO Last administered on 04/22/16at 08:31; Admin Dose 100 MG; Start 04/11/16 at 09:00 Docusate Sodium (Colace) 100 mg Q12H PO Last administered on 04/22/16at 06:27; Admin Dose 100 MG; Start 04/11/16 at 19:00 Polyethylene Glycol (Miralax) 17 gm DAILY PO Last administered on 04/22/16at 08 :32; Admin Dose 17 GM; Start 04/11/16 at 13:00 Levofloxacin (Levaquin) 500 mg DAILY@06 PO Last administered on 04/22/16at 06: 27; Admin Dose 500 MG; Start 04/15/16 at 14:00 Collagenase (Santyl) 1 applic DAILY TOP Last administered on 04/22/16at 15:04; Admin Dose 1 APPLIC; Start 04/17/16 at 16:00 Allopurinol (Zyloprim) 300 mg DAILY PO Last administered on 04/22/16at 08:31; Admin Dose 300 MG; Start 04/18/16 at 09:30 IV Flush 10 ml 10 ml PRN PRN IV IV PROTOCOL; Start 04/18/16 at 11:30 Cladribine 17 mg/ Sodium Chloride 500 ml @ 21 mls/hr 13 IV Last administered on 04/21/16at 23:04; Admin Dose 21 MLS/HR; Start 04/18/16 at 13:00; Stop 04/23 at 12:49 Sodium Chloride (NS) 1,000 ml @ 75 mls/hr [id number] IV Last administered on at 06:31; Admin Dose 75 MLS/HR; Start 04/18/16 at 12:30 Dexamethasone (Decadron) 10 mg Q4H PRN IV REACTION; Start 04/18/16 at 13:00 Diphenhydramine HCl 25 mg 25 mg Q4H PRN IV ALLERGIC REACTION; Start 04/18/16 at 13:00 Ondansetron HCl 8 mg/Sodium Chloride 54 ml @ 110 mls/hr Q8H PRN IV NAUSEA; Start 04/18/16 at 13:00 Vancomycin HCl/ Sodium Chloride (Vancocin/NS) 250 ml @ 83.333 mls/ hr Q12H IVPB Last administered on 04/22/16at 16:32; Admin Dose 83.333 MLS/HR; Start at 16:00 Amlodipine Besylate (Norvasc) 5 mg BID PO Last administered on 04/22/16at 08:32 ; Admin Dose 5 MG; Start 04/21/16 at 21:00 Lisinopril (Zestril) 20 mg BID PO Last administered on 04/22/16at 08:32; Admin Dose 20 MG; Start 04/21/16 at 21:00 Hydralazine HCl (Apresoline) 10 mg Q8H PRN IV ELEVATED BLOOD PRESSURE; Start 04/21/16 at 12:00 Insulin Glargine (Lantus) 40 unit QHS SC ; Start 04/22/16 at 21:00 Miscellaneous Information (*Rx Drug Level Order Reminder*) VANCOMYCIN TROUGH AT 0300 ONCE ONCE XX ; Start 04/23/16 at 03:00; Stop 04/23/16 at 03:01 JC ERNST MD Apr 22, 2016 19:52
[2016-04-22] MEDS ORDERED: INSULIN GLARGINE [LANtus] 3 ML PEN SC SCH (21:00)
[2016-04-22] MEDS: [UNRECOGNIZED DRUG - OTHER] IVPB SCH (23:53)
[2016-04-22] MEDS: ONDANSETRON IVPB SCH (23:53)
[2016-04-22] MEDS: DEXAMETHASONE IVPB SCH (23:53)
[2016-04-22] MEDS: DIPHENHYDRAMINE IVPB SCH (23:53)
[2016-04-23] VITALS (10 sets, daily range): BP systolic 123–145; BP diastolic 75–87; PULSE 78–87; RESP 16–18
[2016-04-23] MEDS: SOD CHLORIDE 0.9% IV SCH (00:51)
[2016-04-23] MEDS: CLADRIBINE IV SCH (00:51)
[2016-04-23 03:45] LABS: CONDITION 1; HEMATOCRIT 27.4 % (42.0-52.0); LH ANALYZER COMMENTS 1; MEAN CORPUSCULAR HGB CONC 32.8 g/dl (32.0-37.0); MEAN CORPUSCULAR VOLUME 91.3 fl (82.0-101.0); MEAN PLATELET VOLUME 8.6 fl (7.4-10.4); PLATELET COUNT 38 10^3/UL (140-440); RED BLOOD COUNT 2.99 10^6/ul (4.70-6.10); RED CELL DISTRIBUTION WIDTH 23.5 % (11.5-14.5); SUSPECT 1; UNCORRECTED WBC 0.9 10^3/ul (4.8-10.8); WHITE BLOOD COUNT 0.6 10^3/ul (4.8-10.8)
[2016-04-23 03:49] LABS: ALBUMIN 3.4 g/dl (3.3-4.9); POTASSIUM 4.3 mmol/L (3.5-5.1)
[2016-04-23 03:51] LABS: CREATININE 0.94 mg/dl (0.61-1.24)
[2016-04-23 03:52] LABS: ALBUMIN/GLOBULIN RATIO 0.69; BILIRUBIN,INDIRECT 0.4 mg/dl (0-1.1); BILIRUBIN,TOTAL 0.4 mg/dl (0.2-1.3); CALCIUM 8.8 mg/dl (8.4-10.2); TOTAL PROTEIN 8.3 g/dl (6.1-8.1)
[2016-04-23] MEDS: VANCOMYCIN 1.5 GM in SOD CHLORIDE 0.9% 250 ML IVPB SCH ×2 (04:16→16:24)
[2016-04-23] MEDS: PANTOPRAZOLE (EC) 40 MG TAB PO SCH (06:45)
[2016-04-23] MEDS: LEVOFLOXACIN 500 MG TAB PO SCH (06:45)
[2016-04-23] MEDS: DOCUSATE SODIUM 100 MG CAP PO SCH ×2 (07:00→17:48)
[2016-04-23] MEDS: POLYETHYLENE GLYCOL 17 GM PACKET PO SCH (08:47)
[2016-04-23] MEDS: INSULIN ASPART [NOVOLOG] 3 ML PEN SC SCH ×7 (08:48→21:11)
[2016-04-23] MEDS: AMLODIPINE 5 MG TAB PO SCH ×2 (08:49→21:09)
[2016-04-23] MEDS: LISINOPRIL 20 MG TAB PO SCH ×2 (08:49→21:08)
[2016-04-23] MEDS: ALLOPURINOL 300 MG TAB PO SCH (08:49)
[2016-04-23] MEDS: COLLAGENASE 30 GM TUBE TOP SCH (08:50)
[2016-04-23] MEDS: METOPROLOL 100 MG TAB PO SCH ×2 (08:54→21:09)
[2016-04-23 12:04] LABS: LYMPHOCYTES # 0.3 10^3/ul (0.8-2.9); NEUTROPHIL # 0.2 10^3/ul (1.6-7.5)
[2016-04-23 12:05] LABS: ANISOCYTOSIS 2+; PLATELET ESTIMATE PLT APPEAR DECREASED
[2016-04-23] MEDS: SOD CHLORIDE 0.9% 1,000 ML IV SCH (12:30)
--- NOTE | 2016-04-23 17:06 | CONS ---
Date/Time of Note Date/Time of Note DATE: 04/23/16 TIME: 17:04 Assessment/Plan Assessment/Plan Chief Complaint/Hosp Course ID PROGRESS NOTE 24H INTERVAL SUMMARY * No new issues, no fevers. sitting up in bed, VSS * ANTIMICROBIALS: 1. Vancomycin. 2. Levaquin PHYSICAL EXAMINATION: GENERAL: Obese M, resting, awake, alert, VSS, NAD HEENT: Unremarkable except low vision NECK: Supple. Trachea midline. LUNGS: Chest rise symmetrical, without dyspnea on observation ABDOMEN: Soft EXTREMITIES: With right foot edema ID ASSESSMENT: 1. 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 Pancytopenia due to #1 3. Right diabetic foot ulcer with questionable toe osteomyelitis=> podiatry on case. * MRI showed evidence of osteomyelitis at the second middle and distal phalanges. 4. s/p Systemic inflammatory response syndrome with fever on admission, elevated ESR, significant thrombocytopenia and anemia. * JOSE J revealed no vegetations 5. Diabetes. 6. Hypertension. 7. Legally blind. (-)MRSA Nares Screen CURRENT ABX: Vanco IV + Levaquin PO s/p Zosyn ID RECOMMENDATIONS/PLAN: Clinically stable = continue current ABX f/u podiatry rec-s. Chemo per oncology rec-s . . Problems: Consultation Date/Type/Reason Admit Date/Time Apr 10, 2016 at 16:55 Initial Consult Date 04/11/16 Type of Consultation: ID Referring Provider: LAUREL ANDERSON Exam/Review of Systems Vital Signs Vitals Vital Signs Date Time Temp Pulse Resp B/P Pulse Ox O2 Delivery O2 Flow Rate FiO2 04/23/16 08:00 98.1 81 18 143/85 98 Room Air Intake and Output 04/22/16 04/22/16 04/23/16 15:00 23:00 07:00 Intake Total 250 ml 2852 ml 1852 ml Output Total 2000 ml 2450 ml Balance 250 ml 852 ml -598 ml Results Result Diagram: 04/23/1631404/23/16 031 Results 24 hrs Laboratory Tests Test 04/22/16 17:13 04/22/16 20:05 04/23/16 03:15 04/23/16 03:53 Bedside Glucose 262 H 286 H 324 H Alanine Aminotransferase (ALT/SGPT) 72 H Albumin 3.4 Albumin/Globulin Ratio 0.69 Alkaline Phosphatase 219 H Anion Gap 13 Anisocytosis 2+ Aspartate Amino Transf (AST/SGOT) 30 Band Neutrophils % 2.0 Blood Morphology Comment Blood Urea Nitrogen 20 Calcium Level 8.8 Carbon Dioxide Level 28 Chloride Level 101 Creatinine 0.94 Differential Comment Direct Bilirubin 0.00 Globulin 4.90 H Glucose Level 336 H Hematocrit 27.4 L Hemoglobin 9.0 L Indirect Bilirubin 0.4 Lymphocytes # 0.3 L Lymphocytes % 57.0 H Mean Corpuscular Hemoglobin 30.0 Mean Corpuscular Hemoglobin Concent 32.8 Mean Corpuscular Volume 91.3 Mean Platelet Volume 8.6 Monocytes # 0.0 L Monocytes % 2.0 Neutrophils # 0.2 L Neutrophils % 39.0 Nucleated Red Blood Cells % 27.0 H Platelet Count 38 L Platelet Estimate PLT APPEAR DECREASED Potassium Level 4.3 Red Blood Count 2.99 L Red Cell Distribution Width 23.5 H Sodium Level 138 Total Bilirubin 0.4 Total Protein 8.3 H Vancomycin Level Trough 15.8 White Blood Count 0.6 #L Test 04/23/16 08:43 04/23/16 12:03 04/23/16 16:42 Bedside Glucose 353 H 313 H 231 H Medications Medications Current Medications Ondansetron HCl (Zofran Inj) 4 mg Q6H PRN IV NAUSEA AND/OR VOMITING; Start 04/10/16 at 19:00 Nitroglycerin (Nitroglycerin (Sl Tab) 0.4 Mg) 1 tab Q5M PRN SL CHEST PAIN; Start 04/10/16 at 19:00 Acetaminophen (Tylenol Tab) 650 mg Q6H PRN PO PAIN LEVEL 1-3 OR FEVER Last administered on 04/11/16at 23:01; Admin Dose 650 MG; Start 04/10/16 at 19:00 Acetaminophen/ Hydrocodone Bitart ([place] (5/325)) 1 tab Q6H PRN PO PAIN LEVEL 4 -6 Last administered on 04/14/16at 23:25; Admin Dose 1 TAB; Start 04/10/16 at 19: 00 Acetaminophen/ Hydrocodone Bitart ([place] (5/325)) 2 tab Q6H PRN PO PAIN LEVEL 7 -10 Last administered on 04/21/16 04:30; Admin Dose 2 TAB; Start 04/10/16 at 19:00 Morphine Sulfate (morphine) 2 mg Q4H PRN IV PAIN LEVEL 7-10 Last administered on 04/20/16at 15:23; Admin Dose 2 MG; Start 04/10/16 at 19:00 Magnesium Hydroxide (Milk Of Mag) 30 ml DAILY PRN PO CONSTIPATION Last administered on 04/21/16at 05:00; Admin Dose 30 ML; Start 04/10/16 at 19:00 Bisacodyl (Dulcolax Supp) 10 mg DAILY PRN [place] CONSTIPATION; Start 04/10/16 at 19 :00 Pantoprazole (Protonix Tab) 40 mg DAILY@06 PO Last administered on 04/23/16at 06:45; Admin Dose 40 MG; Start 04/11/16 at 06:00 Miscellaneous Information 1 ea NOTE XX ; Start 04/10/16 at 19:00 Glucose (Glutose) 15 gm Q15M PRN PO DECREASED GLUCOSE; Start 04/10/16 at 19:00 Glucose (Glutose) 22.5 gm Q15M PRN PO DECREASED GLUCOSE; Start 04/10/16 at 19: 00 Dextrose (D50w Syringe) 25 ml Q15M PRN IV DECREASED GLUCOSE; Start 04/10/16 at 19:00 Dextrose (D50w Syringe) 50 ml Q15M PRN IV DECREASED GLUCOSE; Start 04/10/16 at 19:00 Glucagon (Glucagen) 1 mg Q15M PRN IM DECREASED GLUCOSE; Start 04/10/16 at 19:00 Glucose (Glutose) 15 gm Q15M PRN BUCCAL DECREASED GLUCOSE; Start 04/10/16 at 19 :00 Metoprolol Tartrate (Lopressor) 100 mg BID PO Last administered on 04/23/16at 08:54; Admin Dose 100 MG; Start 04/11/16 at 09:00 Docusate Sodium (Colace) 100 mg Q12H PO Last administered on 04/22/16at 06:27; Admin Dose 100 MG; Start 04/11/16 at 19:00 Polyethylene Glycol (Miralax) 17 gm DAILY PO Last administered on 04/23/16at 08 :47; Admin Dose 17 GM; Start 04/11/16 at 13:00 Levofloxacin (Levaquin) 500 mg DAILY@06 PO Last administered on 04/23/16at 06: 45; Admin Dose 500 MG; Start 04/15/16 at 14:00 Collagenase (Santyl) 1 applic DAILY TOP Last administered on 04/23/16 08:50; Admin Dose 1 APPLIC; Start 04/17/16 at 16:00 Allopurinol (Zyloprim) 300 mg DAILY PO Last administered on 04/23/16 08:49; Admin Dose 300 MG; Start 04/18/16 at 09:30 IV Flush 10 ml 10 ml PRN PRN IV IV PROTOCOL; Start 04/18/16 at 11:30 Sodium Chloride (NS) 1,000 ml @ 75 mls/hr [id number] IV Last administered on at 23:56; Admin Dose 75 MLS/HR; Start 04/18/16 at 12:30 Dexamethasone (Decadron) 10 mg Q4H PRN IV REACTION; Start 04/18/16 at 13:00 Diphenhydramine HCl 25 mg 25 mg Q4H PRN IV ALLERGIC REACTION; Start 04/18/16 at 13:00 Ondansetron HCl 8 mg/Sodium Chloride 54 ml @ 110 mls/hr Q8H PRN IV NAUSEA; Start 04/18/16 at 13:00 Vancomycin HCl/ Sodium Chloride (Vancocin/NS) 250 ml @ 83.333 mls/ hr Q12H IVPB Last administered on 04/23/16 16:24; Admin Dose 83.333 MLS/HR; Start at 16:00 Amlodipine Besylate (Norvasc) 5 mg BID PO Last administered on 04/23/16 08:49 ; Admin Dose 5 MG; Start 04/21/16 at 21:00 Lisinopril (Zestril) 20 mg BID PO Last administered on 04/23/16at 08:49; Admin Dose 20 MG; Start 04/21/16 at 21:00 Hydralazine HCl (Apresoline) 10 mg Q8H PRN IV ELEVATED BLOOD PRESSURE; Start 04/21/16 at 12:00 Insulin Glargine (Lantus) 40 unit QHS SC Last administered on 04/22/16at 20:36 ; Admin Dose 40 UNIT; Start 04/22/16 at 21:00 LENCHO ESQUIVEL NP Apr 23, 2016 17:06
--- NOTE | 2016-04-23 21:09 | PN ---
Date/Time of Note Date/Time of Note DATE: 04/23/16 TIME: 21:04 Assessment/Plan VTE Prophylaxis VTE Prophylaxis Intervention: SCD's Lines/Catheters IV Catheter Type (from [facility]): PICC Line Central line still needed: Yes (chemotherapy) Urinary Cath still in place: No Assessment/Plan Assessment/Plan [facility] 1. Hospital day 14 for this 55-year-old man with newly diagnosed hairy cell leukemia, now under treatment with cladribine per Dr. Thelma Flannery. Acute on chronic anemia and thrombocytopenia are both stable, with platelets 38k/ul and Hct 27%. But ANC down to 200/ul, with WBC 0.6k/ul. 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 * Continue respiratory precautions * Send BK/COOPER virus assay as a send-out with AM labs; necessary rule-out for chronic infection, prior to rituximab * Anticipate treatment with rituiximab next; orders written. 2. Acute infection of his right 1st and 2nd toes. Also with a maculopapular rash on admission. He has a history of methicillin-resistant Staph aureus skin and soft-tissue infection years ago requiring extensive debridement of the left upper extremity. MRI of the foot shows osteomyelitis. JOSE J negative. * Continue Vancomycin and Levaquin per ID * Blood cultures x4 without growth so far. * Wound care per Dr Thomas (podiatry) 3. Diabetic retinopathy. A1c 7.2%. Sugars today are slightly better, but still in the 200s. I wonder if he may have a CMV retinopathy, in light of his immunosuppression. * Increase Lantus to 50u at bedtime, with 12u Novolog preprandially. He expressed concern about so many shots, but I persuaded him to stick with it. * Continue to hold the glyburide. * Continue Tradjenta. * Would suggest retinal evaluation as soon as possible to evaluate for CMV retinitis. Patient could be treated empirically with valganciclovir 900mg PO BID x 21 days, if this is not possible. * Fall precautions. 4. Cardiomegaly, EF 50%. No further episodes of SVT * Continue Lopressor * Electrolytes stable. * S/p negative JOSE J 5. Hypertension. * Continue beta blockers and Norvasc * Tolerating higher dose of Lisinopril (20 mg po bid) * Hydralazine prn for SBP > 160. 6. Constipation. * Continue Miralax and colace 7. Nodular rash on the both arms, suggestive of Kaposi's sarcoma. 8. Prophylaxis. Proton pump inhibitors for GI prophylaxis and SCDs for DVT prophylaxis. 9. DISPOSITION: On chemo. F/u wound care and follow up further ID and Podiatry recs. He said today he wants to go home with home nursing and Meals on Wheels. We also discussed use of melatonin at 9pm every night, to help with day-night sleep cycle synchronization. Bárbara Perez MD PhD [phone] Subjective 24 Hr Interval Summary Free Text/Dictation Feeling much better overall, with no pain now in his eyes and generally much less pain. Says he feels like a new man. Eating well, with no GI symptoms. Breathing comfortably, with no cough. Exam/Review of Systems Vital Signs Vitals Vital Signs Date Time Temp Pulse Resp B/P Pulse Ox O2 Delivery O2 Flow Rate FiO2 04/23/16 18:00 98.1 80 16 138/80 98 Room Air Intake and Output 04/22/16 04/22/16 04/23/16 15:00 23:00 07:00 Intake Total 250 ml 2852 ml 1852 ml Output Total 2000 ml 2450 ml Balance 250 ml 852 ml -598 ml Exam Constitutional: Friendly, comfortable, visually impaired Respiratory: Clear bilaterally, good air movement Cardiovascular: Symmetric pulses, regular rate and rhythm Gastrointestinal: non-tender, soft, no hepatosplenomegaly Musculoskeletal: Right 1st and 2nd toes wrapped for ulcerations; bandage clean and dry. Extremities: normal pulses; no edema, clubbing or cyanosis 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: AN/SSN 2 4 OPERATOR II-XII intact, nl mental status, nl speech, nl strength, blind. Skin: Nodular lesions down both arms suggestive of Kaposi's sarcoma; non- excoriated. Results Result Diagram: 04/23/165 04/23/16314 Results 24 hrs Laboratory Tests Test 04/23/16 03:15 04/23/16 03:53 04/23/16 08:43 04/23/16 12:03 Alanine Aminotransferase (ALT/SGPT) 72 H Albumin 3.4 Albumin/Globulin Ratio 0.69 Alkaline Phosphatase 219 H Anion Gap 13 Anisocytosis 2+ Aspartate Amino Transf (AST/SGOT) 30 Band Neutrophils % 2.0 Blood Morphology Comment Blood Urea Nitrogen 20 Calcium Level 8.8 Carbon Dioxide Level 28 Chloride Level 101 Creatinine 0.94 Differential Comment Direct Bilirubin 0.00 Globulin 4.90 H Glucose Level 336 H Hematocrit 27.4 L Hemoglobin 9.0 L Indirect Bilirubin 0.4 Lymphocytes # 0.3 L Lymphocytes % 57.0 H Mean Corpuscular Hemoglobin 30.0 Mean Corpuscular Hemoglobin Concent 32.8 Mean Corpuscular Volume 91.3 Mean Platelet Volume 8.6 Monocytes # 0.0 L Monocytes % 2.0 Neutrophils # 0.2 L Neutrophils % 39.0 Nucleated Red Blood Cells % 27.0 H Platelet Count 38 L Platelet Estimate PLT APPEAR DECREASED Potassium Level 4.3 Red Blood Count 2.99 L Red Cell Distribution Width 23.5 H Sodium Level 138 Total Bilirubin 0.4 Total Protein 8.3 H Vancomycin Level Trough 15.8 White Blood Count 0.6 #L Bedside Glucose 324 H 353 H 313 H Test 04/23/16 16:42 04/23/16 20:08 Bedside Glucose 231 H 252 H Medications Medications Current Medications Ondansetron HCl (Zofran Inj) 4 mg Q6H PRN IV NAUSEA AND/OR VOMITING; Start 04/10/16 at 19:00 Nitroglycerin (Nitroglycerin (Sl Tab) 0.4 Mg) 1 tab Q5M PRN SL CHEST PAIN; Start 04/10/16 at 19:00 Acetaminophen (Tylenol Tab) 650 mg Q6H PRN PO PAIN LEVEL 1-3 OR FEVER Last administered on 04/11/16at 23:01; Admin Dose 650 MG; Start 04/10/16 at 19:00 Acetaminophen/ Hydrocodone Bitart ([place] (5/325)) 1 tab Q6H PRN PO PAIN LEVEL 4 -6 Last administered on 04/14/16at 23:25; Admin Dose 1 TAB; Start 04/10/16 at 19: 00 Acetaminophen/ Hydrocodone Bitart ([place] (5/325)) 2 tab Q6H PRN PO PAIN LEVEL 7 -10 Last administered on 04/21/16 04:30; Admin Dose 2 TAB; Start 04/10/16 at 19:00 Morphine Sulfate (morphine) 2 mg Q4H PRN IV PAIN LEVEL 7-10 Last administered on 04/20/16at 15:23; Admin Dose 2 MG; Start 04/10/16 at 19:00 Magnesium Hydroxide (Milk Of Mag) 30 ml DAILY PRN PO CONSTIPATION Last administered on 04/21/16at 05:00; Admin Dose 30 ML; Start 04/10/16 at 19:00 Bisacodyl (Dulcolax Supp) 10 mg DAILY PRN [place] CONSTIPATION; Start 04/10/16 at 19 :00 Pantoprazole (Protonix Tab) 40 mg DAILY@06 PO Last administered on 04/23/16at 06:45; Admin Dose 40 MG; Start 04/11/16 at 06:00 Miscellaneous Information 1 ea NOTE XX ; Start 04/10/16 at 19:00 Glucose (Glutose) 15 gm Q15M PRN PO DECREASED GLUCOSE; Start 04/10/16 at 19:00 Glucose (Glutose) 22.5 gm Q15M PRN PO DECREASED GLUCOSE; Start 04/10/16 at 19: 00 Dextrose (D50w Syringe) 25 ml Q15M PRN IV DECREASED GLUCOSE; Start 04/10/16 at 19:00 Dextrose (D50w Syringe) 50 ml Q15M PRN IV DECREASED GLUCOSE; Start 04/10/16 at 19:00 Glucagon (Glucagen) 1 mg Q15M PRN IM DECREASED GLUCOSE; Start 04/10/16 at 19:00 Glucose (Glutose) 15 gm Q15M PRN BUCCAL DECREASED GLUCOSE; Start 04/10/16 at 19 :00 Metoprolol Tartrate (Lopressor) 100 mg BID PO Last administered on 04/23/16at 08:54; Admin Dose 100 MG; Start 04/11/16 at 09:00 Docusate Sodium (Colace) 100 mg Q12H PO Last administered on 04/23/16at 17:48; Admin Dose 100 MG; Start 04/11/16 at 19:00 Polyethylene Glycol (Miralax) 17 gm DAILY PO Last administered on 04/23/16at 08 :47; Admin Dose 17 GM; Start 04/11/16 at 13:00 Levofloxacin (Levaquin) 500 mg DAILY@06 PO Last administered on 04/23/16at 06: 45; Admin Dose 500 MG; Start 04/15/16 at 14:00 Collagenase (Santyl) 1 applic DAILY TOP Last administered on 04/23/16 08:50; Admin Dose 1 APPLIC; Start 04/17/16 at 16:00 Allopurinol (Zyloprim) 300 mg DAILY PO Last administered on 04/23/16 08:49; Admin Dose 300 MG; Start 04/18/16 at 09:30 IV Flush 10 ml 10 ml PRN PRN IV IV PROTOCOL; Start 04/18/16 at 11:30 Sodium Chloride (NS) 1,000 ml @ 75 mls/hr [id number] IV Last administered on at 23:56; Admin Dose 75 MLS/HR; Start 04/18/16 at 12:30 Dexamethasone (Decadron) 10 mg Q4H PRN IV REACTION; Start 04/18/16 at 13:00 Diphenhydramine HCl 25 mg 25 mg Q4H PRN IV ALLERGIC REACTION; Start 04/18/16 at 13:00 Ondansetron HCl 8 mg/Sodium Chloride 54 ml @ 110 mls/hr Q8H PRN IV NAUSEA; Start 04/18/16 at 13:00 Vancomycin HCl/ Sodium Chloride (Vancocin/NS) 250 ml @ 83.333 mls/ hr Q12H IVPB Last administered on 04/23/16 16:24; Admin Dose 83.333 MLS/HR; Start at 16:00 Amlodipine Besylate (Norvasc) 5 mg BID PO Last administered on 04/23/16 08:49 ; Admin Dose 5 MG; Start 04/21/16 at 21:00 Lisinopril (Zestril) 20 mg BID PO Last administered on 04/23/16 08:49; Admin Dose 20 MG; Start 04/21/16 at 21:00 Hydralazine HCl (Apresoline) 10 mg Q8H PRN IV ELEVATED BLOOD PRESSURE; Start 04/21/16 at 12:00 Insulin Glargine (Lantus) 40 unit QHS SC Last administered on 04/22/16at 20:36 ; Admin Dose 40 UNIT; Start 04/22/16 at 21:00 MALLIKA PEREZ M.D. Apr 23, 2016 21:09
[2016-04-23] MEDS: INSULIN GLARGINE [LANtus] 3 ML PEN SC SCH (21:32)
[2016-04-24] VITALS (22 sets, daily range): BP systolic 97–184; BP diastolic 55–112; PULSE 80–122; RESP 16–20
[2016-04-24] MEDS: VANCOMYCIN 1.5 GM in SOD CHLORIDE 0.9% 250 ML IVPB SCH (03:16)
[2016-04-24] MEDS: SOD CHLORIDE 0.9% 1,000 ML IV SCH ×2 (03:16→15:26)
[2016-04-24 06:13] LABS: HEMATOCRIT 25.4 % (42.0-52.0); HEMOGLOBIN 8.5 g/dl (14.0-18.0); MEAN CORPUSCULAR HEMOGLOBIN 30.5 pg (29.0-33.0); MEAN CORPUSCULAR HGB CONC 33.5 g/dl (32.0-37.0); MEAN CORPUSCULAR VOLUME 91.1 fl (82.0-101.0); MEAN PLATELET VOLUME 7.8 fl (7.4-10.4); RED BLOOD COUNT 2.79 10^6/ul (4.70-6.10); RED CELL DISTRIBUTION WIDTH 22.6 % (11.5-14.5); UNCORRECTED WBC 0.7 10^3/ul (4.8-10.8); WHITE BLOOD COUNT 0.7 10^3/ul (4.8-10.8)
[2016-04-24 06:28] LABS: ALBUMIN 3.2 g/dl (3.3-4.9)
[2016-04-24 06:29] LABS: POTASSIUM 3.3 mmol/L (3.5-5.1)
[2016-04-24 06:31] LABS: ALBUMIN/GLOBULIN RATIO 0.69; BILIRUBIN,INDIRECT 0.5 mg/dl (0-1.1); BILIRUBIN,TOTAL 0.5 mg/dl (0.2-1.3); CREATININE 1.08 mg/dl (0.61-1.24); TOTAL PROTEIN 7.8 g/dl (6.1-8.1)
[2016-04-24 06:32] LABS: CALCIUM 8.3 mg/dl (8.4-10.2)
[2016-04-24] MEDS: LEVOFLOXACIN 500 MG TAB PO SCH (06:33)
[2016-04-24] MEDS: PANTOPRAZOLE (EC) 40 MG TAB PO SCH (06:33)
[2016-04-24 06:40] LABS: CONDITION 1; LH ANALYZER COMMENTS 1; PLATELET COUNT 30 10^3/UL (140-440); SUSPECT 1
[2016-04-24] MEDS: DOCUSATE SODIUM 100 MG CAP PO SCH ×2 (07:00→19:00)
[2016-04-24] MEDS: AMLODIPINE 5 MG TAB PO SCH ×2 (08:22→20:50)
[2016-04-24] MEDS: ALLOPURINOL 300 MG TAB PO SCH (08:22)
[2016-04-24] MEDS: LISINOPRIL 20 MG TAB PO SCH ×2 (08:22→20:51)
[2016-04-24] MEDS: METOPROLOL 100 MG TAB PO SCH ×2 (08:23→20:51)
[2016-04-24] MEDS: POLYETHYLENE GLYCOL 17 GM PACKET PO SCH (08:23)
[2016-04-24] MEDS: INSULIN ASPART [NOVOLOG] 3 ML PEN SC SCH ×6 (08:24→17:55)
[2016-04-24] MEDS: COLLAGENASE 30 GM TUBE TOP SCH (08:26)
[2016-04-24 10:11] LABS: LYMPHOCYTES # 0.4 10^3/ul (0.8-2.9); NEUTROPHIL # 0.3 10^3/ul (1.6-7.5)
[2016-04-24] MEDS ORDERED: POTASSIUM CHLORIDE (SR) 20 MEQ TAB PO STA (11:45)
--- NOTE | 2016-04-24 11:53 | PN ---
Date/Time of Note Date/Time of Note DATE: 04/24/16 TIME: 11:47 Assessment/Plan VTE Prophylaxis VTE Prophylaxis Intervention: SCD's Lines/Catheters IV Catheter Type (from Nrs): PICC Line Central line still needed: Yes (for CHemo/IV access ) Urinary Cath still in place: No Assessment/Plan Assessment/Plan 55-year-old male with: 1. Hairy cell Leukemia. patient admitted with anemia, acute on chronic, pancytopenia, primarily thrombocytopenic. HIV negative. Now Neutropenic. Appreciate Hematology's assistance. Finishing up Chemo regimen today Hopefully count recovery soon Dr Flannery following. 2. Fever with likely acute infection of his right 1st and 2nd toe. ESR elevated. Afebrile now since admission. The patient also had a rash, maculopapular. He does have a history of methicillin-resistant Staphylococcus aureus skin and soft-tissue infection years ago requiring extensive debridement of the left upper extremity. MRI foot with osteomyelitis and JOSE J negative Continue Vancomycin and Levaquin per ID Blood cultures NGTD and wound cultures pending. Wound care and Dr Thomas following patient. 3. Diabetes mellitus. A1c back at 7.2 ...Continue current insulin regimen, keeping off glyburide. On Tradjenta. Increased Lantus to 50 and premeal insulin to 12 Appreciate family living educator recommendations. Patient really needs to be compliant with ADA diet. BG currently up due to non compliance even inpatient stills get food from family members visiting ... 4. Cardiomegaly, EF 50%. No further episodes of NSVT since yesterday. Continue Lopressor/Bblock Electrolytes stable again today. S/p negative JOSE J 5. Hypertension. Continue beta blockers, Norvasc and Lisinopril. Also on hydralazine prn. 6. Constipation, relieved: continue Miralax and colace scheduled and add MOM along with dulcolax prn. 7. 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 patient was started on 3 weeks course of Valacyclovir ...WIll need Ophthalmology eval outpatient either way if not done prior Patient blind Prophylaxis. Proton pump inhibitors for GI prophylaxis and SCDs for DVT prophylaxis. DISPOSITION: On chemo. F/u wound care and follow up further ID and Podiatry recs. Will likely require SNF discharge. Subjective 24 Hr Interval Summary Free Text/Dictation Patient doing OK Pancytopenic with Neutropenia so on neutropenic precautions awaiting count recovery Exam/Review of Systems Vital Signs Vitals Vital Signs Date Time Temp Pulse Resp B/P Pulse Ox O2 Delivery O2 Flow Rate FiO2 04/24/16 08:00 97.9 82 18 131/82 98 Room Air Intake and Output 04/23/16 04/23/16 04/24/16 15:00 23:00 07:00 Intake Total 1552 ml 850 ml Output Total 2000 ml 1450 ml Balance -448 ml -600 ml Exam Constitutional: alert, oriented, other (blind ), well developed Respiratory: clear to auscultation, normal air movement Cardiovascular: nl pulses, regular rate and rhythm Gastrointestinal: non-tender, soft Musculoskeletal: other (right 1st and 2nd toe osteomyelitis/non healing ulcer ) Extremities: other (no edema, clubbing or cyanosis ) 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: SUPERVISOR FELTING II-XII intact, nl mental status, nl speech, nl strength, other (blind ) Skin: rash or lesions (improved since admission ) Results Result Diagram: 04/24/16 0430 04/24/16 0430 Results 24 hrs Laboratory Tests Test 04/23/16 12:03 04/23/16 16:42 04/23/16 20:08 04/24/16 04:30 Bedside Glucose 313 H 231 H 252 H Alanine Aminotransferase (ALT/SGPT) 62 Albumin 3.2 L Albumin/Globulin Ratio 0.69 Alkaline Phosphatase 177 H Anion Gap 14 Aspartate Amino Transf (AST/SGOT) 24 Band Neutrophils % 4.0 Basophils # Basophils % Blood Morphology Comment Blood Urea Nitrogen 17 Calcium Level 8.3 L Carbon Dioxide Level 27 Chloride Level 100 Creatinine 1.08 Differential Comment MANUAL DIFF Direct Bilirubin 0.00 Eosinophils # Eosinophils % Globulin 4.60 H Glucose Level 162 # Hematocrit 25.4 L Hemoglobin 8.5 L Indirect Bilirubin 0.5 Lymphocytes # 0.4 L Lymphocytes % 55.0 H Mean Corpuscular Hemoglobin 30.5 Mean Corpuscular Hemoglobin Concent 33.5 Mean Corpuscular Volume 91.1 Mean Platelet Volume 7.8 Monocytes # Monocytes % Neutrophils # 0.3 L Neutrophils % 41.0 Platelet Count 30 #L Potassium Level 3.3 L Red Blood Count 2.79 L Red Cell Distribution Width 22.6 H Sodium Level 138 Total Bilirubin 0.5 Total Protein 7.8 White Blood Count 0.7 L Test 04/24/16 08:20 Bedside Glucose 158 Medications Medications Current Medications Ondansetron HCl (Zofran Inj) 4 mg Q6H PRN IV NAUSEA AND/OR VOMITING; Start 04/10/16 at 19:00 Nitroglycerin (Nitroglycerin (Sl Tab) 0.4 Mg) 1 tab Q5M PRN SL CHEST PAIN; Start 04/10/16 at 19:00 Acetaminophen (Tylenol Tab) 650 mg Q6H PRN PO PAIN LEVEL 1-3 OR FEVER Last administered on 04/11/16at 23:01; Admin Dose 650 MG; Start 04/10/16 at 19:00 Acetaminophen/ Hydrocodone Bitart ([place] (5/325)) 1 tab Q6H PRN PO PAIN LEVEL 4 -6 Last administered on 04/14/16at 23:25; Admin Dose 1 TAB; Start 04/10/16 at 19: 00 Acetaminophen/ Hydrocodone Bitart ([place] (5/325)) 2 tab Q6H PRN PO PAIN LEVEL 7 -10 Last administered on 04/21/16at 04:30; Admin Dose 2 TAB; Start 04/10/16 at 19:00 Morphine Sulfate (morphine) 2 mg Q4H PRN IV PAIN LEVEL 7-10 Last administered on 04/20/16at 15:23; Admin Dose 2 MG; Start 04/10/16 at 19:00 Magnesium Hydroxide (Milk Of Mag) 30 ml DAILY PRN PO CONSTIPATION Last administered on 04/21/16at 05:00; Admin Dose 30 ML; Start 04/10/16 at 19:00 Bisacodyl (Dulcolax Supp) 10 mg DAILY PRN [place] CONSTIPATION; Start 04/10/16 at 19 :00 Pantoprazole (Protonix Tab) 40 mg DAILY@06 PO Last administered on 04/24/16at 06:33; Admin Dose 40 MG; Start 04/11/16 at 06:00 Miscellaneous Information 1 ea NOTE XX ; Start 04/10/16 at 19:00 Glucose (Glutose) 15 gm Q15M PRN PO DECREASED GLUCOSE; Start 04/10/16 at 19:00 Glucose (Glutose) 22.5 gm Q15M PRN PO DECREASED GLUCOSE; Start 04/10/16 at 19: 00 Dextrose (D50w Syringe) 25 ml Q15M PRN IV DECREASED GLUCOSE; Start 04/10/16 at 19:00 Dextrose (D50w Syringe) 50 ml Q15M PRN IV DECREASED GLUCOSE; Start 04/10/16 at 19:00 Glucagon (Glucagen) 1 mg Q15M PRN IM DECREASED GLUCOSE; Start 04/10/16 at 19:00 Glucose (Glutose) 15 gm Q15M PRN BUCCAL DECREASED GLUCOSE; Start 04/10/16 at 19 :00 Metoprolol Tartrate (Lopressor) 100 mg BID PO Last administered on 04/24/16at 08:23; Admin Dose 100 MG; Start 04/11/16 at 09:00 Docusate Sodium (Colace) 100 mg Q12H PO Last administered on 04/23/16at 17:48; Admin Dose 100 MG; Start 04/11/16 at 19:00 Polyethylene Glycol (Miralax) 17 gm DAILY PO Last administered on 04/24/16at 08 :23; Admin Dose 17 GM; Start 04/11/16 at 13:00 Levofloxacin (Levaquin) 500 mg DAILY@06 PO Last administered on 04/24/16at 06: 33; Admin Dose 500 MG; Start 04/15/16 at 14:00 Collagenase (Santyl) 1 applic DAILY TOP Last administered on 04/24/16at 08:26; Admin Dose 1 APPLIC; Start 04/17/16 at 16:00 Allopurinol (Zyloprim) 300 mg DAILY PO Last administered on 04/24/16at 08:22; Admin Dose 300 MG; Start 04/18/16 at 09:30 IV Flush 10 ml 10 ml PRN PRN IV IV PROTOCOL; Start 04/18/16 at 11:30 Sodium Chloride (NS) 1,000 ml @ 75 mls/hr [id number] IV Last administered on at 03:16; Admin Dose 75 MLS/HR; Start 04/18/16 at 12:30 Dexamethasone (Decadron) 10 mg Q4H PRN IV REACTION; Start 04/18/16 at 13:00 Diphenhydramine HCl 25 mg 25 mg Q4H PRN IV ALLERGIC REACTION; Start 04/18/16 at 13:00 Ondansetron HCl/ Sodium Chloride (Zofran Inj/NS) 54 ml @ 110 mls/hr Q8H PRN IV NAUSEA; Start 04/18/16 at 13:00 Amlodipine Besylate (Norvasc) 5 mg BID PO Last administered on 04/24/16at 08:22 ; Admin Dose 5 MG; Start 04/21/16 at 21:00 Lisinopril (Zestril) 20 mg BID PO Last administered on 04/24/16at 08:22; Admin Dose 20 MG; Start 04/21/16 at 21:00 Hydralazine HCl (Apresoline) 10 mg Q8H PRN IV ELEVATED BLOOD PRESSURE; Start 04/21/16 at 12:00 Insulin Glargine 50 unit 50 unit QHS SC Last administered on 04/23/16at 21:32; Admin Dose 50 UNIT; Start 04/23/16 at 21:00 Vancomycin HCl/ Sodium Chloride (Vancocin/NS) 250 ml @ 83.333 mls/ hr Q12H IVPB ; Start 04/24/16 at 16:00 LAUREL ANDERSON Apr 24, 2016 11:53
--- NOTE | 2016-04-24 13:14 | CONS ---
Date/Time of Note Date/Time of Note DATE: 04/24/16 TIME: 13:13 Consult Date/Type/Reason Admit Date/Time Apr 10, 2016 at 16:55 Initial Consult Date 04/11/16 Type of Consultation: ID Ordering Provider: LAUREL ANDERSON Subjective no acute events, dw staff, no fevers Objective Vital Signs Date Time Temp Pulse Resp B/P Pulse Ox O2 Delivery O2 Flow Rate FiO2 04/24/16 08:00 97.9 82 18 131/82 98 Room Air Intake and Output 04/23/16 04/23/16 04/24/16 15:00 23:00 07:00 Intake Total 1552 ml 850 ml Output Total 2000 ml 1450 ml Balance -448 ml -600 ml Results/Medications Result Diagram: 04/24/16 0430 04/24/16 0430 Results 24 hrs Laboratory Tests Test 04/23/16 16:42 04/23/16 20:08 04/24/16 04:30 04/24/16 08:20 Bedside Glucose 231 H 252 H 158 Alanine Aminotransferase (ALT/SGPT) 62 Albumin 3.2 L Albumin/Globulin Ratio 0.69 Alkaline Phosphatase 177 H Anion Gap 14 Aspartate Amino Transf (AST/SGOT) 24 Band Neutrophils % 4.0 Basophils # Basophils % Blood Morphology Comment Blood Urea Nitrogen 17 Calcium Level 8.3 L Carbon Dioxide Level 27 Chloride Level 100 Creatinine 1.08 Differential Comment MANUAL DIFF Direct Bilirubin 0.00 Eosinophils # Eosinophils % Globulin 4.60 H Glucose Level 162 # Hematocrit 25.4 L Hemoglobin 8.5 L Indirect Bilirubin 0.5 Lymphocytes # 0.4 L Lymphocytes % 55.0 H Magnesium Level 1.8 Mean Corpuscular Hemoglobin 30.5 Mean Corpuscular Hemoglobin Concent 33.5 Mean Corpuscular Volume 91.1 Mean Platelet Volume 7.8 Monocytes # Monocytes % Neutrophils # 0.3 L Neutrophils % 41.0 Platelet Count 30 #L Potassium Level 3.3 L Red Blood Count 2.79 L Red Cell Distribution Width 22.6 H Sodium Level 138 Total Bilirubin 0.5 Total Protein 7.8 White Blood Count 0.7 L Test 04/24/16 13:01 Bedside Glucose 192 Medications Current Medications Ondansetron HCl (Zofran Inj) 4 mg Q6H PRN IV NAUSEA AND/OR VOMITING; Start 04/10/16 at 19:00 Nitroglycerin (Nitroglycerin (Sl Tab) 0.4 Mg) 1 tab Q5M PRN SL CHEST PAIN; Start 04/10/16 at 19:00 Acetaminophen (Tylenol Tab) 650 mg Q6H PRN PO PAIN LEVEL 1-3 OR FEVER Last administered on 04/11/16at 23:01; Admin Dose 650 MG; Start 04/10/16 at 19:00 Acetaminophen/ Hydrocodone Bitart ([place] (5/325)) 1 tab Q6H PRN PO PAIN LEVEL 4 -6 Last administered on 04/14/16at 23:25; Admin Dose 1 TAB; Start 04/10/16 at 19: 00 Acetaminophen/ Hydrocodone Bitart ([place] (5/325)) 2 tab Q6H PRN PO PAIN LEVEL 7 -10 Last administered on 04/21/16at 04:30; Admin Dose 2 TAB; Start 04/10/16 at 19:00 Morphine Sulfate (morphine) 2 mg Q4H PRN IV PAIN LEVEL 7-10 Last administered on 04/20/16at 15:23; Admin Dose 2 MG; Start 04/10/16 at 19:00 Magnesium Hydroxide (Milk Of Mag) 30 ml DAILY PRN PO CONSTIPATION Last administered on 04/21/16at 05:00; Admin Dose 30 ML; Start 04/10/16 at 19:00 Bisacodyl (Dulcolax Supp) 10 mg DAILY PRN [place] CONSTIPATION; Start 04/10/16 at 19 :00 Pantoprazole (Protonix Tab) 40 mg DAILY@06 PO Last administered on 04/24/16at 06:33; Admin Dose 40 MG; Start 04/11/16 at 06:00 Miscellaneous Information 1 ea NOTE XX ; Start 04/10/16 at 19:00 Glucose (Glutose) 15 gm Q15M PRN PO DECREASED GLUCOSE; Start 04/10/16 at 19:00 Glucose (Glutose) 22.5 gm Q15M PRN PO DECREASED GLUCOSE; Start 04/10/16 at 19: 00 Dextrose (D50w Syringe) 25 ml Q15M PRN IV DECREASED GLUCOSE; Start 04/10/16 at 19:00 Dextrose (D50w Syringe) 50 ml Q15M PRN IV DECREASED GLUCOSE; Start 04/10/16 at 19:00 Glucagon (Glucagen) 1 mg Q15M PRN IM DECREASED GLUCOSE; Start 04/10/16 at 19:00 Glucose (Glutose) 15 gm Q15M PRN BUCCAL DECREASED GLUCOSE; Start 04/10/16 at 19 :00 Metoprolol Tartrate (Lopressor) 100 mg BID PO Last administered on 04/24/16at 08:23; Admin Dose 100 MG; Start 04/11/16 at 09:00 Docusate Sodium (Colace) 100 mg Q12H PO Last administered on 04/23/16at 17:48; Admin Dose 100 MG; Start 04/11/16 at 19:00 Polyethylene Glycol (Miralax) 17 gm DAILY PO Last administered on 04/24/16 08 :23; Admin Dose 17 GM; Start 04/11/16 at 13:00 Levofloxacin (Levaquin) 500 mg DAILY@06 PO Last administered on 04/24/16at 06: 33; Admin Dose 500 MG; Start 04/15/16 at 14:00 Collagenase (Santyl) 1 applic DAILY TOP Last administered on 04/24/16at 08:26; Admin Dose 1 APPLIC; Start 04/17/16 at 16:00 Allopurinol (Zyloprim) 300 mg DAILY PO Last administered on 04/24/16 08:22; Admin Dose 300 MG; Start 04/18/16 at 09:30 IV Flush 10 ml 10 ml PRN PRN IV IV PROTOCOL; Start 04/18/16 at 11:30 Sodium Chloride (NS) 1,000 ml @ 75 mls/hr [id number] IV Last administered on at 03:16; Admin Dose 75 MLS/HR; Start 04/18/16 at 12:30 Dexamethasone (Decadron) 10 mg Q4H PRN IV REACTION; Start 04/18/16 at 13:00 Diphenhydramine HCl 25 mg 25 mg Q4H PRN IV ALLERGIC REACTION; Start 04/18/16 at 13:00 Ondansetron HCl/ Sodium Chloride (Zofran Inj/NS) 54 ml @ 110 mls/hr Q8H PRN IV NAUSEA; Start 04/18/16 at 13:00 Amlodipine Besylate (Norvasc) 5 mg BID PO Last administered on 04/24/16at 08:22 ; Admin Dose 5 MG; Start 04/21/16 at 21:00 Lisinopril (Zestril) 20 mg BID PO Last administered on 04/24/16at 08:22; Admin Dose 20 MG; Start 04/21/16 at 21:00 Hydralazine HCl (Apresoline) 10 mg Q8H PRN IV ELEVATED BLOOD PRESSURE; Start 04/21/16 at 12:00 Insulin Glargine 50 unit 50 unit QHS SC Last administered on 04/23/16at 21:32; Admin Dose 50 UNIT; Start 04/23/16 at 21:00 Vancomycin HCl 1.25 gm/Sodium Chloride 250 ml @ 83.333 mls/ hr Q12H IVPB ; Start 04/24/16 at 16:00 Rituximab/Sodium Chloride (Rituxan/NS) 250 ml @ 62.5 mls/hr ONCE IV ; Start at 13:30; Stop 04/24/16 at 17:29 Assessment/Plan Chief Complaint/Hosp Course ANTIMICROBIALS: 1. Vancomycin 2. Levaquin. Indwellings: LUE PICC 04/18/16 PHYSICAL EXAMINATION: GENERAL: Obese, well-developed, middle-aged man who is awake, in no distress. HEENT: Head atraumatic, normocephalic. Sclerae anicteric. Buccal mucosa pink. NECK: Supple. Trachea midline. LUNGS: Chest rise symmetrical. Breath sounds clear, diminished at bases. HEART: S1, S2. ABDOMEN: Soft. Bowel tones present. EXTREMITIES: With right foot edema ASSESSMENT: 1. 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 2. Systemic inflammatory response syndrome with fever on admission, elevated ESR, significant thrombocytopenia and anemia. The patient is being followed by hematology team, status post CT-guided bone marrow biopsy. 3. Diabetes. 4. Hypertension. 5. Legally blind. 6. 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 Neutropenia PLAN: Clinically unchanged, no fevers, continue abx, chemotherapy per oncology , f/u podiatry rec-s [facility] staff Problems: JUVENAL SANCHEZ NP Apr 24, 2016 13:14
[2016-04-24] MEDS ORDERED: RITUXIMAB IV SCH ×2 (13:30→14:00)
[2016-04-24] MEDS ORDERED: SOD CHLORIDE 0.9% IV SCH ×2 (13:30→14:00)
[2016-04-24] MEDS ORDERED: DIPHENHYDRAMINE IVPB SCH (14:00)
[2016-04-24] MEDS ORDERED: DEXAMETHASONE IVPB SCH (14:00)
[2016-04-24] MEDS ORDERED: [UNRECOGNIZED DRUG - OTHER] IVPB SCH (14:00)
[2016-04-24] MEDS ORDERED: ONDANSETRON IVPB SCH (14:00)
--- NOTE | 2016-04-24 15:11 | CONS ---
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 Problems: Additional Assessment/Plan -Pt is now day 5 of cladribine 0.14mg/kg/day continues IV infusion x 5 days. continue chemotherapy even while patient is on antibiotics. Patients with hairy cell leukemia are very immunocompromised and at high risk for infection. We have to treat the underlying leukemia to help him fight his multiple chronic infections. Will continue chemotherapy -given patient is CD 20 positive will give a dose of Rituxan after cladribine infusion is done. Orders have been written and given to charge nurse Kimberly - hemolysis unlikely with high haptoglobin, normal LDH and peripheral smear without schistocytes. -f/u blood cultures as pt appears to have a disseminated infection which may be the cause of this severe anemia. Cultures are thus far negative -allopurinol started as prophylaxis for tumor lysis syndrome -neutropenia related to cladribine, continue to monitor, plan to start Neupogen after cladribine complete per Dr. Dwyer Approximately 40 min were spent at patient's bedside and in coordination of his care Consultation Date/Type/Reason Admit Date/Time Apr 10, 2016 at 16:55 Initial Consult Date 04/11/16 Type of Consultation: Hematology Reason for Consultation Hairy cell leukemia Referring Provider: LAUREL ANDERSON 24 HR Interval Summary Free Text/Dictation no acute overnight events. pt continues on cladribine Exam/Review of Systems Vital Signs Vitals Vital Signs Date Time Temp Pulse Resp B/P Pulse Ox O2 Delivery O2 Flow Rate FiO2 04/24/16 08:00 97.9 82 18 131/82 98 Room Air Intake and Output 04/23/16 04/23/16 04/24/16 14:59 22:59 06:59 Intake Total 1552 ml 850 ml Output Total 2000 ml 1450 ml Balance -448 ml -600 ml Exam Constitutional: alert, oriented Psych: nl mood/affect, no complaints Head: normocephalic Eyes: nl conjunctiva ENMT: nl external ears & nose, nl lips & teeth Neck: non-tender, supple Respiratory: clear to auscultation, normal air movement Cardiovascular: regular rate and rhythm Gastrointestinal: soft Musculoskeletal: nl extremities to inspection, nl gait and stance Results Result Diagram: 04/24/16 0430 04/24/16 0430 Results 24 hrs Laboratory Tests Test 04/23/16 16:42 04/23/16 20:08 04/24/16 04:30 04/24/16 08:20 Bedside Glucose 231 H 252 H 158 Alanine Aminotransferase (ALT/SGPT) 62 Albumin 3.2 L Albumin/Globulin Ratio 0.69 Alkaline Phosphatase 177 H Anion Gap 14 Aspartate Amino Transf (AST/SGOT) 24 Band Neutrophils % 4.0 Basophils # Basophils % Blood Morphology Comment Blood Urea Nitrogen 17 Calcium Level 8.3 L Carbon Dioxide Level 27 Chloride Level 100 Creatinine 1.08 Differential Comment MANUAL DIFF Direct Bilirubin 0.00 Eosinophils # Eosinophils % Globulin 4.60 H Glucose Level 162 # Hematocrit 25.4 L Hemoglobin 8.5 L Indirect Bilirubin 0.5 Lymphocytes # 0.4 L Lymphocytes % 55.0 H Magnesium Level 1.8 Mean Corpuscular Hemoglobin 30.5 Mean Corpuscular Hemoglobin Concent 33.5 Mean Corpuscular Volume 91.1 Mean Platelet Volume 7.8 Monocytes # Monocytes % Neutrophils # 0.3 L Neutrophils % 41.0 Platelet Count 30 #L Potassium Level 3.3 L Red Blood Count 2.79 L Red Cell Distribution Width 22.6 H Sodium Level 138 Total Bilirubin 0.5 Total Protein 7.8 White Blood Count 0.7 L Test 04/24/16 13:01 Bedside Glucose 192 Medications Medications Current Medications Ondansetron HCl (Zofran Inj) 4 mg Q6H PRN IV NAUSEA AND/OR VOMITING; Start 04/10/16 at 19:00 Nitroglycerin (Nitroglycerin (Sl Tab) 0.4 Mg) 1 tab Q5M PRN SL CHEST PAIN; Start 04/10/16 at 19:00 Acetaminophen (Tylenol Tab) 650 mg Q6H PRN PO PAIN LEVEL 1-3 OR FEVER Last administered on 04/11/16at 23:01; Admin Dose 650 MG; Start 04/10/16 at 19:00 Acetaminophen/ Hydrocodone Bitart ([place] (5/325)) 1 tab Q6H PRN PO PAIN LEVEL 4 -6 Last administered on 04/14/16at 23:25; Admin Dose 1 TAB; Start 04/10/16 at 19: 00 Acetaminophen/ Hydrocodone Bitart ([place] (5/325)) 2 tab Q6H PRN PO PAIN LEVEL 7 -10 Last administered on 04/21/16at 04:30; Admin Dose 2 TAB; Start 04/10/16 at 19:00 Morphine Sulfate (morphine) 2 mg Q4H PRN IV PAIN LEVEL 7-10 Last administered on 04/20/16at 15:23; Admin Dose 2 MG; Start 04/10/16 at 19:00 Magnesium Hydroxide (Milk Of Mag) 30 ml DAILY PRN PO CONSTIPATION Last administered on 04/21/16at 05:00; Admin Dose 30 ML; Start 04/10/16 at 19:00 Bisacodyl (Dulcolax Supp) 10 mg DAILY PRN [place] CONSTIPATION; Start 04/10/16 at 19 :00 Pantoprazole (Protonix Tab) 40 mg DAILY@06 PO Last administered on 04/24/16at 06:33; Admin Dose 40 MG; Start 04/11/16 at 06:00 Miscellaneous Information 1 ea NOTE XX ; Start 04/10/16 at 19:00 Glucose (Glutose) 15 gm Q15M PRN PO DECREASED GLUCOSE; Start 04/10/16 at 19:00 Glucose (Glutose) 22.5 gm Q15M PRN PO DECREASED GLUCOSE; Start 04/10/16 at 19: 00 Dextrose (D50w Syringe) 25 ml Q15M PRN IV DECREASED GLUCOSE; Start 04/10/16 at 19:00 Dextrose (D50w Syringe) 50 ml Q15M PRN IV DECREASED GLUCOSE; Start 04/10/16 at 19:00 Glucagon (Glucagen) 1 mg Q15M PRN IM DECREASED GLUCOSE; Start 04/10/16 at 19:00 Glucose (Glutose) 15 gm Q15M PRN BUCCAL DECREASED GLUCOSE; Start 04/10/16 at 19 :00 Metoprolol Tartrate (Lopressor) 100 mg BID PO Last administered on 04/24/16at 08:23; Admin Dose 100 MG; Start 04/11/16 at 09:00 Docusate Sodium (Colace) 100 mg Q12H PO Last administered on 04/23/16at 17:48; Admin Dose 100 MG; Start 04/11/16 at 19:00 Polyethylene Glycol (Miralax) 17 gm DAILY PO Last administered on 04/24/16at 08 :23; Admin Dose 17 GM; Start 04/11/16 at 13:00 Levofloxacin (Levaquin) 500 mg DAILY@06 PO Last administered on 04/24/16at 06: 33; Admin Dose 500 MG; Start 04/15/16 at 14:00 Collagenase (Santyl) 1 applic DAILY TOP Last administered on 04/24/16at 08:26; Admin Dose 1 APPLIC; Start 04/17/16 at 16:00 Allopurinol (Zyloprim) 300 mg DAILY PO Last administered on 04/24/16at 08:22; Admin Dose 300 MG; Start 04/18/16 at 09:30 IV Flush 10 ml 10 ml PRN PRN IV IV PROTOCOL; Start 04/18/16 at 11:30 Sodium Chloride (NS) 1,000 ml @ 75 mls/hr [id number] IV Last administered on at 03:16; Admin Dose 75 MLS/HR; Start 04/18/16 at 12:30 Dexamethasone (Decadron) 10 mg Q4H PRN IV REACTION; Start 04/18/16 at 13:00 Diphenhydramine HCl 25 mg 25 mg Q4H PRN IV ALLERGIC REACTION; Start 04/18/16 at 13:00 Ondansetron HCl/ Sodium Chloride (Zofran Inj/NS) 54 ml @ 110 mls/hr Q8H PRN IV NAUSEA; Start 04/18/16 at 13:00 Amlodipine Besylate (Norvasc) 5 mg BID PO Last administered on 04/24/16at 08:22 ; Admin Dose 5 MG; Start 04/21/16 at 21:00 Lisinopril (Zestril) 20 mg BID PO Last administered on 04/24/16at 08:22; Admin Dose 20 MG; Start 04/21/16 at 21:00 Hydralazine HCl (Apresoline) 10 mg Q8H PRN IV ELEVATED BLOOD PRESSURE; Start 04/21/16 at 12:00 Insulin Glargine 50 unit 50 unit QHS SC Last administered on 04/23/16at 21:32; Admin Dose 50 UNIT; Start 04/23/16 at 21:00 Vancomycin HCl 1.25 gm/Sodium Chloride 250 ml @ 83.333 mls/ hr Q12H IVPB ; Start 04/24/16 at 16:00 Rituximab/Sodium Chloride (Rituxan/NS) 340 ml @ 62.5 mls/hr ONCE IV Last administered on 04/24/16at 15:02; Admin Dose 62.5 MLS/HR; Start 04/24/16 at 14: 00; Stop 04/24/16 at 19:27 TOY DWYER M.D. Apr 24, 2016 15:10
[2016-04-24] MEDS: VANCOMYCIN 1.25 GM in SOD CHLORIDE 0.9% 250 ML IVPB SCH (15:25)
[2016-04-24] MEDS ORDERED: MEPERIDINE 25 MG INJ IV ONE (17:30)
[2016-04-24] MEDS ORDERED: DEXAMETHASONE 10 MG/ML 1 ML INJ IV ONE (17:30)
[2016-04-24] MEDS: ACETAMINOPHEN 325 MG TAB PO PRN (18:03)
[2016-04-24] MEDS: INSULIN GLARGINE [LANtus] 3 ML PEN SC SCH (21:37)
[2016-04-25 00:50] VITALS: BP 121/73; PULSE 77; RESP 18
[2016-04-25 01:52] VITALS: BP 130/78; PULSE 75; RESP 18
[2016-04-25] MEDS: VANCOMYCIN 1.25 GM in SOD CHLORIDE 0.9% 250 ML IVPB SCH ×3 (04:00→16:08)
[2016-04-25] MEDS: SOD CHLORIDE 0.9% 1,000 ML IV SCH ×3 (04:30→17:09)
[2016-04-25 05:43] LABS: ALBUMIN 3.2 g/dl (3.3-4.9)
[2016-04-25 05:44] LABS: POTASSIUM 4.5 mmol/L (3.5-5.1)
[2016-04-25 05:46] LABS: BILIRUBIN,INDIRECT 0.4 mg/dl (0-1.1); BILIRUBIN,TOTAL 0.4 mg/dl (0.2-1.3); CREATININE 0.97 mg/dl (0.61-1.24)
[2016-04-25 05:47] LABS: ALBUMIN/GLOBULIN RATIO 0.68; CALCIUM 8.4 mg/dl (8.4-10.2); TOTAL PROTEIN 7.9 g/dl (6.1-8.1)
[2016-04-25] MEDS: DOCUSATE SODIUM 100 MG CAP PO SCH ×2 (06:02→17:48)
[2016-04-25] MEDS: PANTOPRAZOLE (EC) 40 MG TAB PO SCH (06:02)
[2016-04-25] MEDS: LEVOFLOXACIN 500 MG TAB PO SCH (06:02)
[2016-04-25 06:07] LABS: HEMATOCRIT 25.7 % (42.0-52.0); HEMOGLOBIN 8.6 g/dl (14.0-18.0); MEAN CORPUSCULAR HEMOGLOBIN 30.2 pg (29.0-33.0); MEAN CORPUSCULAR HGB CONC 33.5 g/dl (32.0-37.0); MEAN CORPUSCULAR VOLUME 90.2 fl (82.0-101.0); RED BLOOD COUNT 2.85 10^6/ul (4.70-6.10); RED CELL DISTRIBUTION WIDTH 22.8 % (11.5-14.5); UNCORRECTED WBC 0.6 10^3/ul (4.8-10.8); WHITE BLOOD COUNT 0.6 10^3/ul (4.8-10.8)
[2016-04-25 06:17] LABS: CONDITION 1; LH ANALYZER COMMENTS 1; SUSPECT 1
[2016-04-25 06:19] LABS: PLATELET COUNT 26 10^3/UL (140-440)
[2016-04-25 08:00] VITALS: BP 132/77; PULSE 80; RESP 17
[2016-04-25] MEDS: POLYETHYLENE GLYCOL 17 GM PACKET PO SCH ×2 (09:00→09:31)
[2016-04-25] MEDS: METOPROLOL 100 MG TAB PO SCH ×3 (09:31→22:26)
[2016-04-25] MEDS: ALLOPURINOL 300 MG TAB PO SCH (09:31)
[2016-04-25] MEDS: LISINOPRIL 20 MG TAB PO SCH ×3 (09:31→22:25)
[2016-04-25 09:32] LABS: LYMPHOCYTES # 0.2 10^3/ul (0.8-2.9); NEUTROPHIL # 0.4 10^3/ul (1.6-7.5)
[2016-04-25] MEDS: COLLAGENASE 30 GM TUBE TOP SCH (09:32)
[2016-04-25] MEDS: AMLODIPINE 5 MG TAB PO SCH ×3 (09:32→22:25)
[2016-04-25 09:33] LABS: ANISOCYTOSIS 3+; PLATELET ESTIMATE PLT APPEAR DECREASED
[2016-04-25] MEDS: INSULIN ASPART [NOVOLOG] 3 ML PEN SC SCH ×6 (09:39→17:43)
--- NOTE | 2016-04-25 11:21 | PN ---
Date/Time of Note Date/Time of Note DATE: 04/25/16 TIME: 11:20 Assessment/Plan VTE Prophylaxis VTE Prophylaxis Intervention: SCD's Lines/Catheters IV Catheter Type (from Nrs): PICC Line Central line still needed: Yes (for chemo ) Urinary Cath still in place: No Assessment/Plan Assessment/Plan 55-year-old male with: 1. Hairy cell Leukemia. patient admitted with anemia, acute on chronic, pancytopenia, primarily thrombocytopenic. HIV negative. Now Neutropenic. Appreciate Hematology's assistance. S/p Chemo as of yesterday, pancytopenic Hopefully count recovery soon Dr Flannery following. 2. Fever with likely acute infection of his right 1st and 2nd toe. ESR elevated. Afebrile now since admission. The patient also had a rash, maculopapular. He does have a history of methicillin-resistant Staphylococcus aureus skin and soft-tissue infection years ago requiring extensive debridement of the left upper extremity. MRI foot with osteomyelitis and JOSE J negative Continue Vancomycin and Levaquin per ID Blood cultures NGTD and wound cultures pending. Wound care and Dr Thomas following patient. 3. Diabetes mellitus. A1c back at 7.2 ...Continue current insulin regimen, keeping off glyburide. On Tradjenta. Increased Lantus to 50 and premeal insulin to 12 Appreciate certified breastfeeding educator recommendations. Patient really needs to be compliant with ADA diet. BG currently up due to non compliance even inpatient stills get food from family members visiting ... 4. Cardiomegaly, EF 50%. No further episodes of NSVT since yesterday. Continue Lopressor/Bblock Electrolytes stable again today. S/p negative JOSE J 5. Hypertension. Continue beta blockers, Norvasc and Lisinopril. Also on hydralazine prn. 6. Constipation, relieved: continue Miralax and Colace scheduled and add MOM along with Dulcolax prn. 7. 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 patient was started on 3 weeks course of Valacyclovir ...Will need Ophthalmology eval outpatient either way if not done prior Patient blind Prophylaxis. Proton pump inhibitors for GI prophylaxis and SCDs for DVT prophylaxis. DISPOSITION: On chemo. F/u wound care and follow up further ID and Podiatry recs. Will likely require SNF at discharge. Subjective 24 Hr Interval Summary Free Text/Dictation Patient doing well S/p reaction overnight to Rituximab which is now resolved Pancytopenia/Neutropenia post chemo Exam/Review of Systems Vital Signs Vitals Vital Signs Date Time Temp Pulse Resp B/P Pulse Ox O2 Delivery O2 Flow Rate FiO2 04/25/16 08:00 97.8 80 17 132/77 98 Room Air Intake and Output 04/24/16 04/24/16 04/25/16 15:00 23:00 07:00 Intake Total 2230 ml 340 ml Output Total 1200 ml Balance 1030 ml 340 ml Exam Constitutional: alert, oriented Respiratory: clear to auscultation, normal air movement Cardiovascular: nl pulses, regular rate and rhythm Gastrointestinal: non-tender, soft Musculoskeletal: nl extremities to inspection Extremities: normal pulses, other (no edema, clubbing or cyanosis ) 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: FURNITURE RESTORER II-XII intact, nl mental status, nl speech, nl strength Results Result Diagram: 04/25/16 0450 04/25/16 0450 Results 24 hrs Laboratory Tests Test 04/24/16 13:01 04/24/16 18:04 04/24/16 20:47 04/25/16 04:50 Bedside Glucose 192 144 138 Alanine Aminotransferase (ALT/SGPT) 102 H Albumin 3.2 L Albumin/Globulin Ratio 0.68 Alkaline Phosphatase 245 H Anion Gap 11 Anisocytosis 3+ Aspartate Amino Transf (AST/SGOT) 66 #H Band Neutrophils % 1.0 Basophils # Basophils % Blood Morphology Comment Blood Urea Nitrogen 23 H Calcium Level 8.4 Carbon Dioxide Level 27 Chloride Level 103 Creatinine 0.97 Differential Comment MANUAL DIFF Direct Bilirubin 0.00 Eosinophils # Eosinophils % Globulin 4.70 H Glucose Level 266 #H Hematocrit 25.7 L Hemoglobin 8.6 L Indirect Bilirubin 0.4 Lymphocytes # 0.2 L Lymphocytes % 29.0 Mean Corpuscular Hemoglobin 30.2 Mean Corpuscular Hemoglobin Concent 33.5 Mean Corpuscular Volume 90.2 Mean Platelet Volume 8.0 Monocytes # Monocytes % Neutrophils # 0.4 L Neutrophils % 70.0 Nucleated Red Blood Cells % 5.0 H Platelet Count 26 *L Platelet Estimate PLT APPEAR DECREASED Potassium Level 4.5 Red Blood Count 2.85 L Red Cell Distribution Width 22.8 H Sodium Level 136 Total Bilirubin 0.4 Total Protein 7.9 White Blood Count 0.6 L Test 04/25/16 08:26 Bedside Glucose 232 H Medications Medications Current Medications Ondansetron HCl (Zofran Inj) 4 mg Q6H PRN IV NAUSEA AND/OR VOMITING; Start 04/10/16 at 19:00 Nitroglycerin (Nitroglycerin (Sl Tab) 0.4 Mg) 1 tab Q5M PRN SL CHEST PAIN; Start 04/10/16 at 19:00 Acetaminophen (Tylenol Tab) 650 mg Q6H PRN PO PAIN LEVEL 1-3 OR FEVER Last administered on 04/24/16at 18:03; Admin Dose 650 MG; Start 04/10/16 at 19:00 Acetaminophen/ Hydrocodone Bitart ([place] (5/325)) 1 tab Q6H PRN PO PAIN LEVEL 4 -6 Last administered on 04/14/16at 23:25; Admin Dose 1 TAB; Start 04/10/16 at 19: 00 Acetaminophen/ Hydrocodone Bitart ([place] (5/325)) 2 tab Q6H PRN PO PAIN LEVEL 7 -10 Last administered on 04/21/16at 04:30; Admin Dose 2 TAB; Start 04/10/16 at 19:00 Morphine Sulfate (morphine) 2 mg Q4H PRN IV PAIN LEVEL 7-10 Last administered on 04/20/16at 15:23; Admin Dose 2 MG; Start 04/10/16 at 19:00 Magnesium Hydroxide (Milk Of Mag) 30 ml DAILY PRN PO CONSTIPATION Last administered on 04/21/16at 05:00; Admin Dose 30 ML; Start 04/10/16 at 19:00 Bisacodyl (Dulcolax Supp) 10 mg DAILY PRN [place] CONSTIPATION; Start 04/10/16 at 19 :00 Pantoprazole (Protonix Tab) 40 mg DAILY@06 PO Last administered on 04/25/16at 06:02; Admin Dose 40 MG; Start 04/11/16 at 06:00 Miscellaneous Information 1 ea NOTE XX ; Start 04/10/16 at 19:00 Glucose (Glutose) 15 gm Q15M PRN PO DECREASED GLUCOSE; Start 04/10/16 at 19:00 Glucose (Glutose) 22.5 gm Q15M PRN PO DECREASED GLUCOSE; Start 04/10/16 at 19: 00 Dextrose (D50w Syringe) 25 ml Q15M PRN IV DECREASED GLUCOSE; Start 04/10/16 at 19:00 Dextrose (D50w Syringe) 50 ml Q15M PRN IV DECREASED GLUCOSE; Start 04/10/16 at 19:00 Glucagon (Glucagen) 1 mg Q15M PRN IM DECREASED GLUCOSE; Start 04/10/16 at 19:00 Glucose (Glutose) 15 gm Q15M PRN BUCCAL DECREASED GLUCOSE; Start 04/10/16 at 19 :00 Metoprolol Tartrate (Lopressor) 100 mg BID PO Last administered on 04/25/16 09:31; Admin Dose 100 MG; Start 04/11/16 at 09:00 Docusate Sodium (Colace) 100 mg Q12H PO Last administered on 04/25/16 06:02; Admin Dose 100 MG; Start 04/11/16 at 19:00 Polyethylene Glycol (Miralax) 17 gm DAILY PO Last administered on 04/25/16 09 :31; Admin Dose 17 GM; Start 04/11/16 at 13:00 Levofloxacin (Levaquin) 500 mg DAILY@06 PO Last administered on 04/25/16at 06: 02; Admin Dose 500 MG; Start 04/15/16 at 14:00 Collagenase (Santyl) 1 applic DAILY TOP Last administered on 04/25/16 09:32; Admin Dose 1 APPLIC; Start 04/17/16 at 16:00 Allopurinol (Zyloprim) 300 mg DAILY PO Last administered on 04/25/16 09:31; Admin Dose 300 MG; Start 04/18/16 at 09:30 IV Flush 10 ml 10 ml PRN PRN IV IV PROTOCOL; Start 04/18/16 at 11:30 Sodium Chloride (NS) 1,000 ml @ 75 mls/hr [id number] IV Last administered on at 15:26; Admin Dose 75 MLS/HR; Start 04/18/16 at 12:30 Dexamethasone (Decadron) 10 mg Q4H PRN IV REACTION Last administered on at 16:58; Admin Dose 10 MG; Start 04/18/16 at 13:00 Diphenhydramine HCl 25 mg 25 mg Q4H PRN IV ALLERGIC REACTION Last administered on 04/24/16at 16:42; Admin Dose 25 MG; Start 04/18/16 at 13:00 Ondansetron HCl/ Sodium Chloride (Zofran Inj/NS) 54 ml @ 110 mls/hr Q8H PRN IV NAUSEA; Start 04/18/16 at 13:00 Amlodipine Besylate (Norvasc) 5 mg BID PO Last administered on 04/25/16at 09:32 ; Admin Dose 5 MG; Start 04/21/16 at 21:00 Lisinopril (Zestril) 20 mg BID PO Last administered on 04/25/16at 09:31; Admin Dose 20 MG; Start 04/21/16 at 21:00 Hydralazine HCl (Apresoline) 10 mg Q8H PRN IV ELEVATED BLOOD PRESSURE; Start 04/21/16 at 12:00 Insulin Glargine 50 unit 50 unit QHS SC Last administered on 04/24/16at 21:37; Admin Dose 50 UNIT; Start 04/23/16 at 21:00 Vancomycin HCl/ Sodium Chloride (Vancocin/NS) 250 ml @ 83.333 mls/ hr Q12H IVPB Last administered on 04/25/16 06:02; Admin Dose 83.333 MLS/HR; Start at 16:00 LAUREL ANDERSON Apr 25, 2016 11:21
--- NOTE | 2016-04-25 11:58 | CONS ---
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 Problems: Additional Assessment/Plan -Pt is now s/p 5 days of cladribine 0.14mg/kg/day continues IV infusion x 5 days + Rituxan. -continue antibiotics per ID -neutropenia related to cladribine, continue to monitor. start Neupogen today Approximately 40 min were spent at patient's bedside and in coordination of his care Consultation Date/Type/Reason Admit Date/Time Apr 10, 2016 at 16:55 Initial Consult Date 04/11/16 Type of Consultation: Hematology Reason for Consultation Hairy cell leukemia Referring Provider: LAUREL ANDERSON 24 HR Interval Summary Free Text/Dictation Rituxan was given yesterday. pt had a mild reaction that was controlled with Demerol. now feels well. no fevers Exam/Review of Systems Vital Signs Vitals Vital Signs Date Time Temp Pulse Resp B/P Pulse Ox O2 Delivery O2 Flow Rate FiO2 04/25/16 08:00 97.8 80 17 132/77 98 Room Air Intake and Output 04/24/16 04/24/16 04/25/16 15:00 23:00 07:00 Intake Total 2230 ml 340 ml Output Total 1200 ml Balance 1030 ml 340 ml Exam Constitutional: alert, oriented Head: normocephalic Eyes: nl conjunctiva, other (blind) ENMT: nl external ears & nose, nl lips & teeth Neck: non-tender, supple Respiratory: clear to auscultation, normal air movement Cardiovascular: nl pulses, regular rate and rhythm Gastrointestinal: soft Musculoskeletal: nl extremities to inspection, nl gait and stance Extremities: normal pulses Results Result Diagram: 04/25/16 0450 04/25/16 0450 Results 24 hrs Laboratory Tests Test 04/24/16 13:01 04/24/16 18:04 04/24/16 20:47 04/25/16 04:50 Bedside Glucose 192 144 138 Alanine Aminotransferase (ALT/SGPT) 102 H Albumin 3.2 L Albumin/Globulin Ratio 0.68 Alkaline Phosphatase 245 H Anion Gap 11 Anisocytosis 3+ Aspartate Amino Transf (AST/SGOT) 66 #H Band Neutrophils % 1.0 Basophils # Basophils % Blood Morphology Comment Blood Urea Nitrogen 23 H Calcium Level 8.4 Carbon Dioxide Level 27 Chloride Level 103 Creatinine 0.97 Differential Comment MANUAL DIFF Direct Bilirubin 0.00 Eosinophils # Eosinophils % Globulin 4.70 H Glucose Level 266 #H Hematocrit 25.7 L Hemoglobin 8.6 L Indirect Bilirubin 0.4 Lymphocytes # 0.2 L Lymphocytes % 29.0 Mean Corpuscular Hemoglobin 30.2 Mean Corpuscular Hemoglobin Concent 33.5 Mean Corpuscular Volume 90.2 Mean Platelet Volume 8.0 Monocytes # Monocytes % Neutrophils # 0.4 L Neutrophils % 70.0 Nucleated Red Blood Cells % 5.0 H Platelet Count 26 *L Platelet Estimate PLT APPEAR DECREASED Potassium Level 4.5 Red Blood Count 2.85 L Red Cell Distribution Width 22.8 H Sodium Level 136 Total Bilirubin 0.4 Total Protein 7.9 White Blood Count 0.6 L Test 04/25/16 08:26 04/25/16 11:53 Bedside Glucose 232 H 277 H Medications Medications Current Medications Ondansetron HCl (Zofran Inj) 4 mg Q6H PRN IV NAUSEA AND/OR VOMITING; Start 04/10/16 at 19:00 Nitroglycerin (Nitroglycerin (Sl Tab) 0.4 Mg) 1 tab Q5M PRN SL CHEST PAIN; Start 04/10/16 at 19:00 Acetaminophen (Tylenol Tab) 650 mg Q6H PRN PO PAIN LEVEL 1-3 OR FEVER Last administered on 04/24/16at 18:03; Admin Dose 650 MG; Start 04/10/16 at 19:00 Acetaminophen/ Hydrocodone Bitart ([place] (5/325)) 1 tab Q6H PRN PO PAIN LEVEL 4 -6 Last administered on 04/14/16at 23:25; Admin Dose 1 TAB; Start 04/10/16 at 19: 00 Acetaminophen/ Hydrocodone Bitart ([place] (5/325)) 2 tab Q6H PRN PO PAIN LEVEL 7 -10 Last administered on 04/21/16at 04:30; Admin Dose 2 TAB; Start 04/10/16 at 19:00 Morphine Sulfate (morphine) 2 mg Q4H PRN IV PAIN LEVEL 7-10 Last administered on 04/20/16at 15:23; Admin Dose 2 MG; Start 04/10/16 at 19:00 Magnesium Hydroxide (Milk Of Mag) 30 ml DAILY PRN PO CONSTIPATION Last administered on 04/21/16at 05:00; Admin Dose 30 ML; Start 04/10/16 at 19:00 Bisacodyl (Dulcolax Supp) 10 mg DAILY PRN [place] CONSTIPATION; Start 04/10/16 at 19 :00 Pantoprazole (Protonix Tab) 40 mg DAILY@06 PO Last administered on 04/25/16at 06:02; Admin Dose 40 MG; Start 04/11/16 at 06:00 Miscellaneous Information 1 ea NOTE XX ; Start 04/10/16 at 19:00 Glucose (Glutose) 15 gm Q15M PRN PO DECREASED GLUCOSE; Start 04/10/16 at 19:00 Glucose (Glutose) 22.5 gm Q15M PRN PO DECREASED GLUCOSE; Start 04/10/16 at 19: 00 Dextrose (D50w Syringe) 25 ml Q15M PRN IV DECREASED GLUCOSE; Start 04/10/16 at 19:00 Dextrose (D50w Syringe) 50 ml Q15M PRN IV DECREASED GLUCOSE; Start 04/10/16 at 19:00 Glucagon (Glucagen) 1 mg Q15M PRN IM DECREASED GLUCOSE; Start 04/10/16 at 19:00 Glucose (Glutose) 15 gm Q15M PRN BUCCAL DECREASED GLUCOSE; Start 04/10/16 at 19 :00 Metoprolol Tartrate (Lopressor) 100 mg BID PO Last administered on 04/25/16at 09:31; Admin Dose 100 MG; Start 04/11/16 at 09:00 Docusate Sodium (Colace) 100 mg Q12H PO Last administered on 04/25/16at 06:02; Admin Dose 100 MG; Start 04/11/16 at 19:00 Polyethylene Glycol (Miralax) 17 gm DAILY PO Last administered on 04/25/16at 09 :31; Admin Dose 17 GM; Start 04/11/16 at 13:00 Levofloxacin (Levaquin) 500 mg DAILY@06 PO Last administered on 04/25/16 06: 02; Admin Dose 500 MG; Start 04/15/16 at 14:00 Collagenase (Santyl) 1 applic DAILY TOP Last administered on 04/25/16 09:32; Admin Dose 1 APPLIC; Start 04/17/16 at 16:00 Allopurinol (Zyloprim) 300 mg DAILY PO Last administered on 04/25/16 09:31; Admin Dose 300 MG; Start 04/18/16 at 09:30 IV Flush 10 ml 10 ml PRN PRN IV IV PROTOCOL; Start 04/18/16 at 11:30 Sodium Chloride (NS) 1,000 ml @ 75 mls/hr [id number] IV Last administered on 15:26; Admin Dose 75 MLS/HR; Start 04/18/16 at 12:30 Dexamethasone (Decadron) 10 mg Q4H PRN IV REACTION Last administered on 16:58; Admin Dose 10 MG; Start 04/18/16 at 13:00 Diphenhydramine HCl 25 mg 25 mg Q4H PRN IV ALLERGIC REACTION Last administered on 04/24/16 16:42; Admin Dose 25 MG; Start 04/18/16 at 13:00 Ondansetron HCl/ Sodium Chloride (Zofran Inj/NS) 54 ml @ 110 mls/hr Q8H PRN IV NAUSEA; Start 04/18/16 at 13:00 Amlodipine Besylate (Norvasc) 5 mg BID PO Last administered on 04/25/16 09:32 ; Admin Dose 5 MG; Start 04/21/16 at 21:00 Lisinopril (Zestril) 20 mg BID PO Last administered on 04/25/16 09:31; Admin Dose 20 MG; Start 04/21/16 at 21:00 Hydralazine HCl (Apresoline) 10 mg Q8H PRN IV ELEVATED BLOOD PRESSURE; Start 04/21/16 at 12:00 Insulin Glargine 50 unit 50 unit QHS SC Last administered on 04/24/16 21:37; Admin Dose 50 UNIT; Start 04/23/16 at 21:00 Vancomycin HCl/ Sodium Chloride (Vancocin/NS) 250 ml @ 83.333 mls/ hr Q12H IVPB Last administered on 12/20/16at 06:02; Admin Dose 83.333 MLS/HR; Start at 16:00 TOY DWYER M.D. Apr 25, 2016 11:58
--- NOTE | 2016-04-25 13:17 | CONS ---
Date/Time of Note Date/Time of Note DATE: 04/25/16 TIME: 13:15 Consult Date/Type/Reason Admit Date/Time Apr 10, 2016 at 16:55 Initial Consult Date 04/11/16 Type of Consultation: ID Ordering Provider: LAUREL RUIZ Subjective S/p reaction to chemo last night, now sleeping, no fevers, nad Objective Vital Signs Date Time Temp Pulse Resp B/P Pulse Ox O2 Delivery O2 Flow Rate FiO2 04/25/16 08:00 97.8 80 17 132/77 98 Room Air Intake and Output 04/24/16 04/24/16 04/25/16 15:00 23:00 07:00 Intake Total 2230 ml 340 ml Output Total 1200 ml Balance 1030 ml 340 ml Results/Medications Result Diagram: 04/25/16 0450 04/25/16 0450 Results 24 hrs Laboratory Tests Test 04/24/16 18:04 04/24/16 20:47 04/25/16 04:50 04/25/16 08:26 Bedside Glucose 144 138 232 H Alanine Aminotransferase (ALT/SGPT) 102 H Albumin 3.2 L Albumin/Globulin Ratio 0.68 Alkaline Phosphatase 245 H Anion Gap 11 Anisocytosis 3+ Aspartate Amino Transf (AST/SGOT) 66 #H Band Neutrophils % 1.0 Basophils # Basophils % Blood Morphology Comment Blood Urea Nitrogen 23 H Calcium Level 8.4 Carbon Dioxide Level 27 Chloride Level 103 Creatinine 0.97 Differential Comment MANUAL DIFF Direct Bilirubin 0.00 Eosinophils # Eosinophils % Globulin 4.70 H Glucose Level 266 #H Hematocrit 25.7 L Hemoglobin 8.6 L Indirect Bilirubin 0.4 Lymphocytes # 0.2 L Lymphocytes % 29.0 Mean Corpuscular Hemoglobin 30.2 Mean Corpuscular Hemoglobin Concent 33.5 Mean Corpuscular Volume 90.2 Mean Platelet Volume 8.0 Monocytes # Monocytes % Neutrophils # 0.4 L Neutrophils % 70.0 Nucleated Red Blood Cells % 5.0 H Platelet Count 26 *L Platelet Estimate PLT APPEAR DECREASED Potassium Level 4.5 Red Blood Count 2.85 L Red Cell Distribution Width 22.8 H Sodium Level 136 Total Bilirubin 0.4 Total Protein 7.9 White Blood Count 0.6 L Test 04/25/16 11:53 Bedside Glucose 277 H Medications Current Medications Ondansetron HCl (Zofran Inj) 4 mg Q6H PRN IV NAUSEA AND/OR VOMITING; Start 12/ 5/16 at 19:00 Nitroglycerin (Nitroglycerin (Sl Tab) 0.4 Mg) 1 tab Q5M PRN SL CHEST PAIN; Start 04/10/16 at 19:00 Acetaminophen (Tylenol Tab) 650 mg Q6H PRN PO PAIN LEVEL 1-3 OR FEVER Last administered on 04/24/16at 18:03; Admin Dose 650 MG; Start 04/10/16 at 19:00 Acetaminophen/ Hydrocodone Bitart ([place] (5/325)) 1 tab Q6H PRN PO PAIN LEVEL 4 -6 Last administered on 04/14/16at 23:25; Admin Dose 1 TAB; Start 04/10/16 at 19: 00 Acetaminophen/ Hydrocodone Bitart ([place] (5/325)) 2 tab Q6H PRN PO PAIN LEVEL 7 -10 Last administered on 04/21/16at 04:30; Admin Dose 2 TAB; Start 04/10/16 at 19:00 Morphine Sulfate (morphine) 2 mg Q4H PRN IV PAIN LEVEL 7-10 Last administered on 04/20/16at 15:23; Admin Dose 2 MG; Start 04/10/16 at 19:00 Magnesium Hydroxide (Milk Of Mag) 30 ml DAILY PRN PO CONSTIPATION Last administered on 04/21/16at 05:00; Admin Dose 30 ML; Start 04/10/16 at 19:00 Bisacodyl (Dulcolax Supp) 10 mg DAILY PRN [place] CONSTIPATION; Start 04/10/16 at 19 :00 Pantoprazole (Protonix Tab) 40 mg DAILY@06 PO Last administered on 04/25/16at 06:02; Admin Dose 40 MG; Start 04/11/16 at 06:00 Miscellaneous Information 1 ea NOTE XX ; Start 04/10/16 at 19:00 Glucose (Glutose) 15 gm Q15M PRN PO DECREASED GLUCOSE; Start 04/10/16 at 19:00 Glucose (Glutose) 22.5 gm Q15M PRN PO DECREASED GLUCOSE; Start 04/10/16 at 19: 00 Dextrose (D50w Syringe) 25 ml Q15M PRN IV DECREASED GLUCOSE; Start 04/10/16 at 19:00 Dextrose (D50w Syringe) 50 ml Q15M PRN IV DECREASED GLUCOSE; Start 04/10/16 at 19:00 Glucagon (Glucagen) 1 mg Q15M PRN IM DECREASED GLUCOSE; Start 04/10/16 at 19:00 Glucose (Glutose) 15 gm Q15M PRN BUCCAL DECREASED GLUCOSE; Start 04/10/16 at 19 :00 Metoprolol Tartrate (Lopressor) 100 mg BID PO Last administered on 04/25/16 09:31; Admin Dose 100 MG; Start 04/11/16 at 09:00 Docusate Sodium (Colace) 100 mg Q12H PO Last administered on 04/25/16 06:02; Admin Dose 100 MG; Start 04/11/16 at 19:00 Polyethylene Glycol (Miralax) 17 gm DAILY PO Last administered on 04/25/16 09 :31; Admin Dose 17 GM; Start 04/11/16 at 13:00 Levofloxacin (Levaquin) 500 mg DAILY@06 PO Last administered on 04/25/16 06: 02; Admin Dose 500 MG; Start 04/15/16 at 14:00 Collagenase (Santyl) 1 applic DAILY TOP Last administered on 04/25/16 09:32; Admin Dose 1 APPLIC; Start 04/17/16 at 16:00 Allopurinol (Zyloprim) 300 mg DAILY PO Last administered on 04/25/16 09:31; Admin Dose 300 MG; Start 04/18/16 at 09:30 IV Flush 10 ml 10 ml PRN PRN IV IV PROTOCOL; Start 04/18/16 at 11:30 Sodium Chloride (NS) 1,000 ml @ 75 mls/hr [id number] IV Last administered on at 12:31; Admin Dose 75 MLS/HR; Start 04/18/16 at 12:30 Dexamethasone (Decadron) 10 mg Q4H PRN IV REACTION Last administered on 16:58; Admin Dose 10 MG; Start 04/18/16 at 13:00 Diphenhydramine HCl 25 mg 25 mg Q4H PRN IV ALLERGIC REACTION Last administered on 04/24/16 16:42; Admin Dose 25 MG; Start 04/18/16 at 13:00 Ondansetron HCl/ Sodium Chloride (Zofran Inj/NS) 54 ml @ 110 mls/hr Q8H PRN IV NAUSEA; Start 04/18/16 at 13:00 Amlodipine Besylate (Norvasc) 5 mg BID PO Last administered on 04/25/16at 09:32 ; Admin Dose 5 MG; Start 04/21/16 at 21:00 Lisinopril (Zestril) 20 mg BID PO Last administered on 04/25/16at 09:31; Admin Dose 20 MG; Start 04/21/16 at 21:00 Hydralazine HCl (Apresoline) 10 mg Q8H PRN IV ELEVATED BLOOD PRESSURE; Start 04/21/16 at 12:00 Insulin Glargine 50 unit 50 unit QHS SC Last administered on 04/24/16at 21:37; Admin Dose 50 UNIT; Start 04/23/16 at 21:00 Vancomycin HCl 1.25 gm/Sodium Chloride 250 ml @ 83.333 mls/ hr Q12H IVPB Last administered on 04/25/16at 06:02; Admin Dose 83.333 MLS/HR; Start 04/24/16 at 16:00 Filgrastim/ Dextrose (Neupogen/D5W) 51.6 ml @ 103.2 mls/ hr DAILY@17 IVPB ; Start 04/25/16 at 17:00 Assessment/Plan Chief Complaint/Hosp Course ANTIMICROBIALS: 1. Vancomycin 2. Levaquin. Indwellings: LUE PICC 04/18/16 PHYSICAL EXAMINATION: GENERAL: Obese, well-developed, middle-aged man who is awake, in no distress. HEENT: Head atraumatic, normocephalic. Sclerae anicteric. Buccal mucosa pink. NECK: Supple. Trachea midline. LUNGS: Chest rise symmetrical. Breath sounds clear, diminished at bases. HEART: S1, S2. ABDOMEN: Soft. Bowel tones present. EXTREMITIES: With right foot edema ASSESSMENT: 1. 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 2. Systemic inflammatory response syndrome with fever on admission, elevated ESR, significant thrombocytopenia and anemia. 3. Diabetes. 4. Hypertension. 5. Legally blind. 6. 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 Neutropenia PLAN: Clinically stable, continue abx, chemotherapy per oncology, f/u podiatry rec-s DW staff DW Dr Ruiz Problems: JUVENAL SANCHEZ NP Apr 25, 2016 13:17
[2016-04-25] MEDS: DEXTROSE 5% IVPB SCH (16:09)
[2016-04-25] MEDS: FILGRASTIM IVPB SCH (16:09)
[2016-04-25 20:00] VITALS: BP 126/74; PULSE 84; RESP 17
[2016-04-25] MEDS: INSULIN GLARGINE [LANtus] 3 ML PEN SC SCH ×2 (21:00→22:25)
--- NOTE | 2016-04-25 23:31 | PN ---
Date/Time of Note Date/Time of Note DATE: 04/25/16 TIME: 23:31 Assessment/Plan Lines/Catheters IV Catheter Type (from Nrsg): PICC Line Esquivel in Place (from Nrsg): No Assessment/Plan Problems: (1) Non-pressure chronic ulcer of other part of right foot with fat layer exposed Comment: Daily dressing changes to continue. Use dry dressing. Monitor for erythema, edema, drainage of pus, increase in pain. Will follow patient in house. (2) Diabetes, polyneuropathy Subjective 24 Hr Interval Summary Patient was seen and examined at bedside. Patient reports that is right second toe is improving. He states that yesterday he had his first chemotherapy. Patient denies pain in his right foot. Denies fever and chills. Constitutional: no complaints Pain Control: well controlled Exam/Review of Systems Vital Signs Vitals Vital Signs Date Time Temp Pulse Resp B/P Pulse Ox O2 Delivery O2 Flow Rate FiO2 04/25/16 20:00 98.4 84 17 126/74 93 Room Air Intake and Output 04/25/16 04/25/16 04/26/16 15:00 23:00 07:00 Intake Total 890 ml 1723.2 ml 350 ml Output Total 700 ml 2100 ml Balance 190 ml -376.8 ml 350 ml Exam Free Text/Dictation Patient is in no acute distress laying supine in bed. Right foot bandages were removed. The right second toe is missing skin on the medial, plantar and lateral aspects. There is 100% red granulation tissue with no pus and no bleeding. There is no tenderness to palpation and there is no erythema of the toe. Minimal edema of the toe noted. Bilaterally, patient has palpable pedal pulses with delayed CFT and normal TG. Protective sensation is decreased on both feet. Lab reviewed. Results Result Diagram: 04/26/16 0455 04/26/16 0455 IRENE CARVAJAL DPM Apr 25, 2016 23:31
[2016-04-26] MEDS: VANCOMYCIN 1.25 GM in SOD CHLORIDE 0.9% 250 ML IVPB SCH ×2 (04:54→16:44)
[2016-04-26] MEDS: SOD CHLORIDE 0.9% 1,000 ML IV SCH ×3 (04:54→23:50)
[2016-04-26 05:39] LABS: ALBUMIN 3.1 g/dl (3.3-4.9); POTASSIUM 3.7 mmol/L (3.5-5.1)
[2016-04-26 05:41] LABS: CREATININE 0.88 mg/dl (0.61-1.24)
[2016-04-26 05:42] LABS: ALBUMIN/GLOBULIN RATIO 0.7; BILIRUBIN,INDIRECT 0.4 mg/dl (0-1.1); BILIRUBIN,TOTAL 0.4 mg/dl (0.2-1.3); TOTAL PROTEIN 7.5 g/dl (6.1-8.1)
[2016-04-26 05:43] LABS: CALCIUM 8.3 mg/dl (8.4-10.2); HEMATOCRIT 25.8 % (42.0-52.0); HEMOGLOBIN 8.4 g/dl (14.0-18.0); MEAN CORPUSCULAR HEMOGLOBIN 29.6 pg (29.0-33.0); MEAN CORPUSCULAR HGB CONC 32.5 g/dl (32.0-37.0); MEAN PLATELET VOLUME 9.2 fl (7.4-10.4); RED BLOOD COUNT 2.84 10^6/ul (4.70-6.10); RED CELL DISTRIBUTION WIDTH 23.8 % (11.5-14.5); UNCORRECTED WBC 0.5 10^3/ul (4.8-10.8); WHITE BLOOD COUNT 0.5 10^3/ul (4.8-10.8)
[2016-04-26 05:47] LABS: CONDITION 1; LH ANALYZER COMMENTS 1; SUSPECT 1
[2016-04-26 05:49] LABS: PLATELET COUNT 24 10^3/UL (140-440)
[2016-04-26] MEDS: LEVOFLOXACIN 500 MG TAB PO SCH (06:26)
[2016-04-26] MEDS: PANTOPRAZOLE (EC) 40 MG TAB PO SCH (06:26)
[2016-04-26] MEDS: DOCUSATE SODIUM 100 MG CAP PO SCH ×2 (06:26→18:15)
[2016-04-26] MEDS: INSULIN ASPART [NOVOLOG] 3 ML PEN SC SCH ×6 (07:50→17:55)
[2016-04-26 08:00] VITALS: BP 133/73; PULSE 99; RESP 17
[2016-04-26] MEDS: POLYETHYLENE GLYCOL 17 GM PACKET PO SCH (09:00)
--- NOTE | 2016-04-26 09:32 | RADRPT ---
PROCEDURE: XR Chest. CLINICAL INDICATION: Fever. TECHNIQUE: Single frontal view of the chest was obtained. COMPARISON: 04/18/2016. FINDINGS: Cardiac silhouette remains mildly enlarged. Pulmonary vasculature appears normal. There is minimal residual left basilar infiltrate and/or atelectasis. Costophrenic angles are well defined. There is a left-sided PICC line unchanged from the prior study with the tip in the superior vena cava. Th ere is no evidence of a pneumothorax. IMPRESSION: 1. Interval improvement in cardiomegaly and a decrease in vascular congestion. 2. Minimal residual left basilar subsegmental atelectasis. RPTAT: [facility] Physician Ludy Date Time Electronically viewed and signed by Physician Ludy on 04/26/2016 09:32 /
[2016-04-26] MEDS: ACETAMINOPHEN 325 MG TAB PO PRN (09:36)
[2016-04-26] MEDS: LISINOPRIL 20 MG TAB PO SCH ×2 (09:36→20:44)
[2016-04-26] MEDS: METOPROLOL 100 MG TAB PO SCH ×2 (09:36→20:43)
[2016-04-26] MEDS: ALLOPURINOL 300 MG TAB PO SCH (09:36)
[2016-04-26] MEDS: AMLODIPINE 5 MG TAB PO SCH ×2 (09:36→20:43)
[2016-04-26] MEDS: COLLAGENASE 30 GM TUBE TOP SCH (09:37)
[2016-04-26 09:38] LABS: ADD UMIC YES; URINE BILIRUBIN (Dip) NEGATIVE (NEGATIVE); URINE BLOOD (Dip) TRACE (NEGATIVE); URINE COLOR LT. YELLOW (YELLOW); URINE GLUCOSE (Dip) NEGATIVE (NEGATIVE); URINE KETONES (Dip) NEGATIVE (NEGATIVE); URINE LEUKOCYTE ESTERASE (Dip) NEGATIVE (NEGATIVE); URINE NITRITE (Dip) NEGATIVE (NEGATIVE); URINE TOTAL PROTEIN (Dip) TRACE (NEGATIVE); URINE UROBILINOGEN (Dip) 4.0 E.U./dL (0.1-1.0)
[2016-04-26 10:03] LABS: URINE RBCS 0-2 /HPF (0)
[2016-04-26 10:04] LABS: MUCUS,URINE FEW
--- NOTE | 2016-04-26 11:46 | CONS ---
Date/Time of Note Date/Time of Note DATE: 04/26/16 TIME: 11:43 Consult Date/Type/Reason Admit Date/Time Apr 10, 2016 at 16:55 Initial Consult Date 04/11/16 Type of Consultation: ID Ordering Provider: LAUREL ANDERSON Subjective s/p fever in am, cx's done, alert, feels good, afebrile, no n/v/d, no dysuria Objective Vital Signs Date Time Temp Pulse Resp B/P Pulse Ox O2 Delivery O2 Flow Rate FiO2 04/26/16 08:00 102.5 99 17 133/73 99 04/25/16 20:00 Room Air Intake and Output 04/25/16 04/25/16 04/26/16 15:00 23:00 07:00 Intake Total 890 ml 1723.2 ml 350 ml Output Total 700 ml 2100 ml Balance 190 ml -376.8 ml 350 ml Results/Medications Result Diagram: 04/26/16 0455 04/26/16 0455 Results 24 hrs Laboratory Tests Test 04/25/16 11:53 04/25/16 16:52 04/25/16 22:21 04/26/16 04:55 Bedside Glucose 277 H 289 H 330 H Alanine Aminotransferase (ALT/SGPT) 71 H Albumin 3.1 L Albumin/Globulin Ratio 0.70 Alkaline Phosphatase 210 H Anion Gap 14 Aspartate Amino Transf (AST/SGOT) 29 # Basophils # Basophils % Blood Morphology Comment Blood Urea Nitrogen 21 H Calcium Level 8.3 L Carbon Dioxide Level 27 Chloride Level 101 Creatinine 0.88 Direct Bilirubin 0.00 Eosinophils # Eosinophils % Globulin 4.40 H Glucose Level 202 Hematocrit 25.8 L Hemoglobin 8.4 L Indirect Bilirubin 0.4 Lymphocytes # Magnesium Level 1.7 Mean Corpuscular Hemoglobin 29.6 Mean Corpuscular Hemoglobin Concent 32.5 Mean Corpuscular Volume 91.0 Mean Platelet Volume 9.2 Monocytes # Monocytes % Neutrophils # Neutrophils % Platelet Count 24 *L Potassium Level 3.7 Red Blood Count 2.84 L Red Cell Distribution Width 23.8 H Sodium Level 138 Total Bilirubin 0.4 Total Protein 7.5 Vancomycin Level Trough 12.1 White Blood Count 0.5 L Test 04/26/16 08:22 04/26/16 08:45 04/26/16 11:31 Bedside Glucose 126 153 Urine Amorphous Urates FEW Urine Bilirubin NEGATIVE Urine Clarity CLEAR Urine Color LT. YELLOW Urine Glucose NEGATIVE Urine Hemoglobin TRACE Urine Ketones NEGATIVE Urine Leukocyte Esterase NEGATIVE Urine Microscopic RBC 0-2 Urine Microscopic WBC NONE SEEN Urine Mucus FEW Urine Nitrite NEGATIVE Urine Specific [place] 1.020 Urine Total Protein TRACE Urine Urobilinogen 4.0 E.U./dL H Urine pH 5.5 Medications Current Medications Ondansetron HCl (Zofran Inj) 4 mg Q6H PRN IV NAUSEA AND/OR VOMITING; Start 04/10/16 at 19:00 Nitroglycerin (Nitroglycerin (Sl Tab) 0.4 Mg) 1 tab Q5M PRN SL CHEST PAIN; Start 04/10/16 at 19:00 Acetaminophen (Tylenol Tab) 650 mg Q6H PRN PO PAIN LEVEL 1-3 OR FEVER Last administered on 04/26/16at 09:36; Admin Dose 650 MG; Start 04/10/16 at 19:00 Acetaminophen/ Hydrocodone Bitart ([place] (5/325)) 1 tab Q6H PRN PO PAIN LEVEL 4 -6 Last administered on 04/14/16at 23:25; Admin Dose 1 TAB; Start 04/10/16 at 19: 00 Acetaminophen/ Hydrocodone Bitart ([place] (5/325)) 2 tab Q6H PRN PO PAIN LEVEL 7 -10 Last administered on 04/21/16at 04:30; Admin Dose 2 TAB; Start 04/10/16 at 19:00 Morphine Sulfate (morphine) 2 mg Q4H PRN IV PAIN LEVEL 7-10 Last administered on 04/20/16at 15:23; Admin Dose 2 MG; Start 04/10/16 at 19:00 Magnesium Hydroxide (Milk Of Mag) 30 ml DAILY PRN PO CONSTIPATION Last administered on 04/21/16at 05:00; Admin Dose 30 ML; Start 04/10/16 at 19:00 Bisacodyl (Dulcolax Supp) 10 mg DAILY PRN [place] CONSTIPATION; Start 04/10/16 at 19 :00 Pantoprazole (Protonix Tab) 40 mg DAILY@06 PO Last administered on 04/26/16at 06:26; Admin Dose 40 MG; Start 04/11/16 at 06:00 Miscellaneous Information 1 ea NOTE XX ; Start 04/10/16 at 19:00 Glucose (Glutose) 15 gm Q15M PRN PO DECREASED GLUCOSE; Start 04/10/16 at 19:00 Glucose (Glutose) 22.5 gm Q15M PRN PO DECREASED GLUCOSE; Start 04/10/16 at 19: 00 Dextrose (D50w Syringe) 25 ml Q15M PRN IV DECREASED GLUCOSE; Start 04/10/16 at 19:00 Dextrose (D50w Syringe) 50 ml Q15M PRN IV DECREASED GLUCOSE; Start 04/10/16 at 19:00 Glucagon (Glucagen) 1 mg Q15M PRN IM DECREASED GLUCOSE; Start 04/10/16 at 19:00 Glucose (Glutose) 15 gm Q15M PRN BUCCAL DECREASED GLUCOSE; Start 04/10/16 at 19 :00 Metoprolol Tartrate (Lopressor) 100 mg BID PO Last administered on 04/26/16at 09:36; Admin Dose 100 MG; Start 04/11/16 at 09:00 Docusate Sodium (Colace) 100 mg Q12H PO Last administered on 04/26/16at 06:26; Admin Dose 100 MG; Start 04/11/16 at 19:00 Polyethylene Glycol (Miralax) 17 gm DAILY PO Last administered on 04/24/16at 08 :23; Admin Dose 17 GM; Start 04/11/16 at 13:00 Levofloxacin (Levaquin) 500 mg DAILY@06 PO Last administered on 04/26/16at 06: 26; Admin Dose 500 MG; Start 04/15/16 at 14:00 Collagenase (Santyl) 1 applic DAILY TOP Last administered on 04/26/16at 09:37; Admin Dose 1 APPLIC; Start 04/17/16 at 16:00 Allopurinol (Zyloprim) 300 mg DAILY PO Last administered on 04/26/16at 09:36; Admin Dose 300 MG; Start 04/18/16 at 09:30 IV Flush 10 ml 10 ml PRN PRN IV IV PROTOCOL; Start 04/18/16 at 11:30 Sodium Chloride (NS) 1,000 ml @ 75 mls/hr [id number] IV Last administered on at 04:54; Admin Dose 75 MLS/HR; Start 04/18/16 at 12:30 Dexamethasone (Decadron) 10 mg Q4H PRN IV REACTION Last administered on at 16:58; Admin Dose 10 MG; Start 04/18/16 at 13:00 Diphenhydramine HCl 25 mg 25 mg Q4H PRN IV ALLERGIC REACTION Last administered on 04/24/16at 16:42; Admin Dose 25 MG; Start 04/18/16 at 13:00 Ondansetron HCl/ Sodium Chloride (Zofran Inj/NS) 54 ml @ 110 mls/hr Q8H PRN IV NAUSEA; Start 04/18/16 at 13:00 Amlodipine Besylate (Norvasc) 5 mg BID PO Last administered on 04/26/16at 09:36 ; Admin Dose 5 MG; Start 04/21/16 at 21:00 Lisinopril (Zestril) 20 mg BID PO Last administered on 04/26/16at 09:36; Admin Dose 20 MG; Start 04/21/16 at 21:00 Hydralazine HCl (Apresoline) 10 mg Q8H PRN IV ELEVATED BLOOD PRESSURE; Start 04/21/16 at 12:00 Insulin Glargine 50 unit 50 unit QHS SC Last administered on 04/25/16at 22:25; Admin Dose 50 UNIT; Start 04/23/16 at 21:00 Vancomycin HCl 1.25 gm/Sodium Chloride 250 ml @ 83.333 mls/ hr Q12H IVPB Last administered on 04/26/16at 04:54; Admin Dose 83.333 MLS/HR; Start 04/24/16 at 16:00 Filgrastim/ Dextrose (Neupogen/D5W) 51.6 ml @ 103.2 mls/ hr DAILY@17 IVPB Last administered on 04/25/16at 16:09; Admin Dose 103.2 MLS/HR; Start 04/25/16 at 17:00 Assessment/Plan Chief Complaint/Hosp Course ANTIMICROBIALS: 1. Vancomycin 2. Levaquin. Indwellings: LUE PICC 04/18/16 PHYSICAL EXAMINATION: GENERAL: Obese, well-developed, middle-aged man who is awake, in no distress. HEENT: Head atraumatic, normocephalic. Sclerae anicteric. Buccal mucosa pink. NECK: Supple. Trachea midline. LUNGS: Chest rise symmetrical. Breath sounds clear, diminished at bases. HEART: S1, S2. ABDOMEN: Soft. Bowel tones present. EXTREMITIES: With right foot edema ASSESSMENT: 1. Neutropenic fever==> r/o infection, s/p jimenez cx this am 2. 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 4. Diabetes. 5. Hypertension. 6. Legally blind. PLAN: Clinically stable, will add empiric Acyclovir and Diflucan, f/u cx's, continue abx, chemotherapy per oncology, f/u podiatry rec-s DW staff Problems: JUVENAL SANCHEZ NP Apr 26, 2016 11:45
[2016-04-26] MEDS ORDERED: FLUCONAZOLE 100 MG TAB PO ONE (12:00)
[2016-04-26 12:26] LABS: ANISOCYTOSIS 1+; LYMPHOCYTES # 0.1 10^3/ul (0.8-2.9); NEUTROPHIL # 0.4 10^3/ul (1.6-7.5)
[2016-04-26 12:27] LABS: PLATELET ESTIMATE PLT APPEAR DECREASED
--- NOTE | 2016-04-26 12:34 | CONS ---
Date/Time of Note Date/Time of Note DATE: 04/26/16 TIME: 12:27 Assessment/Plan Assessment/Plan Chief Complaint/Hosp Course 55-year-old gentleman with multiple medical problems including insulin dependant DM (not compliant), legal blindness at least for the past 6 months, hypertension, cardiomegaly with a chronic rt first and second toe infection, who initially presented with Left sided chest pain. Initial labs also revealed pancytopenia with a Hg 6.7 and platelets in 30's. 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 He has since spiked a fever to 103 and still has low grade fevers. Neupogen was started yesterday. Problems: Additional Assessment/Plan -Pt is now s/p 5 days of cladribine 0.14mg/kg/day continues IV infusion x 5 days + Rituxan. -continue antibiotics per ID -neutropenia related to cladribine, continue to monitor. -continue broad spectrum antibiotics for neutropenic fevers -f/u cultures -continue Neupogen Approximately 40 min were spent at patient's bedside and in coordination of his care Consultation Date/Type/Reason Admit Date/Time Apr 10, 2016 at 16:55 Initial Consult Date 04/11/16 Type of Consultation: hematology Reason for Consultation Hairy Cell Leukemia Referring Provider: LAUREL ANDERSON 24 HR Interval Summary Free Text/Dictation pt spiked a fever yesterday to 103. pt has been pancultured. still with low grade fevers Exam/Review of Systems Vital Signs Vitals Vital Signs Date Time Temp Pulse Resp B/P Pulse Ox O2 Delivery O2 Flow Rate FiO2 04/26/16 11:00 100.0 04/26/16 08:00 99 17 133/73 99 04/25/16 20:00 Room Air Intake and Output 04/25/16 04/25/16 04/26/16 15:00 23:00 07:00 Intake Total 890 ml 1723.2 ml 350 ml Output Total 700 ml 2100 ml Balance 190 ml -376.8 ml 350 ml Exam Constitutional: alert, oriented Psych: no complaints Head: atraumatic, normocephalic Eyes: nl conjunctiva ENMT: nl external ears & nose, nl lips & teeth Neck: non-tender, supple Respiratory: clear to auscultation, normal air movement Cardiovascular: regular rate and rhythm Gastrointestinal: nl liver, spleen, soft Genitourinary - Male: nl penis Extremities: normal pulses Results Result Diagram: 04/26/16 0455 04/26/16 0455 Results 24 hrs Laboratory Tests Test 04/25/16 16:52 04/25/16 22:21 04/26/16 04:55 04/26/16 08:22 Bedside Glucose 289 H 330 H 126 Alanine Aminotransferase (ALT/SGPT) 71 H Albumin 3.1 L Albumin/Globulin Ratio 0.70 Alkaline Phosphatase 210 H Anion Gap 14 Aspartate Amino Transf (AST/SGOT) 29 # Basophils # Basophils % Blood Morphology Comment Blood Urea Nitrogen 21 H Calcium Level 8.3 L Carbon Dioxide Level 27 Chloride Level 101 Creatinine 0.88 Differential Comment MANUAL DIFF Direct Bilirubin 0.00 Eosinophils # Eosinophils % Globulin 4.40 H Glucose Level 202 Hematocrit 25.8 L Hemoglobin 8.4 L Indirect Bilirubin 0.4 Lymphocytes # Magnesium Level 1.7 Mean Corpuscular Hemoglobin 29.6 Mean Corpuscular Hemoglobin Concent 32.5 Mean Corpuscular Volume 91.0 Mean Platelet Volume 9.2 Monocytes # Monocytes % Neutrophils # Neutrophils % Platelet Count 24 *L Potassium Level 3.7 Red Blood Count 2.84 L Red Cell Distribution Width 23.8 H Sodium Level 138 Total Bilirubin 0.4 Total Protein 7.5 Vancomycin Level Trough 12.1 White Blood Count 0.5 L Test 04/26/16 08:45 04/26/16 11:31 Urine Amorphous Urates FEW Urine Bilirubin NEGATIVE Urine Clarity CLEAR Urine Color LT. YELLOW Urine Glucose NEGATIVE Urine Hemoglobin TRACE Urine Ketones NEGATIVE Urine Leukocyte Esterase NEGATIVE Urine Microscopic RBC 0-2 Urine Microscopic WBC NONE SEEN Urine Mucus FEW Urine Nitrite NEGATIVE Urine Specific [place] 1.020 Urine Total Protein TRACE Urine Urobilinogen 4.0 E.U./dL H Urine pH 5.5 Bedside Glucose 153 Medications Medications Current Medications Ondansetron HCl (Zofran Inj) 4 mg Q6H PRN IV NAUSEA AND/OR VOMITING; Start 04/10/16 at 19:00 Nitroglycerin (Nitroglycerin (Sl Tab) 0.4 Mg) 1 tab Q5M PRN SL CHEST PAIN; Start 04/10/16 at 19:00 Acetaminophen (Tylenol Tab) 650 mg Q6H PRN PO PAIN LEVEL 1-3 OR FEVER Last administered on 04/26/16at 09:36; Admin Dose 650 MG; Start 04/10/16 at 19:00 Acetaminophen/ Hydrocodone Bitart ([place] (5/325)) 1 tab Q6H PRN PO PAIN LEVEL 4 -6 Last administered on 04/14/16at 23:25; Admin Dose 1 TAB; Start 04/10/16 at 19: 00 Acetaminophen/ Hydrocodone Bitart ([place] (5/325)) 2 tab Q6H PRN PO PAIN LEVEL 7 -10 Last administered on 04/21/16at 04:30; Admin Dose 2 TAB; Start 04/10/16 at 19:00 Morphine Sulfate (morphine) 2 mg Q4H PRN IV PAIN LEVEL 7-10 Last administered on 04/20/16at 15:23; Admin Dose 2 MG; Start 04/10/16 at 19:00 Magnesium Hydroxide (Milk Of Mag) 30 ml DAILY PRN PO CONSTIPATION Last administered on 04/21/16at 05:00; Admin Dose 30 ML; Start 04/10/16 at 19:00 Bisacodyl (Dulcolax Supp) 10 mg DAILY PRN [place] CONSTIPATION; Start 04/10/16 at 19 :00 Pantoprazole (Protonix Tab) 40 mg DAILY@06 PO Last administered on 04/26/16at 06:26; Admin Dose 40 MG; Start 04/11/16 at 06:00 Miscellaneous Information 1 ea NOTE XX ; Start 04/10/16 at 19:00 Glucose (Glutose) 15 gm Q15M PRN PO DECREASED GLUCOSE; Start 04/10/16 at 19:00 Glucose (Glutose) 22.5 gm Q15M PRN PO DECREASED GLUCOSE; Start 04/10/16 at 19: 00 Dextrose (D50w Syringe) 25 ml Q15M PRN IV DECREASED GLUCOSE; Start 04/10/16 at 19:00 Dextrose (D50w Syringe) 50 ml Q15M PRN IV DECREASED GLUCOSE; Start 04/10/16 at 19:00 Glucagon (Glucagen) 1 mg Q15M PRN IM DECREASED GLUCOSE; Start 04/10/16 at 19:00 Glucose (Glutose) 15 gm Q15M PRN BUCCAL DECREASED GLUCOSE; Start 04/10/16 at 19 :00 Metoprolol Tartrate (Lopressor) 100 mg BID PO Last administered on 04/26/16at 09:36; Admin Dose 100 MG; Start 04/11/16 at 09:00 Docusate Sodium (Colace) 100 mg Q12H PO Last administered on 04/26/16 06:26; Admin Dose 100 MG; Start 04/11/16 at 19:00 Polyethylene Glycol (Miralax) 17 gm DAILY PO Last administered on 04/24/16at 08 :23; Admin Dose 17 GM; Start 04/11/16 at 13:00 Levofloxacin (Levaquin) 500 mg DAILY@06 PO Last administered on 04/26/16 06: 26; Admin Dose 500 MG; Start 04/15/16 at 14:00 Collagenase (Santyl) 1 applic DAILY TOP Last administered on 04/26/16 09:37; Admin Dose 1 APPLIC; Start 04/17/16 at 16:00 Allopurinol (Zyloprim) 300 mg DAILY PO Last administered on 04/26/16 09:36; Admin Dose 300 MG; Start 04/18/16 at 09:30 IV Flush 10 ml 10 ml PRN PRN IV IV PROTOCOL; Start 04/18/16 at 11:30 Sodium Chloride (NS) 1,000 ml @ 75 mls/hr [id number] IV Last administered on 04:54; Admin Dose 75 MLS/HR; Start 04/18/16 at 12:30 Dexamethasone (Decadron) 10 mg Q4H PRN IV REACTION Last administered on 16:58; Admin Dose 10 MG; Start 04/18/16 at 13:00 Diphenhydramine HCl 25 mg 25 mg Q4H PRN IV ALLERGIC REACTION Last administered on 04/24/16at 16:42; Admin Dose 25 MG; Start 04/18/16 at 13:00 Ondansetron HCl/ Sodium Chloride (Zofran Inj/NS) 54 ml @ 110 mls/hr Q8H PRN IV NAUSEA; Start 04/18/16 at 13:00 Amlodipine Besylate (Norvasc) 5 mg BID PO Last administered on 04/26/16 09:36 ; Admin Dose 5 MG; Start 04/21/16 at 21:00 Lisinopril (Zestril) 20 mg BID PO Last administered on 04/26/16 09:36; Admin Dose 20 MG; Start 04/21/16 at 21:00 Hydralazine HCl (Apresoline) 10 mg Q8H PRN IV ELEVATED BLOOD PRESSURE; Start 04/21/16 at 12:00 Insulin Glargine 50 unit 50 unit QHS SC Last administered on 04/25/16at 22:25; Admin Dose 50 UNIT; Start 04/23/16 at 21:00 Vancomycin HCl 1.25 gm/Sodium Chloride 250 ml @ 83.333 mls/ hr Q12H IVPB Last administered on 04/26/16at 04:54; Admin Dose 83.333 MLS/HR; Start 04/24/16 at 16:00 Filgrastim/ Dextrose (Neupogen/D5W) 51.6 ml @ 103.2 mls/ hr DAILY@17 IVPB Last administered on 04/25/16at 16:09; Admin Dose 103.2 MLS/HR; Start 04/25/16 at 17:00 Fluconazole (Diflucan) 100 mg DAILY PO ; Start 04/27/16 at 09:00 Acyclovir (Zovirax) 400 mg BID PO ; Start 04/26/16 at 11:45 TOY DWYER M.D. Apr 26, 2016 12:34
[2016-04-26] MEDS: ACYCLOVIR 400 MG TAB PO SCH ×2 (12:42→20:44)
--- NOTE | 2016-04-26 16:00 | PN ---
Date/Time of Note Date/Time of Note DATE: 04/26/16 TIME: 15:49 Assessment/Plan VTE Prophylaxis VTE Prophylaxis Intervention: SCD's Lines/Catheters IV Catheter Type (from Nrsg): PICC Line Central line still needed: Yes (for Chemo ) Urinary Cath still in place: No Assessment/Plan Assessment/Plan 55-year-old male with: 1. Hairy cell Leukemia. patient admitted with anemia, acute on chronic, pancytopenia, primarily thrombocytopenic. HIV negative. Now Neutropenic and fever today Appreciate Hematology's assistance and ID recs Neupogen given per Heme, abx adjusted per ID, patient now also on acyclovir Hopefully count recovery soon Dr Flannery following. 2. Right 1st and 2nd toe. ESR elevated. Fever overnight in setting of neutropenia. MRI foot with osteomyelitis and JOSE J negative Blood cultures NGTD and wound cultures NGTD Wound care and Dr Thomas following patient. Pancultured and CXR stable Now on Vanco, Levaquin, Diflucan and Acyclovir 3. Diabetes mellitus. A1c back at 7.2 ...Continue current insulin regimen, keeping off glyburide. On Tradjenta. Increased Lantus to 50 and premeal insulin to 12 Appreciate school vocational educator recommendations. Patient really needs to be compliant with ADA diet. BG currently up due to non compliance even inpatient stills get food from family members visiting ... 4. Cardiomegaly, EF 50%. No further episodes of NSVT since yesterday. Continue Lopressor/Bblock Electrolytes stable again today. S/p negative JOSE J 5. Hypertension. Continue beta blockers, Norvasc and Lisinopril. Also on hydralazine prn. 6. Constipation, relieved: continue Miralax and Colace scheduled and add MOM along with Dulcolax prn. 7. 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 now on acyclovir so d/c Valacyclovir ...Will need Ophthalmology eval outpatient either way if not done prior Patient blind Prophylaxis. Proton pump inhibitors for GI prophylaxis and SCDs for DVT prophylaxis. DISPOSITION: Post Chemo. F/u wound care and follow up further ID and Podiatry recs. Will likely require SNF vs Home health RN visits at discharge. Subjective 24 Hr Interval Summary Free Text/Dictation Patient with episode of Fever to 102 this AM Appreciate ID and Hematology recommendations today Afebrile now and remains hemodynamically stable Exam/Review of Systems Vital Signs Vitals Vital Signs Date Time Temp Pulse Resp B/P Pulse Ox O2 Delivery O2 Flow Rate FiO2 04/26/16 14:27 99.5 04/26/16 08:00 99 17 133/73 99 04/25/16 20:00 Room Air Intake and Output 04/25/16 04/25/16 04/26/16 15:00 23:00 07:00 Intake Total 890 ml 1723.2 ml 350 ml Output Total 700 ml 2100 ml Balance 190 ml -376.8 ml 350 ml Exam Constitutional: alert, oriented, other (blind), well developed Respiratory: clear to auscultation, normal air movement Cardiovascular: nl pulses, regular rate and rhythm Gastrointestinal: non-tender, soft Musculoskeletal: other (right 1 and 2nd toes with dressing ) Extremities: normal pulses, other (no edema, clubbing oer cyanosis ) 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: SENIOR STACK ENGINEER II-XII intact, nl mental status, nl speech, nl strength Skin: nl turgor, other (improving rash ) Results Result Diagram: 04/26/16 0455 04/26/16 0455 Results 24 hrs Laboratory Tests Test 04/25/16 16:52 04/25/16 22:21 04/26/16 04:55 04/26/16 08:22 Bedside Glucose 289 H 330 H 126 Alanine Aminotransferase (ALT/SGPT) 71 H Albumin 3.1 L Albumin/Globulin Ratio 0.70 Alkaline Phosphatase 210 H Anion Gap 14 Anisocytosis 1+ Aspartate Amino Transf (AST/SGOT) 29 # Band Neutrophils % 5.0 Basophils # Basophils % Blood Morphology Comment Blood Urea Nitrogen 21 H Calcium Level 8.3 L Carbon Dioxide Level 27 Chloride Level 101 Creatinine 0.88 Differential Comment Direct Bilirubin 0.00 Eosinophils # Eosinophils % Globulin 4.40 H Glucose Level 202 Hematocrit 25.8 L Hemoglobin 8.4 L Indirect Bilirubin 0.4 Lymphocytes # 0.1 L Lymphocytes % 18.0 Magnesium Level 1.7 Mean Corpuscular Hemoglobin 29.6 Mean Corpuscular Hemoglobin Concent 32.5 Mean Corpuscular Volume 91.0 Mean Platelet Volume 9.2 Monocytes # 0.0 L Monocytes % 4.0 Neutrophils # 0.4 L Neutrophils % 73.0 Nucleated Red Blood Cells % 3.0 H Platelet Count 24 *L Platelet Estimate PLT APPEAR DECREASED Potassium Level 3.7 Red Blood Count 2.84 L Red Cell Distribution Width 23.8 H Sodium Level 138 Total Bilirubin 0.4 Total Protein 7.5 Vancomycin Level Trough 12.1 White Blood Count 0.5 L Test 04/26/16 08:45 04/26/16 11:31 Urine Amorphous Urates FEW Urine Bilirubin NEGATIVE Urine Clarity CLEAR Urine Color LT. YELLOW Urine Glucose NEGATIVE Urine Hemoglobin TRACE Urine Ketones NEGATIVE Urine Leukocyte Esterase NEGATIVE Urine Microscopic RBC 0-2 Urine Microscopic WBC NONE SEEN Urine Mucus FEW Urine Nitrite NEGATIVE Urine Specific Burke 1.020 Urine Total Protein TRACE Urine Urobilinogen 4.0 E.U./dL H Urine pH 5.5 Bedside Glucose 153 Medications Medications Current Medications Ondansetron HCl (Zofran Inj) 4 mg Q6H PRN IV NAUSEA AND/OR VOMITING; Start 04/10/16 at 19:00 Nitroglycerin (Nitroglycerin (Sl Tab) 0.4 Mg) 1 tab Q5M PRN SL CHEST PAIN; Start 04/10/16 at 19:00 Acetaminophen (Tylenol Tab) 650 mg Q6H PRN PO PAIN LEVEL 1-3 OR FEVER Last administered on 04/26/16at 09:36; Admin Dose 650 MG; Start 04/10/16 at 19:00 Acetaminophen/ Hydrocodone Bitart ([place] (5/325)) 1 tab Q6H PRN PO PAIN LEVEL 4 -6 Last administered on 04/14/16at 23:25; Admin Dose 1 TAB; Start 04/10/16 at 19: 00 Acetaminophen/ Hydrocodone Bitart ([place] (5/325)) 2 tab Q6H PRN PO PAIN LEVEL 7 -10 Last administered on 04/21/16at 04:30; Admin Dose 2 TAB; Start 04/10/16 at 19:00 Morphine Sulfate (morphine) 2 mg Q4H PRN IV PAIN LEVEL 7-10 Last administered on 04/20/16at 15:23; Admin Dose 2 MG; Start 04/10/16 at 19:00 Magnesium Hydroxide (Milk Of Mag) 30 ml DAILY PRN PO CONSTIPATION Last administered on 04/21/16at 05:00; Admin Dose 30 ML; Start 04/10/16 at 19:00 Bisacodyl (Dulcolax Supp) 10 mg DAILY PRN [place] CONSTIPATION; Start 04/10/16 at 19 :00 Pantoprazole (Protonix Tab) 40 mg DAILY@06 PO Last administered on 04/26/16at 06:26; Admin Dose 40 MG; Start 04/11/16 at 06:00 Miscellaneous Information 1 ea NOTE XX ; Start 04/10/16 at 19:00 Glucose (Glutose) 15 gm Q15M PRN PO DECREASED GLUCOSE; Start 04/10/16 at 19:00 Glucose (Glutose) 22.5 gm Q15M PRN PO DECREASED GLUCOSE; Start 04/10/16 at 19: 00 Dextrose (D50w Syringe) 25 ml Q15M PRN IV DECREASED GLUCOSE; Start 04/10/16 at 19:00 Dextrose (D50w Syringe) 50 ml Q15M PRN IV DECREASED GLUCOSE; Start 04/10/16 at 19:00 Glucagon (Glucagen) 1 mg Q15M PRN IM DECREASED GLUCOSE; Start 04/10/16 at 19:00 Glucose (Glutose) 15 gm Q15M PRN BUCCAL DECREASED GLUCOSE; Start 04/10/16 at 19 :00 Metoprolol Tartrate (Lopressor) 100 mg BID PO Last administered on 04/26/16at 09:36; Admin Dose 100 MG; Start 04/11/16 at 09:00 Docusate Sodium (Colace) 100 mg Q12H PO Last administered on 04/26/16at 06:26; Admin Dose 100 MG; Start 04/11/16 at 19:00 Polyethylene Glycol (Miralax) 17 gm DAILY PO Last administered on 04/24/16at 08 :23; Admin Dose 17 GM; Start 04/11/16 at 13:00 Levofloxacin (Levaquin) 500 mg DAILY@06 PO Last administered on 04/26/16at 06: 26; Admin Dose 500 MG; Start 04/15/16 at 14:00 Collagenase (Santyl) 1 applic DAILY TOP Last administered on 04/26/16at 09:37; Admin Dose 1 APPLIC; Start 04/17/16 at 16:00 Allopurinol (Zyloprim) 300 mg DAILY PO Last administered on 04/26/16at 09:36; Admin Dose 300 MG; Start 04/18/16 at 09:30 IV Flush 10 ml 10 ml PRN PRN IV IV PROTOCOL; Start 04/18/16 at 11:30 Sodium Chloride (NS) 1,000 ml @ 75 mls/hr [id number] IV Last administered on at 04:54; Admin Dose 75 MLS/HR; Start 04/18/16 at 12:30 Dexamethasone (Decadron) 10 mg Q4H PRN IV REACTION Last administered on at 16:58; Admin Dose 10 MG; Start 04/18/16 at 13:00 Diphenhydramine HCl 25 mg 25 mg Q4H PRN IV ALLERGIC REACTION Last administered on 04/24/16at 16:42; Admin Dose 25 MG; Start 04/18/16 at 13:00 Ondansetron HCl/ Sodium Chloride (Zofran Inj/NS) 54 ml @ 110 mls/hr Q8H PRN IV NAUSEA; Start 04/18/16 at 13:00 Amlodipine Besylate (Norvasc) 5 mg BID PO Last administered on 04/26/16at 09:36 ; Admin Dose 5 MG; Start 04/21/16 at 21:00 Lisinopril (Zestril) 20 mg BID PO Last administered on 04/26/16at 09:36; Admin Dose 20 MG; Start 04/21/16 at 21:00 Hydralazine HCl (Apresoline) 10 mg Q8H PRN IV ELEVATED BLOOD PRESSURE; Start 04/21/16 at 12:00 Insulin Glargine 50 unit 50 unit QHS SC Last administered on 04/25/16at 22:25; Admin Dose 50 UNIT; Start 04/23/16 at 21:00 Vancomycin HCl 1.25 gm/Sodium Chloride 250 ml @ 83.333 mls/ hr Q12H IVPB Last administered on 04/26/16at 04:54; Admin Dose 83.333 MLS/HR; Start 04/24/16 at 16:00 Filgrastim/ Dextrose (Neupogen/D5W) 51.6 ml @ 103.2 mls/ hr DAILY@17 IVPB Last administered on 04/25/16at 16:09; Admin Dose 103.2 MLS/HR; Start 04/25/16 at 17:00 Fluconazole (Diflucan) 100 mg DAILY PO ; Start 04/27/16 at 09:00 Acyclovir (Zovirax) 400 mg BID PO Last administered on 12/21/16at 12:42; Admin Dose 400 MG; Start 04/26/16 at 11:45 Miscellaneous Information (*Rx Drug Level Order Reminder*) VANCO TR LEVEL PRIOR... ONCE ONCE XX ; Start 04/27/16 at 15:00; Stop 04/27/16 at 15:01 Procedures Procedures PROCEDURE: XR Chest. CLINICAL INDICATION: Fever. TECHNIQUE: Single frontal view of the chest was obtained. COMPARISON: 04/18/2016. FINDINGS: Cardiac silhouette remains mildly enlarged. Pulmonary vasculature appears normal. There is minimal residual left basilar infiltrate and/or atelectasis. Costophrenic angles are well defined. There is a left-sided PICC line unchanged from the prior study with the tip in the superior vena cava. There is no evidence of a pneumothorax. IMPRESSION: 1. Interval improvement in cardiomegaly and a decrease in vascular congestion. 2. Minimal residual left basilar subsegmental atelectasis. LAUREL ANDERSON Apr 26, 2016 15:59
[2016-04-26] MEDS: FILGRASTIM IVPB SCH (18:46)
[2016-04-26] MEDS: DEXTROSE 5% IVPB SCH (18:46)
[2016-04-26 20:20] VITALS: BP 117/64; PULSE 93; RESP 18
[2016-04-26] MEDS: INSULIN GLARGINE [LANtus] 3 ML PEN SC SCH (20:57)
[2016-04-27] MEDS: HYDROCODONE/APAP (5/325) TAB PO PRN ×2 (04:25→16:34)
[2016-04-27] MEDS: VANCOMYCIN 1.25 GM in SOD CHLORIDE 0.9% 250 ML IVPB SCH ×2 (04:29→16:34)
[2016-04-27] MEDS: morphine 2 MG INJ IV PRN (04:30)
[2016-04-27] MEDS: LEVOFLOXACIN 500 MG TAB PO SCH (05:24)
[2016-04-27] MEDS: DOCUSATE SODIUM 100 MG CAP PO SCH ×2 (05:25→19:00)
[2016-04-27] MEDS: PANTOPRAZOLE (EC) 40 MG TAB PO SCH (05:25)
[2016-04-27 05:51] LABS: ALBUMIN 2.8 g/dl (3.3-4.9)
[2016-04-27 05:52] LABS: POTASSIUM 3.2 mmol/L (3.5-5.1)
[2016-04-27 05:54] LABS: ALBUMIN/GLOBULIN RATIO 0.66; BILIRUBIN,DIRECT 0.7 mg/dl (0.00-0.20); BILIRUBIN,TOTAL 1.7 mg/dl (0.2-1.3); CALCIUM 7.9 mg/dl (8.4-10.2); CREATININE 0.95 mg/dl (0.61-1.24)
[2016-04-27 06:29] LABS: HEMATOCRIT 23.6 % (42.0-52.0); MEAN CORPUSCULAR HEMOGLOBIN 30.4 pg (29.0-33.0); MEAN CORPUSCULAR HGB CONC 33.8 g/dl (32.0-37.0); MEAN CORPUSCULAR VOLUME 90.1 fl (82.0-101.0); MEAN PLATELET VOLUME 9.3 fl (7.4-10.4); RED BLOOD COUNT 2.62 10^6/ul (4.70-6.10); RED CELL DISTRIBUTION WIDTH 23.8 % (11.5-14.5); UNCORRECTED WBC 0.6 10^3/ul (4.8-10.8); WHITE BLOOD COUNT 0.6 10^3/ul (4.8-10.8)
[2016-04-27 06:41] LABS: CONDITION 1; LH ANALYZER COMMENTS 1; SUSPECT 1
[2016-04-27 06:42] LABS: PLATELET COUNT 22 10^3/UL (140-440)
[2016-04-27] MEDS: INSULIN ASPART [NOVOLOG] 3 ML PEN SC SCH ×6 (07:50→17:50)
[2016-04-27 08:00] VITALS: BP 119/77; PULSE 86; RESP 18
[2016-04-27] MEDS: FLUCONAZOLE 100 MG TAB PO SCH (09:08)
[2016-04-27] MEDS: ACYCLOVIR 400 MG TAB PO SCH ×2 (09:09→20:57)
[2016-04-27] MEDS: METOPROLOL 100 MG TAB PO SCH ×2 (09:10→20:50)
[2016-04-27] MEDS: ALLOPURINOL 300 MG TAB PO SCH (09:10)
[2016-04-27] MEDS: AMLODIPINE 5 MG TAB PO SCH ×2 (09:10→20:50)
[2016-04-27] MEDS: LISINOPRIL 20 MG TAB PO SCH ×2 (09:11→20:51)
[2016-04-27] MEDS: POLYETHYLENE GLYCOL 17 GM PACKET PO SCH (09:12)
[2016-04-27] MEDS: COLLAGENASE 30 GM TUBE TOP SCH (09:15)
[2016-04-27] MEDS: SOD CHLORIDE 0.9% 1,000 ML IV SCH ×2 (09:50→20:56)
[2016-04-27 10:18] LABS: LYMPHOCYTES # 0.5 10^3/ul (0.8-2.9); NEUTROPHIL # 0.1 10^3/ul (1.6-7.5)
[2016-04-27 10:19] LABS: PLATELET ESTIMATE PLT APPEAR DECREASED
--- NOTE | 2016-04-27 14:16 | CONS ---
Date/Time of Note Date/Time of Note DATE: 04/27/16 TIME: 14:14 Assessment/Plan Assessment/Plan Chief Complaint/Hosp Course 55-year-old gentleman with multiple medical problems including insulin dependant DM (not compliant), legal blindness at least for the past 6 months, hypertension, cardiomegaly with a chronic rt first and second toe infection, who initially presented with Left sided chest pain. Initial labs also revealed pancytopenia with a Hg 6.7 and platelets in 30's. 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 He has since spiked a fever to 103 but is now afebrile. Problems: Additional Assessment/Plan -Pt is now s/p 5 days of cladribine 0.14mg/kg/day continues IV infusion x 5 days + Rituxan. -continue antibiotics per ID for osteomyelitis -neutropenia related to cladribine, continue to monitor. -continue broad spectrum antibiotics for neutropenic fevers -f/u cultures -continue Neupogen Approximately 40 min were spent at patient's bedside and in coordination of his care Consultation Date/Type/Reason Admit Date/Time Apr 10, 2016 at 16:55 Initial Consult Date 04/11/16 Type of Consultation: hematology Reason for Consultation hairy cell leukemia Referring Provider: LAUREL ANDERSON 24 HR Interval Summary Free Text/Dictation pt has completed his chemotherapy. still pancytopenic and remains on antibiotics for his osteomyelitis Exam/Review of Systems Vital Signs Vitals Vital Signs Date Time Temp Pulse Resp B/P Pulse Ox O2 Delivery O2 Flow Rate FiO2 04/27/16 08:00 98.3 86 18 119/77 100 Room Air Intake and Output 04/26/16 04/26/16 04/27/16 15:00 23:00 07:00 Intake Total 700 ml 2111.6 ml 1975 ml Output Total 1400 ml 1100 ml 1400 ml Balance -700 ml 1011.6 ml 575 ml Exam Constitutional: alert, oriented Head: atraumatic, normocephalic Eyes: nl conjunctiva, other (blind) ENMT: nl external ears & nose, nl lips & teeth Neck: supple Respiratory: diminished breath sounds Cardiovascular: regular rate and rhythm Gastrointestinal: soft Musculoskeletal: nl extremities to inspection, nl gait and stance Results Result Diagram: 04/27/16 0455 04/27/16 0455 Results 24 hrs Laboratory Tests Test 04/26/16 16:43 04/26/16 20:38 04/27/16 04:55 04/27/16 05:05 Bedside Glucose 75 110 Alanine Aminotransferase (ALT/SGPT) 83 H Albumin 2.8 L Albumin/Globulin Ratio 0.66 Alkaline Phosphatase 227 H Anion Gap 13 Aspartate Amino Transf (AST/SGOT) 45 # Band Neutrophils % 3.0 Basophils # Basophils % Blood Morphology Comment Blood Urea Nitrogen 18 Calcium Level 7.9 L Carbon Dioxide Level 25 Chloride Level 100 Creatinine 0.95 Differential Comment MANUAL DIFF Direct Bilirubin 0.70 #H Eosinophils # Eosinophils % Globulin 4.20 H Glucose Level 99 # Hematocrit 23.6 L Hemoglobin 8.0 L Indirect Bilirubin 1.0 Lymphocytes # 0.5 L Lymphocytes % 77.0 H Mean Corpuscular Hemoglobin 30.4 Mean Corpuscular Hemoglobin Concent 33.8 Mean Corpuscular Volume 90.1 Mean Platelet Volume 9.3 Monocytes # 0.0 L Monocytes % 5.0 Neutrophils # 0.1 L Neutrophils % 13.0 L Nucleated Red Blood Cells % 3.0 H Platelet Count 22 *L Platelet Estimate PLT APPEAR DECREASED Potassium Level 3.2 L Reactive Lymphocytes % 2.0 Red Blood Count 2.62 L Red Cell Distribution Width 23.8 H Sodium Level 135 Total Bilirubin 1.7 H Total Protein 7.0 White Blood Count 0.6 L Magnesium Level 1.6 L Test 04/27/16 08:08 04/27/16 12:14 Bedside Glucose 129 117 Medications Medications Current Medications Ondansetron HCl (Zofran Inj) 4 mg Q6H PRN IV NAUSEA AND/OR VOMITING; Start 04/10/16 at 19:00 Nitroglycerin (Nitroglycerin (Sl Tab) 0.4 Mg) 1 tab Q5M PRN SL CHEST PAIN; Start 04/10/16 at 19:00 Acetaminophen (Tylenol Tab) 650 mg Q6H PRN PO PAIN LEVEL 1-3 OR FEVER Last administered on 04/26/16at 09:36; Admin Dose 650 MG; Start 04/10/16 at 19:00 Acetaminophen/ Hydrocodone Bitart ([place] (5/325)) 1 tab Q6H PRN PO PAIN LEVEL 4 -6 Last administered on 04/14/16at 23:25; Admin Dose 1 TAB; Start 04/10/16 at 19: 00 Acetaminophen/ Hydrocodone Bitart ([place] (5/325)) 2 tab Q6H PRN PO PAIN LEVEL 7 -10 Last administered on 04/27/16at 04:25; Admin Dose 2 TAB; Start 04/10/16 at 19:00 Morphine Sulfate (morphine) 2 mg Q4H PRN IV PAIN LEVEL 7-10 Last administered on 04/20/16at 15:23; Admin Dose 2 MG; Start 04/10/16 at 19:00 Magnesium Hydroxide (Milk Of Mag) 30 ml DAILY PRN PO CONSTIPATION Last administered on 04/21/16at 05:00; Admin Dose 30 ML; Start 04/10/16 at 19:00 Bisacodyl (Dulcolax Supp) 10 mg DAILY PRN [place] CONSTIPATION; Start 04/10/16 at 19 :00 Pantoprazole (Protonix Tab) 40 mg DAILY@06 PO Last administered on 04/27/16at 05:25; Admin Dose 40 MG; Start 04/11/16 at 06:00 Miscellaneous Information 1 ea NOTE XX ; Start 04/10/16 at 19:00 Glucose (Glutose) 15 gm Q15M PRN PO DECREASED GLUCOSE; Start 04/10/16 at 19:00 Glucose (Glutose) 22.5 gm Q15M PRN PO DECREASED GLUCOSE; Start 04/10/16 at 19: 00 Dextrose (D50w Syringe) 25 ml Q15M PRN IV DECREASED GLUCOSE; Start 04/10/16 at 19:00 Dextrose (D50w Syringe) 50 ml Q15M PRN IV DECREASED GLUCOSE; Start 04/10/16 at 19:00 Glucagon (Glucagen) 1 mg Q15M PRN IM DECREASED GLUCOSE; Start 04/10/16 at 19:00 Glucose (Glutose) 15 gm Q15M PRN BUCCAL DECREASED GLUCOSE; Start 04/10/16 at 19 :00 Metoprolol Tartrate (Lopressor) 100 mg BID PO Last administered on 04/27/16at 09:10; Admin Dose 100 MG; Start 04/11/16 at 09:00 Docusate Sodium (Colace) 100 mg Q12H PO Last administered on 04/27/16at 05:25; Admin Dose 100 MG; Start 04/11/16 at 19:00 Polyethylene Glycol (Miralax) 17 gm DAILY PO Last administered on 04/27/16 09 :12; Admin Dose 17 GM; Start 04/11/16 at 13:00 Levofloxacin (Levaquin) 500 mg DAILY@06 PO Last administered on 04/27/16 05: 24; Admin Dose 500 MG; Start 04/15/16 at 14:00 Collagenase (Santyl) 1 applic DAILY TOP Last administered on 04/27/16 09:15; Admin Dose 1 APPLIC; Start 04/17/16 at 16:00 Allopurinol (Zyloprim) 300 mg DAILY PO Last administered on 04/27/16 09:10; Admin Dose 300 MG; Start 04/18/16 at 09:30 IV Flush 10 ml 10 ml PRN PRN IV IV PROTOCOL; Start 04/18/16 at 11:30 Sodium Chloride (NS) 1,000 ml @ 75 mls/hr [id number] IV Last administered on 23:50; Admin Dose 75 MLS/HR; Start 04/18/16 at 12:30 Dexamethasone (Decadron) 10 mg Q4H PRN IV REACTION Last administered on 16:58; Admin Dose 10 MG; Start 04/18/16 at 13:00 Diphenhydramine HCl 25 mg 25 mg Q4H PRN IV ALLERGIC REACTION Last administered on 04/24/16 16:42; Admin Dose 25 MG; Start 04/18/16 at 13:00 Ondansetron HCl/ Sodium Chloride (Zofran Inj/NS) 54 ml @ 110 mls/hr Q8H PRN IV NAUSEA; Start 04/18/16 at 13:00 Amlodipine Besylate (Norvasc) 5 mg BID PO Last administered on 04/27/16 09:10 ; Admin Dose 5 MG; Start 04/21/16 at 21:00 Lisinopril (Zestril) 20 mg BID PO Last administered on 04/27/16 09:11; Admin Dose 20 MG; Start 04/21/16 at 21:00 Hydralazine HCl (Apresoline) 10 mg Q8H PRN IV ELEVATED BLOOD PRESSURE; Start 04/21/16 at 12:00 Insulin Glargine 50 unit 50 unit QHS SC Last administered on 04/25/16at 22:25; Admin Dose 50 UNIT; Start 04/23/16 at 21:00 Vancomycin HCl 1.25 gm/Sodium Chloride 250 ml @ 83.333 mls/ hr Q12H IVPB Last administered on 04/27/16at 04:29; Admin Dose 83.333 MLS/HR; Start 04/24/16 at 16:00 Filgrastim/ Dextrose (Neupogen/D5W) 51.6 ml @ 103.2 mls/ hr DAILY@17 IVPB Last administered on 04/26/16at 18:46; Admin Dose 103.2 MLS/HR; Start 04/25/16 at 17:00 Fluconazole (Diflucan) 100 mg DAILY PO Last administered on 04/27/16at 09:08; Admin Dose 100 MG; Start 04/27/16 at 09:00 Acyclovir (Zovirax) 400 mg BID PO Last administered on 04/27/16at 09:09; Admin Dose 400 MG; Start 04/26/16 at 11:45 TOY DWYER M.D. Apr 27, 2016 14:16
--- NOTE | 2016-04-27 15:14 | PN ---
Date/Time of Note Date/Time of Note DATE: 04/27/16 TIME: 15:05 Assessment/Plan VTE Prophylaxis VTE Prophylaxis Intervention: SCD's Lines/Catheters IV Catheter Type (from Nrsg): PICC Line Central line still needed: Yes (for chemo ) Urinary Cath still in place: No Assessment/Plan Assessment/Plan 55-year-old male with: 1. Hairy cell Leukemia. patient admitted with anemia, acute on chronic, pancytopenia, primarily thrombocytopenic. HIV negative. Now Neutropenic and fever today Appreciate Hematology's assistance and ID recs Neupogen given per Heme, abx adjusted per ID, patient now also on acyclovir Hopefully count recovery soon Dr Flannery following. 2. Right 1st and 2nd toe. ESR elevated. Fever overnight in setting of neutropenia. MRI foot with osteomyelitis and JOSE J negative Blood cultures NGTD and wound cultures NGTD Wound care and Dr Thomas following patient. Pancultured and CXR stable Now on Vanco, Levaquin, Diflucan and Acyclovir 3. Diabetes mellitus. A1c back at 7.2 ...Continue current insulin regimen, keeping off glyburide. On Tradjenta. Increased Lantus to 50 and premeal insulin to 12 Appreciate patient educator recommendations. Patient really needs to be compliant with ADA diet. BG currently up due to non compliance even inpatient stills get food from family members visiting ... 4. Cardiomegaly, EF 50%. No further episodes of NSVT since yesterday. Continue Lopressor/Bblock Electrolytes stable again today. S/p negative JOSE J 5. Hypertension. Continue beta blockers, Norvasc and Lisinopril. Also on hydralazine prn. 6. Constipation, relieved: continue Miralax and Colace scheduled and add MOM along with Dulcolax prn. 7. 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 now on acyclovir so d/c Valacyclovir ...Will need Ophthalmology eval outpatient either way if not done prior Patient blind Prophylaxis. Proton pump inhibitors for GI prophylaxis and SCDs for DVT prophylaxis. DISPOSITION: Post Chemo. F/u wound care and follow up further ID and Podiatry recs. Will likely require SNF at discharge. Subjective 24 Hr Interval Summary Free Text/Dictation Patient doing well and afebrile currently On multiple abx and per Hematology to get Neupogen x 5 days Exam/Review of Systems Vital Signs Vitals Vital Signs Date Time Temp Pulse Resp B/P Pulse Ox O2 Delivery O2 Flow Rate FiO2 04/27/16 08:00 98.3 86 18 119/77 100 Room Air Intake and Output 04/26/16 04/26/16 04/27/16 14:59 22:59 06:59 Intake Total 700 ml 2111.6 ml 1975 ml Output Total 1400 ml 1100 ml 1400 ml Balance -700 ml 1011.6 ml 575 ml Exam Constitutional: alert, oriented, well developed Respiratory: clear to auscultation, normal air movement Cardiovascular: nl pulses, regular rate and rhythm Gastrointestinal: non-tender, soft Musculoskeletal: nl extremities to inspection Extremities: normal pulses, other (no edema, clubbing or cyanosis ) 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, nl mental status, nl speech, nl strength Results Result Diagram: 04/27/16 0455 04/27/16 0455 Results 24 hrs Laboratory Tests Test 04/26/16 16:43 04/26/16 20:38 04/27/16 04:55 04/27/16 05:05 Bedside Glucose 75 110 Alanine Aminotransferase (ALT/SGPT) 83 H Albumin 2.8 L Albumin/Globulin Ratio 0.66 Alkaline Phosphatase 227 H Anion Gap 13 Aspartate Amino Transf (AST/SGOT) 45 # Band Neutrophils % 3.0 Basophils # Basophils % Blood Morphology Comment Blood Urea Nitrogen 18 Calcium Level 7.9 L Carbon Dioxide Level 25 Chloride Level 100 Creatinine 0.95 Differential Comment MANUAL DIFF Direct Bilirubin 0.70 #H Eosinophils # Eosinophils % Globulin 4.20 H Glucose Level 99 # Hematocrit 23.6 L Hemoglobin 8.0 L Indirect Bilirubin 1.0 Lymphocytes # 0.5 L Lymphocytes % 77.0 H Mean Corpuscular Hemoglobin 30.4 Mean Corpuscular Hemoglobin Concent 33.8 Mean Corpuscular Volume 90.1 Mean Platelet Volume 9.3 Monocytes # 0.0 L Monocytes % 5.0 Neutrophils # 0.1 L Neutrophils % 13.0 L Nucleated Red Blood Cells % 3.0 H Platelet Count 22 *L Platelet Estimate PLT APPEAR DECREASED Potassium Level 3.2 L Reactive Lymphocytes % 2.0 Red Blood Count 2.62 L Red Cell Distribution Width 23.8 H Sodium Level 135 Total Bilirubin 1.7 H Total Protein 7.0 White Blood Count 0.6 L Magnesium Level 1.6 L Test 04/27/16 08:08 04/27/16 12:14 Bedside Glucose 129 117 Medications Medications Current Medications Ondansetron HCl (Zofran Inj) 4 mg Q6H PRN IV NAUSEA AND/OR VOMITING; Start 04/10/16 at 19:00 Nitroglycerin (Nitroglycerin (Sl Tab) 0.4 Mg) 1 tab Q5M PRN SL CHEST PAIN; Start 04/10/16 at 19:00 Acetaminophen (Tylenol Tab) 650 mg Q6H PRN PO PAIN LEVEL 1-3 OR FEVER Last administered on 04/26/16at 09:36; Admin Dose 650 MG; Start 04/10/16 at 19:00 Acetaminophen/ Hydrocodone Bitart ([place] (5/325)) 1 tab Q6H PRN PO PAIN LEVEL 4 -6 Last administered on 04/14/16at 23:25; Admin Dose 1 TAB; Start 04/10/16 at 19: 00 Acetaminophen/ Hydrocodone Bitart ([place]andy (5/325)) 2 tab Q6H PRN PO PAIN LEVEL 7 -10 Last administered on 04/27/16at 04:25; Admin Dose 2 TAB; Start 04/10/16 at 19:00 Morphine Sulfate (morphine) 2 mg Q4H PRN IV PAIN LEVEL 7-10 Last administered on 04/20/16at 15:23; Admin Dose 2 MG; Start 04/10/16 at 19:00 Magnesium Hydroxide (Milk Of Mag) 30 ml DAILY PRN PO CONSTIPATION Last administered on 04/21/16at 05:00; Admin Dose 30 ML; Start 04/10/16 at 19:00 Bisacodyl (Dulcolax Supp) 10 mg DAILY PRN [place] CONSTIPATION; Start 04/10/16 at 19 :00 Pantoprazole (Protonix Tab) 40 mg DAILY@06 PO Last administered on 04/27/16at 05:25; Admin Dose 40 MG; Start 04/11/16 at 06:00 Miscellaneous Information 1 ea NOTE XX ; Start 04/10/16 at 19:00 Glucose (Glutose) 15 gm Q15M PRN PO DECREASED GLUCOSE; Start 04/10/16 at 19:00 Glucose (Glutose) 22.5 gm Q15M PRN PO DECREASED GLUCOSE; Start 04/10/16 at 19: 00 Dextrose (D50w Syringe) 25 ml Q15M PRN IV DECREASED GLUCOSE; Start 04/10/16 at 19:00 Dextrose (D50w Syringe) 50 ml Q15M PRN IV DECREASED GLUCOSE; Start 04/10/16 at 19:00 Glucagon (Glucagen) 1 mg Q15M PRN IM DECREASED GLUCOSE; Start 04/10/16 at 19:00 Glucose (Glutose) 15 gm Q15M PRN BUCCAL DECREASED GLUCOSE; Start 04/10/16 at 19 :00 Metoprolol Tartrate (Lopressor) 100 mg BID PO Last administered on 04/27/16at 09:10; Admin Dose 100 MG; Start 04/11/16 at 09:00 Docusate Sodium (Colace) 100 mg Q12H PO Last administered on 04/27/16at 05:25; Admin Dose 100 MG; Start 04/11/16 at 19:00 Polyethylene Glycol (Miralax) 17 gm DAILY PO Last administered on 04/27/16at 09 :12; Admin Dose 17 GM; Start 04/11/16 at 13:00 Levofloxacin (Levaquin) 500 mg DAILY@06 PO Last administered on 04/27/16at 05: 24; Admin Dose 500 MG; Start 04/15/16 at 14:00 Collagenase (Santyl) 1 applic DAILY TOP Last administered on 04/27/16at 09:15; Admin Dose 1 APPLIC; Start 04/17/16 at 16:00 Allopurinol (Zyloprim) 300 mg DAILY PO Last administered on 04/27/16at 09:10; Admin Dose 300 MG; Start 04/18/16 at 09:30 IV Flush 10 ml 10 ml PRN PRN IV IV PROTOCOL; Start 04/18/16 at 11:30 Sodium Chloride (NS) 1,000 ml @ 75 mls/hr [id number] IV Last administered on at 23:50; Admin Dose 75 MLS/HR; Start 04/18/16 at 12:30 Dexamethasone (Decadron) 10 mg Q4H PRN IV REACTION Last administered on at 16:58; Admin Dose 10 MG; Start 04/18/16 at 13:00 Diphenhydramine HCl 25 mg 25 mg Q4H PRN IV ALLERGIC REACTION Last administered on 04/24/16at 16:42; Admin Dose 25 MG; Start 04/18/16 at 13:00 Ondansetron HCl/ Sodium Chloride (Zofran Inj/NS) 54 ml @ 110 mls/hr Q8H PRN IV NAUSEA; Start 04/18/16 at 13:00 Amlodipine Besylate (Norvasc) 5 mg BID PO Last administered on 04/27/16 09:10 ; Admin Dose 5 MG; Start 04/21/16 at 21:00 Lisinopril (Zestril) 20 mg BID PO Last administered on 04/27/16at 09:11; Admin Dose 20 MG; Start 04/21/16 at 21:00 Hydralazine HCl (Apresoline) 10 mg Q8H PRN IV ELEVATED BLOOD PRESSURE; Start 04/21/16 at 12:00 Insulin Glargine 50 unit 50 unit QHS SC Last administered on 04/25/16 22:25; Admin Dose 50 UNIT; Start 04/23/16 at 21:00 Vancomycin HCl 1.25 gm/Sodium Chloride 250 ml @ 83.333 mls/ hr Q12H IVPB Last administered on 04/27/16at 04:29; Admin Dose 83.333 MLS/HR; Start 04/24/16 at 16:00 Filgrastim/ Dextrose (Neupogen/D5W) 51.6 ml @ 103.2 mls/ hr DAILY@17 IVPB Last administered on 04/26/16at 18:46; Admin Dose 103.2 MLS/HR; Start 04/25/16 at 17:00 Fluconazole (Diflucan) 100 mg DAILY PO Last administered on 04/27/16at 09:08; Admin Dose 100 MG; Start 04/27/16 at 09:00 Acyclovir (Zovirax) 400 mg BID PO Last administered on 04/27/16 09:09; Admin Dose 400 MG; Start 04/26/16 at 11:45 LAUREL ANDERSON Apr 27, 2016 15:14
--- NOTE | 2016-04-27 17:57 | CONS ---
Date/Time of Note Date/Time of Note DATE: 04/27/16 TIME: 17:55 Consult Date/Type/Reason Admit Date/Time Apr 10, 2016 at 16:55 Initial Consult Date 04/11/16 Type of Consultation: ID Ordering Provider: LAUREL ANDERSON Subjective alert, denies pain, nad, low grade temps, no n/v/d Objective Vital Signs Date Time Temp Pulse Resp B/P Pulse Ox O2 Delivery O2 Flow Rate FiO2 04/27/16 08:00 98.3 86 18 119/77 100 Room Air Intake and Output 04/26/16 04/26/16 04/27/16 15:00 23:00 07:00 Intake Total 700 ml 2111.6 ml 1975 ml Output Total 1400 ml 1100 ml 1400 ml Balance -700 ml 1011.6 ml 575 ml Results/Medications Result Diagram: 04/27/16 0455 04/27/16 0455 Results 24 hrs Laboratory Tests Test 04/26/16 20:38 04/27/16 04:55 04/27/16 05:05 04/27/16 08:08 Bedside Glucose 110 129 Alanine Aminotransferase (ALT/SGPT) 83 H Albumin 2.8 L Albumin/Globulin Ratio 0.66 Alkaline Phosphatase 227 H Anion Gap 13 Aspartate Amino Transf (AST/SGOT) 45 # Band Neutrophils % 3.0 Basophils # Basophils % Blood Morphology Comment Blood Urea Nitrogen 18 Calcium Level 7.9 L Carbon Dioxide Level 25 Chloride Level 100 Creatinine 0.95 Differential Comment MANUAL DIFF Direct Bilirubin 0.70 #H Eosinophils # Eosinophils % Globulin 4.20 H Glucose Level 99 # Hematocrit 23.6 L Hemoglobin 8.0 L Indirect Bilirubin 1.0 Lymphocytes # 0.5 L Lymphocytes % 77.0 H Mean Corpuscular Hemoglobin 30.4 Mean Corpuscular Hemoglobin Concent 33.8 Mean Corpuscular Volume 90.1 Mean Platelet Volume 9.3 Monocytes # 0.0 L Monocytes % 5.0 Neutrophils # 0.1 L Neutrophils % 13.0 L Nucleated Red Blood Cells % 3.0 H Platelet Count 22 *L Platelet Estimate PLT APPEAR DECREASED Potassium Level 3.2 L Reactive Lymphocytes % 2.0 Red Blood Count 2.62 L Red Cell Distribution Width 23.8 H Sodium Level 135 Total Bilirubin 1.7 H Total Protein 7.0 White Blood Count 0.6 L Magnesium Level 1.6 L Test 04/27/16 12:14 12/22/16 16:40 Bedside Glucose 117 164 Medications Current Medications Ondansetron HCl (Zofran Inj) 4 mg Q6H PRN IV NAUSEA AND/OR VOMITING; Start 04/10/16 at 19:00 Nitroglycerin (Nitroglycerin (Sl Tab) 0.4 Mg) 1 tab Q5M PRN SL CHEST PAIN; Start 04/10/16 at 19:00 Acetaminophen (Tylenol Tab) 650 mg Q6H PRN PO PAIN LEVEL 1-3 OR FEVER Last administered on 04/26/16at 09:36; Admin Dose 650 MG; Start 04/10/16 at 19:00 Acetaminophen/ Hydrocodone Bitart ([place] (5/325)) 1 tab Q6H PRN PO PAIN LEVEL 4 -6 Last administered on 04/14/16at 23:25; Admin Dose 1 TAB; Start 04/10/16 at 19: 00 Acetaminophen/ Hydrocodone Bitart ([place]al (5/325)) 2 tab Q6H PRN PO PAIN LEVEL 7 -10 Last administered on 04/27/16at 16:34; Admin Dose 2 TAB; Start 04/10/16 at 19:00 Morphine Sulfate (morphine) 2 mg Q4H PRN IV PAIN LEVEL 7-10 Last administered on 04/20/16at 15:23; Admin Dose 2 MG; Start 04/10/16 at 19:00 Magnesium Hydroxide (Milk Of Mag) 30 ml DAILY PRN PO CONSTIPATION Last administered on 04/21/16at 05:00; Admin Dose 30 ML; Start 04/10/16 at 19:00 Bisacodyl (Dulcolax Supp) [address] CONSTIPATION; Start 04/10/16 at 19 :00 Pantoprazole (Protonix Tab) 40 mg DAILY@06 PO Last administered on 04/27/16at 05:25; Admin Dose 40 MG; Start 04/11/16 at 06:00 Miscellaneous Information 1 ea NOTE XX ; Start 04/10/16 at 19:00 Glucose (Glutose) 15 gm Q15M PRN PO DECREASED GLUCOSE; Start 04/10/16 at 19:00 Glucose (Glutose) 22.5 gm Q15M PRN PO DECREASED GLUCOSE; Start 04/10/16 at 19: 00 Dextrose (D50w Syringe) 25 ml Q15M PRN IV DECREASED GLUCOSE; Start 04/10/16 at 19:00 Dextrose (D50w Syringe) 50 ml Q15M PRN IV DECREASED GLUCOSE; Start 04/10/16 at 19:00 Glucagon (Glucagen) 1 mg Q15M PRN IM DECREASED GLUCOSE; Start 04/10/16 at 19:00 Glucose (Glutose) 15 gm Q15M PRN BUCCAL DECREASED GLUCOSE; Start 04/10/16 at 19 :00 Metoprolol Tartrate (Lopressor) 100 mg BID PO Last administered on 04/27/16at 09:10; Admin Dose 100 MG; Start 04/11/16 at 09:00 Docusate Sodium (Colace) 100 mg Q12H PO Last administered on 04/27/16at 05:25; Admin Dose 100 MG; Start 04/11/16 at 19:00 Polyethylene Glycol (Miralax) 17 gm DAILY PO Last administered on 04/27/16at 09 :12; Admin Dose 17 GM; Start 04/11/16 at 13:00 Levofloxacin (Levaquin) 500 mg DAILY@06 PO Last administered on 04/27/16at 05: 24; Admin Dose 500 MG; Start 04/15/16 at 14:00 Collagenase (Santyl) 1 applic DAILY TOP Last administered on 04/27/16at 09:15; Admin Dose 1 APPLIC; Start 04/17/16 at 16:00 Allopurinol (Zyloprim) 300 mg DAILY PO Last administered on 04/27/16at 09:10; Admin Dose 300 MG; Start 04/18/16 at 09:30 IV Flush 10 ml 10 ml PRN PRN IV IV PROTOCOL; Start 04/18/16 at 11:30 Sodium Chloride (NS) 1,000 ml @ 75 mls/hr [id number] IV Last administered on at 23:50; Admin Dose 75 MLS/HR; Start 04/18/16 at 12:30 Dexamethasone (Decadron) 10 mg Q4H PRN IV REACTION Last administered on at 16:58; Admin Dose 10 MG; Start 04/18/16 at 13:00 Diphenhydramine HCl 25 mg 25 mg Q4H PRN IV ALLERGIC REACTION Last administered on 04/24/16at 16:42; Admin Dose 25 MG; Start 04/18/16 at 13:00 Ondansetron HCl/ Sodium Chloride (Zofran Inj/NS) 54 ml @ 110 mls/hr Q8H PRN IV NAUSEA; Start 04/18/16 at 13:00 Amlodipine Besylate (Norvasc) 5 mg BID PO Last administered on 04/27/16at 09:10 ; Admin Dose 5 MG; Start 04/21/16 at 21:00 Lisinopril (Zestril) 20 mg BID PO Last administered on 04/27/16at 09:11; Admin Dose 20 MG; Start 04/21/16 at 21:00 Hydralazine HCl (Apresoline) 10 mg Q8H PRN IV ELEVATED BLOOD PRESSURE; Start 04/21/16 at 12:00 Insulin Glargine 50 unit 50 unit QHS SC Last administered on 04/25/16at 22:25; Admin Dose 50 UNIT; Start 04/23/16 at 21:00 Vancomycin HCl 1.25 gm/Sodium Chloride 250 ml @ 83.333 mls/ hr Q12H IVPB Last administered on 04/27/16at 16:34; Admin Dose 83.333 MLS/HR; Start 04/24/16 at 16:00 Filgrastim/ Dextrose (Neupogen/D5W) 51.6 ml @ 103.2 mls/ hr DAILY@17 IVPB Last administered on 04/26/16at 18:46; Admin Dose 103.2 MLS/HR; Start 04/25/16 at 17:00 Fluconazole (Diflucan) 100 mg DAILY PO Last administered on 04/27/16at 09:08; Admin Dose 100 MG; Start 04/27/16 at 09:00 Acyclovir (Zovirax) 400 mg BID PO Last administered on 04/27/16at 09:09; Admin Dose 400 MG; Start 04/26/16 at 11:45 Assessment/Plan Chief Complaint/Hosp Course ANTIMICROBIALS: 1. Vancomycin 2. Levaquin. 3. Diflucan 4. Acyclovir Indwellings: LUE PICC 04/18/16 PHYSICAL EXAMINATION: GENERAL: Obese, well-developed, middle-aged man who is awake, in no distress. HEENT: Head atraumatic, normocephalic. Sclerae anicteric. Buccal mucosa pink. NECK: Supple. Trachea midline. LUNGS: Chest rise symmetrical. Breath sounds clear, diminished at bases. HEART: S1, S2. ABDOMEN: Soft. Bowel tones present. EXTREMITIES: With right foot edema ASSESSMENT: 1. Neutropenic fever==> r/o infection, s/p jimenez cx this am 2. 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 4. Diabetes. 5. Hypertension. 6. Legally blind. PLAN: Clinically stable, urine cx + Staph, likely contaminant, bld cx negative, will continue on current abx, chemotherapy per oncology, f/u podiatry rec-s [facility] staff Problems: JUVENAL SANCHEZ NP Apr 27, 2016 17:56
[2016-04-27 20:05] VITALS: BP 101/59; PULSE 79; RESP 19
[2016-04-27] MEDS: FILGRASTIM IVPB SCH (20:28)
[2016-04-27] MEDS: DEXTROSE 5% IVPB SCH (20:28)
[2016-04-27] MEDS: INSULIN GLARGINE [LANtus] 3 ML PEN SC SCH (20:58)
[2016-04-28] MEDS: HYDROCODONE/APAP (5/325) TAB PO PRN ×3 (00:19→21:07)
[2016-04-28] MEDS: ACETAMINOPHEN 325 MG TAB PO PRN (03:37)
[2016-04-28] MEDS: VANCOMYCIN 1.25 GM in SOD CHLORIDE 0.9% 250 ML IVPB SCH ×2 (04:12→17:03)
[2016-04-28] MEDS ORDERED: ALTEPLASE (CATHFLO) 2 MG INJ CATHETER PRN (04:30)
[2016-04-28] MEDS: LEVOFLOXACIN 500 MG TAB PO SCH (05:23)
[2016-04-28] MEDS: DOCUSATE SODIUM 100 MG CAP PO SCH ×2 (05:23→18:39)
[2016-04-28] MEDS: PANTOPRAZOLE (EC) 40 MG TAB PO SCH (05:23)
[2016-04-28 06:57] LABS: HEMATOCRIT 23.7 % (42.0-52.0); HEMOGLOBIN 7.9 g/dl (14.0-18.0); MEAN CORPUSCULAR HEMOGLOBIN 30.3 pg (29.0-33.0); MEAN CORPUSCULAR HGB CONC 33.3 g/dl (32.0-37.0); RED CELL DISTRIBUTION WIDTH 23.9 % (11.5-14.5); UNCORRECTED WBC 0.7 10^3/ul (4.8-10.8); WHITE BLOOD COUNT 0.7 10^3/ul (4.8-10.8)
[2016-04-28 07:06] LABS: CONDITION 1; LH ANALYZER COMMENTS 1; MEAN PLATELET VOLUME 9.2 fl (7.4-10.4); SUSPECT 1
[2016-04-28 07:08] LABS: PLATELET COUNT 23 10^3/UL (140-440)
[2016-04-28 07:16] LABS: ALBUMIN 2.8 g/dl (3.3-4.9)
[2016-04-28 07:17] LABS: POTASSIUM 3.5 mmol/L (3.5-5.1)
[2016-04-28 07:19] LABS: ALBUMIN/GLOBULIN RATIO 0.66; BILIRUBIN,INDIRECT 0.5 mg/dl (0-1.1); BILIRUBIN,TOTAL 0.5 mg/dl (0.2-1.3); CREATININE 0.82 mg/dl (0.61-1.24)
[2016-04-28 07:20] LABS: CALCIUM 7.6 mg/dl (8.4-10.2)
[2016-04-28 08:00] VITALS: BP 134/94; PULSE 113; RESP 20
[2016-04-28] MEDS: POLYETHYLENE GLYCOL 17 GM PACKET PO SCH (09:00)
[2016-04-28] MEDS: COLLAGENASE 30 GM TUBE TOP SCH (09:21)
[2016-04-28] MEDS: LISINOPRIL 20 MG TAB PO SCH ×2 (09:22→21:07)
[2016-04-28] MEDS: ACYCLOVIR 400 MG TAB PO SCH ×2 (09:22→21:07)
[2016-04-28] MEDS: METOPROLOL 100 MG TAB PO SCH ×2 (09:23→21:06)
[2016-04-28] MEDS: AMLODIPINE 5 MG TAB PO SCH ×2 (09:23→21:07)
[2016-04-28] MEDS: FLUCONAZOLE 100 MG TAB PO SCH (09:23)
[2016-04-28] MEDS: ALLOPURINOL 300 MG TAB PO SCH (09:23)
[2016-04-28] MEDS: INSULIN ASPART [NOVOLOG] 3 ML PEN SC SCH ×6 (09:26→18:49)
[2016-04-28 11:02] LABS: LYMPHOCYTES # 0.7 10^3/ul (0.8-2.9); PLATELET ESTIMATE PLT APPEAR DECREASED
[2016-04-28] MEDS: SOD CHLORIDE 0.9% 1,000 ML IV SCH ×2 (12:06→16:07)
--- NOTE | 2016-04-28 15:02 | PN ---
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 HIV negative. Neutropenic still and afebrile today Appreciate Hematology's assistance and ID recs Neupogen given per Heme, abx adjusted per ID, patient also on Acyclovir and Diflucan Hopefully count recovery soon Dr Flannery following. 2. Right 1st and 2nd toe. ESR elevated. Neutropenic post chemo. MRI foot with osteomyelitis and JOSE J negative Blood cultures NGTD and wound cultures NGTD Wound care and Dr Thomas following patient. Now on Vanco, Levaquin, Diflucan and Acyclovir 3. ? UTI, urine culture with Coag neg staph and tiffany but low CFU: currently on Vanco, Diflucan already, f/u ID recs 4. Diabetes mellitus. A1c back at 7.2 ...Continue current insulin regimen, keeping off glyburide. On Tradjenta. Increased Lantus to 50 and premeal insulin to 12 Appreciate community educator recommendations. Patient really needs to be compliant with ADA diet. BG currently up due to non compliance even inpatient stills get food from family members visiting ... 5. Cardiomegaly, EF 50%. No further episodes of NSVT since yesterday. Continue Lopressor/Bblock Electrolytes stable again today. S/p negative JOSE J 6. Hypertension. Continue beta blockers, Norvasc and Lisinopril. Also on hydralazine prn. 7. Constipation, relieved: continue Miralax and Colace scheduled and add MOM along with Dulcolax prn. 8. 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 now on acyclovir so d/c Valacyclovir ...Will need Ophthalmology eval outpatient either way if not done prior Patient blind Prophylaxis. Proton pump inhibitors for GI prophylaxis and SCDs for DVT prophylaxis. DISPOSITION: Post Chemo. F/u wound care and follow up further ID and Podiatry recs. Will likely require SNF at discharge. Subjective 24 Hr Interval Summary Free Text/Dictation Patient still neutropenic, afebrile, on abx Nausea/vomiting with po intake today, Day3 post chemo ended now Otherwise no complaints Subjective hx not possible: pt critical status Eyes: visual change Exam/Review of Systems Vital Signs Vitals Vital Signs Date Time Temp Pulse Resp B/P Pulse Ox O2 Delivery O2 Flow Rate FiO2 04/28/16 08:00 98.1 113 20 134/94 98 Room Air Intake and Output 04/27/16 04/27/16 04/28/16 15:00 23:00 07:00 Intake Total 971.6 ml 1370 ml Balance 971.6 ml 1370 ml Exam Constitutional: alert, oriented, well developed Respiratory: clear to auscultation, normal air movement Cardiovascular: nl pulses, regular rate and rhythm Gastrointestinal: non-tender, soft Musculoskeletal: other (right foot with dressing on ) Extremities: normal pulses, other (no edema, clubbing or cyanosis ) 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, nl mental status, nl speech, nl strength, other (blind ) Results Result Diagram: 04/28/16 0630 04/28/16 0630 Results 24 hrs Laboratory Tests Test 04/27/16 16:40 04/27/16 20:26 04/28/16 06:30 04/28/16 07:48 Bedside Glucose 164 167 246 H Alanine Aminotransferase (ALT/SGPT) 61 Albumin 2.8 L Albumin/Globulin Ratio 0.66 Alkaline Phosphatase 205 H Anion Gap 14 Aspartate Amino Transf (AST/SGOT) 18 # Basophils # 0.0 Basophils % 1.0 Blood Morphology Comment Blood Urea Nitrogen 17 Calcium Level 7.6 L Carbon Dioxide Level 27 Chloride Level 101 Creatinine 0.82 Differential Comment MANUAL DIFF Direct Bilirubin 0.00 # Eosinophils # 0.0 Eosinophils % 1.0 Globulin 4.20 H Glucose Level 236 #H Hematocrit 23.7 L Hemoglobin 7.9 L Indirect Bilirubin 0.5 Lymphocytes # 0.7 L Lymphocytes % 95.0 H Mean Corpuscular Hemoglobin 30.3 Mean Corpuscular Hemoglobin Concent 33.3 Mean Corpuscular Volume 91.0 Mean Platelet Volume 9.2 Monocytes # 0.0 L Monocytes % 2.0 Neutrophils # 0.0 L Neutrophils % 1.0 L Nucleated Red Blood Cells # Nucleated Red Blood Cells % Platelet Count 23 *L Platelet Estimate PLT APPEAR DECREASED Potassium Level 3.5 Red Blood Count 2.60 L Red Cell Distribution Width 23.9 H Sodium Level 138 Total Bilirubin 0.5 Total Protein 7.0 White Blood Count 0.7 L Test 04/28/16 12:02 Bedside Glucose 227 H Medications Medications Current Medications Ondansetron HCl (Zofran Inj) 4 mg Q6H PRN IV NAUSEA AND/OR VOMITING; Start 04/10/16 at 19:00 Nitroglycerin (Nitroglycerin (Sl Tab) 0.4 Mg) 1 tab Q5M PRN SL CHEST PAIN; Start 04/10/16 at 19:00 Acetaminophen (Tylenol Tab) 650 mg Q6H PRN PO PAIN LEVEL 1-3 OR FEVER Last administered on 04/28/16at 03:37; Admin Dose 650 MG; Start 04/10/16 at 19:00 Acetaminophen/ Hydrocodone Bitart ([place] (5/325)) 1 tab Q6H PRN PO PAIN LEVEL 4 -6 Last administered on 04/14/16at 23:25; Admin Dose 1 TAB; Start 04/10/16 at 19: 00 Acetaminophen/ Hydrocodone Bitart ([place] (5/325)) 2 tab Q6H PRN PO PAIN LEVEL 7 -10 Last administered on 04/28/16at 09:24; Admin Dose 2 TAB; Start 04/10/16 at 19:00 Morphine Sulfate (morphine) 2 mg Q4H PRN IV PAIN LEVEL 7-10 Last administered on 04/20/16at 15:23; Admin Dose 2 MG; Start 04/10/16 at 19:00 Magnesium Hydroxide (Milk Of Mag) 30 ml DAILY PRN PO CONSTIPATION Last administered on 04/21/16at 05:00; Admin Dose 30 ML; Start 04/10/16 at 19:00 Bisacodyl (Dulcolax Supp) 10 mg DAILY PRN [place] CONSTIPATION; Start 04/10/16 at 19 :00 Pantoprazole (Protonix Tab) 40 mg DAILY@06 PO Last administered on 04/28/16at 05:23; Admin Dose 40 MG; Start 04/11/16 at 06:00 Miscellaneous Information 1 ea NOTE XX ; Start 04/10/16 at 19:00 Glucose (Glutose) 15 gm Q15M PRN PO DECREASED GLUCOSE; Start 04/10/16 at 19:00 Glucose (Glutose) 22.5 gm Q15M PRN PO DECREASED GLUCOSE; Start 04/10/16 at 19: 00 Dextrose (D50w Syringe) 25 ml Q15M PRN IV DECREASED GLUCOSE; Start 04/10/16 at 19:00 Dextrose (D50w Syringe) 50 ml Q15M PRN IV DECREASED GLUCOSE; Start 04/10/16 at 19:00 Glucagon (Glucagen) 1 mg Q15M PRN IM DECREASED GLUCOSE; Start 04/10/16 at 19:00 Glucose (Glutose) 15 gm Q15M PRN BUCCAL DECREASED GLUCOSE; Start 04/10/16 at 19 :00 Metoprolol Tartrate (Lopressor) 100 mg BID PO Last administered on 04/28/16at 09:23; Admin Dose 100 MG; Start 04/11/16 at 09:00 Docusate Sodium (Colace) 100 mg Q12H PO Last administered on 04/27/16at 05:25; Admin Dose 100 MG; Start 04/11/16 at 19:00 Polyethylene Glycol (Miralax) 17 gm DAILY PO Last administered on 04/27/16at 09 :12; Admin Dose 17 GM; Start 04/11/16 at 13:00 Levofloxacin (Levaquin) 500 mg DAILY@06 PO Last administered on 04/28/16at 05: 23; Admin Dose 500 MG; Start 04/15/16 at 14:00 Collagenase (Santyl) 1 applic DAILY TOP Last administered on 04/28/16at 09:21; Admin Dose 1 APPLIC; Start 04/17/16 at 16:00 Allopurinol (Zyloprim) 300 mg DAILY PO Last administered on 04/28/16at 09:23; Admin Dose 300 MG; Start 04/18/16 at 09:30 IV Flush 10 ml 10 ml PRN PRN IV IV PROTOCOL; Start 04/18/16 at 11:30 Sodium Chloride (NS) 1,000 ml @ 75 mls/hr [id number] IV Last administered on at 20:56; Admin Dose 75 MLS/HR; Start 04/18/16 at 12:30 Dexamethasone (Decadron) 10 mg Q4H PRN IV REACTION Last administered on at 16:58; Admin Dose 10 MG; Start 04/18/16 at 13:00 Diphenhydramine HCl 25 mg 25 mg Q4H PRN IV ALLERGIC REACTION Last administered on 04/24/16at 16:42; Admin Dose 25 MG; Start 04/18/16 at 13:00 Ondansetron HCl/ Sodium Chloride (Zofran Inj/NS) 54 ml @ 110 mls/hr Q8H PRN IV NAUSEA; Start 04/18/16 at 13:00 Amlodipine Besylate (Norvasc) 5 mg BID PO Last administered on 04/28/16 09:23 ; Admin Dose 5 MG; Start 04/21/16 at 21:00 Lisinopril (Zestril) 20 mg BID PO Last administered on 04/28/16 09:22; Admin Dose 20 MG; Start 04/21/16 at 21:00 Hydralazine HCl (Apresoline) 10 mg Q8H PRN IV ELEVATED BLOOD PRESSURE; Start 04/21/16 at 12:00 Insulin Glargine 50 unit 50 unit QHS SC Last administered on 04/27/16at 20:58; Admin Dose 50 UNIT; Start 04/23/16 at 21:00 Vancomycin HCl 1.25 gm/Sodium Chloride 250 ml @ 83.333 mls/ hr Q12H IVPB Last administered on 04/28/16at 04:12; Admin Dose 83.333 MLS/HR; Start 04/24/16 at 16:00 Filgrastim/ Dextrose (Neupogen/D5W) 51.6 ml @ 103.2 mls/ hr DAILY@17 IVPB Last administered on 04/27/16at 20:28; Admin Dose 103.2 MLS/HR; Start 04/25/16 at 17:00 Fluconazole (Diflucan) 100 mg DAILY PO Last administered on 04/28/16 09:23; Admin Dose 100 MG; Start 04/27/16 at 09:00 Acyclovir (Zovirax) 400 mg BID PO Last administered on 04/28/16 09:22; Admin Dose 400 MG; Start 04/26/16 at 11:45 LAUREL ANDERSON Apr 28, 2016 14:56
--- NOTE | 2016-04-28 15:11 | CONS ---
Date/Time of Note Date/Time of Note DATE: 04/28/16 TIME: 15:07 Assessment/Plan Assessment/Plan Chief Complaint/Hosp Course 55-year-old gentleman with multiple medical problems including insulin dependant DM (not compliant), legal blindness at least for the past 6 months, hypertension, cardiomegaly with a chronic rt first and second toe infection, who initially presented with Left sided chest pain. Initial labs also revealed pancytopenia with a Hg 6.7 and platelets in 30's. 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 He was spiking fevers but is now afebrile. Problems: Additional Assessment/Plan -Pt is now s/p 5 days of cladribine 0.14mg/kg/day continues IV infusion x 5 days + Rituxan. -continue antibiotics per ID for osteomyelitis -neutropenia related to cladribine, continue to monitor. -continue broad spectrum antibiotics for neutropenic fevers -f/u cultures -continue Neupogen -pt will need a repeat bone marrow bx in 3 -4 weeks. this can be done as an out patient Approximately 40 min were spent at patient's bedside and in coordination of his care Consultation Date/Type/Reason Admit Date/Time Apr 10, 2016 at 16:55 Initial Consult Date 04/11/16 Type of Consultation: Hematology Reason for Consultation hairy cell leukemia Referring Provider: LAUREL ANDERSON 24 HR Interval Summary Free Text/Dictation no acute overnight events. patient continues on antibiotics for osteomyelitis Exam/Review of Systems Vital Signs Vitals Vital Signs Date Time Temp Pulse Resp B/P Pulse Ox O2 Delivery O2 Flow Rate FiO2 04/28/16 08:00 98.1 113 20 134/94 98 Room Air Intake and Output 04/27/16 04/27/16 04/28/16 15:00 23:00 07:00 Intake Total 971.6 ml 1370 ml Balance 971.6 ml 1370 ml Exam Constitutional: alert, oriented Head: atraumatic, normocephalic Eyes: other (bilateral blindness) ENMT: nl external ears & nose Neck: non-tender, supple Respiratory: clear to auscultation, normal air movement Cardiovascular: regular rate and rhythm Gastrointestinal: soft Musculoskeletal: nl extremities to inspection, nl gait and stance Extremities: normal pulses Results Result Diagram: 04/28/16 0630 04/28/16 0630 Results 24 hrs Laboratory Tests Test 04/27/16 16:40 04/27/16 20:26 04/28/16 06:30 04/28/16 07:48 Bedside Glucose 164 167 246 H Alanine Aminotransferase (ALT/SGPT) 61 Albumin 2.8 L Albumin/Globulin Ratio 0.66 Alkaline Phosphatase 205 H Anion Gap 14 Aspartate Amino Transf (AST/SGOT) 18 # Basophils # 0.0 Basophils % 1.0 Blood Morphology Comment Blood Urea Nitrogen 17 Calcium Level 7.6 L Carbon Dioxide Level 27 Chloride Level 101 Creatinine 0.82 Differential Comment MANUAL DIFF Direct Bilirubin 0.00 # Eosinophils # 0.0 Eosinophils % 1.0 Globulin 4.20 H Glucose Level 236 #H Hematocrit 23.7 L Hemoglobin 7.9 L Indirect Bilirubin 0.5 Lymphocytes # 0.7 L Lymphocytes % 95.0 H Mean Corpuscular Hemoglobin 30.3 Mean Corpuscular Hemoglobin Concent 33.3 Mean Corpuscular Volume 91.0 Mean Platelet Volume 9.2 Monocytes # 0.0 L Monocytes % 2.0 Neutrophils # 0.0 L Neutrophils % 1.0 L Nucleated Red Blood Cells # Nucleated Red Blood Cells % Platelet Count 23 *L Platelet Estimate PLT APPEAR DECREASED Potassium Level 3.5 Red Blood Count 2.60 L Red Cell Distribution Width 23.9 H Sodium Level 138 Total Bilirubin 0.5 Total Protein 7.0 White Blood Count 0.7 L Test 04/28/16 12:02 Bedside Glucose 227 H Medications Medications Current Medications Ondansetron HCl (Zofran Inj) 4 mg Q6H PRN IV NAUSEA AND/OR VOMITING; Start 04/10/16 at 19:00 Nitroglycerin (Nitroglycerin (Sl Tab) 0.4 Mg) 1 tab Q5M PRN SL CHEST PAIN; Start 04/10/16 at 19:00 Acetaminophen (Tylenol Tab) 650 mg Q6H PRN PO PAIN LEVEL 1-3 OR FEVER Last administered on 04/28/16at 03:37; Admin Dose 650 MG; Start 04/10/16 at 19:00 Acetaminophen/ Hydrocodone Bitart ([place] (5/325)) 1 tab Q6H PRN PO PAIN LEVEL 4 -6 Last administered on 04/14/16at 23:25; Admin Dose 1 TAB; Start 04/10/16 at 19: 00 Acetaminophen/ Hydrocodone Bitart ([place] (5/325)) 2 tab Q6H PRN PO PAIN LEVEL 7 -10 Last administered on 04/28/16at 09:24; Admin Dose 2 TAB; Start 04/10/16 at 19:00 Morphine Sulfate (morphine) 2 mg Q4H PRN IV PAIN LEVEL 7-10 Last administered on 04/20/16at 15:23; Admin Dose 2 MG; Start 04/10/16 at 19:00 Magnesium Hydroxide (Milk Of Mag) 30 ml DAILY PRN PO CONSTIPATION Last administered on 04/21/16at 05:00; Admin Dose 30 ML; Start 04/10/16 at 19:00 Bisacodyl (Dulcolax Supp) 10 mg DAILY PRN [place] CONSTIPATION; Start 04/10/16 at 19 :00 Pantoprazole (Protonix Tab) 40 mg DAILY@06 PO Last administered on 04/28/16at 05:23; Admin Dose 40 MG; Start 04/11/16 at 06:00 Miscellaneous Information 1 ea NOTE XX ; Start 04/10/16 at 19:00 Glucose (Glutose) 15 gm Q15M PRN PO DECREASED GLUCOSE; Start 04/10/16 at 19:00 Glucose (Glutose) 22.5 gm Q15M PRN PO DECREASED GLUCOSE; Start 04/10/16 at 19: 00 Dextrose (D50w Syringe) 25 ml Q15M PRN IV DECREASED GLUCOSE; Start 04/10/16 at 19:00 Dextrose (D50w Syringe) 50 ml Q15M PRN IV DECREASED GLUCOSE; Start 04/10/16 at 19:00 Glucagon (Glucagen) 1 mg Q15M PRN IM DECREASED GLUCOSE; Start 04/10/16 at 19:00 Glucose (Glutose) 15 gm Q15M PRN BUCCAL DECREASED GLUCOSE; Start 04/10/16 at 19 :00 Metoprolol Tartrate (Lopressor) 100 mg BID PO Last administered on 04/28/16at 09:23; Admin Dose 100 MG; Start 04/11/16 at 09:00 Docusate Sodium (Colace) 100 mg Q12H PO Last administered on 04/27/16at 05:25; Admin Dose 100 MG; Start 04/11/16 at 19:00 Polyethylene Glycol (Miralax) 17 gm DAILY PO Last administered on 12/22/16at 09 :12; Admin Dose 17 GM; Start 04/11/16 at 13:00 Levofloxacin (Levaquin) 500 mg DAILY@06 PO Last administered on 04/28/16 05: 23; Admin Dose 500 MG; Start 04/15/16 at 14:00 Collagenase (Santyl) 1 applic DAILY TOP Last administered on 04/28/16 09:21; Admin Dose 1 APPLIC; Start 04/17/16 at 16:00 Allopurinol (Zyloprim) 300 mg DAILY PO Last administered on 04/28/16 09:23; Admin Dose 300 MG; Start 04/18/16 at 09:30 IV Flush 10 ml 10 ml PRN PRN IV IV PROTOCOL; Start 04/18/16 at 11:30 Sodium Chloride (NS) 1,000 ml @ 75 mls/hr [id number] IV Last administered on 20:56; Admin Dose 75 MLS/HR; Start 04/18/16 at 12:30 Dexamethasone (Decadron) 10 mg Q4H PRN IV REACTION Last administered on 16:58; Admin Dose 10 MG; Start 04/18/16 at 13:00 Diphenhydramine HCl 25 mg 25 mg Q4H PRN IV ALLERGIC REACTION Last administered on 04/24/16 16:42; Admin Dose 25 MG; Start 04/18/16 at 13:00 Ondansetron HCl/ Sodium Chloride (Zofran Inj/NS) 54 ml @ 110 mls/hr Q8H PRN IV NAUSEA; Start 04/18/16 at 13:00 Amlodipine Besylate (Norvasc) 5 mg BID PO Last administered on 04/28/16 09:23 ; Admin Dose 5 MG; Start 04/21/16 at 21:00 Lisinopril (Zestril) 20 mg BID PO Last administered on 04/28/16 09:22; Admin Dose 20 MG; Start 04/21/16 at 21:00 Hydralazine HCl (Apresoline) 10 mg Q8H PRN IV ELEVATED BLOOD PRESSURE; Start 04/21/16 at 12:00 Insulin Glargine 50 unit 50 unit QHS SC Last administered on 04/27/16at 20:58; Admin Dose 50 UNIT; Start 04/23/16 at 21:00 Vancomycin HCl 1.25 gm/Sodium Chloride 250 ml @ 83.333 mls/ hr Q12H IVPB Last administered on 04/28/16at 04:12; Admin Dose 83.333 MLS/HR; Start 04/24/16 at 16:00 Filgrastim/ Dextrose (Neupogen/D5W) 51.6 ml @ 103.2 mls/ hr DAILY@17 IVPB Last administered on 04/27/16at 20:28; Admin Dose 103.2 MLS/HR; Start 04/25/16 at 17:00 Fluconazole (Diflucan) 100 mg DAILY PO Last administered on 04/28/16at 09:23; Admin Dose 100 MG; Start 04/27/16 at 09:00 Acyclovir (Zovirax) 400 mg BID PO Last administered on 04/28/16at 09:22; Admin Dose 400 MG; Start 04/26/16 at 11:45 TOY DWYER M.D. Apr 28, 2016 15:10
[2016-04-28] MEDS: DEXTROSE 5% IVPB SCH (16:11)
[2016-04-28] MEDS: FILGRASTIM IVPB SCH (16:11)
[2016-04-28] MEDS: ONDANSETRON 4 MG INJ IV PRN (17:03)
--- NOTE | 2016-04-28 18:08 | PN ---
DATE: 04/28/2016 SUBJECTIVE: The patient had an episode of vomiting this morning. Currently, lying comfortably in b ed, no fevers. Denies nausea or diarrhea. LABORATORY DATA: WBC 0.7 with platelets 23, BUN 17, creatinine 0.82. Vancomycin level on 6 was 12.1. MICROBIOLOGY: Blood cultures from 04/26/2016 growing gram-positive cocci in clusters, 1 out of 2 se ts. Urine culture grew coagulase-negative staph species and Radha albicans. INDWELLINGS: Left upper extremity PICC line. ANTIMICROBIALS: 1. Fluconazole. 2. Acyclovir. 3. Vancomycin. 4. Levaquin. PHYSICAL EXAMINATION: GENERAL: Obese, well-developed, middle-aged man who is awake, in no distress. HEENT: Head atraumatic, normocephalic. Sclerae anicteric. Buccal mucosa pink. NECK: Supple, trachea midline. CHEST: Rise symmetrical. Breath sounds clear, diminished at the bases. HEART: S1, S2. ABDOMEN: Soft, bowel tones present. EXTREMITIES: No cyanosis. ASSESSMENT: 1. Status post neutropenic fever secondary to neutropenia, possibly secondary to urinary tract infe ction. 2. Gram-positive cocci bacteremia, possibly contaminant, possibly secondary to urinary or PICC line . 3. Urinary tract infection with urine culture grew coagulase-negative staph and Radha albicans. 4. Right foot diabetic ulceration with osteomyelitis of the toe per MRI. 5. Diabetes. 6. Hairy cell leukemia, in chemotherapy. 7. Legally blind. 8. Left upper extremity PICC line placed on 04/18/2016. PLAN: The patient remains hemodynamically stable. He is on appropriate antimicrobials. We are goi ng to repeat blood cultures today both sets from PICC line 15 minutes apart. Dictated By: JUVENAL SANCHEZ CYBER SECURITY CONSULTANT for REJI GLORIA MD NI/NTS Conf#: [id number] DID#: [id number]
[2016-04-28] MEDS: ONDANSETRON INJ 8 MG in SOD CHLORIDE 0.9% 50 ML IV PRN (21:02)
[2016-04-28 21:05] VITALS: BP 141/83; PULSE 79; RESP 20
[2016-04-28] MEDS: INSULIN GLARGINE [LANtus] 3 ML PEN SC SCH (21:59)
[2016-04-28] MEDS: morphine 2 MG INJ IV PRN (22:37)
[2016-04-29] MEDS: VANCOMYCIN 1.25 GM in SOD CHLORIDE 0.9% 250 ML IVPB SCH ×2 (03:26→16:32)
[2016-04-29] MEDS: HYDROCODONE/APAP (5/325) TAB PO PRN ×3 (04:16→17:11)
[2016-04-29 06:32] LABS: ALBUMIN 2.9 g/dl (3.3-4.9)
[2016-04-29 06:33] LABS: POTASSIUM 3.3 mmol/L (3.5-5.1)
[2016-04-29 06:35] LABS: BILIRUBIN,INDIRECT 0.7 mg/dl (0-1.1); BILIRUBIN,TOTAL 0.7 mg/dl (0.2-1.3); CREATININE 0.84 mg/dl (0.61-1.24)
[2016-04-29 06:36] LABS: ALBUMIN/GLOBULIN RATIO 0.69; CALCIUM 7.9 mg/dl (8.4-10.2); TOTAL PROTEIN 7.1 g/dl (6.1-8.1)
[2016-04-29] MEDS: LEVOFLOXACIN 500 MG TAB PO SCH (06:45)
[2016-04-29] MEDS: DOCUSATE SODIUM 100 MG CAP PO SCH ×2 (06:45→18:08)
[2016-04-29] MEDS: PANTOPRAZOLE (EC) 40 MG TAB PO SCH (06:45)
[2016-04-29 07:13] LABS: HEMATOCRIT 27.4 % (42.0-52.0); HEMOGLOBIN 9.1 g/dl (14.0-18.0); MEAN CORPUSCULAR HEMOGLOBIN 30.1 pg (29.0-33.0); MEAN CORPUSCULAR HGB CONC 33.1 g/dl (32.0-37.0); MEAN PLATELET VOLUME 8.3 fl (7.4-10.4); RED BLOOD COUNT 3.01 10^6/ul (4.70-6.10); RED CELL DISTRIBUTION WIDTH 24.2 % (11.5-14.5); UNCORRECTED WBC 1.1 10^3/ul (4.8-10.8); WHITE BLOOD COUNT 1.1 10^3/ul (4.8-10.8)
[2016-04-29 07:19] LABS: CONDITION 1; LH ANALYZER COMMENTS 1
[2016-04-29 07:20] LABS: PLATELET COUNT 23 10^3/UL (140-440)
[2016-04-29] MEDS: ALLOPURINOL 300 MG TAB PO SCH (08:44)
[2016-04-29] MEDS: ACYCLOVIR 400 MG TAB PO SCH ×2 (08:44→20:57)
[2016-04-29] MEDS: FLUCONAZOLE 100 MG TAB PO SCH (08:44)
[2016-04-29] MEDS: METOPROLOL 100 MG TAB PO SCH ×2 (08:45→21:00)
[2016-04-29] MEDS: AMLODIPINE 5 MG TAB PO SCH ×2 (08:47→20:57)
[2016-04-29] MEDS: LISINOPRIL 20 MG TAB PO SCH ×2 (08:48→20:56)
[2016-04-29] MEDS: INSULIN ASPART [NOVOLOG] 3 ML PEN SC SCH ×6 (08:53→18:14)
[2016-04-29] MEDS: POLYETHYLENE GLYCOL 17 GM PACKET PO SCH (09:00)
[2016-04-29 09:53] VITALS: BP 125/74; PULSE 81; RESP 20
[2016-04-29] MEDS ORDERED: POTASSIUM CHLORIDE (SR) 20 MEQ TAB PO STA (11:15)
--- NOTE | 2016-04-29 11:18 | PN ---
Date/Time of Note Date/Time of Note DATE: 04/29/16 TIME: 11:18 Assessment/Plan VTE Prophylaxis VTE Prophylaxis Intervention: SCD's Lines/Catheters IV Catheter Type (from Nrsg): PICC Line Central line still needed: Yes (for IV access ) Urinary Cath still in place: No Assessment/Plan Assessment/Plan 55-year-old male with: 1. Hairy cell Leukemia. patient admitted with anemia, acute on chronic, pancytopenia, primarily thrombocytopenic. HIV negative. Neutropenic still and afebrile today Appreciate Hematology's assistance and ID recs Neupogen given per Heme, abx adjusted per ID, patient also on Acyclovir and Diflucan WBC better today and also hb up Tolerating po this AM Dr Flannery following. 2. Right 1st and 2nd toe. ESR elevated. Neutropenic post chemo. MRI foot with osteomyelitis and JOSE J negative Blood cultures NGTD and wound cultures NGTD Wound care and Dr Thomas following patient. Now on Vanco, Levaquin, Diflucan and Acyclovir 3. ? UTI, urine culture with Coag neg staph and tiffany but low CFU: currently on Vanco, Diflucan already, f/u ID recs 4. Blood cx with GPC, 1/2,? contaminant, repeat blood cx pending. On Vanco. 5. Diabetes mellitus. A1c back at 7.2 ...Continue current insulin regimen, keeping off glyburide. On Tradjenta. Increased Lantus to 50 and premeal insulin to 12 Appreciate steel rule inspector recommendations. Patient really needs to be compliant with ADA diet. BG currently up due to non compliance even inpatient stills get food from family members visiting ... 6. Cardiomegaly, EF 50%. No further episodes of NSVT since yesterday. Continue Lopressor/Bblock Electrolytes stable again today. S/p negative JOSE J 7. Hypertension. Continue beta blockers, Norvasc and Lisinopril. Also on hydralazine prn. 8. Constipation, relieved: continue Miralax and Colace scheduled and add MOM along with Dulcolax prn. 9. 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 now on acyclovir so d/c Valacyclovir ...Will need Ophthalmology eval outpatient either way if not done prior Patient blind Prophylaxis. Proton pump inhibitors for GI prophylaxis and SCDs for DVT prophylaxis. DISPOSITION: Post Chemo. F/u wound care and follow up further ID and Podiatry recs. F/u counts May require SNF at discharge. Subjective 24 Hr Interval Summary Free Text/Dictation Patient doing well today Able to tolerate some po this AM Continue IVF BG OK and WBC seems to be coming up Exam/Review of Systems Vital Signs Vitals Vital Signs Date Time Temp Pulse Resp B/P Pulse Ox O2 Delivery O2 Flow Rate FiO2 04/29/16 09:53 98.0 81 20 125/74 98 Room Air Intake and Output 04/28/16 04/28/16 04/29/16 15:00 23:00 07:00 Intake Total 1191.6 ml 2000 ml Output Total 1100 ml 1150 ml Balance 91.6 ml 850 ml Exam Constitutional: alert, oriented, other (blind), well developed Respiratory: clear to auscultation, normal air movement Cardiovascular: nl pulses, regular rate and rhythm Gastrointestinal: non-tender, soft Musculoskeletal: nl extremities to inspection Extremities: normal pulses, other (no edema, clubbing or cyanosis ) 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: FOOD SCIENTIST II-XII intact, nl mental status, nl speech, nl strength Results Result Diagram: 04/29/16 04204/29/16 0424 Results 24 hrs Laboratory Tests Test 04/28/16 12:02 04/28/16 17:07 04/28/16 21:56 04/29/16 04:20 Bedside Glucose 227 H 171 167 Blood Morphology Comment Hematocrit 27.4 L Hemoglobin 9.1 L Mean Corpuscular Hemoglobin 30.1 Mean Corpuscular Hemoglobin Concent 33.1 Mean Corpuscular Volume 91.0 Mean Platelet Volume 8.3 Platelet Count 23 *L Red Blood Count 3.01 L Red Cell Distribution Width 24.2 H White Blood Count 1.1 #L Test 04/29/16 04:24 04/29/16 07:45 04/29/16 11:13 Alanine Aminotransferase (ALT/SGPT) 50 Albumin 2.9 L Albumin/Globulin Ratio 0.69 Alkaline Phosphatase 167 H Anion Gap 12 Aspartate Amino Transf (AST/SGOT) 17 Blood Urea Nitrogen 13 Calcium Level 7.9 L Carbon Dioxide Level 28 Chloride Level 104 Creatinine 0.84 Direct Bilirubin 0.00 Globulin 4.20 H Glucose Level 117 # Indirect Bilirubin 0.7 Magnesium Level 1.9 Potassium Level 3.3 L Sodium Level 141 Total Bilirubin 0.7 Total Protein 7.1 Bedside Glucose 157 114 Medications Medications Current Medications Ondansetron HCl (Zofran Inj) 4 mg Q6H PRN IV NAUSEA AND/OR VOMITING Last administered on 04/28/16 17:03; Admin Dose 4 MG; Start 04/10/16 at 19:00 Nitroglycerin (Nitroglycerin (Sl Tab) 0.4 Mg) 1 tab Q5M PRN SL CHEST PAIN; Start 04/10/16 at 19:00 Acetaminophen (Tylenol Tab) 650 mg Q6H PRN PO PAIN LEVEL 1-3 OR FEVER Last administered on 04/28/16 03:37; Admin Dose 650 MG; Start 04/10/16 at 19:00 Acetaminophen/ Hydrocodone Bitart ([place] (5/325)) 1 tab Q6H PRN PO PAIN LEVEL 4 -6 Last administered on 04/14/16 23:25; Admin Dose 1 TAB; Start 04/10/16 at 19: 00 Acetaminophen/ Hydrocodone Bitart ([place] (5/325)) 2 tab Q6H PRN PO PAIN LEVEL 7 -10 Last administered on 04/29/16 08:50; Admin Dose 2 TAB; Start 04/10/16 at 19:00 Morphine Sulfate (morphine) 2 mg Q4H PRN IV PAIN LEVEL 7-10 Last administered on 04/28/16at 22:37; Admin Dose 2 MG; Start 04/10/16 at 19:00 Magnesium Hydroxide (Milk Of Mag) 30 ml DAILY PRN PO CONSTIPATION Last administered on 04/21/16at 05:00; Admin Dose 30 ML; Start 04/10/16 at 19:00 Bisacodyl (Dulcolax Supp) 10 mg DAILY PRN [place] CONSTIPATION; Start 04/10/16 at 19 :00 Pantoprazole (Protonix Tab) 40 mg DAILY@06 PO Last administered on 04/29/16at 06:45; Admin Dose 40 MG; Start 04/11/16 at 06:00 Miscellaneous Information 1 ea NOTE XX ; Start 04/10/16 at 19:00 Glucose (Glutose) 15 gm Q15M PRN PO DECREASED GLUCOSE; Start 04/10/16 at 19:00 Glucose (Glutose) 22.5 gm Q15M PRN PO DECREASED GLUCOSE; Start 04/10/16 at 19: 00 Dextrose (D50w Syringe) 25 ml Q15M PRN IV DECREASED GLUCOSE; Start 04/10/16 at 19:00 Dextrose (D50w Syringe) 50 ml Q15M PRN IV DECREASED GLUCOSE; Start 04/10/16 at 19:00 Glucagon (Glucagen) 1 mg Q15M PRN IM DECREASED GLUCOSE; Start 04/10/16 at 19:00 Glucose (Glutose) 15 gm Q15M PRN BUCCAL DECREASED GLUCOSE; Start 04/10/16 at 19 :00 Metoprolol Tartrate (Lopressor) 100 mg BID PO Last administered on 04/29/16at 08:45; Admin Dose 100 MG; Start 04/11/16 at 09:00 Docusate Sodium (Colace) 100 mg Q12H PO Last administered on 04/29/16at 06:45; Admin Dose 100 MG; Start 04/11/16 at 19:00 Polyethylene Glycol (Miralax) 17 gm DAILY PO Last administered on 04/27/16at 09 :12; Admin Dose 17 GM; Start 04/11/16 at 13:00 Levofloxacin (Levaquin) 500 mg DAILY@06 PO Last administered on 04/29/16at 06: 45; Admin Dose 500 MG; Start 04/15/16 at 14:00 Collagenase (Santyl) 1 applic DAILY TOP Last administered on 04/28/16at 09:21; Admin Dose 1 APPLIC; Start 04/17/16 at 16:00 Allopurinol (Zyloprim) 300 mg DAILY PO Last administered on 04/29/16at 08:44; Admin Dose 300 MG; Start 04/18/16 at 09:30 IV Flush 10 ml 10 ml PRN PRN IV IV PROTOCOL; Start 04/18/16 at 11:30 Sodium Chloride (NS) 1,000 ml @ 75 mls/hr [id number] IV Last administered on at 16:07; Admin Dose 75 MLS/HR; Start 04/18/16 at 12:30 Dexamethasone (Decadron) 10 mg Q4H PRN IV REACTION Last administered on at 16:58; Admin Dose 10 MG; Start 04/18/16 at 13:00 Diphenhydramine HCl 25 mg 25 mg Q4H PRN IV ALLERGIC REACTION Last administered on 04/24/16 16:42; Admin Dose 25 MG; Start 04/18/16 at 13:00 Ondansetron HCl/ Sodium Chloride (Zofran Inj/NS) 54 ml @ 110 mls/hr Q8H PRN IV NAUSEA Last administered on 04/28/16 21:02; Admin Dose 110 MLS/HR; Start 04/18/16 at 13:00 Amlodipine Besylate (Norvasc) 5 mg BID PO Last administered on 04/29/16 08:47 ; Admin Dose 5 MG; Start 04/21/16 at 21:00 Lisinopril (Zestril) 20 mg BID PO Last administered on 04/29/16 08:48; Admin Dose 20 MG; Start 04/21/16 at 21:00 Hydralazine HCl (Apresoline) 10 mg Q8H PRN IV ELEVATED BLOOD PRESSURE; Start 04/21/16 at 12:00 Insulin Glargine 50 unit 50 unit QHS SC Last administered on 04/28/16 21:59; Admin Dose 50 UNIT; Start 04/23/16 at 21:00 Vancomycin HCl 1.25 gm/Sodium Chloride 250 ml @ 83.333 mls/ hr Q12H IVPB Last administered on 04/29/16 03:26; Admin Dose 83.333 MLS/HR; Start 04/24/16 at 16:00 Filgrastim/ Dextrose (Neupogen/D5W) 51.6 ml @ 103.2 mls/ hr DAILY@17 IVPB Last administered on 04/28/16 16:11; Admin Dose 103.2 MLS/HR; Start 04/25/16 at 17:00 Fluconazole (Diflucan) 100 mg DAILY PO Last administered on 04/29/16 08:44; Admin Dose 100 MG; Start 04/27/16 at 09:00 Acyclovir (Zovirax) 400 mg BID PO Last administered on 04/29/16 08:44; Admin Dose 400 MG; Start 04/26/16 at 11:45 LAUREL ANDERSON Apr 29, 2016 11:18
[2016-04-29] MEDS: SOD CHLORIDE 0.9% 1,000 ML IV SCH (12:00)
[2016-04-29 12:04] LABS: PLATELET ESTIMATE PLT APPEAR DECREASED
--- NOTE | 2016-04-29 13:39 | PN ---
Date/Time of Note Date/Time of Note DATE: 04/29/16 TIME: 13:38 Assessment/Plan VTE Prophylaxis VTE Prophylaxis Intervention: ambulation Lines/Catheters IV [facility] Type (from [facility] PICC Line Central line still needed: Yes Urinary Cath still in place: No Assessment/Plan Assessment/Plan 55-year-old gentleman with multiple medical problems including insulin dependant DM (not compliant), legal blindness at least for the past 6 months, hypertension, cardiomegaly with a chronic rt first and second toe infection, who initially presented with Left sided chest pain. Initial labs also revealed pancytopenia with a Hg 6.7 and platelets in 30's. 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 He was spiking fevers but is now afebrile. Problems: Additional Assessment/Plan -Pt is now s/p cladribine 0.14mg/kg/day continues IV infusion x 5 days + Rituxan. -continue antibiotics per ID for osteomyelitis -neutropenia related to cladribine, continue to monitor. improving gradually -continue broad spectrum antibiotics for neutropenic fevers -f/u cultures -continue Neupogen -pt will need a repeat bone marrow bx in 3 -4 weeks. this can be done as an out patient Subjective 24 Hr Interval Summary Constitutional: no complaints Eyes: no complaints Exam/Review of Systems Vital Signs Vitals Vital Signs Date Time Temp Pulse Resp B/P Pulse Ox O2 Delivery O2 Flow Rate FiO2 04/29/16 09:53 98.0 81 20 125/74 98 Room Air Intake and Output 04/28/16 04/28/16 04/29/16 15:00 23:00 07:00 Intake Total 1191.6 ml 2000 ml Output Total 1100 ml 1150 ml Balance 91.6 ml 850 ml Exam Constitutional: alert, oriented Psych: no complaints Neck: supple Respiratory: normal air movement Gastrointestinal: soft Results Result Diagram: 04/29/1641904/29/164 Results 24 hrs Laboratory Tests Test 04/28/16 17:07 04/28/16 21:56 04/29/16 04:20 04/29/16 04:24 Bedside Glucose 171 167 Blood Morphology Comment Differential Comment MANUAL DIFF Eosinophils # 0.0 Eosinophils % 1.0 Hematocrit 27.4 L Hemoglobin 9.1 L Lymphocytes # 1.0 Lymphocytes % 94.0 H Mean Corpuscular Hemoglobin 30.1 Mean Corpuscular Hemoglobin Concent 33.1 Mean Corpuscular Volume 91.0 Mean Platelet Volume 8.3 Monocytes # 0.0 L Monocytes % 4.0 Neutrophils # 0.0 L Neutrophils % 1.0 L Nucleated Red Blood Cells % 1.0 H Platelet Count 23 *L Platelet Estimate PLT APPEAR DECREASED Red Blood Count 3.01 L Red Cell Distribution Width 24.2 H White Blood Count 1.1 #L Alanine Aminotransferase (ALT/SGPT) 50 Albumin 2.9 L Albumin/Globulin Ratio 0.69 Alkaline Phosphatase 167 H Anion Gap 12 Aspartate Amino Transf (AST/SGOT) 17 Blood Urea Nitrogen 13 Calcium Level 7.9 L Carbon Dioxide Level 28 Chloride Level 104 Creatinine 0.84 Direct Bilirubin 0.00 Globulin 4.20 H Glucose Level 117 # Indirect Bilirubin 0.7 Magnesium Level 1.9 Potassium Level 3.3 L Sodium Level 141 Total Bilirubin 0.7 Total Protein 7.1 Test 04/29/16 07:45 04/29/16 11:13 Bedside Glucose 157 114 Medications Medications Current Medications Ondansetron HCl (Zofran Inj) 4 mg Q6H PRN IV NAUSEA AND/OR VOMITING Last administered on 04/28/16at 17:03; Admin Dose 4 MG; Start 04/10/16 at 19:00 Nitroglycerin (Nitroglycerin (Sl Tab) 0.4 Mg) 1 tab Q5M PRN SL CHEST PAIN; Start 04/10/16 at 19:00 Acetaminophen (Tylenol Tab) 650 mg Q6H PRN PO PAIN LEVEL 1-3 OR FEVER Last administered on 04/28/16at 03:37; Admin Dose 650 MG; Start 04/10/16 at 19:00 Acetaminophen/ Hydrocodone Bitart ([place] (5/325)) 1 tab Q6H PRN PO PAIN LEVEL 4 -6 Last administered on 04/14/16at 23:25; Admin Dose 1 TAB; Start 04/10/16 at 19: 00 Acetaminophen/ Hydrocodone Bitart ([place] (5/325)) 2 tab Q6H PRN PO PAIN LEVEL 7 -10 Last administered on 04/29/16at 08:50; Admin Dose 2 TAB; Start 04/10/16 at 19:00 Morphine Sulfate (morphine) 2 mg Q4H PRN IV PAIN LEVEL 7-10 Last administered on 04/28/16at 22:37; Admin Dose 2 MG; Start 04/10/16 at 19:00 Magnesium Hydroxide (Milk Of Mag) 30 ml DAILY PRN PO CONSTIPATION Last administered on 04/21/16at 05:00; Admin Dose 30 ML; Start 04/10/16 at 19:00 Bisacodyl (Dulcolax Supp) 10 mg DAILY PRN [place] CONSTIPATION; Start 04/10/16 at 19 :00 Pantoprazole (Protonix Tab) 40 mg DAILY@06 PO Last administered on 04/29/16at 06:45; Admin Dose 40 MG; Start 04/11/16 at 06:00 Miscellaneous Information 1 ea NOTE XX ; Start 04/10/16 at 19:00 Glucose (Glutose) 15 gm Q15M PRN PO DECREASED GLUCOSE; Start 04/10/16 at 19:00 Glucose (Glutose) 22.5 gm Q15M PRN PO DECREASED GLUCOSE; Start 04/10/16 at 19: 00 Dextrose (D50w Syringe) 25 ml Q15M PRN IV DECREASED GLUCOSE; Start 04/10/16 at 19:00 Dextrose (D50w Syringe) 50 ml Q15M PRN IV DECREASED GLUCOSE; Start 04/10/16 at 19:00 Glucagon (Glucagen) 1 mg Q15M PRN IM DECREASED GLUCOSE; Start 04/10/16 at 19:00 Glucose (Glutose) 15 gm Q15M PRN BUCCAL DECREASED GLUCOSE; Start 04/10/16 at 19 :00 Metoprolol Tartrate (Lopressor) 100 mg BID PO Last administered on 04/29/16at 08:45; Admin Dose 100 MG; Start 04/11/16 at 09:00 Docusate Sodium (Colace) 100 mg Q12H PO Last administered on 04/29/16at 06:45; Admin Dose 100 MG; Start 04/11/16 at 19:00 Polyethylene Glycol (Miralax) 17 gm DAILY PO Last administered on 04/27/16at 09 :12; Admin Dose 17 GM; Start 04/11/16 at 13:00 Levofloxacin (Levaquin) 500 mg DAILY@06 PO Last administered on 04/29/16at 06: 45; Admin Dose 500 MG; Start 04/15/16 at 14:00 Collagenase (Santyl) 1 applic DAILY TOP Last administered on 04/28/16 09:21; Admin Dose 1 APPLIC; Start 04/17/16 at 16:00 Allopurinol (Zyloprim) 300 mg DAILY PO Last administered on 04/29/16 08:44; Admin Dose 300 MG; Start 04/18/16 at 09:30 IV Flush (NS 10 ml) 10 ml PRN PRN IV IV PROTOCOL; Start 04/18/16 at 11:30 Dexamethasone (Decadron) 10 mg Q4H PRN IV REACTION Last administered on 16:58; Admin Dose 10 MG; Start 04/18/16 at 13:00 Diphenhydramine HCl 25 mg 25 mg Q4H PRN IV ALLERGIC REACTION Last administered on 04/24/16 16:42; Admin Dose 25 MG; Start 04/18/16 at 13:00 Ondansetron HCl/ Sodium Chloride (Zofran Inj/NS) 54 ml @ 110 mls/hr Q8H PRN IV NAUSEA Last administered on 04/28/16 21:02; Admin Dose 110 MLS/HR; Start 04/18/16 at 13:00 Amlodipine Besylate (Norvasc) 5 mg BID PO Last administered on 04/29/16 08:47 ; Admin Dose 5 MG; Start 04/21/16 at 21:00 Lisinopril (Zestril) 20 mg BID PO Last administered on 04/29/16 08:48; Admin Dose 20 MG; Start 04/21/16 at 21:00 Hydralazine HCl (Apresoline) 10 mg Q8H PRN IV ELEVATED BLOOD PRESSURE; Start 04/21/16 at 12:00 Insulin Glargine 50 unit 50 unit QHS SC Last administered on 04/28/16 21:59; Admin Dose 50 UNIT; Start 04/23/16 at 21:00 Vancomycin HCl 1.25 gm/Sodium Chloride 250 ml @ 83.333 mls/ hr Q12H IVPB Last administered on 04/29/16 03:26; Admin Dose 83.333 MLS/HR; Start 04/24/16 at 16:00 Filgrastim/ Dextrose (Neupogen/D5W) 51.6 ml @ 103.2 mls/ hr DAILY@17 IVPB Last administered on 04/28/16 16:11; Admin Dose 103.2 MLS/HR; Start 04/25/16 at 17:00 Fluconazole (Diflucan) 100 mg DAILY PO Last administered on 04/29/16at 08:44; Admin Dose 100 MG; Start 04/27/16 at 09:00 Acyclovir 400 mg 400 mg BID PO Last administered on 04/29/16at 08:44; Admin Dose 400 MG; Start 04/26/16 at 11:45 Sodium Chloride (NS) 1,000 ml @ 75 mls/hr [id number] IV ; Start 04/29/16 at 12:00 EVERETT DOUGLAS MD Apr 29, 2016 13:39
[2016-04-29] MEDS: morphine 2 MG INJ IV PRN ×2 (13:53→20:57)
[2016-04-29] MEDS: COLLAGENASE 30 GM TUBE TOP SCH (14:00)
[2016-04-29] MEDS: DEXTROSE 5% IVPB SCH (16:31)
[2016-04-29] MEDS: FILGRASTIM IVPB SCH (16:31)
[2016-04-29 20:20] VITALS: BP 134/74; PULSE 85; RESP 20
[2016-04-29] MEDS: INSULIN GLARGINE [LANtus] 3 ML PEN SC SCH (21:03)
--- NOTE | 2016-04-29 21:30 | CONS ---
Date/Time of Note Date/Time of Note DATE: 04/29/16 TIME: 21:27 Consult Date/Type/Reason Admit Date/Time Apr 10, 2016 at 13:00 Initial Consult Date 04/11/16 Type of Consultation: ID Ordering Provider: LAUREL ANDERSON Subjective alert, feels good, no fevers, nad Objective Vital Signs Date Time Temp Pulse Resp B/P Pulse Ox O2 Delivery O2 Flow Rate FiO2 04/29/16 09:53 98.0 81 20 125/74 98 Room Air Intake and Output 04/28/16 04/28/16 04/29/16 15:00 23:00 07:00 Intake Total 1191.6 ml 2000 ml Output Total 1100 ml 1150 ml Balance 91.6 ml 850 ml Results/Medications Result Diagram: 04/29/16 0420 04/29/16 0424 Results 24 hrs Laboratory Tests Test 04/28/16 21:56 04/29/16 04:20 04/29/16 04:24 04/29/16 07:45 Bedside Glucose 167 157 Blood Morphology Comment Differential Comment MANUAL DIFF Eosinophils # 0.0 Eosinophils % 1.0 Hematocrit 27.4 L Hemoglobin 9.1 L Lymphocytes # 1.0 Lymphocytes % 94.0 H Mean Corpuscular Hemoglobin 30.1 Mean Corpuscular Hemoglobin Concent 33.1 Mean Corpuscular Volume 91.0 Mean Platelet Volume 8.3 Monocytes # 0.0 L Monocytes % 4.0 Neutrophils # 0.0 L Neutrophils % 1.0 L Nucleated Red Blood Cells % 1.0 H Platelet Count 23 *L Platelet Estimate PLT APPEAR DECREASED Red Blood Count 3.01 L Red Cell Distribution Width 24.2 H White Blood Count 1.1 #L Alanine Aminotransferase (ALT/SGPT) 50 Albumin 2.9 L Albumin/Globulin Ratio 0.69 Alkaline Phosphatase 167 H Anion Gap 12 Aspartate Amino Transf (AST/SGOT) 17 Blood Urea Nitrogen 13 Calcium Level 7.9 L Carbon Dioxide Level 28 Chloride Level 104 Creatinine 0.84 Direct Bilirubin 0.00 Globulin 4.20 H Glucose Level 117 # Indirect Bilirubin 0.7 Magnesium Level 1.9 Potassium Level 3.3 L Sodium Level 141 Total Bilirubin 0.7 Total Protein 7.1 Test 04/29/16 11:13 04/29/16 16:30 04/29/16 20:55 Bedside Glucose 114 270 H 229 H Medications Current Medications Ondansetron HCl (Zofran Inj) 4 mg Q6H PRN IV NAUSEA AND/OR VOMITING Last administered on 04/28/16at 17:03; Admin Dose 4 MG; Start 04/10/16 at 19:00 Nitroglycerin (Nitroglycerin (Sl Tab) 0.4 Mg) 1 tab Q5M PRN SL CHEST PAIN; Start 04/10/16 at 19:00 Acetaminophen (Tylenol Tab) 650 mg Q6H PRN PO PAIN LEVEL 1-3 OR FEVER Last administered on 04/28/16at 03:37; Admin Dose 650 MG; Start 04/10/16 at 19:00 Acetaminophen/ Hydrocodone Bitart ([place] (5/325)) 1 tab Q6H PRN PO PAIN LEVEL 4 -6 Last administered on 04/14/16at 23:25; Admin Dose 1 TAB; Start 04/10/16 at 19: 00 Acetaminophen/ Hydrocodone Bitart ([place] (5/325)) 2 tab Q6H PRN PO PAIN LEVEL 7 -10 Last administered on 04/29/16at 17:11; Admin Dose 2 TAB; Start 04/10/16 at 19:00 Morphine Sulfate (morphine) 2 mg Q4H PRN IV PAIN LEVEL 7-10 Last administered on 04/29/16at 20:57; Admin Dose 2 MG; Start 04/10/16 at 19:00 Magnesium Hydroxide (Milk Of Mag) 30 ml DAILY PRN PO CONSTIPATION Last administered on 04/21/16at 05:00; Admin Dose 30 ML; Start 04/10/16 at 19:00 Bisacodyl (Dulcolax Supp) 10 mg DAILY PRN [place] CONSTIPATION; Start 04/10/16 at 19 :00 Pantoprazole (Protonix Tab) 40 mg DAILY@06 PO Last administered on 04/29/16at 06:45; Admin Dose 40 MG; Start 04/11/16 at 06:00 Miscellaneous Information 1 ea NOTE XX ; Start 04/10/16 at 19:00 Glucose (Glutose) 15 gm Q15M PRN PO DECREASED GLUCOSE; Start 04/10/16 at 19:00 Glucose (Glutose) 22.5 gm Q15M PRN PO DECREASED GLUCOSE; Start 04/10/16 at 19: 00 Dextrose (D50w Syringe) 25 ml Q15M PRN IV DECREASED GLUCOSE; Start 04/10/16 at 19:00 Dextrose (D50w Syringe) 50 ml Q15M PRN IV DECREASED GLUCOSE; Start 04/10/16 at 19:00 Glucagon (Glucagen) 1 mg Q15M PRN IM DECREASED GLUCOSE; Start 04/10/16 at 19:00 Glucose (Glutose) 15 gm Q15M PRN BUCCAL DECREASED GLUCOSE; Start 04/10/16 at 19 :00 Metoprolol Tartrate (Lopressor) 100 mg BID PO Last administered on 04/29/16at 21:00; Admin Dose 100 MG; Start 04/11/16 at 09:00 Docusate Sodium (Colace) 100 mg Q12H PO Last administered on 04/29/16 06:45; Admin Dose 100 MG; Start 04/11/16 at 19:00 Polyethylene Glycol (Miralax) 17 gm DAILY PO Last administered on 04/27/16 09 :12; Admin Dose 17 GM; Start 04/11/16 at 13:00 Levofloxacin (Levaquin) 500 mg DAILY@06 PO Last administered on 04/29/16at 06: 45; Admin Dose 500 MG; Start 04/15/16 at 14:00 Collagenase (Santyl) 1 applic DAILY TOP Last administered on 04/29/16 14:00; Admin Dose 1 APPLIC; Start 04/17/16 at 16:00 Allopurinol (Zyloprim) 300 mg DAILY PO Last administered on 04/29/16at 08:44; Admin Dose 300 MG; Start 04/18/16 at 09:30 IV Flush (NS 10 ml) 10 ml PRN PRN IV IV PROTOCOL; Start 04/18/16 at 11:30 Dexamethasone (Decadron) 10 mg Q4H PRN IV REACTION Last administered on 16:58; Admin Dose 10 MG; Start 04/18/16 at 13:00 Diphenhydramine HCl 25 mg 25 mg Q4H PRN IV ALLERGIC REACTION Last administered on 04/24/16 16:42; Admin Dose 25 MG; Start 04/18/16 at 13:00 Ondansetron HCl/ Sodium Chloride (Zofran Inj/NS) 54 ml @ 110 mls/hr Q8H PRN IV NAUSEA Last administered on 04/28/16at 21:02; Admin Dose 110 MLS/HR; Start 04/18/16 at 13:00 Amlodipine Besylate (Norvasc) 5 mg BID PO Last administered on 04/29/16at 20:57 ; Admin Dose 5 MG; Start 04/21/16 at 21:00 Lisinopril (Zestril) 20 mg BID PO Last administered on 04/29/16at 20:56; Admin Dose 20 MG; Start 04/21/16 at 21:00 Hydralazine HCl (Apresoline) 10 mg Q8H PRN IV ELEVATED BLOOD PRESSURE; Start 04/21/16 at 12:00 Insulin Glargine 50 unit 50 unit QHS SC Last administered on 04/29/16at 21:03; Admin Dose 50 UNIT; Start 04/23/16 at 21:00 Vancomycin HCl 1.25 gm/Sodium Chloride 250 ml @ 83.333 mls/ hr Q12H IVPB Last administered on 04/29/16at 16:32; Admin Dose 83.333 MLS/HR; Start 04/24/16 at 16:00 Filgrastim/ Dextrose (Neupogen/D5W) 51.6 ml @ 103.2 mls/ hr DAILY@17 IVPB Last administered on 04/29/16at 16:31; Admin Dose 103.2 MLS/HR; Start 04/25/16 at 17:00 Fluconazole (Diflucan) 100 mg DAILY PO Last administered on 04/29/16at 08:44; Admin Dose 100 MG; Start 04/27/16 at 09:00 Acyclovir 400 mg 400 mg BID PO Last administered on 04/29/16at 20:57; Admin Dose 400 MG; Start 04/26/16 at 11:45 Sodium Chloride (NS) 1,000 ml @ 75 mls/hr [id number] IV Last administered on at 12:00; Admin Dose 75 MLS/HR; Start 04/29/16 at 12:00 Miscellaneous Information (*Rx Drug Level Order Reminder*) VANCO TROUGH @ 1, 500 ON ... ONCE ONCE XX ; Start 04/30/16 at 15:00; Stop 04/30/16 at 15:01 Assessment/Plan Chief Complaint/Hosp Course ANTIMICROBIALS: 1. Vancomycin 2. Levaquin. 3. Diflucan 4. Acyclovir Indwellings: LUE PICC 04/18/16 PHYSICAL EXAMINATION: GENERAL: Obese, well-developed, middle-aged man who is awake, in no distress. HEENT: Head atraumatic, normocephalic. Sclerae anicteric. Buccal mucosa pink. NECK: Supple. Trachea midline. LUNGS: Chest rise symmetrical. Breath sounds clear, diminished at bases. HEART: S1, S2. ABDOMEN: Soft. Bowel tones present. EXTREMITIES: With right foot edema ASSESSMENT: 1. Neutropenic fevers==> r/o infection 2. 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 4. Diabetes. 5. Hypertension. 6. Legally blind. PLAN: Clinically stable, urine cx + Staph, likely contaminant, repeat bld cx negative, continue abx, chemotherapy/Neupogen per oncology DW staff/dw pt Problems: JUVENAL SANCHEZ NP Apr 29, 2016 21:29
[2016-04-30] MEDS: HYDROCODONE/APAP (5/325) TAB PO PRN (00:30)
[2016-04-30] MEDS: SOD CHLORIDE 0.9% 1,000 ML IV SCH ×2 (01:20→09:51)
[2016-04-30] MEDS: VANCOMYCIN 1.25 GM in SOD CHLORIDE 0.9% 250 ML IVPB SCH ×2 (03:51→16:32)
[2016-04-30] MEDS: PANTOPRAZOLE (EC) 40 MG TAB PO SCH (05:48)
[2016-04-30] MEDS: LEVOFLOXACIN 500 MG TAB PO SCH (05:51)
[2016-04-30] MEDS: ONDANSETRON 4 MG INJ IV PRN (05:51)
[2016-04-30] MEDS: DOCUSATE SODIUM 100 MG CAP PO SCH ×2 (05:52→09:59)
[2016-04-30 05:55] LABS: HEMATOCRIT 22.2 % (42.0-52.0); HEMOGLOBIN 7.4 g/dl (14.0-18.0); MEAN CORPUSCULAR HEMOGLOBIN 30.4 pg (29.0-33.0); MEAN CORPUSCULAR HGB CONC 33.5 g/dl (32.0-37.0); MEAN CORPUSCULAR VOLUME 90.7 fl (82.0-101.0); MEAN PLATELET VOLUME 9.5 fl (7.4-10.4); RED BLOOD COUNT 2.44 10^6/ul (4.70-6.10); RED CELL DISTRIBUTION WIDTH 24.3 % (11.5-14.5); UNCORRECTED WBC 0.9 10^3/ul (4.8-10.8); WHITE BLOOD COUNT 0.9 10^3/ul (4.8-10.8)
[2016-04-30 05:59] LABS: ALBUMIN 2.7 g/dl (3.3-4.9); POTASSIUM 3.4 mmol/L (3.5-5.1)
[2016-04-30 06:01] LABS: BILIRUBIN,INDIRECT 0.6 mg/dl (0-1.1); BILIRUBIN,TOTAL 0.6 mg/dl (0.2-1.3); CREATININE 0.87 mg/dl (0.61-1.24); MAGNESIUM 1.9 mg/dl (1.7-2.5); PHOSPHORUS 2.9 mg/dl (2.5-4.9)
[2016-04-30 06:02] LABS: ALBUMIN/GLOBULIN RATIO 0.69; CALCIUM 7.4 mg/dl (8.4-10.2); TOTAL PROTEIN 6.6 g/dl (6.1-8.1)
[2016-04-30 06:08] LABS: PLATELET COUNT 24 10^3/UL (140-440)
[2016-04-30 06:09] LABS: CONDITION 1; LH ANALYZER COMMENTS 1; SUSPECT 1
[2016-04-30] MEDS: INSULIN ASPART [NOVOLOG] 3 ML PEN SC SCH ×6 (07:50→17:55)
[2016-04-30 08:00] VITALS: BP 142/87; PULSE 86; RESP 18
[2016-04-30] MEDS: POLYETHYLENE GLYCOL 17 GM PACKET PO SCH (09:00)
[2016-04-30 09:09] LABS: ANISOCYTOSIS 3+; LYMPHOCYTES # 0.8 10^3/ul (0.8-2.9); NEUTROPHIL # 0.1 10^3/ul (1.6-7.5)
[2016-04-30 09:10] LABS: HYPOCHROMASIA 2+; POIKILOCYTOSIS 1+; SCHISTOCYTES 1+; TARGET CELLS 1+; TEAR DROP CELLS 1+
[2016-04-30 09:11] LABS: PLATELET ESTIMATE PLT APPEAR DECREASED
[2016-04-30] MEDS: ONDANSETRON INJ 8 MG in SOD CHLORIDE 0.9% 50 ML IV PRN (09:51)
[2016-04-30] MEDS: FLUCONAZOLE 100 MG TAB PO SCH (09:59)
[2016-04-30] MEDS: METOPROLOL 100 MG TAB PO SCH ×2 (09:59→22:17)
[2016-04-30] MEDS: ACYCLOVIR 400 MG TAB PO SCH ×2 (10:00→22:18)
[2016-04-30] MEDS: ALLOPURINOL 300 MG TAB PO SCH (10:00)
[2016-04-30] MEDS: AMLODIPINE 5 MG TAB PO SCH ×2 (10:00→22:18)
[2016-04-30] MEDS: LISINOPRIL 20 MG TAB PO SCH ×2 (10:00→22:19)
[2016-04-30] MEDS: COLLAGENASE 30 GM TUBE TOP SCH (10:01)
[2016-04-30] MEDS ORDERED: POTASSIUM CHLORIDE (SR) 20 MEQ TAB PO STA (11:03)
--- NOTE | 2016-04-30 11:30 | PN ---
Date/Time of Note Date/Time of Note DATE: 04/30/16 TIME: 11:23 Assessment/Plan VTE Prophylaxis VTE Prophylaxis Intervention: SCD's Lines/Catheters IV Catheter Type (from Nrsg): PICC Line Central line still needed: Yes (for chemo ) Urinary Cath still in place: No Assessment/Plan Assessment/Plan 55-year-old male with: 1. Hairy cell Leukemia. patient admitted with anemia, acute on chronic, pancytopenia, primarily thrombocytopenic. HIV negative. Neutropenic still and afebrile today Appreciate Hematology's assistance and ID recs Neupogen given per Heme, abx adjusted per ID, patient also on Acyclovir and Diflucan Counts still low and Hb at 7.4 today, transfusing 2 units prbc today. No acute bleeding. Again with Nausea and unable to tolerate po Dr Flannery/Dr Lucas following. 2. Right 1st and 2nd toe cellulitis/osteomyelitis on MRI. Neutropenic post chemo. JOSE J negative Blood cultures NGTD and wound cultures NGTD Wound care and Dr Thomas following patient. On Vanco, Levaquin, Diflucan and Acyclovir 3. ? UTI, urine culture with Coag neg staph and tiffany but low CFU: currently on Vanco, Diflucan already, f/u ID recs 4. Blood cx with GPC, 1/2,? contaminant, repeat blood cx pending. On Vanco. Repeat blood cx pending. 5. Diabetes mellitus. A1c back at 7.2 ...Continue current insulin regimen, keeping off glyburide. On Tradjenta. Increased Lantus to 50 and premeal insulin to 12 Appreciate peer educator recommendations. Patient really needs to be compliant with ADA diet. BG currently up due to non compliance even inpatient stills get food from family members visiting ... 6. Cardiomegaly, EF 50%. No further episodes of NSVT since yesterday. Continue Lopressor/Bblock Electrolytes stable again today. S/p negative JOSE J 7. Hypertension. Continue beta blockers, Norvasc and Lisinopril. Also on hydralazine prn. 8. Constipation, relieved: continue Miralax and Colace scheduled and add MOM along with Dulcolax prn. 9. 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 now on acyclovir so d/c Valacyclovir ...Will need Ophthalmology eval outpatient either way if not done prior Patient blind Prophylaxis. Proton pump inhibitors for GI prophylaxis and SCDs for DVT prophylaxis. DISPOSITION: Post Chemo. F/u wound care and follow up further ID and Podiatry recs. F/u counts and tolerance of po. pRBC x 2 units today and on Neupogen May require SNF at discharge. Subjective 24 Hr Interval Summary Free Text/Dictation Patient with Nausea again, Hb @ 7.4 and will be receiving 2 units pRBC Afebrile, still Neutropenic and thrombocytopenic for now On broad spectrum abx Exam/Review of Systems Vital Signs Vitals Vital Signs Date Time Temp Pulse Resp B/P Pulse Ox O2 Delivery O2 Flow Rate FiO2 04/30/16 08:00 97.9 86 18 142/87 98 Room Air Intake and Output 04/29/16 04/29/16 04/30/16 15:00 23:00 07:00 Intake Total 1225 ml 740 ml Output Total 1200 ml 1200 ml Balance 25 ml -460 ml Exam Constitutional: alert, oriented, well developed Respiratory: clear to auscultation, normal air movement Cardiovascular: nl pulses, regular rate and rhythm Gastrointestinal: non-tender, soft Musculoskeletal: nl extremities to inspection Extremities: normal pulses, other (no edema, clubbing or cyanosis ) 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, nl mental status, nl speech, nl strength, other (blind ) Results Result Diagram: 04/30/1641904/30/16 042 Results 24 hrs Laboratory Tests Test 04/29/16 16:30 04/29/16 20:55 04/30/16 04:20 04/30/16 08:04 Bedside Glucose 270 H 229 H 80 Alanine Aminotransferase (ALT/SGPT) 43 Albumin 2.7 L Albumin/Globulin Ratio 0.69 Alkaline Phosphatase 130 H Anion Gap 12 Anisocytosis 3+ Aspartate Amino Transf (AST/SGOT) 16 Basophils # Basophils % Blood Morphology Comment Blood Urea Nitrogen 11 Calcium Level 7.4 L Carbon Dioxide Level 27 Chloride Level 105 Creatinine 0.87 Direct Bilirubin 0.00 Eosinophils # Eosinophils % Globulin 3.90 H Glucose Level 90 Hematocrit 22.2 L Hemoglobin 7.4 L Hypochromasia 2+ Indirect Bilirubin 0.6 Lymphocytes # 0.8 Lymphocytes % 92.0 H Magnesium Level 1.9 Mean Corpuscular Hemoglobin 30.4 Mean Corpuscular Hemoglobin Concent 33.5 Mean Corpuscular Volume 90.7 Mean Platelet Volume 9.5 Monocytes # 0.0 L Monocytes % 2.0 Neutrophils # 0.1 L Neutrophils % 6.0 L Nucleated Red Blood Cells # Phosphorus Level 2.9 Platelet Count 24 *L Platelet Estimate PLT APPEAR DECREASED Potassium Level 3.4 L Red Blood Count 2.44 L Red Cell Distribution Width 24.3 H Schistocytes 1+ Sodium Level 141 Target Cells 1+ Tear Drop Cells 1+ Total Bilirubin 0.6 Total Protein 6.6 White Blood Count 0.9 L Medications Medications Current Medications Ondansetron HCl (Zofran Inj) 4 mg Q6H PRN IV NAUSEA AND/OR VOMITING Last administered on 04/30/16 05:51; Admin Dose 4 MG; Start 04/10/16 at 19:00 Nitroglycerin (Nitroglycerin (Sl Tab) 0.4 Mg) 1 tab Q5M PRN SL CHEST PAIN; Start 04/10/16 at 19:00 Acetaminophen (Tylenol Tab) 650 mg Q6H PRN PO PAIN LEVEL 1-3 OR FEVER Last administered on 04/28/16at 03:37; Admin Dose 650 MG; Start 04/10/16 at 19:00 Acetaminophen/ Hydrocodone Bitart ([place] (5/325)) 1 tab Q6H PRN PO PAIN LEVEL 4 -6 Last administered on 04/14/16at 23:25; Admin Dose 1 TAB; Start 04/10/16 at 19: 00 Acetaminophen/ Hydrocodone Bitart ([place] (5/325)) 2 tab Q6H PRN PO PAIN LEVEL 7 -10 Last administered on 04/30/16at 00:30; Admin Dose 2 TAB; Start 04/10/16 at 19:00 Morphine Sulfate (morphine) 2 mg Q4H PRN IV PAIN LEVEL 7-10 Last administered on 04/29/16at 20:57; Admin Dose 2 MG; Start 04/10/16 at 19:00 Magnesium Hydroxide (Milk Of Mag) 30 ml DAILY PRN PO CONSTIPATION Last administered on 04/21/16 05:00; Admin Dose 30 ML; Start 04/10/16 at 19:00 Bisacodyl (Dulcolax Supp) 10 mg DAILY PRN [place] CONSTIPATION; Start 04/10/16 at 19 :00 Pantoprazole (Protonix Tab) 40 mg DAILY@06 PO Last administered on 04/30/16at 05:48; Admin Dose 40 MG; Start 04/11/16 at 06:00 Miscellaneous Information 1 ea NOTE XX ; Start 04/10/16 at 19:00 Glucose (Glutose) 15 gm Q15M PRN PO DECREASED GLUCOSE; Start 04/10/16 at 19:00 Glucose (Glutose) 22.5 gm Q15M PRN PO DECREASED GLUCOSE; Start 04/10/16 at 19: 00 Dextrose (D50w Syringe) 25 ml Q15M PRN IV DECREASED GLUCOSE; Start 04/10/16 at 19:00 Dextrose (D50w Syringe) 50 ml Q15M PRN IV DECREASED GLUCOSE; Start 04/10/16 at 19:00 Glucagon (Glucagen) 1 mg Q15M PRN IM DECREASED GLUCOSE; Start 04/10/16 at 19:00 Glucose (Glutose) 15 gm Q15M PRN BUCCAL DECREASED GLUCOSE; Start 04/10/16 at 19 :00 Metoprolol Tartrate (Lopressor) 100 mg BID PO Last administered on 04/30/16at 09:59; Admin Dose 100 MG; Start 04/11/16 at 09:00 Docusate Sodium (Colace) 100 mg Q12H PO Last administered on 04/30/16at 09:59; Admin Dose 100 MG; Start 04/11/16 at 19:00 Polyethylene Glycol (Miralax) 17 gm DAILY PO Last administered on 04/27/16at 09 :12; Admin Dose 17 GM; Start 04/11/16 at 13:00 Levofloxacin (Levaquin) 500 mg DAILY@06 PO Last administered on 04/30/16at 05: 51; Admin Dose 500 MG; Start 04/15/16 at 14:00 Collagenase (Santyl) 1 applic DAILY TOP Last administered on 04/30/16at 10:01; Admin Dose 1 APPLIC; Start 04/17/16 at 16:00 Allopurinol (Zyloprim) 300 mg DAILY PO Last administered on 04/30/16at 10:00; Admin Dose 300 MG; Start 04/18/16 at 09:30 IV Flush (NS 10 ml) 10 ml PRN PRN IV IV PROTOCOL; Start 04/18/16 at 11:30 Dexamethasone (Decadron) 10 mg Q4H PRN IV REACTION Last administered on 16:58; Admin Dose 10 MG; Start 04/18/16 at 13:00 Diphenhydramine HCl 25 mg 25 mg Q4H PRN IV ALLERGIC REACTION Last administered on 04/24/16 16:42; Admin Dose 25 MG; Start 04/18/16 at 13:00 Ondansetron HCl/ Sodium Chloride (Zofran Inj/NS) 54 ml @ 110 mls/hr Q8H PRN IV NAUSEA Last administered on 04/30/16 09:51; Admin Dose 110 MLS/HR; Start 04/18/16 at 13:00 Amlodipine Besylate (Norvasc) 5 mg BID PO Last administered on 04/30/16 10:00 ; Admin Dose 5 MG; Start 04/21/16 at 21:00 Lisinopril (Zestril) 20 mg BID PO Last administered on 04/30/16 10:00; Admin Dose 20 MG; Start 04/21/16 at 21:00 Hydralazine HCl (Apresoline) 10 mg Q8H PRN IV ELEVATED BLOOD PRESSURE; Start 04/21/16 at 12:00 Insulin Glargine 50 unit 50 unit QHS SC Last administered on 04/29/16 21:03; Admin Dose 50 UNIT; Start 04/23/16 at 21:00 Vancomycin HCl 1.25 gm/Sodium Chloride 250 ml @ 83.333 mls/ hr Q12H IVPB Last administered on 04/30/16 03:51; Admin Dose 83.333 MLS/HR; Start 04/24/16 at 16:00 Filgrastim/ Dextrose (Neupogen/D5W) 51.6 ml @ 103.2 mls/ hr DAILY@17 IVPB Last administered on 04/29/16 16:31; Admin Dose 103.2 MLS/HR; Start 04/25/16 at 17:00 Fluconazole (Diflucan) 100 mg DAILY PO Last administered on 04/30/16 09:59; Admin Dose 100 MG; Start 04/27/16 at 09:00 Acyclovir 400 mg 400 mg BID PO Last administered on 04/30/16 10:00; Admin Dose 400 MG; Start 04/26/16 at 11:45 Sodium Chloride (NS) 1,000 ml @ 75 mls/hr [id number] IV Last administered on at 09:51; Admin Dose 75 MLS/HR; Start 04/29/16 at 12:00 Miscellaneous Information (*Rx Drug Level Order Reminder*) VANCO TROUGH @ 1, 500 ON ... ONCE ONCE XX ; Start 04/30/16 at 15:00; Stop 04/30/16 at 15:01 LAUREL ANDERSON Apr 30, 2016 11:30
--- NOTE | 2016-04-30 13:02 | PN ---
Date/Time of Note Date/Time of Note DATE: 04/30/16 TIME: 13:00 Assessment/Plan VTE Prophylaxis VTE Prophylaxis Intervention: ambulation Lines/Catheters IV Catheter Type (from [facility]): PICC Line Central line still needed: Yes Urinary Cath still in place: No Assessment/Plan Assessment/Plan 55-year-old gentleman with multiple medical problems including insulin dependant DM (not compliant), legal blindness at least for the past 6 months, hypertension, cardiomegaly with a chronic rt first and second toe infection, who initially presented with Left sided chest pain. Initial labs also revealed pancytopenia with a Hg 6.7 and platelets in 30's. 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 He was spiking fevers but is now afebrile. Problems: Additional Assessment/Plan -Pt is now s/p cladribine 0.14mg/kg/day continues IV infusion x 5 days + Rituxan. -continue antibiotics per ID for osteomyelitis -neutropenia related to cladribine, continue to monitor. improving gradually -continue broad spectrum antibiotics for neutropenic fevers -f/u cultures -continue Neupogen -2 units prbc -pt will need a repeat bone marrow bx in 3 -4 weeks. this can be done as an out patient Subjective 24 Hr Interval Summary Constitutional: no complaints Eyes: no complaints Gastrointestinal: no complaints Musculoskeletal: no complaints Exam/Review of Systems Vital Signs Vitals Vital Signs Date Time Temp Pulse Resp B/P Pulse Ox O2 Delivery O2 Flow Rate FiO2 04/30/16 08:00 97.9 86 18 142/87 98 Room Air Intake and Output 04/29/16 04/29/16 04/30/16 15:00 23:00 07:00 Intake Total 1225 ml 740 ml Output Total 1200 ml 1200 ml Balance 25 ml -460 ml Exam rt leg dressing with no drainage Constitutional: alert, oriented Psych: no complaints Eyes: nl conjunctiva Neck: supple Respiratory: normal air movement Gastrointestinal: soft Results Result Diagram: 04/30/16 0420 04/30/16 0420 Results 24 hrs Laboratory Tests Test 04/29/16 16:30 04/29/16 20:55 04/30/16 04:20 04/30/16 08:04 Bedside Glucose 270 H 229 H 80 Alanine Aminotransferase (ALT/SGPT) 43 Albumin 2.7 L Albumin/Globulin Ratio 0.69 Alkaline Phosphatase 130 H Anion Gap 12 Anisocytosis 3+ Aspartate Amino Transf (AST/SGOT) 16 Basophils # Basophils % Blood Morphology Comment Blood Urea Nitrogen 11 Calcium Level 7.4 L Carbon Dioxide Level 27 Chloride Level 105 Creatinine 0.87 Direct Bilirubin 0.00 Eosinophils # Eosinophils % Globulin 3.90 H Glucose Level 90 Hematocrit 22.2 L Hemoglobin 7.4 L Hypochromasia 2+ Indirect Bilirubin 0.6 Lymphocytes # 0.8 Lymphocytes % 92.0 H Magnesium Level 1.9 Mean Corpuscular Hemoglobin 30.4 Mean Corpuscular Hemoglobin Concent 33.5 Mean Corpuscular Volume 90.7 Mean Platelet Volume 9.5 Monocytes # 0.0 L Monocytes % 2.0 Neutrophils # 0.1 L Neutrophils % 6.0 L Nucleated Red Blood Cells # Phosphorus Level 2.9 Platelet Count 24 *L Platelet Estimate PLT APPEAR DECREASED Potassium Level 3.4 L Red Blood Count 2.44 L Red Cell Distribution Width 24.3 H Schistocytes 1+ Sodium Level 141 Target Cells 1+ Tear Drop Cells 1+ Total Bilirubin 0.6 Total Protein 6.6 White Blood Count 0.9 L Test 04/30/16 12:02 Bedside Glucose 135 Medications Medications Current Medications Ondansetron HCl (Zofran Inj) 4 mg Q6H PRN IV NAUSEA AND/OR VOMITING Last administered on 04/30/16at 05:51; Admin Dose 4 MG; Start 04/10/16 at 19:00 Nitroglycerin (Nitroglycerin (Sl Tab) 0.4 Mg) 1 tab Q5M PRN SL CHEST PAIN; Start 04/10/16 at 19:00 Acetaminophen (Tylenol Tab) 650 mg Q6H PRN PO PAIN LEVEL 1-3 OR FEVER Last administered on 04/28/16at 03:37; Admin Dose 650 MG; Start 04/10/16 at 19:00 Acetaminophen/ Hydrocodone Bitart ([place] (5/325)) 1 tab Q6H PRN PO PAIN LEVEL 4 -6 Last administered on 04/14/16at 23:25; Admin Dose 1 TAB; Start 04/10/16 at 19: 00 Acetaminophen/ Hydrocodone Bitart ([place] (5/325)) 2 tab Q6H PRN PO PAIN LEVEL 7 -10 Last administered on 04/30/16at 00:30; Admin Dose 2 TAB; Start 04/10/16 at 19:00 Morphine Sulfate (morphine) 2 mg Q4H PRN IV PAIN LEVEL 7-10 Last administered on 04/29/16at 20:57; Admin Dose 2 MG; Start 04/10/16 at 19:00 Magnesium Hydroxide (Milk Of Mag) 30 ml DAILY PRN PO CONSTIPATION Last administered on 04/21/16at 05:00; Admin Dose 30 ML; Start 04/10/16 at 19:00 Bisacodyl (Dulcolax Supp) 10 mg DAILY PRN [place] CONSTIPATION; Start 04/10/16 at 19 :00 Pantoprazole (Protonix Tab) 40 mg DAILY@06 PO Last administered on 04/30/16at 05:48; Admin Dose 40 MG; Start 04/11/16 at 06:00 Miscellaneous Information 1 ea NOTE XX ; Start 04/10/16 at 19:00 Glucose (Glutose) 15 gm Q15M PRN PO DECREASED GLUCOSE; Start 04/10/16 at 19:00 Glucose (Glutose) 22.5 gm Q15M PRN PO DECREASED GLUCOSE; Start 04/10/16 at 19: 00 Dextrose (D50w Syringe) 25 ml Q15M PRN IV DECREASED GLUCOSE; Start 04/10/16 at 19:00 Dextrose (D50w Syringe) 50 ml Q15M PRN IV DECREASED GLUCOSE; Start 04/10/16 at 19:00 Glucagon (Glucagen) 1 mg Q15M PRN IM DECREASED GLUCOSE; Start 04/10/16 at 19:00 Glucose (Glutose) 15 gm Q15M PRN BUCCAL DECREASED GLUCOSE; Start 04/10/16 at 19 :00 Metoprolol Tartrate (Lopressor) 100 mg BID PO Last administered on 04/30/16at 09:59; Admin Dose 100 MG; Start 04/11/16 at 09:00 Docusate Sodium (Colace) 100 mg Q12H PO Last administered on 04/30/16at 09:59; Admin Dose 100 MG; Start 04/11/16 at 19:00 Polyethylene Glycol (Miralax) 17 gm DAILY PO Last administered on 04/27/16at 09 :12; Admin Dose 17 GM; Start 04/11/16 at 13:00 Levofloxacin (Levaquin) 500 mg DAILY@06 PO Last administered on 04/30/16at 05: 51; Admin Dose 500 MG; Start 04/15/16 at 14:00 Collagenase (Santyl) 1 applic DAILY TOP Last administered on 04/30/16 10:01; Admin Dose 1 APPLIC; Start 04/17/16 at 16:00 Allopurinol (Zyloprim) 300 mg DAILY PO Last administered on 04/30/16 10:00; Admin Dose 300 MG; Start 04/18/16 at 09:30 IV Flush (NS 10 ml) 10 ml PRN PRN IV IV PROTOCOL; Start 04/18/16 at 11:30 Dexamethasone (Decadron) 10 mg Q4H PRN IV REACTION Last administered on 16:58; Admin Dose 10 MG; Start 04/18/16 at 13:00 Diphenhydramine HCl 25 mg 25 mg Q4H PRN IV ALLERGIC REACTION Last administered on 04/24/16 16:42; Admin Dose 25 MG; Start 04/18/16 at 13:00 Ondansetron HCl/ Sodium Chloride (Zofran Inj/NS) 54 ml @ 110 mls/hr Q8H PRN IV NAUSEA Last administered on 04/30/16 09:51; Admin Dose 110 MLS/HR; Start 04/18/16 at 13:00 Amlodipine Besylate (Norvasc) 5 mg BID PO Last administered on 04/30/16 10:00 ; Admin Dose 5 MG; Start 04/21/16 at 21:00 Lisinopril (Zestril) 20 mg BID PO Last administered on 04/30/16 10:00; Admin Dose 20 MG; Start 04/21/16 at 21:00 Hydralazine HCl (Apresoline) 10 mg Q8H PRN IV ELEVATED BLOOD PRESSURE; Start 04/21/16 at 12:00 Insulin Glargine 50 unit 50 unit QHS SC Last administered on 04/29/16 21:03; Admin Dose 50 UNIT; Start 04/23/16 at 21:00 Vancomycin HCl 1.25 gm/Sodium Chloride 250 ml @ 83.333 mls/ hr Q12H IVPB Last administered on 04/30/16 03:51; Admin Dose 83.333 MLS/HR; Start 04/24/16 at 16:00 Filgrastim/ Dextrose (Neupogen/D5W) 51.6 ml @ 103.2 mls/ hr DAILY@17 IVPB Last administered on 04/29/16at 16:31; Admin Dose 103.2 MLS/HR; Start 04/25/16 at 17:00 Fluconazole (Diflucan) 100 mg DAILY PO Last administered on 04/30/16at 09:59; Admin Dose 100 MG; Start 04/27/16 at 09:00 Acyclovir 400 mg 400 mg BID PO Last administered on 04/30/16at 10:00; Admin Dose 400 MG; Start 04/26/16 at 11:45 Sodium Chloride (NS) 1,000 ml @ 75 mls/hr [id number] IV Last administered on at 09:51; Admin Dose 75 MLS/HR; Start 04/29/16 at 12:00 Miscellaneous Information (*Rx Drug Level Order Reminder*) VANCO TROUGH @ 1, 500 ON ... ONCE ONCE XX ; Start 04/30/16 at 15:00; Stop 04/30/16 at 15:01 EVERETT DOUGLAS MD Apr 30, 2016 13:02
--- NOTE | 2016-04-30 14:45 | CONS ---
Date/Time of Note Date/Time of Note DATE: 04/30/16 TIME: 14:44 Consult Date/Type/Reason Admit Date/Time Apr 10, 2016 at 16:55 Initial Consult Date 04/11/16 Type of Consultation: ID Ordering Provider: LAUREL ANDERSON Subjective c/o nausea, no vomiting, no diarrhea, looks comfortable, no fevers Objective Vital Signs Date Time Temp Pulse Resp B/P Pulse Ox O2 Delivery O2 Flow Rate FiO2 04/30/16 08:00 97.9 86 18 142/87 98 Room Air Intake and Output 04/29/16 04/29/16 04/30/16 15:00 23:00 07:00 Intake Total 1225 ml 740 ml Output Total 1200 ml 1200 ml Balance 25 ml -460 ml Results/Medications Result Diagram: 04/30/16 0420 04/30/16 0420 Results 24 hrs Laboratory Tests Test 04/29/16 16:30 04/29/16 20:55 04/30/16 04:20 04/30/16 08:04 Bedside Glucose 270 H 229 H 80 Alanine Aminotransferase (ALT/SGPT) 43 Albumin 2.7 L Albumin/Globulin Ratio 0.69 Alkaline Phosphatase 130 H Anion Gap 12 Anisocytosis 3+ Aspartate Amino Transf (AST/SGOT) 16 Basophils # Basophils % Blood Morphology Comment Blood Urea Nitrogen 11 Calcium Level 7.4 L Carbon Dioxide Level 27 Chloride Level 105 Creatinine 0.87 Direct Bilirubin 0.00 Eosinophils # Eosinophils % Globulin 3.90 H Glucose Level 90 Hematocrit 22.2 L Hemoglobin 7.4 L Hypochromasia 2+ Indirect Bilirubin 0.6 Lymphocytes # 0.8 Lymphocytes % 92.0 H Magnesium Level 1.9 Mean Corpuscular Hemoglobin 30.4 Mean Corpuscular Hemoglobin Concent 33.5 Mean Corpuscular Volume 90.7 Mean Platelet Volume 9.5 Monocytes # 0.0 L Monocytes % 2.0 Neutrophils # 0.1 L Neutrophils % 6.0 L Nucleated Red Blood Cells # Phosphorus Level 2.9 Platelet Count 24 *L Platelet Estimate PLT APPEAR DECREASED Potassium Level 3.4 L Red Blood Count 2.44 L Red Cell Distribution Width 24.3 H Schistocytes 1+ Sodium Level 141 Target Cells 1+ Tear Drop Cells 1+ Total Bilirubin 0.6 Total Protein 6.6 White Blood Count 0.9 L Test 04/30/16 12:02 Bedside Glucose 135 Medications Current Medications Ondansetron HCl (Zofran Inj) 4 mg Q6H PRN IV NAUSEA AND/OR VOMITING Last administered on 04/30/16at 05:51; Admin Dose 4 MG; Start 04/10/16 at 19:00 Nitroglycerin (Nitroglycerin (Sl Tab) 0.4 Mg) 1 tab Q5M PRN SL CHEST PAIN; Start 04/10/16 at 19:00 Acetaminophen (Tylenol Tab) 650 mg Q6H PRN PO PAIN LEVEL 1-3 OR FEVER Last administered on 04/28/16at 03:37; Admin Dose 650 MG; Start 04/10/16 at 19:00 Acetaminophen/ Hydrocodone Bitart ([place] (5/325)) 1 tab Q6H PRN PO PAIN LEVEL 4 -6 Last administered on 04/14/16at 23:25; Admin Dose 1 TAB; Start 04/10/16 at 19: 00 Acetaminophen/ Hydrocodone Bitart ([place] (5/325)) 2 tab Q6H PRN PO PAIN LEVEL 7 -10 Last administered on 04/30/16at 00:30; Admin Dose 2 TAB; Start 04/10/16 at 19:00 Morphine Sulfate (morphine) 2 mg Q4H PRN IV PAIN LEVEL 7-10 Last administered on 04/29/16at 20:57; Admin Dose 2 MG; Start 04/10/16 at 19:00 Magnesium Hydroxide (Milk Of Mag) 30 ml DAILY PRN PO CONSTIPATION Last administered on 04/21/16at 05:00; Admin Dose 30 ML; Start 04/10/16 at 19:00 Bisacodyl (Dulcolax Supp) 10 mg DAILY PRN [place] CONSTIPATION; Start 04/10/16 at 19 :00 Pantoprazole (Protonix Tab) 40 mg DAILY@06 PO Last administered on 04/30/16at 05:48; Admin Dose 40 MG; Start 04/11/16 at 06:00 Miscellaneous Information 1 ea NOTE XX ; Start 04/10/16 at 19:00 Glucose (Glutose) 15 gm Q15M PRN PO DECREASED GLUCOSE; Start 04/10/16 at 19:00 Glucose (Glutose) 22.5 gm Q15M PRN PO DECREASED GLUCOSE; Start 04/10/16 at 19: 00 Dextrose (D50w Syringe) 25 ml Q15M PRN IV DECREASED GLUCOSE; Start 04/10/16 at 19:00 Dextrose (D50w Syringe) 50 ml Q15M PRN IV DECREASED GLUCOSE; Start 04/10/16 at 19:00 Glucagon (Glucagen) 1 mg Q15M PRN IM DECREASED GLUCOSE; Start 04/10/16 at 19:00 Glucose (Glutose) 15 gm Q15M PRN BUCCAL DECREASED GLUCOSE; Start 04/10/16 at 19 :00 Metoprolol Tartrate (Lopressor) 100 mg BID PO Last administered on 04/30/16 09:59; Admin Dose 100 MG; Start 04/11/16 at 09:00 Docusate Sodium (Colace) 100 mg Q12H PO Last administered on 04/30/16 09:59; Admin Dose 100 MG; Start 04/11/16 at 19:00 Polyethylene Glycol (Miralax) 17 gm DAILY PO Last administered on 04/27/16 09 :12; Admin Dose 17 GM; Start 04/11/16 at 13:00 Levofloxacin (Levaquin) 500 mg DAILY@06 PO Last administered on 04/30/16 05: 51; Admin Dose 500 MG; Start 04/15/16 at 14:00 Collagenase (Santyl) 1 applic DAILY TOP Last administered on 04/30/16 10:01; Admin Dose 1 APPLIC; Start 04/17/16 at 16:00 Allopurinol (Zyloprim) 300 mg DAILY PO Last administered on 04/30/16 10:00; Admin Dose 300 MG; Start 04/18/16 at 09:30 IV Flush (NS 10 ml) 10 ml PRN PRN IV IV PROTOCOL; Start 04/18/16 at 11:30 Dexamethasone (Decadron) 10 mg Q4H PRN IV REACTION Last administered on 16:58; Admin Dose 10 MG; Start 04/18/16 at 13:00 Diphenhydramine HCl 25 mg 25 mg Q4H PRN IV ALLERGIC REACTION Last administered on 04/24/16 16:42; Admin Dose 25 MG; Start 04/18/16 at 13:00 Ondansetron HCl/ Sodium Chloride (Zofran Inj/NS) 54 ml @ 110 mls/hr Q8H PRN IV NAUSEA Last administered on 04/30/16 09:51; Admin Dose 110 MLS/HR; Start 04/18/16 at 13:00 Amlodipine Besylate (Norvasc) 5 mg BID PO Last administered on 04/30/16at 10:00 ; Admin Dose 5 MG; Start 04/21/16 at 21:00 Lisinopril (Zestril) 20 mg BID PO Last administered on 04/30/16at 10:00; Admin Dose 20 MG; Start 04/21/16 at 21:00 Hydralazine HCl (Apresoline) 10 mg Q8H PRN IV ELEVATED BLOOD PRESSURE; Start 04/21/16 at 12:00 Insulin Glargine 50 unit 50 unit QHS SC Last administered on 04/29/16at 21:03; Admin Dose 50 UNIT; Start 04/23/16 at 21:00 Vancomycin HCl 1.25 gm/Sodium Chloride 250 ml @ 83.333 mls/ hr Q12H IVPB Last administered on 04/30/16at 03:51; Admin Dose 83.333 MLS/HR; Start 04/24/16 at 16:00 Filgrastim/ Dextrose (Neupogen/D5W) 51.6 ml @ 103.2 mls/ hr DAILY@17 IVPB Last administered on 04/29/16at 16:31; Admin Dose 103.2 MLS/HR; Start 04/25/16 at 17:00 Fluconazole (Diflucan) 100 mg DAILY PO Last administered on 04/30/16at 09:59; Admin Dose 100 MG; Start 04/27/16 at 09:00 Acyclovir 400 mg 400 mg BID PO Last administered on 04/30/16at 10:00; Admin Dose 400 MG; Start 04/26/16 at 11:45 Sodium Chloride (NS) 1,000 ml @ 75 mls/hr [id number] IV Last administered on at 09:51; Admin Dose 75 MLS/HR; Start 04/29/16 at 12:00 Miscellaneous Information (*Rx Drug Level Order Reminder*) VANCO TROUGH @ 1, 500 ON ... ONCE ONCE XX ; Start 04/30/16 at 15:00; Stop 04/30/16 at 15:01 Assessment/Plan Chief Complaint/Hosp Course ANTIMICROBIALS: 1. Vancomycin 2. Levaquin. 3. Diflucan 4. Acyclovir Indwellings: LUE PICC 04/18/16 PHYSICAL EXAMINATION: GENERAL: Obese, well-developed, middle-aged man who is awake, in no distress. HEENT: Head atraumatic, normocephalic. Sclerae anicteric. Buccal mucosa pink. NECK: Supple. Trachea midline. LUNGS: Chest rise symmetrical. Breath sounds clear, diminished at bases. HEART: S1, S2. ABDOMEN: Soft. Bowel tones present. EXTREMITIES: With right foot edema ASSESSMENT: 1. Neutropenic fevers 2. 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 4. Diabetes. 5. Hypertension. 6. Legally blind. PLAN: Clinically stable, repeat bld cx negative, continue abx, chemotherapy/ Neupogen per oncology DW staff/dw pt Problems: JUVENAL SANCHEZ NP Apr 30, 2016 14:45
[2016-04-30] MEDS: ACETAMINOPHEN 325 MG TAB PO PRN ×2 (16:28→23:46)
[2016-04-30] MEDS: FILGRASTIM IVPB SCH (18:01)
[2016-04-30] MEDS: DEXTROSE 5% IVPB SCH (18:01)
[2016-04-30 21:10] VITALS: BP 130/74; PULSE 85; RESP 18
[2016-04-30] MEDS: INSULIN GLARGINE [LANtus] 3 ML PEN SC SCH (22:22)
[2016-05-01] MEDS: VANCOMYCIN 1.25 GM in SOD CHLORIDE 0.9% 250 ML IVPB SCH ×2 (03:20→16:48)
[2016-05-01] MEDS: SOD CHLORIDE 0.9% 1,000 ML IV SCH ×2 (03:21→16:48)
[2016-05-01 05:00] VITALS: BP 135/75; PULSE 77; RESP 18
[2016-05-01 05:41] LABS: HEMATOCRIT 25.5 % (42.0-52.0); HEMOGLOBIN 8.7 g/dl (14.0-18.0); MEAN CORPUSCULAR HEMOGLOBIN 30.5 pg (29.0-33.0); MEAN CORPUSCULAR HGB CONC 34.3 g/dl (32.0-37.0); MEAN CORPUSCULAR VOLUME 88.9 fl (82.0-101.0); PLATELET COUNT 70 10^3/UL (140-440); RED BLOOD COUNT 2.87 10^6/ul (4.70-6.10); RED CELL DISTRIBUTION WIDTH 21.3 % (11.5-14.5); UNCORRECTED WBC 0.8 10^3/ul (4.8-10.8); WHITE BLOOD COUNT 0.8 10^3/ul (4.8-10.8)
[2016-05-01 05:43] LABS: CONDITION 1; LH ANALYZER COMMENTS 1; MEAN PLATELET VOLUME 9.9 fl (7.4-10.4); SUSPECT 1
[2016-05-01 05:49] LABS: POTASSIUM 3.2 mmol/L (3.5-5.1)
[2016-05-01 05:52] LABS: CREATININE 0.9 mg/dl (0.61-1.24)
[2016-05-01] MEDS: PANTOPRAZOLE (EC) 40 MG TAB PO SCH (06:37)
[2016-05-01] MEDS: LEVOFLOXACIN 500 MG TAB PO SCH (06:37)
[2016-05-01] MEDS: DOCUSATE SODIUM 100 MG CAP PO SCH ×2 (06:37→19:00)
[2016-05-01] MEDS: INSULIN ASPART [NOVOLOG] 3 ML PEN SC SCH ×6 (07:50→18:15)
[2016-05-01 08:24] VITALS: BP 132/71; PULSE 83; RESP 18
[2016-05-01] MEDS: POLYETHYLENE GLYCOL 17 GM PACKET PO SCH (09:00)
[2016-05-01] MEDS: LISINOPRIL 20 MG TAB PO SCH ×2 (09:02→21:00)
[2016-05-01] MEDS: AMLODIPINE 5 MG TAB PO SCH ×2 (09:03→20:59)
[2016-05-01] MEDS: FLUCONAZOLE 100 MG TAB PO SCH (09:03)
[2016-05-01] MEDS: ACYCLOVIR 400 MG TAB PO SCH ×2 (09:03→20:59)
[2016-05-01] MEDS: ALLOPURINOL 300 MG TAB PO SCH (09:03)
[2016-05-01] MEDS: METOPROLOL 100 MG TAB PO SCH ×2 (09:04→21:00)
[2016-05-01] MEDS ORDERED: POTASSIUM CHLORIDE (SR) 20 MEQ TAB PO STA (09:15)
[2016-05-01] MEDS ORDERED: MAGNESIUM SULFATE 2 GM/50 ML 50 ML IVPB ONE (09:30)
[2016-05-01 10:23] LABS: LYMPHOCYTES # 0.8 10^3/ul (0.8-2.9)
--- NOTE | 2016-05-01 10:50 | PN ---
Date/Time of Note Date/Time of Note DATE: 05/01/16 TIME: 10:41 Assessment/Plan VTE Prophylaxis VTE Prophylaxis Intervention: SCD's Lines/Catheters IV Catheter Type (from Nrsg): PICC Line Central line still needed: Yes (for IV access and post chemo ) Urinary Cath still in place: No Assessment/Plan Assessment/Plan 55-year-old male with: 1. Hairy cell Leukemia. patient admitted with anemia, acute on chronic, pancytopenia, primarily thrombocytopenic. HIV negative. Neutropenic still and afebrile today post chemo Appreciate Hematology's assistance and ID recs On Neupogen per Heme, abx adjusted per ID, patient also on Acyclovir and Diflucan S/p 2 units pRBC yesterday, Hb better Plts up to 70 but still Neutropenic with WBC 0.8 and ANC [address] Flannery/Dr Lucas following. 2. Right 1st and 2nd toe cellulitis/osteomyelitis on MRI. Neutropenic post chemo. JOSE J negative Blood cultures NGTD and wound cultures NGTD Wound care and Dr Thomas following patient. On Vanco, Levaquin, Diflucan and Acyclovir 3. ? UTI, urine culture with Coag neg staph and tiffany but low CFU: currently on Vanco, Diflucan already, f/u ID recs 4. Blood cx with GPC, 1/2,? contaminant, repeat blood cx NGTD. On Vanco. ID following 5. Diabetes mellitus. A1c back at 7.2 ...Continue current insulin regimen, keeping off glyburide. On Tradjenta. Increased Lantus to 50 and premeal insulin to 12 Appreciate childbirth educator recommendations. Patient really needs to remain compliant with ADA diet. 6. Cardiomegaly, EF 50%. No further episodes of NSVT since yesterday. Continue Lopressor/Bblock Electrolytes stable again today. S/p negative JOSE J 7. Hypertension. Continue beta blockers, Norvasc and Lisinopril. Also on hydralazine prn. 8. Constipation, relieved: continue Miralax and Colace scheduled and add MOM along with Dulcolax prn. 9. 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 now on acyclovir so d/c Valacyclovir ...Will need Ophthalmology eval outpatient either way if not done prior Patient blind Prophylaxis. Proton pump inhibitors for GI prophylaxis and SCDs for DVT prophylaxis. DISPOSITION: Post Chemo. F/u wound care and follow up further ID and Podiatry recs. F/u counts, on Neupogen Will require SNF at discharge hopefully in the next 24 to 48 hrs if ANC comes up ?. Subjective 24 Hr Interval Summary Free Text/Dictation Patient doing Ok, better today, tolerating po Hb up post transfusion and plts up but still Neutropenic, on Neupogen Exam/Review of Systems Vital Signs Vitals Vital Signs Date Time Temp Pulse Resp B/P Pulse Ox O2 Delivery O2 Flow Rate FiO2 05/01/16 08:24 98.4 83 18 132/71 96 05/01/16 05:00 Room Air Intake and Output 04/30/16 04/30/16 05/01/16 15:00 23:00 07:00 Intake Total 2500 ml 2250 ml Output Total 2000 ml 1550 ml Balance 500 ml 700 ml Exam Constitutional: alert, oriented, other (blind), well developed Respiratory: clear to auscultation, normal air movement Cardiovascular: nl pulses, regular rate and rhythm Gastrointestinal: non-tender, soft Musculoskeletal: other (right foot with dressing in place ) Extremities: normal pulses 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: BUSINESS INSIGHT AND ANALYTICS MANAGER II-XII intact (blind ), nl mental status, nl speech, nl strength Results Result Diagram: 05/01/16 0430 05/01/16 0430 Results 24 hrs Laboratory Tests Test 04/30/16 12:02 04/30/16 14:55 04/30/16 17:05 04/30/16 22:16 Bedside Glucose 135 90 172 Vancomycin Level Trough 13.6 Test 05/01/16 03:44 05/01/16 04:30 05/01/16 09:00 Bedside Glucose 101 77 Anion Gap 14 Basophils # Basophils % Blood Morphology Comment Blood Urea Nitrogen 9 Calcium Level 8.0 L Carbon Dioxide Level 28 Chloride Level 105 Creatinine 0.90 Differential Comment MANUAL DIFF Eosinophils # Eosinophils % Glucose Level 101 Hematocrit 25.5 L Hemoglobin 8.7 L Lymphocytes # 0.8 Lymphocytes % 99.0 H Magnesium Level 1.7 Mean Corpuscular Hemoglobin 30.5 Mean Corpuscular Hemoglobin Concent 34.3 Mean Corpuscular Volume 88.9 Mean Platelet Volume 9.9 Monocytes # Monocytes % Neutrophils # Neutrophils % Nucleated Red Blood Cells # Nucleated Red Blood Cells % Platelet Count 70 #L Potassium Level 3.2 L Reactive Lymphocytes % 1.0 Red Blood Count 2.87 L Red Cell Distribution Width 21.3 H Sodium Level 144 White Blood Count 0.8 L Medications Medications Current Medications Ondansetron HCl (Zofran Inj) 4 mg Q6H PRN IV NAUSEA AND/OR VOMITING Last administered on 04/30/16 05:51; Admin Dose 4 MG; Start 04/10/16 at 19:00 Nitroglycerin (Nitroglycerin (Sl Tab) 0.4 Mg) 1 tab Q5M PRN SL CHEST PAIN; Start 04/10/16 at 19:00 Acetaminophen (Tylenol Tab) 650 mg Q6H PRN PO PAIN LEVEL 1-3 OR FEVER Last administered on 04/30/16at 23:46; Admin Dose 650 MG; Start 04/10/16 at 19:00 Acetaminophen/ Hydrocodone Bitart ([place] (5/325)) 1 tab Q6H PRN PO PAIN LEVEL 4 -6 Last administered on 04/14/16at 23:25; Admin Dose 1 TAB; Start 04/10/16 at 19: 00 Acetaminophen/ Hydrocodone Bitart ([place] (5/325)) 2 tab Q6H PRN PO PAIN LEVEL 7 -10 Last administered on 04/30/16at 00:30; Admin Dose 2 TAB; Start 04/10/16 at 19:00 Morphine Sulfate (morphine) 2 mg Q4H PRN IV PAIN LEVEL 7-10 Last administered on 04/29/16at 20:57; Admin Dose 2 MG; Start 04/10/16 at 19:00 Magnesium Hydroxide (Milk Of Mag) 30 ml DAILY PRN PO CONSTIPATION Last administered on 04/21/16at 05:00; Admin Dose 30 ML; Start 04/10/16 at 19:00 Bisacodyl (Dulcolax Supp) 10 mg DAILY PRN [place] CONSTIPATION; Start 04/10/16 at 19 :00 Pantoprazole (Protonix Tab) 40 mg DAILY@06 PO Last administered on 05/01/16at 06:37; Admin Dose 40 MG; Start 04/11/16 at 06:00 Miscellaneous Information 1 ea NOTE XX ; Start 04/10/16 at 19:00 Glucose (Glutose) 15 gm Q15M PRN PO DECREASED GLUCOSE; Start 04/10/16 at 19:00 Glucose (Glutose) 22.5 gm Q15M PRN PO DECREASED GLUCOSE; Start 04/10/16 at 19: 00 Dextrose (D50w Syringe) 25 ml Q15M PRN IV DECREASED GLUCOSE; Start 04/10/16 at 19:00 Dextrose (D50w Syringe) 50 ml Q15M PRN IV DECREASED GLUCOSE; Start 04/10/16 at 19:00 Glucagon (Glucagen) 1 mg Q15M PRN IM DECREASED GLUCOSE; Start 04/10/16 at 19:00 Glucose (Glutose) 15 gm Q15M PRN BUCCAL DECREASED GLUCOSE; Start 04/10/16 at 19 :00 Metoprolol Tartrate (Lopressor) 100 mg BID PO Last administered on 05/01/16at 09:04; Admin Dose 100 MG; Start 04/11/16 at 09:00 Docusate Sodium (Colace) 100 mg Q12H PO Last administered on 05/01/16at 06:37; Admin Dose 100 MG; Start 04/11/16 at 19:00 Polyethylene Glycol (Miralax) 17 gm DAILY PO Last administered on 04/27/16at 09 :12; Admin Dose 17 GM; Start 04/11/16 at 13:00 Levofloxacin (Levaquin) 500 mg DAILY@06 PO Last administered on 05/01/16at 06: 37; Admin Dose 500 MG; Start 04/15/16 at 14:00 Collagenase (Santyl) 1 applic DAILY TOP Last administered on 04/30/16at 10:01; Admin Dose 1 APPLIC; Start 04/17/16 at 16:00 Allopurinol (Zyloprim) 300 mg DAILY PO Last administered on 05/01/16at 09:03; Admin Dose 300 MG; Start 04/18/16 at 09:30 IV Flush (NS 10 ml) 10 ml PRN PRN IV IV PROTOCOL; Start 04/18/16 at 11:30 Dexamethasone (Decadron) 10 mg Q4H PRN IV REACTION Last administered on at 16:58; Admin Dose 10 MG; Start 04/18/16 at 13:00 Diphenhydramine HCl 25 mg 25 mg Q4H PRN IV ALLERGIC REACTION Last administered on 04/24/16at 16:42; Admin Dose 25 MG; Start 04/18/16 at 13:00 Ondansetron HCl/ Sodium Chloride (Zofran Inj/NS) 54 ml @ 110 mls/hr Q8H PRN IV NAUSEA Last administered on 04/30/16at 09:51; Admin Dose 110 MLS/HR; Start 04/18/16 at 13:00 Amlodipine Besylate (Norvasc) 5 mg BID PO Last administered on 05/01/16 09:03 ; Admin Dose 5 MG; Start 04/21/16 at 21:00 Lisinopril (Zestril) 20 mg BID PO Last administered on 05/01/16 09:02; Admin Dose 20 MG; Start 04/21/16 at 21:00 Hydralazine HCl (Apresoline) 10 mg Q8H PRN IV ELEVATED BLOOD PRESSURE; Start 04/21/16 at 12:00 Insulin Glargine 50 unit 50 unit QHS SC Last administered on 04/30/16 22:22; Admin Dose 50 UNIT; Start 04/23/16 at 21:00 Vancomycin HCl 1.25 gm/Sodium Chloride 250 ml @ 83.333 mls/ hr Q12H IVPB Last administered on 05/01/16 03:20; Admin Dose 83.333 MLS/HR; Start 04/24/16 at 16:00 Filgrastim/ Dextrose (Neupogen/D5W) 51.6 ml @ 103.2 mls/ hr DAILY@17 IVPB Last administered on 04/30/16 18:01; Admin Dose 103.2 MLS/HR; Start 04/25/16 at 17:00 Fluconazole (Diflucan) 100 mg DAILY PO Last administered on 05/01/16 09:03; Admin Dose 100 MG; Start 04/27/16 at 09:00 Acyclovir 400 mg 400 mg BID PO Last administered on 05/01/16 09:03; Admin Dose 400 MG; Start 04/26/16 at 11:45 Sodium Chloride 1,000 ml @ 75 mls/hr [id number] IV Last administered on 09:51; Admin Dose 75 MLS/HR; Start 04/29/16 at 12:00 Magnesium Sulfate (Magnesium Sulfate 2 Gm/50 ml) 50 ml @ 25 mls/hr ONCE ONCE IVPB ; Start 05/01/16 at 09:30; Stop 05/01/16 at 11:29 LAUREL ANDERSON May 01, 2016 10:50
--- NOTE | 2016-05-01 14:00 | PN ---
Date/Time of Note Date/Time of Note DATE: 05/01/16 TIME: 13:57 Assessment/Plan VTE Prophylaxis VTE Prophylaxis Intervention: anti-embolic stocking Lines/Catheters IV Catheter Type (from Nrs): PICC Line Central line still needed: Yes Urinary Cath still in place: No Assessment/Plan Assessment/Plan 55-year-old gentleman with multiple medical problems including insulin dependant DM (not compliant), legal blindness at least for the past 6 months, hypertension, cardiomegaly with a chronic rt first and second toe infection, who initially presented with Left sided chest pain. Initial labs also revealed pancytopenia with a Hg 6.7 and platelets in 30's. 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 He was spiking fevers but is now afebrile. Problems: Additional Assessment/Plan -Pt is now s/p cladribine 0.14mg/kg/day continues IV infusion x 5 days + Rituxan. -continue antibiotics per ID for osteomyelitis -neutropenia related to cladribine, continue to monitor. improving gradually -continue broad spectrum antibiotics for neutropenic fevers -f/u cultures -2 units prbc and hgb now more than 8 -platelets now on own better than 70 and hopefully sign of early BM recovery -pt will need a repeat bone marrow bx in 3-4 weeks. this can be done as an out patient Subjective 24 Hr Interval Summary Free Text/Dictation tired and slight flat affect Constitutional: no complaints Respiratory: no complaints Gastrointestinal: no complaints Exam/Review of Systems Vital Signs Vitals Vital Signs Date Time Temp Pulse Resp B/P Pulse Ox O2 Delivery O2 Flow Rate FiO2 05/01/16 08:24 98.4 83 18 132/71 96 05/01/16 05:00 Room Air Intake and Output 04/30/16 04/30/16 05/01/16 14:59 22:59 06:59 Intake Total 2500 ml 2250 ml Output Total 2000 ml 1550 ml Balance 500 ml 700 ml Exam Constitutional: alert, oriented Psych: depression Neck: supple Respiratory: normal air movement Results Result Diagram: 05/01/16 0430 05/01/16 0430 Results 24 hrs Laboratory Tests Test 04/30/16 14:55 04/30/16 17:05 04/30/16 22:16 05/01/16 03:44 Vancomycin Level Trough 13.6 Bedside Glucose 90 172 101 Test 05/01/16 04:30 05/01/16 09:00 05/01/16 12:53 Anion Gap 14 Basophils # Basophils % Blood Morphology Comment Blood Urea Nitrogen 9 Calcium Level 8.0 L Carbon Dioxide Level 28 Chloride Level 105 Creatinine 0.90 Differential Comment MANUAL DIFF Eosinophils # Eosinophils % Glucose Level 101 Hematocrit 25.5 L Hemoglobin 8.7 L Lymphocytes # 0.8 Lymphocytes % 99.0 H Magnesium Level 1.7 Mean Corpuscular Hemoglobin 30.5 Mean Corpuscular Hemoglobin Concent 34.3 Mean Corpuscular Volume 88.9 Mean Platelet Volume 9.9 Monocytes # Monocytes % Neutrophils # Neutrophils % Nucleated Red Blood Cells # Nucleated Red Blood Cells % Platelet Count 70 #L Potassium Level 3.2 L Reactive Lymphocytes % 1.0 Red Blood Count 2.87 L Red Cell Distribution Width 21.3 H Sodium Level 144 White Blood Count 0.8 L Bedside Glucose 77 71 Medications Medications Current Medications Ondansetron HCl (Zofran Inj) 4 mg Q6H PRN IV NAUSEA AND/OR VOMITING Last administered on 04/30/16at 05:51; Admin Dose 4 MG; Start 04/10/16 at 19:00 Nitroglycerin (Nitroglycerin (Sl Tab) 0.4 Mg) 1 tab Q5M PRN SL CHEST PAIN; Start 04/10/16 at 19:00 Acetaminophen (Tylenol Tab) 650 mg Q6H PRN PO PAIN LEVEL 1-3 OR FEVER Last administered on 04/30/16at 23:46; Admin Dose 650 MG; Start 04/10/16 at 19:00 Acetaminophen/ Hydrocodone Bitart ([employer] (5/325)) 1 tab Q6H PRN PO PAIN LEVEL 4 -6 Last administered on 04/14/16at 23:25; Admin Dose 1 TAB; Start 04/10/16 at 19: 00 Acetaminophen/ Hydrocodone Bitart ([employer] (5/325)) 2 tab Q6H PRN PO PAIN LEVEL 7 -10 Last administered on 04/30/16at 00:30; Admin Dose 2 TAB; Start 04/10/16 at 19:00 Morphine Sulfate (morphine) 2 mg Q4H PRN IV PAIN LEVEL 7-10 Last administered on 04/29/16at 20:57; Admin Dose 2 MG; Start 04/10/16 at 19:00 Magnesium Hydroxide (Milk Of Mag) 30 ml DAILY PRN PO CONSTIPATION Last administered on 04/21/16at 05:00; Admin Dose 30 ML; Start 04/10/16 at 19:00 Bisacodyl (Dulcolax Supp) 10 mg DAILY PRN [place] CONSTIPATION; Start 04/10/16 at 19 :00 Pantoprazole (Protonix Tab) 40 mg DAILY@06 PO Last administered on 05/01/16at 06:37; Admin Dose 40 MG; Start 04/11/16 at 06:00 Miscellaneous Information 1 ea NOTE XX ; Start 04/10/16 at 19:00 Glucose (Glutose) 15 gm Q15M PRN PO DECREASED GLUCOSE; Start 04/10/16 at 19:00 Glucose (Glutose) 22.5 gm Q15M PRN PO DECREASED GLUCOSE; Start 04/10/16 at 19: 00 Dextrose (D50w Syringe) 25 ml Q15M PRN IV DECREASED GLUCOSE; Start 04/10/16 at 19:00 Dextrose (D50w Syringe) 50 ml Q15M PRN IV DECREASED GLUCOSE; Start 04/10/16 at 19:00 Glucagon (Glucagen) 1 mg Q15M PRN IM DECREASED GLUCOSE; Start 04/10/16 at 19:00 Glucose (Glutose) 15 gm Q15M PRN BUCCAL DECREASED GLUCOSE; Start 04/10/16 at 19 :00 Metoprolol Tartrate (Lopressor) 100 mg BID PO Last administered on 05/01/16at 09:04; Admin Dose 100 MG; Start 04/11/16 at 09:00 Docusate Sodium (Colace) 100 mg Q12H PO Last administered on 05/01/16at 06:37; Admin Dose 100 MG; Start 04/11/16 at 19:00 Polyethylene Glycol (Miralax) 17 gm DAILY PO Last administered on 04/27/16at 09 :12; Admin Dose 17 GM; Start 04/11/16 at 13:00 Levofloxacin (Levaquin) 500 mg DAILY@06 PO Last administered on 05/01/16at 06: 37; Admin Dose 500 MG; Start 04/15/16 at 14:00 Collagenase (Santyl) 1 applic DAILY TOP Last administered on 04/30/16at 10:01; Admin Dose 1 APPLIC; Start 04/17/16 at 16:00 Allopurinol (Zyloprim) 300 mg DAILY PO Last administered on 05/01/16 09:03; Admin Dose 300 MG; Start 04/18/16 at 09:30 IV Flush (NS 10 ml) 10 ml PRN PRN IV IV PROTOCOL; Start 04/18/16 at 11:30 Dexamethasone (Decadron) 10 mg Q4H PRN IV REACTION Last administered on 16:58; Admin Dose 10 MG; Start 04/18/16 at 13:00 Diphenhydramine HCl 25 mg 25 mg Q4H PRN IV ALLERGIC REACTION Last administered on 04/24/16 16:42; Admin Dose 25 MG; Start 04/18/16 at 13:00 Ondansetron HCl/ Sodium Chloride (Zofran Inj/NS) 54 ml @ 110 mls/hr Q8H PRN IV NAUSEA Last administered on 04/30/16at 09:51; Admin Dose 110 MLS/HR; Start 04/18/16 at 13:00 Amlodipine Besylate (Norvasc) 5 mg BID PO Last administered on 05/01/16 09:03 ; Admin Dose 5 MG; Start 04/21/16 at 21:00 Lisinopril (Zestril) 20 mg BID PO Last administered on 05/01/16 09:02; Admin Dose 20 MG; Start 04/21/16 at 21:00 Hydralazine HCl (Apresoline) 10 mg Q8H PRN IV ELEVATED BLOOD PRESSURE; Start 04/21/16 at 12:00 Insulin Glargine 50 unit 50 unit QHS SC Last administered on 04/30/16at 22:22; Admin Dose 50 UNIT; Start 04/23/16 at 21:00 Vancomycin HCl 1.25 gm/Sodium Chloride 250 ml @ 83.333 mls/ hr Q12H IVPB Last administered on 05/01/16 03:20; Admin Dose 83.333 MLS/HR; Start 04/24/16 at 16:00 Filgrastim/ Dextrose (Neupogen/D5W) 51.6 ml @ 103.2 mls/ hr DAILY@17 IVPB Last administered on 04/30/16at 18:01; Admin Dose 103.2 MLS/HR; Start 04/25/16 at 17:00 Fluconazole (Diflucan) 100 mg DAILY PO Last administered on 05/01/16at 09:03; Admin Dose 100 MG; Start 04/27/16 at 09:00 Acyclovir 400 mg 400 mg BID PO Last administered on 05/01/16at 09:03; Admin Dose 400 MG; Start 04/26/16 at 11:45 Sodium Chloride (NS) 1,000 ml @ 75 mls/hr [id number] IV Last administered on 09:51; Admin Dose 75 MLS/HR; Start 04/29/16 at 12:00 EVERETT DOUGLAS MD May 01, 2016 13:59
--- NOTE | 2016-05-01 14:48 | CONS ---
Date/Time of Note Date/Time of Note DATE: 05/01/16 TIME: 14:46 Consult Date/Type/Reason Admit Date/Time Apr 10, 2016 at 16:55 Initial Consult Date 04/11/16 Type of Consultation: ID Ordering Provider: LAUREL ANDERSON Subjective no acute changes, afebrile, nad Objective Vital Signs Date Time Temp Pulse Resp B/P Pulse Ox O2 Delivery O2 Flow Rate FiO2 05/01/16 08:24 98.4 83 18 132/71 96 05/01/16 05:00 Room Air Intake and Output 04/30/16 04/30/16 05/01/16 15:00 23:00 07:00 Intake Total 2500 ml 2250 ml Output Total 2000 ml 1550 ml Balance 500 ml 700 ml Results/Medications Result Diagram: 05/01/16 0430 05/01/16 0430 Results 24 hrs Laboratory Tests Test 04/30/16 14:55 04/30/16 17:05 04/30/16 22:16 05/01/16 03:44 Vancomycin Level Trough 13.6 Bedside Glucose 90 172 101 Test 05/01/16 04:30 05/01/16 09:00 05/01/16 12:53 Anion Gap 14 Basophils # Basophils % Blood Morphology Comment Blood Urea Nitrogen 9 Calcium Level 8.0 L Carbon Dioxide Level 28 Chloride Level 105 Creatinine 0.90 Differential Comment MANUAL DIFF Eosinophils # Eosinophils % Glucose Level 101 Hematocrit 25.5 L Hemoglobin 8.7 L Lymphocytes # 0.8 Lymphocytes % 99.0 H Magnesium Level 1.7 Mean Corpuscular Hemoglobin 30.5 Mean Corpuscular Hemoglobin Concent 34.3 Mean Corpuscular Volume 88.9 Mean Platelet Volume 9.9 Monocytes # Monocytes % Neutrophils # Neutrophils % Nucleated Red Blood Cells # Nucleated Red Blood Cells % Platelet Count 70 #L Potassium Level 3.2 L Reactive Lymphocytes % 1.0 Red Blood Count 2.87 L Red Cell Distribution Width 21.3 H Sodium Level 144 White Blood Count 0.8 L Bedside Glucose 77 71 Medications Current Medications Ondansetron HCl (Zofran Inj) 4 mg Q6H PRN IV NAUSEA AND/OR VOMITING Last administered on 04/30/16at 05:51; Admin Dose 4 MG; Start 04/10/16 at 19:00 Nitroglycerin (Nitroglycerin (Sl Tab) 0.4 Mg) 1 tab Q5M PRN SL CHEST PAIN; Start 04/10/16 at 19:00 Acetaminophen (Tylenol Tab) 650 mg Q6H PRN PO PAIN LEVEL 1-3 OR FEVER Last administered on 04/30/16at 23:46; Admin Dose 650 MG; Start 04/10/16 at 19:00 Acetaminophen/ Hydrocodone Bitart ([place] (5/325)) 1 tab Q6H PRN PO PAIN LEVEL 4 -6 Last administered on 04/14/16at 23:25; Admin Dose 1 TAB; Start 04/10/16 at 19: 00 Acetaminophen/ Hydrocodone Bitart ([place] (5/325)) 2 tab Q6H PRN PO PAIN LEVEL 7 -10 Last administered on 04/30/16at 00:30; Admin Dose 2 TAB; Start 04/10/16 at 19:00 Morphine Sulfate (morphine) 2 mg Q4H PRN IV PAIN LEVEL 7-10 Last administered on 04/29/16at 20:57; Admin Dose 2 MG; Start 04/10/16 at 19:00 Magnesium Hydroxide (Milk Of Mag) 30 ml DAILY PRN PO CONSTIPATION Last administered on 04/21/16at 05:00; Admin Dose 30 ML; Start 04/10/16 at 19:00 Bisacodyl (Dulcolax Supp) 10 mg DAILY PRN [place] CONSTIPATION; Start 04/10/16 at 19 :00 Pantoprazole (Protonix Tab) 40 mg DAILY@06 PO Last administered on 05/01/16at 06:37; Admin Dose 40 MG; Start 04/11/16 at 06:00 Miscellaneous Information 1 ea NOTE XX ; Start 04/10/16 at 19:00 Glucose (Glutose) 15 gm Q15M PRN PO DECREASED GLUCOSE; Start 04/10/16 at 19:00 Glucose (Glutose) 22.5 gm Q15M PRN PO DECREASED GLUCOSE; Start 04/10/16 at 19: 00 Dextrose (D50w Syringe) 25 ml Q15M PRN IV DECREASED GLUCOSE; Start 04/10/16 at 19:00 Dextrose (D50w Syringe) 50 ml Q15M PRN IV DECREASED GLUCOSE; Start 04/10/16 at 19:00 Glucagon (Glucagen) 1 mg Q15M PRN IM DECREASED GLUCOSE; Start 04/10/16 at 19:00 Glucose (Glutose) 15 gm Q15M PRN BUCCAL DECREASED GLUCOSE; Start 04/10/16 at 19 :00 Metoprolol Tartrate (Lopressor) 100 mg BID PO Last administered on 05/01/16 09:04; Admin Dose 100 MG; Start 04/11/16 at 09:00 Docusate Sodium (Colace) 100 mg Q12H PO Last administered on 05/01/16 06:37; Admin Dose 100 MG; Start 04/11/16 at 19:00 Polyethylene Glycol (Miralax) 17 gm DAILY PO Last administered on 04/27/16 09 :12; Admin Dose 17 GM; Start 04/11/16 at 13:00 Levofloxacin (Levaquin) 500 mg DAILY@06 PO Last administered on 05/01/16 06: 37; Admin Dose 500 MG; Start 04/15/16 at 14:00 Collagenase (Santyl) 1 applic DAILY TOP Last administered on 04/30/16 10:01; Admin Dose 1 APPLIC; Start 04/17/16 at 16:00 Allopurinol (Zyloprim) 300 mg DAILY PO Last administered on 05/01/16 09:03; Admin Dose 300 MG; Start 04/18/16 at 09:30 IV Flush (NS 10 ml) 10 ml PRN PRN IV IV PROTOCOL; Start 04/18/16 at 11:30 Dexamethasone (Decadron) 10 mg Q4H PRN IV REACTION Last administered on 16:58; Admin Dose 10 MG; Start 04/18/16 at 13:00 Diphenhydramine HCl 25 mg 25 mg Q4H PRN IV ALLERGIC REACTION Last administered on 04/24/16 16:42; Admin Dose 25 MG; Start 04/18/16 at 13:00 Ondansetron HCl/ Sodium Chloride (Zofran Inj/NS) 54 ml @ 110 mls/hr Q8H PRN IV NAUSEA Last administered on 04/30/16 09:51; Admin Dose 110 MLS/HR; Start 04/18/16 at 13:00 Amlodipine Besylate (Norvasc) 5 mg BID PO Last administered on 05/01/16 09:03 ; Admin Dose 5 MG; Start 04/21/16 at 21:00 Lisinopril (Zestril) 20 mg BID PO Last administered on 12/26/16at 09:02; Admin Dose 20 MG; Start 04/21/16 at 21:00 Hydralazine HCl (Apresoline) 10 mg Q8H PRN IV ELEVATED BLOOD PRESSURE; Start 04/21/16 at 12:00 Insulin Glargine 50 unit 50 unit QHS SC Last administered on 04/30/16at 22:22; Admin Dose 50 UNIT; Start 04/23/16 at 21:00 Vancomycin HCl 1.25 gm/Sodium Chloride 250 ml @ 83.333 mls/ hr Q12H IVPB Last administered on 05/01/16at 03:20; Admin Dose 83.333 MLS/HR; Start 04/24/16 at 16:00 Filgrastim/ Dextrose (Neupogen/D5W) 51.6 ml @ 103.2 mls/ hr DAILY@17 IVPB Last administered on 04/30/16at 18:01; Admin Dose 103.2 MLS/HR; Start 04/25/16 at 17:00 Fluconazole (Diflucan) 100 mg DAILY PO Last administered on 05/01/16at 09:03; Admin Dose 100 MG; Start 04/27/16 at 09:00 Acyclovir 400 mg 400 mg BID PO Last administered on 05/01/16 09:03; Admin Dose 400 MG; Start 04/26/16 at 11:45 Sodium Chloride (NS) 1,000 ml @ 75 mls/hr [id number] IV Last administered on at 09:51; Admin Dose 75 MLS/HR; Start 04/29/16 at 12:00 Assessment/Plan Chief Complaint/Hosp Course ANTIMICROBIALS: 1. Vancomycin 2. Levaquin. 3. Diflucan 4. Acyclovir Indwellings: LUE PICC 04/18/16 PHYSICAL EXAMINATION: GENERAL: Obese, well-developed, middle-aged man who is awake, in no distress. HEENT: Head atraumatic, normocephalic. Sclerae anicteric. Buccal mucosa pink. NECK: Supple. Trachea midline. LUNGS: Chest rise symmetrical. Breath sounds clear, diminished at bases. HEART: S1, S2. ABDOMEN: Soft. Bowel tones present. EXTREMITIES: With right foot edema ASSESSMENT: 1. 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 4. Diabetes. 5. Hypertension. 6. Legally blind. PLAN: Remains stable, repeat bld cx negative, continue abx, chemotherapy/ Neupogen per oncology [facility] staff Problems: JUVENAL SANCHEZ NP May 01, 2016 14:48
[2016-05-01] MEDS: DEXTROSE 5% IVPB SCH (18:08)
[2016-05-01] MEDS: FILGRASTIM IVPB SCH (18:08)
[2016-05-01] MEDS: COLLAGENASE 30 GM TUBE TOP SCH (18:10)
[2016-05-01 20:00] VITALS: BP 130/83; PULSE 95; RESP 20
[2016-05-01] MEDS: INSULIN GLARGINE [LANtus] 3 ML PEN SC SCH (21:10)
[2016-05-02] MEDS: VANCOMYCIN 1.25 GM in SOD CHLORIDE 0.9% 250 ML IVPB SCH ×2 (04:26→16:20)
[2016-05-02] MEDS: SOD CHLORIDE 0.9% 1,000 ML IV SCH ×2 (06:06→20:38)
[2016-05-02] MEDS: PANTOPRAZOLE (EC) 40 MG TAB PO SCH (06:07)
[2016-05-02] MEDS: LEVOFLOXACIN 500 MG TAB PO SCH (06:07)
[2016-05-02] MEDS: DOCUSATE SODIUM 100 MG CAP PO SCH ×2 (06:08→19:00)
[2016-05-02 06:25] LABS: HEMATOCRIT 25.4 % (42.0-52.0); HEMOGLOBIN 8.8 g/dl (14.0-18.0); MEAN CORPUSCULAR HGB CONC 34.8 g/dl (32.0-37.0); MEAN CORPUSCULAR VOLUME 89.1 fl (82.0-101.0); RED BLOOD COUNT 2.85 10^6/ul (4.70-6.10); RED CELL DISTRIBUTION WIDTH 21.6 % (11.5-14.5); UNCORRECTED WBC 0.6 10^3/ul (4.8-10.8); WHITE BLOOD COUNT 0.6 10^3/ul (4.8-10.8)
[2016-05-02 06:35] LABS: MAGNESIUM 1.8 mg/dl (1.7-2.5); PHOSPHORUS 3.3 mg/dl (2.5-4.9)
[2016-05-02 06:37] LABS: POTASSIUM 3.3 mmol/L (3.5-5.1)
[2016-05-02 06:40] LABS: CREATININE 0.88 mg/dl (0.61-1.24)
[2016-05-02 06:41] LABS: CALCIUM 7.8 mg/dl (8.4-10.2)
[2016-05-02 07:24] LABS: CONDITION 1; LH ANALYZER COMMENTS 1; MEAN PLATELET VOLUME 9.5 fl (7.4-10.4); PLATELET COUNT 139 10^3/UL (140-440); SUSPECT 1
[2016-05-02] MEDS: INSULIN ASPART [NOVOLOG] 3 ML PEN SC SCH ×6 (07:50→19:19)
[2016-05-02 08:00] VITALS: BP 147/84; PULSE 20; RESP 20
[2016-05-02] MEDS ORDERED: POTASSIUM CHLORIDE (SR) 20 MEQ TAB PO STA (08:55)
[2016-05-02] MEDS: FLUCONAZOLE 100 MG TAB PO SCH (09:00)
[2016-05-02] MEDS: COLLAGENASE 30 GM TUBE TOP SCH ×2 (09:00→21:44)
[2016-05-02] MEDS: ALLOPURINOL 300 MG TAB PO SCH (09:01)
[2016-05-02] MEDS: ACYCLOVIR 400 MG TAB PO SCH ×2 (09:01→20:35)
[2016-05-02] MEDS: LISINOPRIL 20 MG TAB PO SCH ×2 (09:01→20:36)
[2016-05-02] MEDS: POLYETHYLENE GLYCOL 17 GM PACKET PO SCH (09:02)
[2016-05-02] MEDS: METOPROLOL 100 MG TAB PO SCH ×2 (09:02→20:35)
[2016-05-02] MEDS: AMLODIPINE 5 MG TAB PO SCH ×2 (09:03→20:35)
[2016-05-02] MEDS ORDERED: MAGNESIUM SULFATE 2 GM/50 ML 50 ML IVPB ONE (10:00)
[2016-05-02 11:38] LABS: LYMPHOCYTES # 0.6 10^3/ul (0.8-2.9)
--- NOTE | 2016-05-02 13:44 | PN ---
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 HIV negative. Appreciate Hematology's assistance and ID recs On Neupogen per Heme, abx adjusted per ID, patient also on Acyclovir and Diflucan S/p 2 units pRBC this past weekend. Stable Hb and Plts up to 130's but still Neutropenic with WBC 0.6 and ANC still [address] Flannery/Dr Lucas following. 2. Right 1st and 2nd toe cellulitis/osteomyelitis on MRI. Neutropenic post chemo. JOSE J negative Blood cultures NGTD and wound cultures NGTD Wound care and Dr Thomas following patient. On Vanco, Levaquin, Diflucan and Acyclovir per ID 3. ? UTI, urine culture with Coag neg staph and tiffany but low CFU: currently on Vanco, Diflucan already, f/u ID recs 4. Blood cx with GPC, 1/2,? contaminant, repeat blood cx NGTD. On Vanco. ID following 5. Diabetes mellitus. A1c back at 7.2 ...Continue current insulin regimen, keeping off glyburide. On Tradjenta. Decreased Lantus back to 40 and premeal insulin to 6 due to episodes of mild hypoglycemia this AM Appreciate clinical document improvement educator recommendations. Patient more compliant with ADA diet now. 6. Cardiomegaly, EF 50%. No further episodes of NSVT since yesterday. Continue Lopressor/Bblock Electrolytes stable again today. S/p negative JOSE J 7. Hypertension. Continue beta blockers, Norvasc and Lisinopril. Also on hydralazine prn. 8. Constipation, relieved: continue Miralax and Colace scheduled and add MOM along with Dulcolax prn. 9. 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 now on acyclovir so d/c Valacyclovir ...Will need Ophthalmology eval outpatient either way if not done prior Patient blind Prophylaxis. Proton pump inhibitors for GI prophylaxis and SCDs for DVT prophylaxis. DISPOSITION: Post Chemo. F/u wound care and follow up further ID and Podiatry recs. F/u counts, on Neupogen Will require SNF at discharge hopefully in the next 48 hrs if ANC comes up?. Subjective 24 Hr Interval Summary Free Text/Dictation No acute events Patient feels better today but still with ANC 0 and episode of mild Hypoglycemia this AM Rest of counts better and appetite better Exam/Review of Systems Vital Signs Vitals Vital Signs Date Time Temp Pulse Resp B/P Pulse Ox O2 Delivery O2 Flow Rate FiO2 05/02/16 08:00 98.5 20 20 147/84 98 Room Air Intake and Output 05/01/16 05/01/16 05/02/16 15:00 23:00 07:00 Intake Total 50 ml 1810 ml 2600 ml Output Total 3600 ml 2200 ml Balance 50 ml -1790 ml 400 ml Exam Constitutional: alert, oriented, other (blind ), well developed Respiratory: clear to auscultation, normal air movement Cardiovascular: nl pulses, regular rate and rhythm Gastrointestinal: non-tender, soft Musculoskeletal: other (right foot with dressing in place ) Extremities: normal pulses, other (no edema, clubbing or cyanosis ) 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: nl mental status, nl speech, nl strength, other (blind ) Results Result Diagram: 05/02/16 0430 05/02/16 0430 Results 24 hrs Laboratory Tests Test 05/01/16 18:09 05/01/16 21:04 05/02/16 04:30 05/02/16 08:27 Bedside Glucose 105 112 63 L Anion Gap 15 Basophils # Basophils % Blood Morphology Comment Blood Urea Nitrogen 9 Calcium Level 7.8 L Carbon Dioxide Level 27 Chloride Level 104 Creatinine 0.88 Differential Comment MANUAL DIFF Eosinophils # Eosinophils % Glucose Level 100 Hematocrit 25.4 L Hemoglobin 8.8 L Lymphocytes # 0.6 L Lymphocytes % 100.0 H Magnesium Level 1.8 Mean Corpuscular Hemoglobin 31.0 Mean Corpuscular Hemoglobin Concent 34.8 Mean Corpuscular Volume 89.1 Mean Platelet Volume 9.5 Monocytes # Monocytes % Neutrophils # Neutrophils % Phosphorus Level 3.3 Platelet Count 139 #L Potassium Level 3.3 L Red Blood Count 2.85 L Red Cell Distribution Width 21.6 H Sodium Level 143 White Blood Count 0.6 #L Test 05/02/16 08:58 05/02/16 11:56 Bedside Glucose 77 109 Medications Medications Current Medications Ondansetron HCl (Zofran Inj) 4 mg Q6H PRN IV NAUSEA AND/OR VOMITING Last administered on 04/30/16 05:51; Admin Dose 4 MG; Start 04/10/16 at 19:00 Nitroglycerin (Nitroglycerin (Sl Tab) 0.4 Mg) 1 tab Q5M PRN SL CHEST PAIN; Start 04/10/16 at 19:00 Acetaminophen (Tylenol Tab) 650 mg Q6H PRN PO PAIN LEVEL 1-3 OR FEVER Last administered on 04/30/16 23:46; Admin Dose 650 MG; Start 04/10/16 at 19:00 Acetaminophen/ Hydrocodone Bitart ([place] (5/325)) 1 tab Q6H PRN PO PAIN LEVEL 4 -6 Last administered on 04/14/16at 23:25; Admin Dose 1 TAB; Start 04/10/16 at 19: 00 Acetaminophen/ Hydrocodone Bitart ([place] (5/325)) 2 tab Q6H PRN PO PAIN LEVEL 7 -10 Last administered on 04/30/16at 00:30; Admin Dose 2 TAB; Start 04/10/16 at 19:00 Morphine Sulfate (morphine) 2 mg Q4H PRN IV PAIN LEVEL 7-10 Last administered on 04/29/16at 20:57; Admin Dose 2 MG; Start 04/10/16 at 19:00 Magnesium Hydroxide (Milk Of Mag) 30 ml DAILY PRN PO CONSTIPATION Last administered on 04/21/16at 05:00; Admin Dose 30 ML; Start 04/10/16 at 19:00 Bisacodyl (Dulcolax Supp) 10 mg DAILY PRN [place] CONSTIPATION; Start 04/10/16 at 19 :00 Pantoprazole (Protonix Tab) 40 mg DAILY@06 PO Last administered on 05/02/16at 06:07; Admin Dose 40 MG; Start 04/11/16 at 06:00 Miscellaneous Information 1 ea NOTE XX ; Start 04/10/16 at 19:00 Glucose (Glutose) 15 gm Q15M PRN PO DECREASED GLUCOSE; Start 04/10/16 at 19:00 Glucose (Glutose) 22.5 gm Q15M PRN PO DECREASED GLUCOSE; Start 04/10/16 at 19: 00 Dextrose (D50w Syringe) 25 ml Q15M PRN IV DECREASED GLUCOSE; Start 04/10/16 at 19:00 Dextrose (D50w Syringe) 50 ml Q15M PRN IV DECREASED GLUCOSE; Start 04/10/16 at 19:00 Glucagon (Glucagen) 1 mg Q15M PRN IM DECREASED GLUCOSE; Start 04/10/16 at 19:00 Glucose (Glutose) 15 gm Q15M PRN BUCCAL DECREASED GLUCOSE; Start 04/10/16 at 19 :00 Metoprolol Tartrate (Lopressor) 100 mg BID PO Last administered on 05/02/16at 09:02; Admin Dose 100 MG; Start 04/11/16 at 09:00 Docusate Sodium (Colace) 100 mg Q12H PO Last administered on 05/01/16at 06:37; Admin Dose 100 MG; Start 04/11/16 at 19:00 Polyethylene Glycol (Miralax) 17 gm DAILY PO Last administered on 05/02/16at 09 :02; Admin Dose 17 GM; Start 04/11/16 at 13:00 Levofloxacin (Levaquin) 500 mg DAILY@06 PO Last administered on 05/02/16at 06: 07; Admin Dose 500 MG; Start 04/15/16 at 14:00 Collagenase (Santyl) 1 applic DAILY TOP Last administered on 05/01/16at 18:10; Admin Dose 1 APPLIC; Start 04/17/16 at 16:00 Allopurinol (Zyloprim) 300 mg DAILY PO Last administered on 05/02/16at 09:01; Admin Dose 300 MG; Start 04/18/16 at 09:30 IV Flush (NS 10 ml) 10 ml PRN PRN IV IV PROTOCOL; Start 04/18/16 at 11:30 Dexamethasone (Decadron) 10 mg Q4H PRN IV REACTION Last administered on at 16:58; Admin Dose 10 MG; Start 04/18/16 at 13:00 Diphenhydramine HCl 25 mg 25 mg Q4H PRN IV ALLERGIC REACTION Last administered on 04/24/16at 16:42; Admin Dose 25 MG; Start 04/18/16 at 13:00 Ondansetron HCl/ Sodium Chloride (Zofran Inj/NS) 54 ml @ 110 mls/hr Q8H PRN IV NAUSEA Last administered on 04/30/16 09:51; Admin Dose 110 MLS/HR; Start 04/18/16 at 13:00 Amlodipine Besylate (Norvasc) 5 mg BID PO Last administered on 05/02/16 09:03 ; Admin Dose 5 MG; Start 04/21/16 at 21:00 Lisinopril (Zestril) 20 mg BID PO Last administered on 05/02/16 09:01; Admin Dose 20 MG; Start 04/21/16 at 21:00 Hydralazine HCl (Apresoline) 10 mg Q8H PRN IV ELEVATED BLOOD PRESSURE; Start 04/21/16 at 12:00 Insulin Glargine 50 unit 50 unit QHS SC Last administered on 05/01/16 21:10; Admin Dose 50 UNIT; Start 04/23/16 at 21:00 Vancomycin HCl 1.25 gm/Sodium Chloride 250 ml @ 83.333 mls/ hr Q12H IVPB Last administered on 05/02/16 04:26; Admin Dose 83.333 MLS/HR; Start 04/24/16 at 16:00 Filgrastim/ Dextrose (Neupogen/D5W) 51.6 ml @ 103.2 mls/ hr DAILY@17 IVPB Last administered on 05/01/16 18:08; Admin Dose 103.2 MLS/HR; Start 04/25/16 at 17:00 Fluconazole (Diflucan) 100 mg DAILY PO Last administered on 05/02/16 09:00; Admin Dose 100 MG; Start 04/27/16 at 09:00 Acyclovir 400 mg 400 mg BID PO Last administered on 05/02/16 09:01; Admin Dose 400 MG; Start 04/26/16 at 11:45 Sodium Chloride (NS) 1,000 ml @ 75 mls/hr [id number] IV Last administered on 16:48; Admin Dose 75 MLS/HR; Start 04/29/16 at 12:00 LAUREL ANDERSON May 02, 2016 13:43 LAUREL ANDERSON May 02, 2016 13:43
--- NOTE | 2016-05-02 14:30 | CONS ---
Date/Time of Note Date/Time of Note DATE: 05/02/16 TIME: 14:29 Consult Date/Type/Reason Admit Date/Time Apr 10, 2016 at 16:55 Initial Consult Date 04/11/16 Type of Consultation: ID Ordering Provider: LAUREL ANDERSON Subjective alert, sitting up in bed, denies pain, no fevers, no n/v/d, nad Objective Vital Signs Date Time Temp Pulse Resp B/P Pulse Ox O2 Delivery O2 Flow Rate FiO2 05/02/16 08:00 98.5 20 20 147/84 98 Room Air Intake and Output 05/01/16 05/01/16 05/02/16 15:00 23:00 07:00 Intake Total 50 ml 1810 ml 2600 ml Output Total 3600 ml 2200 ml Balance 50 ml -1790 ml 400 ml Results/Medications Result Diagram: 05/02/16 0430 05/02/16 0430 Results 24 hrs Laboratory Tests Test 05/01/16 18:09 05/01/16 21:04 05/02/16 04:30 05/02/16 08:27 Bedside Glucose 105 112 63 L Anion Gap 15 Basophils # Basophils % Blood Morphology Comment Blood Urea Nitrogen 9 Calcium Level 7.8 L Carbon Dioxide Level 27 Chloride Level 104 Creatinine 0.88 Differential Comment MANUAL DIFF Eosinophils # Eosinophils % Glucose Level 100 Hematocrit 25.4 L Hemoglobin 8.8 L Lymphocytes # 0.6 L Lymphocytes % 100.0 H Magnesium Level 1.8 Mean Corpuscular Hemoglobin 31.0 Mean Corpuscular Hemoglobin Concent 34.8 Mean Corpuscular Volume 89.1 Mean Platelet Volume 9.5 Monocytes # Monocytes % Neutrophils # Neutrophils % Phosphorus Level 3.3 Platelet Count 139 #L Potassium Level 3.3 L Red Blood Count 2.85 L Red Cell Distribution Width 21.6 H Sodium Level 143 White Blood Count 0.6 #L Test 05/02/16 08:58 05/02/16 11:56 Bedside Glucose 77 109 Medications Current Medications Ondansetron HCl (Zofran Inj) 4 mg Q6H PRN IV NAUSEA AND/OR VOMITING Last administered on 04/30/16at 05:51; Admin Dose 4 MG; Start 04/10/16 at 19:00 Nitroglycerin (Nitroglycerin (Sl Tab) 0.4 Mg) 1 tab Q5M PRN SL CHEST PAIN; Start 04/10/16 at 19:00 Acetaminophen (Tylenol Tab) 650 mg Q6H PRN PO PAIN LEVEL 1-3 OR FEVER Last administered on 04/30/16at 23:46; Admin Dose 650 MG; Start 04/10/16 at 19:00 Acetaminophen/ Hydrocodone Bitart ([place] (5/325)) 1 tab Q6H PRN PO PAIN LEVEL 4 -6 Last administered on 04/14/16at 23:25; Admin Dose 1 TAB; Start 04/10/16 at 19: 00 Acetaminophen/ Hydrocodone Bitart ([place] (5/325)) 2 tab Q6H PRN PO PAIN LEVEL 7 -10 Last administered on 04/30/16at 00:30; Admin Dose 2 TAB; Start 04/10/16 at 19:00 Morphine Sulfate (morphine) 2 mg Q4H PRN IV PAIN LEVEL 7-10 Last administered on 04/29/16at 20:57; Admin Dose 2 MG; Start 04/10/16 at 19:00 Magnesium Hydroxide (Milk Of Mag) 30 ml DAILY PRN PO CONSTIPATION Last administered on 04/21/16at 05:00; Admin Dose 30 ML; Start 04/10/16 at 19:00 Bisacodyl (Dulcolax Supp) 10 mg DAILY PRN [place] CONSTIPATION; Start 04/10/16 at 19 :00 Pantoprazole (Protonix Tab) 40 mg DAILY@06 PO Last administered on 05/02/16at 06:07; Admin Dose 40 MG; Start 04/11/16 at 06:00 Miscellaneous Information 1 ea NOTE XX ; Start 04/10/16 at 19:00 Glucose (Glutose) 15 gm Q15M PRN PO DECREASED GLUCOSE; Start 04/10/16 at 19:00 Glucose (Glutose) 22.5 gm Q15M PRN PO DECREASED GLUCOSE; Start 04/10/16 at 19: 00 Dextrose (D50w Syringe) 25 ml Q15M PRN IV DECREASED GLUCOSE; Start 04/10/16 at 19:00 Dextrose (D50w Syringe) 50 ml Q15M PRN IV DECREASED GLUCOSE; Start 04/10/16 at 19:00 Glucagon (Glucagen) 1 mg Q15M PRN IM DECREASED GLUCOSE; Start 04/10/16 at 19:00 Glucose (Glutose) 15 gm Q15M PRN BUCCAL DECREASED GLUCOSE; Start 04/10/16 at 19 :00 Metoprolol Tartrate (Lopressor) 100 mg BID PO Last administered on 05/02/16 09:02; Admin Dose 100 MG; Start 04/11/16 at 09:00 Docusate Sodium (Colace) 100 mg Q12H PO Last administered on 05/01/16 06:37; Admin Dose 100 MG; Start 04/11/16 at 19:00 Polyethylene Glycol (Miralax) 17 gm DAILY PO Last administered on 05/02/16 09 :02; Admin Dose 17 GM; Start 04/11/16 at 13:00 Levofloxacin (Levaquin) 500 mg DAILY@06 PO Last administered on 05/02/16 06: 07; Admin Dose 500 MG; Start 04/15/16 at 14:00 Collagenase (Santyl) 1 applic DAILY TOP Last administered on 05/01/16 18:10; Admin Dose 1 APPLIC; Start 04/17/16 at 16:00 Allopurinol (Zyloprim) 300 mg DAILY PO Last administered on 05/02/16 09:01; Admin Dose 300 MG; Start 04/18/16 at 09:30 IV Flush (NS 10 ml) 10 ml PRN PRN IV IV PROTOCOL; Start 04/18/16 at 11:30 Dexamethasone (Decadron) 10 mg Q4H PRN IV REACTION Last administered on 16:58; Admin Dose 10 MG; Start 04/18/16 at 13:00 Diphenhydramine HCl 25 mg 25 mg Q4H PRN IV ALLERGIC REACTION Last administered on 04/24/16 16:42; Admin Dose 25 MG; Start 04/18/16 at 13:00 Ondansetron HCl/ Sodium Chloride (Zofran Inj/NS) 54 ml @ 110 mls/hr Q8H PRN IV NAUSEA Last administered on 04/30/16 09:51; Admin Dose 110 MLS/HR; Start 04/18/16 at 13:00 Amlodipine Besylate (Norvasc) 5 mg BID PO Last administered on 05/02/16 09:03 ; Admin Dose 5 MG; Start 04/21/16 at 21:00 Lisinopril (Zestril) 20 mg BID PO Last administered on 05/02/16 09:01; Admin Dose 20 MG; Start 04/21/16 at 21:00 Hydralazine HCl 10 mg 10 mg Q8H PRN IV ELEVATED BLOOD PRESSURE; Start at 12:00 Vancomycin HCl 1.25 gm/Sodium Chloride 250 ml @ 83.333 mls/ hr Q12H IVPB Last administered on 05/02/16at 04:26; Admin Dose 83.333 MLS/HR; Start 04/24/16 at 16:00 Filgrastim/ Dextrose (Neupogen/D5W) 51.6 ml @ 103.2 mls/ hr DAILY@17 IVPB Last administered on 05/01/16at 18:08; Admin Dose 103.2 MLS/HR; Start 04/25/16 at 17:00 Fluconazole (Diflucan) 100 mg DAILY PO Last administered on 05/02/16at 09:00; Admin Dose 100 MG; Start 04/27/16 at 09:00 Acyclovir 400 mg 400 mg BID PO Last administered on 05/02/16at 09:01; Admin Dose 400 MG; Start 04/26/16 at 11:45 Sodium Chloride (NS) 1,000 ml @ 75 mls/hr [id number] IV Last administered on at 16:48; Admin Dose 75 MLS/HR; Start 04/29/16 at 12:00 Insulin Glargine (Lantus) 40 unit QHS SC ; Start 05/02/16 at 21:00 Prednisolone/ Sulfacetamide (Blephamide Oph) 2 drop QID BOTH EYES ; Start 05/02 at 17:00 Assessment/Plan Chief Complaint/Hosp Course ANTIMICROBIALS: 1. Vancomycin 2. Levaquin. 3. Diflucan 4. Acyclovir Indwellings: LUE PICC 04/18/16 PHYSICAL EXAMINATION: GENERAL: Obese, well-developed, middle-aged man who is awake, in no distress. HEENT: Head atraumatic, normocephalic. Sclerae anicteric. Buccal mucosa pink. NECK: Supple. Trachea midline. LUNGS: Chest rise symmetrical. Breath sounds clear, diminished at bases. HEART: S1, S2. ABDOMEN: Soft. Bowel tones present. EXTREMITIES: With right foot edema ASSESSMENT: 1. 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 4. Diabetes. 5. Hypertension. 6. Legally blind. PLAN: Remains stable, repeat bld cx negative, continue abx, chemotherapy/ Neupogen per oncology [facility] staff Problems: JUVENAL SANCHEZ NP May 02, 2016 14:30
[2016-05-02] MEDS: DEXTROSE 5% IVPB SCH (16:20)
[2016-05-02] MEDS: FILGRASTIM IVPB SCH (16:20)
[2016-05-02] MEDS: PREDNISOLONE/SULFACETAMIDE 5 ML OPH BOTH EYES SCH ×2 (17:00→20:56)
[2016-05-02 20:10] VITALS: BP 132/85; PULSE 94; RESP 18
[2016-05-02] MEDS: INSULIN GLARGINE [LANtus] 3 ML PEN SC SCH (20:40)
[2016-05-03] MEDS: ACETAMINOPHEN 325 MG TAB PO PRN ×2 (00:54→11:29)
[2016-05-03] MEDS: VANCOMYCIN 1.25 GM in SOD CHLORIDE 0.9% 250 ML IVPB SCH ×2 (03:39→17:47)
[2016-05-03 05:20] LABS: HEMOGLOBIN 9.4 g/dl (14.0-18.0); MEAN CORPUSCULAR HEMOGLOBIN 30.2 pg (29.0-33.0); MEAN CORPUSCULAR HGB CONC 33.6 g/dl (32.0-37.0); MEAN CORPUSCULAR VOLUME 89.9 fl (82.0-101.0); RED BLOOD COUNT 3.11 10^6/ul (4.70-6.10); RED CELL DISTRIBUTION WIDTH 20.6 % (11.5-14.5); UNCORRECTED WBC 0.7 10^3/ul (4.8-10.8); WHITE BLOOD COUNT 0.7 10^3/ul (4.8-10.8)
[2016-05-03 05:34] LABS: POTASSIUM 3.7 mmol/L (3.5-5.1)
[2016-05-03 05:37] LABS: CALCIUM 8.2 mg/dl (8.4-10.2); CREATININE 0.92 mg/dl (0.61-1.24)
[2016-05-03 05:41] LABS: PHOSPHORUS 3.5 mg/dl (2.5-4.9)
[2016-05-03] MEDS: DOCUSATE SODIUM 100 MG CAP PO SCH ×2 (05:48→10:00)
[2016-05-03] MEDS: PANTOPRAZOLE (EC) 40 MG TAB PO SCH (05:48)
[2016-05-03] MEDS: LEVOFLOXACIN 500 MG TAB PO SCH (05:49)
[2016-05-03 05:56] LABS: CONDITION 1; LH ANALYZER COMMENTS 1
[2016-05-03] MEDS: INSULIN ASPART [NOVOLOG] 3 ML PEN SC SCH ×6 (07:50→17:53)
[2016-05-03 08:00] VITALS: BP 143/91; PULSE 88; RESP 22
[2016-05-03] MEDS: COLLAGENASE 30 GM TUBE TOP SCH (09:00)
[2016-05-03] MEDS: PREDNISOLONE/SULFACETAMIDE 5 ML OPH BOTH EYES SCH ×4 (09:00→21:33)
[2016-05-03 09:33] LABS: LYMPHOCYTES # 0.6 10^3/ul (0.8-2.9)
[2016-05-03] MEDS: POLYETHYLENE GLYCOL 17 GM PACKET PO SCH (09:58)
[2016-05-03] MEDS: METOPROLOL 100 MG TAB PO SCH ×2 (10:00→21:32)
[2016-05-03] MEDS: ACYCLOVIR 400 MG TAB PO SCH ×2 (10:00→21:31)
[2016-05-03] MEDS: LISINOPRIL 20 MG TAB PO SCH ×2 (10:00→21:32)
[2016-05-03] MEDS: ALLOPURINOL 300 MG TAB PO SCH (10:00)
[2016-05-03] MEDS: AMLODIPINE 5 MG TAB PO SCH ×2 (10:00→21:32)
[2016-05-03] MEDS: FLUCONAZOLE 100 MG TAB PO SCH (10:01)
[2016-05-03] MEDS: SOD CHLORIDE 0.9% 1,000 ML IV SCH ×2 (10:01→22:40)
[2016-05-03 10:31] LABS: PLATELET COUNT 31 10^3/UL (140-440)
--- NOTE | 2016-05-03 14:11 | CONS ---
Date/Time of Note Date/Time of Note DATE: 05/03/16 TIME: 14:10 Consult Date/Type/Reason Admit Date/Time Apr 10, 2016 at 16:55 Initial Consult Date 04/11/16 Type of Consultation: ID Ordering Provider: LAUREL ANDERSON Subjective events noted, awake, denies pain, no n/v/d, nad Objective Vital Signs Date Time Temp Pulse Resp B/P Pulse Ox O2 Delivery O2 Flow Rate FiO2 05/02/16 20:10 98.8 94 18 132/85 100 Room Air Intake and Output 05/02/16 05/02/16 05/03/16 15:00 23:00 07:00 Intake Total 2401.6 ml 1650 ml Output Total 1000 ml 1100 ml Balance 1401.6 ml 550 ml Results/Medications Result Diagram: 05/03/16 0445 05/03/16 0445 Results 24 hrs Laboratory Tests Test 05/02/16 17:43 05/02/16 20:10 05/03/16 04:45 05/03/16 07:54 Bedside Glucose 121 208 Anion Gap 16 Band Neutrophils % 3.0 Basophils # 0.0 Basophils % 2.0 Blood Morphology Comment Blood Urea Nitrogen 12 Calcium Level 8.2 L Carbon Dioxide Level 27 Chloride Level 105 Creatinine 0.92 Eosinophils # 0.0 Eosinophils % 2.0 Glucose Level 80 Hematocrit 28.0 L Hemoglobin 9.4 L Lymphocytes # 0.6 L Lymphocytes % 88.0 H Magnesium Level 2.0 Mean Corpuscular Hemoglobin 30.2 Mean Corpuscular Hemoglobin Concent 33.6 Mean Corpuscular Volume 89.9 Mean Platelet Volume 9.0 Neutrophils # 0.0 L Neutrophils % 5.0 L Nucleated Red Blood Cells # Phosphorus Level 3.5 Platelet Count 31 #L Potassium Level 3.7 Red Blood Count 3.11 L Red Cell Distribution Width 20.6 H Sodium Level 144 White Blood Count 0.7 L Lab Scanned Report REFERENCE LAB Test 05/03/16 08:14 05/03/16 11:22 05/03/16 13:12 Bedside Glucose 101 214 152 Medications Current Medications Ondansetron HCl (Zofran Inj) 4 mg Q6H PRN IV NAUSEA AND/OR VOMITING Last administered on 04/30/16at 05:51; Admin Dose 4 MG; Start 04/10/16 at 19:00 Nitroglycerin (Nitroglycerin (Sl Tab) 0.4 Mg) 1 tab Q5M PRN SL CHEST PAIN; Start 04/10/16 at 19:00 Acetaminophen (Tylenol Tab) 650 mg Q6H PRN PO PAIN LEVEL 1-3 OR FEVER Last administered on 05/03/16at 11:29; Admin Dose 650 MG; Start 04/10/16 at 19:00 Acetaminophen/ Hydrocodone Bitart ([place] (5/325)) 1 tab Q6H PRN PO PAIN LEVEL 4 -6 Last administered on 04/14/16at 23:25; Admin Dose 1 TAB; Start 04/10/16 at 19: 00 Acetaminophen/ Hydrocodone Bitart ([place] (5/325)) 2 tab Q6H PRN PO PAIN LEVEL 7 -10 Last administered on 04/30/16at 00:30; Admin Dose 2 TAB; Start 04/10/16 at 19:00 Morphine Sulfate (morphine) 2 mg Q4H PRN IV PAIN LEVEL 7-10 Last administered on 04/29/16at 20:57; Admin Dose 2 MG; Start 04/10/16 at 19:00 Magnesium Hydroxide (Milk Of Mag) 30 ml DAILY PRN PO CONSTIPATION Last administered on 04/21/16at 05:00; Admin Dose 30 ML; Start 04/10/16 at 19:00 Bisacodyl (Dulcolax Supp) 10 mg DAILY PRN [place] CONSTIPATION; Start 04/10/16 at 19 :00 Pantoprazole (Protonix Tab) 40 mg DAILY@06 PO Last administered on 05/03/16at 05:48; Admin Dose 40 MG; Start 04/11/16 at 06:00 Miscellaneous Information 1 ea NOTE XX ; Start 04/10/16 at 19:00 Glucose (Glutose) 15 gm Q15M PRN PO DECREASED GLUCOSE; Start 04/10/16 at 19:00 Glucose (Glutose) 22.5 gm Q15M PRN PO DECREASED GLUCOSE; Start 04/10/16 at 19: 00 Dextrose (D50w Syringe) 25 ml Q15M PRN IV DECREASED GLUCOSE; Start 04/10/16 at 19:00 Dextrose (D50w Syringe) 50 ml Q15M PRN IV DECREASED GLUCOSE; Start 04/10/16 at 19:00 Glucagon (Glucagen) 1 mg Q15M PRN IM DECREASED GLUCOSE; Start 04/10/16 at 19:00 Glucose (Glutose) 15 gm Q15M PRN BUCCAL DECREASED GLUCOSE; Start 04/10/16 at 19 :00 Metoprolol Tartrate (Lopressor) 100 mg BID PO Last administered on 05/03/16 10:00; Admin Dose 100 MG; Start 04/11/16 at 09:00 Docusate Sodium (Colace) 100 mg Q12H PO Last administered on 05/03/16 10:00; Admin Dose 100 MG; Start 04/11/16 at 19:00 Polyethylene Glycol (Miralax) 17 gm DAILY PO Last administered on 05/03/16 09 :58; Admin Dose 17 GM; Start 04/11/16 at 13:00 Levofloxacin (Levaquin) 500 mg DAILY@06 PO Last administered on 05/03/16 05: 49; Admin Dose 500 MG; Start 04/15/16 at 14:00 Collagenase (Santyl) 1 applic DAILY TOP Last administered on 05/03/16 09:00; Admin Dose 1 APPLIC; Start 04/17/16 at 16:00 Allopurinol (Zyloprim) 300 mg DAILY PO Last administered on 05/03/16 10:00; Admin Dose 300 MG; Start 04/18/16 at 09:30 IV Flush (NS 10 ml) 10 ml PRN PRN IV IV PROTOCOL; Start 04/18/16 at 11:30 Dexamethasone (Decadron) 10 mg Q4H PRN IV REACTION Last administered on 16:58; Admin Dose 10 MG; Start 04/18/16 at 13:00 Diphenhydramine HCl 25 mg 25 mg Q4H PRN IV ALLERGIC REACTION Last administered on 04/24/16 16:42; Admin Dose 25 MG; Start 04/18/16 at 13:00 Ondansetron HCl/ Sodium Chloride (Zofran Inj/NS) 54 ml @ 110 mls/hr Q8H PRN IV NAUSEA Last administered on 04/30/16 09:51; Admin Dose 110 MLS/HR; Start 04/18/16 at 13:00 Amlodipine Besylate (Norvasc) 5 mg BID PO Last administered on 05/03/16 10:00 ; Admin Dose 5 MG; Start 04/21/16 at 21:00 Lisinopril (Zestril) 20 mg BID PO Last administered on 05/03/16at 10:00; Admin Dose 20 MG; Start 04/21/16 at 21:00 Hydralazine HCl 10 mg 10 mg Q8H PRN IV ELEVATED BLOOD PRESSURE; Start at 12:00 Vancomycin HCl 1.25 gm/Sodium Chloride 250 ml @ 83.333 mls/ hr Q12H IVPB Last administered on 05/03/16at 03:39; Admin Dose 83.333 MLS/HR; Start 04/24/16 at 16:00 Filgrastim/ Dextrose (Neupogen/D5W) 51.6 ml @ 103.2 mls/ hr DAILY@17 IVPB Last administered on 05/02/16at 16:20; Admin Dose 103.2 MLS/HR; Start 04/25/16 at 17:00 Fluconazole (Diflucan) 100 mg DAILY PO Last administered on 05/03/16 10:01; Admin Dose 100 MG; Start 04/27/16 at 09:00 Acyclovir 400 mg 400 mg BID PO Last administered on 05/03/16at 10:00; Admin Dose 400 MG; Start 04/26/16 at 11:45 Sodium Chloride (NS) 1,000 ml @ 75 mls/hr [id number] IV Last administered on at 10:01; Admin Dose 75 MLS/HR; Start 04/29/16 at 12:00 Insulin Glargine (Lantus) 40 unit QHS SC Last administered on 05/02/16at 20:40 ; Admin Dose 40 UNIT; Start 05/02/16 at 21:00 Prednisolone/ Sulfacetamide (Blephamide Oph) 2 drop QID BOTH EYES Last administered on 05/03/16 13:16; Admin Dose 2 DROP; Start 05/02/16 at 17:00 Assessment/Plan Chief Complaint/Hosp Course ANTIMICROBIALS: 1. Vancomycin 2. Levaquin. 3. Diflucan 4. Acyclovir Indwellings: LUE PICC 04/18/16 PHYSICAL EXAMINATION: GENERAL: Obese, well-developed, middle-aged man who is awake, in no distress. HEENT: Head atraumatic, normocephalic. Sclerae anicteric. Buccal mucosa pink. NECK: Supple. Trachea midline. LUNGS: Chest rise symmetrical. Breath sounds clear, diminished at bases. HEART: S1, S2. ABDOMEN: Soft. Bowel tones present. EXTREMITIES: With right foot edema ASSESSMENT: 1. 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 4. Diabetes. 5. Hypertension. 6. Legally blind. PLAN: Remains stable, repeat bld cx negative, continue abx, chemotherapy/ Neupogen per oncology [facility] staff Problems: JUVENAL SANCHEZ NP May 03, 2016 14:11
--- NOTE | 2016-05-03 15:16 | CONS ---
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 Initial labs also revealed pancytopenia with a Hg 6.7 and platelets in 30's. 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 He was spiking fevers but is now afebrile. Problems: Additional Assessment/Plan -Pt is now s/p cladribine 0.14mg/kg/day continues IV infusion x 5 days + Rituxan. -continue antibiotics per ID for osteomyelitis -neutropenia related to cladribine, continue to monitor. improving gradually -continue broad spectrum antibiotics for neutropenic fevers -f/u cultures -2 units prbc and hgb now more than 8 -platelets now on own better than 70 then 139 but today decreased to 31. Will re-check CBC -pt will need a repeat bone marrow bx in 3-4 weeks. this can be done as an out patient Problems: Consultation Date/Type/Reason Admit Date/Time Apr 10, 2016 at 16:55 Initial Consult Date 04/11/16 Type of Consultation: Hematology/Oncology Referring Provider: LAUREL ANDERSON 24 HR Interval Summary Free Text/Dictation No complaints, feels well. Requests PT eval. Exam/Review of Systems Vital Signs Vitals Vital Signs Date Time Temp Pulse Resp B/P Pulse Ox O2 Delivery O2 Flow Rate FiO2 05/02/16 20:10 98.8 94 18 132/85 100 Room Air Intake and Output 05/02/16 05/02/16 05/03/16 15:00 23:00 07:00 Intake Total 2401.6 ml 1650 ml Output Total 1000 ml 1100 ml Balance 1401.6 ml 550 ml Exam Constitutional: alert, oriented Head: atraumatic, normocephalic Eyes: other (bilateral blindness) ENMT: nl external ears & nose Neck: non-tender, supple Respiratory: clear to auscultation, normal air movement Cardiovascular: regular rate and rhythm Gastrointestinal: soft Musculoskeletal: nl extremities to inspection, nl gait and stance Extremities: normal pulses Results Result Diagram: 05/03/16 0445 05/03/16 0445 Results 24 hrs Laboratory Tests Test 05/02/16 17:43 05/02/16 20:10 05/03/16 04:45 05/03/16 07:54 Bedside Glucose 121 208 Anion Gap 16 Band Neutrophils % 3.0 Basophils # 0.0 Basophils % 2.0 Blood Morphology Comment Blood Urea Nitrogen 12 Calcium Level 8.2 L Carbon Dioxide Level 27 Chloride Level 105 Creatinine 0.92 Eosinophils # 0.0 Eosinophils % 2.0 Glucose Level 80 Hematocrit 28.0 L Hemoglobin 9.4 L Lymphocytes # 0.6 L Lymphocytes % 88.0 H Magnesium Level 2.0 Mean Corpuscular Hemoglobin 30.2 Mean Corpuscular Hemoglobin Concent 33.6 Mean Corpuscular Volume 89.9 Mean Platelet Volume 9.0 Neutrophils # 0.0 L Neutrophils % 5.0 L Nucleated Red Blood Cells # Phosphorus Level 3.5 Platelet Count 31 #L Potassium Level 3.7 Red Blood Count 3.11 L Red Cell Distribution Width 20.6 H Sodium Level 144 White Blood Count 0.7 L Lab Scanned Report REFERENCE LAB Test 05/03/16 08:14 05/03/16 11:22 05/03/16 13:12 Bedside Glucose 101 214 152 Medications Medications Current Medications Ondansetron HCl (Zofran Inj) 4 mg Q6H PRN IV NAUSEA AND/OR VOMITING Last administered on 04/30/16at 05:51; Admin Dose 4 MG; Start 04/10/16 at 19:00 Nitroglycerin (Nitroglycerin (Sl Tab) 0.4 Mg) 1 tab Q5M PRN SL CHEST PAIN; Start 04/10/16 at 19:00 Acetaminophen (Tylenol Tab) 650 mg Q6H PRN PO PAIN LEVEL 1-3 OR FEVER Last administered on 05/03/16at 11:29; Admin Dose 650 MG; Start 04/10/16 at 19:00 Acetaminophen/ Hydrocodone Bitart ([place] (5/325)) 1 tab Q6H PRN PO PAIN LEVEL 4 -6 Last administered on 04/14/16at 23:25; Admin Dose 1 TAB; Start 04/10/16 at 19: 00 Acetaminophen/ Hydrocodone Bitart ([place] (5/325)) 2 tab Q6H PRN PO PAIN LEVEL 7 -10 Last administered on 04/30/16at 00:30; Admin Dose 2 TAB; Start 04/10/16 at 19:00 Morphine Sulfate (morphine) 2 mg Q4H PRN IV PAIN LEVEL 7-10 Last administered on 04/29/16at 20:57; Admin Dose 2 MG; Start 04/10/16 at 19:00 Magnesium Hydroxide (Milk Of Mag) 30 ml DAILY PRN PO CONSTIPATION Last administered on 04/21/16at 05:00; Admin Dose 30 ML; Start 04/10/16 at 19:00 Bisacodyl (Dulcolax Supp) 10 mg DAILY PRN MD CONSTIPATION; Start 04/10/16 at 19 :00 Pantoprazole (Protonix Tab) 40 mg DAILY@06 PO Last administered on 05/03/16at 05:48; Admin Dose 40 MG; Start 04/11/16 at 06:00 Miscellaneous Information 1 ea NOTE XX ; Start 04/10/16 at 19:00 Glucose (Glutose) 15 gm Q15M PRN PO DECREASED GLUCOSE; Start 04/10/16 at 19:00 Glucose (Glutose) 22.5 gm Q15M PRN PO DECREASED GLUCOSE; Start 04/10/16 at 19: 00 Dextrose (D50w Syringe) 25 ml Q15M PRN IV DECREASED GLUCOSE; Start 04/10/16 at 19:00 Dextrose (D50w Syringe) 50 ml Q15M PRN IV DECREASED GLUCOSE; Start 04/10/16 at 19:00 Glucagon (Glucagen) 1 mg Q15M PRN IM DECREASED GLUCOSE; Start 04/10/16 at 19:00 Glucose (Glutose) 15 gm Q15M PRN BUCCAL DECREASED GLUCOSE; Start 04/10/16 at 19 :00 Metoprolol Tartrate (Lopressor) 100 mg BID PO Last administered on 05/03/16at 10:00; Admin Dose 100 MG; Start 04/11/16 at 09:00 Docusate Sodium (Colace) 100 mg Q12H PO Last administered on 05/03/16at 10:00; Admin Dose 100 MG; Start 04/11/16 at 19:00 Polyethylene Glycol (Miralax) 17 gm DAILY PO Last administered on 05/03/16at 09 :58; Admin Dose 17 GM; Start 04/11/16 at 13:00 Levofloxacin (Levaquin) 500 mg DAILY@06 PO Last administered on 05/03/16 05: 49; Admin Dose 500 MG; Start 04/15/16 at 14:00 Collagenase (Santyl) 1 applic DAILY TOP Last administered on 05/03/16 09:00; Admin Dose 1 APPLIC; Start 04/17/16 at 16:00 Allopurinol (Zyloprim) 300 mg DAILY PO Last administered on 05/03/16 10:00; Admin Dose 300 MG; Start 04/18/16 at 09:30 IV Flush (NS 10 ml) 10 ml PRN PRN IV IV PROTOCOL; Start 04/18/16 at 11:30 Dexamethasone (Decadron) 10 mg Q4H PRN IV REACTION Last administered on 16:58; Admin Dose 10 MG; Start 04/18/16 at 13:00 Diphenhydramine HCl 25 mg 25 mg Q4H PRN IV ALLERGIC REACTION Last administered on 04/24/16 16:42; Admin Dose 25 MG; Start 04/18/16 at 13:00 Ondansetron HCl/ Sodium Chloride (Zofran Inj/NS) 54 ml @ 110 mls/hr Q8H PRN IV NAUSEA Last administered on 04/30/16 09:51; Admin Dose 110 MLS/HR; Start 04/18/16 at 13:00 Amlodipine Besylate (Norvasc) 5 mg BID PO Last administered on 05/03/16 10:00 ; Admin Dose 5 MG; Start 04/21/16 at 21:00 Lisinopril (Zestril) 20 mg BID PO Last administered on 05/03/16at 10:00; Admin Dose 20 MG; Start 04/21/16 at 21:00 Hydralazine HCl 10 mg 10 mg Q8H PRN IV ELEVATED BLOOD PRESSURE; Start at 12:00 Vancomycin HCl 1.25 gm/Sodium Chloride 250 ml @ 83.333 mls/ hr Q12H IVPB Last administered on 05/03/16 03:39; Admin Dose 83.333 MLS/HR; Start 04/24/16 at 16:00 Filgrastim/ Dextrose (Neupogen/D5W) 51.6 ml @ 103.2 mls/ hr DAILY@17 IVPB Last administered on 05/02/16 16:20; Admin Dose 103.2 MLS/HR; Start 04/25/16 at 17:00 Fluconazole (Diflucan) 100 mg DAILY PO Last administered on 05/03/16 10:01; Admin Dose 100 MG; Start 04/27/16 at 09:00 Acyclovir 400 mg 400 mg BID PO Last administered on 05/03/16 10:00; Admin Dose 400 MG; Start 04/26/16 at 11:45 Sodium Chloride (NS) 1,000 ml @ 75 mls/hr [id number] IV Last administered on 10:01; Admin Dose 75 MLS/HR; Start 04/29/16 at 12:00 Insulin Glargine (Lantus) 40 unit QHS SC Last administered on 05/02/16 20:40 ; Admin Dose 40 UNIT; Start 05/02/16 at 21:00 Prednisolone/ Sulfacetamide (Blephamide Oph) 2 drop QID BOTH EYES Last administered on 05/03/16 13:16; Admin Dose 2 DROP; Start 05/02/16 at 17:00 JC ERNST MD May 03, 2016 15:16
[2016-05-03 16:13] LABS: HEMATOCRIT 27.2 % (42.0-52.0); MEAN CORPUSCULAR HEMOGLOBIN 29.9 pg (29.0-33.0); MEAN CORPUSCULAR HGB CONC 33.1 g/dl (32.0-37.0); MEAN CORPUSCULAR VOLUME 90.3 fl (82.0-101.0); MEAN PLATELET VOLUME 8.5 fl (7.4-10.4); RED BLOOD COUNT 3.01 10^6/ul (4.70-6.10); UNCORRECTED WBC 0.6 10^3/ul (4.8-10.8); WHITE BLOOD COUNT 0.6 10^3/ul (4.8-10.8)
[2016-05-03 16:14] LABS: CONDITION 1; LH ANALYZER COMMENTS 1; SUSPECT 1
[2016-05-03 16:24] LABS: PLATELET COUNT 29 10^3/UL (140-440)
[2016-05-03] MEDS: FILGRASTIM IVPB SCH (16:58)
[2016-05-03] MEDS: DEXTROSE 5% IVPB SCH (16:58)
[2016-05-03 17:56] LABS: LYMPHOCYTES # 0.5 10^3/ul (0.8-2.9); NEUTROPHIL # 0.1 10^3/ul (1.6-7.5)
[2016-05-03 20:20] VITALS: BP 132/89; PULSE 88; RESP 19
[2016-05-03] MEDS: INSULIN GLARGINE [LANtus] 3 ML PEN SC SCH (21:34)
--- NOTE | 2016-05-03 23:30 | PN ---
Date/Time of Note Date/Time of Note DATE: 05/03/16 TIME: 23:15 Assessment/Plan VTE Prophylaxis VTE Prophylaxis Intervention: contraindicated (severe thrombocytopenia), other Lines/Catheters IV Catheter Type (from Nrsg): PICC Line Central line still needed: Yes Urinary Cath still in place: No Assessment/Plan Assessment/Plan [facility] 1. 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 ANC up to 100/ul, on WBC of 0.6k/ul. * Continue Neupogen * Continue Acyclovir and Diflucan * Screening for BK/COOPER viruses NEGATIVE; anticipation of rituximab use for the HCL. 2. Right 1st and 2nd toe cellulitis/osteomyelitis on MRI. Neutropenic post chemo.JOSE J-negative for endocarditis. Blood cultures and wound cultures NGTD. Wound care and Dr Thomas following patient. * Continue Vancomycin and Levaquin 3. Urine culture positive for Coag neg staph and Radha, but with low colony count. 4. Blood culture bottle showing GPC 1/2. 5. Diabetes. HbA1c 7.2% * Continue Tradjenta * Continue lower Lantus dose at 40 units and premeal insulin to 6 units * Controlled carbohydrate diet 6. Cardiomegaly, EF 50%. No further episodes of NSVT the weekend. * Continue Lopressor/beta-alma 7. Hypertension. * Continue Carvedilol, Norvasc and Lisinopril. * Use hydralazine PRN 8. Constipation * Continue Miralax and Colace 9. 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 Concerns for possible CMV retinitis * Continue acyclovir * Ophthalmology evaluation outpatient 10. Prophylaxis: Protonix for GI prophylaxis and SCDs for DVT prophylaxis. 11. DISPOSITION: Waiting for normalization of the WBC count prior to discharge home. Bárbara Perez MD PhD [phone] Subjective 24 Hr Interval Summary Free Text/Dictation Sleeping soundly Exam/Review of Systems Vital Signs Vitals Vital Signs Date Time Temp Pulse Resp B/P Pulse Ox O2 Delivery O2 Flow Rate FiO2 05/03/16 20:20 98.0 88 19 132/89 97 Room Air Intake and Output 12/27/16 12/27/16 12/28/16 15:00 23:00 07:00 Intake Total 2401.6 ml 1650 ml Output Total 1000 ml 1100 ml Balance 1401.6 ml 550 ml Results Result Diagram: 05/03/16 1602 05/03/16 0445 Results 24 hrs Laboratory Tests Test 05/03/16 04:45 05/03/16 07:54 05/03/16 08:14 05/03/16 11:22 Anion Gap 16 Band Neutrophils % 3.0 Basophils # 0.0 Basophils % 2.0 Blood Morphology Comment Blood Urea Nitrogen 12 Calcium Level 8.2 L Carbon Dioxide Level 27 Chloride Level 105 Creatinine 0.92 Eosinophils # 0.0 Eosinophils % 2.0 Glucose Level 80 Hematocrit 28.0 L Hemoglobin 9.4 L Lymphocytes # 0.6 L Lymphocytes % 88.0 H Magnesium Level 2.0 Mean Corpuscular Hemoglobin 30.2 Mean Corpuscular Hemoglobin Concent 33.6 Mean Corpuscular Volume 89.9 Mean Platelet Volume 9.0 Neutrophils # 0.0 L Neutrophils % 5.0 L Nucleated Red Blood Cells # Phosphorus Level 3.5 Platelet Count 31 #L Potassium Level 3.7 Red Blood Count 3.11 L Red Cell Distribution Width 20.6 H Sodium Level 144 White Blood Count 0.7 L Lab Scanned Report REFERENCE LAB Bedside Glucose 101 214 Test 05/03/16 13:12 05/03/16 16:02 05/03/16 16:56 05/03/16 20:06 Bedside Glucose 152 174 209 Basophils # Basophils % Blood Morphology Comment Differential Comment MANUAL DIFF Eosinophils # Eosinophils % Hematocrit 27.2 L Hemoglobin 9.0 L Lymphocytes # 0.5 L Lymphocytes % 90.0 H Mean Corpuscular Hemoglobin 29.9 Mean Corpuscular Hemoglobin Concent 33.1 Mean Corpuscular Volume 90.3 Mean Platelet Volume 8.5 Monocytes # Monocytes % Neutrophils # 0.1 L Neutrophils % 10.0 L Platelet Count 29 *L Red Blood Count 3.01 L Red Cell Distribution Width 22.0 H White Blood Count 0.6 L Medications Medications Current Medications Ondansetron HCl (Zofran Inj) 4 mg Q6H PRN IV NAUSEA AND/OR VOMITING Last administered on 04/30/16at 05:51; Admin Dose 4 MG; Start 04/10/16 at 19:00 Nitroglycerin (Nitroglycerin (Sl Tab) 0.4 Mg) 1 tab Q5M PRN SL CHEST PAIN; Start 04/10/16 at 19:00 Acetaminophen (Tylenol Tab) 650 mg Q6H PRN PO PAIN LEVEL 1-3 OR FEVER Last administered on 05/03/16at 11:29; Admin Dose 650 MG; Start 04/10/16 at 19:00 Acetaminophen/ Hydrocodone Bitart ([place] (5/325)) 1 tab Q6H PRN PO PAIN LEVEL 4 -6 Last administered on 04/14/16at 23:25; Admin Dose 1 TAB; Start 04/10/16 at 19: 00 Acetaminophen/ Hydrocodone Bitart ([place] (5/325)) 2 tab Q6H PRN PO PAIN LEVEL 7 -10 Last administered on 04/30/16at 00:30; Admin Dose 2 TAB; Start 04/10/16 at 19:00 Morphine Sulfate (morphine) 2 mg Q4H PRN IV PAIN LEVEL 7-10 Last administered on 04/29/16at 20:57; Admin Dose 2 MG; Start 04/10/16 at 19:00 Magnesium Hydroxide (Milk Of Mag) 30 ml DAILY PRN PO CONSTIPATION Last administered on 04/21/16at 05:00; Admin Dose 30 ML; Start 04/10/16 at 19:00 Bisacodyl (Dulcolax Supp) 10 mg DAILY PRN SC CONSTIPATION; Start 04/10/16 at 19 :00 Pantoprazole (Protonix Tab) 40 mg DAILY@06 PO Last administered on 05/03/16at 05:48; Admin Dose 40 MG; Start 04/11/16 at 06:00 Miscellaneous Information 1 ea NOTE XX ; Start 04/10/16 at 19:00 Glucose (Glutose) 15 gm Q15M PRN PO DECREASED GLUCOSE; Start 04/10/16 at 19:00 Glucose (Glutose) 22.5 gm Q15M PRN PO DECREASED GLUCOSE; Start 04/10/16 at 19: 00 Dextrose (D50w Syringe) 25 ml Q15M PRN IV DECREASED GLUCOSE; Start 04/10/16 at 19:00 Dextrose (D50w Syringe) 50 ml Q15M PRN IV DECREASED GLUCOSE; Start 04/10/16 at 19:00 Glucagon (Glucagen) 1 mg Q15M PRN IM DECREASED GLUCOSE; Start 04/10/16 at 19:00 Glucose (Glutose) 15 gm Q15M PRN BUCCAL DECREASED GLUCOSE; Start 04/10/16 at 19 :00 Metoprolol Tartrate (Lopressor) 100 mg BID PO Last administered on 05/03/16 21:32; Admin Dose 100 MG; Start 04/11/16 at 09:00 Docusate Sodium (Colace) 100 mg Q12H PO Last administered on 05/03/16 10:00; Admin Dose 100 MG; Start 04/11/16 at 19:00 Polyethylene Glycol (Miralax) 17 gm DAILY PO Last administered on 05/03/16 09 :58; Admin Dose 17 GM; Start 04/11/16 at 13:00 Levofloxacin (Levaquin) 500 mg DAILY@06 PO Last administered on 05/03/16 05: 49; Admin Dose 500 MG; Start 04/15/16 at 14:00 Collagenase (Santyl) 1 applic DAILY TOP Last administered on 05/03/16 09:00; Admin Dose 1 APPLIC; Start 04/17/16 at 16:00 Allopurinol (Zyloprim) 300 mg DAILY PO Last administered on 05/03/16 10:00; Admin Dose 300 MG; Start 04/18/16 at 09:30 IV Flush (NS 10 ml) 10 ml PRN PRN IV IV PROTOCOL; Start 04/18/16 at 11:30 Dexamethasone (Decadron) 10 mg Q4H PRN IV REACTION Last administered on 16:58; Admin Dose 10 MG; Start 04/18/16 at 13:00 Diphenhydramine HCl 25 mg 25 mg Q4H PRN IV ALLERGIC REACTION Last administered on 04/24/16 16:42; Admin Dose 25 MG; Start 04/18/16 at 13:00 Ondansetron HCl/ Sodium Chloride (Zofran Inj/NS) 54 ml @ 110 mls/hr Q8H PRN IV NAUSEA Last administered on 04/30/16 09:51; Admin Dose 110 MLS/HR; Start 04/18/16 at 13:00 Amlodipine Besylate (Norvasc) 5 mg BID PO Last administered on 05/03/16 21:32 ; Admin Dose 5 MG; Start 04/21/16 at 21:00 Lisinopril (Zestril) 20 mg BID PO Last administered on 05/03/16 21:32; Admin Dose 20 MG; Start 04/21/16 at 21:00 Hydralazine HCl 10 mg 10 mg Q8H PRN IV ELEVATED BLOOD PRESSURE; Start at 12:00 Vancomycin HCl 1.25 gm/Sodium Chloride 250 ml @ 83.333 mls/ hr Q12H IVPB Last administered on 05/03/16 17:47; Admin Dose 83.333 MLS/HR; Start 04/24/16 at 16:00 Filgrastim/ Dextrose (Neupogen/D5W) 51.6 ml @ 103.2 mls/ hr DAILY@17 IVPB Last administered on 05/03/16 16:58; Admin Dose 103.2 MLS/HR; Start 04/25/16 at 17:00 Fluconazole (Diflucan) 100 mg DAILY PO Last administered on 05/03/16 10:01; Admin Dose 100 MG; Start 04/27/16 at 09:00 Acyclovir 400 mg 400 mg BID PO Last administered on 05/03/16 21:31; Admin Dose 400 MG; Start 04/26/16 at 11:45 Sodium Chloride (NS) 1,000 ml @ 75 mls/hr [id number] IV Last administered on 10:01; Admin Dose 75 MLS/HR; Start 04/29/16 at 12:00 Insulin Glargine (Lantus) 40 unit QHS SC Last administered on 05/03/16 21:34 ; Admin Dose 40 UNIT; Start 05/02/16 at 21:00 Prednisolone/ Sulfacetamide (Blephamide Oph) 2 drop QID BOTH EYES Last administered on 05/03/16 21:33; Admin Dose 2 DROP; Start 05/02/16 at 17:00 MALLIKA PEREZ M.D. May 03, 2016 23:27
[2016-05-04] MEDS: VANCOMYCIN 1.25 GM in SOD CHLORIDE 0.9% 250 ML IVPB SCH ×2 (03:44→16:31)
[2016-05-04] MEDS: PANTOPRAZOLE (EC) 40 MG TAB PO SCH (05:22)
[2016-05-04] MEDS: LEVOFLOXACIN 500 MG TAB PO SCH (05:22)
[2016-05-04] MEDS: DOCUSATE SODIUM 100 MG CAP PO SCH ×2 (05:22→19:00)
[2016-05-04 08:00] VITALS: BP 149/95; RESP 18
[2016-05-04] MEDS: INSULIN ASPART [NOVOLOG] 3 ML PEN SC SCH ×6 (09:21→19:23)
[2016-05-04] MEDS: PREDNISOLONE/SULFACETAMIDE 5 ML OPH BOTH EYES SCH ×4 (09:22→20:54)
[2016-05-04] MEDS: FLUCONAZOLE 100 MG TAB PO SCH (09:23)
[2016-05-04] MEDS: ACYCLOVIR 400 MG TAB PO SCH ×2 (09:23→20:53)
[2016-05-04] MEDS: METOPROLOL 100 MG TAB PO SCH ×2 (09:23→20:54)
[2016-05-04] MEDS: POLYETHYLENE GLYCOL 17 GM PACKET PO SCH (09:24)
[2016-05-04] MEDS: ALLOPURINOL 300 MG TAB PO SCH (09:24)
[2016-05-04] MEDS: LISINOPRIL 20 MG TAB PO SCH ×2 (09:24→20:54)
[2016-05-04] MEDS: AMLODIPINE 5 MG TAB PO SCH ×2 (09:24→20:54)
[2016-05-04] MEDS: COLLAGENASE 30 GM TUBE TOP SCH (09:25)
--- NOTE | 2016-05-04 11:28 | CONS ---
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 Initial labs also revealed pancytopenia with a Hg 6.7 and platelets in 30's. 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 He was spiking fevers but is now afebrile. Problems: Additional Assessment/Plan -Pt is now s/p cladribine 0.14mg/kg/day continues IV infusion x 5 days (04/18/16 -04/23/16) + Rituxan (04/24/16). -continue antibiotics per ID for osteomyelitis -neutropenia related to cladribine, continue to monitor. improving gradually -continue broad spectrum antibiotics for neutropenic fevers -f/u cultures -2 units prbc and hgb now more than 8 -platelets now on own better than 70 then 139 but yesterday decreased to 31 and now 28. Suspect related to chemotherapy though unclear why platelets improved then declined. Will review peripheral smear with path review. Will check DIC panel. Vancomycin can sometimes cause thrombocytopenia but patient has been on vanc since 04/10, and was on zosyn but from 04/10 to 04/15. Will continue to monitor, transfuse if plt < 10 or bleeding. -pt will need a repeat bone marrow bx in 3-4 weeks. this can be done as an out patient Problems: Consultation Date/Type/Reason Admit Date/Time Apr 10, 2016 at 16:55 Initial Consult Date 04/11/16 Type of Consultation: Hematology/Oncology Referring Provider: LAUREL ANDERSON 24 HR Interval Summary Free Text/Dictation Patient has no complaints, no bleeding, awaiting PT eval. Exam/Review of Systems Vital Signs Vitals Vital Signs Date Time Temp Pulse Resp B/P Pulse Ox O2 Delivery O2 Flow Rate FiO2 05/04/16 08:00 98.0 18 149/95 98 Room Air 05/03/16 20:20 88 Intake and Output 05/03/16 05/03/16 05/04/16 15:00 23:00 07:00 Intake Total 2490 ml 1335 ml Output Total 1200 ml 1800 ml Balance 1290 ml -465 ml Exam Constitutional: alert, oriented Head: atraumatic, normocephalic Eyes: other (bilateral blindness) ENMT: nl external ears & nose Neck: non-tender, supple Respiratory: clear to auscultation, normal air movement Cardiovascular: regular rate and rhythm Gastrointestinal: soft Musculoskeletal: nl extremities to inspection, nl gait and stance Extremities: normal pulses Results Result Diagram: 05/03/16 1602 05/03/16 0445 Results 24 hrs Laboratory Tests Test 05/03/16 13:12 05/03/16 16:02 05/03/16 16:56 05/03/16 20:06 Bedside Glucose 152 174 209 Basophils # Basophils % Blood Morphology Comment Differential Comment MANUAL DIFF Eosinophils # Eosinophils % Hematocrit 27.2 L Hemoglobin 9.0 L Lymphocytes # 0.5 L Lymphocytes % 90.0 H Mean Corpuscular Hemoglobin 29.9 Mean Corpuscular Hemoglobin Concent 33.1 Mean Corpuscular Volume 90.3 Mean Platelet Volume 8.5 Monocytes # Monocytes % Neutrophils # 0.1 L Neutrophils % 10.0 L Platelet Count 29 *L Red Blood Count 3.01 L Red Cell Distribution Width 22.0 H White Blood Count 0.6 L Test 05/04/16 07:48 Bedside Glucose 184 Medications Medications Current Medications Ondansetron HCl (Zofran Inj) 4 mg Q6H PRN IV NAUSEA AND/OR VOMITING Last administered on 04/30/16at 05:51; Admin Dose 4 MG; Start 04/10/16 at 19:00 Nitroglycerin (Nitroglycerin (Sl Tab) 0.4 Mg) 1 tab Q5M PRN SL CHEST PAIN; Start 04/10/16 at 19:00 Acetaminophen (Tylenol Tab) 650 mg Q6H PRN PO PAIN LEVEL 1-3 OR FEVER Last administered on 05/03/16at 11:29; Admin Dose 650 MG; Start 04/10/16 at 19:00 Acetaminophen/ Hydrocodone Bitart ([place] (5/325)) 1 tab Q6H PRN PO PAIN LEVEL 4 -6 Last administered on 04/14/16at 23:25; Admin Dose 1 TAB; Start 04/10/16 at 19: 00 Acetaminophen/ Hydrocodone Bitart ([place] (5/325)) 2 tab Q6H PRN PO PAIN LEVEL 7 -10 Last administered on 04/30/16at 00:30; Admin Dose 2 TAB; Start 04/10/16 at 19:00 Morphine Sulfate (morphine) 2 mg Q4H PRN IV PAIN LEVEL 7-10 Last administered on 04/29/16at 20:57; Admin Dose 2 MG; Start 04/10/16 at 19:00 Magnesium Hydroxide (Milk Of Mag) 30 ml DAILY PRN PO CONSTIPATION Last administered on 04/21/16at 05:00; Admin Dose 30 ML; Start 04/10/16 at 19:00 Bisacodyl (Dulcolax Supp) 10 mg DAILY PRN [place] CONSTIPATION; Start 04/10/16 at 19 :00 Pantoprazole (Protonix Tab) 40 mg DAILY@06 PO Last administered on 05/04/16at 05:22; Admin Dose 40 MG; Start 04/11/16 at 06:00 Miscellaneous Information 1 ea NOTE XX ; Start 04/10/16 at 19:00 Glucose (Glutose) 15 gm Q15M PRN PO DECREASED GLUCOSE; Start 04/10/16 at 19:00 Glucose (Glutose) 22.5 gm Q15M PRN PO DECREASED GLUCOSE; Start 04/10/16 at 19: 00 Dextrose (D50w Syringe) 25 ml Q15M PRN IV DECREASED GLUCOSE; Start 04/10/16 at 19:00 Dextrose (D50w Syringe) 50 ml Q15M PRN IV DECREASED GLUCOSE; Start 04/10/16 at 19:00 Glucagon (Glucagen) 1 mg Q15M PRN IM DECREASED GLUCOSE; Start 04/10/16 at 19:00 Glucose (Glutose) 15 gm Q15M PRN BUCCAL DECREASED GLUCOSE; Start 04/10/16 at 19 :00 Metoprolol Tartrate (Lopressor) 100 mg BID PO Last administered on 05/04/16at 09:23; Admin Dose 100 MG; Start 04/11/16 at 09:00 Docusate Sodium (Colace) 100 mg Q12H PO Last administered on 05/04/16at 05:22; Admin Dose 100 MG; Start 04/11/16 at 19:00 Polyethylene Glycol (Miralax) 17 gm DAILY PO Last administered on 05/04/16at 09 :24; Admin Dose 17 GM; Start 04/11/16 at 13:00 Levofloxacin (Levaquin) 500 mg DAILY@06 PO Last administered on 05/04/16 05: 22; Admin Dose 500 MG; Start 04/15/16 at 14:00 Collagenase (Santyl) 1 applic DAILY TOP Last administered on 05/04/16 09:25; Admin Dose 1 APPLIC; Start 04/17/16 at 16:00 Allopurinol (Zyloprim) 300 mg DAILY PO Last administered on 05/04/16 09:24; Admin Dose 300 MG; Start 04/18/16 at 09:30 IV Flush (NS 10 ml) 10 ml PRN PRN IV IV PROTOCOL; Start 04/18/16 at 11:30 Dexamethasone (Decadron) 10 mg Q4H PRN IV REACTION Last administered on 16:58; Admin Dose 10 MG; Start 04/18/16 at 13:00 Diphenhydramine HCl 25 mg 25 mg Q4H PRN IV ALLERGIC REACTION Last administered on 04/24/16 16:42; Admin Dose 25 MG; Start 04/18/16 at 13:00 Ondansetron HCl/ Sodium Chloride (Zofran Inj/NS) 54 ml @ 110 mls/hr Q8H PRN IV NAUSEA Last administered on 04/30/16 09:51; Admin Dose 110 MLS/HR; Start 04/18/16 at 13:00 Amlodipine Besylate (Norvasc) 5 mg BID PO Last administered on 05/04/16 09:24 ; Admin Dose 5 MG; Start 04/21/16 at 21:00 Lisinopril (Zestril) 20 mg BID PO Last administered on 05/04/16 09:24; Admin Dose 20 MG; Start 04/21/16 at 21:00 Hydralazine HCl 10 mg 10 mg Q8H PRN IV ELEVATED BLOOD PRESSURE; Start at 12:00 Vancomycin HCl 1.25 gm/Sodium Chloride 250 ml @ 83.333 mls/ hr Q12H IVPB Last administered on 05/04/16 03:44; Admin Dose 83.333 MLS/HR; Start 04/24/16 at 16:00 Filgrastim/ Dextrose (Neupogen/D5W) 51.6 ml @ 103.2 mls/ hr DAILY@17 IVPB Last administered on 05/03/16 16:58; Admin Dose 103.2 MLS/HR; Start 04/25/16 at 17:00 Fluconazole (Diflucan) 100 mg DAILY PO Last administered on 05/04/16 09:23; Admin Dose 100 MG; Start 04/27/16 at 09:00 Acyclovir 400 mg 400 mg BID PO Last administered on 05/04/16 09:23; Admin Dose 400 MG; Start 04/26/16 at 11:45 Sodium Chloride (NS) 1,000 ml @ 75 mls/hr [id number] IV Last administered on 10:01; Admin Dose 75 MLS/HR; Start 04/29/16 at 12:00 Insulin Glargine (Lantus) 40 unit QHS SC Last administered on 05/03/16 21:34 ; Admin Dose 40 UNIT; Start 05/02/16 at 21:00 Prednisolone/ Sulfacetamide (Blephamide Oph) 2 drop QID BOTH EYES Last administered on 05/04/16 09:22; Admin Dose 2 DROP; Start 05/02/16 at 17:00 JC ERNST MD May 04, 2016 11:28
[2016-05-04] MEDS: SOD CHLORIDE 0.9% 1,000 ML IV SCH (12:00)
[2016-05-04 13:05] LABS: HEMOGLOBIN 8.9 g/dl (14.0-18.0); MEAN CORPUSCULAR HGB CONC 33.1 g/dl (32.0-37.0); MEAN CORPUSCULAR VOLUME 90.6 fl (82.0-101.0); MEAN PLATELET VOLUME 8.9 fl (7.4-10.4); RED BLOOD COUNT 2.98 10^6/ul (4.70-6.10); UNCORRECTED WBC 0.6 10^3/ul (4.8-10.8); WHITE BLOOD COUNT 0.6 10^3/ul (4.8-10.8)
[2016-05-04 13:10] LABS: CONDITION 1; LH ANALYZER COMMENTS 1; SUSPECT 1
[2016-05-04 13:12] LABS: PLATELET COUNT 28 10^3/UL (140-440)
[2016-05-04 13:14] LABS: ALBUMIN 3.2 g/dl (3.3-4.9)
[2016-05-04 13:15] LABS: POTASSIUM 3.4 mmol/L (3.5-5.1)
[2016-05-04 13:17] LABS: ALBUMIN/GLOBULIN RATIO 0.8; BILIRUBIN,INDIRECT 0.6 mg/dl (0-1.1); BILIRUBIN,TOTAL 0.6 mg/dl (0.2-1.3); CALCIUM 8.2 mg/dl (8.4-10.2); CREATININE 0.96 mg/dl (0.61-1.24); TOTAL PROTEIN 7.2 g/dl (6.1-8.1)
[2016-05-04 14:05] LABS: LYMPHOCYTES # 0.5 10^3/ul (0.8-2.9); NEUTROPHIL # 0.1 10^3/ul (1.6-7.5); PLATELET ESTIMATE PLT APPEAR DECREASED
--- NOTE | 2016-05-04 18:29 | CONS ---
Date/Time of Note Date/Time of Note DATE: 05/04/16 TIME: 18:28 Consult Date/Type/Reason Admit Date/Time Apr 10, 2016 at 16:55 Initial Consult Date 04/11/16 Type of Consultation: ID Ordering Provider: LAUREL ANDERSON Subjective awake, feels good, no fevers, nad Objective Vital Signs Date Time Temp Pulse Resp B/P Pulse Ox O2 Delivery O2 Flow Rate FiO2 05/04/16 08:00 98.0 18 149/95 98 Room Air 05/03/16 20:20 88 Intake and Output 05/03/16 05/03/16 05/04/16 15:00 23:00 07:00 Intake Total 2490 ml 1335 ml Output Total 1200 ml 1800 ml Balance 1290 ml -465 ml Results/Medications Result Diagram: 05/04/16 1230 05/04/16 1230 Results 24 hrs Laboratory Tests Test 05/03/16 20:06 05/04/16 07:48 05/04/16 12:30 05/04/16 12:37 Bedside Glucose 209 184 217 Alanine Aminotransferase (ALT/SGPT) 48 Albumin 3.2 L Albumin/Globulin Ratio 0.80 Alkaline Phosphatase 132 H Anion Gap 14 Aspartate Amino Transf (AST/SGOT) 23 Band Neutrophils % 4.0 Basophils # Basophils % Blood Morphology Comment Blood Urea Nitrogen 15 Calcium Level 8.2 L Carbon Dioxide Level 27 Chloride Level 104 Creatinine 0.96 Differential Comment MANUAL DIFF Direct Bilirubin 0.00 Eosinophils # 0.0 Eosinophils % 6.0 Globulin 4.00 H Glucose Level 215 # Hematocrit 27.0 L Hemoglobin 8.9 L Indirect Bilirubin 0.6 Lymphocytes # 0.5 L Lymphocytes % 75.0 H Mean Corpuscular Hemoglobin 30.0 Mean Corpuscular Hemoglobin Concent 33.1 Mean Corpuscular Volume 90.6 Mean Platelet Volume 8.9 Monocytes # 0.0 L Monocytes % 1.0 Neutrophils # 0.1 L Neutrophils % 14.0 L Platelet Count 28 *L Platelet Estimate PLT APPEAR DECREASED Potassium Level 3.4 L Red Blood Count 2.98 L Red Cell Distribution Width 22.0 H Sodium Level 142 Total Bilirubin 0.6 Total Protein 7.2 White Blood Count 0.6 L Test 05/04/16 16:30 Bedside Glucose 215 Medications Current Medications Ondansetron HCl (Zofran Inj) 4 mg Q6H PRN IV NAUSEA AND/OR VOMITING Last administered on 04/30/16at 05:51; Admin Dose 4 MG; Start 04/10/16 at 19:00 Nitroglycerin (Nitroglycerin (Sl Tab) 0.4 Mg) 1 tab Q5M PRN SL CHEST PAIN; Start 04/10/16 at 19:00 Acetaminophen (Tylenol Tab) 650 mg Q6H PRN PO PAIN LEVEL 1-3 OR FEVER Last administered on 05/03/16at 11:29; Admin Dose 650 MG; Start 04/10/16 at 19:00 Acetaminophen/ Hydrocodone Bitart ([place] (5/325)) 1 tab Q6H PRN PO PAIN LEVEL 4 -6 Last administered on 04/14/16at 23:25; Admin Dose 1 TAB; Start 04/10/16 at 19: 00 Acetaminophen/ Hydrocodone Bitart ([place] (5/325)) 2 tab Q6H PRN PO PAIN LEVEL 7 -10 Last administered on 04/30/16at 00:30; Admin Dose 2 TAB; Start 04/10/16 at 19:00 Morphine Sulfate (morphine) 2 mg Q4H PRN IV PAIN LEVEL 7-10 Last administered on 04/29/16at 20:57; Admin Dose 2 MG; Start 04/10/16 at 19:00 Magnesium Hydroxide (Milk Of Mag) 30 ml DAILY PRN PO CONSTIPATION Last administered on 04/21/16at 05:00; Admin Dose 30 ML; Start 04/10/16 at 19:00 Bisacodyl (Dulcolax Supp) 10 mg DAILY PRN [place] CONSTIPATION; Start 04/10/16 at 19 :00 Pantoprazole (Protonix Tab) 40 mg DAILY@06 PO Last administered on 05/04/16at 05:22; Admin Dose 40 MG; Start 04/11/16 at 06:00 Miscellaneous Information 1 ea NOTE XX ; Start 04/10/16 at 19:00 Glucose (Glutose) 15 gm Q15M PRN PO DECREASED GLUCOSE; Start 04/10/16 at 19:00 Glucose (Glutose) 22.5 gm Q15M PRN PO DECREASED GLUCOSE; Start 04/10/16 at 19: 00 Dextrose (D50w Syringe) 25 ml Q15M PRN IV DECREASED GLUCOSE; Start 04/10/16 at 19:00 Dextrose (D50w Syringe) 50 ml Q15M PRN IV DECREASED GLUCOSE; Start 04/10/16 at 19:00 Glucagon (Glucagen) 1 mg Q15M PRN IM DECREASED GLUCOSE; Start 04/10/16 at 19:00 Glucose (Glutose) 15 gm Q15M PRN BUCCAL DECREASED GLUCOSE; Start 04/10/16 at 19 :00 Metoprolol Tartrate (Lopressor) 100 mg BID PO Last administered on 05/04/16 09:23; Admin Dose 100 MG; Start 04/11/16 at 09:00 Docusate Sodium (Colace) 100 mg Q12H PO Last administered on 05/04/16 05:22; Admin Dose 100 MG; Start 04/11/16 at 19:00 Polyethylene Glycol (Miralax) 17 gm DAILY PO Last administered on 05/04/16 09 :24; Admin Dose 17 GM; Start 04/11/16 at 13:00 Levofloxacin (Levaquin) 500 mg DAILY@06 PO Last administered on 05/04/16 05: 22; Admin Dose 500 MG; Start 04/15/16 at 14:00 Collagenase (Santyl) 1 applic DAILY TOP Last administered on 05/04/16 09:25; Admin Dose 1 APPLIC; Start 04/17/16 at 16:00 Allopurinol (Zyloprim) 300 mg DAILY PO Last administered on 05/04/16 09:24; Admin Dose 300 MG; Start 04/18/16 at 09:30 IV Flush (NS 10 ml) 10 ml PRN PRN IV IV PROTOCOL; Start 04/18/16 at 11:30 Dexamethasone (Decadron) 10 mg Q4H PRN IV REACTION Last administered on 16:58; Admin Dose 10 MG; Start 04/18/16 at 13:00 Diphenhydramine HCl 25 mg 25 mg Q4H PRN IV ALLERGIC REACTION Last administered on 04/24/16 16:42; Admin Dose 25 MG; Start 04/18/16 at 13:00 Ondansetron HCl/ Sodium Chloride (Zofran Inj/NS) 54 ml @ 110 mls/hr Q8H PRN IV NAUSEA Last administered on 04/30/16 09:51; Admin Dose 110 MLS/HR; Start 04/18/16 at 13:00 Amlodipine Besylate (Norvasc) 5 mg BID PO Last administered on 05/04/16 09:24 ; Admin Dose 5 MG; Start 04/21/16 at 21:00 Lisinopril (Zestril) 20 mg BID PO Last administered on 05/04/16 09:24; Admin Dose 20 MG; Start 04/21/16 at 21:00 Hydralazine HCl 10 mg 10 mg Q8H PRN IV ELEVATED BLOOD PRESSURE; Start at 12:00 Vancomycin HCl 1.25 gm/Sodium Chloride 250 ml @ 83.333 mls/ hr Q12H IVPB Last administered on 05/04/16 16:31; Admin Dose 83.333 MLS/HR; Start 04/24/16 at 16:00 Filgrastim/ Dextrose (Neupogen/D5W) 51.6 ml @ 103.2 mls/ hr DAILY@17 IVPB Last administered on 05/03/16 16:58; Admin Dose 103.2 MLS/HR; Start 04/25/16 at 17:00 Fluconazole (Diflucan) 100 mg DAILY PO Last administered on 05/04/16at 09:23; Admin Dose 100 MG; Start 04/27/16 at 09:00 Acyclovir (Zovirax) 400 mg BID PO Last administered on 05/04/16 09:23; Admin Dose 400 MG; Start 04/26/16 at 11:45 Insulin Glargine (Lantus) 40 unit QHS SC Last administered on 05/03/16at 21:34 ; Admin Dose 40 UNIT; Start 05/02/16 at 21:00 Prednisolone/ Sulfacetamide (Blephamide Oph) 2 drop QID BOTH EYES Last administered on 05/04/16at 12:45; Admin Dose 2 DROP; Start 05/02/16 at 17:00 Assessment/Plan Chief Complaint/Hosp Course ANTIMICROBIALS: 1. Vancomycin 2. Levaquin. 3. Diflucan 4. Acyclovir Indwellings: LUE PICC 04/18/16 PHYSICAL EXAMINATION: GENERAL: Obese, well-developed, middle-aged man who is awake, in no distress. HEENT: Head atraumatic, normocephalic. Sclerae anicteric. Buccal mucosa pink. NECK: Supple. Trachea midline. LUNGS: Chest rise symmetrical. Breath sounds clear, diminished at bases. HEART: S1, S2. ABDOMEN: Soft. Bowel tones present. EXTREMITIES: With right foot edema ASSESSMENT: 1. 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 4. Diabetes. 5. Hypertension. 6. Legally blind. PLAN: Remains stable, continue abx, chemotherapy/Neupogen per oncology. Logan cx prn DW staff Problems: JUVENAL SANCHEZ NP May 04, 2016 18:29
[2016-05-04] MEDS: DEXTROSE 5% IVPB SCH (19:21)
[2016-05-04] MEDS: FILGRASTIM IVPB SCH (19:21)
[2016-05-04 20:00] VITALS: BP 135/89; PULSE 97; RESP 17
[2016-05-04] MEDS: HYDROCODONE/APAP (5/325) TAB PO PRN (20:53)
[2016-05-04] MEDS: INSULIN GLARGINE [LANtus] 3 ML PEN SC SCH (21:02)
--- NOTE | 2016-05-04 22:45 | PN ---
Date/Time of Note Date/Time of Note DATE: 05/04/16 TIME: 22:38 Assessment/Plan VTE Prophylaxis VTE Prophylaxis Intervention: SCD's Lines/Catheters IV Catheter Type (from Nrsg): PICC Line Central line still needed: Yes (receiving chemotherapy) Urinary Cath still in place: No Assessment/Plan Assessment/Plan [facility] 1. Hospital day 25 for this 55-year-old man with a new diagnosis of hairy cell leukemia, admitted with acute on chronic anemia and thrombocytopenia. He is HIV- negative, but with skin lesions suggestive of Kaposi's sarcoma. ANC unchanged today at 100/ul, on WBC of 0.6k/ul. Platelets stable at 28k/ul, with no bleeding. Hct stable at 27%. * Continue Neupogen * Continue Acyclovir and Diflucan * Screening for BK/COOPER viruses NEGATIVE, as a prelude to rituximab infusion for the HCL. 2. Right 1st and 2nd toe cellulitis/osteomyelitis on MRI. Neutropenic post chemo.JOSE J-negative for endocarditis. Blood and urine cultures from 04/26/16 both grew Coagulase-negative Staph, sensitive to Vancomycin. * Continue Vancomycin and Levaquin 3. Urine culture positive for Coag neg staph and Radha, but with low colony count. 4. Blood culture bottle showing GPC 1/2. 5. Diabetes. HbA1c 7.2%. Blood sugars somewhat higher today, with bedtime glucose of 395mg/dl tonight. He received his normal Lantus 40u last night, and 8u of preprandial insulin tonight--but it appears to have come after dinner by a couple hours, which may explain the extreme sugar. * Continue Tradjenta * Continue Lantus dose of 40 units and preprandial insulin at 6 units * Controlled carbohydrate diet * Pre-prandial insulin really needs to be given prior to eating. 6. Cardiomegaly, EF 50%. No further episodes of NSVT * Continue Lopressor/beta-alma 7. Hypertension. Mildly elevated today. * Continue Carvedilol, Norvasc and Lisinopril. * Use hydralazine PRN 8. Constipation * Continue Miralax and Colace 9. 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 Concerns for possible CMV retinitis * Continue acyclovir * Ophthalmology evaluation as an outpatient 10. Prophylaxis: Protonix for GI prophylaxis and SCDs for DVT prophylaxis. 11. DISPOSITION: Waiting for normalization of the WBC count prior to discharge home. Bárbara Perez MD PhD [phone] Subjective 24 Hr Interval Summary Free Text/Dictation Generally comfortable. Had some light sensation today when climbing into the shower, which is unusual. No GI or respiratory symptoms. Exam/Review of Systems Vital Signs Vitals Vital Signs Date Time Temp Pulse Resp B/P Pulse Ox O2 Delivery O2 Flow Rate FiO2 05/04/16 20:00 98.4 97 17 135/89 100 Room Air Intake and Output 05/03/16 05/03/16 05/04/16 14:59 22:59 06:59 Intake Total 2490 ml 1335 ml Output Total 1200 ml 1800 ml Balance 1290 ml -465 ml Exam Constitutional: Friendly, comfortable, visually impaired HEENT: Conjunctiva deeply blood-shot bilaterally. Indistinct corneal margins. Respiratory: Clear bilaterally, good air movement Cardiovascular: Symmetric pulses, regular rate and rhythm Gastrointestinal: non-tender, soft, no hepatosplenomegaly Musculoskeletal: Right 1st and 2nd toes wrapped for ulcerations; bandage clean and dry. Extremities: normal pulses; no edema, clubbing or cyanosis 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: [employer] TE[employer]ICIAN II-XII intact, nl mental status, nl speech, nl strength, blind. Skin: Nodular lesions down both arms suggestive of Kaposi's sarcoma; non- excoriated. Results Result Diagram: 05/04/16 1230 05/04/16 1230 Results 24 hrs Laboratory Tests Test 05/04/16 07:48 05/04/16 12:30 05/04/16 12:37 05/04/16 16:30 Bedside Glucose 184 217 215 Alanine Aminotransferase (ALT/SGPT) 48 Albumin 3.2 L Albumin/Globulin Ratio 0.80 Alkaline Phosphatase 132 H Anion Gap 14 Aspartate Amino Transf (AST/SGOT) 23 Band Neutrophils % 4.0 Basophils # Basophils % Blood Morphology Comment Blood Urea Nitrogen 15 Calcium Level 8.2 L Carbon Dioxide Level 27 Chloride Level 104 Creatinine 0.96 Differential Comment MANUAL DIFF Direct Bilirubin 0.00 Eosinophils # 0.0 Eosinophils % 6.0 Globulin 4.00 H Glucose Level 215 # Hematocrit 27.0 L Hemoglobin 8.9 L Indirect Bilirubin 0.6 Lymphocytes # 0.5 L Lymphocytes % 75.0 H Mean Corpuscular Hemoglobin 30.0 Mean Corpuscular Hemoglobin Concent 33.1 Mean Corpuscular Volume 90.6 Mean Platelet Volume 8.9 Monocytes # 0.0 L Monocytes % 1.0 Neutrophils # 0.1 L Neutrophils % 14.0 L Platelet Count 28 *L Platelet Estimate PLT APPEAR DECREASED Potassium Level 3.4 L Red Blood Count 2.98 L Red Cell Distribution Width 22.0 H Sodium Level 142 Total Bilirubin 0.6 Total Protein 7.2 White Blood Count 0.6 L Test 05/04/16 20:57 Bedside Glucose 395 H Medications Medications Current Medications Ondansetron HCl (Zofran Inj) 4 mg Q6H PRN IV NAUSEA AND/OR VOMITING Last administered on 04/30/16 05:51; Admin Dose 4 MG; Start 04/10/16 at 19:00 Nitroglycerin (Nitroglycerin (Sl Tab) 0.4 Mg) 1 tab Q5M PRN SL CHEST PAIN; Start 04/10/16 at 19:00 Acetaminophen (Tylenol Tab) 650 mg Q6H PRN PO PAIN LEVEL 1-3 OR FEVER Last administered on 05/03/16at 11:29; Admin Dose 650 MG; Start 04/10/16 at 19:00 Acetaminophen/ Hydrocodone Bitart ([place] (5/325)) 1 tab Q6H PRN PO PAIN LEVEL 4 -6 Last administered on 04/14/16 23:25; Admin Dose 1 TAB; Start 04/10/16 at 19: 00 Acetaminophen/ Hydrocodone Bitart ([place] (5/325)) 2 tab Q6H PRN PO PAIN LEVEL 7 -10 Last administered on 05/04/16 20:53; Admin Dose 2 TAB; Start 04/10/16 at 19:00 Morphine Sulfate (morphine) 2 mg Q4H PRN IV PAIN LEVEL 7-10 Last administered on 04/29/16 20:57; Admin Dose 2 MG; Start 04/10/16 at 19:00 Magnesium Hydroxide (Milk Of Mag) 30 ml DAILY PRN PO CONSTIPATION Last administered on 04/21/16 05:00; Admin Dose 30 ML; Start 04/10/16 at 19:00 Bisacodyl (Dulcolax Supp) 10 mg DAILY PRN [place] CONSTIPATION; Start 04/10/16 at 19 :00 Pantoprazole (Protonix Tab) 40 mg DAILY@06 PO Last administered on 05/04/16 05:22; Admin Dose 40 MG; Start 04/11/16 at 06:00 Miscellaneous Information 1 ea NOTE XX ; Start 04/10/16 at 19:00 Glucose (Glutose) 15 gm Q15M PRN PO DECREASED GLUCOSE; Start 04/10/16 at 19:00 Glucose (Glutose) 22.5 gm Q15M PRN PO DECREASED GLUCOSE; Start 04/10/16 at 19: 00 Dextrose (D50w Syringe) 25 ml Q15M PRN IV DECREASED GLUCOSE; Start 04/10/16 at 19:00 Dextrose (D50w Syringe) 50 ml Q15M PRN IV DECREASED GLUCOSE; Start 04/10/16 at 19:00 Glucagon (Glucagen) 1 mg Q15M PRN IM DECREASED GLUCOSE; Start 04/10/16 at 19:00 Glucose (Glutose) 15 gm Q15M PRN BUCCAL DECREASED GLUCOSE; Start 04/10/16 at 19 :00 Metoprolol Tartrate (Lopressor) 100 mg BID PO Last administered on 05/04/16at 20:54; Admin Dose 100 MG; Start 04/11/16 at 09:00 Docusate Sodium (Colace) 100 mg Q12H PO Last administered on 05/04/16 05:22; Admin Dose 100 MG; Start 04/11/16 at 19:00 Polyethylene Glycol (Miralax) 17 gm DAILY PO Last administered on 05/04/16at 09 :24; Admin Dose 17 GM; Start 04/11/16 at 13:00 Levofloxacin (Levaquin) 500 mg DAILY@06 PO Last administered on 05/04/16at 05: 22; Admin Dose 500 MG; Start 04/15/16 at 14:00 Collagenase (Santyl) 1 applic DAILY TOP Last administered on 05/04/16 09:25; Admin Dose 1 APPLIC; Start 04/17/16 at 16:00 Allopurinol (Zyloprim) 300 mg DAILY PO Last administered on 05/04/16 09:24; Admin Dose 300 MG; Start 04/18/16 at 09:30 IV Flush (NS 10 ml) 10 ml PRN PRN IV IV PROTOCOL; Start 04/18/16 at 11:30 Dexamethasone (Decadron) 10 mg Q4H PRN IV REACTION Last administered on at 16:58; Admin Dose 10 MG; Start 04/18/16 at 13:00 Diphenhydramine HCl 25 mg 25 mg Q4H PRN IV ALLERGIC REACTION Last administered on 04/24/16 16:42; Admin Dose 25 MG; Start 04/18/16 at 13:00 Ondansetron HCl/ Sodium Chloride (Zofran Inj/NS) 54 ml @ 110 mls/hr Q8H PRN IV NAUSEA Last administered on 04/30/16 09:51; Admin Dose 110 MLS/HR; Start 04/18/16 at 13:00 Amlodipine Besylate (Norvasc) 5 mg BID PO Last administered on 05/04/16 20:54 ; Admin Dose 5 MG; Start 04/21/16 at 21:00 Lisinopril (Zestril) 20 mg BID PO Last administered on 05/04/16 20:54; Admin Dose 20 MG; Start 04/21/16 at 21:00 Hydralazine HCl 10 mg 10 mg Q8H PRN IV ELEVATED BLOOD PRESSURE; Start at 12:00 Vancomycin HCl 1.25 gm/Sodium Chloride 250 ml @ 83.333 mls/ hr Q12H IVPB Last administered on 05/04/16 16:31; Admin Dose 83.333 MLS/HR; Start 04/24/16 at 16:00 Filgrastim/ Dextrose (Neupogen/D5W) 51.6 ml @ 103.2 mls/ hr DAILY@17 IVPB Last administered on 05/04/16 19:21; Admin Dose 103.2 MLS/HR; Start 04/25/16 at 17:00 Fluconazole (Diflucan) 100 mg DAILY PO Last administered on 05/04/16 09:23; Admin Dose 100 MG; Start 04/27/16 at 09:00 Acyclovir (Zovirax) 400 mg BID PO Last administered on 05/04/16 20:53; Admin Dose 400 MG; Start 04/26/16 at 11:45 Insulin Glargine (Lantus) 40 unit QHS SC Last administered on 05/04/16 21:02 ; Admin Dose 40 UNIT; Start 05/02/16 at 21:00 Prednisolone/ Sulfacetamide (Blephamide Oph) 2 drop QID BOTH EYES Last administered on 12/29/16at 20:54; Admin Dose 2 DROP; Start 05/02/16 at 17:00 MALLIKA PEREZ M.D. May 04, 2016 22:45
[2016-05-05] MEDS: VANCOMYCIN 1.25 GM in SOD CHLORIDE 0.9% 250 ML IVPB SCH ×2 (04:43→18:48)
[2016-05-05 05:57] LABS: POTASSIUM 3.2 mmol/L (3.5-5.1)
[2016-05-05 06:00] LABS: ALBUMIN/GLOBULIN RATIO 0.81; BILIRUBIN,INDIRECT 0.5 mg/dl (0-1.1); BILIRUBIN,TOTAL 0.5 mg/dl (0.2-1.3); TOTAL PROTEIN 6.7 g/dl (6.1-8.1)
[2016-05-05 06:05] LABS: HEMATOCRIT 25.5 % (42.0-52.0); HEMOGLOBIN 8.5 g/dl (14.0-18.0); MEAN CORPUSCULAR HEMOGLOBIN 30.2 pg (29.0-33.0); MEAN CORPUSCULAR HGB CONC 33.3 g/dl (32.0-37.0); MEAN CORPUSCULAR VOLUME 90.8 fl (82.0-101.0); MEAN PLATELET VOLUME 9.1 fl (7.4-10.4); RED BLOOD COUNT 2.81 10^6/ul (4.70-6.10); RED CELL DISTRIBUTION WIDTH 21.5 % (11.5-14.5); UNCORRECTED WBC 0.5 10^3/ul (4.8-10.8); WHITE BLOOD COUNT 0.5 10^3/ul (4.8-10.8)
[2016-05-05 06:28] LABS: PLATELET COUNT 30 10^3/UL (140-440)
[2016-05-05 06:29] LABS: CONDITION 1; LH ANALYZER COMMENTS 1; SUSPECT 1
[2016-05-05] MEDS: LEVOFLOXACIN 500 MG TAB PO SCH (06:50)
[2016-05-05] MEDS: DOCUSATE SODIUM 100 MG CAP PO SCH ×2 (06:50→19:00)
[2016-05-05] MEDS: PANTOPRAZOLE (EC) 40 MG TAB PO SCH (06:50)
[2016-05-05 08:00] VITALS: BP 133/77; PULSE 81; RESP 17
[2016-05-05 08:09] LABS: PLATELET COUNT 33 10^3/UL (140-440)
[2016-05-05 08:13] LABS: INR 1.11; PROTIME 14.3 Sec (12.2-14.2); PT RATIO 1.1
[2016-05-05 08:14] LABS: PARTIAL THROMBOPLASTIN TIME 29.6 Sec (25.0-35.0)
[2016-05-05 08:17] LABS: D-DIMER 1733.44 ng/ml (<460)
[2016-05-05 08:18] LABS: THROMBIN TIME 16.5 SEC (13.8-19.1)
[2016-05-05] MEDS: PREDNISOLONE/SULFACETAMIDE 5 ML OPH BOTH EYES SCH ×4 (09:47→21:44)
[2016-05-05] MEDS: POLYETHYLENE GLYCOL 17 GM PACKET PO SCH (09:47)
[2016-05-05] MEDS: LISINOPRIL 20 MG TAB PO SCH ×2 (09:48→21:00)
[2016-05-05] MEDS: AMLODIPINE 5 MG TAB PO SCH ×2 (09:48→21:00)
[2016-05-05] MEDS: ALLOPURINOL 300 MG TAB PO SCH (09:48)
[2016-05-05] MEDS: METOPROLOL 100 MG TAB PO SCH ×2 (09:48→21:00)
[2016-05-05] MEDS: ACYCLOVIR 400 MG TAB PO SCH ×2 (09:48→21:06)
[2016-05-05] MEDS: FLUCONAZOLE 100 MG TAB PO SCH (09:48)
[2016-05-05] MEDS: COLLAGENASE 30 GM TUBE TOP SCH (09:49)
[2016-05-05 10:04] LABS: FIBRIN SPLIT PRODUCT <10 ug/ml (<10)
[2016-05-05] MEDS: INSULIN ASPART [NOVOLOG] 3 ML PEN SC SCH ×6 (10:05→17:50)
[2016-05-05] MEDS: ACETAMINOPHEN 325 MG TAB PO PRN (10:07)
[2016-05-05 10:10] LABS: LYMPHOCYTES # 0.5 10^3/ul (0.8-2.9); PLATELET ESTIMATE PLT APPEAR DECREASED
--- NOTE | 2016-05-05 12:17 | CONS ---
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 Initial labs also revealed pancytopenia with a Hg 6.7 and platelets in 30's. 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 He was spiking fevers but is now afebrile. Problems: Additional Assessment/Plan -Pt is now s/p cladribine 0.14mg/kg/day continues IV infusion x 5 days (04/18/16 -04/23/16) + Rituxan (04/24/16). -continue antibiotics per ID for osteomyelitis -neutropenia related to cladribine, continue to monitor. improving gradually -continue broad spectrum antibiotics for neutropenic fevers -f/u cultures -2 units prbc and hgb now more than 8 -platelets now on own better than 70 then 139 but yesterday decreased to 31 and now 28. Suspect related to chemotherapy though unclear why platelets improved then declined. Labs not consistent with DIC. Vancomycin can sometimes cause thrombocytopenia but patient has been on vanc since 04/10, and was on zosyn but from 04/10 to 04/15. Will continue to monitor, transfuse if plt < 10 or bleeding. -Peripheral smear reviewed by path, with moderate anisocytosis, no blasts, no increased polychromasia so no evidence of hemolysis on 05/04 -pt will need a repeat bone marrow bx in 3-4 weeks. this can be done as an out patient Problems: Consultation Date/Type/Reason Admit Date/Time Apr 10, 2016 at 16:55 Initial Consult Date 04/11/16 Type of Consultation: Hematology/Oncology Referring Provider: LAUREL ANDERSON 24 HR Interval Summary Free Text/Dictation Patient doing well, no complaints. He states that he worked with physical therapy earlier. Exam/Review of Systems Vital Signs Vitals Vital Signs Date Time Temp Pulse Resp B/P Pulse Ox O2 Delivery O2 Flow Rate FiO2 05/05/16 08:00 98.4 81 17 133/77 95 Room Air Intake and Output 05/04/16 05/04/16 05/05/16 15:00 23:00 07:00 Intake Total 1200 ml 450 ml Output Total 1800 ml 1850 ml Balance -600 ml -1400 ml Exam Constitutional: alert, oriented Head: atraumatic, normocephalic Eyes: other (bilateral blindness) ENMT: nl external ears & nose Neck: non-tender, supple Respiratory: clear to auscultation, normal air movement Cardiovascular: regular rate and rhythm Gastrointestinal: soft Musculoskeletal: nl extremities to inspection, nl gait and stance Extremities: normal pulses Results Result Diagram: 05/05/16 0745 05/05/16 0455 Results 24 hrs Laboratory Tests Test 05/04/16 12:30 05/04/16 12:37 05/04/16 16:30 05/04/16 20:57 Alanine Aminotransferase (ALT/SGPT) 48 Albumin 3.2 L Albumin/Globulin Ratio 0.80 Alkaline Phosphatase 132 H Anion Gap 14 Aspartate Amino Transf (AST/SGOT) 23 Band Neutrophils % 4.0 Basophils # Basophils % Blood Morphology Comment Blood Urea Nitrogen 15 Calcium Level 8.2 L Carbon Dioxide Level 27 Chloride Level 104 Creatinine 0.96 Differential Comment MANUAL DIFF Direct Bilirubin 0.00 Eosinophils # 0.0 Eosinophils % 6.0 Globulin 4.00 H Glucose Level 215 # Hematocrit 27.0 L Hemoglobin 8.9 L Indirect Bilirubin 0.6 Lymphocytes # 0.5 L Lymphocytes % 75.0 H Mean Corpuscular Hemoglobin 30.0 Mean Corpuscular Hemoglobin Concent 33.1 Mean Corpuscular Volume 90.6 Mean Platelet Volume 8.9 Monocytes # 0.0 L Monocytes % 1.0 Neutrophils # 0.1 L Neutrophils % 14.0 L Platelet Count 28 *L Platelet Estimate PLT APPEAR DECREASED Potassium Level 3.4 L Red Blood Count 2.98 L Red Cell Distribution Width 22.0 H Sodium Level 142 Total Bilirubin 0.6 Total Protein 7.2 White Blood Count 0.6 L Bedside Glucose 217 215 395 H Test 05/05/16 04:55 05/05/16 07:45 05/05/16 11:16 Alanine Aminotransferase (ALT/SGPT) 47 Albumin 3.0 L Albumin/Globulin Ratio 0.81 Alkaline Phosphatase 116 Anion Gap 15 Aspartate Amino Transf (AST/SGOT) 19 Basophils # Basophils % Blood Morphology Comment Blood Urea Nitrogen 15 Calcium Level 8.0 L Carbon Dioxide Level 28 Chloride Level 103 Creatinine 1.00 Direct Bilirubin 0.00 Eosinophils # 0.0 Eosinophils % 3.0 Globulin 3.70 H Glucose Level 221 H Hematocrit 25.5 L Hemoglobin 8.5 L Indirect Bilirubin 0.5 Lymphocytes # 0.5 L Lymphocytes % 91.0 H Mean Corpuscular Hemoglobin 30.2 Mean Corpuscular Hemoglobin Concent 33.3 Mean Corpuscular Volume 90.8 Mean Platelet Volume 9.1 Monocytes # Monocytes % Neutrophils # 0.0 L Neutrophils % 6.0 L Platelet Count 30 L 33 L Platelet Estimate PLT APPEAR DECREASED Potassium Level 3.2 L Red Blood Count 2.81 L Red Cell Distribution Width 21.5 H Sodium Level 143 Total Bilirubin 0.5 Total Protein 6.7 White Blood Count 0.5 L Activated Partial Thromboplast Time 29.6 Bedside Glucose 209 241 H D-Dimer 1733.44 #H D-Dimer Comment Fibrinogen 506.0 #H INR International Normalized Ratio 1.11 Plasma Fibrin Degradation Products <10 Prothrombin Time 14.3 H Prothrombin Time Ratio 1.1 Thrombin Time 16.5 Medications Medications Current Medications Ondansetron HCl (Zofran Inj) 4 mg Q6H PRN IV NAUSEA AND/OR VOMITING Last administered on 04/30/16at 05:51; Admin Dose 4 MG; Start 04/10/16 at 19:00 Nitroglycerin (Nitroglycerin (Sl Tab) 0.4 Mg) 1 tab Q5M PRN SL CHEST PAIN; Start 04/10/16 at 19:00 Acetaminophen (Tylenol Tab) 650 mg Q6H PRN PO PAIN LEVEL 1-3 OR FEVER Last administered on 05/05/16at 10:07; Admin Dose 650 MG; Start 04/10/16 at 19:00 Acetaminophen/ Hydrocodone Bitart ([place] (5/325)) 1 tab Q6H PRN PO PAIN LEVEL 4 -6 Last administered on 04/14/16at 23:25; Admin Dose 1 TAB; Start 04/10/16 at 19: 00 Acetaminophen/ Hydrocodone Bitart ([place] (5/325)) 2 tab Q6H PRN PO PAIN LEVEL 7 -10 Last administered on 05/04/16at 20:53; Admin Dose 2 TAB; Start 04/10/16 at 19:00 Morphine Sulfate (morphine) 2 mg Q4H PRN IV PAIN LEVEL 7-10 Last administered on 04/29/16at 20:57; Admin Dose 2 MG; Start 04/10/16 at 19:00 Magnesium Hydroxide (Milk Of Mag) 30 ml DAILY PRN PO CONSTIPATION Last administered on 04/21/16at 05:00; Admin Dose 30 ML; Start 04/10/16 at 19:00 Bisacodyl (Dulcolax Supp) 10 mg DAILY PRN [place] CONSTIPATION; Start 04/10/16 at 19 :00 Pantoprazole (Protonix Tab) 40 mg DAILY@06 PO Last administered on 05/05/16at 06:50; Admin Dose 40 MG; Start 04/11/16 at 06:00 Miscellaneous Information 1 ea NOTE XX ; Start 04/10/16 at 19:00 Glucose (Glutose) 15 gm Q15M PRN PO DECREASED GLUCOSE; Start 04/10/16 at 19:00 Glucose (Glutose) 22.5 gm Q15M PRN PO DECREASED GLUCOSE; Start 04/10/16 at 19: 00 Dextrose (D50w Syringe) 25 ml Q15M PRN IV DECREASED GLUCOSE; Start 04/10/16 at 19:00 Dextrose (D50w Syringe) 50 ml Q15M PRN IV DECREASED GLUCOSE; Start 04/10/16 at 19:00 Glucagon (Glucagen) 1 mg Q15M PRN IM DECREASED GLUCOSE; Start 04/10/16 at 19:00 Glucose (Glutose) 15 gm Q15M PRN BUCCAL DECREASED GLUCOSE; Start 04/10/16 at 19 :00 Metoprolol Tartrate (Lopressor) 100 mg BID PO Last administered on 05/05/16at 09:48; Admin Dose 100 MG; Start 04/11/16 at 09:00 Docusate Sodium (Colace) 100 mg Q12H PO Last administered on 05/04/16at 05:22; Admin Dose 100 MG; Start 04/11/16 at 19:00 Polyethylene Glycol (Miralax) 17 gm DAILY PO Last administered on 05/05/16at 09 :47; Admin Dose 17 GM; Start 04/11/16 at 13:00 Levofloxacin (Levaquin) 500 mg DAILY@06 PO Last administered on 05/05/16at 06: 50; Admin Dose 500 MG; Start 04/15/16 at 14:00 Collagenase (Santyl) 1 applic DAILY TOP Last administered on 05/05/16 09:49; Admin Dose 1 APPLIC; Start 04/17/16 at 16:00 Allopurinol (Zyloprim) 300 mg DAILY PO Last administered on 05/05/16 09:48; Admin Dose 300 MG; Start 04/18/16 at 09:30 IV Flush (NS 10 ml) 10 ml PRN PRN IV IV PROTOCOL Last administered on 00:35; Admin Dose 10 ML; Start 04/18/16 at 11:30 Dexamethasone (Decadron) 10 mg Q4H PRN IV REACTION Last administered on 16:58; Admin Dose 10 MG; Start 04/18/16 at 13:00 Diphenhydramine HCl 25 mg 25 mg Q4H PRN IV ALLERGIC REACTION Last administered on 04/24/16 16:42; Admin Dose 25 MG; Start 04/18/16 at 13:00 Ondansetron HCl/ Sodium Chloride (Zofran Inj/NS) 54 ml @ 110 mls/hr Q8H PRN IV NAUSEA Last administered on 04/30/16 09:51; Admin Dose 110 MLS/HR; Start 04/18/16 at 13:00 Amlodipine Besylate (Norvasc) 5 mg BID PO Last administered on 05/05/16 09:48 ; Admin Dose 5 MG; Start 04/21/16 at 21:00 Lisinopril (Zestril) 20 mg BID PO Last administered on 05/05/16 09:48; Admin Dose 20 MG; Start 04/21/16 at 21:00 Hydralazine HCl 10 mg 10 mg Q8H PRN IV ELEVATED BLOOD PRESSURE; Start at 12:00 Vancomycin HCl 1.25 gm/Sodium Chloride 250 ml @ 83.333 mls/ hr Q12H IVPB Last administered on 05/05/16 04:43; Admin Dose 83.333 MLS/HR; Start 04/24/16 at 16:00 Filgrastim/ Dextrose (Neupogen/D5W) 51.6 ml @ 103.2 mls/ hr DAILY@17 IVPB Last administered on 05/04/16 19:21; Admin Dose 103.2 MLS/HR; Start 04/25/16 at 17:00 Fluconazole (Diflucan) 100 mg DAILY PO Last administered on 05/05/16 09:48; Admin Dose 100 MG; Start 04/27/16 at 09:00 Acyclovir (Zovirax) 400 mg BID PO Last administered on 05/05/16at 09:48; Admin Dose 400 MG; Start 04/26/16 at 11:45 Insulin Glargine (Lantus) 40 unit QHS SC Last administered on 05/04/16at 21:02 ; Admin Dose 40 UNIT; Start 05/02/16 at 21:00 Prednisolone/ Sulfacetamide (Blephamide Oph) 2 drop QID BOTH EYES Last administered on 05/05/16at 09:47; Admin Dose 2 DROP; Start 05/02/16 at 17:00 Miscellaneous Information (*Rx Drug Level Order Reminder*) 1 ONCE ONCE XX ; Start 05/05/16 at 15:00; Stop 05/05/16 at 15:01 JC ERNST MD May 05, 2016 12:16
--- NOTE | 2016-05-05 16:21 | CONS ---
Date/Time of Note Date/Time of Note DATE: 05/05/16 TIME: 16:20 Consult Date/Type/Reason Admit Date/Time Apr 10, 2016 at 16:55 Initial Consult Date 04/11/16 Type of Consultation: ID Ordering Provider: LAUREL ANDERSON Subjective alert, feels good, no fevers, nad Objective Vital Signs Date Time Temp Pulse Resp B/P Pulse Ox O2 Delivery O2 Flow Rate FiO2 05/05/16 08:00 98.4 81 17 133/77 95 Room Air Intake and Output 05/04/16 05/04/16 05/05/16 15:00 23:00 07:00 Intake Total 1200 ml 450 ml Output Total 1800 ml 1850 ml Balance -600 ml -1400 ml Results/Medications Result Diagram: 05/05/16 0745 05/05/16 0455 Results 24 hrs Laboratory Tests Test 05/04/16 16:30 05/04/16 20:57 05/05/16 04:55 05/05/16 07:45 Bedside Glucose 215 395 H 209 Alanine Aminotransferase (ALT/SGPT) 47 Albumin 3.0 L Albumin/Globulin Ratio 0.81 Alkaline Phosphatase 116 Anion Gap 15 Aspartate Amino Transf (AST/SGOT) 19 Basophils # Basophils % Blood Morphology Comment Blood Urea Nitrogen 15 Calcium Level 8.0 L Carbon Dioxide Level 28 Chloride Level 103 Creatinine 1.00 Direct Bilirubin 0.00 Eosinophils # 0.0 Eosinophils % 3.0 Globulin 3.70 H Glucose Level 221 H Hematocrit 25.5 L Hemoglobin 8.5 L Indirect Bilirubin 0.5 Lymphocytes # 0.5 L Lymphocytes % 91.0 H Mean Corpuscular Hemoglobin 30.2 Mean Corpuscular Hemoglobin Concent 33.3 Mean Corpuscular Volume 90.8 Mean Platelet Volume 9.1 Monocytes # Monocytes % Neutrophils # 0.0 L Neutrophils % 6.0 L Platelet Count 30 L 33 L Platelet Estimate PLT APPEAR DECREASED Potassium Level 3.2 L Red Blood Count 2.81 L Red Cell Distribution Width 21.5 H Sodium Level 143 Total Bilirubin 0.5 Total Protein 6.7 White Blood Count 0.5 L Activated Partial Thromboplast Time 29.6 D-Dimer 1733.44 #H D-Dimer Comment Fibrinogen 506.0 #H INR International Normalized Ratio 1.11 Plasma Fibrin Degradation Products <10 Prothrombin Time 14.3 H Prothrombin Time Ratio 1.1 Thrombin Time 16.5 Test 05/05/16 11:16 Bedside Glucose 241 H Medications Current Medications Ondansetron HCl (Zofran Inj) 4 mg Q6H PRN IV NAUSEA AND/OR VOMITING Last administered on 04/30/16 05:51; Admin Dose 4 MG; Start 04/10/16 at 19:00 Nitroglycerin (Nitroglycerin (Sl Tab) 0.4 Mg) 1 tab Q5M PRN SL CHEST PAIN; Start 04/10/16 at 19:00 Acetaminophen (Tylenol Tab) 650 mg Q6H PRN PO PAIN LEVEL 1-3 OR FEVER Last administered on 05/05/16 10:07; Admin Dose 650 MG; Start 04/10/16 at 19:00 Acetaminophen/ Hydrocodone Bitart ([place] (5/325)) 1 tab Q6H PRN PO PAIN LEVEL 4 -6 Last administered on 04/14/16at 23:25; Admin Dose 1 TAB; Start 04/10/16 at 19: 00 Acetaminophen/ Hydrocodone Bitart ([place] (5/325)) 2 tab Q6H PRN PO PAIN LEVEL 7 -10 Last administered on 05/04/16at 20:53; Admin Dose 2 TAB; Start 04/10/16 at 19:00 Morphine Sulfate (morphine) 2 mg Q4H PRN IV PAIN LEVEL 7-10 Last administered on 04/29/16at 20:57; Admin Dose 2 MG; Start 04/10/16 at 19:00 Magnesium Hydroxide (Milk Of Mag) 30 ml DAILY PRN PO CONSTIPATION Last administered on 04/21/16at 05:00; Admin Dose 30 ML; Start 04/10/16 at 19:00 Bisacodyl (Dulcolax Supp) 10 mg DAILY PRN [place] CONSTIPATION; Start 04/10/16 at 19 :00 Pantoprazole (Protonix Tab) 40 mg DAILY@06 PO Last administered on 05/05/16at 06:50; Admin Dose 40 MG; Start 04/11/16 at 06:00 Miscellaneous Information 1 ea NOTE XX ; Start 04/10/16 at 19:00 Glucose (Glutose) 15 gm Q15M PRN PO DECREASED GLUCOSE; Start 04/10/16 at 19:00 Glucose (Glutose) 22.5 gm Q15M PRN PO DECREASED GLUCOSE; Start 04/10/16 at 19: 00 Dextrose (D50w Syringe) 25 ml Q15M PRN IV DECREASED GLUCOSE; Start 04/10/16 at 19:00 Dextrose (D50w Syringe) 50 ml Q15M PRN IV DECREASED GLUCOSE; Start 04/10/16 at 19:00 Glucagon (Glucagen) 1 mg Q15M PRN IM DECREASED GLUCOSE; Start 04/10/16 at 19:00 Glucose (Glutose) 15 gm Q15M PRN BUCCAL DECREASED GLUCOSE; Start 04/10/16 at 19 :00 Metoprolol Tartrate (Lopressor) 100 mg BID PO Last administered on 05/05/16 09:48; Admin Dose 100 MG; Start 04/11/16 at 09:00 Docusate Sodium (Colace) 100 mg Q12H PO Last administered on 05/04/16 05:22; Admin Dose 100 MG; Start 04/11/16 at 19:00 Polyethylene Glycol (Miralax) 17 gm DAILY PO Last administered on 05/05/16at 09 :47; Admin Dose 17 GM; Start 04/11/16 at 13:00 Levofloxacin (Levaquin) 500 mg DAILY@06 PO Last administered on 05/05/16 06: 50; Admin Dose 500 MG; Start 04/15/16 at 14:00 Collagenase (Santyl) 1 applic DAILY TOP Last administered on 05/05/16 09:49; Admin Dose 1 APPLIC; Start 04/17/16 at 16:00 Allopurinol (Zyloprim) 300 mg DAILY PO Last administered on 05/05/16 09:48; Admin Dose 300 MG; Start 04/18/16 at 09:30 IV Flush (NS 10 ml) 10 ml PRN PRN IV IV PROTOCOL Last administered on at 00:35; Admin Dose 10 ML; Start 04/18/16 at 11:30 Dexamethasone (Decadron) 10 mg Q4H PRN IV REACTION Last administered on at 16:58; Admin Dose 10 MG; Start 04/18/16 at 13:00 Diphenhydramine HCl 25 mg 25 mg Q4H PRN IV ALLERGIC REACTION Last administered on 04/24/16at 16:42; Admin Dose 25 MG; Start 04/18/16 at 13:00 Ondansetron HCl/ Sodium Chloride (Zofran Inj/NS) 54 ml @ 110 mls/hr Q8H PRN IV NAUSEA Last administered on 04/30/16 09:51; Admin Dose 110 MLS/HR; Start 04/18/16 at 13:00 Amlodipine Besylate (Norvasc) 5 mg BID PO Last administered on 05/05/16 09:48 ; Admin Dose 5 MG; Start 04/21/16 at 21:00 Lisinopril (Zestril) 20 mg BID PO Last administered on 05/05/16 09:48; Admin Dose 20 MG; Start 04/21/16 at 21:00 Hydralazine HCl 10 mg 10 mg Q8H PRN IV ELEVATED BLOOD PRESSURE; Start at 12:00 Vancomycin HCl 1.25 gm/Sodium Chloride 250 ml @ 83.333 mls/ hr Q12H IVPB Last administered on 05/05/16 04:43; Admin Dose 83.333 MLS/HR; Start 04/24/16 at 16:00 Filgrastim/ Dextrose (Neupogen/D5W) 51.6 ml @ 103.2 mls/ hr DAILY@17 IVPB Last administered on 05/04/16 19:21; Admin Dose 103.2 MLS/HR; Start 04/25/16 at 17:00 Fluconazole (Diflucan) 100 mg DAILY PO Last administered on 05/05/16 09:48; Admin Dose 100 MG; Start 04/27/16 at 09:00 Acyclovir (Zovirax) 400 mg BID PO Last administered on 05/05/16 09:48; Admin Dose 400 MG; Start 04/26/16 at 11:45 Insulin Glargine (Lantus) 40 unit QHS SC Last administered on 05/04/16 21:02 ; Admin Dose 40 UNIT; Start 05/02/16 at 21:00 Prednisolone/ Sulfacetamide (Blephamide Oph) 2 drop QID BOTH EYES Last administered on 05/05/16 13:00; Admin Dose 2 DROP; Start 05/02/16 at 17:00 Assessment/Plan Chief Complaint/Hosp Course ANTIMICROBIALS: 1. Vancomycin 2. Levaquin. 3. Diflucan 4. Acyclovir Indwellings: LUE PICC 04/18/16 PHYSICAL EXAMINATION: GENERAL: Obese, well-developed, middle-aged man who is awake, in no distress. HEENT: Head atraumatic, normocephalic. Sclerae anicteric. Buccal mucosa pink. NECK: Supple. Trachea midline. LUNGS: Chest rise symmetrical. Breath sounds clear. HEART: S1, S2. ABDOMEN: Soft. Bowel tones present. EXTREMITIES: No cyanosis ASSESSMENT: 1. Neutropenia, s/p neutropenic fevers 2. 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 4. Diabetes. 5. Hypertension. 6. Legally blind. PLAN: Remains unchanged, continue abx, chemotherapy/Neupogen per oncology. [place] cx prn [facility] staff Problems: JUVENAL SANCHEZ NP May 05, 2016 16:21
[2016-05-05] MEDS: FILGRASTIM IVPB SCH (17:23)
[2016-05-05] MEDS: DEXTROSE 5% IVPB SCH (17:23)
--- NOTE | 2016-05-05 18:08 | PN ---
Date/Time of Note Date/Time of Note DATE: 05/05/16 TIME: 18:08 Assessment/Plan VTE Prophylaxis VTE Prophylaxis Intervention: SCD's Lines/Catheters IV [facility]ter Type (from [facility]): PICC Line Central line still needed: Yes (Continued chemotherapy) Urinary Cath still in place: No Assessment/Plan Assessment/Plan [facility] 1. 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 Admitted with acute on chronic anemia and thrombocytopenia. 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 His ANC was again undetectable today, on an unchanged WBC of 0.5 k/ul. Platelets slightly higher at 33k/ul. No bleeding. Hct slightly lower at 25.5%. * Continue Neupogen * Continue Acyclovir and Diflucan * Screening for BK/COOPER viruses NEGATIVE; critical screening for rituximab infusion 2. Right 1st and 2nd toe cellulitis/osteomyelitis on MRI, exacerbated by persistent neutropenia post-chemotherapy.JOSE J-negative for endocarditis. Blood and urine cultures from 04/26/16 both grew Coagulase-negative Staph, sensitive to Vancomycin. * Continue Vancomycin and Levaquin 3. Urine culture also positive for Radha, but with low colony count. 4. Diabetes. HbA1c 7.2%. Blood sugars were higher this morning, in the 200s, without obvious cause. He took his Lantus last night and has been very good about pre-prandial insulin. But tonight he refused the Lantus, and Sunday's sugars are likely to be higher. * Please make sure the Novolog insulin is given before he eats. * Continue Tradjenta * Continue Lantus dose of 40 units and preprandial insulin at 6 units * Controlled carbohydrate diet 5. Cardiomegaly, EF 50%. No further episodes of NSVT * Continue Lopressor/beta-alma 6. 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 * Continue acyclovir * Ophthalmology evaluation as soon as possible. 7. Hypertension. Mildly elevated yesterday, but improved today. * Continue Carvedilol, Norvasc and Lisinopril. * Use hydralazine PRN 8. Constipation * Continue Miralax and Colace 9. Prophylaxis: Protonix for GI prophylaxis and SCDs for DVT prophylaxis. 10. DISPOSITION: Waiting for normalization of the WBC count prior to discharge home. Bárbara Perez MD PhD [phone] Subjective 24 Hr Interval Summary Free Text/Dictation Feeling quite well. No fever or loss of appetite. No nausea, and no pain complaints. Exam/Review of Systems Vital Signs Vitals Vital Signs Date Time Temp Pulse Resp B/P Pulse Ox O2 Delivery O2 Flow Rate FiO2 05/05/16 08:00 98.4 81 17 133/77 95 Room Air Intake and Output 05/04/16 05/04/16 05/05/16 15:00 23:00 07:00 Intake Total 1200 ml 450 ml Output Total 1800 ml 1850 ml Balance -600 ml -1400 ml Exam Constitutional: Smiling, comfortable, blind, breathing easily on room air. HEENT: Conjunctiva injected bilaterally. Indistinct corneal margins. Moist oral mucosa. Respiratory: Clear bilaterally, good air movement Cardiovascular: Symmetric pulses, regular rate and rhythm Gastrointestinal: non-tender, soft, no hepatosplenomegaly Musculoskeletal: Right forefoot still wrapped for ulcerations; bandage clean and dry. Extremities: normal pulses; no edema, clubbing or cyanosis 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: [employer] II-XII intact, nl mental status, nl speech, nl strength, blind. Skin: Nodular lesions down both arms suggestive of Kaposi's sarcoma; non- excoriated. Results Result Diagram: 05/05/16 0745 05/05/16 0455 Results 24 hrs Laboratory Tests Test 05/04/16 20:57 05/05/16 04:55 05/05/16 07:45 05/05/16 11:16 Bedside Glucose 395 H 209 241 H Alanine Aminotransferase (ALT/SGPT) 47 Albumin 3.0 L Albumin/Globulin Ratio 0.81 Alkaline Phosphatase 116 Anion Gap 15 Aspartate Amino Transf (AST/SGOT) 19 Basophils # Basophils % Blood Morphology Comment Blood Urea Nitrogen 15 Calcium Level 8.0 L Carbon Dioxide Level 28 Chloride Level 103 Creatinine 1.00 Direct Bilirubin 0.00 Eosinophils # 0.0 Eosinophils % 3.0 Globulin 3.70 H Glucose Level 221 H Hematocrit 25.5 L Hemoglobin 8.5 L Indirect Bilirubin 0.5 Lymphocytes # 0.5 L Lymphocytes % 91.0 H Mean Corpuscular Hemoglobin 30.2 Mean Corpuscular Hemoglobin Concent 33.3 Mean Corpuscular Volume 90.8 Mean Platelet Volume 9.1 Monocytes # Monocytes % Neutrophils # 0.0 L Neutrophils % 6.0 L Platelet Count 30 L 33 L Platelet Estimate PLT APPEAR DECREASED Potassium Level 3.2 L Red Blood Count 2.81 L Red Cell Distribution Width 21.5 H Sodium Level 143 Total Bilirubin 0.5 Total Protein 6.7 White Blood Count 0.5 L Activated Partial Thromboplast Time 29.6 D-Dimer 1733.44 #H D-Dimer Comment Fibrinogen 506.0 #H INR International Normalized Ratio 1.11 Plasma Fibrin Degradation Products <10 Prothrombin Time 14.3 H Prothrombin Time Ratio 1.1 Thrombin Time 16.5 Test 05/05/16 15:10 05/05/16 17:25 Vancomycin Level Trough 15.6 Bedside Glucose 128 Medications Medications Current Medications Ondansetron HCl (Zofran Inj) 4 mg Q6H PRN IV NAUSEA AND/OR VOMITING Last administered on 04/30/16at 05:51; Admin Dose 4 MG; Start 04/10/16 at 19:00 Nitroglycerin (Nitroglycerin (Sl Tab) 0.4 Mg) 1 tab Q5M PRN SL CHEST PAIN; Start 04/10/16 at 19:00 Acetaminophen (Tylenol Tab) 650 mg Q6H PRN PO PAIN LEVEL 1-3 OR FEVER Last administered on 05/05/16at 10:07; Admin Dose 650 MG; Start 04/10/16 at 19:00 Acetaminophen/ Hydrocodone Bitart (Geff (5/325)) 1 tab Q6H PRN PO PAIN LEVEL 4 -6 Last administered on 04/14/16at 23:25; Admin Dose 1 TAB; Start 04/10/16 at 19: 00 Acetaminophen/ Hydrocodone Bitart (Geff (5/325)) 2 tab Q6H PRN PO PAIN LEVEL 7 -10 Last administered on 05/04/16at 20:53; Admin Dose 2 TAB; Start 04/10/16 at 19:00 Morphine Sulfate (morphine) 2 mg Q4H PRN IV PAIN LEVEL 7-10 Last administered on 04/29/16at 20:57; Admin Dose 2 MG; Start 04/10/16 at 19:00 Magnesium Hydroxide (Milk Of Mag) 30 ml DAILY PRN PO CONSTIPATION Last administered on 04/21/16at 05:00; Admin Dose 30 ML; Start 04/10/16 at 19:00 Bisacodyl (Dulcolax Supp) 10 mg DAILY PRN [place] CONSTIPATION; Start 04/10/16 at 19 :00 Pantoprazole (Protonix Tab) 40 mg DAILY@06 PO Last administered on 05/05/16at 06:50; Admin Dose 40 MG; Start 04/11/16 at 06:00 Miscellaneous Information 1 ea NOTE XX ; Start 04/10/16 at 19:00 Glucose (Glutose) 15 gm Q15M PRN PO DECREASED GLUCOSE; Start 04/10/16 at 19:00 Glucose (Glutose) 22.5 gm Q15M PRN PO DECREASED GLUCOSE; Start 04/10/16 at 19: 00 Dextrose (D50w Syringe) 25 ml Q15M PRN IV DECREASED GLUCOSE; Start 04/10/16 at 19:00 Dextrose (D50w Syringe) 50 ml Q15M PRN IV DECREASED GLUCOSE; Start 04/10/16 at 19:00 Glucagon (Glucagen) 1 mg Q15M PRN IM DECREASED GLUCOSE; Start 04/10/16 at 19:00 Glucose (Glutose) 15 gm Q15M PRN BUCCAL DECREASED GLUCOSE; Start 04/10/16 at 19 :00 Metoprolol Tartrate (Lopressor) 100 mg BID PO Last administered on 05/05/16at 09:48; Admin Dose 100 MG; Start 04/11/16 at 09:00 Docusate Sodium (Colace) 100 mg Q12H PO Last administered on 05/04/16at 05:22; Admin Dose 100 MG; Start 04/11/16 at 19:00 Polyethylene Glycol (Miralax) 17 gm DAILY PO Last administered on 05/05/16at 09 :47; Admin Dose 17 GM; Start 04/11/16 at 13:00 Levofloxacin (Levaquin) 500 mg DAILY@06 PO Last administered on 05/05/16at 06: 50; Admin Dose 500 MG; Start 04/15/16 at 14:00 Collagenase (Santyl) 1 applic DAILY TOP Last administered on 05/05/16at 09:49; Admin Dose 1 APPLIC; Start 04/17/16 at 16:00 Allopurinol (Zyloprim) 300 mg DAILY PO Last administered on 05/05/16 09:48; Admin Dose 300 MG; Start 04/18/16 at 09:30 IV Flush (NS 10 ml) 10 ml PRN PRN IV IV PROTOCOL Last administered on 00:35; Admin Dose 10 ML; Start 04/18/16 at 11:30 Dexamethasone (Decadron) 10 mg Q4H PRN IV REACTION Last administered on 16:58; Admin Dose 10 MG; Start 04/18/16 at 13:00 Diphenhydramine HCl 25 mg 25 mg Q4H PRN IV ALLERGIC REACTION Last administered on 04/24/16 16:42; Admin Dose 25 MG; Start 04/18/16 at 13:00 Ondansetron HCl/ Sodium Chloride (Zofran Inj/NS) 54 ml @ 110 mls/hr Q8H PRN IV NAUSEA Last administered on 04/30/16 09:51; Admin Dose 110 MLS/HR; Start 04/18/16 at 13:00 Amlodipine Besylate (Norvasc) 5 mg BID PO Last administered on 05/05/16 09:48 ; Admin Dose 5 MG; Start 04/21/16 at 21:00 Lisinopril (Zestril) 20 mg BID PO Last administered on 05/05/16 09:48; Admin Dose 20 MG; Start 04/21/16 at 21:00 Hydralazine HCl 10 mg 10 mg Q8H PRN IV ELEVATED BLOOD PRESSURE; Start at 12:00 Vancomycin HCl 1.25 gm/Sodium Chloride 250 ml @ 83.333 mls/ hr Q12H IVPB Last administered on 05/05/16 04:43; Admin Dose 83.333 MLS/HR; Start 04/24/16 at 16:00; Stop 05/05/16 at 19:00 Filgrastim/ Dextrose (Neupogen/D5W) 51.6 ml @ 103.2 mls/ hr DAILY@17 IVPB Last administered on 05/05/16 17:23; Admin Dose 103.2 MLS/HR; Start 04/25/16 at 17:00 Fluconazole (Diflucan) 100 mg DAILY PO Last administered on 05/05/16 09:48; Admin Dose 100 MG; Start 04/27/16 at 09:00 Acyclovir (Zovirax) 400 mg BID PO Last administered on 05/05/16at 09:48; Admin Dose 400 MG; Start 04/26/16 at 11:45 Insulin Glargine (Lantus) 40 unit QHS SC Last administered on 05/04/16at 21:02 ; Admin Dose 40 UNIT; Start 05/02/16 at 21:00 Prednisolone/ Sulfacetamide 2 drop 2 drop QID BOTH EYES Last administered on at 17:23; Admin Dose 2 DROP; Start 05/02/16 at 17:00 Vancomycin HCl/ Sodium Chloride (Vancocin/NS) 250 ml @ 83.333 mls/ hr Q12H IVPB ; Start 05/06/16 at 06:00 MALLIKA PEREZ M.D. May 05, 2016 18:08
[2016-05-05 20:20] VITALS: BP 104/75; PULSE 81; RESP 17
[2016-05-05] MEDS: INSULIN GLARGINE [LANtus] 3 ML PEN SC SCH (21:00)
[2016-05-05] MEDS: HYDROCODONE/APAP (5/325) TAB PO PRN (21:07)
[2016-05-06 05:25] LABS: HEMATOCRIT 25.8 % (42.0-52.0); HEMOGLOBIN 8.6 g/dl (14.0-18.0); MEAN CORPUSCULAR HEMOGLOBIN 30.1 pg (29.0-33.0); MEAN CORPUSCULAR HGB CONC 33.3 g/dl (32.0-37.0); MEAN CORPUSCULAR VOLUME 90.3 fl (82.0-101.0); MEAN PLATELET VOLUME 9.1 fl (7.4-10.4); PLATELET COUNT 35 10^3/UL (140-440); RED BLOOD COUNT 2.85 10^6/ul (4.70-6.10); RED CELL DISTRIBUTION WIDTH 21.8 % (11.5-14.5); UNCORRECTED WBC 0.6 10^3/ul (4.8-10.8); WHITE BLOOD COUNT 0.6 10^3/ul (4.8-10.8)
[2016-05-06 05:35] LABS: CONDITION 1; LH ANALYZER COMMENTS 1; SUSPECT 1
[2016-05-06 05:57] LABS: ALBUMIN/GLOBULIN RATIO 0.78
[2016-05-06 06:31] LABS: CREATININE 1.03 mg/dl (0.61-1.24)
[2016-05-06 06:32] LABS: BILIRUBIN,INDIRECT 0.5 mg/dl (0-1.1); BILIRUBIN,TOTAL 0.5 mg/dl (0.2-1.3); CALCIUM 7.8 mg/dl (8.4-10.2); TOTAL PROTEIN 6.8 g/dl (6.1-8.1)
[2016-05-06] MEDS: PANTOPRAZOLE (EC) 40 MG TAB PO SCH (06:40)
[2016-05-06] MEDS: LEVOFLOXACIN 500 MG TAB PO SCH (06:40)
[2016-05-06] MEDS: VANCOMYCIN 1.25 GM in SOD CHLORIDE 0.9% 250 ML IVPB SCH ×2 (06:41→17:26)
[2016-05-06] MEDS: DOCUSATE SODIUM 100 MG CAP PO SCH ×2 (06:48→17:38)
[2016-05-06 07:51] LABS: LYMPHOCYTES # 0.4 10^3/ul (0.8-2.9); NEUTROPHIL # 0.1 10^3/ul (1.6-7.5)
[2016-05-06 07:52] LABS: ANISOCYTOSIS 2+; PLATELET ESTIMATE PLT APPEAR DECREASED
[2016-05-06 07:53] LABS: TARGET CELLS RARE
[2016-05-06] MEDS: PREDNISOLONE/SULFACETAMIDE 5 ML OPH BOTH EYES SCH ×4 (09:00→21:44)
[2016-05-06] MEDS: ALLOPURINOL 300 MG TAB PO SCH (09:10)
[2016-05-06] MEDS: LISINOPRIL 20 MG TAB PO SCH ×2 (09:11→21:43)
[2016-05-06] MEDS: ACYCLOVIR 400 MG TAB PO SCH ×2 (09:11→21:42)
[2016-05-06] MEDS: FLUCONAZOLE 100 MG TAB PO SCH (09:11)
[2016-05-06] MEDS: AMLODIPINE 5 MG TAB PO SCH ×2 (09:12→21:44)
[2016-05-06] MEDS: METOPROLOL 100 MG TAB PO SCH ×2 (09:12→21:43)
[2016-05-06] MEDS: POLYETHYLENE GLYCOL 17 GM PACKET PO SCH (09:12)
[2016-05-06] MEDS: INSULIN ASPART [NOVOLOG] 3 ML PEN SC SCH ×6 (09:16→17:27)
[2016-05-06] MEDS: COLLAGENASE 30 GM TUBE TOP SCH (13:02)
--- NOTE | 2016-05-06 14:32 | PN ---
Date/Time of Note Date/Time of Note DATE: 05/06/16 TIME: 14:29 Assessment/Plan VTE Prophylaxis VTE Prophylaxis Intervention: ambulation Lines/Catheters IV Catheter Type (from [facility]): PICC Line Central line still needed: Yes Urinary Cath still in place: No Assessment/Plan Assessment/Plan 1. 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 Admitted with acute on chronic anemia and thrombocytopenia. 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 His ANC low again today to about 120. Platelets slightly higher at 35k/ul. No bleeding. Hgb slightly about the same at 8.6. * Continue Neupogen * Continue Acyclovir and Diflucan * Screening for BK/COOPER viruses NEGATIVE; critical screening for rituximab infusion 2. Right 1st and 2nd toe cellulitis/osteomyelitis on MRI, exacerbated by persistent neutropenia post-chemotherapy.JOSE J-negative for endocarditis. Blood and urine cultures from 04/26/16 both grew Coagulase-negative Staph, sensitive to Vancomycin. * Continue Vancomycin and Levaquin per ID recommendations 3. Urine culture also positive for Radha, but with low colony count. 4. Diabetes. HbA1c 7.2%. Blood sugars were higher this morning, in the 200s, without obvious cause. He took his Lantus last night and has been very good about pre-prandial insulin. But tonight he refused the Lantus, and Sunday's sugars are likely to be higher. * Please make sure the Novolog insulin is given before he eats. * Continue Tradjenta * Continue Lantus dose of 40 units and preprandial insulin at 6 units * Controlled carbohydrate diet 5. Cardiomegaly, EF 50%. No further episodes of NSVT * Continue Lopressor/beta-alma 6. 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 * Continue acyclovir * Ophthalmology evaluation as soon as possible. 7. Hypertension. Mildly elevated yesterday, but improved today. * Continue Carvedilol, Norvasc and Lisinopril. * Use hydralazine PRN 8. Constipation * Continue Miralax and Colace 9. Prophylaxis: Protonix for GI prophylaxis and SCDs for DVT prophylaxis. 10. DISPOSITION: Waiting for normalization of the WBC count prior to discharge home. Subjective 24 Hr Interval Summary Free Text/Dictation Resting comfortably. No new complaints. Exam/Review of Systems Vital Signs Vitals Vital Signs Date Time Temp Pulse Resp B/P Pulse Ox O2 Delivery O2 Flow Rate FiO2 05/05/16 20:20 98.5 81 17 104/75 94 05/05/16 08:00 Room Air Intake and Output 05/05/16 05/05/16 05/06/16 15:00 23:00 07:00 Intake Total 1540 ml 400 ml Output Total 1000 ml 1250 ml Balance 540 ml -850 ml Exam Constitutional: alert, oriented Psych: no complaints Head: normocephalic ENMT: nl external ears & nose Neck: supple Respiratory: clear to auscultation Cardiovascular: regular rate and rhythm Gastrointestinal: soft Musculoskeletal: nl extremities to inspection Extremities: normal pulses Results Result Diagram: 05/06/16 0451 05/06/16 0451 Results 24 hrs Laboratory Tests Test 05/05/16 15:10 05/05/16 17:25 05/05/16 21:10 05/06/16 04:51 Vancomycin Level Trough 15.6 Bedside Glucose 128 91 Alanine Aminotransferase (ALT/SGPT) 49 Albumin 3.0 L Albumin/Globulin Ratio 0.78 Alkaline Phosphatase 111 Anion Gap 13 Anisocytosis 2+ Aspartate Amino Transf (AST/SGOT) 19 Band Neutrophils % 13.0 H Basophils # Basophils % Blood Morphology Comment Blood Urea Nitrogen 12 Calcium Level 7.8 L Carbon Dioxide Level 29 Chloride Level 103 Creatinine 1.03 Direct Bilirubin 0.00 Eosinophils # 0.0 Eosinophils % 4.0 Globulin 3.80 H Glucose Level 191 Hematocrit 25.8 L Hemoglobin 8.6 L Indirect Bilirubin 0.5 Lymphocytes # 0.4 L Lymphocytes % 62.0 H Mean Corpuscular Hemoglobin 30.1 Mean Corpuscular Hemoglobin Concent 33.3 Mean Corpuscular Volume 90.3 Mean Platelet Volume 9.1 Monocytes # 0.0 L Monocytes % 1.0 Neutrophils # 0.1 L Neutrophils % 20.0 L Platelet Count 35 L Platelet Estimate PLT APPEAR DECREASED Potassium Level 3.0 L Red Blood Count 2.85 L Red Cell Distribution Width 21.8 H Sodium Level 142 Target Cells RARE Total Bilirubin 0.5 Total Protein 6.8 White Blood Count 0.6 L Test 05/06/16 08:04 05/06/16 11:58 Bedside Glucose 224 H 333 H Medications Medications Current Medications Ondansetron HCl (Zofran Inj) 4 mg Q6H PRN IV NAUSEA AND/OR VOMITING Last administered on 04/30/16 05:51; Admin Dose 4 MG; Start 04/10/16 at 19:00 Nitroglycerin (Nitroglycerin (Sl Tab) 0.4 Mg) 1 tab Q5M PRN SL CHEST PAIN; Start 04/10/16 at 19:00 Acetaminophen (Tylenol Tab) 650 mg Q6H PRN PO PAIN LEVEL 1-3 OR FEVER Last administered on 05/05/16at 10:07; Admin Dose 650 MG; Start 04/10/16 at 19:00 Acetaminophen/ Hydrocodone Bitart ([place] (5/325)) 1 tab Q6H PRN PO PAIN LEVEL 4 -6 Last administered on 04/14/16at 23:25; Admin Dose 1 TAB; Start 04/10/16 at 19: 00 Acetaminophen/ Hydrocodone Bitart ([place] (5/325)) 2 tab Q6H PRN PO PAIN LEVEL 7 -10 Last administered on 05/05/16at 21:07; Admin Dose 2 TAB; Start 04/10/16 at 19:00 Morphine Sulfate (morphine) 2 mg Q4H PRN IV PAIN LEVEL 7-10 Last administered on 04/29/16at 20:57; Admin Dose 2 MG; Start 04/10/16 at 19:00 Magnesium Hydroxide (Milk Of Mag) 30 ml DAILY PRN PO CONSTIPATION Last administered on 04/21/16at 05:00; Admin Dose 30 ML; Start 04/10/16 at 19:00 Bisacodyl (Dulcolax Supp) 10 mg DAILY PRN [place] CONSTIPATION; Start 04/10/16 at 19 :00 Pantoprazole (Protonix Tab) 40 mg DAILY@06 PO Last administered on 05/06/16at 06:40; Admin Dose 40 MG; Start 04/11/16 at 06:00 Miscellaneous Information 1 ea NOTE XX ; Start 04/10/16 at 19:00 Glucose (Glutose) 15 gm Q15M PRN PO DECREASED GLUCOSE; Start 04/10/16 at 19:00 Glucose (Glutose) 22.5 gm Q15M PRN PO DECREASED GLUCOSE; Start 04/10/16 at 19: 00 Dextrose (D50w Syringe) 25 ml Q15M PRN IV DECREASED GLUCOSE; Start 04/10/16 at 19:00 Dextrose (D50w Syringe) 50 ml Q15M PRN IV DECREASED GLUCOSE; Start 04/10/16 at 19:00 Glucagon (Glucagen) 1 mg Q15M PRN IM DECREASED GLUCOSE; Start 04/10/16 at 19:00 Glucose (Glutose) 15 gm Q15M PRN BUCCAL DECREASED GLUCOSE; Start 04/10/16 at 19 :00 Metoprolol Tartrate (Lopressor) 100 mg BID PO Last administered on 05/06/16 09:12; Admin Dose 100 MG; Start 04/11/16 at 09:00 Docusate Sodium (Colace) 100 mg Q12H PO Last administered on 05/04/16at 05:22; Admin Dose 100 MG; Start 04/11/16 at 19:00 Polyethylene Glycol (Miralax) 17 gm DAILY PO Last administered on 05/06/16at 09 :12; Admin Dose 17 GM; Start 04/11/16 at 13:00 Levofloxacin (Levaquin) 500 mg DAILY@06 PO Last administered on 05/06/16 06: 40; Admin Dose 500 MG; Start 04/15/16 at 14:00 Collagenase (Santyl) 1 applic DAILY TOP Last administered on 05/06/16 13:02; Admin Dose 1 APPLIC; Start 04/17/16 at 16:00 Allopurinol (Zyloprim) 300 mg DAILY PO Last administered on 05/06/16at 09:10; Admin Dose 300 MG; Start 04/18/16 at 09:30 IV Flush (NS 10 ml) 10 ml PRN PRN IV IV PROTOCOL Last administered on at 00:35; Admin Dose 10 ML; Start 04/18/16 at 11:30 Dexamethasone (Decadron) 10 mg Q4H PRN IV REACTION Last administered on at 16:58; Admin Dose 10 MG; Start 04/18/16 at 13:00 Diphenhydramine HCl 25 mg 25 mg Q4H PRN IV ALLERGIC REACTION Last administered on 04/24/16at 16:42; Admin Dose 25 MG; Start 04/18/16 at 13:00 Ondansetron HCl/ Sodium Chloride (Zofran Inj/NS) 54 ml @ 110 mls/hr Q8H PRN IV NAUSEA Last administered on 04/30/16 09:51; Admin Dose 110 MLS/HR; Start 04/18/16 at 13:00 Amlodipine Besylate (Norvasc) 5 mg BID PO Last administered on 05/06/16 09:12 ; Admin Dose 5 MG; Start 04/21/16 at 21:00 Lisinopril (Zestril) 20 mg BID PO Last administered on 05/06/16 09:11; Admin Dose 20 MG; Start 04/21/16 at 21:00 Hydralazine HCl 10 mg 10 mg Q8H PRN IV ELEVATED BLOOD PRESSURE; Start at 12:00 Filgrastim/ Dextrose (Neupogen/D5W) 51.6 ml @ 103.2 mls/ hr DAILY@17 IVPB Last administered on 05/05/16 17:23; Admin Dose 103.2 MLS/HR; Start 04/25/16 at 17:00 Fluconazole (Diflucan) 100 mg DAILY PO Last administered on 05/06/16 09:11; Admin Dose 100 MG; Start 04/27/16 at 09:00 Acyclovir (Zovirax) 400 mg BID PO Last administered on 05/06/16 09:11; Admin Dose 400 MG; Start 04/26/16 at 11:45 Insulin Glargine (Lantus) 40 unit QHS SC Last administered on 05/04/16 21:02 ; Admin Dose 40 UNIT; Start 05/02/16 at 21:00 Prednisolone/ Sulfacetamide 2 drop 2 drop QID BOTH EYES Last administered on 21:44; Admin Dose 2 DROP; Start 05/02/16 at 17:00 Vancomycin HCl/ Sodium Chloride (Vancocin/NS) 250 ml @ 83.333 mls/ hr Q12H IVPB Last administered on 05/06/16 06:41; Admin Dose 83.333 MLS/HR; Start at 06:00 EDNA STERN MD May 06, 2016 14:32
--- NOTE | 2016-05-06 15:27 | CONS ---
Date/Time of Note Date/Time of Note DATE: 05/06/16 TIME: 15:23 Assessment/Plan Assessment/Plan Chief Complaint/Hosp Course ID PROGRESS NOTE 24H INTERVAL SUMMARY * A/A/O -> no fevers, WBC 0.6, doing OK * ANTIMICROBIALS: 1. Vancomycin. 2. Levaquin PHYSICAL EXAMINATION: GENERAL: Obese M, resting, awake, alert, VSS, NAD HEENT: Unremarkable except low vision NECK: Supple. Trachea midline. LUNGS: Chest rise symmetrical, without dyspnea on observation ABDOMEN: Soft EXTREMITIES: With right foot edema ID ASSESSMENT: 1. 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 Pancytopenia due to #1 3. Right diabetic foot ulcer with toe osteomyelitis=> podiatry on case. * MRI showed evidence of osteomyelitis at the second middle and distal phalanges. 4. s/p Systemic inflammatory response syndrome with fever on admission, elevated ESR, significant thrombocytopenia and anemia. * (+)Bacteremia 04/26/16/ bottles: COAGULASE NEGATIVE STAPH * JOSE J revealed no vegetations 5. 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 Hypertension. 7. Legally blind. (-)MRSA Nares Screen CURRENT ABX: Vanco IV + Levaquin PO s/p Zosyn ID RECOMMENDATIONS/PLAN: Clinically stable = continue current ABX f/u podiatry rec-s. If he spikes temp = repeat BCx via PICC Chemo per oncology rec-s . . Problems: Consultation Date/Type/Reason Admit Date/Time Apr 10, 2016 at 16:55 Initial Consult Date 04/11/16 Type of Consultation: ID Referring Provider: LAUREL ANDERSON Exam/Review of Systems Vital Signs Vitals Vital Signs Date Time Temp Pulse Resp B/P Pulse Ox O2 Delivery O2 Flow Rate FiO2 05/05/16 20:20 98.5 81 17 104/75 94 05/05/16 08:00 Room Air Intake and Output 05/05/16 05/05/16 05/06/16 15:00 23:00 07:00 Intake Total 1540 ml 400 ml Output Total 1000 ml 1250 ml Balance 540 ml -850 ml Results Result Diagram: 05/06/16 0451 05/06/16 0451 Results 24 hrs Laboratory Tests Test 05/05/16 17:25 05/05/16 21:10 05/06/16 04:51 05/06/16 08:04 Bedside Glucose 128 91 224 H Alanine Aminotransferase (ALT/SGPT) 49 Albumin 3.0 L Albumin/Globulin Ratio 0.78 Alkaline Phosphatase 111 Anion Gap 13 Anisocytosis 2+ Aspartate Amino Transf (AST/SGOT) 19 Band Neutrophils % 13.0 H Basophils # Basophils % Blood Morphology Comment Blood Urea Nitrogen 12 Calcium Level 7.8 L Carbon Dioxide Level 29 Chloride Level 103 Creatinine 1.03 Direct Bilirubin 0.00 Eosinophils # 0.0 Eosinophils % 4.0 Globulin 3.80 H Glucose Level 191 Hematocrit 25.8 L Hemoglobin 8.6 L Indirect Bilirubin 0.5 Lymphocytes # 0.4 L Lymphocytes % 62.0 H Mean Corpuscular Hemoglobin 30.1 Mean Corpuscular Hemoglobin Concent 33.3 Mean Corpuscular Volume 90.3 Mean Platelet Volume 9.1 Monocytes # 0.0 L Monocytes % 1.0 Neutrophils # 0.1 L Neutrophils % 20.0 L Platelet Count 35 L Platelet Estimate PLT APPEAR DECREASED Potassium Level 3.0 L Red Blood Count 2.85 L Red Cell Distribution Width 21.8 H Sodium Level 142 Target Cells RARE Total Bilirubin 0.5 Total Protein 6.8 White Blood Count 0.6 L Test 05/06/16 11:58 Bedside Glucose 333 H Medications Medications Current Medications Ondansetron HCl (Zofran Inj) 4 mg Q6H PRN IV NAUSEA AND/OR VOMITING Last administered on 04/30/16at 05:51; Admin Dose 4 MG; Start 04/10/16 at 19:00 Nitroglycerin (Nitroglycerin (Sl Tab) 0.4 Mg) 1 tab Q5M PRN SL CHEST PAIN; Start 04/10/16 at 19:00 Acetaminophen (Tylenol Tab) 650 mg Q6H PRN PO PAIN LEVEL 1-3 OR FEVER Last administered on 05/05/16at 10:07; Admin Dose 650 MG; Start 04/10/16 at 19:00 Acetaminophen/ Hydrocodone Bitart ([place] (5/325)) 1 tab Q6H PRN PO PAIN LEVEL 4 -6 Last administered on 04/14/16at 23:25; Admin Dose 1 TAB; Start 04/10/16 at 19: 00 Acetaminophen/ Hydrocodone Bitart ([place] (5/325)) 2 tab Q6H PRN PO PAIN LEVEL 7 -10 Last administered on 05/05/16at 21:07; Admin Dose 2 TAB; Start 04/10/16 at 19:00 Morphine Sulfate (morphine) 2 mg Q4H PRN IV PAIN LEVEL 7-10 Last administered on 04/29/16at 20:57; Admin Dose 2 MG; Start 04/10/16 at 19:00 Magnesium Hydroxide (Milk Of Mag) 30 ml DAILY PRN PO CONSTIPATION Last administered on 04/21/16at 05:00; Admin Dose 30 ML; Start 04/10/16 at 19:00 Bisacodyl (Dulcolax Supp) 10 mg DAILY PRN [place] CONSTIPATION; Start 04/10/16 at 19 :00 Pantoprazole (Protonix Tab) 40 mg DAILY@06 PO Last administered on 05/06/16at 06:40; Admin Dose 40 MG; Start 04/11/16 at 06:00 Miscellaneous Information 1 ea NOTE XX ; Start 04/10/16 at 19:00 Glucose (Glutose) 15 gm Q15M PRN PO DECREASED GLUCOSE; Start 04/10/16 at 19:00 Glucose (Glutose) 22.5 gm Q15M PRN PO DECREASED GLUCOSE; Start 04/10/16 at 19: 00 Dextrose (D50w Syringe) 25 ml Q15M PRN IV DECREASED GLUCOSE; Start 04/10/16 at 19:00 Dextrose (D50w Syringe) 50 ml Q15M PRN IV DECREASED GLUCOSE; Start 04/10/16 at 19:00 Glucagon (Glucagen) 1 mg Q15M PRN IM DECREASED GLUCOSE; Start 04/10/16 at 19:00 Glucose (Glutose) 15 gm Q15M PRN BUCCAL DECREASED GLUCOSE; Start 04/10/16 at 19 :00 Metoprolol Tartrate (Lopressor) 100 mg BID PO Last administered on 05/06/16at 09:12; Admin Dose 100 MG; Start 04/11/16 at 09:00 Docusate Sodium (Colace) 100 mg Q12H PO Last administered on 05/04/16at 05:22; Admin Dose 100 MG; Start 04/11/16 at 19:00 Polyethylene Glycol (Miralax) 17 gm DAILY PO Last administered on 05/06/16at 09 :12; Admin Dose 17 GM; Start 04/11/16 at 13:00 Levofloxacin (Levaquin) 500 mg DAILY@06 PO Last administered on 05/06/16 06: 40; Admin Dose 500 MG; Start 04/15/16 at 14:00 Collagenase (Santyl) 1 applic DAILY TOP Last administered on 05/06/16 13:02; Admin Dose 1 APPLIC; Start 04/17/16 at 16:00 Allopurinol (Zyloprim) 300 mg DAILY PO Last administered on 05/06/16 09:10; Admin Dose 300 MG; Start 04/18/16 at 09:30 IV Flush (NS 10 ml) 10 ml PRN PRN IV IV PROTOCOL Last administered on 00:35; Admin Dose 10 ML; Start 04/18/16 at 11:30 Dexamethasone (Decadron) 10 mg Q4H PRN IV REACTION Last administered on 16:58; Admin Dose 10 MG; Start 04/18/16 at 13:00 Diphenhydramine HCl 25 mg 25 mg Q4H PRN IV ALLERGIC REACTION Last administered on 04/24/16 16:42; Admin Dose 25 MG; Start 04/18/16 at 13:00 Ondansetron HCl/ Sodium Chloride (Zofran Inj/NS) 54 ml @ 110 mls/hr Q8H PRN IV NAUSEA Last administered on 04/30/16 09:51; Admin Dose 110 MLS/HR; Start 04/18/16 at 13:00 Amlodipine Besylate (Norvasc) 5 mg BID PO Last administered on 05/06/16at 09:12 ; Admin Dose 5 MG; Start 04/21/16 at 21:00 Lisinopril (Zestril) 20 mg BID PO Last administered on 05/06/16 09:11; Admin Dose 20 MG; Start 04/21/16 at 21:00 Hydralazine HCl 10 mg 10 mg Q8H PRN IV ELEVATED BLOOD PRESSURE; Start at 12:00 Filgrastim/ Dextrose (Neupogen/D5W) 51.6 ml @ 103.2 mls/ hr DAILY@17 IVPB Last administered on 05/05/16 17:23; Admin Dose 103.2 MLS/HR; Start 04/25/16 at 17:00 Fluconazole (Diflucan) 100 mg DAILY PO Last administered on 05/06/16 09:11; Admin Dose 100 MG; Start 04/27/16 at 09:00 Acyclovir (Zovirax) 400 mg BID PO Last administered on 05/06/16 09:11; Admin Dose 400 MG; Start 04/26/16 at 11:45 Insulin Glargine (Lantus) 40 unit QHS SC Last administered on 05/04/16 21:02 ; Admin Dose 40 UNIT; Start 05/02/16 at 21:00 Prednisolone/ Sulfacetamide 2 drop 2 drop QID BOTH EYES Last administered on 21:44; Admin Dose 2 DROP; Start 05/02/16 at 17:00 Vancomycin HCl/ Sodium Chloride (Vancocin/NS) 250 ml @ 83.333 mls/ hr Q12H IVPB Last administered on 05/06/16 06:41; Admin Dose 83.333 MLS/HR; Start at 06:00 LENCHO ESQUIVEL NP May 06, 2016 15:27
[2016-05-06] MEDS: DEXTROSE 5% IVPB SCH (17:27)
[2016-05-06] MEDS: FILGRASTIM IVPB SCH (17:27)
[2016-05-06] MEDS: HYDROCODONE/APAP (5/325) TAB PO PRN (19:58)
[2016-05-06 20:26] VITALS: BP 114/62; PULSE 84; RESP 20
[2016-05-06] MEDS: INSULIN GLARGINE [LANtus] 3 ML PEN SC SCH (22:19)
[2016-05-07 05:41] LABS: HEMATOCRIT 25.8 % (42.0-52.0); HEMOGLOBIN 8.6 g/dl (14.0-18.0); MEAN CORPUSCULAR HGB CONC 33.3 g/dl (32.0-37.0); MEAN CORPUSCULAR VOLUME 90.2 fl (82.0-101.0); MEAN PLATELET VOLUME 9.1 fl (7.4-10.4); PLATELET COUNT 35 10^3/UL (140-440); RED BLOOD COUNT 2.86 10^6/ul (4.70-6.10); UNCORRECTED WBC 0.6 10^3/ul (4.8-10.8); WHITE BLOOD COUNT 0.6 10^3/ul (4.8-10.8)
[2016-05-07 05:42] LABS: ALBUMIN 3.1 g/dl (3.3-4.9)
[2016-05-07 05:44] LABS: ALBUMIN/GLOBULIN RATIO 0.81; BILIRUBIN,INDIRECT 0.5 mg/dl (0-1.1); BILIRUBIN,TOTAL 0.5 mg/dl (0.2-1.3); CREATININE 1.07 mg/dl (0.61-1.24); TOTAL PROTEIN 6.9 g/dl (6.1-8.1)
[2016-05-07] MEDS: LEVOFLOXACIN 500 MG TAB PO SCH (06:38)
[2016-05-07] MEDS: VANCOMYCIN 1.25 GM in SOD CHLORIDE 0.9% 250 ML IVPB SCH ×2 (06:38→18:52)
[2016-05-07] MEDS: PANTOPRAZOLE (EC) 40 MG TAB PO SCH (06:40)
[2016-05-07] MEDS: DOCUSATE SODIUM 100 MG CAP PO SCH ×2 (06:40→18:52)
[2016-05-07 06:42] LABS: CONDITION 1; LH ANALYZER COMMENTS 1; SUSPECT 1
[2016-05-07] MEDS: INSULIN ASPART [NOVOLOG] 3 ML PEN SC SCH ×6 (07:50→18:08)
[2016-05-07 08:13] VITALS: BP 112/71; RESP 18
[2016-05-07] MEDS: FLUCONAZOLE 100 MG TAB PO SCH (08:40)
[2016-05-07] MEDS: PREDNISOLONE/SULFACETAMIDE 5 ML OPH BOTH EYES SCH ×4 (08:40→21:02)
[2016-05-07] MEDS: LISINOPRIL 20 MG TAB PO SCH ×2 (08:41→21:01)
[2016-05-07] MEDS: AMLODIPINE 5 MG TAB PO SCH ×2 (08:41→21:02)
[2016-05-07] MEDS: METOPROLOL 100 MG TAB PO SCH ×2 (08:41→21:01)
[2016-05-07] MEDS: ALLOPURINOL 300 MG TAB PO SCH (08:42)
[2016-05-07] MEDS: ACYCLOVIR 400 MG TAB PO SCH ×2 (08:42→21:01)
[2016-05-07] MEDS: COLLAGENASE 30 GM TUBE TOP SCH (08:42)
[2016-05-07] MEDS: POLYETHYLENE GLYCOL 17 GM PACKET PO SCH (09:00)
[2016-05-07 12:31] LABS: LYMPHOCYTES # 0.4 10^3/ul (0.8-2.9); NEUTROPHIL # 0.1 10^3/ul (1.6-7.5)
[2016-05-07 12:32] LABS: ANISOCYTOSIS 2+; PLATELET ESTIMATE PLT APPEAR DECREASED
--- NOTE | 2016-05-07 15:47 | CONS ---
Date/Time of Note Date/Time of Note DATE: 05/07/16 TIME: 15:46 Assessment/Plan Assessment/Plan Chief Complaint/Hosp Course ID PROGRESS NOTE 24H INTERVAL SUMMARY * Clincally status quo -- doing well watching TV, no complaints, no new issues * ANTIMICROBIALS: 1. Vancomycin. 2. Levaquin PHYSICAL EXAMINATION: GENERAL: Obese M, resting, awake, alert, VSS, NAD HEENT: Unremarkable except low vision NECK: Supple. Trachea midline. LUNGS: Chest rise symmetrical, without dyspnea on observation ABDOMEN: Soft EXTREMITIES: With right foot edema ID ASSESSMENT: 1. 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 Pancytopenia due to #1 3. Right diabetic foot ulcer with toe osteomyelitis=> podiatry on case. * MRI showed evidence of osteomyelitis at the second middle and distal phalanges. 4. s/p Systemic inflammatory response syndrome with fever on admission, elevated ESR, significant thrombocytopenia and anemia. * (+)Bacteremia 04/26/1605/08 bottles: COAGULASE NEGATIVE STAPH * JOSE J revealed no vegetations 5. 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 Hypertension. 7. Legally blind. (-)MRSA Nares Screen CURRENT ABX: Vanco IV + Levaquin PO s/p Zosyn ID RECOMMENDATIONS/PLAN: Clinically stable = continue current ABX f/u podiatry rec-s. If he spikes temp = repeat BCx via PICC Chemo per oncology rec-s . . Problems: Consultation Date/Type/Reason Admit Date/Time Apr 10, 2016 at 16:55 Initial Consult Date 04/11/16 Type of Consultation: ID Referring Provider: LAUREL ANDERSON Exam/Review of Systems Vital Signs Vitals Vital Signs Date Time Temp Pulse Resp B/P Pulse Ox O2 Delivery O2 Flow Rate FiO2 05/07/16 08:13 98.0 80 18 112/71 96 05/06/16 20:26 Room Air Intake and Output 05/06/16 05/06/16 05/07/16 15:00 23:00 07:00 Intake Total 1981.6 ml 1200 ml Output Total 1400 ml 1000 ml Balance 581.6 ml 200 ml Results Result Diagram: 05/07/16 0427 05/07/16426 Results 24 hrs Laboratory Tests Test 05/06/16 17:14 05/06/16 22:13 05/07/16 04:27 05/07/16 08:36 Bedside Glucose 127 185 102 Alanine Aminotransferase (ALT/SGPT) 43 Albumin 3.1 L Albumin/Globulin Ratio 0.81 Alkaline Phosphatase 108 Anion Gap 13 Anisocytosis 2+ Aspartate Amino Transf (AST/SGOT) 19 Band Neutrophils % 7.0 H Basophils # Basophils % Blood Morphology Comment Blood Urea Nitrogen 15 Calcium Level 8.0 L Carbon Dioxide Level 31 Chloride Level 103 Creatinine 1.07 Differential Comment Dimorphic Red Blood Cells OCCASIONAL Direct Bilirubin 0.00 Eosinophils # 0.0 Eosinophils % 2.0 Giant Platelets OCCASIONAL Globulin 3.80 H Glucose Level 92 # Hematocrit 25.8 L Hemoglobin 8.6 L Indirect Bilirubin 0.5 Lymphocytes # 0.4 L Lymphocytes % 65.0 H Mean Corpuscular Hemoglobin 30.0 Mean Corpuscular Hemoglobin Concent 33.3 Mean Corpuscular Volume 90.2 Mean Platelet Volume 9.1 Monocytes # 0.0 L Monocytes % 5.0 Neutrophils # 0.1 L Neutrophils % 21.0 L Platelet Count 35 L Platelet Estimate PLT APPEAR DECREASED Potassium Level 3.0 L Red Blood Count 2.86 L Red Cell Distribution Width 21.0 H Sodium Level 144 Total Bilirubin 0.5 Total Protein 6.9 White Blood Count 0.6 L Test 05/07/16 12:46 Bedside Glucose 225 H Medications Medications Current Medications Ondansetron HCl (Zofran Inj) 4 mg Q6H PRN IV NAUSEA AND/OR VOMITING Last administered on 04/30/16at 05:51; Admin Dose 4 MG; Start 04/10/16 at 19:00 Nitroglycerin (Nitroglycerin (Sl Tab) 0.4 Mg) 1 tab Q5M PRN SL CHEST PAIN; Start 04/10/16 at 19:00 Acetaminophen (Tylenol Tab) 650 mg Q6H PRN PO PAIN LEVEL 1-3 OR FEVER Last administered on 05/05/16at 10:07; Admin Dose 650 MG; Start 04/10/16 at 19:00 Acetaminophen/ Hydrocodone Bitart ([place] (5/325)) 1 tab Q6H PRN PO PAIN LEVEL 4 -6 Last administered on 04/14/16at 23:25; Admin Dose 1 TAB; Start 04/10/16 at 19: 00 Acetaminophen/ Hydrocodone Bitart ([place] (5/325)) 2 tab Q6H PRN PO PAIN LEVEL 7 -10 Last administered on 05/06/16at 19:58; Admin Dose 2 TAB; Start 04/10/16 at 19:00 Morphine Sulfate (morphine) 2 mg Q4H PRN IV PAIN LEVEL 7-10 Last administered on 04/29/16at 20:57; Admin Dose 2 MG; Start 04/10/16 at 19:00 Magnesium Hydroxide (Milk Of Mag) 30 ml DAILY PRN PO CONSTIPATION Last administered on 04/21/16at 05:00; Admin Dose 30 ML; Start 04/10/16 at 19:00 Bisacodyl (Dulcolax Supp) 10 mg DAILY PRN [place] CONSTIPATION; Start 04/10/16 at 19 :00 Pantoprazole (Protonix Tab) 40 mg DAILY@06 PO Last administered on 05/07/16 06: 40; Admin Dose 40 MG; Start 04/11/16 at 06:00 Miscellaneous Information 1 ea NOTE XX ; Start 04/10/16 at 19:00 Glucose (Glutose) 15 gm Q15M PRN PO DECREASED GLUCOSE; Start 04/10/16 at 19:00 Glucose (Glutose) 22.5 gm Q15M PRN PO DECREASED GLUCOSE; Start 04/10/16 at 19: 00 Dextrose (D50w Syringe) 25 ml Q15M PRN IV DECREASED GLUCOSE; Start 04/10/16 at 19:00 Dextrose (D50w Syringe) 50 ml Q15M PRN IV DECREASED GLUCOSE; Start 04/10/16 at 19:00 Glucagon (Glucagen) 1 mg Q15M PRN IM DECREASED GLUCOSE; Start 04/10/16 at 19:00 Glucose (Glutose) 15 gm Q15M PRN BUCCAL DECREASED GLUCOSE; Start 04/10/16 at 19 :00 Metoprolol Tartrate (Lopressor) 100 mg BID PO Last administered on 05/07/16 08: 41; Admin Dose 100 MG; Start 04/11/16 at 09:00 Docusate Sodium (Colace) 100 mg Q12H PO Last administered on 05/07/16 06:40; Admin Dose 100 MG; Start 04/11/16 at 19:00 Polyethylene Glycol (Miralax) 17 gm DAILY PO Last administered on 05/06/16at 09 :12; Admin Dose 17 GM; Start 04/11/16 at 13:00 Levofloxacin (Levaquin) 500 mg DAILY@06 PO Last administered on 05/07/16 06:38 ; Admin Dose 500 MG; Start 04/15/16 at 14:00 Collagenase (Santyl) 1 applic DAILY TOP Last administered on 05/07/16 08:42; Admin Dose 1 APPLIC; Start 04/17/16 at 16:00 Allopurinol (Zyloprim) 300 mg DAILY PO Last administered on 05/07/16 08:42; Admin Dose 300 MG; Start 04/18/16 at 09:30 IV Flush (NS 10 ml) 10 ml PRN PRN IV IV PROTOCOL Last administered on at 00:35; Admin Dose 10 ML; Start 04/18/16 at 11:30 Dexamethasone (Decadron) 10 mg Q4H PRN IV REACTION Last administered on at 16:58; Admin Dose 10 MG; Start 04/18/16 at 13:00 Diphenhydramine HCl 25 mg 25 mg Q4H PRN IV ALLERGIC REACTION Last administered on 04/24/16at 16:42; Admin Dose 25 MG; Start 04/18/16 at 13:00 Ondansetron HCl/ Sodium Chloride (Zofran Inj/NS) 54 ml @ 110 mls/hr Q8H PRN IV NAUSEA Last administered on 04/30/16at 09:51; Admin Dose 110 MLS/HR; Start 04/18/16 at 13:00 Amlodipine Besylate (Norvasc) 5 mg BID PO Last administered on 05/07/16 08:41; Admin Dose 5 MG; Start 04/21/16 at 21:00 Lisinopril (Zestril) 20 mg BID PO Last administered on 05/07/16 08:41; Admin Dose 20 MG; Start 04/21/16 at 21:00 Hydralazine HCl 10 mg 10 mg Q8H PRN IV ELEVATED BLOOD PRESSURE; Start at 12:00 Filgrastim/ Dextrose (Neupogen/D5W) 51.6 ml @ 103.2 mls/ hr DAILY@17 IVPB Last administered on 05/06/16at 17:27; Admin Dose 103.2 MLS/HR; Start 04/25/16 at 17:00 Fluconazole (Diflucan) 100 mg DAILY PO Last administered on 05/07/16 08:40; Admin Dose 100 MG; Start 04/27/16 at 09:00 Acyclovir (Zovirax) 400 mg BID PO Last administered on 05/07/16 08:42; Admin Dose 400 MG; Start 04/26/16 at 11:45 Insulin Glargine (Lantus) 40 unit QHS SC Last administered on 05/06/16at 22:19 ; Admin Dose 40 UNIT; Start 05/02/16 at 21:00 Prednisolone/ Sulfacetamide 2 drop 2 drop QID BOTH EYES Last administered on 12:51; Admin Dose 2 DROP; Start 05/02/16 at 17:00 Vancomycin HCl/ Sodium Chloride (Vancocin/NS) 250 ml @ 83.333 mls/ hr Q12H IVPB Last administered on 05/07/16 06:38; Admin Dose 83.333 MLS/HR; Start at 06:00 Miscellaneous Information (*Rx Drug Level Order Reminder*) VANCO TROUGH @ 0, 500 ON... ONCE ONCE XX ; Start 05/08/16 at 05:00; Stop 05/08/16 at 05:01 LENCHO ESQUIVEL NP May 07, 2016 15:46
--- NOTE | 2016-05-07 17:55 | PN ---
Date/Time of Note Date/Time of Note DATE: 05/07/16 TIME: 17:54 Assessment/Plan VTE Prophylaxis VTE Prophylaxis Intervention: ambulation Lines/Catheters IV [facility]ter Type (from [facility]): PICC Line Central line still needed: Yes Urinary Cath still in place: No Assessment/Plan Assessment/Plan 1. Hospital day 28 for this 55-year-old man with hairy cell leukemia, under active treatment with cladribine and rituximab. Admitted with acute on chronic anemia and thrombocytopenia. 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 His ANC low again today to about 120. Platelets slightly higher at 35k/ul. No bleeding. Hgb slightly about the same at 8.6. * Continue Neupogen * Continue Acyclovir and Diflucan * Screening for BK/COOPER viruses NEGATIVE; critical screening for rituximab infusion 2. Right 1st and 2nd toe cellulitis/osteomyelitis on MRI, exacerbated by persistent neutropenia post-chemotherapy.JOSE J-negative for endocarditis. Blood and urine cultures from 04/26/16 both grew Coagulase-negative Staph, sensitive to Vancomycin. * Continue Vancomycin and Levaquin per ID recommendations 3. Urine culture also positive for Radha, but with low colony count. 4. Diabetes. HbA1c 7.2%. Blood sugars were higher this morning, in the 200s, without obvious cause. He took his Lantus last night and has been very good about pre-prandial insulin. But tonight he refused the Lantus, and Sunday's sugars are likely to be higher. * Please make sure the Novolog insulin is given before he eats. * Continue Tradjenta * Continue Lantus dose of 40 units and preprandial insulin at 6 units * Controlled carbohydrate diet 5. Cardiomegaly, EF 50%. No further episodes of NSVT * Continue Lopressor/beta-alma 6. 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 * Continue acyclovir * Ophthalmology evaluation as soon as possible. 7. Hypertension. Mildly elevated yesterday, but improved today. * Continue Carvedilol, Norvasc and Lisinopril. * Use hydralazine PRN 8. Constipation * Continue Miralax and Colace 9. Prophylaxis: Protonix for GI prophylaxis and SCDs for DVT prophylaxis. 10. DISPOSITION: Waiting for normalization of the WBC count prior to discharge home. Subjective 24 Hr Interval Summary Free Text/Dictation In good spirits. No complaints. Exam/Review of Systems Vital Signs Vitals Vital Signs Date Time Temp Pulse Resp B/P Pulse Ox O2 Delivery O2 Flow Rate FiO2 05/07/16 08:13 98.0 80 18 112/71 96 05/06/16 20:26 Room Air Intake and Output 05/06/16 05/06/16 05/07/16 15:00 23:00 07:00 Intake Total 1981.6 ml 1200 ml Output Total 1400 ml 1000 ml Balance 581.6 ml 200 ml Exam Constitutional: alert, oriented Psych: no complaints ENMT: nl external ears & nose Neck: supple Respiratory: clear to auscultation Cardiovascular: regular rate and rhythm Gastrointestinal: soft Results Result Diagram: 05/07/16 0427 05/07/16 0427 Results 24 hrs Laboratory Tests Test 05/06/16 22:13 05/07/16 04:27 05/07/16 08:36 05/07/16 12:46 Bedside Glucose 185 102 225 H Alanine Aminotransferase (ALT/SGPT) 43 Albumin 3.1 L Albumin/Globulin Ratio 0.81 Alkaline Phosphatase 108 Anion Gap 13 Anisocytosis 2+ Aspartate Amino Transf (AST/SGOT) 19 Band Neutrophils % 7.0 H Basophils # Basophils % Blood Morphology Comment Blood Urea Nitrogen 15 Calcium Level 8.0 L Carbon Dioxide Level 31 Chloride Level 103 Creatinine 1.07 Differential Comment Dimorphic Red Blood Cells OCCASIONAL Direct Bilirubin 0.00 Eosinophils # 0.0 Eosinophils % 2.0 Giant Platelets OCCASIONAL Globulin 3.80 H Glucose Level 92 # Hematocrit 25.8 L Hemoglobin 8.6 L Indirect Bilirubin 0.5 Lymphocytes # 0.4 L Lymphocytes % 65.0 H Mean Corpuscular Hemoglobin 30.0 Mean Corpuscular Hemoglobin Concent 33.3 Mean Corpuscular Volume 90.2 Mean Platelet Volume 9.1 Monocytes # 0.0 L Monocytes % 5.0 Neutrophils # 0.1 L Neutrophils % 21.0 L Platelet Count 35 L Platelet Estimate PLT APPEAR DECREASED Potassium Level 3.0 L Red Blood Count 2.86 L Red Cell Distribution Width 21.0 H Sodium Level 144 Total Bilirubin 0.5 Total Protein 6.9 White Blood Count 0.6 L Medications Medications Current Medications Ondansetron HCl (Zofran Inj) 4 mg Q6H PRN IV NAUSEA AND/OR VOMITING Last administered on 04/30/16at 05:51; Admin Dose 4 MG; Start 04/10/16 at 19:00 Nitroglycerin (Nitroglycerin (Sl Tab) 0.4 Mg) 1 tab Q5M PRN SL CHEST PAIN; Start 04/10/16 at 19:00 Acetaminophen (Tylenol Tab) 650 mg Q6H PRN PO PAIN LEVEL 1-3 OR FEVER Last administered on 05/05/16at 10:07; Admin Dose 650 MG; Start 04/10/16 at 19:00 Acetaminophen/ Hydrocodone Bitart ([place] (5/325)) 1 tab Q6H PRN PO PAIN LEVEL 4 -6 Last administered on 04/14/16at 23:25; Admin Dose 1 TAB; Start 04/10/16 at 19: 00 Acetaminophen/ Hydrocodone Bitart ([place] (5/325)) 2 tab Q6H PRN PO PAIN LEVEL 7 -10 Last administered on 05/06/16at 19:58; Admin Dose 2 TAB; Start 04/10/16 at 19:00 Morphine Sulfate (morphine) 2 mg Q4H PRN IV PAIN LEVEL 7-10 Last administered on 04/29/16at 20:57; Admin Dose 2 MG; Start 04/10/16 at 19:00 Magnesium Hydroxide (Milk Of Mag) 30 ml DAILY PRN PO CONSTIPATION Last administered on 04/21/16at 05:00; Admin Dose 30 ML; Start 04/10/16 at 19:00 Bisacodyl (Dulcolax Supp) 10 mg DAILY PRN [place] CONSTIPATION; Start 04/10/16 at 19 :00 Pantoprazole (Protonix Tab) 40 mg DAILY@06 PO Last administered on 05/07/16 06: 40; Admin Dose 40 MG; Start 04/11/16 at 06:00 Miscellaneous Information 1 ea NOTE XX ; Start 04/10/16 at 19:00 Glucose (Glutose) 15 gm Q15M PRN PO DECREASED GLUCOSE; Start 04/10/16 at 19:00 Glucose (Glutose) 22.5 gm Q15M PRN PO DECREASED GLUCOSE; Start 04/10/16 at 19: 00 Dextrose (D50w Syringe) 25 ml Q15M PRN IV DECREASED GLUCOSE; Start 04/10/16 at 19:00 Dextrose (D50w Syringe) 50 ml Q15M PRN IV DECREASED GLUCOSE; Start 04/10/16 at 19:00 Glucagon (Glucagen) 1 mg Q15M PRN IM DECREASED GLUCOSE; Start 04/10/16 at 19:00 Glucose (Glutose) 15 gm Q15M PRN BUCCAL DECREASED GLUCOSE; Start 04/10/16 at 19 :00 Metoprolol Tartrate (Lopressor) 100 mg BID PO Last administered on 05/07/16 08: 41; Admin Dose 100 MG; Start 04/11/16 at 09:00 Docusate Sodium (Colace) 100 mg Q12H PO Last administered on 05/07/16 06:40; Admin Dose 100 MG; Start 04/11/16 at 19:00 Polyethylene Glycol (Miralax) 17 gm DAILY PO Last administered on 05/06/16at 09 :12; Admin Dose 17 GM; Start 04/11/16 at 13:00 Levofloxacin (Levaquin) 500 mg DAILY@06 PO Last administered on 05/07/16 06:38 ; Admin Dose 500 MG; Start 04/15/16 at 14:00 Collagenase (Santyl) 1 applic DAILY TOP Last administered on 05/07/16 08:42; Admin Dose 1 APPLIC; Start 04/17/16 at 16:00 Allopurinol (Zyloprim) 300 mg DAILY PO Last administered on 05/07/16 08:42; Admin Dose 300 MG; Start 04/18/16 at 09:30 IV Flush (NS 10 ml) 10 ml PRN PRN IV IV PROTOCOL Last administered on at 00:35; Admin Dose 10 ML; Start 04/18/16 at 11:30 Dexamethasone (Decadron) 10 mg Q4H PRN IV REACTION Last administered on at 16:58; Admin Dose 10 MG; Start 04/18/16 at 13:00 Diphenhydramine HCl 25 mg 25 mg Q4H PRN IV ALLERGIC REACTION Last administered on 04/24/16at 16:42; Admin Dose 25 MG; Start 04/18/16 at 13:00 Ondansetron HCl/ Sodium Chloride (Zofran Inj/NS) 54 ml @ 110 mls/hr Q8H PRN IV NAUSEA Last administered on 04/30/16 09:51; Admin Dose 110 MLS/HR; Start 04/18/16 at 13:00 Amlodipine Besylate (Norvasc) 5 mg BID PO Last administered on 05/07/16 08:41; Admin Dose 5 MG; Start 04/21/16 at 21:00 Lisinopril (Zestril) 20 mg BID PO Last administered on 05/07/16 08:41; Admin Dose 20 MG; Start 04/21/16 at 21:00 Hydralazine HCl 10 mg 10 mg Q8H PRN IV ELEVATED BLOOD PRESSURE; Start at 12:00 Filgrastim/ Dextrose (Neupogen/D5W) 51.6 ml @ 103.2 mls/ hr DAILY@17 IVPB Last administered on 05/06/16 17:27; Admin Dose 103.2 MLS/HR; Start 04/25/16 at 17:00 Fluconazole (Diflucan) 100 mg DAILY PO Last administered on 05/07/16 08:40; Admin Dose 100 MG; Start 04/27/16 at 09:00 Acyclovir (Zovirax) 400 mg BID PO Last administered on 05/07/16 08:42; Admin Dose 400 MG; Start 04/26/16 at 11:45 Insulin Glargine (Lantus) 40 unit QHS SC Last administered on 05/06/16 22:19 ; Admin Dose 40 UNIT; Start 05/02/16 at 21:00 Prednisolone/ Sulfacetamide 2 drop 2 drop QID BOTH EYES Last administered on 12:51; Admin Dose 2 DROP; Start 05/02/16 at 17:00 Vancomycin HCl/ Sodium Chloride (Vancocin/NS) 250 ml @ 83.333 mls/ hr Q12H IVPB Last administered on 05/07/16 06:38; Admin Dose 83.333 MLS/HR; Start at 06:00 Miscellaneous Information (*Rx Drug Level Order Reminder*) VANCO TROUGH @ 0, 500 ON... ONCE ONCE XX ; Start 05/08/16 at 05:00; Stop 05/08/16 at 05:01 EDNA STERN MD May 07, 2016 17:55
[2016-05-07] MEDS: DEXTROSE 5% IVPB SCH (18:04)
[2016-05-07] MEDS: FILGRASTIM IVPB SCH (18:04)
[2016-05-07 20:18] VITALS: BP 159/90; RESP 18
[2016-05-07] MEDS: INSULIN GLARGINE [LANtus] 3 ML PEN SC SCH (21:04)
[2016-05-07] MEDS: HYDROCODONE/APAP (5/325) TAB PO PRN (23:03)
[2016-05-08 06:19] LABS: HEMATOCRIT 25.1 % (42.0-52.0); HEMOGLOBIN 8.3 g/dl (14.0-18.0); MEAN CORPUSCULAR HEMOGLOBIN 29.9 pg (29.0-33.0); MEAN CORPUSCULAR VOLUME 90.6 fl (82.0-101.0); MEAN PLATELET VOLUME 9.3 fl (7.4-10.4); PLATELET COUNT 34 10^3/UL (140-440); RED BLOOD COUNT 2.77 10^6/ul (4.70-6.10); RED CELL DISTRIBUTION WIDTH 21.1 % (11.5-14.5); UNCORRECTED WBC 0.7 10^3/ul (4.8-10.8); WHITE BLOOD COUNT 0.7 10^3/ul (4.8-10.8)
[2016-05-08 06:28] LABS: CONDITION 1; LH ANALYZER COMMENTS 1; SUSPECT 1
[2016-05-08] MEDS: DOCUSATE SODIUM 100 MG CAP PO SCH ×2 (06:39→18:55)
[2016-05-08] MEDS: PANTOPRAZOLE (EC) 40 MG TAB PO SCH (06:39)
[2016-05-08] MEDS: LEVOFLOXACIN 500 MG TAB PO SCH (06:39)
[2016-05-08 07:16] LABS: ALBUMIN 2.8 g/dl (3.3-4.9)
[2016-05-08 07:17] LABS: POTASSIUM 3.3 mmol/L (3.5-5.1)
[2016-05-08 07:19] LABS: ALBUMIN/GLOBULIN RATIO 0.82; BILIRUBIN,INDIRECT 0.4 mg/dl (0-1.1); BILIRUBIN,TOTAL 0.4 mg/dl (0.2-1.3); CREATININE 1.25 mg/dl (0.61-1.24); TOTAL PROTEIN 6.2 g/dl (6.1-8.1)
[2016-05-08 07:20] LABS: CALCIUM 7.8 mg/dl (8.4-10.2)
[2016-05-08 08:00] VITALS: BP 131/84; PULSE 85; RESP 18
[2016-05-08] MEDS: FLUCONAZOLE 100 MG TAB PO SCH (08:41)
[2016-05-08] MEDS: ACYCLOVIR 400 MG TAB PO SCH ×2 (08:41→22:03)
[2016-05-08] MEDS: METOPROLOL 100 MG TAB PO SCH ×2 (08:42→22:01)
[2016-05-08] MEDS: LISINOPRIL 20 MG TAB PO SCH ×2 (08:42→22:02)
[2016-05-08] MEDS: ALLOPURINOL 300 MG TAB PO SCH (08:42)
[2016-05-08] MEDS: AMLODIPINE 5 MG TAB PO SCH ×2 (08:43→22:03)
[2016-05-08] MEDS: PREDNISOLONE/SULFACETAMIDE 5 ML OPH BOTH EYES SCH ×4 (08:43→22:00)
[2016-05-08] MEDS: INSULIN ASPART [NOVOLOG] 3 ML PEN SC SCH ×6 (08:45→17:47)
[2016-05-08] MEDS: COLLAGENASE 30 GM TUBE TOP SCH (08:46)
[2016-05-08] MEDS: POLYETHYLENE GLYCOL 17 GM PACKET PO SCH (09:00)
[2016-05-08 09:40] LABS: LYMPHOCYTES # 0.4 10^3/ul (0.8-2.9); NEUTROPHIL # 0.3 10^3/ul (1.6-7.5)
[2016-05-08 09:41] LABS: PLATELET ESTIMATE PLT APPEAR DECREASED
[2016-05-08] MEDS ORDERED: VANCOMYCIN 1 GM in NS 250 ML IVPB SCH (10:00)
[2016-05-08] MEDS: VANCOMYCIN 750 MG in SOD CHLORIDE 0.9% 150 ML IVPB SCH ×2 (11:21→23:09)
--- NOTE | 2016-05-08 12:05 | PN ---
Date/Time of Note Date/Time of Note DATE: 05/08/16 TIME: 12:03 Assessment/Plan VTE Prophylaxis VTE Prophylaxis Intervention: SCD's VTE Contraindication Reason: thrombocytopenia Lines/Catheters IV Catheter Type (from Nrs): PICC Line Central line still needed: Yes Urinary Cath still in place: No Assessment/Plan Assessment/Plan 1. 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 Admitted with acute on chronic anemia and thrombocytopenia. 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 His ANC low again today, but recovering slowly. Platelets slightly higher at 35k/ul. No bleeding. Hgb about the same. * Continue Neupogen * Continue anti-microbials * Screening for BK/COOPER viruses NEGATIVE; critical screening for rituximab infusion 2. Right 1st and 2nd toe cellulitis/osteomyelitis on MRI, exacerbated by persistent neutropenia post-chemotherapy.JOSE J-negative for endocarditis. Blood and urine cultures from 04/26/16 both grew Coagulase-negative Staph, sensitive to Vancomycin. * Continue Vancomycin and Levaquin per ID recommendations 3. Urine culture also positive for Radha, but with low colony count. 4. Diabetes. HbA1c 7.2%. Blood sugars were higher this morning, in the 200s, without obvious cause. He took his Lantus last night and has been very good about pre-prandial insulin. But tonight he refused the Lantus, and Sunday's sugars are likely to be higher. * Please make sure the Novolog insulin is given before he eats. * Continue Tradjenta * Continue Lantus dose of 40 units and preprandial insulin at 6 units * Controlled carbohydrate diet 5. Cardiomegaly, EF 50%. No further episodes of NSVT * Continue Lopressor/beta-alma 6. 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 * Continue acyclovir * Ophthalmology evaluation as soon as possible. 7. Hypertension. Mildly elevated yesterday, but improved today. * Continue Carvedilol, Norvasc and Lisinopril. * Use hydralazine PRN 8. Constipation * Continue Miralax and Colace 9. Prophylaxis: Protonix for GI prophylaxis and SCDs for DVT prophylaxis. 10. DISPOSITION: Waiting for normalization of the WBC count prior to discharge home. Subjective 24 Hr Interval Summary Free Text/Dictation No complaints. Blood counts still low. In good spirits. Exam/Review of Systems Vital Signs Vitals Vital Signs Date Time Temp Pulse Resp B/P Pulse Ox O2 Delivery O2 Flow Rate FiO2 05/08/16 08:00 98.1 85 18 131/84 97 Room Air Intake and Output 05/07/16 05/07/16 05/08/16 15:00 23:00 07:00 Intake Total 1981.6 ml 800 ml Output Total 1400 ml 1200 ml Balance 581.6 ml -400 ml Exam Constitutional: alert, oriented Psych: no complaints Head: normocephalic Eyes: nl conjunctiva ENMT: nl external ears & nose Neck: supple Respiratory: clear to auscultation Cardiovascular: regular rate and rhythm Gastrointestinal: soft Results Result Diagram: 05/08/16 0445 05/08/16 0445 Results 24 hrs Laboratory Tests Test 05/07/16 12:46 05/07/16 18:01 05/07/16 20:04 05/08/16 04:45 Bedside Glucose 225 H 205 206 Alanine Aminotransferase (ALT/SGPT) 34 Albumin 2.8 L Albumin/Globulin Ratio 0.82 Alkaline Phosphatase 104 Anion Gap 13 Aspartate Amino Transf (AST/SGOT) 14 L Band Neutrophils % 3.0 Basophils # Basophils % Blood Morphology Comment Blood Urea Nitrogen 16 Calcium Level 7.8 L Carbon Dioxide Level 29 Chloride Level 104 Creatinine 1.25 H Direct Bilirubin 0.00 Eosinophils # 0.0 Eosinophils % 3.0 Globulin 3.40 H Glucose Level 228 #H Hematocrit 25.1 L Hemoglobin 8.3 L Indirect Bilirubin 0.4 Lymphocytes # 0.4 L Lymphocytes % 54.0 H Mean Corpuscular Hemoglobin 29.9 Mean Corpuscular Hemoglobin Concent 33.0 Mean Corpuscular Volume 90.6 Mean Platelet Volume 9.3 Monocytes # 0.0 L Monocytes % 2.0 Neutrophils # 0.3 L Neutrophils % 38.0 L Nucleated Red Blood Cells # Platelet Count 34 L Platelet Estimate PLT APPEAR DECREASED Potassium Level 3.3 L Red Blood Count 2.77 L Red Cell Distribution Width 21.1 H Sodium Level 143 Total Bilirubin 0.4 Total Protein 6.2 Vancomycin Level Trough 21.2 *H White Blood Count 0.7 L Test 05/08/16 08:36 Bedside Glucose 217 Medications Medications Current Medications Ondansetron HCl (Zofran Inj) 4 mg Q6H PRN IV NAUSEA AND/OR VOMITING Last administered on 04/30/16 05:51; Admin Dose 4 MG; Start 04/10/16 at 19:00 Nitroglycerin (Nitroglycerin (Sl Tab) 0.4 Mg) 1 tab Q5M PRN SL CHEST PAIN; Start 04/10/16 at 19:00 Acetaminophen (Tylenol Tab) 650 mg Q6H PRN PO PAIN LEVEL 1-3 OR FEVER Last administered on 05/05/16 10:07; Admin Dose 650 MG; Start 04/10/16 at 19:00 Acetaminophen/ Hydrocodone Bitart ([place] (5/325)) 1 tab Q6H PRN PO PAIN LEVEL 4 -6 Last administered on 04/14/16 23:25; Admin Dose 1 TAB; Start 04/10/16 at 19: 00 Acetaminophen/ Hydrocodone Bitart ([place] (5/325)) 2 tab Q6H PRN PO PAIN LEVEL 7 -10 Last administered on 05/07/16 23:03; Admin Dose 2 TAB; Start 04/10/16 at 19: 00 Morphine Sulfate (morphine) 2 mg Q4H PRN IV PAIN LEVEL 7-10 Last administered on 04/29/16 20:57; Admin Dose 2 MG; Start 04/10/16 at 19:00 Magnesium Hydroxide (Milk Of Mag) 30 ml DAILY PRN PO CONSTIPATION Last administered on 04/21/16 05:00; Admin Dose 30 ML; Start 04/10/16 at 19:00 Bisacodyl (Dulcolax Supp) 10 mg DAILY PRN [place] CONSTIPATION; Start 04/10/16 at 19 :00 Pantoprazole (Protonix Tab) 40 mg DAILY@06 PO Last administered on 05/08/16 06: 39; Admin Dose 40 MG; Start 04/11/16 at 06:00 Miscellaneous Information 1 ea NOTE XX ; Start 04/10/16 at 19:00 Glucose (Glutose) 15 gm Q15M PRN PO DECREASED GLUCOSE; Start 04/10/16 at 19:00 Glucose (Glutose) 22.5 gm Q15M PRN PO DECREASED GLUCOSE; Start 04/10/16 at 19: 00 Dextrose (D50w Syringe) 25 ml Q15M PRN IV DECREASED GLUCOSE; Start 04/10/16 at 19:00 Dextrose (D50w Syringe) 50 ml Q15M PRN IV DECREASED GLUCOSE; Start 04/10/16 at 19:00 Glucagon (Glucagen) 1 mg Q15M PRN IM DECREASED GLUCOSE; Start 04/10/16 at 19:00 Glucose (Glutose) 15 gm Q15M PRN BUCCAL DECREASED GLUCOSE; Start 04/10/16 at 19 :00 Metoprolol Tartrate (Lopressor) 100 mg BID PO Last administered on 05/08/16 08: 42; Admin Dose 100 MG; Start 04/11/16 at 09:00 Docusate Sodium (Colace) 100 mg Q12H PO Last administered on 05/08/16 06:39; Admin Dose 100 MG; Start 04/11/16 at 19:00 Polyethylene Glycol (Miralax) 17 gm DAILY PO Last administered on 05/06/16at 09 :12; Admin Dose 17 GM; Start 04/11/16 at 13:00 Levofloxacin (Levaquin) 500 mg DAILY@06 PO Last administered on 05/08/16 06:39 ; Admin Dose 500 MG; Start 04/15/16 at 14:00 Collagenase (Santyl) 1 applic DAILY TOP Last administered on 05/08/16 08:46; Admin Dose 1 APPLIC; Start 04/17/16 at 16:00 Allopurinol (Zyloprim) 300 mg DAILY PO Last administered on 05/08/16 08:42; Admin Dose 300 MG; Start 04/18/16 at 09:30 IV Flush (NS 10 ml) 10 ml PRN PRN IV IV PROTOCOL Last administered on at 00:35; Admin Dose 10 ML; Start 04/18/16 at 11:30 Dexamethasone (Decadron) 10 mg Q4H PRN IV REACTION Last administered on at 16:58; Admin Dose 10 MG; Start 04/18/16 at 13:00 Diphenhydramine HCl 25 mg 25 mg Q4H PRN IV ALLERGIC REACTION Last administered on 04/24/16at 16:42; Admin Dose 25 MG; Start 04/18/16 at 13:00 Ondansetron HCl/ Sodium Chloride (Zofran Inj/NS) 54 ml @ 110 mls/hr Q8H PRN IV NAUSEA Last administered on 04/30/16at 09:51; Admin Dose 110 MLS/HR; Start 04/18/16 at 13:00 Amlodipine Besylate (Norvasc) 5 mg BID PO Last administered on 05/08/16 08:43; Admin Dose 5 MG; Start 04/21/16 at 21:00 Lisinopril (Zestril) 20 mg BID PO Last administered on 05/08/16 08:42; Admin Dose 20 MG; Start 04/21/16 at 21:00 Hydralazine HCl 10 mg 10 mg Q8H PRN IV ELEVATED BLOOD PRESSURE; Start at 12:00 Filgrastim/ Dextrose (Neupogen/D5W) 51.6 ml @ 103.2 mls/ hr DAILY@17 IVPB Last administered on 05/07/16 18:04; Admin Dose 103.2 MLS/HR; Start 04/25/16 at 17:00 Fluconazole (Diflucan) 100 mg DAILY PO Last administered on 05/08/16 08:41; Admin Dose 100 MG; Start 04/27/16 at 09:00 Acyclovir (Zovirax) 400 mg BID PO Last administered on 05/08/16 08:41; Admin Dose 400 MG; Start 04/26/16 at 11:45 Insulin Glargine (Lantus) 40 unit QHS SC Last administered on 05/07/16 21:04; Admin Dose 40 UNIT; Start 05/02/16 at 21:00 Prednisolone/ Sulfacetamide 2 drop 2 drop QID BOTH EYES Last administered on 08:43; Admin Dose 2 DROP; Start 05/02/16 at 17:00 Vancomycin HCl/ Sodium Chloride (Vancocin/NS) 150 ml @ 75 mls/hr Q12H IVPB Last administered on 05/08/16 11:21; Admin Dose 75 MLS/HR; Start 05/08/16 at 11: 00 EDNA STERN MD May 08, 2016 12:05
--- NOTE | 2016-05-08 12:30 | CONS ---
Date/Time of Note Date/Time of Note DATE: 05/08/16 TIME: 12:29 Assessment/Plan Assessment/Plan Chief Complaint/Hosp Course ID PROGRESS NOTE 24H INTERVAL SUMMARY * A/A/O -- watching TV, no fevers. WBC 0.7 * ANTIMICROBIALS: 1. Vancomycin. 2. Levaquin PHYSICAL EXAMINATION: GENERAL: Obese M, resting, awake, alert, VSS, NAD HEENT: Unremarkable except low vision NECK: Supple. Trachea midline. LUNGS: Chest rise symmetrical, without dyspnea on observation ABDOMEN: Soft EXTREMITIES: With right foot edema ID ASSESSMENT: 1. 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 Pancytopenia due to #1 3. Right diabetic foot ulcer with toe osteomyelitis=> podiatry on case. * MRI showed evidence of osteomyelitis at the second middle and distal phalanges. 4. s/p Systemic inflammatory response syndrome with fever on admission, elevated ESR, significant thrombocytopenia and anemia. * (+)Bacteremia 04/26/1605/08 bottles: COAGULASE NEGATIVE STAPH * JOSE J revealed no vegetations 5. 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 Hypertension. 7. Legally blind. (-)MRSA Nares Screen CURRENT ABX: Vanco IV + Levaquin PO s/p Zosyn ID RECOMMENDATIONS/PLAN: Clinically stable = continue current ABX f/u podiatry rec-s. If he spikes temp = repeat BCx via PICC Chemo per oncology rec-s . . Problems: Consultation Date/Type/Reason Admit Date/Time Apr 10, 2016 at 16:55 Initial Consult Date 04/11/16 Type of Consultation: ID Referring Provider: LAUREL ANDERSON Exam/Review of Systems Vital Signs Vitals Vital Signs Date Time Temp Pulse Resp B/P Pulse Ox O2 Delivery O2 Flow Rate FiO2 05/08/16 08:00 98.1 85 18 131/84 97 Room Air Intake and Output 05/07/16 05/07/16 05/08/16 15:00 23:00 07:00 Intake Total 1981.6 ml 800 ml Output Total 1400 ml 1200 ml Balance 581.6 ml -400 ml Results Result Diagram: 05/08/16 0445 05/08/16 0445 Results 24 hrs Laboratory Tests Test 05/07/16 12:46 05/07/16 18:01 05/07/16 20:04 05/08/16 04:45 Bedside Glucose 225 H 205 206 Alanine Aminotransferase (ALT/SGPT) 34 Albumin 2.8 L Albumin/Globulin Ratio 0.82 Alkaline Phosphatase 104 Anion Gap 13 Aspartate Amino Transf (AST/SGOT) 14 L Band Neutrophils % 3.0 Basophils # Basophils % Blood Morphology Comment Blood Urea Nitrogen 16 Calcium Level 7.8 L Carbon Dioxide Level 29 Chloride Level 104 Creatinine 1.25 H Direct Bilirubin 0.00 Eosinophils # 0.0 Eosinophils % 3.0 Globulin 3.40 H Glucose Level 228 #H Hematocrit 25.1 L Hemoglobin 8.3 L Indirect Bilirubin 0.4 Lymphocytes # 0.4 L Lymphocytes % 54.0 H Mean Corpuscular Hemoglobin 29.9 Mean Corpuscular Hemoglobin Concent 33.0 Mean Corpuscular Volume 90.6 Mean Platelet Volume 9.3 Monocytes # 0.0 L Monocytes % 2.0 Neutrophils # 0.3 L Neutrophils % 38.0 L Nucleated Red Blood Cells # Platelet Count 34 L Platelet Estimate PLT APPEAR DECREASED Potassium Level 3.3 L Red Blood Count 2.77 L Red Cell Distribution Width 21.1 H Sodium Level 143 Total Bilirubin 0.4 Total Protein 6.2 Vancomycin Level Trough 21.2 *H White Blood Count 0.7 L Test 05/08/16 08:36 05/08/16 12:27 Bedside Glucose 217 361 H Medications Medications Current Medications Ondansetron HCl (Zofran Inj) 4 mg Q6H PRN IV NAUSEA AND/OR VOMITING Last administered on 04/30/16at 05:51; Admin Dose 4 MG; Start 04/10/16 at 19:00 Nitroglycerin (Nitroglycerin (Sl Tab) 0.4 Mg) 1 tab Q5M PRN SL CHEST PAIN; Start 04/10/16 at 19:00 Acetaminophen (Tylenol Tab) 650 mg Q6H PRN PO PAIN LEVEL 1-3 OR FEVER Last administered on 05/05/16at 10:07; Admin Dose 650 MG; Start 04/10/16 at 19:00 Acetaminophen/ Hydrocodone Bitart ([place] (5/325)) 1 tab Q6H PRN PO PAIN LEVEL 4 -6 Last administered on 04/14/16at 23:25; Admin Dose 1 TAB; Start 04/10/16 at 19: 00 Acetaminophen/ Hydrocodone Bitart ([place] (5/325)) 2 tab Q6H PRN PO PAIN LEVEL 7 -10 Last administered on 05/07/16 23:03; Admin Dose 2 TAB; Start 04/10/16 at 19: 00 Morphine Sulfate (morphine) 2 mg Q4H PRN IV PAIN LEVEL 7-10 Last administered on 04/29/16at 20:57; Admin Dose 2 MG; Start 04/10/16 at 19:00 Magnesium Hydroxide (Milk Of Mag) 30 ml DAILY PRN PO CONSTIPATION Last administered on 04/21/16at 05:00; Admin Dose 30 ML; Start 04/10/16 at 19:00 Bisacodyl (Dulcolax Supp) 10 mg DAILY PRN [place] CONSTIPATION; Start 04/10/16 at 19 :00 Pantoprazole (Protonix Tab) 40 mg DAILY@06 PO Last administered on 05/08/16 06: 39; Admin Dose 40 MG; Start 04/11/16 at 06:00 Miscellaneous Information 1 ea NOTE XX ; Start 04/10/16 at 19:00 Glucose (Glutose) 15 gm Q15M PRN PO DECREASED GLUCOSE; Start 04/10/16 at 19:00 Glucose (Glutose) 22.5 gm Q15M PRN PO DECREASED GLUCOSE; Start 04/10/16 at 19: 00 Dextrose (D50w Syringe) 25 ml Q15M PRN IV DECREASED GLUCOSE; Start 04/10/16 at 19:00 Dextrose (D50w Syringe) 50 ml Q15M PRN IV DECREASED GLUCOSE; Start 04/10/16 at 19:00 Glucagon (Glucagen) 1 mg Q15M PRN IM DECREASED GLUCOSE; Start 04/10/16 at 19:00 Glucose (Glutose) 15 gm Q15M PRN BUCCAL DECREASED GLUCOSE; Start 04/10/16 at 19 :00 Metoprolol Tartrate (Lopressor) 100 mg BID PO Last administered on 05/08/16 08: 42; Admin Dose 100 MG; Start 04/11/16 at 09:00 Docusate Sodium (Colace) 100 mg Q12H PO Last administered on 05/08/16 06:39; Admin Dose 100 MG; Start 04/11/16 at 19:00 Polyethylene Glycol (Miralax) 17 gm DAILY PO Last administered on 05/06/16at 09 :12; Admin Dose 17 GM; Start 04/11/16 at 13:00 Levofloxacin (Levaquin) 500 mg DAILY@06 PO Last administered on 05/08/16 06:39 ; Admin Dose 500 MG; Start 04/15/16 at 14:00 Collagenase (Santyl) 1 applic DAILY TOP Last administered on 05/08/16 08:46; Admin Dose 1 APPLIC; Start 04/17/16 at 16:00 Allopurinol (Zyloprim) 300 mg DAILY PO Last administered on 05/08/16 08:42; Admin Dose 300 MG; Start 04/18/16 at 09:30 IV Flush (NS 10 ml) 10 ml PRN PRN IV IV PROTOCOL Last administered on at 00:35; Admin Dose 10 ML; Start 04/18/16 at 11:30 Dexamethasone (Decadron) 10 mg Q4H PRN IV REACTION Last administered on at 16:58; Admin Dose 10 MG; Start 04/18/16 at 13:00 Diphenhydramine HCl 25 mg 25 mg Q4H PRN IV ALLERGIC REACTION Last administered on 04/24/16 16:42; Admin Dose 25 MG; Start 04/18/16 at 13:00 Ondansetron HCl/ Sodium Chloride (Zofran Inj/NS) 54 ml @ 110 mls/hr Q8H PRN IV NAUSEA Last administered on 04/30/16 09:51; Admin Dose 110 MLS/HR; Start 04/18/16 at 13:00 Amlodipine Besylate (Norvasc) 5 mg BID PO Last administered on 05/08/16 08:43; Admin Dose 5 MG; Start 04/21/16 at 21:00 Lisinopril (Zestril) 20 mg BID PO Last administered on 05/08/16 08:42; Admin Dose 20 MG; Start 04/21/16 at 21:00 Hydralazine HCl 10 mg 10 mg Q8H PRN IV ELEVATED BLOOD PRESSURE; Start at 12:00 Filgrastim/ Dextrose (Neupogen/D5W) 51.6 ml @ 103.2 mls/ hr DAILY@17 IVPB Last administered on 05/07/16 18:04; Admin Dose 103.2 MLS/HR; Start 04/25/16 at 17:00 Fluconazole (Diflucan) 100 mg DAILY PO Last administered on 05/08/16 08:41; Admin Dose 100 MG; Start 04/27/16 at 09:00 Acyclovir (Zovirax) 400 mg BID PO Last administered on 05/08/16 08:41; Admin Dose 400 MG; Start 04/26/16 at 11:45 Insulin Glargine (Lantus) 40 unit QHS SC Last administered on 05/07/16 21:04; Admin Dose 40 UNIT; Start 05/02/16 at 21:00 Prednisolone/ Sulfacetamide 2 drop 2 drop QID BOTH EYES Last administered on 08:43; Admin Dose 2 DROP; Start 05/02/16 at 17:00 Vancomycin HCl/ Sodium Chloride (Vancocin/NS) 150 ml @ 75 mls/hr Q12H IVPB Last administered on 05/08/16 11:21; Admin Dose 75 MLS/HR; Start 05/08/16 at 11: 00 LENCHO ESQUIVEL NP May 08, 2016 12:30
[2016-05-08] MEDS ORDERED: POTASSIUM CHLORIDE (SR) 20 MEQ TAB PO STA (12:44)
[2016-05-08] MEDS: FILGRASTIM IVPB SCH (17:39)
[2016-05-08] MEDS: DEXTROSE 5% IVPB SCH (17:39)
[2016-05-08 20:14] VITALS: BP 122/79; RESP 18
[2016-05-08] MEDS: HYDROCODONE/APAP (5/325) TAB PO PRN (22:05)
[2016-05-08] MEDS: INSULIN GLARGINE [LANtus] 3 ML PEN SC SCH (22:05)
[2016-05-09 05:26] LABS: HEMATOCRIT 24.8 % (42.0-52.0); HEMOGLOBIN 8.3 g/dl (14.0-18.0); MEAN CORPUSCULAR HEMOGLOBIN 30.2 pg (29.0-33.0); MEAN CORPUSCULAR HGB CONC 33.4 g/dl (32.0-37.0); MEAN CORPUSCULAR VOLUME 90.4 fl (82.0-101.0); PLATELET COUNT 41 10^3/UL (140-440); RED BLOOD COUNT 2.74 10^6/ul (4.70-6.10); RED CELL DISTRIBUTION WIDTH 21.7 % (11.5-14.5); UNCORRECTED WBC 0.7 10^3/ul (4.8-10.8); WHITE BLOOD COUNT 0.7 10^3/ul (4.8-10.8)
[2016-05-09 05:28] LABS: ALBUMIN 3.1 g/dl (3.3-4.9)
[2016-05-09 05:29] LABS: POTASSIUM 3.3 mmol/L (3.5-5.1)
[2016-05-09 05:31] LABS: ALBUMIN/GLOBULIN RATIO 0.86; BILIRUBIN,INDIRECT 0.3 mg/dl (0-1.1); BILIRUBIN,TOTAL 0.3 mg/dl (0.2-1.3); CREATININE 1.19 mg/dl (0.61-1.24); TOTAL PROTEIN 6.7 g/dl (6.1-8.1)
[2016-05-09 05:32] LABS: CALCIUM 7.9 mg/dl (8.4-10.2)
[2016-05-09 05:33] LABS: CONDITION 1; LH ANALYZER COMMENTS 1; SUSPECT 1
[2016-05-09] MEDS: PANTOPRAZOLE (EC) 40 MG TAB PO SCH (06:20)
[2016-05-09] MEDS: LEVOFLOXACIN 500 MG TAB PO SCH (06:20)
[2016-05-09] MEDS: DOCUSATE SODIUM 100 MG CAP PO SCH ×2 (06:20→18:05)
[2016-05-09] MEDS: INSULIN ASPART [NOVOLOG] 3 ML PEN SC SCH ×6 (07:48→18:05)
[2016-05-09 07:56] VITALS: BP 125/76; RESP 20
[2016-05-09] MEDS: FLUCONAZOLE 100 MG TAB PO SCH (08:20)
[2016-05-09] MEDS: ACYCLOVIR 400 MG TAB PO SCH ×2 (08:20→21:32)
[2016-05-09] MEDS: POLYETHYLENE GLYCOL 17 GM PACKET PO SCH (08:20)
[2016-05-09] MEDS: ALLOPURINOL 300 MG TAB PO SCH (08:21)
[2016-05-09] MEDS: AMLODIPINE 5 MG TAB PO SCH ×2 (08:22→21:33)
[2016-05-09] MEDS: LISINOPRIL 20 MG TAB PO SCH ×2 (08:23→21:32)
[2016-05-09] MEDS: METOPROLOL 100 MG TAB PO SCH ×2 (08:23→21:33)
[2016-05-09] MEDS: PREDNISOLONE/SULFACETAMIDE 5 ML OPH BOTH EYES SCH ×4 (08:24→23:38)
[2016-05-09] MEDS: COLLAGENASE 30 GM TUBE TOP SCH (08:30)
[2016-05-09 09:50] LABS: LYMPHOCYTES # 0.3 10^3/ul (0.8-2.9); NEUTROPHIL # 0.3 10^3/ul (1.6-7.5)
[2016-05-09 09:51] LABS: ANISOCYTOSIS 2+
[2016-05-09 09:52] LABS: PLATELET ESTIMATE PLT APPEAR DECREASED
--- NOTE | 2016-05-09 11:35 | CONS ---
Date/Time of Note Date/Time of Note DATE: 05/09/16 TIME: 11:34 Consult Date/Type/Reason Admit Date/Time Apr 10, 2016 at 16:55 Initial Consult Date 04/11/16 Type of Consultation: ID Ordering Provider: LAUREL ANDERSON Subjective alert, looks and feels good, no fevers, nad Objective Vital Signs Date Time Temp Pulse Resp B/P Pulse Ox O2 Delivery O2 Flow Rate FiO2 05/09/16 07:56 98.3 81 20 125/76 96 05/08/16 08:00 Room Air Intake and Output 05/08/16 05/08/16 05/09/16 15:00 23:00 07:00 Intake Total 150 ml 591.6 ml 950 ml Output Total 400 ml 1300 ml Balance 150 ml 191.6 ml -350 ml Results/Medications Result Diagram: 05/09/16 0422 05/09/16 0422 Results 24 hrs Laboratory Tests Test 05/08/16 12:27 05/08/16 17:36 05/08/16 21:14 05/09/16 04:22 Bedside Glucose 361 H 277 H 281 H Alanine Aminotransferase (ALT/SGPT) 31 Albumin 3.1 L Albumin/Globulin Ratio 0.86 Alkaline Phosphatase 101 Anion Gap 13 Anisocytosis 2+ Aspartate Amino Transf (AST/SGOT) 11 L Band Neutrophils % 6.0 H Basophils # 0.0 Basophils % 1.0 Blood Morphology Comment Blood Urea Nitrogen 17 Calcium Level 7.9 L Carbon Dioxide Level 29 Chloride Level 106 Creatinine 1.19 Differential Comment Direct Bilirubin 0.00 Eosinophils # 0.0 Eosinophils % 5.0 Globulin 3.60 H Glucose Level 170 Hematocrit 24.8 L Hemoglobin 8.3 L Indirect Bilirubin 0.3 Lymphocytes # 0.3 L Lymphocytes % 43.0 Magnesium Level 1.7 Mean Corpuscular Hemoglobin 30.2 Mean Corpuscular Hemoglobin Concent 33.4 Mean Corpuscular Volume 90.4 Mean Platelet Volume 9.0 Metamyelocytes # 0.0 Metamyelocytes % 1.0 H Monocytes # 0.0 L Monocytes % 2.0 Neutrophils # 0.3 L Neutrophils % 42.0 Nucleated Red Blood Cells # Platelet Count 41 #L Platelet Estimate PLT APPEAR DECREASED Potassium Level 3.3 L Red Blood Count 2.74 L Red Cell Distribution Width 21.7 H Sodium Level 145 H Total Bilirubin 0.3 Total Protein 6.7 White Blood Count 0.7 L Test 05/09/16 07:43 Bedside Glucose 139 Medications Current Medications Ondansetron HCl (Zofran Inj) 4 mg Q6H PRN IV NAUSEA AND/OR VOMITING Last administered on 04/30/16 05:51; Admin Dose 4 MG; Start 04/10/16 at 19:00 Nitroglycerin (Nitroglycerin (Sl Tab) 0.4 Mg) 1 tab Q5M PRN SL CHEST PAIN; Start 04/10/16 at 19:00 Acetaminophen (Tylenol Tab) 650 mg Q6H PRN PO PAIN LEVEL 1-3 OR FEVER Last administered on 05/05/16at 10:07; Admin Dose 650 MG; Start 04/10/16 at 19:00 Acetaminophen/ Hydrocodone Bitart ([place] (5/325)) 1 tab Q6H PRN PO PAIN LEVEL 4 -6 Last administered on 04/14/16at 23:25; Admin Dose 1 TAB; Start 04/10/16 at 19: 00 Acetaminophen/ Hydrocodone Bitart ([place] (5/325)) 2 tab Q6H PRN PO PAIN LEVEL 7 -10 Last administered on 05/08/16 22:05; Admin Dose 2 TAB; Start 04/10/16 at 19: 00 Morphine Sulfate (morphine) 2 mg Q4H PRN IV PAIN LEVEL 7-10 Last administered on 04/29/16at 20:57; Admin Dose 2 MG; Start 04/10/16 at 19:00 Magnesium Hydroxide (Milk Of Mag) 30 ml DAILY PRN PO CONSTIPATION Last administered on 04/21/16at 05:00; Admin Dose 30 ML; Start 04/10/16 at 19:00 Bisacodyl (Dulcolax Supp) 10 mg DAILY PRN [place] CONSTIPATION; Start 04/10/16 at 19 :00 Pantoprazole (Protonix Tab) 40 mg DAILY@06 PO Last administered on 05/09/16 06: 20; Admin Dose 40 MG; Start 04/11/16 at 06:00 Miscellaneous Information 1 ea NOTE XX ; Start 04/10/16 at 19:00 Glucose (Glutose) 15 gm Q15M PRN PO DECREASED GLUCOSE; Start 04/10/16 at 19:00 Glucose (Glutose) 22.5 gm Q15M PRN PO DECREASED GLUCOSE; Start 04/10/16 at 19: 00 Dextrose (D50w Syringe) 25 ml Q15M PRN IV DECREASED GLUCOSE; Start 04/10/16 at 19:00 Dextrose (D50w Syringe) 50 ml Q15M PRN IV DECREASED GLUCOSE; Start 04/10/16 at 19:00 Glucagon (Glucagen) 1 mg Q15M PRN IM DECREASED GLUCOSE; Start 04/10/16 at 19:00 Glucose (Glutose) 15 gm Q15M PRN BUCCAL DECREASED GLUCOSE; Start 04/10/16 at 19 :00 Metoprolol Tartrate (Lopressor) 100 mg BID PO Last administered on 05/09/16 08: 23; Admin Dose 100 MG; Start 04/11/16 at 09:00 Docusate Sodium (Colace) 100 mg Q12H PO Last administered on 05/09/16 06:20; Admin Dose 100 MG; Start 04/11/16 at 19:00 Polyethylene Glycol (Miralax) 17 gm DAILY PO Last administered on 05/09/16 08: 20; Admin Dose 17 GM; Start 04/11/16 at 13:00 Levofloxacin (Levaquin) 500 mg DAILY@06 PO Last administered on 05/09/16 06:20 ; Admin Dose 500 MG; Start 04/15/16 at 14:00 Collagenase (Santyl) 1 applic DAILY TOP Last administered on 05/09/16 08:30; Admin Dose 1 APPLIC; Start 04/17/16 at 16:00 Allopurinol (Zyloprim) 300 mg DAILY PO Last administered on 05/09/16 08:21; Admin Dose 300 MG; Start 04/18/16 at 09:30 IV Flush (NS 10 ml) 10 ml PRN PRN IV IV PROTOCOL Last administered on at 00:35; Admin Dose 10 ML; Start 04/18/16 at 11:30 Dexamethasone (Decadron) 10 mg Q4H PRN IV REACTION Last administered on at 16:58; Admin Dose 10 MG; Start 04/18/16 at 13:00 Diphenhydramine HCl 25 mg 25 mg Q4H PRN IV ALLERGIC REACTION Last administered on 04/24/16at 16:42; Admin Dose 25 MG; Start 04/18/16 at 13:00 Ondansetron HCl/ Sodium Chloride (Zofran Inj/NS) 54 ml @ 110 mls/hr Q8H PRN IV NAUSEA Last administered on 04/30/16at 09:51; Admin Dose 110 MLS/HR; Start 04/18/16 at 13:00 Amlodipine Besylate (Norvasc) 5 mg BID PO Last administered on 05/09/16 08:22; Admin Dose 5 MG; Start 04/21/16 at 21:00 Lisinopril (Zestril) 20 mg BID PO Last administered on 05/09/16 08:23; Admin Dose 20 MG; Start 04/21/16 at 21:00 Hydralazine HCl 10 mg 10 mg Q8H PRN IV ELEVATED BLOOD PRESSURE; Start at 12:00 Filgrastim/ Dextrose (Neupogen/D5W) 51.6 ml @ 103.2 mls/ hr DAILY@17 IVPB Last administered on 05/08/16 17:39; Admin Dose 103.2 MLS/HR; Start 04/25/16 at 17:00 Fluconazole (Diflucan) 100 mg DAILY PO Last administered on 05/09/16 08:20; Admin Dose 100 MG; Start 04/27/16 at 09:00 Acyclovir (Zovirax) 400 mg BID PO Last administered on 05/09/16 08:20; Admin Dose 400 MG; Start 04/26/16 at 11:45 Insulin Glargine (Lantus) 40 unit QHS SC Last administered on 05/08/16 22:05; Admin Dose 40 UNIT; Start 05/02/16 at 21:00 Prednisolone/ Sulfacetamide 2 drop 2 drop QID BOTH EYES Last administered on 08:24; Admin Dose 2 DROP; Start 05/02/16 at 17:00 Vancomycin HCl/ Sodium Chloride (Vancocin/NS) 150 ml @ 75 mls/hr Q12H IVPB Last administered on 05/08/16 23:09; Admin Dose 75 MLS/HR; Start 05/08/16 at 11: 00 Miscellaneous Information (*Rx Drug Level Order Reminder*) ONCE ONCE XX ; Start 05/09/16 at 22:00; Stop 05/09/16 at 22:01 Assessment/Plan Chief Complaint/Hosp Course ANTIMICROBIALS: 1. Vancomycin 2. Levaquin. 3. Diflucan 4. Acyclovir Indwellings: ZAK PICC 04/18/16 PHYSICAL EXAMINATION: GENERAL: Obese, well-developed, middle-aged man who is awake, in no distress. HEENT: Head atraumatic, normocephalic. Sclerae anicteric. Buccal mucosa pink. NECK: Supple. Trachea midline. LUNGS: Chest rise symmetrical. Breath sounds clear. HEART: S1, S2. ABDOMEN: Soft. Bowel tones present. EXTREMITIES: No cyanosis ASSESSMENT: 1. Neutropenia, s/p neutropenic fevers 2. 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 4. Diabetes. 5. Hypertension. 6. Legally blind. PLAN: Remains stable, continue abx, chemotherapy/Neupogen per oncology. [place] cx prn DW staff Problems: JUVENAL SANCHEZ NP May 09, 2016 11:35
[2016-05-09] MEDS: VANCOMYCIN 750 MG in SOD CHLORIDE 0.9% 150 ML IVPB SCH ×2 (11:39→23:38)
[2016-05-09] MEDS ORDERED: POTASSIUM CHLORIDE (SR) 20 MEQ TAB PO STA (13:00)
--- NOTE | 2016-05-09 13:13 | PN ---
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 HIV negative. Appreciate Hematology's assistance and ID recs On Neupogen per Heme, abx adjusted per ID, patient also on Acyclovir and Diflucan Hb and Plts in 40's today Still Neutropenic with WBC 0.7 but ANC better up to 336 today Tolerating po well and started PT. Dr Flannery/Dr Lucas following. 2. Right 1st and 2nd toe cellulitis/osteomyelitis on MRI. Neutropenic post chemo. JOSE J negative Blood cultures NGTD and wound cultures NGTD Wound care and Dr Thomas following patient. On Vanco, Levaquin, Diflucan and Acyclovir per ID 3. ? UTI, urine culture with Coag neg staph and tiffany but low CFU: currently on Vanco, Diflucan already, f/u ID recs 4. Blood cx with GPC, 1/2,? contaminant, repeat blood cx negative. On Vanco. ID following 5. Diabetes mellitus. A1c back at 7.2 ...Continue current insulin regimen, keeping off glyburide. On Tradjenta. Decreased Lantus back to 40 and premeal insulin to 6 due to episodes of mild hypoglycemia this AM Appreciate hand crocheter recommendations. Patient more compliant with ADA diet now. 6. Cardiomegaly, EF 50%. No further episodes of NSVT since yesterday. Continue Lopressor/Bblock Electrolytes stable again today. S/p negative JOSE J 7. Hypertension. Continue beta blockers, Norvasc and Lisinopril. Also on hydralazine prn. 8. Constipation, relieved: continue Miralax and Colace scheduled and add MOM along with Dulcolax prn. 9. 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 now on acyclovir so d/c Valacyclovir ...Will need Ophthalmology eval outpatient either way if not done prior Patient blind 10. Hypokalemia/Hypomagnesemia: replete and f/u labs in AM Prophylaxis. Proton pump inhibitors for GI prophylaxis and SCDs for DVT prophylaxis. DISPOSITION: Post Chemo. F/u wound care and follow up further ID and Podiatry recs. F/u counts, on Neupogen Will require SNF at discharge hopefully soon if ANC comes up?. Subjective 24 Hr Interval Summary Free Text/Dictation Patient doing well, sitting up, dressed and having lunch No complaints Tolerating po well today and ANC up to 300's Exam/Review of Systems Vital Signs Vitals Vital Signs Date Time Temp Pulse Resp B/P Pulse Ox O2 Delivery O2 Flow Rate FiO2 05/09/16 07:56 98.3 81 20 125/76 96 05/08/16 08:00 Room Air Intake and Output 05/08/16 05/08/16 05/09/16 15:00 23:00 07:00 Intake Total 150 ml 591.6 ml 950 ml Output Total 400 ml 1300 ml Balance 150 ml 191.6 ml -350 ml Exam Constitutional: alert, oriented, other (blind), well developed Respiratory: clear to auscultation, normal air movement Cardiovascular: nl pulses, regular rate and rhythm Gastrointestinal: non-tender, soft Musculoskeletal: other (Right foot with dressing in place but healing wounds) Extremities: normal pulses, other (no edema, clubbing or cyanosis ) 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: SEED YEAST OPERATOR II-XII intact (vero however ), nl mental status, nl speech, nl strength Results Result Diagram: 05/09/1642105/09/16 0422 Results 24 hrs Laboratory Tests Test 05/08/16 17:36 05/08/16 21:14 05/09/16 04:22 05/09/16 07:43 Bedside Glucose 277 H 281 H 139 Alanine Aminotransferase (ALT/SGPT) 31 Albumin 3.1 L Albumin/Globulin Ratio 0.86 Alkaline Phosphatase 101 Anion Gap 13 Anisocytosis 2+ Aspartate Amino Transf (AST/SGOT) 11 L Band Neutrophils % 6.0 H Basophils # 0.0 Basophils % 1.0 Blood Morphology Comment Blood Urea Nitrogen 17 Calcium Level 7.9 L Carbon Dioxide Level 29 Chloride Level 106 Creatinine 1.19 Differential Comment Direct Bilirubin 0.00 Eosinophils # 0.0 Eosinophils % 5.0 Globulin 3.60 H Glucose Level 170 Hematocrit 24.8 L Hemoglobin 8.3 L Indirect Bilirubin 0.3 Lymphocytes # 0.3 L Lymphocytes % 43.0 Magnesium Level 1.7 Mean Corpuscular Hemoglobin 30.2 Mean Corpuscular Hemoglobin Concent 33.4 Mean Corpuscular Volume 90.4 Mean Platelet Volume 9.0 Metamyelocytes # 0.0 Metamyelocytes % 1.0 H Monocytes # 0.0 L Monocytes % 2.0 Neutrophils # 0.3 L Neutrophils % 42.0 Nucleated Red Blood Cells # Platelet Count 41 #L Platelet Estimate PLT APPEAR DECREASED Potassium Level 3.3 L Red Blood Count 2.74 L Red Cell Distribution Width 21.7 H Sodium Level 145 H Total Bilirubin 0.3 Total Protein 6.7 White Blood Count 0.7 L Test 05/09/16 11:57 Bedside Glucose 164 Medications Medications Current Medications Ondansetron HCl (Zofran Inj) 4 mg Q6H PRN IV NAUSEA AND/OR VOMITING Last administered on 04/30/16 05:51; Admin Dose 4 MG; Start 04/10/16 at 19:00 Nitroglycerin (Nitroglycerin (Sl Tab) 0.4 Mg) 1 tab Q5M PRN SL CHEST PAIN; Start 04/10/16 at 19:00 Acetaminophen (Tylenol Tab) 650 mg Q6H PRN PO PAIN LEVEL 1-3 OR FEVER Last administered on 05/05/16at 10:07; Admin Dose 650 MG; Start 04/10/16 at 19:00 Acetaminophen/ Hydrocodone Bitart ([place] (5/325)) 1 tab Q6H PRN PO PAIN LEVEL 4 -6 Last administered on 04/14/16 23:25; Admin Dose 1 TAB; Start 04/10/16 at 19: 00 Acetaminophen/ Hydrocodone Bitart ([place] (5/325)) 2 tab Q6H PRN PO PAIN LEVEL 7 -10 Last administered on 05/08/16 22:05; Admin Dose 2 TAB; Start 04/10/16 at 19: 00 Morphine Sulfate (morphine) 2 mg Q4H PRN IV PAIN LEVEL 7-10 Last administered on 04/29/16at 20:57; Admin Dose 2 MG; Start 04/10/16 at 19:00 Magnesium Hydroxide (Milk Of Mag) 30 ml DAILY PRN PO CONSTIPATION Last administered on 04/21/16at 05:00; Admin Dose 30 ML; Start 04/10/16 at 19:00 Bisacodyl (Dulcolax Supp) 10 mg DAILY PRN [place] CONSTIPATION; Start 04/10/16 at 19 :00 Pantoprazole (Protonix Tab) 40 mg DAILY@06 PO Last administered on 05/09/16 06: 20; Admin Dose 40 MG; Start 04/11/16 at 06:00 Miscellaneous Information 1 ea NOTE XX ; Start 04/10/16 at 19:00 Glucose (Glutose) 15 gm Q15M PRN PO DECREASED GLUCOSE; Start 04/10/16 at 19:00 Glucose (Glutose) 22.5 gm Q15M PRN PO DECREASED GLUCOSE; Start 04/10/16 at 19: 00 Dextrose (D50w Syringe) 25 ml Q15M PRN IV DECREASED GLUCOSE; Start 04/10/16 at 19:00 Dextrose (D50w Syringe) 50 ml Q15M PRN IV DECREASED GLUCOSE; Start 04/10/16 at 19:00 Glucagon (Glucagen) 1 mg Q15M PRN IM DECREASED GLUCOSE; Start 04/10/16 at 19:00 Glucose (Glutose) 15 gm Q15M PRN BUCCAL DECREASED GLUCOSE; Start 04/10/16 at 19 :00 Metoprolol Tartrate (Lopressor) 100 mg BID PO Last administered on 05/09/16 08: 23; Admin Dose 100 MG; Start 04/11/16 at 09:00 Docusate Sodium (Colace) 100 mg Q12H PO Last administered on 05/09/16 06:20; Admin Dose 100 MG; Start 04/11/16 at 19:00 Polyethylene Glycol (Miralax) 17 gm DAILY PO Last administered on 05/09/16 08: 20; Admin Dose 17 GM; Start 04/11/16 at 13:00 Levofloxacin (Levaquin) 500 mg DAILY@06 PO Last administered on 05/09/16 06:20 ; Admin Dose 500 MG; Start 04/15/16 at 14:00 Collagenase (Santyl) 1 applic DAILY TOP Last administered on 05/09/16 08:30; Admin Dose 1 APPLIC; Start 04/17/16 at 16:00 Allopurinol (Zyloprim) 300 mg DAILY PO Last administered on 05/09/16 08:21; Admin Dose 300 MG; Start 04/18/16 at 09:30 IV Flush (NS 10 ml) 10 ml PRN PRN IV IV PROTOCOL Last administered on at 00:35; Admin Dose 10 ML; Start 04/18/16 at 11:30 Dexamethasone (Decadron) 10 mg Q4H PRN IV REACTION Last administered on at 16:58; Admin Dose 10 MG; Start 04/18/16 at 13:00 Diphenhydramine HCl 25 mg 25 mg Q4H PRN IV ALLERGIC REACTION Last administered on 04/24/16at 16:42; Admin Dose 25 MG; Start 04/18/16 at 13:00 Ondansetron HCl/ Sodium Chloride (Zofran Inj/NS) 54 ml @ 110 mls/hr Q8H PRN IV NAUSEA Last administered on 04/30/16 09:51; Admin Dose 110 MLS/HR; Start 04/18/16 at 13:00 Amlodipine Besylate (Norvasc) 5 mg BID PO Last administered on 05/09/16 08:22; Admin Dose 5 MG; Start 04/21/16 at 21:00 Lisinopril (Zestril) 20 mg BID PO Last administered on 05/09/16 08:23; Admin Dose 20 MG; Start 04/21/16 at 21:00 Hydralazine HCl 10 mg 10 mg Q8H PRN IV ELEVATED BLOOD PRESSURE; Start at 12:00 Filgrastim/ Dextrose (Neupogen/D5W) 51.6 ml @ 103.2 mls/ hr DAILY@17 IVPB Last administered on 05/08/16 17:39; Admin Dose 103.2 MLS/HR; Start 04/25/16 at 17:00 Fluconazole (Diflucan) 100 mg DAILY PO Last administered on 05/09/16 08:20; Admin Dose 100 MG; Start 04/27/16 at 09:00 Acyclovir (Zovirax) 400 mg BID PO Last administered on 05/09/16 08:20; Admin Dose 400 MG; Start 04/26/16 at 11:45 Insulin Glargine (Lantus) 40 unit QHS SC Last administered on 05/08/16 22:05; Admin Dose 40 UNIT; Start 05/02/16 at 21:00 Prednisolone/ Sulfacetamide 2 drop 2 drop QID BOTH EYES Last administered on 12:55; Admin Dose 2 DROP; Start 05/02/16 at 17:00 Vancomycin HCl/ Sodium Chloride (Vancocin/NS) 150 ml @ 75 mls/hr Q12H IVPB Last administered on 05/09/16 11:39; Admin Dose 75 MLS/HR; Start 05/08/16 at 11: 00 Miscellaneous Information ONCE ONCE XX ; Start 05/09/16 at 22:00; Stop 05/09/16 at 22:01 Magnesium Sulfate (Magnesium Sulfate 2 Gm/50 ml) 50 ml @ 25 mls/hr ONCE ONCE IVPB ; Start 05/09/16 at 14:00; Stop 05/09/16 at 15:59 LAUREL ANDERSON May 09, 2016 13:13
[2016-05-09] MEDS ORDERED: MAGNESIUM SULFATE 2 GM/50 ML 50 ML IVPB ONE (14:00)
--- NOTE | 2016-05-09 15:10 | CONS ---
Date/Time of Note Date/Time of Note DATE: 05/09/16 TIME: 15:06 Assessment/Plan Assessment/Plan Chief Complaint/Hosp Course 55-year-old gentleman with multiple medical problems including insulin dependant DM (not compliant), legal blindness at least for the past 6 months, hypertension, cardiomegaly with a chronic rt first and second toe infection, who initially presented with Left sided chest pain. Initial labs also revealed pancytopenia with a Hg 6.7 and platelets in 30's. 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 He was spiking fevers but is now afebrile. Problems: (1) Hairy cell leukemia Status: Acute Qualifiers: Leukemia Active/Remission status: without remission Qualified Code: C91.40 - Hairy cell leukemia not having achieved remission Additional Assessment/Plan -Pt is now s/p cladribine 0.14mg/kg/day continues IV infusion x 5 days (04/18/16 -04/23/16) + Rituxan (04/24/16). -continue antibiotics per ID for osteomyelitis. has 2 more weeks of antibiotics -neutropenia related to cladribine, continue to monitor. improving gradually. continue Neupogen for now -continue broad spectrum antibiotics for neutropenic fevers per ID. pt now afebrile -keep Hg > 8 and platelets > 10. no transfusion needed toda Labs not consistent with DIC. Vancomycin can sometimes cause thrombocytopenia but patient has been on vanc since 04/10, and was on zosyn but from 04/10 to . Will continue to monitor, transfuse if plt < 10 or bleeding. -Peripheral smear reviewed by path, with moderate anisocytosis, no blasts, no increased polychromasia so no evidence of hemolysis on 05/04 -pt will need a repeat bone marrow bx in 3-4 weeks. this can be done as an out patient Approximately 40 min were spent at patient's bedside and in coordination of his care Consultation Date/Type/Reason Admit Date/Time Apr 10, 2016 at 16:55 Initial Consult Date 04/11/16 Type of Consultation: Hematology Reason for Consultation hairy cell leukemia Referring Provider: LAUREL ANDERSON 24 HR Interval Summary Free Text/Dictation pt feels well. no fevers. continues on antibiotics Exam/Review of Systems Vital Signs Vitals Vital Signs Date Time Temp Pulse Resp B/P Pulse Ox O2 Delivery O2 Flow Rate FiO2 05/09/16 07:56 98.3 81 20 125/76 96 05/08/16 08:00 Room Air Intake and Output 05/08/16 05/08/16 05/09/16 15:00 23:00 07:00 Intake Total 150 ml 591.6 ml 950 ml Output Total 400 ml 1300 ml Balance 150 ml 191.6 ml -350 ml Exam Constitutional: alert, oriented Psych: no complaints Head: normocephalic Eyes: other (bilateral blindness) ENMT: nl external ears & nose, nl lips & teeth Neck: non-tender, supple Respiratory: clear to auscultation, normal air movement Cardiovascular: nl pulses, regular rate and rhythm Gastrointestinal: soft Musculoskeletal: nl extremities to inspection, nl gait and stance Extremities: normal pulses 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: SHAFT TENDER II-XII intact Results Result Diagram: 05/09/16 0422 05/09/16 0422 Results 24 hrs Laboratory Tests Test 05/08/16 17:36 05/08/16 21:14 05/09/16 04:22 05/09/16 07:43 Bedside Glucose 277 H 281 H 139 Alanine Aminotransferase (ALT/SGPT) 31 Albumin 3.1 L Albumin/Globulin Ratio 0.86 Alkaline Phosphatase 101 Anion Gap 13 Anisocytosis 2+ Aspartate Amino Transf (AST/SGOT) 11 L Band Neutrophils % 6.0 H Basophils # 0.0 Basophils % 1.0 Blood Morphology Comment Blood Urea Nitrogen 17 Calcium Level 7.9 L Carbon Dioxide Level 29 Chloride Level 106 Creatinine 1.19 Differential Comment Direct Bilirubin 0.00 Eosinophils # 0.0 Eosinophils % 5.0 Globulin 3.60 H Glucose Level 170 Hematocrit 24.8 L Hemoglobin 8.3 L Indirect Bilirubin 0.3 Lymphocytes # 0.3 L Lymphocytes % 43.0 Magnesium Level 1.7 Mean Corpuscular Hemoglobin 30.2 Mean Corpuscular Hemoglobin Concent 33.4 Mean Corpuscular Volume 90.4 Mean Platelet Volume 9.0 Metamyelocytes # 0.0 Metamyelocytes % 1.0 H Monocytes # 0.0 L Monocytes % 2.0 Neutrophils # 0.3 L Neutrophils % 42.0 Nucleated Red Blood Cells # Platelet Count 41 #L Platelet Estimate PLT APPEAR DECREASED Potassium Level 3.3 L Red Blood Count 2.74 L Red Cell Distribution Width 21.7 H Sodium Level 145 H Total Bilirubin 0.3 Total Protein 6.7 White Blood Count 0.7 L Test 05/09/16 11:57 Bedside Glucose 164 Medications Medications Current Medications Ondansetron HCl (Zofran Inj) 4 mg Q6H PRN IV NAUSEA AND/OR VOMITING Last administered on 04/30/16 05:51; Admin Dose 4 MG; Start 04/10/16 at 19:00 Nitroglycerin (Nitroglycerin (Sl Tab) 0.4 Mg) 1 tab Q5M PRN SL CHEST PAIN; Start 04/10/16 at 19:00 Acetaminophen (Tylenol Tab) 650 mg Q6H PRN PO PAIN LEVEL 1-3 OR FEVER Last administered on 05/05/16at 10:07; Admin Dose 650 MG; Start 04/10/16 at 19:00 Acetaminophen/ Hydrocodone Bitart ([place] (5/325)) 1 tab Q6H PRN PO PAIN LEVEL 4 -6 Last administered on 04/14/16at 23:25; Admin Dose 1 TAB; Start 04/10/16 at 19: 00 Acetaminophen/ Hydrocodone Bitart ([place] (5/325)) 2 tab Q6H PRN PO PAIN LEVEL 7 -10 Last administered on 05/08/16 22:05; Admin Dose 2 TAB; Start 04/10/16 at 19: 00 Morphine Sulfate (morphine) 2 mg Q4H PRN IV PAIN LEVEL 7-10 Last administered on 04/29/16at 20:57; Admin Dose 2 MG; Start 04/10/16 at 19:00 Magnesium Hydroxide (Milk Of Mag) 30 ml DAILY PRN PO CONSTIPATION Last administered on 04/21/16at 05:00; Admin Dose 30 ML; Start 04/10/16 at 19:00 Bisacodyl (Dulcolax Supp) 10 mg DAILY PRN [place] CONSTIPATION; Start 04/10/16 at 19 :00 Pantoprazole (Protonix Tab) 40 mg DAILY@06 PO Last administered on 05/09/16 06: 20; Admin Dose 40 MG; Start 04/11/16 at 06:00 Miscellaneous Information 1 ea NOTE XX ; Start 04/10/16 at 19:00 Glucose (Glutose) 15 gm Q15M PRN PO DECREASED GLUCOSE; Start 04/10/16 at 19:00 Glucose (Glutose) 22.5 gm Q15M PRN PO DECREASED GLUCOSE; Start 04/10/16 at 19: 00 Dextrose (D50w Syringe) 25 ml Q15M PRN IV DECREASED GLUCOSE; Start 04/10/16 at 19:00 Dextrose (D50w Syringe) 50 ml Q15M PRN IV DECREASED GLUCOSE; Start 04/10/16 at 19:00 Glucagon (Glucagen) 1 mg Q15M PRN IM DECREASED GLUCOSE; Start 04/10/16 at 19:00 Glucose (Glutose) 15 gm Q15M PRN BUCCAL DECREASED GLUCOSE; Start 04/10/16 at 19 :00 Metoprolol Tartrate (Lopressor) 100 mg BID PO Last administered on 05/09/16 08: 23; Admin Dose 100 MG; Start 04/11/16 at 09:00 Docusate Sodium (Colace) 100 mg Q12H PO Last administered on 05/09/16 06:20; Admin Dose 100 MG; Start 04/11/16 at 19:00 Polyethylene Glycol (Miralax) 17 gm DAILY PO Last administered on 05/09/16 08: 20; Admin Dose 17 GM; Start 04/11/16 at 13:00 Levofloxacin (Levaquin) 500 mg DAILY@06 PO Last administered on 05/09/16 06:20 ; Admin Dose 500 MG; Start 04/15/16 at 14:00 Collagenase (Santyl) 1 applic DAILY TOP Last administered on 05/09/16 08:30; Admin Dose 1 APPLIC; Start 04/17/16 at 16:00 Allopurinol (Zyloprim) 300 mg DAILY PO Last administered on 05/09/16 08:21; Admin Dose 300 MG; Start 04/18/16 at 09:30 IV Flush (NS 10 ml) 10 ml PRN PRN IV IV PROTOCOL Last administered on at 00:35; Admin Dose 10 ML; Start 04/18/16 at 11:30 Dexamethasone (Decadron) 10 mg Q4H PRN IV REACTION Last administered on at 16:58; Admin Dose 10 MG; Start 04/18/16 at 13:00 Diphenhydramine HCl 25 mg 25 mg Q4H PRN IV ALLERGIC REACTION Last administered on 04/24/16at 16:42; Admin Dose 25 MG; Start 04/18/16 at 13:00 Ondansetron HCl/ Sodium Chloride (Zofran Inj/NS) 54 ml @ 110 mls/hr Q8H PRN IV NAUSEA Last administered on 04/30/16at 09:51; Admin Dose 110 MLS/HR; Start 04/18/16 at 13:00 Amlodipine Besylate (Norvasc) 5 mg BID PO Last administered on 05/09/16 08:22; Admin Dose 5 MG; Start 04/21/16 at 21:00 Lisinopril (Zestril) 20 mg BID PO Last administered on 05/09/16 08:23; Admin Dose 20 MG; Start 04/21/16 at 21:00 Hydralazine HCl 10 mg 10 mg Q8H PRN IV ELEVATED BLOOD PRESSURE; Start at 12:00 Filgrastim/ Dextrose (Neupogen/D5W) 51.6 ml @ 103.2 mls/ hr DAILY@17 IVPB Last administered on 05/08/16 17:39; Admin Dose 103.2 MLS/HR; Start 04/25/16 at 17:00 Fluconazole (Diflucan) 100 mg DAILY PO Last administered on 05/09/16 08:20; Admin Dose 100 MG; Start 04/27/16 at 09:00 Acyclovir (Zovirax) 400 mg BID PO Last administered on 05/09/16 08:20; Admin Dose 400 MG; Start 04/26/16 at 11:45 Insulin Glargine (Lantus) 40 unit QHS SC Last administered on 05/08/16 22:05; Admin Dose 40 UNIT; Start 05/02/16 at 21:00 Prednisolone/ Sulfacetamide 2 drop 2 drop QID BOTH EYES Last administered on 12:55; Admin Dose 2 DROP; Start 05/02/16 at 17:00 Vancomycin HCl/ Sodium Chloride (Vancocin/NS) 150 ml @ 75 mls/hr Q12H IVPB Last administered on 05/09/16 11:39; Admin Dose 75 MLS/HR; Start 05/08/16 at 11: 00 Miscellaneous Information ONCE ONCE XX ; Start 05/09/16 at 22:00; Stop 05/09/16 at 22:01 Magnesium Sulfate (Magnesium Sulfate 2 Gm/50 ml) 50 ml @ 25 mls/hr ONCE ONCE IVPB Last administered on 05/09/16t 14:42; Admin Dose 25 MLS/HR; Start 05/09/16 at 14:00; Stop 05/09/16 at 15:59 TOY DWYER M.D. May 09, 2016 15:10
[2016-05-09] MEDS: FILGRASTIM IVPB SCH (16:49)
[2016-05-09] MEDS: DEXTROSE 5% IVPB SCH (16:49)
[2016-05-09 20:10] VITALS: BP 124/54; PULSE 58; RESP 17
[2016-05-09] MEDS: HYDROCODONE/APAP (5/325) TAB PO PRN (21:31)
[2016-05-09] MEDS: INSULIN GLARGINE [LANtus] 3 ML PEN SC SCH (22:04)
[2016-05-09 23:30] VITALS: BP 124/74
[2016-05-09 23:35] VITALS: BP 124/74; RESP 19
[2016-05-10 05:54] LABS: HEMATOCRIT 25.4 % (42.0-52.0); HEMOGLOBIN 8.4 g/dl (14.0-18.0); MEAN CORPUSCULAR HGB CONC 33.2 g/dl (32.0-37.0); MEAN CORPUSCULAR VOLUME 90.3 fl (82.0-101.0); MEAN PLATELET VOLUME 9.2 fl (7.4-10.4); PLATELET COUNT 40 10^3/UL (140-440); RED BLOOD COUNT 2.82 10^6/ul (4.70-6.10); RED CELL DISTRIBUTION WIDTH 21.2 % (11.5-14.5); UNCORRECTED WBC 1.1 10^3/ul (4.8-10.8); WHITE BLOOD COUNT 1.1 10^3/ul (4.8-10.8)
[2016-05-10] MEDS: DOCUSATE SODIUM 100 MG CAP PO SCH ×2 (06:05→18:19)
[2016-05-10] MEDS: LEVOFLOXACIN 500 MG TAB PO SCH (06:05)
[2016-05-10] MEDS: PANTOPRAZOLE (EC) 40 MG TAB PO SCH (06:05)
[2016-05-10 06:19] LABS: ALBUMIN 3.1 g/dl (3.3-4.9)
[2016-05-10 06:20] LABS: POTASSIUM 3.5 mmol/L (3.5-5.1); SUSPECT 1
[2016-05-10 06:21] LABS: CONDITION 1; LH ANALYZER COMMENTS 1
[2016-05-10 06:22] LABS: ALBUMIN/GLOBULIN RATIO 0.83; BILIRUBIN,INDIRECT 0.3 mg/dl (0-1.1); BILIRUBIN,TOTAL 0.3 mg/dl (0.2-1.3); CREATININE 1.08 mg/dl (0.61-1.24); TOTAL PROTEIN 6.8 g/dl (6.1-8.1)
[2016-05-10] MEDS: INSULIN ASPART [NOVOLOG] 3 ML PEN SC SCH ×7 (07:50→17:34)
[2016-05-10 08:12] VITALS: BP 126/79; RESP 16
[2016-05-10] MEDS: LISINOPRIL 20 MG TAB PO SCH ×2 (08:38→22:22)
[2016-05-10] MEDS: FLUCONAZOLE 100 MG TAB PO SCH (08:38)
[2016-05-10] MEDS: ACYCLOVIR 400 MG TAB PO SCH ×2 (08:38→22:21)
[2016-05-10] MEDS: ALLOPURINOL 300 MG TAB PO SCH (08:38)
[2016-05-10] MEDS: AMLODIPINE 5 MG TAB PO SCH ×2 (08:38→22:23)
[2016-05-10] MEDS: METOPROLOL 100 MG TAB PO SCH ×2 (08:39→22:22)
[2016-05-10] MEDS: PREDNISOLONE/SULFACETAMIDE 5 ML OPH BOTH EYES SCH ×4 (08:39→22:22)
[2016-05-10] MEDS: COLLAGENASE 30 GM TUBE TOP SCH (08:40)
[2016-05-10] MEDS: POLYETHYLENE GLYCOL 17 GM PACKET PO SCH (08:42)
[2016-05-10] MEDS ORDERED: POTASSIUM CHLORIDE (SR) 20 MEQ TAB PO STA (10:46)
[2016-05-10] MEDS: VANCOMYCIN 750 MG in SOD CHLORIDE 0.9% 150 ML IVPB SCH ×2 (10:58→23:00)
[2016-05-10] MEDS ORDERED: ALTEPLASE (CATHFLO) 2 MG INJ CATHETER ONE (11:30)
--- NOTE | 2016-05-10 11:38 | PN ---
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 HIV negative. Appreciate Hematology's assistance and ID recs On Neupogen per Heme, abx adjusted per ID, patient also on Acyclovir and Diflucan Hb stable and Plts remains in 40's today Still Neutropenic with WBC 1.1 but ANC better up to 336 today Tolerating po well and started PT. Continue Diflucan and Acyclovir until ANC >1500 after discussion with ID Dr Flannery/Dr Lucas following. 2. Right 1st and 2nd toe cellulitis/osteomyelitis on MRI. Neutropenic post chemo. JOSE J negative Blood cultures NGTD and wound cultures NGTD Wound care and Dr Thomas following patient. On Vanco, Levaquin for 2 more weeks daniel complete 6 weeks per ID 3. UTI, urine culture with Coag neg staph and tiffany but low CFU: currently on Vanco, Diflucan already, f/u ID recs 4. Blood cx with GPC, 1/2,? contaminant, repeat blood cx negative. On Vanco. ID following 5. Diabetes mellitus. A1c back at 7.2 ...Continue current insulin regimen, keeping off glyburide. On Tradjenta. Decreased Lantus back to 40 and premeal insulin to 6 due to episodes of mild hypoglycemia this AM Appreciate director graphics recommendations. Patient more compliant with ADA diet now. 6. Cardiomegaly, EF 50%. No further episodes of NSVT since yesterday. Continue Lopressor/Bblock Electrolytes stable again today. S/p negative JOSE J 7. Hypertension. Continue beta blockers, Norvasc and Lisinopril. Also on hydralazine prn. 8. Constipation, relieved: continue Miralax and Colace scheduled and add MOM along with Dulcolax prn. 9. 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 now on acyclovir so d/c Valacyclovir ...Will need Ophthalmology eval outpatient either way if not done prior Patient blind 10. Hypokalemia/Hypomagnesemia: replete and f/u labs in AM Prophylaxis. Proton pump inhibitors for GI prophylaxis and SCDs for DVT prophylaxis. DISPOSITION: Post Chemo. F/u wound care and follow up further ID and Podiatry recs. F/u counts, on Neupogen Will require SNF at discharge hopefully soon if ANC comes up?. Subjective 24 Hr Interval Summary Free Text/Dictation Patient remains stable and WBC up to 1.1 today ANC pending this AM Plan for SNF when bed available Exam/Review of Systems Vital Signs Vitals Vital Signs Date Time Temp Pulse Resp B/P Pulse Ox O2 Delivery O2 Flow Rate FiO2 05/10/16 08:12 98.1 68 16 126/79 99 05/09/16 20:10 Room Air Intake and Output 05/09/16 05/09/16 05/10/16 15:00 23:00 07:00 Intake Total 150 ml 1541.6 ml 1250 ml Output Total 1500 ml 1000 ml Balance 150 ml 41.6 ml 250 ml Exam Constitutional: alert, oriented, other (blind ), well developed Respiratory: clear to auscultation, normal air movement Cardiovascular: nl pulses, regular rate and rhythm Gastrointestinal: non-tender, soft Musculoskeletal: other (right foot wound improving and healing well ) Extremities: normal pulses, other (no edema, clubbing or cyanosis ) 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 (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 ), nl mental status, nl speech, nl strength Results Result Diagram: 05/10/16 0450 05/10/16 0450 Results 24 hrs Laboratory Tests Test 05/09/16 11:57 05/09/16 17:24 05/09/16 21:42 05/09/16 22:00 Bedside Glucose 164 121 141 Vancomycin Level Trough 13.5 Test 05/10/16 04:50 05/10/16 08:00 Alanine Aminotransferase (ALT/SGPT) 29 Albumin 3.1 L Albumin/Globulin Ratio 0.83 Alkaline Phosphatase 102 Anion Gap 13 Aspartate Amino Transf (AST/SGOT) 13 L Blood Morphology Comment Blood Urea Nitrogen 15 Calcium Level 8.0 L Carbon Dioxide Level 28 Chloride Level 107 Creatinine 1.08 Direct Bilirubin 0.00 Globulin 3.70 H Glucose Level 129 # Hematocrit 25.4 L Hemoglobin 8.4 L Indirect Bilirubin 0.3 Magnesium Level 2.0 Mean Corpuscular Hemoglobin 30.0 Mean Corpuscular Hemoglobin Concent 33.2 Mean Corpuscular Volume 90.3 Mean Platelet Volume 9.2 Platelet Count 40 L Potassium Level 3.5 Red Blood Count 2.82 L Red Cell Distribution Width 21.2 H Sodium Level 144 Total Bilirubin 0.3 Total Protein 6.8 White Blood Count 1.1 #L Bedside Glucose 136 Medications Medications Current Medications Ondansetron HCl (Zofran Inj) 4 mg Q6H PRN IV NAUSEA AND/OR VOMITING Last administered on 04/30/16 05:51; Admin Dose 4 MG; Start 04/10/16 at 19:00 Nitroglycerin (Nitroglycerin (Sl Tab) 0.4 Mg) 1 tab Q5M PRN SL CHEST PAIN; Start 04/10/16 at 19:00 Acetaminophen (Tylenol Tab) 650 mg Q6H PRN PO PAIN LEVEL 1-3 OR FEVER Last administered on 05/05/16 10:07; Admin Dose 650 MG; Start 04/10/16 at 19:00 Acetaminophen/ Hydrocodone Bitart ([place] (5/325)) 1 tab Q6H PRN PO PAIN LEVEL 4 -6 Last administered on 04/14/16 23:25; Admin Dose 1 TAB; Start 04/10/16 at 19: 00 Acetaminophen/ Hydrocodone Bitart ([place] (5/325)) 2 tab Q6H PRN PO PAIN LEVEL 7 -10 Last administered on 05/09/16 21:31; Admin Dose 2 TAB; Start 04/10/16 at 19: 00 Morphine Sulfate (morphine) 2 mg Q4H PRN IV PAIN LEVEL 7-10 Last administered on 04/29/16 20:57; Admin Dose 2 MG; Start 04/10/16 at 19:00 Magnesium Hydroxide (Milk Of Mag) 30 ml DAILY PRN PO CONSTIPATION Last administered on 04/21/16 05:00; Admin Dose 30 ML; Start 04/10/16 at 19:00 Bisacodyl (Dulcolax Supp) 10 mg DAILY PRN [place] CONSTIPATION; Start 04/10/16 at 19 :00 Pantoprazole (Protonix Tab) 40 mg DAILY@06 PO Last administered on 05/10/16 06: 05; Admin Dose 40 MG; Start 04/11/16 at 06:00 Miscellaneous Information 1 ea NOTE XX ; Start 04/10/16 at 19:00 Glucose (Glutose) 15 gm Q15M PRN PO DECREASED GLUCOSE; Start 04/10/16 at 19:00 Glucose (Glutose) 22.5 gm Q15M PRN PO DECREASED GLUCOSE; Start 04/10/16 at 19: 00 Dextrose (D50w Syringe) 25 ml Q15M PRN IV DECREASED GLUCOSE; Start 04/10/16 at 19:00 Dextrose (D50w Syringe) 50 ml Q15M PRN IV DECREASED GLUCOSE; Start 04/10/16 at 19:00 Glucagon (Glucagen) 1 mg Q15M PRN IM DECREASED GLUCOSE; Start 04/10/16 at 19:00 Glucose (Glutose) 15 gm Q15M PRN BUCCAL DECREASED GLUCOSE; Start 04/10/16 at 19 :00 Metoprolol Tartrate (Lopressor) 100 mg BID PO Last administered on 05/10/16 08: 39; Admin Dose 100 MG; Start 04/11/16 at 09:00 Docusate Sodium (Colace) 100 mg Q12H PO Last administered on 05/10/16 06:05; Admin Dose 100 MG; Start 04/11/16 at 19:00 Polyethylene Glycol (Miralax) 17 gm DAILY PO Last administered on 05/10/16 08: 42; Admin Dose 17 GM; Start 04/11/16 at 13:00 Levofloxacin (Levaquin) 500 mg DAILY@06 PO Last administered on 05/10/16 06:05 ; Admin Dose 500 MG; Start 04/15/16 at 14:00 Collagenase (Santyl) 1 applic DAILY TOP Last administered on 05/10/16 08:40; Admin Dose 1 APPLIC; Start 04/17/16 at 16:00 Allopurinol (Zyloprim) 300 mg DAILY PO Last administered on 05/10/16 08:38; Admin Dose 300 MG; Start 04/18/16 at 09:30 IV Flush (NS 10 ml) 10 ml PRN PRN IV IV PROTOCOL Last administered on at 00:35; Admin Dose 10 ML; Start 04/18/16 at 11:30 Dexamethasone (Decadron) 10 mg Q4H PRN IV REACTION Last administered on at 16:58; Admin Dose 10 MG; Start 04/18/16 at 13:00 Diphenhydramine HCl 25 mg 25 mg Q4H PRN IV ALLERGIC REACTION Last administered on 04/24/16at 16:42; Admin Dose 25 MG; Start 04/18/16 at 13:00 Ondansetron HCl/ Sodium Chloride (Zofran Inj/NS) 54 ml @ 110 mls/hr Q8H PRN IV NAUSEA Last administered on 04/30/16at 09:51; Admin Dose 110 MLS/HR; Start 04/18/16 at 13:00 Amlodipine Besylate (Norvasc) 5 mg BID PO Last administered on 05/10/16 08:38; Admin Dose 5 MG; Start 04/21/16 at 21:00 Lisinopril (Zestril) 20 mg BID PO Last administered on 05/10/16 08:38; Admin Dose 20 MG; Start 04/21/16 at 21:00 Hydralazine HCl 10 mg 10 mg Q8H PRN IV ELEVATED BLOOD PRESSURE; Start at 12:00 Filgrastim/ Dextrose (Neupogen/D5W) 51.6 ml @ 103.2 mls/ hr DAILY@17 IVPB Last administered on 05/09/16 16:49; Admin Dose 103.2 MLS/HR; Start 04/25/16 at 17:00 Fluconazole (Diflucan) 100 mg DAILY PO Last administered on 05/10/16 08:38; Admin Dose 100 MG; Start 04/27/16 at 09:00 Acyclovir (Zovirax) 400 mg BID PO Last administered on 05/10/16 08:38; Admin Dose 400 MG; Start 04/26/16 at 11:45 Insulin Glargine (Lantus) 40 unit QHS SC Last administered on 05/09/16 22:04; Admin Dose 40 UNIT; Start 05/02/16 at 21:00 Prednisolone/ Sulfacetamide 2 drop 2 drop QID BOTH EYES Last administered on 08:39; Admin Dose 2 DROP; Start 05/02/16 at 17:00 Vancomycin HCl/ Sodium Chloride (Vancocin/NS) 150 ml @ 75 mls/hr Q12H IVPB Last administered on 05/10/16 10:58; Admin Dose 75 MLS/HR; Start 05/08/16 at 11: 00 LAUREL ANDERSON May 10, 2016 11:24
[2016-05-10 12:01] LABS: LYMPHOCYTES # 0.7 10^3/ul (0.8-2.9); NEUTROPHIL # 0.4 10^3/ul (1.6-7.5)
[2016-05-10 12:02] LABS: ANISOCYTOSIS 2+; PLATELET ESTIMATE PLT APPEAR DECREASED
--- NOTE | 2016-05-10 12:02 | PN ---
DATE: 05/10/2016 SUBJECTIVE: No changes overnight, no fevers. The patient is alert, feels good. Denies pain, disco mfort. LABORATORY DATA: WBC today increased to 1.1, BUN 16, creatinine 1.08. Vancomycin trough on 017 was 13.5. INDWELLINGS: PICC line. ANTIMICROBIALS: 1. Vancomycin. 2. Acyclovir. 3. Fluconazole. 4. Levaquin. PHYSICAL EXAMINATION: GENERAL: Well-developed, middle-aged man who is alert, in no distress. HEENT: Head atraumatic, normocephalic. Sclerae anicteric. Buccal mucosa pink. NECK: Supple, trachea midline. CHEST: Rise symmetrical. Breath sounds clear. HEART: S1, S2. ABDOMEN: Soft, bowel tones present. EXTREMITIES: Without cyanosis. ASSESSMENT: 1. Right diabetics foot ulcer with osteomyelitis of the toe, completing antibiotics. 2. Status post neutropenic fevers. 3. Hairy cell leukemia, in chemotherapy. 4. Diabetes. 5. Hypertension. 6. Legally blind. PLAN: The patient remains stable, covered with appropriate antimicrobials. White blood cell count increasing. He is doing much better. We will continue him on current regimen to complete 6 weeks a ntibiotics for osteomyelitis. Dictated By: JUVENAL SNACHEZ OVEN TENDER [employer]AG[employer] for REJI BEDOYA/JOSE Conf#: [id number] DID#: [id number]
--- NOTE | 2016-05-10 12:54 | CONS ---
Date/Time of Note Date/Time of Note DATE: 05/10/16 TIME: 12:52 Assessment/Plan Assessment/Plan Chief Complaint/Hosp Course 55-year-old gentleman with multiple medical problems including insulin dependant DM (not compliant), legal blindness at least for the past 6 months, hypertension, cardiomegaly with a chronic rt first and second toe infection, who initially presented with Left sided chest pain. Initial labs also revealed pancytopenia with a Hg 6.7 and platelets in 30's. 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 Problems: (1) Hairy cell leukemia Status: Acute Qualifiers: Leukemia Active/Remission status: without remission Qualified Code: C91.40 - Hairy cell leukemia not having achieved remission Additional Assessment/Plan -Pt is now s/p cladribine 0.14mg/kg/day continues IV infusion x 5 days (04/18/16 -04/23/16) + Rituxan (04/24/16). -continue antibiotics per ID for osteomyelitis. has 2 more weeks of antibiotics -neutropenia related to cladribine, continue to monitor. continue Neupogen for now. ANC continues to improve -continue broad spectrum antibiotics for neutropenic fevers per ID. pt now afebrile -keep Hg > 8 and platelets > 10. no transfusion needed toda Labs not consistent with DIC. Vancomycin can sometimes cause thrombocytopenia but patient has been on vanc since 04/10, and was on zosyn but from 04/10 to . Will continue to monitor, transfuse if plt < 10 or bleeding. -Peripheral smear reviewed by path, with moderate anisocytosis, no blasts, no increased polychromasia so no evidence of hemolysis on 05/04 -pt will need a repeat bone marrow bx in 3-4 weeks. this can be done as an out patient Approximately 40 min were spent at patient's bedside and in coordination of his care Consultation Date/Type/Reason Admit Date/Time Apr 10, 2016 at 16:55 Initial Consult Date 04/11/16 Type of Consultation: Hematology Reason for Consultation hairy cell leukemia Referring Provider: LAUREL ANDERSON 24 HR Interval Summary Free Text/Dictation no acute overnight events Exam/Review of Systems Vital Signs Vitals Vital Signs Date Time Temp Pulse Resp B/P Pulse Ox O2 Delivery O2 Flow Rate FiO2 1/4/17 08:12 98.1 68 16 126/79 99 05/09/16 20:10 Room Air Intake and Output 05/09/16 05/09/16 05/10/16 14:59 22:59 06:59 Intake Total 150 ml 1541.6 ml 1250 ml Output Total 1500 ml 1000 ml Balance 150 ml 41.6 ml 250 ml Exam Constitutional: alert, oriented Psych: nl mood/affect, no complaints Head: normocephalic Eyes: nl conjunctiva, other (bilateral blindness) Neck: non-tender, supple Respiratory: clear to auscultation, normal air movement Cardiovascular: nl pulses, regular rate and rhythm Gastrointestinal: nl liver, spleen, soft Musculoskeletal: nl extremities to inspection, nl gait and stance Extremities: normal pulses Results Result Diagram: 05/10/16 0450 05/10/16 0450 Results 24 hrs Laboratory Tests Test 05/09/16 17:24 05/09/16 21:42 05/09/16 22:00 05/10/16 04:50 Bedside Glucose 121 141 Vancomycin Level Trough 13.5 Alanine Aminotransferase (ALT/SGPT) 29 Albumin 3.1 L Albumin/Globulin Ratio 0.83 Alkaline Phosphatase 102 Anion Gap 13 Anisocytosis 2+ Aspartate Amino Transf (AST/SGOT) 13 L Blood Morphology Comment Blood Urea Nitrogen 15 Calcium Level 8.0 L Carbon Dioxide Level 28 Chloride Level 107 Creatinine 1.08 Differential Comment MANUAL DIFF Dimorphic Red Blood Cells RARE Direct Bilirubin 0.00 Eosinophils # 0.0 Eosinophils % 2.0 Globulin 3.70 H Glucose Level 129 # Hematocrit 25.4 L Hemoglobin 8.4 L Indirect Bilirubin 0.3 Lymphocytes # 0.7 L Lymphocytes % 60.0 H Magnesium Level 2.0 Mean Corpuscular Hemoglobin 30.0 Mean Corpuscular Hemoglobin Concent 33.2 Mean Corpuscular Volume 90.3 Mean Platelet Volume 9.2 Monocytes # 0.0 L Monocytes % 3.0 Neutrophils # 0.4 L Neutrophils % 35.0 L Platelet Count 40 L Platelet Estimate PLT APPEAR DECREASED Potassium Level 3.5 Red Blood Count 2.82 L Red Cell Distribution Width 21.2 H Sodium Level 144 Total Bilirubin 0.3 Total Protein 6.8 White Blood Count 1.1 #L Test 05/10/16 08:00 05/10/16 12:05 Bedside Glucose 136 174 Medications Medications Current Medications Ondansetron HCl (Zofran Inj) 4 mg Q6H PRN IV NAUSEA AND/OR VOMITING Last administered on 04/30/16 05:51; Admin Dose 4 MG; Start 04/10/16 at 19:00 Nitroglycerin (Nitroglycerin (Sl Tab) 0.4 Mg) 1 tab Q5M PRN SL CHEST PAIN; Start 04/10/16 at 19:00 Acetaminophen (Tylenol Tab) 650 mg Q6H PRN PO PAIN LEVEL 1-3 OR FEVER Last administered on 05/05/16 10:07; Admin Dose 650 MG; Start 04/10/16 at 19:00 Acetaminophen/ Hydrocodone Bitart ([place] (5/325)) 1 tab Q6H PRN PO PAIN LEVEL 4 -6 Last administered on 04/14/16 23:25; Admin Dose 1 TAB; Start 04/10/16 at 19: 00 Acetaminophen/ Hydrocodone Bitart ([place] (5/325)) 2 tab Q6H PRN PO PAIN LEVEL 7 -10 Last administered on 05/09/16 21:31; Admin Dose 2 TAB; Start 04/10/16 at 19: 00 Morphine Sulfate (morphine) 2 mg Q4H PRN IV PAIN LEVEL 7-10 Last administered on 04/29/16at 20:57; Admin Dose 2 MG; Start 04/10/16 at 19:00 Magnesium Hydroxide (Milk Of Mag) 30 ml DAILY PRN PO CONSTIPATION Last administered on 04/21/16at 05:00; Admin Dose 30 ML; Start 04/10/16 at 19:00 Bisacodyl (Dulcolax Supp) 10 mg DAILY PRN [place] CONSTIPATION; Start 04/10/16 at 19 :00 Pantoprazole (Protonix Tab) 40 mg DAILY@06 PO Last administered on 05/10/16 06: 05; Admin Dose 40 MG; Start 04/11/16 at 06:00 Miscellaneous Information 1 ea NOTE XX ; Start 04/10/16 at 19:00 Glucose (Glutose) 15 gm Q15M PRN PO DECREASED GLUCOSE; Start 04/10/16 at 19:00 Glucose (Glutose) 22.5 gm Q15M PRN PO DECREASED GLUCOSE; Start 04/10/16 at 19: 00 Dextrose (D50w Syringe) 25 ml Q15M PRN IV DECREASED GLUCOSE; Start 04/10/16 at 19:00 Dextrose (D50w Syringe) 50 ml Q15M PRN IV DECREASED GLUCOSE; Start 04/10/16 at 19:00 Glucagon (Glucagen) 1 mg Q15M PRN IM DECREASED GLUCOSE; Start 04/10/16 at 19:00 Glucose (Glutose) 15 gm Q15M PRN BUCCAL DECREASED GLUCOSE; Start 04/10/16 at 19 :00 Metoprolol Tartrate (Lopressor) 100 mg BID PO Last administered on 05/10/16 08: 39; Admin Dose 100 MG; Start 04/11/16 at 09:00 Docusate Sodium (Colace) 100 mg Q12H PO Last administered on 05/10/16 06:05; Admin Dose 100 MG; Start 04/11/16 at 19:00 Polyethylene Glycol (Miralax) 17 gm DAILY PO Last administered on 05/10/16 08: 42; Admin Dose 17 GM; Start 04/11/16 at 13:00 Levofloxacin (Levaquin) 500 mg DAILY@06 PO Last administered on 05/10/16 06:05 ; Admin Dose 500 MG; Start 04/15/16 at 14:00 Collagenase (Santyl) 1 applic DAILY TOP Last administered on 05/10/16 08:40; Admin Dose 1 APPLIC; Start 04/17/16 at 16:00 Allopurinol (Zyloprim) 300 mg DAILY PO Last administered on 05/10/16 08:38; Admin Dose 300 MG; Start 04/18/16 at 09:30 IV Flush (NS 10 ml) 10 ml PRN PRN IV IV PROTOCOL Last administered on at 00:35; Admin Dose 10 ML; Start 04/18/16 at 11:30 Dexamethasone (Decadron) 10 mg Q4H PRN IV REACTION Last administered on at 16:58; Admin Dose 10 MG; Start 04/18/16 at 13:00 Diphenhydramine HCl 25 mg 25 mg Q4H PRN IV ALLERGIC REACTION Last administered on 04/24/16 16:42; Admin Dose 25 MG; Start 04/18/16 at 13:00 Ondansetron HCl/ Sodium Chloride (Zofran Inj/NS) 54 ml @ 110 mls/hr Q8H PRN IV NAUSEA Last administered on 12/25/16at 09:51; Admin Dose 110 MLS/HR; Start 04/18/16 at 13:00 Amlodipine Besylate (Norvasc) 5 mg BID PO Last administered on 05/10/16 08:38; Admin Dose 5 MG; Start 04/21/16 at 21:00 Lisinopril (Zestril) 20 mg BID PO Last administered on 05/10/16 08:38; Admin Dose 20 MG; Start 04/21/16 at 21:00 Hydralazine HCl 10 mg 10 mg Q8H PRN IV ELEVATED BLOOD PRESSURE; Start at 12:00 Filgrastim/ Dextrose (Neupogen/D5W) 51.6 ml @ 103.2 mls/ hr DAILY@17 IVPB Last administered on 05/09/16 16:49; Admin Dose 103.2 MLS/HR; Start 04/25/16 at 17:00 Fluconazole (Diflucan) 100 mg DAILY PO Last administered on 05/10/16 08:38; Admin Dose 100 MG; Start 04/27/16 at 09:00 Acyclovir (Zovirax) 400 mg BID PO Last administered on 05/10/16 08:38; Admin Dose 400 MG; Start 04/26/16 at 11:45 Insulin Glargine (Lantus) 40 unit QHS SC Last administered on 05/09/16 22:04; Admin Dose 40 UNIT; Start 05/02/16 at 21:00 Prednisolone/ Sulfacetamide 2 drop 2 drop QID BOTH EYES Last administered on 08:39; Admin Dose 2 DROP; Start 05/02/16 at 17:00 Vancomycin HCl/ Sodium Chloride (Vancocin/NS) 150 ml @ 75 mls/hr Q12H IVPB Last administered on 05/10/16 10:58; Admin Dose 75 MLS/HR; Start 05/08/16 at 11: 00 TOY DWYER M.D. May 10, 2016 12:54
[2016-05-10] MEDS: DEXTROSE 5% IVPB SCH (17:27)
[2016-05-10] MEDS: FILGRASTIM IVPB SCH (17:27)
[2016-05-10 21:22] VITALS: BP 119/74; RESP 21
[2016-05-10] MEDS: HYDROCODONE/APAP (5/325) TAB PO PRN (22:21)
[2016-05-10] MEDS: INSULIN GLARGINE [LANtus] 3 ML PEN SC SCH (22:28)
[2016-05-11 05:53] LABS: HEMATOCRIT 24.5 % (42.0-52.0); HEMOGLOBIN 8.2 g/dl (14.0-18.0); MEAN CORPUSCULAR HEMOGLOBIN 30.4 pg (29.0-33.0); MEAN CORPUSCULAR HGB CONC 33.5 g/dl (32.0-37.0); MEAN CORPUSCULAR VOLUME 90.5 fl (82.0-101.0); MEAN PLATELET VOLUME 9.4 fl (7.4-10.4); PLATELET COUNT 53 10^3/UL (140-440); RED BLOOD COUNT 2.71 10^6/ul (4.70-6.10); RED CELL DISTRIBUTION WIDTH 21.5 % (11.5-14.5); UNCORRECTED WBC 1.3 10^3/ul (4.8-10.8); WHITE BLOOD COUNT 1.3 10^3/ul (4.8-10.8)
[2016-05-11 06:15] LABS: ALBUMIN 3.1 g/dl (3.3-4.9)
[2016-05-11 06:16] LABS: POTASSIUM 3.3 mmol/L (3.5-5.1)
[2016-05-11 06:18] LABS: ALBUMIN/GLOBULIN RATIO 0.86; BILIRUBIN,INDIRECT 0.4 mg/dl (0-1.1); BILIRUBIN,TOTAL 0.4 mg/dl (0.2-1.3); CREATININE 1.14 mg/dl (0.61-1.24); TOTAL PROTEIN 6.7 g/dl (6.1-8.1)
[2016-05-11 06:19] LABS: CALCIUM 7.9 mg/dl (8.4-10.2)
[2016-05-11 06:21] LABS: CONDITION 1; LH ANALYZER COMMENTS 1
[2016-05-11] MEDS: DOCUSATE SODIUM 100 MG CAP PO SCH ×2 (07:00→09:53)
[2016-05-11] MEDS: LEVOFLOXACIN 500 MG TAB PO SCH (07:09)
[2016-05-11] MEDS: PANTOPRAZOLE (EC) 40 MG TAB PO SCH (07:09)
[2016-05-11 07:50] VITALS: BP 132/80; RESP 15
[2016-05-11] MEDS: INSULIN ASPART [NOVOLOG] 3 ML PEN SC SCH ×6 (07:50→17:00)
[2016-05-11] MEDS: FLUCONAZOLE 100 MG TAB PO SCH (09:53)
[2016-05-11] MEDS: METOPROLOL 100 MG TAB PO SCH ×2 (09:54→21:00)
[2016-05-11] MEDS: ACYCLOVIR 400 MG TAB PO SCH ×2 (09:54→21:32)
[2016-05-11] MEDS: LISINOPRIL 20 MG TAB PO SCH ×2 (09:54→21:00)
[2016-05-11] MEDS: ALLOPURINOL 300 MG TAB PO SCH (09:54)
[2016-05-11] MEDS: AMLODIPINE 5 MG TAB PO SCH ×2 (09:55→21:00)
[2016-05-11] MEDS: POLYETHYLENE GLYCOL 17 GM PACKET PO SCH (09:55)
[2016-05-11] MEDS: PREDNISOLONE/SULFACETAMIDE 5 ML OPH BOTH EYES SCH ×4 (09:55→21:31)
[2016-05-11] MEDS: HYDROCODONE/APAP (5/325) TAB PO PRN ×2 (09:57→21:32)
[2016-05-11 10:02] LABS: ANISOCYTOSIS 2+; LYMPHOCYTES # 0.5 10^3/ul (0.8-2.9); MONOCYTE # 0.1 10^3/ul (0.3-0.9); NEUTROPHIL # 0.7 10^3/ul (1.6-7.5); PLATELET ESTIMATE PLT APPEAR DECREASED
--- NOTE | 2016-05-11 10:44 | PN ---
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 HIV negative. Appreciate Hematology's assistance and ID recs On Neupogen per Heme, abx adjusted per ID, patient also on Acyclovir and Diflucan Hb stable and Plts in 50's today Resolving Neutropenia with WBC up to 1.3 and ANC better up to 702 today Tolerating po well and PT. Continue Diflucan and Acyclovir until ANC >1500 after discussion with ID Dr Flannery/Dr Lucas following. 2. Right 1st and 2nd toe cellulitis/osteomyelitis on MRI. Neutropenic post chemo. JOSE J negative Blood cultures NGTD and wound cultures NGTD Wound care and Dr Thomas following patient. On Vanco, Levaquin for 2 more weeks to complete 6 weeks per ID 3. UTI, urine culture with Coag neg staph and tiffany but low CFU: currently on Vanco, Diflucan. 4. Blood cx with GPC, 1/2,? contaminant, repeat blood cx negative. On Vanco. ID following 5. Diabetes mellitus. A1c back at 7.2 ...Continue current insulin regimen, keeping off glyburide. On Tradjenta. Decreased Lantus back to 40 and premeal insulin to 6 due to episodes of mild hypoglycemia. Appreciate percussion instructor recommendations. Patient more compliant with ADA diet now. 6. Cardiomegaly, EF 50%. No further episodes of NSVT since yesterday. Continue Lopressor/Bblock Electrolytes stable again today. S/p negative JOSE J 7. Hypertension. Continue beta blockers, Norvasc and Lisinopril. Also on hydralazine prn. 8. Constipation, relieved: continue Miralax and Colace scheduled and add MOM along with Dulcolax prn. 9. 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 now on acyclovir so d/c Valacyclovir ...Will need Ophthalmology eval outpatient either way if not done prior Patient blind 10. Hypokalemia/Hypomagnesemia: replete K and f/u labs in AM Prophylaxis. Proton pump inhibitors for GI prophylaxis and SCDs for DVT prophylaxis. DISPOSITION: Post Chemo. F/u wound care and follow up further ID and Podiatry recs. F/u counts, on Neupogen and needs to go to SNF at discharge hopefully within 24 to 48 hrs if bed available. If ANC stays up, will d/c Neutropenic precautions by tomorrow . Subjective 24 Hr Interval Summary Free Text/Dictation No Complaints, doing well and awaiting for placement to SNF Exam/Review of Systems Vital Signs Vitals Vital Signs Date Time Temp Pulse Resp B/P Pulse Ox O2 Delivery O2 Flow Rate FiO2 05/11/16 07:50 97.8 82 15 132/80 98 05/10/16 20:10 Room Air Intake and Output 05/10/16 05/10/16 05/11/16 15:00 23:00 07:00 Intake Total 150 ml 3411.6 ml 500 ml Output Total 1700 ml 1000 ml Balance 150 ml 1711.6 ml -500 ml Exam Constitutional: alert, oriented, other (blind ), well developed Respiratory: clear to auscultation, normal air movement Cardiovascular: nl pulses, regular rate and rhythm Gastrointestinal: non-tender, soft Musculoskeletal: other (right foot with dressing but wound has been healing well now ) Extremities: normal pulses 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: ASSET PROTECTION AGENT II-XII intact (blind), nl mental status, nl speech, nl strength Results Result Diagram: 05/11/16 0515 05/11/16 0515 Results 24 hrs Laboratory Tests Test 05/10/16 12:05 05/10/16 17:25 05/10/16 22:25 05/11/16 05:15 Bedside Glucose 174 153 209 Alanine Aminotransferase (ALT/SGPT) 23 Albumin 3.1 L Albumin/Globulin Ratio 0.86 Alkaline Phosphatase 100 Anion Gap 14 Anisocytosis 2+ Aspartate Amino Transf (AST/SGOT) 10 L Band Neutrophils % 4.0 Blood Morphology Comment Blood Urea Nitrogen 15 Calcium Level 7.9 L Carbon Dioxide Level 28 Chloride Level 106 Creatinine 1.14 Differential Comment Direct Bilirubin 0.00 Eosinophils # 0.0 Eosinophils % 1.0 Globulin 3.60 H Glucose Level 121 Hematocrit 24.5 L Hemoglobin 8.2 L Indirect Bilirubin 0.4 Lymphocytes # 0.5 L Lymphocytes % 41.0 Mean Corpuscular Hemoglobin 30.4 Mean Corpuscular Hemoglobin Concent 33.5 Mean Corpuscular Volume 90.5 Mean Platelet Volume 9.4 Monocytes # 0.1 L Monocytes % 4.0 Neutrophils # 0.7 L Neutrophils % 50.0 Nucleated Red Blood Cells % 1.0 H Platelet Count 53 #L Platelet Estimate PLT APPEAR DECREASED Potassium Level 3.3 L Red Blood Count 2.71 L Red Cell Distribution Width 21.5 H Sodium Level 145 H Total Bilirubin 0.4 Total Protein 6.7 White Blood Count 1.3 L Test 05/11/16 08:15 Bedside Glucose 101 Medications Medications Current Medications Ondansetron HCl (Zofran Inj) 4 mg Q6H PRN IV NAUSEA AND/OR VOMITING Last administered on 04/30/16 05:51; Admin Dose 4 MG; Start 04/10/16 at 19:00 Nitroglycerin (Nitroglycerin (Sl Tab) 0.4 Mg) 1 tab Q5M PRN SL CHEST PAIN; Start 04/10/16 at 19:00 Acetaminophen (Tylenol Tab) 650 mg Q6H PRN PO PAIN LEVEL 1-3 OR FEVER Last administered on 05/05/16 10:07; Admin Dose 650 MG; Start 04/10/16 at 19:00 Acetaminophen/ Hydrocodone Bitart ([place] (5/325)) 1 tab Q6H PRN PO PAIN LEVEL 4 -6 Last administered on 04/14/16 23:25; Admin Dose 1 TAB; Start 04/10/16 at 19: 00 Acetaminophen/ Hydrocodone Bitart ([place] (5/325)) 2 tab Q6H PRN PO PAIN LEVEL 7 -10 Last administered on 05/11/16 09:57; Admin Dose 2 TAB; Start 04/10/16 at 19: 00 Morphine Sulfate (morphine) 2 mg Q4H PRN IV PAIN LEVEL 7-10 Last administered on 04/29/16 20:57; Admin Dose 2 MG; Start 04/10/16 at 19:00 Magnesium Hydroxide (Milk Of Mag) 30 ml DAILY PRN PO CONSTIPATION Last administered on 04/21/16 05:00; Admin Dose 30 ML; Start 04/10/16 at 19:00 Bisacodyl (Dulcolax Supp) 10 mg DAILY PRN [place] CONSTIPATION; Start 04/10/16 at 19 :00 Pantoprazole (Protonix Tab) 40 mg DAILY@06 PO Last administered on 05/11/16 07: 09; Admin Dose 40 MG; Start 04/11/16 at 06:00 Miscellaneous Information 1 ea NOTE XX ; Start 04/10/16 at 19:00 Glucose (Glutose) 15 gm Q15M PRN PO DECREASED GLUCOSE; Start 04/10/16 at 19:00 Glucose (Glutose) 22.5 gm Q15M PRN PO DECREASED GLUCOSE; Start 04/10/16 at 19: 00 Dextrose (D50w Syringe) 25 ml Q15M PRN IV DECREASED GLUCOSE; Start 04/10/16 at 19:00 Dextrose (D50w Syringe) 50 ml Q15M PRN IV DECREASED GLUCOSE; Start 04/10/16 at 19:00 Glucagon (Glucagen) 1 mg Q15M PRN IM DECREASED GLUCOSE; Start 04/10/16 at 19:00 Glucose (Glutose) 15 gm Q15M PRN BUCCAL DECREASED GLUCOSE; Start 04/10/16 at 19 :00 Metoprolol Tartrate (Lopressor) 100 mg BID PO Last administered on 05/11/16 09: 54; Admin Dose 100 MG; Start 04/11/16 at 09:00 Docusate Sodium (Colace) 100 mg Q12H PO Last administered on 05/11/16 09:53; Admin Dose 100 MG; Start 04/11/16 at 19:00 Polyethylene Glycol (Miralax) 17 gm DAILY PO Last administered on 05/11/16 09: 55; Admin Dose 17 GM; Start 04/11/16 at 13:00 Levofloxacin (Levaquin) 500 mg DAILY@06 PO Last administered on 05/11/16 07:09 ; Admin Dose 500 MG; Start 04/15/16 at 14:00 Collagenase (Santyl) 1 applic DAILY TOP Last administered on 05/10/16 08:40; Admin Dose 1 APPLIC; Start 04/17/16 at 16:00 Allopurinol (Zyloprim) 300 mg DAILY PO Last administered on 05/11/16 09:54; Admin Dose 300 MG; Start 04/18/16 at 09:30 IV Flush (NS 10 ml) 10 ml PRN PRN IV IV PROTOCOL Last administered on at 00:35; Admin Dose 10 ML; Start 04/18/16 at 11:30 Dexamethasone (Decadron) 10 mg Q4H PRN IV REACTION Last administered on 16:58; Admin Dose 10 MG; Start 04/18/16 at 13:00 Diphenhydramine HCl 25 mg 25 mg Q4H PRN IV ALLERGIC REACTION Last administered on 04/24/16 16:42; Admin Dose 25 MG; Start 04/18/16 at 13:00 Ondansetron HCl/ Sodium Chloride (Zofran Inj/NS) 54 ml @ 110 mls/hr Q8H PRN IV NAUSEA Last administered on 04/30/16 09:51; Admin Dose 110 MLS/HR; Start 04/18/16 at 13:00 Amlodipine Besylate (Norvasc) 5 mg BID PO Last administered on 05/11/16 09:55; Admin Dose 5 MG; Start 04/21/16 at 21:00 Lisinopril (Zestril) 20 mg BID PO Last administered on 05/11/16 09:54; Admin Dose 20 MG; Start 04/21/16 at 21:00 Hydralazine HCl 10 mg 10 mg Q8H PRN IV ELEVATED BLOOD PRESSURE; Start at 12:00 Filgrastim/ Dextrose (Neupogen/D5W) 51.6 ml @ 103.2 mls/ hr DAILY@17 IVPB Last administered on 05/10/16 17:27; Admin Dose 103.2 MLS/HR; Start 04/25/16 at 17:00 Fluconazole (Diflucan) 100 mg DAILY PO Last administered on 05/11/16 09:53; Admin Dose 100 MG; Start 04/27/16 at 09:00 Acyclovir (Zovirax) 400 mg BID PO Last administered on 05/11/16 09:54; Admin Dose 400 MG; Start 04/26/16 at 11:45 Insulin Glargine (Lantus) 40 unit QHS SC Last administered on 05/10/16 22:28; Admin Dose 40 UNIT; Start 05/02/16 at 21:00 Prednisolone/ Sulfacetamide 2 drop 2 drop QID BOTH EYES Last administered on 09:55; Admin Dose 2 DROP; Start 05/02/16 at 17:00 Vancomycin HCl/ Sodium Chloride (Vancocin/NS) 150 ml @ 75 mls/hr Q12H IVPB Last administered on 05/10/16t 23:00; Admin Dose 75 MLS/HR; Start 05/08/16 at 11: 00 Potassium Chloride (Klor-Con 20) 40 meq Q4H PO ; Start 05/11/16 at 11:00; Status UNV LAUREL ANDERSON May 11, 2016 10:44
--- NOTE | 2016-05-11 11:11 | CONS ---
Date/Time of Note Date/Time of Note DATE: 05/11/16 TIME: 11:02 Assessment/Plan Assessment/Plan Chief Complaint/Hosp Course 55-year-old gentleman with multiple medical problems including insulin dependant DM (not compliant), legal blindness at least for the past 6 months, hypertension, cardiomegaly with a chronic rt first and second toe infection, who initially presented with Left sided chest pain. Initial labs also revealed pancytopenia with a Hg 6.7 and platelets in 30's. 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 pancytopenia continues to improve. Problems: Additional Assessment/Plan -Pt is now s/p cladribine 0.14mg/kg/day continues IV infusion x 5 days (04/18/16 -04/23/16) + Rituxan (04/24/16). -continue antibiotics per ID for osteomyelitis. has 2 more weeks of antibiotics -neutropenia related to cladribine, continue to monitor. continue Neupogen for now. ANC continues to improve -continue broad spectrum antibiotics for neutropenic fevers per ID. pt now afebrile -keep Hg > 8 and platelets > 10. no transfusion needed toda Labs not consistent with DIC. Vancomycin can sometimes cause thrombocytopenia but patient has been on vanc since 04/10, and was on zosyn but from 04/10 to . Will continue to monitor, transfuse if plt < 10 or bleeding. -Peripheral smear reviewed by path, with moderate anisocytosis, no blasts, no increased polychromasia so no evidence of hemolysis on 05/04 -pt will need a repeat bone marrow bx in 3-4 weeks. this can be done as an out patient Approximately 40 min were spent at patient's bedside and in coordination of his care Consultation Date/Type/Reason Admit Date/Time Apr 10, 2016 at 16:55 Initial Consult Date 04/11/16 Type of Consultation: Hematology Reason for Consultation hairy cell leukemia Referring Provider: LAUREL ANDERSON 24 HR Interval Summary Free Text/Dictation doing well. no fevers Exam/Review of Systems Vital Signs Vitals Vital Signs Date Time Temp Pulse Resp B/P Pulse Ox O2 Delivery O2 Flow Rate FiO2 05/11/16 07:50 97.8 82 15 132/80 98 05/10/16 20:10 Room Air Intake and Output 05/10/16 05/10/16 05/11/16 15:00 23:00 07:00 Intake Total 150 ml 3411.6 ml 500 ml Output Total 1700 ml 1000 ml Balance 150 ml 1711.6 ml -500 ml Exam Constitutional: alert, oriented Psych: no complaints Head: atraumatic, normocephalic Eyes: nl conjunctiva ENMT: nl external ears & nose Neck: non-tender, supple Respiratory: clear to auscultation, normal air movement Cardiovascular: nl pulses, regular rate and rhythm Gastrointestinal: soft Musculoskeletal: nl extremities to inspection, nl gait and stance Extremities: normal pulses Results Result Diagram: 05/11/16 0515 05/11/16 0515 Results 24 hrs Laboratory Tests Test 05/10/16 12:05 05/10/16 17:25 05/10/16 22:25 05/11/16 05:15 Bedside Glucose 174 153 209 Alanine Aminotransferase (ALT/SGPT) 23 Albumin 3.1 L Albumin/Globulin Ratio 0.86 Alkaline Phosphatase 100 Anion Gap 14 Anisocytosis 2+ Aspartate Amino Transf (AST/SGOT) 10 L Band Neutrophils % 4.0 Blood Morphology Comment Blood Urea Nitrogen 15 Calcium Level 7.9 L Carbon Dioxide Level 28 Chloride Level 106 Creatinine 1.14 Differential Comment Direct Bilirubin 0.00 Eosinophils # 0.0 Eosinophils % 1.0 Globulin 3.60 H Glucose Level 121 Hematocrit 24.5 L Hemoglobin 8.2 L Indirect Bilirubin 0.4 Lymphocytes # 0.5 L Lymphocytes % 41.0 Mean Corpuscular Hemoglobin 30.4 Mean Corpuscular Hemoglobin Concent 33.5 Mean Corpuscular Volume 90.5 Mean Platelet Volume 9.4 Monocytes # 0.1 L Monocytes % 4.0 Neutrophils # 0.7 L Neutrophils % 50.0 Nucleated Red Blood Cells % 1.0 H Platelet Count 53 #L Platelet Estimate PLT APPEAR DECREASED Potassium Level 3.3 L Red Blood Count 2.71 L Red Cell Distribution Width 21.5 H Sodium Level 145 H Total Bilirubin 0.4 Total Protein 6.7 White Blood Count 1.3 L Test 05/11/16 08:15 Bedside Glucose 101 Medications Medications Current Medications Ondansetron HCl (Zofran Inj) 4 mg Q6H PRN IV NAUSEA AND/OR VOMITING Last administered on 04/30/16at 05:51; Admin Dose 4 MG; Start 04/10/16 at 19:00 Nitroglycerin (Nitroglycerin (Sl Tab) 0.4 Mg) 1 tab Q5M PRN SL CHEST PAIN; Start 04/10/16 at 19:00 Acetaminophen (Tylenol Tab) 650 mg Q6H PRN PO PAIN LEVEL 1-3 OR FEVER Last administered on 05/05/16at 10:07; Admin Dose 650 MG; Start 04/10/16 at 19:00 Acetaminophen/ Hydrocodone Bitart ([place] (5/325)) 1 tab Q6H PRN PO PAIN LEVEL 4 -6 Last administered on 04/14/16at 23:25; Admin Dose 1 TAB; Start 04/10/16 at 19: 00 Acetaminophen/ Hydrocodone Bitart ([place] (5/325)) 2 tab Q6H PRN PO PAIN LEVEL 7 -10 Last administered on 05/11/16 09:57; Admin Dose 2 TAB; Start 04/10/16 at 19: 00 Morphine Sulfate (morphine) 2 mg Q4H PRN IV PAIN LEVEL 7-10 Last administered on 04/29/16at 20:57; Admin Dose 2 MG; Start 04/10/16 at 19:00 Magnesium Hydroxide (Milk Of Mag) 30 ml DAILY PRN PO CONSTIPATION Last administered on 04/21/16at 05:00; Admin Dose 30 ML; Start 04/10/16 at 19:00 Bisacodyl (Dulcolax Supp) 10 mg DAILY PRN [place] CONSTIPATION; Start 04/10/16 at 19 :00 Pantoprazole (Protonix Tab) 40 mg DAILY@06 PO Last administered on 05/11/16 07: 09; Admin Dose 40 MG; Start 04/11/16 at 06:00 Miscellaneous Information 1 ea NOTE XX ; Start 04/10/16 at 19:00 Glucose (Glutose) 15 gm Q15M PRN PO DECREASED GLUCOSE; Start 04/10/16 at 19:00 Glucose (Glutose) 22.5 gm Q15M PRN PO DECREASED GLUCOSE; Start 04/10/16 at 19: 00 Dextrose (D50w Syringe) 25 ml Q15M PRN IV DECREASED GLUCOSE; Start 04/10/16 at 19:00 Dextrose (D50w Syringe) 50 ml Q15M PRN IV DECREASED GLUCOSE; Start 04/10/16 at 19:00 Glucagon (Glucagen) 1 mg Q15M PRN IM DECREASED GLUCOSE; Start 04/10/16 at 19:00 Glucose (Glutose) 15 gm Q15M PRN BUCCAL DECREASED GLUCOSE; Start 04/10/16 at 19 :00 Metoprolol Tartrate (Lopressor) 100 mg BID PO Last administered on 05/11/16 09: 54; Admin Dose 100 MG; Start 04/11/16 at 09:00 Docusate Sodium (Colace) 100 mg Q12H PO Last administered on 05/11/16 09:53; Admin Dose 100 MG; Start 04/11/16 at 19:00 Polyethylene Glycol (Miralax) 17 gm DAILY PO Last administered on 05/11/16 09: 55; Admin Dose 17 GM; Start 04/11/16 at 13:00 Levofloxacin (Levaquin) 500 mg DAILY@06 PO Last administered on 05/11/16 07:09 ; Admin Dose 500 MG; Start 04/15/16 at 14:00 Collagenase (Santyl) 1 applic DAILY TOP Last administered on 05/10/16 08:40; Admin Dose 1 APPLIC; Start 04/17/16 at 16:00 Allopurinol (Zyloprim) 300 mg DAILY PO Last administered on 05/11/16 09:54; Admin Dose 300 MG; Start 04/18/16 at 09:30 IV Flush (NS 10 ml) 10 ml PRN PRN IV IV PROTOCOL Last administered on at 00:35; Admin Dose 10 ML; Start 04/18/16 at 11:30 Dexamethasone (Decadron) 10 mg Q4H PRN IV REACTION Last administered on at 16:58; Admin Dose 10 MG; Start 04/18/16 at 13:00 Diphenhydramine HCl 25 mg 25 mg Q4H PRN IV ALLERGIC REACTION Last administered on 04/24/16at 16:42; Admin Dose 25 MG; Start 04/18/16 at 13:00 Ondansetron HCl/ Sodium Chloride (Zofran Inj/NS) 54 ml @ 110 mls/hr Q8H PRN IV NAUSEA Last administered on 04/30/16 09:51; Admin Dose 110 MLS/HR; Start 04/18/16 at 13:00 Amlodipine Besylate (Norvasc) 5 mg BID PO Last administered on 05/11/16 09:55; Admin Dose 5 MG; Start 04/21/16 at 21:00 Lisinopril (Zestril) 20 mg BID PO Last administered on 05/11/16 09:54; Admin Dose 20 MG; Start 04/21/16 at 21:00 Hydralazine HCl 10 mg 10 mg Q8H PRN IV ELEVATED BLOOD PRESSURE; Start at 12:00 Filgrastim/ Dextrose (Neupogen/D5W) 51.6 ml @ 103.2 mls/ hr DAILY@17 IVPB Last administered on 05/10/16 17:27; Admin Dose 103.2 MLS/HR; Start 04/25/16 at 17:00 Fluconazole (Diflucan) 100 mg DAILY PO Last administered on 05/11/16 09:53; Admin Dose 100 MG; Start 04/27/16 at 09:00 Acyclovir (Zovirax) 400 mg BID PO Last administered on 05/11/16 09:54; Admin Dose 400 MG; Start 04/26/16 at 11:45 Insulin Glargine (Lantus) 40 unit QHS SC Last administered on 05/10/16 22:28; Admin Dose 40 UNIT; Start 05/02/16 at 21:00 Prednisolone/ Sulfacetamide 2 drop 2 drop QID BOTH EYES Last administered on 09:55; Admin Dose 2 DROP; Start 05/02/16 at 17:00 Vancomycin HCl/ Sodium Chloride (Vancocin/NS) 150 ml @ 75 mls/hr Q12H IVPB Last administered on 05/10/16 23:00; Admin Dose 75 MLS/HR; Start 05/08/16 at 11: 00 Potassium Chloride (Klor-Con 20) 40 meq Q4H PO ; Start 05/11/16 at 11:00; Stop at 15:01 TOY DWYER M.D. May 11, 2016 11:10
[2016-05-11] MEDS: VANCOMYCIN 750 MG in SOD CHLORIDE 0.9% 150 ML IVPB SCH ×2 (12:38→22:51)
[2016-05-11] MEDS: POTASSIUM CHLORIDE (SR) 20 MEQ TAB PO SCH ×2 (12:39→16:59)
[2016-05-11] MEDS: COLLAGENASE 30 GM TUBE TOP SCH (12:45)
--- NOTE | 2016-05-11 13:05 | PN ---
DATE: 05/11/2016 INFECTIOUS DISEASE PROGRESS NOTE SUBJECTIVE: The patient is alert, denies pain, discomfort, looks comfortable. No fevers. No nause a, vomiting, diarrhea. WBC 1.3. No shift. BUN 15, creatinine 1.14. ANTIMICROBIALS: 1. Vancomycin. 2. Levaquin. 3. Diflucan. 4. Acyclovir. INDWELLINGS: PICC line, left upper extremity, placed on 04/18/2016. PHYSICAL EXAMINATION: GENERAL: Well-developed, well-nourished, middle-aged man, who is alert, in no dist ress. HEENT: Head atraumatic, normocephalic. Sclerae anicteric. Buccal mucosa dry. NECK: Supple, trachea midline. CHEST: Chest rise is symmetrical. Breath sounds clear. HEART: S1, S2. ABDOMEN: Soft, bowel tones present. EXTREMITIES: Without cyanosis. ASSESSMENT: 1. Hairy cell leukemia, status post chemotherapy. 2. Right diabetic foot ulcer with osteomyelitis of the toe, completing antibiotics. 3. Diabetes. 4. Hypertension. 5. Legally blind. PLAN: The patient remains stable, overall improving. He has 2 more weeks of antibiotics to complet e treatment for osteomyelitis. Dictated By: JUVENAL SANCHEZ BUSINESS ECONOMIST for REJI BEDOYA/JOSE Conf#: [id number] DID#: [id number]
[2016-05-11] MEDS: DEXTROSE 5% IVPB SCH (16:58)
[2016-05-11] MEDS: FILGRASTIM IVPB SCH (16:58)
[2016-05-11 20:21] VITALS: BP 113/69; RESP 22
[2016-05-11 21:30] VITALS: BP 102/59; PULSE 80
[2016-05-11] MEDS: INSULIN GLARGINE [LANtus] 3 ML PEN SC SCH (21:34)
[2016-05-12 05:38] LABS: ALBUMIN 3.2 g/dl (3.3-4.9)
[2016-05-12 05:39] LABS: POTASSIUM 3.6 mmol/L (3.5-5.1)
[2016-05-12 05:40] LABS: CREATININE 1.17 mg/dl (0.61-1.24)
[2016-05-12 05:41] LABS: ALBUMIN/GLOBULIN RATIO 0.88; BILIRUBIN,INDIRECT 0.3 mg/dl (0-1.1); BILIRUBIN,TOTAL 0.3 mg/dl (0.2-1.3); TOTAL PROTEIN 6.8 g/dl (6.1-8.1)
[2016-05-12 05:42] LABS: CALCIUM 8.4 mg/dl (8.4-10.2)
[2016-05-12 05:50] LABS: HEMATOCRIT 24.8 % (42.0-52.0); HEMOGLOBIN 8.4 g/dl (14.0-18.0); MEAN CORPUSCULAR HEMOGLOBIN 30.6 pg (29.0-33.0); MEAN CORPUSCULAR HGB CONC 33.8 g/dl (32.0-37.0); MEAN CORPUSCULAR VOLUME 90.4 fl (82.0-101.0); MEAN PLATELET VOLUME 8.9 fl (7.4-10.4); PLATELET COUNT 55 10^3/UL (140-440); RED BLOOD COUNT 2.75 10^6/ul (4.70-6.10); UNCORRECTED WBC 1.9 10^3/ul (4.8-10.8); WHITE BLOOD COUNT 1.9 10^3/ul (4.8-10.8)
[2016-05-12 05:51] LABS: CONDITION 1; LH ANALYZER COMMENTS 1
[2016-05-12] MEDS: LEVOFLOXACIN 500 MG TAB PO SCH (05:51)
[2016-05-12] MEDS: PANTOPRAZOLE (EC) 40 MG TAB PO SCH (05:51)
[2016-05-12] MEDS: DOCUSATE SODIUM 100 MG CAP PO SCH ×2 (07:00→19:27)
[2016-05-12] MEDS: INSULIN ASPART [NOVOLOG] 3 ML PEN SC SCH ×6 (07:50→18:26)
[2016-05-12 07:53] VITALS: BP 139/80; RESP 20
[2016-05-12] MEDS: ACYCLOVIR 400 MG TAB PO SCH ×2 (09:12→21:30)
[2016-05-12] MEDS: ALLOPURINOL 300 MG TAB PO SCH (09:12)
[2016-05-12] MEDS: FLUCONAZOLE 100 MG TAB PO SCH (09:12)
[2016-05-12] MEDS: METOPROLOL 100 MG TAB PO SCH ×2 (09:13→21:30)
[2016-05-12] MEDS: POLYETHYLENE GLYCOL 17 GM PACKET PO SCH (09:13)
[2016-05-12] MEDS: AMLODIPINE 5 MG TAB PO SCH ×2 (09:13→21:31)
[2016-05-12] MEDS: PREDNISOLONE/SULFACETAMIDE 5 ML OPH BOTH EYES SCH ×4 (09:14→21:31)
[2016-05-12] MEDS: LISINOPRIL 20 MG TAB PO SCH ×2 (09:17→21:30)
[2016-05-12] MEDS ORDERED: POTASSIUM CHLORIDE (SR) 20 MEQ TAB PO STA (09:34)
--- NOTE | 2016-05-12 09:39 | PDOCDIS ---
Discharge Instructions CONDITION Patient Condition: Good HOME CARE INSTRUCTIONS: Special Diet: ADA DIET FOLLOW UP/APPOINTMENTS Appointments Follow up with PCP within 2 to 4 weeks Follow up with Oncology in 3 top 4 weeks for repeat BM biopsy Follow up with Podiatry in 2 to 4 weeks Outpatient referral to Ophthalmology for ? CMV retinitis LAUREL ANDERSON May 12, 2016 09:38
[2016-05-12 09:43] LABS: EOSINOPHILS # 0.3 10^3/ul (0.0-0.5); LYMPHOCYTES # 0.6 10^3/ul (0.8-2.9); MONOCYTE # 0.1 10^3/ul (0.3-0.9); NEUTROPHIL # 0.7 10^3/ul (1.6-7.5); PLATELET ESTIMATE PLT APPEAR DECREASED
[2016-05-12 09:44] LABS: POLYCHROMASIA 1+
--- NOTE | 2016-05-12 10:06 | CONS ---
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 Initial labs also revealed pancytopenia with a Hg 6.7 and platelets in 30's. 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 pancytopenia continues to improve. Problems: Additional Assessment/Plan -Pt is now s/p cladribine 0.14mg/kg/day continues IV infusion x 5 days (04/18/16 -04/23/16) + Rituxan (04/24/16). -continue antibiotics per ID for osteomyelitis. has 2 more weeks of antibiotics -neutropenia related to cladribine, continue to monitor. continue Neupogen for now. ANC continues to improve -continue broad spectrum antibiotics for neutropenic fevers per ID. pt now afebrile -keep Hg > 8 and platelets > 10. no transfusion needed today Labs not consistent with DIC. Vancomycin can sometimes cause thrombocytopenia but patient has been on vanc since 04/10, and was on zosyn but from 04/10 to . Will continue to monitor, transfuse if plt < 10 or bleeding. -Peripheral smear reviewed by path, with moderate anisocytosis, no blasts, no increased polychromasia so no evidence of hemolysis on 05/04 -pt will need a repeat bone marrow bx in 3-4 weeks. this can be done as an out patient Approximately 40 min were spent at patient's bedside and in coordination of his care Consultation Date/Type/Reason Admit Date/Time Apr 10, 2016 at 16:55 Initial Consult Date 04/11/16 Type of Consultation: Hematology Reason for Consultation hairy cell leukemia Referring Provider: LAUREL ANDERSON 24 HR Interval Summary Free Text/Dictation no acute overnight events. pt doing well, counts are improving. no fevers Exam/Review of Systems Vital Signs Vitals Vital Signs Date Time Temp Pulse Resp B/P Pulse Ox O2 Delivery O2 Flow Rate FiO2 05/12/16 07:53 97.2 88 20 139/80 98 1/4/17 20:10 Room Air Intake and Output 05/11/16 05/11/16 05/12/16 15:00 23:00 07:00 Intake Total 150 ml 851.6 ml 950 ml Output Total 2000 ml 1600 ml Balance 150 ml -1148.4 ml -650 ml Exam Constitutional: alert, oriented Psych: nl mood/affect, no complaints Head: atraumatic, normocephalic Eyes: nl conjunctiva ENMT: nl external ears & nose, nl lips & teeth Neck: non-tender, supple Respiratory: clear to auscultation, normal air movement Cardiovascular: nl pulses, regular rate and rhythm Gastrointestinal: nl liver, spleen, soft Musculoskeletal: nl extremities to inspection, nl gait and stance Extremities: normal pulses Results Result Diagram: 05/12/16 0435 05/12/16 0436 Results 24 hrs Laboratory Tests Test 05/11/16 11:48 05/11/16 16:48 05/11/16 21:27 05/12/16 04:35 Bedside Glucose 136 92 181 Band Neutrophils % 10.0 H Basophils # 0.0 Basophils % 1.0 Blood Morphology Comment Eosinophils # 0.3 Eosinophils % 18.0 H Hematocrit 24.8 L Hemoglobin 8.4 L Lymphocytes # 0.6 L Lymphocytes % 30.0 Mean Corpuscular Hemoglobin 30.6 Mean Corpuscular Hemoglobin Concent 33.8 Mean Corpuscular Volume 90.4 Mean Platelet Volume 8.9 Monocytes # 0.1 L Monocytes % 4.0 Neutrophils # 0.7 L Neutrophils % 37.0 L Platelet Count 55 L Platelet Estimate PLT APPEAR DECREASED Polychromasia 1+ Red Blood Count 2.75 L Red Cell Distribution Width 22.0 H White Blood Count 1.9 #L Test 05/12/16 04:36 05/12/16 09:10 Alanine Aminotransferase (ALT/SGPT) 24 Albumin 3.2 L Albumin/Globulin Ratio 0.88 Alkaline Phosphatase 103 Anion Gap 14 Aspartate Amino Transf (AST/SGOT) 10 L Blood Urea Nitrogen 14 Calcium Level 8.4 Carbon Dioxide Level 28 Chloride Level 107 Creatinine 1.17 Direct Bilirubin 0.00 Globulin 3.60 H Glucose Level 138 Indirect Bilirubin 0.3 Magnesium Level 1.8 Potassium Level 3.6 Sodium Level 145 H Total Bilirubin 0.3 Total Protein 6.8 Bedside Glucose 134 Medications Medications Current Medications Ondansetron HCl (Zofran Inj) 4 mg Q6H PRN IV NAUSEA AND/OR VOMITING Last administered on 04/30/16 05:51; Admin Dose 4 MG; Start 04/10/16 at 19:00 Nitroglycerin (Nitroglycerin (Sl Tab) 0.4 Mg) 1 tab Q5M PRN SL CHEST PAIN; Start 04/10/16 at 19:00 Acetaminophen (Tylenol Tab) 650 mg Q6H PRN PO PAIN LEVEL 1-3 OR FEVER Last administered on 05/05/16 10:07; Admin Dose 650 MG; Start 04/10/16 at 19:00 Acetaminophen/ Hydrocodone Bitart ([place] (5/325)) 1 tab Q6H PRN PO PAIN LEVEL 4 -6 Last administered on 04/14/16 23:25; Admin Dose 1 TAB; Start 04/10/16 at 19: 00 Acetaminophen/ Hydrocodone Bitart ([place] (5/325)) 2 tab Q6H PRN PO PAIN LEVEL 7 -10 Last administered on 05/11/16 21:32; Admin Dose 2 TAB; Start 04/10/16 at 19: 00 Morphine Sulfate (morphine) 2 mg Q4H PRN IV PAIN LEVEL 7-10 Last administered on 04/29/16 20:57; Admin Dose 2 MG; Start 04/10/16 at 19:00 Magnesium Hydroxide (Milk Of Mag) 30 ml DAILY PRN PO CONSTIPATION Last administered on 04/21/16 05:00; Admin Dose 30 ML; Start 04/10/16 at 19:00 Bisacodyl (Dulcolax Supp) 10 mg DAILY PRN [place] CONSTIPATION; Start 04/10/16 at 19 :00 Pantoprazole (Protonix Tab) 40 mg DAILY@06 PO Last administered on 05/12/16 05: 51; Admin Dose 40 MG; Start 04/11/16 at 06:00 Miscellaneous Information 1 ea NOTE XX ; Start 04/10/16 at 19:00 Glucose (Glutose) 15 gm Q15M PRN PO DECREASED GLUCOSE; Start 04/10/16 at 19:00 Glucose (Glutose) 22.5 gm Q15M PRN PO DECREASED GLUCOSE; Start 04/10/16 at 19: 00 Dextrose (D50w Syringe) 25 ml Q15M PRN IV DECREASED GLUCOSE; Start 04/10/16 at 19:00 Dextrose (D50w Syringe) 50 ml Q15M PRN IV DECREASED GLUCOSE; Start 04/10/16 at 19:00 Glucagon (Glucagen) 1 mg Q15M PRN IM DECREASED GLUCOSE; Start 04/10/16 at 19:00 Glucose (Glutose) 15 gm Q15M PRN BUCCAL DECREASED GLUCOSE; Start 04/10/16 at 19 :00 Metoprolol Tartrate (Lopressor) 100 mg BID PO Last administered on 05/12/16 09: 13; Admin Dose 100 MG; Start 04/11/16 at 09:00 Docusate Sodium (Colace) 100 mg Q12H PO Last administered on 05/11/16 09:53; Admin Dose 100 MG; Start 04/11/16 at 19:00 Polyethylene Glycol (Miralax) 17 gm DAILY PO Last administered on 05/12/16 09: 13; Admin Dose 17 GM; Start 04/11/16 at 13:00 Levofloxacin (Levaquin) 500 mg DAILY@06 PO Last administered on 05/12/16 05:51 ; Admin Dose 500 MG; Start 04/15/16 at 14:00 Collagenase (Santyl) 1 applic DAILY TOP Last administered on 05/11/16 12:45; Admin Dose 1 APPLIC; Start 04/17/16 at 16:00 Allopurinol (Zyloprim) 300 mg DAILY PO Last administered on 05/12/16 09:12; Admin Dose 300 MG; Start 04/18/16 at 09:30 IV Flush (NS 10 ml) 10 ml PRN PRN IV IV PROTOCOL Last administered on at 00:35; Admin Dose 10 ML; Start 04/18/16 at 11:30 Dexamethasone (Decadron) 10 mg Q4H PRN IV REACTION Last administered on at 16:58; Admin Dose 10 MG; Start 04/18/16 at 13:00 Diphenhydramine HCl 25 mg 25 mg Q4H PRN IV ALLERGIC REACTION Last administered on 04/24/16at 16:42; Admin Dose 25 MG; Start 04/18/16 at 13:00 Ondansetron HCl/ Sodium Chloride (Zofran Inj/NS) 54 ml @ 110 mls/hr Q8H PRN IV NAUSEA Last administered on 12/25/16at 09:51; Admin Dose 110 MLS/HR; Start 04/18/16 at 13:00 Amlodipine Besylate (Norvasc) 5 mg BID PO Last administered on 05/12/16 09:13; Admin Dose 5 MG; Start 04/21/16 at 21:00 Lisinopril (Zestril) 20 mg BID PO Last administered on 05/12/16 09:17; Admin Dose 20 MG; Start 04/21/16 at 21:00 Hydralazine HCl 10 mg 10 mg Q8H PRN IV ELEVATED BLOOD PRESSURE; Start at 12:00 Filgrastim/ Dextrose (Neupogen/D5W) 51.6 ml @ 103.2 mls/ hr DAILY@17 IVPB Last administered on 05/11/16 16:58; Admin Dose 103.2 MLS/HR; Start 04/25/16 at 17:00 Fluconazole (Diflucan) 100 mg DAILY PO Last administered on 05/12/16 09:12; Admin Dose 100 MG; Start 04/27/16 at 09:00 Acyclovir (Zovirax) 400 mg BID PO Last administered on 05/12/16 09:12; Admin Dose 400 MG; Start 04/26/16 at 11:45 Insulin Glargine (Lantus) 40 unit QHS SC Last administered on 05/11/16 21:34; Admin Dose 40 UNIT; Start 05/02/16 at 21:00 Prednisolone/ Sulfacetamide 2 drop 2 drop QID BOTH EYES Last administered on 09:14; Admin Dose 2 DROP; Start 05/02/16 at 17:00 Vancomycin HCl/ Sodium Chloride (Vancocin/NS) 150 ml @ 75 mls/hr Q12H IVPB Last administered on 05/11/16 22:51; Admin Dose 75 MLS/HR; Start 05/08/16 at 11: 00 TOY DWYER M.D. May 12, 2016 10:06
--- NOTE | 2016-05-12 12:04 | PN ---
Date/Time of Note Date/Time of Note DATE: 05/12/16 TIME: 11:52 Assessment/Plan VTE Prophylaxis VTE Prophylaxis Intervention: SCD's Lines/Catheters IV Catheter Type (from Nrsg): PICC Line Central line still needed: Yes (for IV access ) Urinary Cath still in place: No Assessment/Plan Assessment/Plan 55-year-old male with: 1. Hairy cell Leukemia. patient admitted with anemia, acute on chronic, pancytopenia, primarily thrombocytopenic. HIV negative. Appreciate Hematology's assistance and ID recs On Neupogen per Heme, abx adjusted per ID, patient also on Acyclovir and Diflucan Hb stable and Plts in 50's today Resolving Neutropenia with WBC up to 1.9 and ANC better up to 893 today Tolerating po well and PT. Continue Diflucan and Acyclovir until ANC >1500 after discussion with ID, so x [address] Flannery/Dr Lucas following. 2. Right 1st and 2nd toe cellulitis/osteomyelitis on MRI. Neutropenic post chemo. JOSE J negative Blood cultures NGTD and wound cultures NGTD Wound care and Dr Thomas following patient. On Vanco, Levaquin for 2 more weeks to complete 6 weeks per ID 3. UTI, urine culture with Coag neg staph and tiffany but low CFU: currently on Vanco, Diflucan. 4. Blood cx with GPC, 1/2,? contaminant, repeat blood cx negative. On Vanco. ID following 5. Diabetes mellitus. A1c back at 7.2 ...Continue current insulin regimen, keeping off glyburide. On Tradjenta. Decreased Lantus back to 40 and premeal insulin to 6 due to episodes of mild hypoglycemia. Appreciate ems educator recommendations. Patient more compliant with ADA diet now. 6. Cardiomegaly, EF 50%. No further episodes of NSVT for the past 3 weeks at least. Continue Lopressor/Bblock Electrolytes stable again today. S/p negative JOSE J 7. Hypertension. Continue beta blockers, Norvasc and Lisinopril. Also on hydralazine prn. 8. Constipation, relieved: continue Miralax and Colace scheduled and add MOM along with Dulcolax prn. 9. 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 now on acyclovir so d/c Valacyclovir ...Will need Ophthalmology eval outpatient either way if not done prior Patient blind 10. Hypokalemia: replete K today Prophylaxis. Proton pump inhibitors for GI prophylaxis and SCDs for DVT prophylaxis. DISPOSITION: Post Chemo. F/u wound care and follow up further ID and Podiatry recs. F/u counts, on Neupogen and needs to go to SNF today. Off Neutropenic precautions . Subjective 24 Hr Interval Summary Free Text/Dictation Patient is doing well Off Neupogen now per Oncology, last dose was yesterday Afebrile and ANC at 893 today (> 500 x 2 days and still going up) so d/c Neutropenic precautions D/c to SNF today if bed available Exam/Review of Systems Vital Signs Vitals Vital Signs Date Time Temp Pulse Resp B/P Pulse Ox O2 Delivery O2 Flow Rate FiO2 05/12/16 07:53 97.2 88 20 139/80 98 05/10/16 20:10 Room Air Intake and Output 05/11/16 05/11/16 05/12/16 15:00 23:00 07:00 Intake Total 150 ml 851.6 ml 950 ml Output Total 2000 ml 1600 ml Balance 150 ml -1148.4 ml -650 ml Exam Constitutional: alert, oriented, other (blind), well developed Respiratory: clear to auscultation, normal air movement Cardiovascular: nl pulses, regular rate and rhythm Gastrointestinal: non-tender, soft Musculoskeletal: other (right foot wound healing well ) Extremities: normal pulses, other (no edema, clubbing or cyanosis ) 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: SLOT ROUTER II-XII intact (blind), nl mental status, nl speech, nl strength Results Result Diagram: 05/12/16 0435 05/12/16 0436 Results 24 hrs Laboratory Tests Test 05/11/16 16:48 05/11/16 21:27 05/12/16 04:35 05/12/16 04:36 Bedside Glucose 92 181 Band Neutrophils % 10.0 H Basophils # 0.0 Basophils % 1.0 Blood Morphology Comment Eosinophils # 0.3 Eosinophils % 18.0 H Hematocrit 24.8 L Hemoglobin 8.4 L Lymphocytes # 0.6 L Lymphocytes % 30.0 Mean Corpuscular Hemoglobin 30.6 Mean Corpuscular Hemoglobin Concent 33.8 Mean Corpuscular Volume 90.4 Mean Platelet Volume 8.9 Monocytes # 0.1 L Monocytes % 4.0 Neutrophils # 0.7 L Neutrophils % 37.0 L Platelet Count 55 L Platelet Estimate PLT APPEAR DECREASED Polychromasia 1+ Red Blood Count 2.75 L Red Cell Distribution Width 22.0 H White Blood Count 1.9 #L Alanine Aminotransferase (ALT/SGPT) 24 Albumin 3.2 L Albumin/Globulin Ratio 0.88 Alkaline Phosphatase 103 Anion Gap 14 Aspartate Amino Transf (AST/SGOT) 10 L Blood Urea Nitrogen 14 Calcium Level 8.4 Carbon Dioxide Level 28 Chloride Level 107 Creatinine 1.17 Direct Bilirubin 0.00 Globulin 3.60 H Glucose Level 138 Indirect Bilirubin 0.3 Magnesium Level 1.8 Potassium Level 3.6 Sodium Level 145 H Total Bilirubin 0.3 Total Protein 6.8 Test 05/12/16 09:10 Bedside Glucose 134 Medications Medications Current Medications Ondansetron HCl (Zofran Inj) 4 mg Q6H PRN IV NAUSEA AND/OR VOMITING Last administered on 04/30/16 05:51; Admin Dose 4 MG; Start 04/10/16 at 19:00 Nitroglycerin (Nitroglycerin (Sl Tab) 0.4 Mg) 1 tab Q5M PRN SL CHEST PAIN; Start 04/10/16 at 19:00 Acetaminophen (Tylenol Tab) 650 mg Q6H PRN PO PAIN LEVEL 1-3 OR FEVER Last administered on 05/05/16 10:07; Admin Dose 650 MG; Start 04/10/16 at 19:00 Acetaminophen/ Hydrocodone Bitart ([place] (5/325)) 1 tab Q6H PRN PO PAIN LEVEL 4 -6 Last administered on 04/14/16 23:25; Admin Dose 1 TAB; Start 04/10/16 at 19: 00 Acetaminophen/ Hydrocodone Bitart ([place] (5/325)) 2 tab Q6H PRN PO PAIN LEVEL 7 -10 Last administered on 05/11/16 21:32; Admin Dose 2 TAB; Start 04/10/16 at 19: 00 Morphine Sulfate (morphine) 2 mg Q4H PRN IV PAIN LEVEL 7-10 Last administered on 04/29/16 20:57; Admin Dose 2 MG; Start 04/10/16 at 19:00 Magnesium Hydroxide (Milk Of Mag) 30 ml DAILY PRN PO CONSTIPATION Last administered on 04/21/16 05:00; Admin Dose 30 ML; Start 04/10/16 at 19:00 Bisacodyl (Dulcolax Supp) 10 mg DAILY PRN [place] CONSTIPATION; Start 04/10/16 at 19 :00 Pantoprazole (Protonix Tab) 40 mg DAILY@06 PO Last administered on 05/12/16 05: 51; Admin Dose 40 MG; Start 04/11/16 at 06:00 Miscellaneous Information 1 ea NOTE XX ; Start 04/10/16 at 19:00 Glucose (Glutose) 15 gm Q15M PRN PO DECREASED GLUCOSE; Start 04/10/16 at 19:00 Glucose (Glutose) 22.5 gm Q15M PRN PO DECREASED GLUCOSE; Start 04/10/16 at 19: 00 Dextrose (D50w Syringe) 25 ml Q15M PRN IV DECREASED GLUCOSE; Start 04/10/16 at 19:00 Dextrose (D50w Syringe) 50 ml Q15M PRN IV DECREASED GLUCOSE; Start 04/10/16 at 19:00 Glucagon (Glucagen) 1 mg Q15M PRN IM DECREASED GLUCOSE; Start 04/10/16 at 19:00 Glucose (Glutose) 15 gm Q15M PRN BUCCAL DECREASED GLUCOSE; Start 04/10/16 at 19 :00 Metoprolol Tartrate (Lopressor) 100 mg BID PO Last administered on 05/12/16 09: 13; Admin Dose 100 MG; Start 04/11/16 at 09:00 Docusate Sodium (Colace) 100 mg Q12H PO Last administered on 05/11/16 09:53; Admin Dose 100 MG; Start 04/11/16 at 19:00 Polyethylene Glycol (Miralax) 17 gm DAILY PO Last administered on 05/12/16 09: 13; Admin Dose 17 GM; Start 04/11/16 at 13:00 Levofloxacin (Levaquin) 500 mg DAILY@06 PO Last administered on 05/12/16 05:51 ; Admin Dose 500 MG; Start 04/15/16 at 14:00 Collagenase (Santyl) 1 applic DAILY TOP Last administered on 05/11/16 12:45; Admin Dose 1 APPLIC; Start 04/17/16 at 16:00 Allopurinol (Zyloprim) 300 mg DAILY PO Last administered on 05/12/16 09:12; Admin Dose 300 MG; Start 04/18/16 at 09:30 IV Flush (NS 10 ml) 10 ml PRN PRN IV IV PROTOCOL Last administered on at 00:35; Admin Dose 10 ML; Start 04/18/16 at 11:30 Dexamethasone (Decadron) 10 mg Q4H PRN IV REACTION Last administered on at 16:58; Admin Dose 10 MG; Start 04/18/16 at 13:00 Diphenhydramine HCl 25 mg 25 mg Q4H PRN IV ALLERGIC REACTION Last administered on 04/24/16at 16:42; Admin Dose 25 MG; Start 04/18/16 at 13:00 Ondansetron HCl/ Sodium Chloride (Zofran Inj/NS) 54 ml @ 110 mls/hr Q8H PRN IV NAUSEA Last administered on 04/30/16 09:51; Admin Dose 110 MLS/HR; Start 04/18/16 at 13:00 Amlodipine Besylate (Norvasc) 5 mg BID PO Last administered on 05/12/16 09:13; Admin Dose 5 MG; Start 04/21/16 at 21:00 Lisinopril (Zestril) 20 mg BID PO Last administered on 05/12/16 09:17; Admin Dose 20 MG; Start 04/21/16 at 21:00 Hydralazine HCl 10 mg 10 mg Q8H PRN IV ELEVATED BLOOD PRESSURE; Start at 12:00 Filgrastim/ Dextrose (Neupogen/D5W) 51.6 ml @ 103.2 mls/ hr DAILY@17 IVPB Last administered on 05/11/16 16:58; Admin Dose 103.2 MLS/HR; Start 04/25/16 at 17:00 Fluconazole (Diflucan) 100 mg DAILY PO Last administered on 05/12/16 09:12; Admin Dose 100 MG; Start 04/27/16 at 09:00 Acyclovir (Zovirax) 400 mg BID PO Last administered on 05/12/16 09:12; Admin Dose 400 MG; Start 04/26/16 at 11:45 Insulin Glargine (Lantus) 40 unit QHS SC Last administered on 05/11/16 21:34; Admin Dose 40 UNIT; Start 05/02/16 at 21:00 Prednisolone/ Sulfacetamide 2 drop 2 drop QID BOTH EYES Last administered on 09:14; Admin Dose 2 DROP; Start 05/02/16 at 17:00 Vancomycin HCl/ Sodium Chloride (Vancocin/NS) 150 ml @ 75 mls/hr Q12H IVPB Last administered on 05/11/16 22:51; Admin Dose 75 MLS/HR; Start 05/08/16 at 11: 00 LAUREL ANDERSON May 12, 2016 12:04
[2016-05-12] MEDS: VANCOMYCIN 750 MG in SOD CHLORIDE 0.9% 150 ML IVPB SCH ×2 (12:34→23:37)
--- NOTE | 2016-05-12 13:30 | CONS ---
Date/Time of Note Date/Time of Note DATE: 05/12/16 TIME: 13:28 Consult Date/Type/Reason Admit Date/Time Apr 10, 2016 at 16:55 Initial Consult Date 04/11/16 Type of Consultation: ID Ordering Provider: LAUREL ANDERSON Subjective no events, awake, denies pain, no fevers, nad Objective Vital Signs Date Time Temp Pulse Resp B/P Pulse Ox O2 Delivery O2 Flow Rate FiO2 05/12/16 07:53 97.2 88 20 139/80 98 05/10/16 20:10 Room Air Intake and Output 05/11/16 05/11/16 05/12/16 15:00 23:00 07:00 Intake Total 150 ml 851.6 ml 950 ml Output Total 2000 ml 1600 ml Balance 150 ml -1148.4 ml -650 ml Results/Medications Result Diagram: 05/12/16 0435 05/12/16 0436 Results 24 hrs Laboratory Tests Test 05/11/16 16:48 05/11/16 21:27 05/12/16 04:35 05/12/16 04:36 Bedside Glucose 92 181 Band Neutrophils % 10.0 H Basophils # 0.0 Basophils % 1.0 Blood Morphology Comment Eosinophils # 0.3 Eosinophils % 18.0 H Hematocrit 24.8 L Hemoglobin 8.4 L Lymphocytes # 0.6 L Lymphocytes % 30.0 Mean Corpuscular Hemoglobin 30.6 Mean Corpuscular Hemoglobin Concent 33.8 Mean Corpuscular Volume 90.4 Mean Platelet Volume 8.9 Monocytes # 0.1 L Monocytes % 4.0 Neutrophils # 0.7 L Neutrophils % 37.0 L Platelet Count 55 L Platelet Estimate PLT APPEAR DECREASED Polychromasia 1+ Red Blood Count 2.75 L Red Cell Distribution Width 22.0 H White Blood Count 1.9 #L Alanine Aminotransferase (ALT/SGPT) 24 Albumin 3.2 L Albumin/Globulin Ratio 0.88 Alkaline Phosphatase 103 Anion Gap 14 Aspartate Amino Transf (AST/SGOT) 10 L Blood Urea Nitrogen 14 Calcium Level 8.4 Carbon Dioxide Level 28 Chloride Level 107 Creatinine 1.17 Direct Bilirubin 0.00 Globulin 3.60 H Glucose Level 138 Indirect Bilirubin 0.3 Magnesium Level 1.8 Potassium Level 3.6 Sodium Level 145 H Total Bilirubin 0.3 Total Protein 6.8 Test 05/12/16 09:10 05/12/16 12:33 Bedside Glucose 134 117 Medications Current Medications Ondansetron HCl (Zofran Inj) 4 mg Q6H PRN IV NAUSEA AND/OR VOMITING Last administered on 04/30/16 05:51; Admin Dose 4 MG; Start 04/10/16 at 19:00 Nitroglycerin (Nitroglycerin (Sl Tab) 0.4 Mg) 1 tab Q5M PRN SL CHEST PAIN; Start 04/10/16 at 19:00 Acetaminophen (Tylenol Tab) 650 mg Q6H PRN PO PAIN LEVEL 1-3 OR FEVER Last administered on 05/05/16 10:07; Admin Dose 650 MG; Start 04/10/16 at 19:00 Acetaminophen/ Hydrocodone Bitart ([place] (5/325)) 1 tab Q6H PRN PO PAIN LEVEL 4 -6 Last administered on 04/14/16 23:25; Admin Dose 1 TAB; Start 04/10/16 at 19: 00 Acetaminophen/ Hydrocodone Bitart ([place] (5/325)) 2 tab Q6H PRN PO PAIN LEVEL 7 -10 Last administered on 05/11/16 21:32; Admin Dose 2 TAB; Start 04/10/16 at 19: 00 Morphine Sulfate (morphine) 2 mg Q4H PRN IV PAIN LEVEL 7-10 Last administered on 04/29/16 20:57; Admin Dose 2 MG; Start 04/10/16 at 19:00 Magnesium Hydroxide (Milk Of Mag) 30 ml DAILY PRN PO CONSTIPATION Last administered on 04/21/16 05:00; Admin Dose 30 ML; Start 04/10/16 at 19:00 Bisacodyl (Dulcolax Supp) 10 mg DAILY PRN [place] CONSTIPATION; Start 04/10/16 at 19 :00 Pantoprazole (Protonix Tab) 40 mg DAILY@06 PO Last administered on 05/12/16 05: 51; Admin Dose 40 MG; Start 04/11/16 at 06:00 Miscellaneous Information 1 ea NOTE XX ; Start 04/10/16 at 19:00 Glucose (Glutose) 15 gm Q15M PRN PO DECREASED GLUCOSE; Start 04/10/16 at 19:00 Glucose (Glutose) 22.5 gm Q15M PRN PO DECREASED GLUCOSE; Start 04/10/16 at 19: 00 Dextrose (D50w Syringe) 25 ml Q15M PRN IV DECREASED GLUCOSE; Start 04/10/16 at 19:00 Dextrose (D50w Syringe) 50 ml Q15M PRN IV DECREASED GLUCOSE; Start 04/10/16 at 19:00 Glucagon (Glucagen) 1 mg Q15M PRN IM DECREASED GLUCOSE; Start 04/10/16 at 19:00 Glucose (Glutose) 15 gm Q15M PRN BUCCAL DECREASED GLUCOSE; Start 04/10/16 at 19 :00 Metoprolol Tartrate (Lopressor) 100 mg BID PO Last administered on 05/12/16 09: 13; Admin Dose 100 MG; Start 04/11/16 at 09:00 Docusate Sodium (Colace) 100 mg Q12H PO Last administered on 05/12/16 07:00; Admin Dose 100 MG; Start 04/11/16 at 19:00 Polyethylene Glycol (Miralax) 17 gm DAILY PO Last administered on 05/12/16 09: 13; Admin Dose 17 GM; Start 04/11/16 at 13:00 Levofloxacin (Levaquin) 500 mg DAILY@06 PO Last administered on 05/12/16 05:51 ; Admin Dose 500 MG; Start 04/15/16 at 14:00 Collagenase (Santyl) 1 applic DAILY TOP Last administered on 05/11/16 12:45; Admin Dose 1 APPLIC; Start 04/17/16 at 16:00 Allopurinol (Zyloprim) 300 mg DAILY PO Last administered on 05/12/16 09:12; Admin Dose 300 MG; Start 04/18/16 at 09:30 IV Flush (NS 10 ml) 10 ml PRN PRN IV IV PROTOCOL Last administered on at 00:35; Admin Dose 10 ML; Start 04/18/16 at 11:30 Dexamethasone (Decadron) 10 mg Q4H PRN IV REACTION Last administered on at 16:58; Admin Dose 10 MG; Start 04/18/16 at 13:00 Diphenhydramine HCl 25 mg 25 mg Q4H PRN IV ALLERGIC REACTION Last administered on 04/24/16at 16:42; Admin Dose 25 MG; Start 04/18/16 at 13:00 Ondansetron HCl/ Sodium Chloride (Zofran Inj/NS) 54 ml @ 110 mls/hr Q8H PRN IV NAUSEA Last administered on 04/30/16at 09:51; Admin Dose 110 MLS/HR; Start 04/18/16 at 13:00 Amlodipine Besylate (Norvasc) 5 mg BID PO Last administered on 05/12/16 09:13; Admin Dose 5 MG; Start 04/21/16 at 21:00 Lisinopril (Zestril) 20 mg BID PO Last administered on 05/12/16 09:17; Admin Dose 20 MG; Start 04/21/16 at 21:00 Hydralazine HCl 10 mg 10 mg Q8H PRN IV ELEVATED BLOOD PRESSURE; Start at 12:00 Filgrastim/ Dextrose (Neupogen/D5W) 51.6 ml @ 103.2 mls/ hr DAILY@17 IVPB Last administered on 05/11/16 16:58; Admin Dose 103.2 MLS/HR; Start 04/25/16 at 17:00 Fluconazole (Diflucan) 100 mg DAILY PO Last administered on 05/12/16 09:12; Admin Dose 100 MG; Start 04/27/16 at 09:00 Acyclovir (Zovirax) 400 mg BID PO Last administered on 05/12/16 09:12; Admin Dose 400 MG; Start 04/26/16 at 11:45 Insulin Glargine (Lantus) 40 unit QHS SC Last administered on 05/11/16 21:34; Admin Dose 40 UNIT; Start 05/02/16 at 21:00 Prednisolone/ Sulfacetamide 2 drop 2 drop QID BOTH EYES Last administered on 12:44; Admin Dose 2 DROP; Start 05/02/16 at 17:00 Vancomycin HCl/ Sodium Chloride (Vancocin/NS) 150 ml @ 75 mls/hr Q12H IVPB Last administered on 05/12/16 12:34; Admin Dose 75 MLS/HR; Start 05/08/16 at 11: 00 Assessment/Plan Chief Complaint/Hosp Course ANTIMICROBIALS: 1. Vancomycin 2. Levaquin. 3. Diflucan 4. Acyclovir Indwellings: LUE PICC 04/18/16 PHYSICAL EXAMINATION: GENERAL: Obese, well-developed, middle-aged man who is awake, in no distress. HEENT: Head atraumatic, normocephalic. Sclerae anicteric. Buccal mucosa pink. NECK: Supple. Trachea midline. LUNGS: Chest rise symmetrical. Breath sounds clear. HEART: S1, S2. ABDOMEN: Soft. Bowel tones present. EXTREMITIES: No cyanosis ASSESSMENT: 1. 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 4. Diabetes. 5. Hypertension. 6. Legally blind. PLAN: Remains stable, wbc increasing, completing abx for OM DW staff Problems: JUVENAL SANCHEZ NP May 12, 2016 13:29
[2016-05-12] MEDS: COLLAGENASE 30 GM TUBE TOP SCH (15:53)
[2016-05-12] MEDS: FILGRASTIM IVPB SCH (19:29)
[2016-05-12] MEDS: DEXTROSE 5% IVPB SCH (19:29)
[2016-05-12 20:37] VITALS: BP 132/67; RESP 22
[2016-05-12] MEDS: INSULIN GLARGINE [LANtus] 3 ML PEN SC SCH (21:33)
[2016-05-12] MEDS: HYDROCODONE/APAP (5/325) TAB PO PRN (21:36)
[2016-05-13 06:03] LABS: HEMOGLOBIN 8.4 g/dl (14.0-18.0); MEAN CORPUSCULAR HEMOGLOBIN 30.4 pg (29.0-33.0); MEAN CORPUSCULAR HGB CONC 33.4 g/dl (32.0-37.0); MEAN CORPUSCULAR VOLUME 91.2 fl (82.0-101.0); MEAN PLATELET VOLUME 8.9 fl (7.4-10.4); PLATELET COUNT 70 10^3/UL (140-440); RED BLOOD COUNT 2.75 10^6/ul (4.70-6.10); RED CELL DISTRIBUTION WIDTH 22.3 % (11.5-14.5); UNCORRECTED WBC 2.2 10^3/ul (4.8-10.8); WHITE BLOOD COUNT 2.2 10^3/ul (4.8-10.8)
[2016-05-13] MEDS: MAGNESIUM HYDROXIDE 30ML CUP PO PRN (06:08)
[2016-05-13] MEDS: LEVOFLOXACIN 500 MG TAB PO SCH (06:08)
[2016-05-13] MEDS: DOCUSATE SODIUM 100 MG CAP PO SCH (06:08)
[2016-05-13] MEDS: PANTOPRAZOLE (EC) 40 MG TAB PO SCH (06:08)
[2016-05-13 06:11] LABS: POTASSIUM 3.5 mmol/L (3.5-5.1)
[2016-05-13 06:13] LABS: ALBUMIN/GLOBULIN RATIO 0.83; BILIRUBIN,INDIRECT 0.3 mg/dl (0-1.1); BILIRUBIN,TOTAL 0.3 mg/dl (0.2-1.3); CREATININE 1.14 mg/dl (0.61-1.24); TOTAL PROTEIN 6.6 g/dl (6.1-8.1)
[2016-05-13 06:14] LABS: CALCIUM 8.1 mg/dl (8.4-10.2)
[2016-05-13 06:22] LABS: CONDITION 1; LH ANALYZER COMMENTS 1; SUSPECT 1
[2016-05-13] MEDS: INSULIN ASPART [NOVOLOG] 3 ML PEN SC SCH ×7 (07:50→17:55)
[2016-05-13 08:08] VITALS: BP 114/70; RESP 18
[2016-05-13] MEDS: PREDNISOLONE/SULFACETAMIDE 5 ML OPH BOTH EYES SCH ×3 (08:50→17:00)
[2016-05-13] MEDS: ALLOPURINOL 300 MG TAB PO SCH (08:50)
[2016-05-13] MEDS: ACYCLOVIR 400 MG TAB PO SCH (08:54)
[2016-05-13] MEDS: FLUCONAZOLE 100 MG TAB PO SCH (08:54)
[2016-05-13] MEDS: LISINOPRIL 20 MG TAB PO SCH (08:54)
[2016-05-13] MEDS: POLYETHYLENE GLYCOL 17 GM PACKET PO SCH (08:55)
[2016-05-13] MEDS: AMLODIPINE 5 MG TAB PO SCH (08:55)
[2016-05-13] MEDS: METOPROLOL 100 MG TAB PO SCH (09:01)
[2016-05-13 09:05] VITALS: PULSE 80
[2016-05-13 10:53] LABS: EOSINOPHILS # 0.1 10^3/ul (0.0-0.5); LYMPHOCYTES # 0.4 10^3/ul (0.8-2.9); NEUTROPHIL # 1.3 10^3/ul (1.6-7.5)
--- NOTE | 2016-05-13 13:55 | CONS ---
Date/Time of Note Date/Time of Note DATE: 05/13/16 TIME: 13:54 Consult Date/Type/Reason Admit Date/Time Apr 10, 2016 at 16:55 Initial Consult Date 04/11/16 Type of Consultation: ID Ordering Provider: LAUREL ANDERSON Subjective alert, feels good, no fevers, nad Objective Vital Signs Date Time Temp Pulse Resp B/P Pulse Ox O2 Delivery O2 Flow Rate FiO2 05/13/16 08:08 98.1 89 18 114/70 98 05/10/16 20:10 Room Air Intake and Output 05/12/16 05/12/16 05/13/16 15:00 23:00 07:00 Intake Total 200 ml 1200 ml Output Total 1150 ml Balance 200 ml 50 ml Results/Medications Result Diagram: 05/13/16 0440 05/13/16 0440 Results 24 hrs Laboratory Tests Test 05/12/16 18:18 05/12/16 18:21 05/12/16 21:27 05/13/16 04:40 Bedside Glucose 170 189 169 Alanine Aminotransferase (ALT/SGPT) 24 Albumin 3.0 L Albumin/Globulin Ratio 0.83 Alkaline Phosphatase 103 Anion Gap 15 Aspartate Amino Transf (AST/SGOT) 15 Band Neutrophils % 12.0 H Blood Morphology Comment Blood Urea Nitrogen 13 Calcium Level 8.1 L Carbon Dioxide Level 28 Chloride Level 107 Creatinine 1.14 Differential Comment MANUAL DIFF Direct Bilirubin 0.00 Eosinophils # 0.1 Eosinophils % 6.0 Globulin 3.60 H Glucose Level 80 # Hematocrit 25.0 L Hemoglobin 8.4 L Indirect Bilirubin 0.3 Lymphocytes # 0.4 L Lymphocytes % 20.0 Mean Corpuscular Hemoglobin 30.4 Mean Corpuscular Hemoglobin Concent 33.4 Mean Corpuscular Volume 91.2 Mean Platelet Volume 8.9 Metamyelocytes # 0.0 Metamyelocytes % 1.0 H Monocytes # 0.0 L Monocytes % 1.0 Neutrophils # 1.3 L Neutrophils % 60.0 Nucleated Red Blood Cells % 2.0 H Platelet Count 70 #L Potassium Level 3.5 Red Blood Count 2.75 L Red Cell Distribution Width 22.3 H Sodium Level 146 H Total Bilirubin 0.3 Total Protein 6.6 White Blood Count 2.2 L Test 05/13/16 08:17 Bedside Glucose 77 Medications Current Medications Ondansetron HCl (Zofran Inj) 4 mg Q6H PRN IV NAUSEA AND/OR VOMITING Last administered on 04/30/16at 05:51; Admin Dose 4 MG; Start 04/10/16 at 19:00 Nitroglycerin (Nitroglycerin (Sl Tab) 0.4 Mg) 1 tab Q5M PRN SL CHEST PAIN; Start 04/10/16 at 19:00 Acetaminophen (Tylenol Tab) 650 mg Q6H PRN PO PAIN LEVEL 1-3 OR FEVER Last administered on 05/05/16at 10:07; Admin Dose 650 MG; Start 04/10/16 at 19:00 Acetaminophen/ Hydrocodone Bitart ([place] (5/325)) 1 tab Q6H PRN PO PAIN LEVEL 4 -6 Last administered on 04/14/16at 23:25; Admin Dose 1 TAB; Start 04/10/16 at 19: 00 Acetaminophen/ Hydrocodone Bitart ([place] (5/325)) 2 tab Q6H PRN PO PAIN LEVEL 7 -10 Last administered on 05/12/16 21:36; Admin Dose 2 TAB; Start 04/10/16 at 19: 00 Morphine Sulfate (morphine) 2 mg Q4H PRN IV PAIN LEVEL 7-10 Last administered on 04/29/16at 20:57; Admin Dose 2 MG; Start 04/10/16 at 19:00 Magnesium Hydroxide (Milk Of Mag) 30 ml DAILY PRN PO CONSTIPATION Last administered on 05/13/16 06:08; Admin Dose 30 ML; Start 04/10/16 at 19:00 Bisacodyl (Dulcolax Supp) 10 mg DAILY PRN [place] CONSTIPATION; Start 04/10/16 at 19 :00 Pantoprazole (Protonix Tab) 40 mg DAILY@06 PO Last administered on 05/13/16 06: 08; Admin Dose 40 MG; Start 04/11/16 at 06:00 Miscellaneous Information 1 ea NOTE XX ; Start 04/10/16 at 19:00 Glucose (Glutose) 15 gm Q15M PRN PO DECREASED GLUCOSE; Start 04/10/16 at 19:00 Glucose (Glutose) 22.5 gm Q15M PRN PO DECREASED GLUCOSE; Start 04/10/16 at 19: 00 Dextrose (D50w Syringe) 25 ml Q15M PRN IV DECREASED GLUCOSE; Start 04/10/16 at 19:00 Dextrose (D50w Syringe) 50 ml Q15M PRN IV DECREASED GLUCOSE; Start 04/10/16 at 19:00 Glucagon (Glucagen) 1 mg Q15M PRN IM DECREASED GLUCOSE; Start 04/10/16 at 19:00 Glucose (Glutose) 15 gm Q15M PRN BUCCAL DECREASED GLUCOSE; Start 04/10/16 at 19 :00 Metoprolol Tartrate (Lopressor) 100 mg BID PO Last administered on 05/13/16 09: 01; Admin Dose 100 MG; Start 04/11/16 at 09:00 Docusate Sodium (Colace) 100 mg Q12H PO Last administered on 05/13/16 06:08; Admin Dose 100 MG; Start 04/11/16 at 19:00 Polyethylene Glycol (Miralax) 17 gm DAILY PO Last administered on 05/13/16 08: 55; Admin Dose 17 GM; Start 04/11/16 at 13:00 Levofloxacin (Levaquin) 500 mg DAILY@06 PO Last administered on 05/13/16 06:08 ; Admin Dose 500 MG; Start 04/15/16 at 14:00 Collagenase (Santyl) 1 applic DAILY TOP Last administered on 05/12/16 15:53; Admin Dose 1 APPLIC; Start 04/17/16 at 16:00 Allopurinol (Zyloprim) 300 mg DAILY PO Last administered on 05/13/16 08:50; Admin Dose 300 MG; Start 04/18/16 at 09:30 IV Flush (NS 10 ml) 10 ml PRN PRN IV IV PROTOCOL Last administered on at 00:35; Admin Dose 10 ML; Start 04/18/16 at 11:30 Dexamethasone (Decadron) 10 mg Q4H PRN IV REACTION Last administered on at 16:58; Admin Dose 10 MG; Start 04/18/16 at 13:00 Diphenhydramine HCl 25 mg 25 mg Q4H PRN IV ALLERGIC REACTION Last administered on 04/24/16at 16:42; Admin Dose 25 MG; Start 04/18/16 at 13:00 Ondansetron HCl/ Sodium Chloride (Zofran Inj/NS) 54 ml @ 110 mls/hr Q8H PRN IV NAUSEA Last administered on 04/30/16at 09:51; Admin Dose 110 MLS/HR; Start 04/18/16 at 13:00 Amlodipine Besylate (Norvasc) 5 mg BID PO Last administered on 05/13/16 08:55; Admin Dose 5 MG; Start 04/21/16 at 21:00 Lisinopril (Zestril) 20 mg BID PO Last administered on 05/13/16 08:54; Admin Dose 20 MG; Start 04/21/16 at 21:00 Hydralazine HCl 10 mg 10 mg Q8H PRN IV ELEVATED BLOOD PRESSURE; Start at 12:00 Filgrastim/ Dextrose (Neupogen/D5W) 51.6 ml @ 103.2 mls/ hr DAILY@17 IVPB Last administered on 05/12/16 19:29; Admin Dose 103.2 MLS/HR; Start 04/25/16 at 17:00 Fluconazole (Diflucan) 100 mg DAILY PO Last administered on 05/13/16 08:54; Admin Dose 100 MG; Start 04/27/16 at 09:00 Acyclovir (Zovirax) 400 mg BID PO Last administered on 05/13/16 08:54; Admin Dose 400 MG; Start 04/26/16 at 11:45 Insulin Glargine (Lantus) 40 unit QHS SC Last administered on 05/12/16 21:33; Admin Dose 40 UNIT; Start 05/02/16 at 21:00 Prednisolone/ Sulfacetamide 2 drop 2 drop QID BOTH EYES Last administered on 08:50; Admin Dose 2 DROP; Start 05/02/16 at 17:00 Vancomycin HCl/ Sodium Chloride (Vancocin/NS) 150 ml @ 75 mls/hr Q12H IVPB Last administered on 05/12/16 23:37; Admin Dose 75 MLS/HR; Start 05/08/16 at 11: 00 Miscellaneous Information (*Rx Drug Level Order Reminder*) 1 ONCE ONCE XX ; Start 05/13/16 at 22:00; Stop 05/13/16 at 22:01 Assessment/Plan Chief Complaint/Hosp Course ANTIMICROBIALS: 1. Vancomycin 2. Levaquin. 3. Diflucan 4. Acyclovir Indwelling: LUE PICC 04/18/16 PHYSICAL EXAMINATION: GENERAL: Obese, well-developed, middle-aged man who is awake, in no distress. HEENT: Head atraumatic, normocephalic. Sclerae anicteric. Buccal mucosa pink. NECK: Supple. Trachea midline. LUNGS: Chest rise symmetrical. Breath sounds clear. HEART: S1, S2. ABDOMEN: Soft. Bowel tones present. EXTREMITIES: No cyanosis ASSESSMENT: 1. 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 4. Diabetes. 5. Hypertension. 6. Legally blind. PLAN: Remains stable, continue present care, complete abx for OM, pending dc plan DW staff Problems: JUVENAL SANCHEZ NP May 13, 2016 13:55
[2016-05-13] MEDS: COLLAGENASE 30 GM TUBE TOP SCH (14:36)
[2016-05-13] MEDS: VANCOMYCIN 750 MG in SOD CHLORIDE 0.9% 150 ML IVPB SCH (14:36)
[2016-05-13] MEDS: DEXTROSE 5% IVPB SCH (17:00)
[2016-05-13] MEDS: FILGRASTIM IVPB SCH (17:00)
[2016-05-13] MEDS ORDERED: ACYC400T2 PO (17:54)
[2016-05-13] MEDS ORDERED: ZOLP5TAB PO (17:54)
[2016-05-13] MEDS ORDERED: DOCU-144 PO (17:54)
[2016-05-13] MEDS ORDERED: HYDR-3498 PO (17:54)
[2016-05-13] MEDS ORDERED: NOVO3I SC (17:54)
[2016-05-13] MEDS ORDERED: PANT40TA4 PO (17:54)
[2016-05-13] MEDS ORDERED: Vancomycin Iv Per Pharmacy XX (17:54)
[2016-05-13] MEDS ORDERED: LISI20TA11 PO (17:54)
[2016-05-13] MEDS ORDERED: ALLO300T2 PO (17:54)
[2016-05-13] MEDS ORDERED: METO-407 PO (17:54)
[2016-05-13] MEDS ORDERED: [UNRECOGNIZED DRUG - OTHER] BOTH EYES (17:54)
[2016-05-13] MEDS ORDERED: LANT3I SC (17:54)
[2016-05-13] MEDS ORDERED: LEVO500T72 PO (17:54)
[2016-05-13] MEDS ORDERED: FLUC100T39 PO (17:54)
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
== END 2016-05-13 19:05 | DRG 841 ==
LOC: FTE 11:20 → TEL 16:55 → MS1 04-15 15:17
PROVIDERS: ADMIT Internal Medicine; ATTEND Internal Medicine
PROC: 07DR3ZX Extraction of Iliac Bone Marrow, Percutaneous Approach, Diagnostic (ICD-10-PCS; 2016-04-13)
PROC: 3E04305 Introduction of Other Antineoplastic into Central Vein, Percutaneous Approach (ICD-10-PCS; principal; 2016-04-18)
PROC: 02HV33Z Insertion of Infusion Device into Superior Vena Cava, Percutaneous Approach (ICD-10-PCS; 2016-04-18)
DX: C91.40 Hairy cell leukemia not having achieved remission (principal); I47.2 Ventricular tachycardia; I42.9 Cardiomyopathy, unspecified; R65.10 Systemic inflammatory response syndrome (SIRS) of non-infectious origin without acute organ dysfunction; M86.171 Other acute osteomyelitis, right ankle and foot; E11.42 Type 2 diabetes mellitus with diabetic polyneuropathy; E11.621 Type 2 diabetes mellitus with foot ulcer; D70.1 Agranulocytosis secondary to cancer chemotherapy; E11.69 Type 2 diabetes mellitus with other specified complication; I10 Essential (primary) hypertension; H54.8 Legal blindness, as defined in USA; I25.10 Atherosclerotic heart disease of native coronary artery without angina pectoris; K59.00 Constipation, unspecified; E11.65 Type 2 diabetes mellitus with hyperglycemia; E11.319 Type 2 diabetes mellitus with unspecified diabetic retinopathy without macular edema; R21 Rash and other nonspecific skin eruption; L97.522 Non-pressure chronic ulcer of other part of left foot with fat layer exposed; B34.9 Viral infection, unspecified; T45.1X5A Adverse effect of antineoplastic and immunosuppressive drugs, initial encounter; Y92.238 Other place in hospital as the place of occurrence of the external cause; R50.81 Fever presenting with conditions classified elsewhere; L03.031 Cellulitis of right toe; E87.6 Hypokalemia; E83.42 Hypomagnesemia; Z79.4 Long term (current) use of insulin; Z91.19 Patient's noncompliance with other medical treatment and regimen
CPT/HCPCS: 36415; 36430; 36569; 71010; 73630; 73718; 74176; 76937; 77012; 80048; 80053; 80061; 80076; 80202; 81001; 81003; 82270; 82550; 82553; 82607; 82668; 82728; 82746; 82962; 83010; 83036; 83540; 83605; 83615; 83690; 83735; 83880; 84100; 84439; 84443; 84484; 85014; 85018; 85025; 85045; 85049; 85362; 85378; 85384; 85610; 85651; 85670; 85730; 86140; 86644; 86703; 86850; 86900; 86901; 86920; 87040; 87081; 87086; 88305; 88313; 88341; 88342; 90686; 93005; 93306; 93312; 96374; 96375; 96376; 97001; 97110; 97116; 97530; J1100; J1200; J1815; J2250; J2270; J2405; J2543; J2997; J3010; J3370; J3475; J7030; J7040; J7050; J9065; J9310; P9016; P9035

== ENCOUNTER 2016-08-06 16:15 | Emergency (ER) | payer OTHER ==
[~2016-08-06] VITALS: Ht 188 cm; Wt 113.6 kg
[~2016-08-06 16:15] MED LIST changes: +ACYC400T2 PO; +ALLO300T2 PO; -BACTDS PO; -BENA40TA41 PO; -CEPH-443 PO; +DOCU-144 PO; +FLUC100T39 PO; +HYDR-3498 PO; -INSU200I SQ; +LEVO500T72 PO; +LISI20TA11 PO; +NOVO3I SC; +PANT40TA4 PO; +Vancomycin Iv Per Pharmacy XX; +ZOLP5TAB PO; +[UNRECOGNIZED DRUG - OTHER] BOTH EYES
[2016-08-06 16:25] VITALS: Ht 188 cm; Wt 113.6 kg
--- NOTE | 2016-08-06 18:06 | RADRPT ---
PROCEDURE: Portable chest x-ray. CLINICAL INDICATION: Injury, chest pain. TECHNIQUE: Portable AP view of the chest. COMPARISON: 04/26/2016. FINDINGS: There is mild left basilar atelectasis. No pulmonary edema or conolidation is identified. The card iac silhouette is not enlarged. No pleural effusion is seen. There is no pneumothorax. No fractur e is identified. IMPRESSION: 1. No radiographic evidence of traumatic chest injury. RPTAT: HTAR .Frank Metz MD, Date Time Electronically viewed and signed by .Frank Metz MD, on 08/06/2016 18:06 .R/
--- NOTE | 2016-08-06 18:07 | RADRPT ---
PROCEDURE: Lumbar Spine. CLINICAL INDICATION: Trauma, back pain. TECHNIQUE: Three views of the lumbar spine. COMPARISON: None available FINDINGS: The lumbar lordosis is preserved without spondylolisthesis. The vertebral body heights are maintaine d. No acute fracture or subluxation is seen. There are no significant degenerative changes. IMPRESSION: 1. No acute fracture or subluxation. RPTAT: HTAR .Frank Metz MD, Date Time Electronically viewed and signed by .Frank Metz MD, on 08/06/2016 18:07 .R/
--- NOTE | 2016-08-06 18:08 | RADRPT ---
PROCEDURE: XR Cervical Spine. CLINICAL INDICATION: Neck pain. TECHNIQUE: Three views of the cervical spine. COMPARISON: None. FINDINGS: There is mild reversal of the cervical lordosis. No spondylolisthesis is seen. The vertebral body heights are maintained. No acute fracture or subluxation is identified. The prevertebral soft tiss ues are normal. There is moderate multilevel degenerative disk disease, most prominent at C5-C6. T he visualized aerodigestive tract is normal. IMPRESSION: 1. No acute fracture or subluxation of the cervical spine. 2. Mild reversal of the cervical lordosis. 3. Moderate multilevel degenerative disk disease, most prominent at C5-C6. RPTAT: HTAR .Frank Metz MD, Date Time Electronically viewed and signed by .Frank Metz MD, on 08/06/2016 18:08 .R/
[2016-08-06] MEDS ORDERED: NAPR-260 PO (19:17)
[2016-08-06 19:45] VITALS: BP 143/95; PULSE 90; RESP 20
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
== END 2016-08-06 19:46 | disposition home or self-care (01) ==
LOC: FTE 16:15
DX: S39.92XA Unspecified injury of lower back, initial encounter (principal); I10 Essential (primary) hypertension; E11.9 Type 2 diabetes mellitus without complications; W22.8XXA Striking against or struck by other objects, initial encounter; Y92.89 Other specified places as the place of occurrence of the external cause; Z79.4 Long term (current) use of insulin; Z79.84 Long term (current) use of oral hypoglycemic drugs
CPT/HCPCS: 71010; 72040; 72100; Z7502

== ENCOUNTER 2018-08-29 02:44 | Inpatient (IN) | payer BC, OTHER ==
[~2018-08-29] VITALS: Ht 188 cm; Wt 116.0 kg
[~2018-08-29 02:44] MED LIST changes: -HYDR-3498 PO; +HYDR-3601 PO; +LEVO500T48 PO; -LEVO500T72 PO; +LISI-471 PO; -LISI20TA11 PO; +NAPR-985 PO
[2018-08-29] MEDS ORDERED: morphine 4 MG/ML VIAL IV STA (03:06)
[2018-08-29] MEDS ORDERED: SOD CHLORIDE 0.9% 500 ML IV STA (03:06)
[2018-08-29] MEDS ORDERED: ONDANSETRON 4 MG INJ IV STA (03:06)
[2018-08-29] MEDS ORDERED: INSULIN REGULAR, HUMAN 100 UNIT/1 ML 3ML VIAL SC ONE (04:30)
[2018-08-29] MEDS ORDERED: PIPER-TAZO 3.375 GM IV (PMX) 100 ML IVPB ONE (04:30)
[2018-08-29] MEDS ORDERED: ALBUTEROL/IPRATROPIUM (NEB) 3 ML AMP HHN PRN (06:00)
[2018-08-29] MEDS ORDERED: NACL 0.9% 3 ML SYG IV SCH (06:00)
[2018-08-29] MEDS ORDERED: ZOLPIDEM 5 MG TAB PO PRN (06:00)
[2018-08-29] MEDS ORDERED: ONDANSETRON 4 MG INJ IV PRN (06:00)
[2018-08-29] MEDS ORDERED: INSULIN ASPART [NOVOLOG] 3 ML PEN SC SCH ×2 (08:00)
--- NOTE | 2018-08-29 08:08 | HP ---
Date/Time of Note Date/Time of Note DATE: 08/29/18 TIME: 08:02 Assessment/Plan VTE Prophylaxis Pharmacological prophylaxis: heparin Lines/Catheters IV Catheter Type (from Nrs): Saline Lock Assessment/Plan Assessment/Plan 1. Infected right great toe with osteomyelitis -IV antibiotic -ID and podiatry consult -Wound care consult and wound culture -MRI of the foot 2. Diabetes with hyperglycemia: No DKA -Continue insulin. Adjust as needed -Check A1c 3. 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 Hypertension: BP is in acceptable range. Continue home meds 5. Legal blindness: Supportive care Result Diagram: 08/29/18 0306 08/29/18 0306 Results 24hrs Laboratory Tests Test 08/29/18 03:06 08/29/18 04:50 White Blood Count 4.5 #L Red Blood Count 4.37 #L Hemoglobin 11.8 #L Hematocrit 38.3 #L Mean Corpuscular Volume 87.6 Mean Corpuscular Hemoglobin 27.0 L Mean Corpuscular Hemoglobin Concent 30.8 L Red Cell Distribution Width 13.2 # Platelet Count 335 Mean Platelet Volume 10.6 H Immature Granulocytes % 0.900 H Neutrophils % 65.2 Lymphocytes % 22.8 Monocytes % 8.4 Eosinophils % 2.0 Basophils % 0.7 Nucleated Red Blood Cells % 0.0 Immature Granulocytes # 0.040 H Neutrophils # 2.9 Lymphocytes # 1.0 Monocytes # 0.4 Eosinophils # 0.1 Basophils # 0.0 Nucleated Red Blood Cells # 0.0 Sodium Level 139 Potassium Level 5.1 Chloride Level 102 Carbon Dioxide Level 28 Anion Gap 9 Blood Urea Nitrogen 12 Creatinine 0.96 Est Glomerular Filtrat Rate mL/min > 60 Glucose Level 467 *H Calcium Level 9.3 Total Bilirubin 0.1 L Direct Bilirubin 0.00 Indirect Bilirubin 0.1 Aspartate Amino Transf (AST/SGOT) 23 Alanine Aminotransferase (ALT/SGPT) 9 L Alkaline Phosphatase 71 Total Protein 8.5 H Albumin 3.9 Globulin 4.60 H Albumin/Globulin Ratio 0.84 Lipase 30 Bedside Glucose 416 *H HPI/ROS Admit Date/Time Admit Date/Time Hx of Present Illness This is a 58-year-old male with a history of hairy cell leukemia, on remission, insulin-dependent diabetes, blindness, hypertension and history of right great and second toe infection who presents the ER complaining of right toe swelling and infection. He said this has been progressively getting worse for about a month. There is pus draining from his toe. Patient was admitted here in 2017 for right great and second toe infection patient however stated that it was only his second toe that was infected. Note that patient is legally blind. He said he saw his financial aid advisor about a week ago who told him that the toe was getting better. Patient actually disagrees and states that it has been getting worse. When he presented to the ER, his blood glucose was in the 400s. No DKA. Right foot x-ray shows the following 1. Osseous destruction of the right distal first metatarsal, the first proximal and distal phalanges consistent with osteomyelitis. Further evaluation with MRI examination is recommended. 2. Interval significant joint space loss involving the first metatarsophalangeal and first interphalangeal joints. 3. Diffuse soft tissue swelling of the dorsal midfoot right first digit. PMH/Family/Social Past Medical History Medical History: other (See HPI) Medications Current Medications IV Flush (NS 3 ml) 3 ml PER PROTOCOL IV ; Start 08/29/18 at 06:00 Ondansetron HCl (Zofran Inj) 4 mg Q6H PRN IV NAUSEA/VOMITING; Start 08/29/18 at 06:00 Acetaminophen (Tylenol Tab) 650 mg Q6H PRN PO .PAIN 1-3 OR TEMP; Start 08/29/18 at 06:00 Heparin Sodium (Porcine) (Heparin (5000 Units/1ml)) 5,000 unit Q12 SC ; Start 08/29/18 at 09:00 Albuterol/ Ipratropium (Duoneb) 3 ml Q2H RESP THERAPY PRN HHN SHORTNESS OF BREATH; Start 08/29/18 at 06:00 Diagnostic Test (Pha) (Accu-Chek) 1 ea 02 XX ; Start 08/30/18 at 02:00 Insulin Aspart (Novolog Insulin Pen) NOVOLOG *MODERATE* ALGORITHM WITH MEALS BEDTIME SC ; Start 08/29/18 at 08:00 Allopurinol (Zyloprim) 300 mg DAILY PO ; Start 08/29/18 at 09:00 Amlodipine Besylate (Norvasc) 10 mg DAILY PO ; Start 08/29/18 at 09:00 Docusate Sodium (Colace) 100 mg Q12 PO ; Start 08/29/18 at 09:00 Insulin Aspart (Novolog Insulin Pen) 6 unit WITH MEALS SC ; Start 08/29/18 at 08:00 Insulin Glargine (Lantus) 40 units QHS SC ; Start 08/29/18 at 21:00 Levofloxacin (Levaquin) 500 mg DAILY@06 PO ; Start 08/29/18 at 06:00 Lisinopril (Zestril) 20 mg BID PO ; Start 08/29/18 at 09:00 Metoprolol Tartrate (Lopressor) 100 mg BID PO ; Start 08/29/18 at 09:00 Pantoprazole (Protonix Tab) 40 mg DAILY@06 PO ; Start 08/29/18 at 06:00 Prednisolone/ Sulfacetamide (Blephamide Oph) 2 drop QID BOTH EYES ; Start 08/29/18 at 09:00 Zolpidem Tartrate (Ambien) 5 mg HS MAY REPEAT X 1 PRN PO INSOMNIA; Start at 06:00 Coded Allergies: No Known Allergy (Unverified , 02/23/16) Past Surgical History Past Surgical Hx: other (HPI) Family History Significant Family History: no pertinent family hx Social History Alcohol Use: none Smoking Status: Never smoker Drug Use: none Exam/Review of Systems Vital Signs Vitals Vital Signs Date Temp Pulse Resp B/P (MAP) Pulse Ox O2 O2 Flow FiO2 Time Delivery Rate 08/29/18 79 20 137/80 100 Room Air 2.0 06:02 (99) 08/29/18 97.2 02:46 Exam Constitutional: other (No acute distress) Head: normocephalic, atraumatic Respiratory: clear to auscultation Cardiovascular: regular rate and rhythm, nl pulses Gastrointestinal: soft, non-tender Extremities: other (Right great toe swelling with pus draining from it. No tenderness) DAPHNE MONTEZ MD Aug 29, 2018 08:08
[2018-08-29] MEDS: DOCUSATE SODIUM 100 MG CAP PO SCH ×2 (09:00→21:00)
[2018-08-29] MEDS: LEVOFLOXACIN 500 MG TAB PO SCH (10:07)
[2018-08-29] MEDS: ALLOPURINOL 300 MG TAB PO SCH (10:07)
[2018-08-29] MEDS: AMLODIPINE 10 MG TAB PO SCH (10:08)
[2018-08-29] MEDS: LISINOPRIL 20 MG TAB PO SCH ×2 (10:08→21:56)
[2018-08-29] MEDS: METOPROLOL 100 MG TAB PO SCH ×2 (10:09→23:20)
[2018-08-29] MEDS: PANTOPRAZOLE (EC) 40 MG TAB PO SCH (10:10)
[2018-08-29] MEDS: HEPARIN 5,000 UNIT/1 ML VIAL SC SCH ×2 (10:10→22:03)
[2018-08-29] MEDS: ACETAMINOPHEN 325 MG TAB PO PRN ×2 (10:21→21:55)
[2018-08-29] MEDS ORDERED: VANCOMYCIN IV PER PHARMACY XX SCH (13:30)
[2018-08-29] MEDS: INSULIN GLARGINE [LANTus] (100 UNITS/ML) SYG SC SCH ×2 (13:30→21:00)
--- NOTE | 2018-08-29 14:00 | CONS ---
DATE OF ADMISSION: 08/29/2018 DATE OF CONSULTATION: 08/29/2018 TYPE OF CONSULTATION: Infectious disease. REASON FOR CONSULTATION: Antibiotic management. HISTORY OF PRESENT ILLNESS: Luis Thomas is a 58-year-old male who comes in with: 1. History of hairy cell leukemia in remission. 2. Insulin-dependent diabetes mellitus. 3. Blindness. 4. Hypertension. 5. Right great toe and 2nd toe infection. The patient presents to the emergency room with right toe swelling and infection which has been getti ng worse for about this last month. There is pus draining from his toe. He was seen in 2017 for rig ht great toe and 2nd toe infection; however stated that it was only the 2nd toe that was infected the n. He saw his obstetrical nurse about a week ago and at that time the toe was slightly better, but he feels it has been getting worse. In the emergency room, his blood sugar was in the 400s, no DKA. Right f oot shows osseous destruction of the right distal 1st metatarsal, 1st proximal distal phalanges consi stent with osteomyelitis. Further evaluation with MRI exam is recommended. Interval significant osorio nt space loss involving the 1st joints, diffuse soft tissue swelling of the dorsal mid foot rig ht 1st digit. PAST MEDICAL HISTORY: As outlined. FAMILY HISTORY: Noncontributory. SOCIAL HISTORY: Does not smoke, drink or abuse drugs. ALLERGIES: NONE TO PENICILLIN, SULFA OR FOODS. MEDICATIONS: Per chart. REVIEW OF SYSTEMS: As per HPI. PHYSICAL EXAMINATION: GENERAL: The patient is no acute distress. VITAL SIGNS: Stable. He is afebrile. SKIN: Without generalized rash. HEENT: Within normal limits. NECK: Supple. LYMPH NODES: None palpable. CHEST: Decreased breath sounds at the bases. HEART: Without murmur or gallop. ABDOMEN: Soft, nontender without organosplenomegaly or masses. EXTREMITIES: Right great toe is swollen with pus draining from it. It is not tender. RECTAL AND GENITAL: Deferred. NEUROLOGICAL: No focal neurological abnormality. ANCILLARY LABORATORY DATA: White count is 4.5 with 65% neutrophils, H and H of 11.8 and 38.3, platel et count 335,000. BUN and creatinine is 12/0.96, glucose 467, 416 and now 276. IMPRESSION AND PLAN: The patient has osteomyelitis of the toes. He is on vancomycin and Zosyn. An MRI scan was scheduled. He is to be seen by podiatry. I will dictate my findings to the hospitalist and to podiatry. Dictated By: REJI GLORIA MD, JD/JOSE Conf#: [id number] DID#: [id number] CC: KRISTIAN HANSEN MD;*EndCC*
--- NOTE | 2018-08-29 14:39 | QN ---
Documentation Comment 58-year-old male with diabetes, legally blind, here with worsening right great toe draining ulcer. Will request podiatry, ID consultation. Obtain MRI to rule out osteo. Continue broad-spectrum IV antimicrobials. Aggressive diabetes management with basal/bolus insulin with diet control. Arterial studies to rule out PVD and vascular consult if indicated. Wound care and wound cultures. Patient was seen in collaboration with Dr. Bauer. CINTIA JENSEN NP Aug 29, 2018 14:39
[2018-08-29] MEDS ORDERED: VANCOMYCIN HCL 2 GM in SOD CHLORIDE 0.9% 500 ML IVPB SCH ×4 (15:00)
[2018-08-29 15:33] VITALS: BP 144/82; PULSE 83; RESP 16
[2018-08-29 15:55] VITALS: Ht 188 cm; Wt 116.0 kg
[2018-08-29] MEDS: PREDNISOLONE/SULFACETAMIDE 5 ML OPH BOTH EYES SCH ×2 (17:00→20:26)
[2018-08-29] MEDS: PIPER-TAZO 3.375 GM IV (PMX) 100 ML IVPB SCH ×2 (17:53→23:28)
[2018-08-29] MEDS: INSULIN ASPART [NOVOLOG] 3 ML PEN SC SCH ×3 (17:58→22:01)
[2018-08-29 20:01] VITALS: BP 124/83; PULSE 90; RESP 16
--- NOTE | 2018-08-29 20:04 | CONS ---
Consultation Date/Type/Reason Admit Date/Time Aug 29, 2018 at 04:44 Initial Consult Date Date/Time of Note DATE: 08/29/18 TIME: 20:04 Exam/Review of Systems Exam Vitals Vital Signs Date Temp Pulse Resp B/P (MAP) Pulse Ox O2 O2 Flow FiO2 Time Delivery Rate 08/29/18 98.1 83 16 144/82 97 Room Air 15:33 (102) 08/29/18 2.0 06:02 Results Result Diagram: 08/29/18 0306 08/29/18 0306 Results 24hrs Laboratory Tests Test 08/29/18 03:06 08/29/18 04:50 08/29/18 10:20 08/29/18 17:57 White Blood Count 4.5 #L Red Blood Count 4.37 #L Hemoglobin 11.8 #L Hematocrit 38.3 #L Mean Corpuscular 87.6 Volume Mean Corpuscular 27.0 L Hemoglobin Mean Corpuscular 30.8 L Hemoglobin Concent Red Cell 13.2 # Distribution Width Platelet Count 335 Mean Platelet Volume 10.6 H Immature 0.900 H Granulocytes % Neutrophils % 65.2 Lymphocytes % 22.8 Monocytes % 8.4 Eosinophils % 2.0 Basophils % 0.7 Nucleated Red Blood 0.0 Cells % Immature 0.040 H Granulocytes # Neutrophils # 2.9 Lymphocytes # 1.0 Monocytes # 0.4 Eosinophils # 0.1 Basophils # 0.0 Nucleated Red Blood 0.0 Cells # Sodium Level 139 Potassium Level 5.1 Chloride Level 102 Carbon Dioxide Level 28 Anion Gap 9 Blood Urea Nitrogen 12 Creatinine 0.96 Est Glomerular > 60 Filtrat Rate mL/min Glucose Level 467 *H Calcium Level 9.3 Total Bilirubin 0.1 L Direct Bilirubin 0.00 Indirect Bilirubin 0.1 Aspartate Amino 23 Transf (AST/SGOT) Alanine 9 L Aminotransferase (AL T/SGPT) Alkaline Phosphatase 71 Total Protein 8.5 H Albumin 3.9 Globulin 4.60 H Albumin/Globulin 0.84 Ratio Lipase 30 Bedside Glucose 416 *H 276 H 123 Medications Medication Current Medications IV Flush (NS 3 ml) 3 ml PER PROTOCOL IV ; Start 08/29/18 at 06:00 Ondansetron HCl (Zofran Inj) 4 mg Q6H PRN IV NAUSEA/VOMITING; Start 08/29/18 at 06:00 Acetaminophen (Tylenol Tab) 650 mg Q6H PRN PO .PAIN 1-3 OR TEMP Last administered on 08/29/18 10:21; Admin Dose 650 MG; Start 08/29/18 at 06:00 Heparin Sodium (Porcine) (Heparin (5000 Units/1ml)) 5,000 unit Q12 SC Last administered on 08/29/18 10:10; Admin Dose 5,000 UNIT; Start 08/29/18 at 09:00 Albuterol/ Ipratropium (Duoneb) 3 ml Q2H RESP THERAPY PRN HHN SHORTNESS OF BREATH; Start 08/29/18 at 06:00 Diagnostic Test (Pha) (Accu-Chek) 1 ea 02 XX ; Start 08/30/18 at 02:00 Allopurinol (Zyloprim) 300 mg DAILY PO Last administered on 08/29/18 10:07; Admin Dose 300 MG; Start 08/29/18 at 09:00 Amlodipine Besylate (Norvasc) 10 mg DAILY PO Last administered on 08/29/18 10:08; Admin Dose 10 MG; Start 08/29/18 at 09:00 Docusate Sodium (Colace) 100 mg Q12 PO ; Start 08/29/18 at 09:00 Levofloxacin (Levaquin) 500 mg DAILY@06 PO Last administered on 08/29/18 10:07; Admin Dose 500 MG; Start 08/29/18 at 06:00 Lisinopril (Zestril) 20 mg BID PO Last administered on 08/29/18 10:08; Admin Dose 20 MG; Start 08/29/18 at 09:00 Metoprolol Tartrate (Lopressor) 100 mg BID PO Last administered on 08/29/18 10:09; Admin Dose 100 MG; Start 08/29/18 at 09:00 Pantoprazole (Protonix Tab) 40 mg DAILY@06 PO Last administered on 08/29/18 10:10; Admin Dose 40 MG; Start 08/29/18 at 06:00 Prednisolone/ Sulfacetamide (Blephamide Oph) 2 drop QID BOTH EYES ; Start 08/29/18 at 09:00 Zolpidem Tartrate (Ambien) 5 mg HS MAY REPEAT X 1 PRN PO INSOMNIA; Start at 06:00 Insulin Aspart (Novolog Insulin Pen) 12 unit WITH MEALS SC Last administered on 08/29/18at 18:27; Admin Dose 12 UNIT; Start 08/29/18 at 18:00 Insulin Glargine (Lantus) 40 units QHS SC ; Start 08/29/18 at 13:30 Piperacillin Sod/ Tazobactam Sod 100 ml @ 200 mls/hr Q6 IVPB Last administered on 08/29/18at 17:53; Admin Dose 200 MLS/HR; Start 08/29/18 at 14:23 Vancomycin HCl (Vanco Iv Per Pharmacy) VANCOMYCIN PER PHARMACY PER PROTOCOL XX ; Start 08/29/18 at 13:30 Insulin Aspart (Novolog Insulin Pen) NOVOLOG *MILD* ALGORITHM WITH MEALS BEDTIME SC ; Start 08/29/18 at 18:00 Vancomycin HCl 1.5 gm/Sodium Chloride 250 ml @ 83.333 mls/ hr Q12H IVPB ; Start 08/30/18 at 05:00 Vancomycin HCl 2 gm/Sodium Chloride 500 ml @ 125 mls/hr 1500 IVPB Last administered on 08/29/18at 16:46; Admin Dose 125 MLS/HR; Start 08/29/18 at 15:00; Stop 08/29/18 at 23:59 YEN DUENAS DPM Aug 29, 2018 20:04
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
[2018-08-29] MEDS ORDERED: INSULIN GLARGINE [LANTus] (100 UNITS/ML) SYG SC SCH (21:00)
[2018-08-29] MEDS ORDERED: INSULIN GLARGINE [LANTus] (100 UNITS/ML) SYG SC ONE (23:00)
[2018-08-29] MEDS ORDERED: HYDROCODONE/APAP (5/325) TAB PO PRN (23:00)
[2018-08-30 01:40] VITALS: BP 116/77; PULSE 77; RESP 18
[2018-08-30] MEDS: ACCU-CHEK XX SCH (02:42)
[2018-08-30] MEDS: LEVOFLOXACIN 500 MG TAB PO SCH (05:31)
[2018-08-30] MEDS: VANCOMYCIN HCL 1.5 GM in SOD CHLORIDE 0.9% 250 ML IVPB SCH ×2 (05:31→16:49)
[2018-08-30] MEDS: PIPER-TAZO 3.375 GM IV (PMX) 100 ML IVPB SCH ×3 (05:31→18:02)
[2018-08-30] MEDS: PANTOPRAZOLE (EC) 40 MG TAB PO SCH (05:31)
[2018-08-30 07:49] VITALS: BP 129/86; PULSE 77; RESP 16
[2018-08-30] MEDS: INSULIN ASPART [NOVOLOG] 3 ML PEN SC SCH ×7 (08:15→20:48)
[2018-08-30] MEDS: PREDNISOLONE/SULFACETAMIDE 5 ML OPH BOTH EYES SCH ×4 (08:22→20:49)
[2018-08-30] MEDS: ALLOPURINOL 300 MG TAB PO SCH (08:23)
[2018-08-30] MEDS: AMLODIPINE 10 MG TAB PO SCH (08:23)
[2018-08-30] MEDS: METOPROLOL 100 MG TAB PO SCH ×2 (08:23→20:52)
[2018-08-30] MEDS: LISINOPRIL 20 MG TAB PO SCH ×2 (08:23→20:52)
[2018-08-30] MEDS: DOCUSATE SODIUM 100 MG CAP PO SCH ×3 (08:24→20:49)
[2018-08-30] MEDS: HEPARIN 5,000 UNIT/1 ML VIAL SC SCH ×2 (08:48→20:53)
--- NOTE | 2018-08-30 11:24 | PN ---
Date/Time of Note Date/Time of Note DATE: 08/30/18 TIME: 11:23 Assessment/Plan VTE Prophylaxis Risk score (from Ns)>0 risk: 2 SCD applied (from Ns): No SCD contraindicated: other Pharmacological prophylaxis: heparin Lines/Catheters IV [facility]ter Type [facility]from [facility] [place] [facility] Urinary Cath still in place: No Assessment/Plan Hospital Course SUBJECTIVE: No acute overnight episodes. OBJECTIVE: Vital signs-see below PHYSICAL EXAM: Constitutional: Adequately built,not in acute distress. HEENT: Head atraumatic and normocephalic. Eyes: Blind NECK: Supple without lymph node. CHEST: Clear and good breath sounds equally. No wheezing. No rhonchi. HEART: S1, S2. Regular rate and rhythm. ABDOMEN: Soft/non tender with no rebound tenderness. Bowel sounds were present. EXTREMITIES: Right big toe oozing purulent ulcer w/surrounding edema/erythema on rt foot/covered w/dressing. No cyanosis, clubbing or edema. NEUROLOGIC: Alert and oriented x3. No focal deficit. No sensory deficit. PSYCHOSOCIAL: No signs of depression. INTEGUMENTARY: No open wounds. ASSESSMENT AND PLAN:58-year-old male with diabetes, legally blind, here with worsening right great toe DM ulcer draining purulent.... Right foot DM ulcer W/ purulent ulceration of right big toe WITH osteomyelitis. -Status post excisional debridement of skin/subQ of the right hallux 08/29 -MRI noted. Continue wound care, broad-spectrum antimicrobials and PICC line in anticipation for long-term IV antibiotics. -Arterial study noted for significant stenosis of right infrapopliteal artery, vascular consult requested with Dr. Chavez. -Follow-up cultures-blood cultures growing gram-positive. Type 2 diabetes, poorly controlled -Blood sugar improved, needs more control. Uptitrate basal/bolus insulin. -Diabetic education Essential hypertension -Adequately controlled. Continue CCB/ACEi/BB Chronic normocytic anemia -Stable H&H. Continue monitoring. Legally blind Supportive care. Eyedrops as instructed. DVT prophylaxis: Heparin Disposition: Continue current management. Await for cultures. Follow-up vascular and podiatry recommendations. Patient was seen in collaboration with Dr. Bauer. Result Diagram: 08/30/18 0516 08/30/18 0516 Results 24hrs Laboratory Tests Test 08/29/18 17:57 08/29/18 21:57 08/29/18 22:25 08/29/18 22:45 Bedside Glucose 123 274 H 277 H Erythrocyte 43 H Sedimentation Rate Test 08/30/18 02:46 08/30/18 05:16 08/30/18 08:12 Bedside Glucose 230 H 204 White Blood Count 4.0 L Red Blood Count 4.31 L Hemoglobin 11.6 L Hematocrit 37.9 L Mean Corpuscular 87.9 Volume Mean Corpuscular 26.9 L Hemoglobin Mean Corpuscular 30.6 L Hemoglobin Concent Red Cell 13.5 Distribution Width Platelet Count 315 Mean Platelet Volume 10.0 Immature 1.200 H Granulocytes % Neutrophils % 68.9 Lymphocytes % 19.2 Monocytes % 7.5 Eosinophils % 2.7 Basophils % 0.5 Nucleated Red Blood 0.0 Cells % Immature 0.050 H Granulocytes # Neutrophils # 2.8 Lymphocytes # 0.8 Monocytes # 0.3 Eosinophils # 0.1 Basophils # 0.0 Nucleated Red Blood 0.0 Cells # Sodium Level 140 Potassium Level 4.9 Chloride Level 104 Carbon Dioxide Level 29 Anion Gap 7 Blood Urea Nitrogen 13 Creatinine 1.03 Est Glomerular > 60 Filtrat Rate mL/min Glucose Level 216 # Hemoglobin A1c 11.1 H Calcium Level 9.0 Phosphorus Level 4.0 Magnesium Level 1.9 Total Bilirubin 0.1 L Direct Bilirubin 0.00 Indirect Bilirubin 0.1 Aspartate Amino 20 Transf (AST/SGOT) Alanine 16 Aminotransferase (AL T/SGPT) Alkaline Phosphatase 64 Total Protein 7.3 # Albumin 3.4 Globulin 3.90 H Albumin/Globulin 0.87 Ratio Triglycerides Level 109 Cholesterol Level 161 LDL Cholesterol, 113 Calculated HDL Cholesterol 26 L Cholesterol/HDL 6.1 Ratio Exam/Review of Systems Exam Vitals Vital Signs Date Temp Pulse Resp B/P (MAP) Pulse Ox O2 O2 Flow FiO2 Time Delivery Rate 08/30/18 97.6 77 16 129/86 97 Room Air 07:49 (100) 08/29/18 2.0 06:02 Intake and Output 08/29/18 08/29/18 08/30/18 1414:59 22:59 06:59 IntakeIntake Total 1180 ml OutputOutput Total 450 ml BalanceBalance -450 ml 1180 ml Results Results 24hrs Laboratory Tests Test 08/29/18 17:57 08/29/18 21:57 08/29/18 22:25 08/29/18 22:45 Bedside Glucose 123 274 H 277 H Erythrocyte 43 H Sedimentation Rate Test 08/30/18 02:46 08/30/18 05:16 08/30/18 08:12 Bedside Glucose 230 H 204 White Blood Count 4.0 L Red Blood Count 4.31 L Hemoglobin 11.6 L Hematocrit 37.9 L Mean Corpuscular 87.9 Volume Mean Corpuscular 26.9 L Hemoglobin Mean Corpuscular 30.6 L Hemoglobin Concent Red Cell 13.5 Distribution Width Platelet Count 315 Mean Platelet Volume 10.0 Immature 1.200 H Granulocytes % Neutrophils % 68.9 Lymphocytes % 19.2 Monocytes % 7.5 Eosinophils % 2.7 Basophils % 0.5 Nucleated Red Blood 0.0 Cells % Immature 0.050 H Granulocytes # Neutrophils # 2.8 Lymphocytes # 0.8 Monocytes # 0.3 Eosinophils # 0.1 Basophils # 0.0 Nucleated Red Blood 0.0 Cells # Sodium Level 140 Potassium Level 4.9 Chloride Level 104 Carbon Dioxide Level 29 Anion Gap 7 Blood Urea Nitrogen 13 Creatinine 1.03 Est Glomerular > 60 Filtrat Rate mL/min Glucose Level 216 # Hemoglobin A1c 11.1 H Calcium Level 9.0 Phosphorus Level 4.0 Magnesium Level 1.9 Total Bilirubin 0.1 L Direct Bilirubin 0.00 Indirect Bilirubin 0.1 Aspartate Amino 20 Transf (AST/SGOT) Alanine 16 Aminotransferase (AL T/SGPT) Alkaline Phosphatase 64 Total Protein 7.3 # Albumin 3.4 Globulin 3.90 H Albumin/Globulin 0.87 Ratio Triglycerides Level 109 Cholesterol Level 161 LDL Cholesterol, 113 Calculated HDL Cholesterol 26 L Cholesterol/HDL 6.1 Ratio Medications Medication Current Medications IV Flush (NS 3 ml) 3 ml PER PROTOCOL IV ; Start 08/29/18 at 06:00 Ondansetron HCl (Zofran Inj) 4 mg Q6H PRN IV NAUSEA/VOMITING; Start 08/29/18 at 06:00 Acetaminophen (Tylenol Tab) 650 mg Q6H PRN PO .PAIN 1-3 OR TEMP Last adminis tered on 08/29/18at 21:55; Admin Dose 650 MG; Start 08/29/18 at 06:00 Heparin Sodium (Porcine) (Heparin (5000 Units/1ml)) 5,000 unit Q12 SC Last administered on 08/30/18at 08:48; Admin Dose 5,000 UNIT; Start 08/29/18 at 09:00 Albuterol/ Ipratropium (Duoneb) 3 ml Q2H RESP THERAPY PRN HHN SHORTNESS OF BREATH; Start 08/29/18 at 06:00 Diagnostic Test (Pha) (Accu-Chek) 1 ea 02 XX Last administered on 08/30/18 02:42; Admin Dose 1 EA; Start 08/30/18 at 02:00 Allopurinol (Zyloprim) 300 mg DAILY PO Last administered on 08/30/18 08:23; Admin Dose 300 MG; Start 08/29/18 at 09:00 Amlodipine Besylate (Norvasc) 10 mg DAILY PO Last administered on 08/30/18 08:23; Admin Dose 10 MG; Start 08/29/18 at 09:00 Docusate Sodium (Colace) 100 mg Q12 PO ; Start 08/29/18 at 09:00 Levofloxacin (Levaquin) 500 mg DAILY@06 PO Last administered on 08/30/18 05:31; Admin Dose 500 MG; Start 08/29/18 at 06:00 Lisinopril (Zestril) 20 mg BID PO Last administered on 08/30/18 08:23; Admin Dose 20 MG; Start 08/29/18 at 09:00 Metoprolol Tartrate (Lopressor) 100 mg BID PO Last administered on 08/30/18 08:23; Admin Dose 100 MG; Start 08/29/18 at 09:00 Pantoprazole (Protonix Tab) 40 mg DAILY@06 PO Last administered on 08/30/18 05:31; Admin Dose 40 MG; Start 08/29/18 at 06:00 Prednisolone/ Sulfacetamide (Blephamide Oph) 2 drop QID BOTH EYES ; Start 08/29/18 at 09:00 Zolpidem Tartrate (Ambien) 5 mg HS MAY REPEAT X 1 PRN PO INSOMNIA; Start 08/29/18 at 06:00 Insulin Aspart (Novolog Insulin Pen) 12 unit WITH MEALS SC Last administered on 08/30/18 08:15; Admin Dose 12 UNIT; Start 08/29/18 at 18:00 Insulin Glargine (Lantus) 40 units QHS SC ; Start 08/29/18 at 13:30 Piperacillin Sod/ Tazobactam Sod 100 ml @ 200 mls/hr Q6 IVPB Last administered on 08/30/18at 05:31; Admin Dose 200 MLS/HR; Start 08/29/18 at 14:23 Vancomycin HCl (Vanco Iv Per Pharmacy) VANCOMYCIN PER PHARMACY PER PROTOCOL XX ; Start 08/29/18 at 13:30 Insulin Aspart (Novolog Insulin Pen) NOVOLOG *MILD* ALGORITHM WITH MEALS BEDTIME SC Last administered on 08/30/18at 08:15; Admin Dose 2 UNIT; Start 08/29/18 at 18:00 Vancomycin HCl 1.5 gm/Sodium Chloride 250 ml @ 83.333 mls/ hr Q12H IVPB Last administered on 08/30/18at 05:31; Admin Dose 83.333 MLS/HR; Start 08/30/18 at 05:00 Acetaminophen/ Hydrocodone Bitart ([place] (5/325)) 1 tab Q4H PRN PO PAIN LEVEL 1-5; Start 08/29/18 at 23:00 Acetaminophen/ Hydrocodone Bitart ([place] (5/325)) 2 tab Q4H PRN PO MODERATE PAIN LEVEL 4-6; Start 08/29/18 at 23:00 CINTIA JENSEN NP Aug 30, 2018 11:24
[2018-08-30] MEDS ORDERED: LIDOCAINE 1% (MPF) 5 ML VIAL SC ONE (11:30)
[2018-08-30] MEDS: HYDROCODONE/APAP (5/325) TAB PO PRN (12:14)
[2018-08-30 14:30] VITALS: BP 129/82; PULSE 78; RESP 18
--- NOTE | 2018-08-30 14:54 | CONS ---
Assessment/Plan Assessment/Plan Hospital Course (Demo Recall) Patient is awake, looks comfortable denies pain, no fevers overnight. WBC 4 no shift no bands BUN 13 creatinine 1.03 Microbiology: Blood culture growing gram-positive cocci in pairs and clusters, wound culture pending Antimicrobials: Vancomycin, Zosyn Physical examination: Well-nourished well-developed middle-aged -[place] man who is alert in no distress. Patient is blind. Head atraumatic normocephalic neck is supple. Chest rise symmetrical, breath sounds diminished bases. Heart: S1-S2. Abdomen soft, bowel sounds present. Extremities with right foot erythema edema of right great toe Assessment: 1. Gram-positive cocci bacteremia, likely secondary to #2 2. Right foot cellulitis with osteomyelitis of great toe, status post I&D at bedside 3. Diabetes with diabetic neuropathy 4. Legally blind 5. Leukopenia and anemia Plan: Patient remains stable, on appropriate antibiotics, final cultures pending, we will repeat blood cultures today. Per podiatry note patient refused amputation therefore will require long-term antibiotics for osteomyelitis, likely intravenous. Final recommendations once we get final cultures Consultation Date/Type/Reason Admit Date/Time Aug 29, 2018 at 04:44 Initial Consult Date Type of Consult id Date/Time of Note DATE: 08/30/18 TIME: 14:54 Exam/Review of Systems Exam Vitals Vital Signs Date Temp Pulse Resp B/P (MAP) Pulse Ox O2 O2 Flow FiO2 Time Delivery Rate 08/30/18 97.6 77 16 129/86 97 Room Air 07:49 (100) 08/29/18 2.0 06:02 Intake and Output 08/29/18 08/29/18 08/30/18 1515:00 23:00 07:00 IntakeIntake Total 1180 ml OutputOutput Total 450 ml BalanceBalance -450 ml 1180 ml Results Result Diagram: 08/30/18 0516 08/30/18 0516 Results 24hrs Laboratory Tests Test 08/29/18 17:57 08/29/18 21:57 08/29/18 22:25 08/29/18 22:45 Bedside Glucose 123 274 H 277 H Erythrocyte 43 H Sedimentation Rate Test 08/30/18 02:46 08/30/18 05:16 08/30/18 08:12 08/30/18 12:09 Bedside Glucose 230 H 204 245 H White Blood Count 4.0 L Red Blood Count 4.31 L Hemoglobin 11.6 L Hematocrit 37.9 L Mean Corpuscular 87.9 Volume Mean Corpuscular 26.9 L Hemoglobin Mean Corpuscular 30.6 L Hemoglobin Concent Red Cell 13.5 Distribution Width Platelet Count 315 Mean Platelet Volume 10.0 Immature 1.200 H Granulocytes % Neutrophils % 68.9 Lymphocytes % 19.2 Monocytes % 7.5 Eosinophils % 2.7 Basophils % 0.5 Nucleated Red Blood 0.0 Cells % Immature 0.050 H Granulocytes # Neutrophils # 2.8 Lymphocytes # 0.8 Monocytes # 0.3 Eosinophils # 0.1 Basophils # 0.0 Nucleated Red Blood 0.0 Cells # Sodium Level 140 Potassium Level 4.9 Chloride Level 104 Carbon Dioxide Level 29 Anion Gap 7 Blood Urea Nitrogen 13 Creatinine 1.03 Est Glomerular > 60 Filtrat Rate mL/min Glucose Level 216 # Hemoglobin A1c 11.1 H Calcium Level 9.0 Phosphorus Level 4.0 Magnesium Level 1.9 Total Bilirubin 0.1 L Direct Bilirubin 0.00 Indirect Bilirubin 0.1 Aspartate Amino 20 Transf (AST/SGOT) Alanine 16 Aminotransferase (AL T/SGPT) Alkaline Phosphatase 64 Total Protein 7.3 # Albumin 3.4 Globulin 3.90 H Albumin/Globulin 0.87 Ratio Triglycerides Level 109 Cholesterol Level 161 LDL Cholesterol, 113 Calculated HDL Cholesterol 26 L Cholesterol/HDL 6.1 Ratio Medications Medication Current Medications IV Flush (NS 3 ml) 3 ml PER PROTOCOL IV ; Start 08/29/18 at 06:00 Ondansetron HCl (Zofran Inj) 4 mg Q6H PRN IV NAUSEA/VOMITING; Start 08/29/18 at 06:00 Acetaminophen (Tylenol Tab) 650 mg Q6H PRN PO .PAIN 1-3 OR TEMP Last administered on 08/29/18at 21:55; Admin Dose 650 MG; Start 08/29/18 at 06:00 Heparin Sodium (Porcine) (Heparin (5000 Units/1ml)) 5,000 unit Q12 SC Last a dministered on 08/30/18at 08:48; Admin Dose 5,000 UNIT; Start 08/29/18 at 09:00 Albuterol/ Ipratropium (Duoneb) 3 ml Q2H RESP THERAPY PRN HHN SHORTNESS OF BREATH; Start 08/29/18 at 06:00 Diagnostic Test (Pha) (Accu-Chek) 1 ea 02 XX Last administered on 08/30/18 02:42; Admin Dose 1 EA; Start 08/30/18 at 02:00 Allopurinol (Zyloprim) 300 mg DAILY PO Last administered on 08/30/18 08:23; Admin Dose 300 MG; Start 08/29/18 at 09:00 Amlodipine Besylate (Norvasc) 10 mg DAILY PO Last administered on 08/30/18 08:23; Admin Dose 10 MG; Start 08/29/18 at 09:00 Docusate Sodium (Colace) 100 mg Q12 PO ; Start 08/29/18 at 09:00 Levofloxacin (Levaquin) 500 mg DAILY@06 PO Last administered on 08/30/18 0 5:31; Admin Dose 500 MG; Start 08/29/18 at 06:00 Lisinopril (Zestril) 20 mg BID PO Last administered on 08/30/18 08:23; Admin Dose 20 MG; Start 08/29/18 at 09:00 Metoprolol Tartrate (Lopressor) 100 mg BID PO Last administered on 08/30/18 08:23; Admin Dose 100 MG; Start 08/29/18 at 09:00 Pantoprazole (Protonix Tab) 40 mg DAILY@06 PO Last administered on 08/30/18 05:31; Admin Dose 40 MG; Start 08/29/18 at 06:00 Prednisolone/ Sulfacetamide (Blephamide Oph) 2 drop QID BOTH EYES Last administered on 08/30/18 12:59; Admin Dose 2 DROP; Start 08/29/18 at 09:00 Zolpidem Tartrate (Ambien) 5 mg HS MAY REPEAT X 1 PRN PO INSOMNIA; Start 08/29/18 at 06:00 Piperacillin Sod/ Tazobactam Sod 100 ml @ 200 mls/hr Q6 IVPB Last administered on 08/30/18 12:07; Admin Dose 200 MLS/HR; Start 08/29/18 at 14:23 Vancomycin HCl (Vanco Iv Per Pharmacy) VANCOMYCIN PER PHARMACY PER PROTOCOL XX ; Start 08/29/18 at 13:30 Insulin Aspart (Novolog Insulin Pen) NOVOLOG *MILD* ALGORITHM WITH MEALS BEDTIME SC Last administered on 4/26/19at 12:21; Admin Dose 3 UNIT; Start 08/29/18 at 18:00 Vancomycin HCl 1.5 gm/Sodium Chloride 250 ml @ 83.333 mls/ hr Q12H IVPB Last administered on 08/30/18at 05:31; Admin Dose 83.333 MLS/HR; Start 08/30/18 at 05:00 Acetaminophen/ Hydrocodone Bitart ([place] (5/325)) 1 tab Q4H PRN PO PAIN LEVEL 1-5 Last administered on 08/30/18at 12:14; Admin Dose 1 TAB; Start 08/29/18 at 23 :00 Acetaminophen/ Hydrocodone Bitart ([place] (5/325)) 2 tab Q4H PRN PO MODERATE PAIN LEVEL 4-6; Start 08/29/18 at 23:00 Insulin Aspart (Novolog Insulin Pen) 15 unit WITH MEALS SC Last administered on 08/30/18at 12:20; Admin Dose 15 UNIT; Start 08/30/18 at 12:00 Insulin Glargine (Lantus) 48 units QHS SC ; Start 08/30/18 at 21:00 Miscellaneous Information (*Rx Drug Level Order Reminder*) VANCO TR LEVEL PRIOR... 0400 ONCE XX ; Start 08/31/18 at 04:00; Stop 08/31/18 at 04:01 Sodium Hypochlorite (Dakins Diluted ()) 1 applic DAILY TP ; Start 08/30/18 at 16:00 JUVENAL SANCHEZ NP Aug 30, 2018 14:54
--- NOTE | 2018-08-30 15:05 | CONS ---
DATE OF ADMISSION: 08/29/2018 DATE OF CONSULTATION: 08/30/2018 HISTORY OF PRESENT ILLNESS: Mr. Thomas is a 58-year-old diabetic line gentleman with hypertension, who was admitted with osteomyelitis and draining infection in the right 1st toe. He had some arteria l duplex that suggest tibial disease. The left lower extremity arterial duplex is normal. He says t his wound on the toe started about 6 weeks ago and had been seeing a blowing engineer in [place] and he skyler d it would have been getting better until a few days ago which just got much worse, started draining and so he came into the emergency room. He is a nonsmoker. 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 It is completely treated. PAST MEDICAL HISTORY: Significant for diabetes, hypertension, peripheral arterial disease, hairy sharifa l leukemia. MEDICATIONS: Consist of: 1. Vancomycin. 2. Insulin. 3. Zosyn. 4. Subcutaneous heparin. 5. Amlodipine. 6. Lisinopril. 7. Metoprolol. 8. Prednisone. 9. Zofran. 10. Levaquin. 11. Pantoprazole. 12. Ambien. ALLERGIES: HE HAS NO KNOWN DRUG ALLERGIES. SOCIAL HISTORY: He has never smoked, does not drink or use any illicit drugs. He is legally blind. He has basically no vision. 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 FAMILY HISTORY: Noncontributory. PAST SURGICAL HISTORY: He has never had any surgery in the past. REVIEW OF SYSTEMS: Denies any complaints really. Has no chest pain. No shortness of breath. No na usea, vomiting, diarrhea. No fever, no chills. No recent weight gain or weight loss. He is fully a mbulatory. He has some peripheral neuropathy, but relatively decent sensation in his feet. PHYSICAL EXAMINATION GENERAL: He is an elderly -[place] gentleman. He is completely blind. VITAL SIGNS: He has been afebrile. His blood pressure is 129/86, heart rate 77, respiratory rate 16 . He is 97% sat on room air. PERIPHERAL VASCULAR: He has 2+ carotid, radial and brachial pulses bilaterally. LUNGS: Clear. HEART: Regular rate and rhythm. ABDOMEN: Soft, nontender, nondistended. EXTREMITIES: He got 2+ femoral and popliteal pulses bilaterally. On the left, he has 2+ DP pulse. I do not feel PT very well. On the right, he has a good popliteal, but no DP or PT pulse. On the ri ght foot on the 1st toe, there is an opening at the top and bottom of the toe, right at the base, manuel ining serous fluid. On the toe, you can feel the bones crunching around when you bend the joints of the toes all eaten away on the inside. DIAGNOSTIC DATA: X-ray showed osteomyelitis confirmed on the MRI. Again, he had an arterial study o f lower extremities on the left that is normal with triphasic waveforms all the way down. On the rig ht, there are monophasic waveforms suggestive of infrapopliteal disease. IMPRESSION: Right 1st toe osteomyelitis. I am not sure if the toes are salvageable. He also has pe ripheral arterial disease. I am going to schedule for an arteriogram. He really wants to try and sa lvage the toes, so he is getting IV antibiotics and Dr. Duenas is involved for further podiatric c are. I think he would definitely help to improve his circulation as well. We are doing an angiogram and try to intervene and improve the flow to the foot and I will schedule him for that at next avail able appointment. Dictated By: DO BLAKE/JOSE Conf#: [id number] DID#: [id number] CC: CINTIA JENSEN NP; YEN DUENAS DPM; REJI GLORIA MD; DAPHNE MONTEZ MD;*[facility]*
[2018-08-30] MEDS: DAKINS 0.0125%(1/40) 473 ML SOLUTION TP SCH (16:34)
[2018-08-30 19:27] VITALS: BP 130/93; PULSE 85; RESP 18
[2018-08-30] MEDS: INSULIN GLARGINE [LANTus] (100 UNITS/ML) SYG SC SCH (20:55)
[2018-08-31] MEDS: PIPER-TAZO 3.375 GM IV (PMX) 100 ML IVPB SCH ×4 (00:14→18:41)
[2018-08-31 01:34] VITALS: BP 135/89; PULSE 81; RESP 18
[2018-08-31] MEDS: ACCU-CHEK XX SCH (02:00)
[2018-08-31] MEDS: HYDROCODONE/APAP (5/325) TAB PO PRN (04:42)
[2018-08-31] MEDS: LEVOFLOXACIN 500 MG TAB PO SCH (05:40)
[2018-08-31] MEDS: PANTOPRAZOLE (EC) 40 MG TAB PO SCH (05:41)
[2018-08-31] MEDS: VANCOMYCIN HCL 1.5 GM in SOD CHLORIDE 0.9% 250 ML IVPB SCH ×2 (06:27→17:17)
[2018-08-31] MEDS: ALLOPURINOL 300 MG TAB PO SCH (08:09)
[2018-08-31] MEDS: PREDNISOLONE/SULFACETAMIDE 5 ML OPH BOTH EYES SCH ×4 (08:13→21:11)
[2018-08-31] MEDS: AMLODIPINE 10 MG TAB PO SCH (08:13)
[2018-08-31] MEDS: METOPROLOL 100 MG TAB PO SCH ×2 (08:13→21:11)
[2018-08-31] MEDS: INSULIN ASPART [NOVOLOG] 3 ML PEN SC SCH ×7 (08:15→21:00)
[2018-08-31] MEDS: HEPARIN 5,000 UNIT/1 ML VIAL SC SCH ×2 (08:17→21:06)
[2018-08-31] MEDS: DAKINS 0.0125%(1/40) 473 ML SOLUTION TP SCH (08:18)
[2018-08-31] MEDS: DOCUSATE SODIUM 100 MG CAP PO SCH ×2 (08:19→21:00)
[2018-08-31 08:20] VITALS: BP 146/95; PULSE 80; RESP 16
[2018-08-31] MEDS: LISINOPRIL 20 MG TAB PO SCH ×2 (08:47→21:10)
--- NOTE | 2018-08-31 11:35 | PN ---
Date/Time of Note Date/Time of Note DATE: 08/31/18 TIME: 11:30 Assessment/Plan VTE Prophylaxis Risk score (from [facility])>0 risk: 1 SCD applied (from [facility]): No SCD contraindicated: patient refusal Pharmacological prophylaxis: heparin Lines/Catheters IV [facility] Type ([facility] PICC Line Central line still needed: Yes Urinary Cath still in place: No Assessment/Plan Problems: (1) Staphylococcus aureus bacteremia Status: Acute Comment: She is on antibiotic therapy aggressively at this time. Undoubtedly the source of this is a can be coming from his right foot osteomyelitis. He wishes to do everything he can to try and save the toe and bones of that foot. As such he has a PICC line and will be on long-term antibiotic therapy. (2) Chronic osteomyelitis of right foot with draining sinus Status: Chronic Comment: Noted. Please see the extensive bony involvement. Vascular surgery is going to try and help us with blood flow (3) Diabetes mellitus type 2 with complications, uncontrolled Status: Chronic Comment: His outpatient diabetic control was miserable. Working on getting under better control and so far in a controlled environment with a controlled di et his sugars are actually looking better (4) Peripheral vascular disease of lower extremity with ulceration Status: Chronic Comment: Add in pentoxifylline in size lost his all to see what we can do to help pending vascular surgical intervention. 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 Status: Chronic Comment: This is been present for 3 years and followed varicella infection bilaterally (8) Varicella keratitis Status: Chronic Comment: Inactive at this time (9) Hairy cell leukemia Status: Acute Comment: Reportedly in remission as per patient Qualifiers: Leukemia Active/Remission status: in remission Qualified Codes: C91.41 - H airy cell leukemia, in remission Result Diagram: 08/31/18 0439 08/31/18 0439 Results 24hrs Laboratory Tests Test 08/30/18 12:09 08/30/18 16:47 08/30/18 20:48 08/31/18 04:38 Bedside Glucose 245 H 118 120 Vancomycin Level 15.2 Trough Test 08/31/18 04:39 08/31/18 08:05 White Blood Count 4.7 L Red Blood Count 4.18 L Hemoglobin 11.2 L Hematocrit 36.1 L Mean Corpuscular 86.4 Volume Mean Corpuscular 26.8 L Hemoglobin Mean Corpuscular 31.0 L Hemoglobin Concent Red Cell 13.5 Distribution Width Platelet Count 292 Mean Platelet Volume 10.0 Immature 0.600 H Granulocytes % Neutrophils % 63.5 Lymphocytes % 23.2 Monocytes % 8.5 Eosinophils % 3.8 Basophils % 0.4 Nucleated Red Blood 0.0 Cells % Immature 0.030 Granulocytes # Neutrophils # 3.0 Lymphocytes # 1.1 Monocytes # 0.4 Eosinophils # 0.2 Basophils # 0.0 Nucleated Red Blood 0.0 Cells # Sodium Level 140 Potassium Level 4.1 Chloride Level 106 Carbon Dioxide Level 28 Anion Gap 6 Blood Urea Nitrogen 11 Creatinine 0.99 Est Glomerular > 60 Filtrat Rate mL/min Glucose Level 130 # Calcium Level 8.6 Bedside Glucose 141 Subjective 24 Hr Interval Summary Free Text/Dictation Pleasant -[place] male who reports that he is hopeful but worried about his leg Constitutional: no complaints (Denies fevers chills or sweats) Respiratory: no complaints Cardiovascular: no complaints Gastrointestinal: no complaints Genitourinary: no complaints Exam/Review of Systems Exam Vitals Vital Signs Date Temp Pulse Resp B/P (MAP) Pulse Ox O2 O2 Flow FiO2 Time Delivery Rate 08/31/18 98.5 80 16 146/95 98 Room Air 08:20 (112) 08/29/18 2.0 06:02 Intake and Output 08/30/18 08/30/18 08/31/18 1515:00 23:00 07:00 IntakeIntake Total 1310 ml 710 ml 560 ml OutputOutput Total 600 ml 400 ml 600 ml BalanceBalance 710 ml 310 ml -40 ml Constitutional: alert, oriented Eyes: other (Note blindness) Neck: supple, non-tender Respiratory: clear to auscultation, normal air movement Cardiovascular: regular rate and rhythm, nl pulses Gastrointestinal: soft, nl liver, spleen, non-tender Extremities: other (Lower extremity fully bandaged) Results Results 24hrs Laboratory Tests Test 08/30/18 12:09 08/30/18 16:47 08/30/18 20:48 08/31/18 04:38 Bedside Glucose 245 H 118 120 Vancomycin Level 15.2 Trough Test 08/31/18 04:39 08/31/18 08:05 White Blood Count 4.7 L Red Blood Count 4.18 L Hemoglobin 11.2 L Hematocrit 36.1 L Mean Corpuscular 86.4 Volume Mean Corpuscular 26.8 L Hemoglobin Mean Corpuscular 31.0 L Hemoglobin Concent Red Cell 13.5 Distribution Width Platelet Count 292 Mean Platelet Volume 10.0 Immature 0.600 H Granulocytes % Neutrophils % 63.5 Lymphocytes % 23.2 Monocytes % 8.5 Eosinophils % 3.8 Basophils % 0.4 Nucleated Red Blood 0.0 Cells % Immature 0.030 Granulocytes # Neutrophils # 3.0 Lymphocytes # 1.1 Monocytes # 0.4 Eosinophils # 0.2 Basophils # 0.0 Nucleated Red Blood 0.0 Cells # Sodium Level 140 Potassium Level 4.1 Chloride Level 106 Carbon Dioxide Level 28 Anion Gap 6 Blood Urea Nitrogen 11 Creatinine 0.99 Est Glomerular > 60 Filtrat Rate mL/min Glucose Level 130 # Calcium Level 8.6 Bedside Glucose 141 Medications Medication Current Medications IV Flush (NS 3 ml) 3 ml PER PROTOCOL IV ; Start 08/29/18 at 06:00 Ondansetron HCl (Zofran Inj) 4 mg Q6H PRN IV NAUSEA/VOMITING; Start 08/29/18 at 06:00 Acetaminophen (Tylenol Tab) 650 mg Q6H PRN PO .PAIN 1-3 OR TEMP Last administered on 08/29/18at 21:55; Admin Dose 650 MG; Start 08/29/18 at 06:00 Heparin Sodium (Porcine) (Heparin (5000 Units/1ml)) 5,000 unit Q12 SC Last administered on 08/31/18at 08:17; Admin Dose 5,000 UNIT; Start 08/29/18 at 09:00 Albuterol/ Ipratropium (Duoneb) 3 ml Q2H RESP THERAPY PRN HHN SHORTNESS OF BREATH; Start 08/29/18 at 06:00 Diagnostic Test (Pha) (Accu-Chek) 1 ea 02 XX Last administered on 08/30/18at 02:42; Admin Dose 1 EA; Start 08/30/18 at 02:00 Allopurinol (Zyloprim) 300 mg DAILY PO Last administered on 08/31/18at 08:09; Admin Dose 300 MG; Start 08/29/18 at 09:00 Amlodipine Besylate (Norvasc) 10 mg DAILY PO Last administered on 08/31/18 08:13; Admin Dose 10 MG; Start 08/29/18 at 09:00 Docusate Sodium (Colace) 100 mg Q12 PO ; Start 08/29/18 at 09:00 Levofloxacin (Levaquin) 500 mg DAILY@06 PO Last administered on 08/31/18 05:40; Admin Dose 500 MG; Start 08/29/18 at 06:00 Lisinopril (Zestril) 20 mg BID PO Last administered on 08/31/18 08:47; Admin Dose 20 MG; Start 08/29/18 at 09:00 Metoprolol Tartrate (Lopressor) 100 mg BID PO Last administered on 08/31/18 08:13; Admin Dose 100 MG; Start 08/29/18 at 09:00 Pantoprazole (Protonix Tab) 40 mg DAILY@06 PO Last administered on 08/31/18 05:41; Admin Dose 40 MG; Start 08/29/18 at 06:00 Prednisolone/ Sulfacetamide (Blephamide Oph) 2 drop QID BOTH EYES Last administered on 08/31/18 08:13; Admin Dose 2 DROP; Start 08/29/18 at 09:00 Zolpidem Tartrate (Ambien) 5 mg HS MAY REPEAT X 1 PRN PO INSOMNIA; Start 08/29/18 at 06:00 Piperacillin Sod/ Tazobactam Sod 100 ml @ 200 mls/hr Q6 IVPB Last administered on 08/31/18at 05:40; Admin Dose 200 MLS/HR; Start 08/29/18 at 14:23 Vancomycin HCl (Vanco Iv Per Pharmacy) VANCOMYCIN PER PHARMACY PER PROTOCOL XX ; Start 08/29/18 at 13:30 Insulin Aspart (Novolog Insulin Pen) NOVOLOG *MILD* ALGORITHM WITH MEALS BEDTIME SC Last administered on 08/31/18 08:15; Admin Dose 1 UNIT; Start 08/29/18 at 18:00 Vancomycin HCl 1.5 gm/Sodium Chloride 250 ml @ 83.333 mls/ hr Q12H IVPB Last administered on 08/31/18 06:27; Admin Dose 83.333 MLS/HR; Start 08/30/18 at 05:00 Acetaminophen/ Hydrocodone Bitart ([place] (5/325)) 1 tab Q4H PRN PO PAIN LEVEL 1-5 Last administered on 08/31/18 04:42; Admin Dose 1 TAB; Start 08/29/18 at 23:00 Acetaminophen/ Hydrocodone Bitart ([place] (5/325)) 2 tab Q4H PRN PO MODERATE PAIN LEVEL 4-6; Start 08/29/18 at 23:00 Insulin Aspart (Novolog Insulin Pen) 15 unit WITH MEALS SC Last administered on 08/31/18 08:16; Admin Dose 15 UNIT; Start 08/30/18 at 12:00 Insulin Glargine (Lantus) 48 units QHS SC Last administered on 08/30/18at 20:55; Admin Dose 48 UNITS; Start 08/30/18 at 21:00 Sodium Hypochlorite (Dakins Diluted (40)) 1 applic DAILY TP Last administered on 08/31/18 08:18; Admin Dose 1 APPLIC; Start 08/30/18 at 16:00 IV Flush (NS 10 ml) 10 ml PRN PRN IV IV PROTOCOL; Start 08/30/18 at 19:00 NATHANAEL JACOBSEN MD Aug 31, 2018 11:35
[2018-08-31] MEDS: PENTOXIFYLLINE (SR) 400 MG TAB PO SCH ×2 (12:26→21:05)
--- NOTE | 2018-08-31 15:44 | CONS ---
Assessment/Plan Assessment/Plan Hospital Course (Demo Recall) ID PROGRESS NOTE CURRENT ABX=Day # => Vanco IV + Zosyn 24H INTERVAL SUMMARY * Patient is napping with the TV on watching sports -- he is arousable, no new issues, no c/o * No fevers, VSS, NAD, chart reviewed * MICRO * 08/29/18 TOE CX: WOUND CULTURE Preliminary Organism 1 COAGULASE NEGATIVE STAPH QUANTITY 2+ * 08/29/18 BCX (+) 2/2 BOTTLES BLOOD CULTURE Final BCULT GRAM BOTTLE 1 Gram positive cocci in clusters 1 of 2 bottles . seen on gram stain of the broth Organism 1 STAPHYLOCOCCUS AUREUS S AUREUS M.I.C. RX --------- --- CEFAZOLIN S CIPROFLOXACIN <=0.5 S CLINDAMYCIN <=0.25 S DOXYCYCLINE S ERYTHROMYCIN <=0.25 S LEVOFLOXACIN 0.25 S OXACILLIN 0.5 S PENICILLIN-G R RIFAMPIN <=0.5 S VANCOMYCIN 1 S TRIMETHOPRIM/SULFAMETHOXAZOLE <=10 S ------- PHYSICAL EXAMINATION: GENERAL:VSS, NAD, large body habitus HEENT: AT,NC, blind NECK: Supple, trachea midline. CHEST: Rise symmetrical, without dyspnea on observation HEART: Pulse RRR ABDOMEN: Soft, ND EXTREMITIES: Warm, moves all extremities, Right foot DSG C/d/I ID ASSESSMENT 58 yo M admit with: 1. Gram-positive cocci bacteremia, likely secondary to #2 2. Right foot cellulitis with osteomyelitis of great toe, status post I&D at bedside 3. Diabetes with diabetic neuropathy 4. Legally blind 5. Leukopenia and anemia INVASIVES: ABX ALLERGY: KNDA CURRENT ABX: => Vanco IV + Zosyn ID RECOMMENDATIONS 1. Per podiatry note patient refused amputation therefore will require long-term antibiotics for osteomyelitis, likely intravenous. 2. F/U on final cultures pending . Consultation Date/Type/Reason Admit Date/Time Aug 29, 2018 at 04:44 Initial Consult Date Date/Time of Note DATE: 08/31/18 TIME: 15:44 Exam/Review of Systems Exam Vitals Vital Signs Date Temp Pulse Resp B/P (MAP) Pulse Ox O2 O2 Flow FiO2 Time Delivery Rate 08/31/18 98.5 80 16 146/95 98 Room Air 08:20 (112) 08/29/18 2.0 06:02 Intake and Output 08/30/18 08/30/18 08/31/18 1515:00 23:00 07:00 IntakeIntake Total 1310 ml 710 ml 560 ml OutputOutput Total 600 ml 400 ml 600 ml BalanceBalance 710 ml 310 ml -40 ml Results Result Diagram: 08/31/18 0439 08/31/18 0439 Results 24hrs Laboratory Tests Test 08/30/18 16:47 08/30/18 20:48 08/31/18 04:35 08/31/18 04:38 Bedside Glucose 118 120 Hepatitis B NEGATIVE Surface Antigen Hepatitis C NEGATIVE Antibody Vancomycin Level 15.2 Trough Test 08/31/18 04:39 08/31/18 08:05 08/31/18 11:45 08/31/18 12:21 White Blood Count 4.7 L Red Blood Count 4.18 L Hemoglobin 11.2 L Hematocrit 36.1 L Mean Corpuscular 86.4 Volume Mean Corpuscular 26.8 L Hemoglobin Mean Corpuscular 31.0 L Hemoglobin Concen t Red Cell 13.5 Distribution Width Platelet Count 292 Mean Platelet 10.0 Volume Immature 0.600 H Granulocytes % Neutrophils % 63.5 Lymphocytes % 23.2 Monocytes % 8.5 Eosinophils % 3.8 Basophils % 0.4 Nucleated Red 0.0 Blood Cells % Immature 0.030 Granulocytes # Neutrophils # 3.0 Lymphocytes # 1.1 Monocytes # 0.4 Eosinophils # 0.2 Basophils # 0.0 Nucleated Red 0.0 Blood Cells # Sodium Level 140 Potassium Level 4.1 Chloride Level 106 Carbon Dioxide 28 Level Anion Gap 6 Blood Urea 11 Nitrogen Creatinine 0.99 Est Glomerular > 60 Filtrat Rate mL/min Glucose Level 130 # Calcium Level 8.6 Bedside Glucose 141 102 Urine Color YELLOW Urine Clarity SLIGHTLY CLOUDY A Urine pH 6.0 Urine Specific 1.021 [place] Urine Ketones NEGATIVE Urine Nitrite NEGATIVE Urine Bilirubin NEGATIVE Urine 2+ H Urobilinogen Urine Leukocyte NEGATIVE Esterase Urine Microscopic 0 RBC Urine Microscopic 2 WBC Urine Bacteria FEW A Urine Hemoglobin NEGATIVE Urine Glucose NEGATIVE Urine Total NEGATIVE Protein Medications Medication Current Medications IV Flush (NS 3 ml) 3 ml PER PROTOCOL IV ; Start 08/29/18 at 06:00 Ondansetron HCl (Zofran Inj) 4 mg Q6H PRN IV NAUSEA/VOMITING; Start 08/29/18 at 06:00 Acetaminophen (Tylenol Tab) 650 mg Q6H PRN PO .PAIN 1-3 OR TEMP Last administered on 08/29/18at 21:55; Admin Dose 650 MG; Start 08/29/18 at 06:00 Heparin Sodium (Porcine) (Heparin (5000 Units/1ml)) 5,000 unit Q12 SC Last administered on 08/31/18 08:17; Admin Dose 5,000 UNIT; Start 08/29/18 at 09:00 Albuterol/ Ipratropium (Duoneb) 3 ml Q2H RESP THERAPY PRN HHN SHORTNESS OF BREATH; Start 08/29/18 at 06:00 Diagnostic Test (Pha) (Accu-Chek) 1 ea 02 XX Last administered on 08/30/18at 02:42; Admin Dose 1 EA; Start 08/30/18 at 02:00 Allopurinol (Zyloprim) 300 mg DAILY PO Last administered on 08/31/18 08:09; Admin Dose 300 MG; Start 08/29/18 at 09:00 Amlodipine Besylate (Norvasc) 10 mg DAILY PO Last administered on 08/31/18 08:13; Admin Dose 10 MG; Start 08/29/18 at 09:00 Docusate Sodium (Colace) 100 mg Q12 PO ; Start 08/29/18 at 09:00 Levofloxacin (Levaquin) 500 mg DAILY@06 PO Last administered on 08/31/18 05:40; Admin Dose 500 MG; Start 08/29/18 at 06:00 Metoprolol Tartrate (Lopressor) 100 mg BID PO Last administered on 08/31/18 08:13; Admin Dose 100 MG; Start 08/29/18 at 09:00 Pantoprazole (Protonix Tab) 40 mg DAILY@06 PO Last administered on 08/31/18 05:41; Admin Dose 40 MG; Start 08/29/18 at 06:00 Prednisolone/ Sulfacetamide (Blephamide Oph) 2 drop QID BOTH EYES Last administered on 08/31/18 12:22; Admin Dose 2 DROP; Start 08/29/18 at 09:00 Zolpidem Tartrate (Ambien) 5 mg HS MAY REPEAT X 1 PRN PO INSOMNIA; Start 08/29/18 at 06:00 Piperacillin Sod/ Tazobactam Sod 100 ml @ 200 mls/hr Q6 IVPB Last administered on 08/31/18 12:19; Admin Dose 200 MLS/HR; Start 08/29/18 at 14:23 Vancomycin HCl (Vanco Iv Per Pharmacy) VANCOMYCIN PER PHARMACY PER PROTOCOL XX ; Start 08/29/18 at 13:30 Insulin Aspart (Novolog Insulin Pen) NOVOLOG *MILD* ALGORITHM WITH MEALS BEDTIME SC Last administered on 08/31/18 08:15; Admin Dose 1 UNIT; Start 08/29/18 at 18:00 Vancomycin HCl 1.5 gm/Sodium Chloride 250 ml @ 83.333 mls/ hr Q12H IVPB Last administered on 08/31/18 06:27; Admin Dose 83.333 MLS/HR; Start 08/30/18 at 05:00 Acetaminophen/ Hydrocodone Bitart ([place] (5/325)) 1 tab Q4H PRN PO PAIN LEVEL 1-5 Last administered on 08/31/18 04:42; Admin Dose 1 TAB; Start 08/29/18 at 23:00 Acetaminophen/ Hydrocodone Bitart ([place] (5/325)) 2 tab Q4H PRN PO MODERATE PAIN LEVEL 4-6; Start 08/29/18 at 23:00 Insulin Aspart (Novolog Insulin Pen) 15 unit WITH MEALS SC Last administered on 08/31/18 12:23; Admin Dose 15 UNIT; Start 08/30/18 at 12:00 Insulin Glargine (Lantus) 48 units QHS SC Last administered on 08/30/18 20:55; Admin Dose 48 UNITS; Start 08/30/18 at 21:00 Sodium Hypochlorite (Dakins Diluted (/40)) 1 applic DAILY TP Last administered on 08/31/18 08:18; Admin Dose 1 APPLIC; Start 08/30/18 at 16:00 IV Flush (NS 10 ml) 10 ml PRN PRN IV IV PROTOCOL; Start 08/30/18 at 19:00 Lisinopril (Zestril) 40 mg BID PO ; Start 08/31/18 at 21:00 Atorvastatin Calcium (Lipitor) 40 mg HS PO ; Start 08/31/18 at 21:00 Pentoxifylline (Trental) 400 mg TID PO Last administered on 08/31/18at 12:26; Admin Dose 400 MG; Start 08/31/18 at 13:00 Cilostazol (Pletal) 100 mg BID PO ; Start 08/31/18 at 21:00 LENCHO ESQUIVEL NP Aug 31, 2018 15:44
[2018-08-31 16:19] VITALS: BP 118/82; PULSE 87; RESP 18
[2018-08-31 20:22] VITALS: BP 147/87; PULSE 66; RESP 18
[2018-08-31] MEDS: ATORVASTATIN 40 MG TAB PO SCH (21:05)
[2018-08-31] MEDS: CILOSTAZOL 100 MG TAB PO SCH (21:05)
[2018-08-31] MEDS: INSULIN GLARGINE [LANTus] (100 UNITS/ML) SYG SC SCH (22:05)
[2018-09-01] MEDS: PIPER-TAZO 3.375 GM IV (PMX) 100 ML IVPB SCH ×4 (01:11→19:30)
[2018-09-01] MEDS: ACCU-CHEK XX SCH (02:00)
[2018-09-01 02:13] VITALS: BP 134/88; PULSE 79; RESP 18
[2018-09-01] MEDS: VANCOMYCIN HCL 1.5 GM in SOD CHLORIDE 0.9% 250 ML IVPB SCH ×3 (04:34→16:32)
[2018-09-01] MEDS: PANTOPRAZOLE (EC) 40 MG TAB PO SCH (05:39)
[2018-09-01] MEDS: LEVOFLOXACIN 500 MG TAB PO SCH (05:39)
[2018-09-01 07:54] VITALS: BP 119/70; PULSE 86; RESP 18
[2018-09-01] MEDS: INSULIN ASPART [NOVOLOG] 3 ML PEN SC SCH ×7 (07:59→21:00)
[2018-09-01] MEDS: HEPARIN 5,000 UNIT/1 ML VIAL SC SCH ×2 (08:49→21:59)
[2018-09-01] MEDS: PENTOXIFYLLINE (SR) 400 MG TAB PO SCH ×3 (08:50→21:59)
[2018-09-01] MEDS: CILOSTAZOL 100 MG TAB PO SCH ×2 (08:50→22:03)
[2018-09-01] MEDS: ALLOPURINOL 300 MG TAB PO SCH (08:50)
[2018-09-01] MEDS: AMLODIPINE 10 MG TAB PO SCH (08:51)
[2018-09-01] MEDS: LISINOPRIL 20 MG TAB PO SCH ×2 (08:52→22:03)
[2018-09-01] MEDS: DOCUSATE SODIUM 100 MG CAP PO SCH ×2 (08:52→22:03)
[2018-09-01] MEDS: METOPROLOL 100 MG TAB PO SCH ×2 (08:52→22:02)
[2018-09-01] MEDS: PREDNISOLONE/SULFACETAMIDE 5 ML OPH BOTH EYES SCH ×4 (08:53→22:04)
[2018-09-01] MEDS: DAKINS 0.0125%(1/40) 473 ML SOLUTION TP SCH (08:54)
--- NOTE | 2018-09-01 10:25 | PN ---
Date/Time of Note Date/Time of Note DATE: 09/01/18 TIME: 10:16 Assessment/Plan VTE Prophylaxis Risk score (from [facility] [place]0 risk: 2 SCD applied (from [facility] [place] No SCD contraindicated: bilateral LE trauma Pharmacological prophylaxis: heparin Lines/Catheters IV C[facility]ter Type (from [facility] PICC Line Central line still needed: Yes Urinary Cath still in place: No Assessment/Plan Problems: (1) Chronic osteomyelitis of right foot with draining sinus Status: Chronic Comment: She is on antibiotics at this time and has a PICC line. He emphatically to me that if we do not think that his toe will be salvageable that he would like to make sure to have surgical correction of this so as not to risk his life. (2) Peripheral vascular disease of lower extremity with ulceration Status: Chronic Comment: Please see above; Dr. Lombardi of vascular surgery is completing his evaluation tomorrow. 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 Qualifiers: Leukemia Active/Remission status: in remission Qualified Codes: C91.41 - Hairy cell leukemia, in remission (8) Essential hypertension Status: Chronic Comment: Adequate control Result Diagram: 09/01/18 0500 09/01/18 0500 Results 24hrs Laboratory Tests Test 08/31/18 11:45 08/31/18 12:21 08/31/18 17:16 08/31/18 21:02 Urine Color YELLOW Urine Clarity SLIGHTLY CLOUDY A Urine pH 6.0 Urine Specific 1.021 [place] Urine Ketones NEGATIVE Urine Nitrite NEGATIVE Urine Bilirubin NEGATIVE Urine 2+ H Urobilinogen Urine Leukocyte NEGATIVE Esterase Urine Microscopic 0 RBC Urine Microscopic 2 WBC Urine Bacteria FEW A Urine Hemoglobin NEGATIVE Urine Glucose NEGATIVE Urine Total NEGATIVE Protein Bedside Glucose 102 107 91 Test 08/31/18 22:03 09/01/18 05:00 09/01/18 07:58 Bedside Glucose 181 134 White Blood Count 3.9 L Red Blood Count 4.08 L Hemoglobin 10.9 L Hematocrit 35.3 L Mean Corpuscular 86.5 Volume Mean Corpuscular 26.7 L Hemoglobin Mean Corpuscular 30.9 L Hemoglobin Concen t Red Cell 13.5 Distribution Width Platelet Count 276 Mean Platelet 10.3 Volume Immature 0.500 H Granulocytes % Neutrophils % 60.9 Lymphocytes % 26.3 Monocytes % 7.9 Eosinophils % 3.6 Basophils % 0.8 Nucleated Red 0.0 Blood Cells % Immature 0.020 Granulocytes # Neutrophils # 2.4 Lymphocytes # 1.0 Monocytes # 0.3 Eosinophils # 0.1 Basophils # 0.0 Nucleated Red 0.0 Blood Cells # Sodium Level 140 Potassium Level 3.9 Chloride Level 107 Carbon Dioxide 26 Level Anion Gap 7 Blood Urea 10 Nitrogen Creatinine 0.97 Est Glomerular > 60 Filtrat Rate mL/min Glucose Level 177 Uric Acid 2.1 L Calcium Level 8.7 CC: DO LOMBARDI MD; YEN DUENAS DPRayo ; Subjective 24 Hr Interval Summary Free Text/Dictation She reports he is doing generally well, however he states that if it is necessary to save his life he would be willing to have further surgical intervention on his foot including amputation of the toe Constitutional: no complaints Respiratory: no complaints Cardiovascular: no complaints Gastrointestinal: no complaints Exam/Review of Systems Exam Vitals Vital Signs Date Temp Pulse Resp B/P (MAP) Pulse Ox O2 O2 Flow FiO2 Time Delivery Rate 09/01/18 98.6 86 18 119/70 98 07:54 (86) 08/31/18 Room Air 08:20 08/29/18 2.0 06:02 Intake and Output 08/31/18 08/31/18 09/01/18 1515:00 23:00 07:00 IntakeIntake Total 1450 ml 2050 ml 200 ml OutputOutput Total 1050 ml BalanceBalance 1450 ml 2050 ml -850 ml Constitutional: alert, oriented Respiratory: clear to auscultation, normal air movement Cardiovascular: regular rate and rhythm, nl pulses Gastrointestinal: soft, nl liver, spleen, non-tender Results Results 24hrs Laboratory Tests Test 08/31/18 11:45 08/31/18 12:21 08/31/18 17:16 08/31/18 21:02 Urine Color YELLOW Urine Clarity SLIGHTLY CLOUDY A Urine pH 6.0 Urine Specific 1.021 [place] Urine Ketones NEGATIVE Urine Nitrite NEGATIVE Urine Bilirubin NEGATIVE Urine 2+ H Urobilinogen Urine Leukocyte NEGATIVE Esterase Urine Microscopic 0 RBC Urine Microscopic 2 WBC Urine Bacteria FEW A Urine Hemoglobin NEGATIVE Urine Glucose NEGATIVE Urine Total NEGATIVE Protein Bedside Glucose 102 107 91 Test 08/31/18 22:03 09/01/18 05:00 09/01/18 07:58 Bedside Glucose 181 134 White Blood Count 3.9 L Red Blood Count 4.08 L Hemoglobin 10.9 L Hematocrit 35.3 L Mean Corpuscular 86.5 Volume Mean Corpuscular 26.7 L Hemoglobin Mean Corpuscular 30.9 L Hemoglobin Concen t Red Cell 13.5 Distribution Width Platelet Count 276 Mean Platelet 10.3 Volume Immature 0.500 H Granulocytes % Neutrophils % 60.9 Lymphocytes % 26.3 Monocytes % 7.9 Eosinophils % 3.6 Basophils % 0.8 Nucleated Red 0.0 Blood Cells % Immature 0.020 Granulocytes # Neutrophils # 2.4 Lymphocytes # 1.0 Monocytes # 0.3 Eosinophils # 0.1 Basophils # 0.0 Nucleated Red 0.0 Blood Cells # Sodium Level 140 Potassium Level 3.9 Chloride Level 107 Carbon Dioxide 26 Level Anion Gap 7 Blood Urea 10 Nitrogen Creatinine 0.97 Est Glomerular > 60 Filtrat Rate mL/min Glucose Level 177 Uric Acid 2.1 L Calcium Level 8.7 Medications Medication Current Medications IV Flush (NS 3 ml) 3 ml PER PROTOCOL IV ; Start 08/29/18 at 06:00 Ondansetron HCl (Zofran Inj) 4 mg Q6H PRN IV NAUSEA/VOMITING; Start 08/29/18 at 06:00 Acetaminophen (Tylenol Tab) 650 mg Q6H PRN PO .PAIN 1-3 OR TEMP Last administered on 08/29/18at 21:55; Admin Dose 650 MG; Start 08/29/18 at 06:00 Heparin Sodium (Porcine) (Heparin (5000 Units/1ml)) 5,000 unit Q12 SC Last administered on 09/01/18at 08:49; Admin Dose 5,000 UNIT; Start 08/29/18 at 09:00 Albuterol/ Ipratropium (Duoneb) 3 ml Q2H RESP THERAPY PRN HHN SHORTNESS OF BREATH; Start 08/29/18 at 06:00 Diagnostic Test (Pha) (Accu-Chek) 1 ea 02 XX Last administered on 08/30/18 02:42; Admin Dose 1 EA; Start 08/30/18 at 02:00 Allopurinol (Zyloprim) 300 mg DAILY PO Last administered on 09/01/18 08:50; Admin Dose 300 MG; Start 08/29/18 at 09:00 Amlodipine Besylate (Norvasc) 10 mg DAILY PO Last administered on 09/01/18 08:51; Admin Dose 10 MG; Start 08/29/18 at 09:00 Docusate Sodium (Colace) 100 mg Q12 PO Last administered on 09/01/18 08:52; Admin Dose 100 MG; Start 08/29/18 at 09:00 Levofloxacin (Levaquin) 500 mg DAILY@06 PO Last administered on 09/01/18 05:39; Admin Dose 500 MG; Start 08/29/18 at 06:00 Metoprolol Tartrate (Lopressor) 100 mg BID PO Last administered on 09/01/18 08:52; Admin Dose 100 MG; Start 08/29/18 at 09:00 Pantoprazole (Protonix Tab) 40 mg DAILY@06 PO Last administered on 09/01/18 05:39; Admin Dose 40 MG; Start 08/29/18 at 06:00 Prednisolone/ Sulfacetamide (Blephamide Oph) 2 drop QID BOTH EYES Last administered on 09/01/18 08:53; Admin Dose 2 DROP; Start 08/29/18 at 09:00 Zolpidem Tartrate (Ambien) 5 mg HS MAY REPEAT X 1 PRN PO INSOMNIA; Start 08/29/18 at 06:00 Piperacillin Sod/ Tazobactam Sod 100 ml @ 200 mls/hr Q6 IVPB Last administered on 09/01/18 05:23; Admin Dose 200 MLS/HR; Start 08/29/18 at 14:23 Vancomycin HCl (Vanco Iv Per Pharmacy) VANCOMYCIN PER PHARMACY PER PROTOCOL XX ; Start 08/29/18 at 13:30 Insulin Aspart (Novolog Insulin Pen) NOVOLOG *MILD* ALGORITHM WITH MEALS BEDTIME SC Last administered on 08/31/18 08:15; Admin Dose 1 UNIT; Start 08/29/18 at 18:00 Vancomycin HCl 1.5 gm/Sodium Chloride 250 ml @ 83.333 mls/ hr Q12H IVPB Last administered on 09/01/18 04:34; Admin Dose 83.333 MLS/HR; Start 08/30/18 at 05:00 Acetaminophen/ Hydrocodone Bitart ([place] (5/325)) 1 tab Q4H PRN PO PAIN LEVEL 1-5 Last administered on 08/31/18 04:42; Admin Dose 1 TAB; Start 08/29/18 at 23:00 Acetaminophen/ Hydrocodone Bitart ([place] (5/325)) 2 tab Q4H PRN PO MODERATE PAIN LEVEL 4-6; Start 08/29/18 at 23:00 Insulin Aspart (Novolog Insulin Pen) 15 unit WITH MEALS SC Last administered on 09/01/18 08:01; Admin Dose 15 UNIT; Start 08/30/18 at 12:00 Insulin Glargine (Lantus) 48 units QHS SC Last administered on 08/31/18 22:05; Admin Dose 48 UNITS; Start 08/30/18 at 21:00 Sodium Hypochlorite (Dakins Diluted (40)) 1 applic DAILY TP Last administered on 09/01/18 08:54; Admin Dose 1 APPLIC; Start 08/30/18 at 16:00 IV Flush (NS 10 ml) 10 ml PRN PRN IV IV PROTOCOL; Start 08/30/18 at 19:00 Lisinopril (Zestril) 40 mg BID PO Last administered on 09/01/18 08:52; Admin Dose 40 MG; Start 08/31/18 at 21:00 Atorvastatin Calcium (Lipitor) 40 mg HS PO Last administered on 08/31/18 21:05; Admin Dose 40 MG; Start 08/31/18 at 21:00 Pentoxifylline (Trental) 400 mg TID PO Last administered on 09/01/18 08:50; Admin Dose 400 MG; Start 08/31/18 at 13:00 Cilostazol (Pletal) 100 mg BID PO Last administered on 09/01/18 08:50; Admin Dose 100 MG; Start 08/31/18 at 21:00 NATHANAEL JACOBSEN MD Sep 01, 2018 10:25
--- NOTE | 2018-09-01 13:01 | CONS ---
Assessment/Plan Assessment/Plan Hospital Course (Demo Recall) ID PROGRESS NOTE CURRENT ABX=Day # => Vanco IV + Zosyn 24H INTERVAL SUMMARY * A/A/O, no fevers, VSS, polite, pleasant, no new issues, no complaints == he expressed gratitude for his medical care, thanks all medical providers/nurses/staff for helping him save his foot. MICRO * 08/29/18 FOOT CX: WOUND CULTURE Preliminary Organism 1 COAGULASE NEGATIVE STAPH QUANTITY 2+ Organism 2 COAGULASE NEGATIVE STAPH#2 QUANTITY 2+ Organism 3 ALPHA HEMOLYTIC STREP SPP QUANTITY 2+ . VIRIDANS GROUP * 08/29/18 TOE CX: WOUND CULTURE Preliminary Organism 1 COAGULASE NEGATIVE STAPH QUANTITY 2+ Organism 2 COAGULASE NEGATIVE STAPH#2 QUANTITY 1+ Organism 3 STAPHYLOCOCCUS AUREUS QUANTITY ISOLATED FROM BROTH ONLY Organism 4 DIPTHEROIDS QUANTITY 1+ COAG NEG COAG NEG#2 M.I.C. RX M.I.C. RX --------- --- --------- --- CEFAZOLIN R S CIPROFLOXACIN 1 S <=0.5 S CLINDAMYCIN >=8 R <=0.25 S DOXYCYCLINE S S ERYTHROMYCIN >=8 R >=8 R LEVOFLOXACIN 0.5 S <=0.12 S OXACILLIN >=4 R <=0.25 S PENICILLIN-G >=0.5 R >=0.5 R RIFAMPIN <=0.5 S <=0.5 S VANCOMYCIN <=0.5 S 1 S TRIMETHOPRIM/SULFAMETHOXAZOLE >=320 R >=320 R * 08/29/18 BCX (+) 2/2 BOTTLES BLOOD CULTURE Final BCULT GRAM BOTTLE 1 Gram positive cocci in clusters 1 of 2 bottles . seen on gram stain of the broth Organism 1 STAPHYLOCOCCUS AUREUS S AUREUS M.I.C. RX --------- --- CEFAZOLIN S CIPROFLOXACIN <=0.5 S CLINDAMYCIN <=0.25 S DOXYCYCLINE S ERYTHROMYCIN <=0.25 S LEVOFLOXACIN 0.25 S OXACILLIN 0.5 S PENICILLIN-G R RIFAMPIN <=0.5 S VANCOMYCIN 1 S TRIMETHOPRIM/SULFAMETHOXAZOLE <=10 S ----- PHYSICAL EXAMINATION: GENERAL:VSS, NAD, large body habitus HEENT: AT,NC, blind NECK: Supple, trachea midline. CHEST: Rise symmetrical, without dyspnea on observation HEART: Pulse RRR ABDOMEN: Soft, ND EXTREMITIES: Warm, moves all extremities, Right foot DSG C/d/I ID ASSESSMENT 58 yo M admit with: 1. Gram-positive cocci bacteremia, likely secondary to #2 2. Right foot cellulitis with osteomyelitis of great toe, status post I&D at bedside 3. Diabetes with diabetic neuropathy 4. Legally blind 5. Leukopenia and anemia INVASIVES: ABX ALLERGY: KNDA CURRENT ABX: => Vanco IV + Zosyn ID RECOMMENDATIONS 1. Per podiatry note patient refused amputation therefore will require long-term antibiotics for osteomyelitis, likely intravenous. 2. F/U on final cultures pending . Consultation Date/Type/Reason Admit Date/Time Aug 29, 2018 at 04:44 Initial Consult Date Date/Time of Note DATE: 09/01/18 TIME: 12:57 Exam/Review of Systems Exam Vitals Vital Signs Date Temp Pulse Resp B/P (MAP) Pulse Ox O2 O2 Flow FiO2 Time Delivery Rate 09/01/18 98.6 86 18 119/70 98 07:54 (86) 08/31/18 Room Air 08:20 08/29/18 2.0 06:02 Intake and Output 08/31/18 08/31/18 09/01/18 1515:00 23:00 07:00 IntakeIntake Total 1450 ml 2050 ml 200 ml OutputOutput Total 1050 ml BalanceBalance 1450 ml 2050 ml -850 ml Results Result Diagram: 09/01/18 0500 09/01/18 0500 Results 24hrs Laboratory Tests Test 08/31/18 17:16 08/31/18 21:02 08/31/18 22:03 09/01/18 05:00 Bedside Glucose 107 91 181 White Blood Count 3.9 L Red Blood Count 4.08 L Hemoglobin 10.9 L Hematocrit 35.3 L Mean Corpuscular 86.5 Volume Mean Corpuscular 26.7 L Hemoglobin Mean Corpuscular 30.9 L Hemoglobin Concent Red Cell 13.5 Distribution Width Platelet Count 276 Mean Platelet Volume 10.3 Immature 0.500 H Granulocytes % Neutrophils % 60.9 Lymphocytes % 26.3 Monocytes % 7.9 Eosinophils % 3.6 Basophils % 0.8 Nucleated Red Blood 0.0 Cells % Immature 0.020 Granulocytes # Neutrophils # 2.4 Lymphocytes # 1.0 Monocytes # 0.3 Eosinophils # 0.1 Basophils # 0.0 Nucleated Red Blood 0.0 Cells # Sodium Level 140 Potassium Level 3.9 Chloride Level 107 Carbon Dioxide Level 26 Anion Gap 7 Blood Urea Nitrogen 10 Creatinine 0.97 Est Glomerular > 60 Filtrat Rate mL/min Glucose Level 177 Uric Acid 2.1 L Calcium Level 8.7 Test 09/01/18 07:58 Bedside Glucose 134 Medications Medication Current Medications IV Flush (NS 3 ml) 3 ml PER PROTOCOL IV ; Start 08/29/18 at 06:00 Ondansetron HCl (Zofran Inj) 4 mg Q6H PRN IV NAUSEA/VOMITING; Start 08/29/18 at 06:00 Acetaminophen (Tylenol Tab) 650 mg Q6H PRN PO .PAIN 1-3 OR TEMP Last administered on 08/29/18at 21:55; Admin Dose 650 MG; Start 08/29/18 at 06:00 Heparin Sodium (Porcine) (Heparin (5000 Units/1ml)) 5,000 unit Q12 SC Last administered on 09/01/18 08:49; Admin Dose 5,000 UNIT; Start 08/29/18 at 09:00 Albuterol/ Ipratropium (Duoneb) 3 ml Q2H RESP THERAPY PRN HHN SHORTNESS OF BREATH; Start 08/29/18 at 06:00 Diagnostic Test (Pha) (Accu-Chek) 1 ea 02 XX Last administered on 08/30/18 02:42; Admin Dose 1 EA; Start 08/30/18 at 02:00 Allopurinol (Zyloprim) 300 mg DAILY PO Last administered on 09/01/18 08:50; Admin Dose 300 MG; Start 08/29/18 at 09:00 Amlodipine Besylate (Norvasc) 10 mg DAILY PO Last administered on 09/01/18 08:51; Admin Dose 10 MG; Start 08/29/18 at 09:00 Docusate Sodium (Colace) 100 mg Q12 PO Last administered on 09/01/18 08:52; Admin Dose 100 MG; Start 08/29/18 at 09:00 Levofloxacin (Levaquin) 500 mg DAILY@06 PO Last administered on 09/01/18 05:39; Admin Dose 500 MG; Start 08/29/18 at 06:00 Metoprolol Tartrate (Lopressor) 100 mg BID PO Last administered on 09/01/18 08:52; Admin Dose 100 MG; Start 08/29/18 at 09:00 Pantoprazole (Protonix Tab) 40 mg DAILY@06 PO Last administered on 09/01/18 05:39; Admin Dose 40 MG; Start 08/29/18 at 06:00 Prednisolone/ Sulfacetamide (Blephamide Oph) 2 drop QID BOTH EYES Last administered on 09/01/18 08:53; Admin Dose 2 DROP; Start 08/29/18 at 09:00 Zolpidem Tartrate (Ambien) 5 mg HS MAY REPEAT X 1 PRN PO INSOMNIA; Start 08/29/18 at 06:00 Piperacillin Sod/ Tazobactam Sod 100 ml @ 200 mls/hr Q6 IVPB Last administered on 09/01/18 05:23; Admin Dose 200 MLS/HR; Start 08/29/18 at 14:23 Vancomycin HCl (Vanco Iv Per Pharmacy) VANCOMYCIN PER PHARMACY PER PROTOCOL XX ; Start 08/29/18 at 13:30 Insulin Aspart (Novolog Insulin Pen) NOVOLOG *MILD* ALGORITHM WITH MEALS BED TIME SC Last administered on 08/31/18 08:15; Admin Dose 1 UNIT; Start 08/29/18 at 18:00 Vancomycin HCl 1.5 gm/Sodium Chloride 250 ml @ 83.333 mls/ hr Q12H IVPB Last administered on 09/01/18 04:34; Admin Dose 83.333 MLS/HR; Start 08/30/18 at 05:00 Acetaminophen/ Hydrocodone Bitart ([place] (5/325)) 1 tab Q4H PRN PO PAIN LEVEL 1-5 Last administered on 08/31/18 04:42; Admin Dose 1 TAB; Start 08/29/18 at 23:00 Acetaminophen/ Hydrocodone Bitart ([place] (5/325)) 2 tab Q4H PRN PO MODERATE PAIN LEVEL 4-6; Start 08/29/18 at 23:00 Insulin Aspart (Novolog Insulin Pen) 15 unit WITH MEALS SC Last administered on 09/01/18 08:01; Admin Dose 15 UNIT; Start 08/30/18 at 12:00 Insulin Glargine (Lantus) 48 units QHS SC Last administered on 08/31/18 22:05; Admin Dose 48 UNITS; Start 08/30/18 at 21:00 Sodium Hypochlorite (Dakins Diluted ()) 1 applic DAILY TP Last administered on 09/01/18 08:54; Admin Dose 1 APPLIC; Start 08/30/18 at 16:00 IV Flush (NS 10 ml) 10 ml PRN PRN IV IV PROTOCOL; Start 08/30/18 at 19:00 Lisinopril (Zestril) 40 mg BID PO Last administered on 09/01/18 08:52; Admin Dose 40 MG; Start 08/31/18 at 21:00 Atorvastatin Calcium (Lipitor) 40 mg HS PO Last administered on 08/31/18 21:05; Admin Dose 40 MG; Start 08/31/18 at 21:00 Pentoxifylline (Trental) 400 mg TID PO Last administered on 09/01/18 08:50; Admin Dose 400 MG; Start 08/31/18 at 13:00 Cilostazol (Pletal) 100 mg BID PO Last administered on 09/01/18 08:50; Admin Dose 100 MG; Start 08/31/18 at 21:00 LENCHO ESQUIVEL NP Sep 01, 2018 13:01
[2018-09-01 20:21] VITALS: BP 125/77; PULSE 91; RESP 18
[2018-09-01] MEDS: INSULIN GLARGINE [LANTus] (100 UNITS/ML) SYG SC SCH (21:58)
[2018-09-01] MEDS: ATORVASTATIN 40 MG TAB PO SCH (21:59)
[2018-09-02] MEDS: PIPER-TAZO 3.375 GM IV (PMX) 100 ML IVPB SCH ×2 (00:36→06:39)
[2018-09-02] MEDS: ACCU-CHEK XX SCH (02:00)
[2018-09-02 02:43] VITALS: BP 115/69; PULSE 78; RESP 18
[2018-09-02] MEDS: VANCOMYCIN HCL 1.5 GM in SOD CHLORIDE 0.9% 250 ML IVPB SCH ×2 (04:00→17:45)
[2018-09-02] MEDS: PANTOPRAZOLE (EC) 40 MG TAB PO SCH (06:35)
[2018-09-02] MEDS: LEVOFLOXACIN 500 MG TAB PO SCH (06:36)
[2018-09-02 07:37] VITALS: BP 135/103; PULSE 82; RESP 18
[2018-09-02] MEDS: INSULIN ASPART [NOVOLOG] 3 ML PEN SC SCH ×7 (07:57→21:00)
[2018-09-02] MEDS: PREDNISOLONE/SULFACETAMIDE 5 ML OPH BOTH EYES SCH ×4 (08:29→20:20)
[2018-09-02] MEDS: DOCUSATE SODIUM 100 MG CAP PO SCH ×2 (08:30→20:21)
[2018-09-02] MEDS: METOPROLOL 100 MG TAB PO SCH ×2 (08:30→20:21)
[2018-09-02] MEDS: LISINOPRIL 20 MG TAB PO SCH ×2 (08:31→20:22)
[2018-09-02] MEDS: PENTOXIFYLLINE (SR) 400 MG TAB PO SCH ×3 (08:31→20:25)
[2018-09-02] MEDS: CILOSTAZOL 100 MG TAB PO SCH ×2 (08:31→20:21)
[2018-09-02] MEDS: ALLOPURINOL 300 MG TAB PO SCH (08:31)
[2018-09-02] MEDS: AMLODIPINE 10 MG TAB PO SCH (08:31)
[2018-09-02] MEDS: DAKINS 0.0125%(1/40) 473 ML SOLUTION TP SCH (08:32)
[2018-09-02] MEDS: HEPARIN 5,000 UNIT/1 ML VIAL SC SCH ×2 (08:33→20:27)
--- NOTE | 2018-09-02 10:21 | PN ---
Date/Time of Note Date/Time of Note DATE: 09/02/18 TIME: 10:18 Assessment/Plan VTE Prophylaxis Risk score (from Ns)>0 risk: 6 SCD applied (from Ns): No SCD contraindicated: other Pharmacological prophylaxis: heparin Lines/Catheters [facility] ([facility] PICC Line Central line still needed: Yes Urinary Cath still in place: No Assessment/Plan Hospital Course SUBJECTIVE: No acute overnight episodes. OBJECTIVE: Vital signs-see below PHYSICAL EXAM: Constitutional: Adequately built,not in acute distress. HEENT: Head atraumatic and normocephalic. Eyes: Blind NECK: Supple without lymph node. CHEST: Clear and good breath sounds equally. No wheezing. No rhonchi. HEART: S1, S2. Regular rate and rhythm. ABDOMEN: Soft/non tender with no rebound tenderness. Bowel sounds were present. EXTREMITIES: Right big toe oozing purulent ulcer w/surrounding edema/erythema on rt foot/covered w/dressing, c/d/i. No cyanosis, clubbing or edema. NEUROLOGIC: Alert and oriented x3. No focal deficit. No sensory deficit. PSYCHOSOCIAL: No signs of depression. INTEGUMENTARY: No open wounds. ASSESSMENT AND PLAN:58-year-old male with diabetes, legally blind, here with worsening right great toe DM ulcer draining purulent.... Right foot cellulitis with right first toe osteomyelitis/purulent DM ulcer. -Patient opted for salvage trial, on long-term IV antibiotics. -Continue wound care per podiatry recommendations. Staph bacteremia secondary to right foot cellulitis -We will repeat blood cultures. Antibiotics per ID. Peripheral arterial disease Plan is possible arteriogram, timing/scheduling per vascular team. -On Trental/pletal -Continue to optimize neurovascular status with antihypertensives to keep blood pressure ~140/90, diet, nutrition, exercise, blood glucose control, and antiplatelets/anticoagulation. Type 2 diabetes, poorly controlled -Improved glycemic trends. Continue with basal/bolus insulin -Diabetic education Essential hypertension -Adequately controlled. Continue CCB/ACEi/BB Chronic normocytic anemia -Stable H&H. Continue monitoring. Legally blind Supportive care. Eyedrops as instructed. DVT prophylaxis: Heparin Disposition: Continue current management. Follow-up vascular and podiatry recommendations. Patient was seen in collaboration with Dr. Giraldo Result Diagram: 09/02/18 0442 09/02/18 0442 Results 24hrs Laboratory Tests Test 09/01/18 13:02 09/01/18 17:40 09/01/18 21:55 09/02/18 04:42 Bedside Glucose 136 121 120 White Blood Count 3.6 L Red Blood Count 4.03 L Hemoglobin 10.7 L Hematocrit 35.0 L Mean Corpuscular 86.8 Volume Mean Corpuscular 26.6 L Hemoglobin Mean Corpuscular 30.6 L Hemoglobin Concent Red Cell 13.7 Distribution Width Platelet Count 265 Mean Platelet Volume 10.4 Immature 0.600 H Granulocytes % Neutrophils % 57.6 Lymphocytes % 28.5 Monocytes % 9.0 Eosinophils % 3.7 Basophils % 0.6 Nucleated Red Blood 0.0 Cells % Immature 0.020 Granulocytes # Neutrophils # 2.1 Lymphocytes # 1.0 Monocytes # 0.3 Eosinophils # 0.1 Basophils # 0.0 Nucleated Red Blood 0.0 Cells # Sodium Level 141 Potassium Level 3.7 Chloride Level 108 Carbon Dioxide Level 26 Anion Gap 7 Blood Urea Nitrogen 9 Creatinine 1.06 Est Glomerular > 60 Filtrat Rate mL/min Glucose Level 114 # Calcium Level 8.6 Test 09/02/18 07:57 Bedside Glucose 104 Exam/Review of Systems Exam Vitals Vital Signs Date Temp Pulse Resp B/P (MAP) Pulse Ox O2 O2 Flow FiO2 Time Delivery Rate 09/02/18 97.8 82 18 135/103 98 Room Air 07:37 (114) Intake and Output 09/01/18 09/01/18 09/02/18 1515:00 23:00 07:00 IntakeIntake Total 1430 ml 750 ml 350 ml OutputOutput Total 400 ml 700 ml 850 ml BalanceBalance 1030 ml 50 ml -500 ml Results Results 24hrs Laboratory Tests Test 09/01/18 13:02 09/01/18 17:40 09/01/18 21:55 09/02/18 04:42 Bedside Glucose 136 121 120 White Blood Count 3.6 L Red Blood Count 4.03 L Hemoglobin 10.7 L Hematocrit 35.0 L Mean Corpuscular 86.8 Volume Mean Corpuscular 26.6 L Hemoglobin Mean Corpuscular 30.6 L Hemoglobin Concent Red Cell 13.7 Distribution Width Platelet Count 265 Mean Platelet Volume 10.4 Immature 0.600 H Granulocytes % Neutrophils % 57.6 Lymphocytes % 28.5 Monocytes % 9.0 Eosinophils % 3.7 Basophils % 0.6 Nucleated Red Blood 0.0 Cells % Immature 0.020 Granulocytes # Neutrophils # 2.1 Lymphocytes # 1.0 Monocytes # 0.3 Eosinophils # 0.1 Basophils # 0.0 Nucleated Red Blood 0.0 Cells # Sodium Level 141 Potassium Level 3.7 Chloride Level 108 Carbon Dioxide Level 26 Anion Gap 7 Blood Urea Nitrogen 9 Creatinine 1.06 Est Glomerular > 60 Filtrat Rate mL/min Glucose Level 114 # Calcium Level 8.6 Test 09/02/18 07:57 Bedside Glucose 104 Medications Medication Current Medications IV Flush (NS 3 ml) 3 ml PER PROTOCOL IV ; Start 08/29/18 at 06:00 Ondansetron HCl (Zofran Inj) 4 mg Q6H PRN IV NAUSEA/VOMITING; Start 08/29/18 at 06:00 Acetaminophen (Tylenol Tab) 650 mg Q6H PRN PO .PAIN 1-3 OR TEMP Last administered on 08/29/18at 21:55; Admin Dose 650 MG; Start 08/29/18 at 06:00 Heparin Sodium (Porcine) (Heparin (5000 Units/1ml)) 5,000 unit Q12 SC Last administered on 09/02/18 08:33; Admin Dose 5,000 UNIT; Start 08/29/18 at 09:00 Albuterol/ Ipratropium (Duoneb) 3 ml Q2H RESP THERAPY PRN HHN SHORTNESS OF BREATH; Start 08/29/18 at 06:00 Diagnostic Test (Pha) (Accu-Chek) 1 ea 02 XX Last administered on 08/30/18at 02:42; Admin Dose 1 EA; Start 08/30/18 at 02:00 Allopurinol (Zyloprim) 300 mg DAILY PO Last administered on 09/02/18 08:31; Admin Dose 300 MG; Start 08/29/18 at 09:00 Amlodipine Besylate (Norvasc) 10 mg DAILY PO Last administered on 09/02/18 08:31; Admin Dose 10 MG; Start 08/29/18 at 09:00 Docusate Sodium (Colace) 100 mg Q12 PO Last administered on 09/01/18 08:52; Admin Dose 100 MG; Start 08/29/18 at 09:00 Levofloxacin (Levaquin) 500 mg DAILY@06 PO Last administered on 09/02/18 06:36; Admin Dose 500 MG; Start 08/29/18 at 06:00 Metoprolol Tartrate (Lopressor) 100 mg BID PO Last administered on 09/02/18 08:30; Admin Dose 100 MG; Start 08/29/18 at 09:00 Pantoprazole (Protonix Tab) 40 mg DAILY@06 PO Last administered on 09/02/18 06:35; Admin Dose 40 MG; Start 08/29/18 at 06:00 Prednisolone/ Sulfacetamide (Blephamide Oph) 2 drop QID BOTH EYES Last administered on 09/02/18 08:29; Admin Dose 2 DROP; Start 08/29/18 at 09:00 Zolpidem Tartrate (Ambien) 5 mg HS MAY REPEAT X 1 PRN PO INSOMNIA; Start 08/29/18 at 06:00 Piperacillin Sod/ Tazobactam Sod 100 ml @ 200 mls/hr Q6 IVPB Last administered on 09/02/18 06:39; Admin Dose 200 MLS/HR; Start 08/29/18 at 14:23 Vancomycin HCl (Vanco Iv Per Pharmacy) VANCOMYCIN PER PHARMACY PER PROTOCOL XX ; Start 08/29/18 at 13:30 Insulin Aspart (Novolog Insulin Pen) NOVOLOG *MILD* ALGORITHM WITH MEALS BEDTIME SC Last administered on 08/31/18 08:15; Admin Dose 1 UNIT; Start 08/29/18 at 18:00 Vancomycin HCl 1.5 gm/Sodium Chloride 250 ml @ 83.333 mls/ hr Q12H IVPB Last administered on 09/02/18 04:00; Admin Dose 83.333 MLS/HR; Start 08/30/18 at 05:00 Acetaminophen/ Hydrocodone Bitart ([place] (5/325)) 1 tab Q4H PRN PO PAIN LEVEL 1-5 Last administered on 08/31/18 04:42; Admin Dose 1 TAB; Start 08/29/18 at 23:00 Acetaminophen/ Hydrocodone Bitart ([place] (5/325)) 2 tab Q4H PRN PO MODERATE PAIN LEVEL 4-6; Start 08/29/18 at 23:00 Insulin Aspart (Novolog Insulin Pen) 15 unit WITH MEALS SC Last administered on 09/02/18 08:00; Admin Dose 15 UNIT; Start 08/30/18 at 12:00 Insulin Glargine (Lantus) 48 units QHS SC Last administered on 09/01/18 21:58; Admin Dose 48 UNITS; Start 08/30/18 at 21:00 Sodium Hypochlorite (Dakins Diluted ()) 1 applic DAILY TP Last administered on 09/02/18 08:32; Admin Dose 1 APPLIC; Start 08/30/18 at 16:00 IV Flush (NS 10 ml) 10 ml PRN PRN IV IV PROTOCOL; Start 08/30/18 at 19:00 Lisinopril (Zestril) 40 mg BID PO Last administered on 09/02/18 08:31; Admin Dose 40 MG; Start 08/31/18 at 21:00 Atorvastatin Calcium (Lipitor) 40 mg HS PO Last administered on 09/01/18 21:59; Admin Dose 40 MG; Start 08/31/18 at 21:00 Pentoxifylline (Trental) 400 mg TID PO Last administered on 09/02/18 08:31; Admin Dose 400 MG; Start 08/31/18 at 13:00 Cilostazol (Pletal) 100 mg BID PO Last administered on 09/02/18 08:31; Admin Dose 100 MG; Start 08/31/18 at 21:00 Miscellaneous Information (*Rx Drug Level Order Reminder*) VANCOMYCIN TROUGH AT 1600 1600 ONCE XX ; Start 09/02/18 at 16:00; Stop 09/02/18 at 16:01 CINTIA JENSEN NP Sep 02, 2018 10:21
[2018-09-02 14:46] VITALS: BP 141/92; PULSE 86; RESP 18; RESP 88
--- NOTE | 2018-09-02 15:07 | CONS ---
Assessment/Plan Assessment/Plan Hospital Course (Demo Recall) no acute changes patient looks comfortable no fevers Blood culture on admission grew oxacillin sensitive staph aureus. Right toe wound culture grew Corynebacterium alphahemolytic strep and coag negative staph species Antimicrobials: Vancomycin, status post Zosyn Physical examination: Well-nourished well-developed middle-aged -[place] man who is alert in no distress. Patient is blind. Head atraumatic normocephalic neck is supple. Chest rise symmetrical, breath sounds diminished bases. Heart: S1-S2. Abdomen soft, bowel sounds present. Extremities with right foot erythema edema of right great toe Assessment: 1. KOLBY bacteremia, likely secondary to #2 2. Right foot cellulitis with osteomyelitis of great toe, status post I&D at bedside 3. Diabetes with diabetic neuropathy 4. Legally blind 5. Leukopenia and anemia Plan: Patient remains stable, since amputation is not going to be done recommend to treat with IV vancomycin for 6 weeks, renal function needs to be monitored closely. Will order 2D echo to rule out vegetations and repeat blood cultures Consultation Date/Type/Reason Admit Date/Time Aug 29, 2018 at 04:44 Initial Consult Date Type of Consult id Date/Time of Note DATE: 09/02/18 TIME: 15:06 Exam/Review of Systems Exam Vitals Vital Signs Date Temp Pulse Resp B/P (MAP) Pulse Ox O2 O2 Flow FiO2 Time Delivery Rate 09/02/18 98.5 86 88 141/92 97 Room Air 14:46 (108) Intake and Output 09/01/18 09/01/18 09/02/18 1515:00 23:00 07:00 IntakeIntake Total 1430 ml 750 ml 350 ml OutputOutput Total 400 ml 700 ml 850 ml BalanceBalance 1030 ml 50 ml -500 ml Results Result Diagram: 09/02/18 0442 09/02/18 0442 Results 24hrs Laboratory Tests Test 09/01/18 17:40 09/01/18 21:55 09/02/18 04:42 09/02/18 07:57 Bedside Glucose 121 120 104 White Blood Count 3.6 L Red Blood Count 4.03 L Hemoglobin 10.7 L Hematocrit 35.0 L Mean Corpuscular 86.8 Volume Mean Corpuscular 26.6 L Hemoglobin Mean Corpuscular 30.6 L Hemoglobin Concent Red Cell 13.7 Distribution Width Platelet Count 265 Mean Platelet Volume 10.4 Immature 0.600 H Granulocytes % Neutrophils % 57.6 Lymphocytes % 28.5 Monocytes % 9.0 Eosinophils % 3.7 Basophils % 0.6 Nucleated Red Blood 0.0 Cells % Immature 0.020 Granulocytes # Neutrophils # 2.1 Lymphocytes # 1.0 Monocytes # 0.3 Eosinophils # 0.1 Basophils # 0.0 Nucleated Red Blood 0.0 Cells # Sodium Level 141 Potassium Level 3.7 Chloride Level 108 Carbon Dioxide Level 26 Anion Gap 7 Blood Urea Nitrogen 9 Creatinine 1.06 Est Glomerular > 60 Filtrat Rate mL/min Glucose Level 114 # Calcium Level 8.6 Test 09/02/18 12:31 Bedside Glucose 100 Medications Medication Current Medications IV Flush (NS 3 ml) 3 ml PER PROTOCOL IV ; Start 08/29/18 at 06:00 Ondansetron HCl (Zofran Inj) 4 mg Q6H PRN IV NAUSEA/VOMITING; Start 08/29/18 at 06:00 Acetaminophen (Tylenol Tab) 650 mg Q6H PRN PO .PAIN 1-3 OR TEMP Last administered on 08/29/18at 21:55; Admin Dose 650 MG; Start 08/29/18 at 06:00 Heparin Sodium (Porcine) (Heparin (5000 Units/1ml)) 5,000 unit Q12 SC Last administered on 09/02/18 08:33; Admin Dose 5,000 UNIT; Start 08/29/18 at 09:00 Albuterol/ Ipratropium (Duoneb) 3 ml Q2H RESP THERAPY PRN HHN SHORTNESS OF BREATH; Start 08/29/18 at 06:00 Diagnostic Test (Pha) (Accu-Chek) 1 ea 02 XX Last administered on 08/30/18 02:42; Admin Dose 1 EA; Start 08/30/18 at 02:00 Allopurinol (Zyloprim) 300 mg DAILY PO Last administered on 09/02/18 08:31; Admin Dose 300 MG; Start 08/29/18 at 09:00 Amlodipine Besylate (Norvasc) 10 mg DAILY PO Last administered on 09/02/18 08:31; Admin Dose 10 MG; Start 08/29/18 at 09:00 Docusate Sodium (Colace) 100 mg Q12 PO Last administered on 09/01/18 08:52; Admin Dose 100 MG; Start 08/29/18 at 09:00 Levofloxacin (Levaquin) 500 mg DAILY@06 PO Last administered on 09/02/18 06:36; Admin Dose 500 MG; Start 08/29/18 at 06:00 Metoprolol Tartrate (Lopressor) 100 mg BID PO Last administered on 09/02/18 08:30; Admin Dose 100 MG; Start 08/29/18 at 09:00 Pantoprazole (Protonix Tab) 40 mg DAILY@06 PO Last administered on 09/02/18 06:35; Admin Dose 40 MG; Start 08/29/18 at 06:00 Prednisolone/ Sulfacetamide (Blephamide Oph) 2 drop QID BOTH EYES Last administered on 09/02/18 12:32; Admin Dose 2 DROP; Start 08/29/18 at 09:00 Zolpidem Tartrate (Ambien) 5 mg HS MAY REPEAT X 1 PRN PO INSOMNIA; Start 08/29/18 at 06:00 Vancomycin HCl (Vanco Iv Per Pharmacy) VANCOMYCIN PER PHARMACY PER PROTOCOL XX ; Start 08/29/18 at 13:30 Insulin Aspart (Novolog Insulin Pen) NOVOLOG *MILD* ALGORITHM WITH MEALS BEDTIME SC Last administered on 08/31/18 08:15; Admin Dose 1 UNIT; Start 08/29/18 at 18:00 Vancomycin HCl 1.5 gm/Sodium Chloride 250 ml @ 83.333 mls/ hr Q12H IVPB Last administered on 09/02/18 04:00; Admin Dose 83.333 MLS/HR; Start 08/30/18 at 05:00 Acetaminophen/ Hydrocodone Bitart ([place] (5/325)) 1 tab Q4H PRN PO PAIN LEVEL 1-5 Last administered on 08/31/18 04:42; Admin Dose 1 TAB; Start 08/29/18 at 23:00 Acetaminophen/ Hydrocodone Bitart ([place] (5/325)) 2 tab Q4H PRN PO MODERATE PAIN LEVEL 4-6; Start 08/29/18 at 23:00 Insulin Aspart (Novolog Insulin Pen) 15 unit WITH MEALS SC Last administered on 09/02/18 12:34; Admin Dose 15 UNIT; Start 08/30/18 at 12:00 Insulin Glargine (Lantus) 48 units QHS SC Last administered on 09/01/18 21:58; Admin Dose 48 UNITS; Start 08/30/18 at 21:00 Sodium Hypochlorite (Dakins Diluted ()) 1 applic DAILY TP Last administered on 09/02/18 08:32; Admin Dose 1 APPLIC; Start 08/30/18 at 16:00 IV Flush (NS 10 ml) 10 ml PRN PRN IV IV PROTOCOL; Start 08/30/18 at 19:00 Lisinopril (Zestril) 40 mg BID PO Last administered on 09/02/18 08:31; Admin Dose 40 MG; Start 08/31/18 at 21:00 Atorvastatin Calcium (Lipitor) 40 mg HS PO Last administered on 09/01/18 21:59; Admin Dose 40 MG; Start 08/31/18 at 21:00 Pentoxifylline (Trental) 400 mg TID PO Last administered on 09/02/18 12:32; Admin Dose 400 MG; Start 08/31/18 at 13:00 Cilostazol (Pletal) 100 mg BID PO Last administered on 09/02/18 08:31; Admin Dose 100 MG; Start 08/31/18 at 21:00 Miscellaneous Information (*Rx Drug Level Order Reminder*) VANCOMYCIN TROUGH AT 1600 1600 ONCE XX ; Start 09/02/18 at 16:00; Stop 09/02/18 at 16:01 JUVENAL SANCHEZ NP Sep 02, 2018 15:07
[2018-09-02 19:39] VITALS: BP 157/95; PULSE 86; RESP 20
[2018-09-02] MEDS: ATORVASTATIN 40 MG TAB PO SCH (20:21)
[2018-09-02] MEDS: INSULIN GLARGINE [LANTus] (100 UNITS/ML) SYG SC SCH (21:16)
[2018-09-03 01:40] VITALS: BP 138/90; PULSE 93; RESP 18
[2018-09-03] MEDS: ACCU-CHEK XX SCH (01:48)
[2018-09-03] MEDS: VANCOMYCIN HCL 1.5 GM in SOD CHLORIDE 0.9% 250 ML IVPB SCH ×2 (04:58→17:09)
[2018-09-03] MEDS: PANTOPRAZOLE (EC) 40 MG TAB PO SCH (05:03)
[2018-09-03] MEDS: LEVOFLOXACIN 500 MG TAB PO SCH (05:03)
[2018-09-03 08:00] VITALS: BP 122/76; PULSE 87; RESP 18
[2018-09-03] MEDS: INSULIN ASPART [NOVOLOG] 3 ML PEN SC SCH ×7 (08:00→20:51)
[2018-09-03] MEDS: ALLOPURINOL 300 MG TAB PO SCH (08:40)
[2018-09-03] MEDS: CILOSTAZOL 100 MG TAB PO SCH ×2 (08:40→20:41)
[2018-09-03] MEDS: PENTOXIFYLLINE (SR) 400 MG TAB PO SCH ×3 (08:40→20:40)
[2018-09-03] MEDS: PREDNISOLONE/SULFACETAMIDE 5 ML OPH BOTH EYES SCH ×4 (08:40→20:42)
[2018-09-03] MEDS: AMLODIPINE 10 MG TAB PO SCH (08:41)
[2018-09-03] MEDS: LISINOPRIL 20 MG TAB PO SCH ×2 (08:41→20:40)
[2018-09-03] MEDS: METOPROLOL 100 MG TAB PO SCH ×2 (08:41→20:41)
[2018-09-03] MEDS: DOCUSATE SODIUM 100 MG CAP PO SCH ×2 (08:42→20:40)
[2018-09-03] MEDS: DAKINS 0.0125%(1/40) 473 ML SOLUTION TP SCH (08:44)
--- NOTE | 2018-09-03 11:02 | PN ---
Date/Time of Note Date/Time of Note DATE: 09/03/18 TIME: 10:59 Assessment/Plan VTE Prophylaxis Risk score (from Ns)>0 risk: 3 SCD applied (from Ns): No SCD contraindicated: other Pharmacological prophylaxis: heparin Lines/Catheters IV Catheter Type (from [facility]): PICC Line Central line still needed: Yes Urinary Cath still in place: No Assessment/Plan Hospital Course SUBJECTIVE: No acute overnight episodes. OBJECTIVE: Vital signs-see below PHYSICAL EXAM: Constitutional: Adequately built,not in acute distress. HEENT: Head atraumatic and normocephalic. Eyes: Blind NECK: Supple without lymph node. CHEST: Clear and good breath sounds equally. No wheezing. No rhonchi. HEART: S1, S2. Regular rate and rhythm. ABDOMEN: Soft/non tender with no rebound tenderness. Bowel sounds were present. EXTREMITIES: Right big toe oozing purulent ulcer w/surrounding edema/erythema on rt foot/covered w/dressing, c/d/i. No cyanosis, clubbing or edema. NEUROLOGIC: Alert and oriented x3. No focal deficit. No sensory deficit. PSYCHOSOCIAL: No signs of depression. INTEGUMENTARY: No open wounds. ASSESSMENT AND PLAN:58-year-old male with diabetes, legally blind, here with worsening right great toe DM ulcer draining purulent.... Right foot cellulitis with right first toe osteomyelitis/purulent DM ulcer. -Patient opted for salvage trial, on long-term IV antibiotics. -Continue wound care per podiatry recommendations. Staph bacteremia secondary to right foot cellulitis -f./u repeat blood cultures. Antibiotics per ID. Peripheral arterial disease Plan is RLE angiogram today -On Trental/pletal -Continue to optimize neurovascular status with antihypertensives to keep blood pressure ~140/90, diet, nutrition, exercise, blood glucose control, and antiplatelets/anticoagulation. Type 2 diabetes, poorly controlled -Improved glycemic trends. Continue with basal/bolus insulin -Diabetic education Essential hypertension -Adequately controlled. Continue CCB/ACEi/BB Chronic normocytic anemia -Stable H&H. Continue monitoring. Legally blind Supportive care. Eyedrops as instructed. DVT prophylaxis: Heparin Disposition: Continue current management. For vascular intervention today. Follow-up vascular and podiatry recommendations. [facility] for HH for 8 wks IV vanco,wound care. Patient was seen in collaboration with Dr. Giraldo Result Diagram: 09/03/18 0459 09/03/18 0459 Results 24hrs Laboratory Tests Test 09/02/18 12:31 09/02/18 16:09 09/02/18 17:44 09/02/18 21:10 Bedside Glucose 100 127 101 Vancomycin Level 14.7 Trough Test 09/03/18 04:59 09/03/18 08:33 White Blood Count 4.1 L Red Blood Count 3.89 L Hemoglobin 10.6 L Hematocrit 34.4 L Mean Corpuscular 88.4 Volume Mean Corpuscular 27.2 L Hemoglobin Mean Corpuscular 30.8 L Hemoglobin Concent Red Cell 13.9 Distribution Width Platelet Count 241 Mean Platelet Volume 10.4 Immature 0.700 H Granulocytes % Neutrophils % 60.8 Lymphocytes % 25.8 Monocytes % 8.8 Eosinophils % 3.2 Basophils % 0.7 Nucleated Red Blood 0.0 Cells % Immature 0.030 Granulocytes # Neutrophils # 2.5 Lymphocytes # 1.1 Monocytes # 0.4 Eosinophils # 0.1 Basophils # 0.0 Nucleated Red Blood 0.0 Cells # Sodium Level 140 Potassium Level 3.7 Chloride Level 109 Carbon Dioxide Level 25 Anion Gap 6 Blood Urea Nitrogen 11 Creatinine 1.01 Est Glomerular > 60 Filtrat Rate mL/min Glucose Level 200 Calcium Level 8.9 Bedside Glucose 137 Exam/Review of Systems Exam Vitals Vital Signs Date Temp Pulse Resp B/P (MAP) Pulse Ox O2 O2 Flow FiO2 Time Delivery Rate 09/03/18 98.4 87 18 122/76 99 08:00 (91) 09/02/18 Room Air 14:46 Intake and Output 09/02/18 09/02/18 09/03/18 1515:00 23:00 07:00 IntakeIntake Total 460 ml 490 ml 740 ml OutputOutput Total 375 ml 400 ml BalanceBalance 85 ml 490 ml 340 ml Results Results 24hrs Laboratory Tests Test 09/02/18 12:31 09/02/18 16:09 09/02/18 17:44 09/02/18 21:10 Bedside Glucose 100 127 101 Vancomycin Level 14.7 Trough Test 09/03/18 04:59 09/03/18 08:33 White Blood Count 4.1 L Red Blood Count 3.89 L Hemoglobin 10.6 L Hematocrit 34.4 L Mean Corpuscular 88.4 Volume Mean Corpuscular 27.2 L Hemoglobin Mean Corpuscular 30.8 L Hemoglobin Concent Red Cell 13.9 Distribution Width Platelet Count 241 Mean Platelet Volume 10.4 Immature 0.700 H Granulocytes % Neutrophils % 60.8 Lymphocytes % 25.8 Monocytes % 8.8 Eosinophils % 3.2 Basophils % 0.7 Nucleated Red Blood 0.0 Cells % Immature 0.030 Granulocytes # Neutrophils # 2.5 Lymphocytes # 1.1 Monocytes # 0.4 Eosinophils # 0.1 Basophils # 0.0 Nucleated Red Blood 0.0 Cells # Sodium Level 140 Potassium Level 3.7 Chloride Level 109 Carbon Dioxide Level 25 Anion Gap 6 Blood Urea Nitrogen 11 Creatinine 1.01 Est Glomerular > 60 Filtrat Rate mL/min Glucose Level 200 Calcium Level 8.9 Bedside Glucose 137 Medications Medication Current Medications IV Flush (NS 3 ml) 3 ml PER PROTOCOL IV ; Start 08/29/18 at 06:00 Ondansetron HCl (Zofran Inj) 4 mg Q6H PRN IV NAUSEA/VOMITING; Start 08/29/18 at 06:00 Acetaminophen (Tylenol Tab) 650 mg Q6H PRN PO .PAIN 1-3 OR TEMP Last administered on 08/29/18at 21:55; Admin Dose 650 MG; Start 08/29/18 at 06:00 Heparin Sodium (Porcine) (Heparin (5000 Units/1ml)) 5,000 unit Q12 SC Last administered on 09/02/18at 20:27; Admin Dose 5,000 UNIT; Start 08/29/18 at 09:00 Albuterol/ Ipratropium (Duoneb) 3 ml Q2H RESP THERAPY PRN HHN SHORTNESS OF BREATH; Start 08/29/18 at 06:00 Diagnostic Test (Pha) (Accu-Chek) 1 ea 02 XX Last administered on 08/30/18at 02:42; Admin Dose 1 EA; Start 08/30/18 at 02:00 Allopurinol (Zyloprim) 300 mg DAILY PO Last administered on 09/03/18 08:40; Admin Dose 300 MG; Start 08/29/18 at 09:00 Amlodipine Besylate (Norvasc) 10 mg DAILY PO Last administered on 09/03/18 08:41; Admin Dose 10 MG; Start 08/29/18 at 09:00 Docusate Sodium (Colace) 100 mg Q12 PO Last administered on 09/02/18 20:21; Admin Dose 100 MG; Start 08/29/18 at 09:00 Levofloxacin (Levaquin) 500 mg DAILY@06 PO Last administered on 09/03/18 05:03; Admin Dose 500 MG; Start 08/29/18 at 06:00 Metoprolol Tartrate (Lopressor) 100 mg BID PO Last administered on 09/03/18 08:41; Admin Dose 100 MG; Start 08/29/18 at 09:00 Pantoprazole (Protonix Tab) 40 mg DAILY@06 PO Last administered on 09/03/18 05:03; Admin Dose 40 MG; Start 08/29/18 at 06:00 Prednisolone/ Sulfacetamide (Blephamide Oph) 2 drop QID BOTH EYES Last administered on 09/03/18 08:40; Admin Dose 2 DROP; Start 08/29/18 at 09:00 Zolpidem Tartrate (Ambien) 5 mg HS MAY REPEAT X 1 PRN PO INSOMNIA; Start 08/29/18 at 06:00 Vancomycin HCl (Vanco Iv Per Pharmacy) VANCOMYCIN PER PHARMACY PER PROTOCOL XX ; Start 08/29/18 at 13:30 Insulin Aspart (Novolog Insulin Pen) NOVOLOG *MILD* ALGORITHM WITH MEALS BEDTIME SC Last administered on 08/31/18 08:15; Admin Dose 1 UNIT; Start 08/29/18 at 18:00 Vancomycin HCl 1.5 gm/Sodium Chloride 250 ml @ 83.333 mls/ hr Q12H IVPB Last administered on 09/03/18 04:58; Admin Dose 83.333 MLS/HR; Start 08/30/18 at 05:00 Acetaminophen/ Hydrocodone Bitart ([place] (5/325)) 1 tab Q4H PRN PO PAIN LEVEL 1-5 Last administered on 08/31/18 04:42; Admin Dose 1 TAB; Start 08/29/18 at 23:00 Acetaminophen/ Hydrocodone Bitart ([place] (5/325)) 2 tab Q4H PRN PO MODERATE PAIN LEVEL 4-6; Start 08/29/18 at 23:00 Insulin Aspart (Novolog Insulin Pen) 15 unit WITH MEALS SC Last administered on 09/03/18 08:38; Admin Dose 15 UNIT; Start 08/30/18 at 12:00 Insulin Glargine (Lantus) 48 units QHS SC Last administered on 09/02/18 21:16; Admin Dose 48 UNITS; Start 08/30/18 at 21:00 Sodium Hypochlorite (Dakins Diluted ()) 1 applic DAILY TP Last administered on 09/03/18 08:44; Admin Dose 1 APPLIC; Start 08/30/18 at 16:00 IV Flush (NS 10 ml) 10 ml PRN PRN IV IV PROTOCOL; Start 08/30/18 at 19:00 Lisinopril (Zestril) 40 mg BID PO Last administered on 09/03/18 08:41; Admin Dose 40 MG; Start 08/31/18 at 21:00 Atorvastatin Calcium (Lipitor) 40 mg HS PO Last administered on 09/02/18 20:21; Admin Dose 40 MG; Start 08/31/18 at 21:00 Pentoxifylline (Trental) 400 mg TID PO Last administered on 09/03/18 08:40; Admin Dose 400 MG; Start 08/31/18 at 13:00 Cilostazol (Pletal) 100 mg BID PO Last administered on 09/03/18 08:40; Admin Dose 100 MG; Start 08/31/18 at 21:00 CINTIA JENSEN NP Sep 03, 2018 11:02
[2018-09-03] MEDS: HEPARIN 5,000 UNIT/1 ML VIAL SC SCH ×2 (12:02→20:44)
--- NOTE | 2018-09-03 12:27 | CONS ---
Assessment/Plan Assessment/Plan Hospital Course (Demo Recall) no acute changes WBC 4.1 platelets 241 no shift BUN 11 creatinine 1.01. Vanco trough yesterday 14.7 Blood culture on admission grew oxacillin sensitive staph aureus. Right toe wound culture grew Corynebacterium alphahemolytic strep and coag negative staph species Antimicrobials: Vancomycin Physical examination: Well-nourished well-developed middle-aged -Citizen Of [place] man who is alert in no distress. Patient is blind. Head atraumatic normocephalic neck is supple. Chest rise symmetrical, breath sounds diminished bases. Heart: S1-S2. Abdomen soft, bowel sounds present. Extremities with right foot erythema edema of right great toe Assessment: 1. KOLBY bacteremia, likely secondary to #2 2. Right foot cellulitis with osteomyelitis of great toe, status post I&D at bedside 3. Diabetes with diabetic neuropathy 4. Legally blind 5. Leukopenia and anemia Plan: Stable, repeat bld cx neg preliminary, pending 2D ECHO, pt to continue IV Vanco for 6 weeks, pending angiogram Consultation Date/Type/Reason Admit Date/Time Aug 29, 2018 at 04:44 Initial Consult Date Type of Consult id Date/Time of Note DATE: 09/03/18 TIME: 12:24 Exam/Review of Systems Exam Vitals Vital Signs Date Temp Pulse Resp B/P (MAP) Pulse Ox O2 O2 Flow FiO2 Time Delivery Rate 09/03/18 98.4 87 18 122/76 99 08:00 (91) 09/02/18 Room Air 14:46 Intake and Output 09/02/18 09/02/18 09/03/18 1515:00 23:00 07:00 IntakeIntake Total 460 ml 490 ml 740 ml OutputOutput Total 375 ml 400 ml BalanceBalance 85 ml 490 ml 340 ml Results Result Diagram: 09/03/18 0459 09/03/18 0459 Results 24hrs Laboratory Tests Test 09/02/18 12:31 09/02/18 16:09 09/02/18 17:44 09/02/18 21:10 Bedside Glucose 100 127 101 Vancomycin Level 14.7 Trough Test 09/03/18 04:59 09/03/18 08:33 White Blood Count 4.1 L Red Blood Count 3.89 L Hemoglobin 10.6 L Hematocrit 34.4 L Mean Corpuscular 88.4 Volume Mean Corpuscular 27.2 L Hemoglobin Mean Corpuscular 30.8 L Hemoglobin Concent Red Cell 13.9 Distribution Width Platelet Count 241 Mean Platelet Volume 10.4 Immature 0.700 H Granulocytes % Neutrophils % 60.8 Lymphocytes % 25.8 Monocytes % 8.8 Eosinophils % 3.2 Basophils % 0.7 Nucleated Red Blood 0.0 Cells % Immature 0.030 Granulocytes # Neutrophils # 2.5 Lymphocytes # 1.1 Monocytes # 0.4 Eosinophils # 0.1 Basophils # 0.0 Nucleated Red Blood 0.0 Cells # Sodium Level 140 Potassium Level 3.7 Chloride Level 109 Carbon Dioxide Level 25 Anion Gap 6 Blood Urea Nitrogen 11 Creatinine 1.01 Est Glomerular > 60 Filtrat Rate mL/min Glucose Level 200 Calcium Level 8.9 Bedside Glucose 137 Medications Medication Current Medications IV Flush (NS 3 ml) 3 ml PER PROTOCOL IV ; Start 08/29/18 at 06:00 Ondansetron HCl (Zofran Inj) 4 mg Q6H PRN IV NAUSEA/VOMITING; Start 08/29/18 at 06:00 Acetaminophen (Tylenol Tab) 650 mg Q6H PRN PO .PAIN 1-3 OR TEMP Last administered on 08/29/18at 21:55; Admin Dose 650 MG; Start 08/29/18 at 06:00 Heparin Sodium (Porcine) (Heparin (5000 Units/1ml)) 5,000 unit Q12 SC Last administered on 09/03/18at 12:02; Admin Dose 5,000 UNIT; Start 08/29/18 at 09:00 Albuterol/ Ipratropium (Duoneb) 3 ml Q2H RESP THERAPY PRN HHN SHORTNESS OF BREATH; Start 08/29/18 at 06:00 Diagnostic Test (Pha) (Accu-Chek) 1 ea 02 XX Last administered on 08/30/18at 02:42; Admin Dose 1 EA; Start 08/30/18 at 02:00 Allopurinol (Zyloprim) 300 mg DAILY PO Last administered on 09/03/18 08:40; Admin Dose 300 MG; Start 08/29/18 at 09:00 Amlodipine Besylate (Norvasc) 10 mg DAILY PO Last administered on 09/03/18 08:41; Admin Dose 10 MG; Start 08/29/18 at 09:00 Docusate Sodium (Colace) 100 mg Q12 PO Last administered on 09/02/18 20:21; Admin Dose 100 MG; Start 08/29/18 at 09:00 Levofloxacin (Levaquin) 500 mg DAILY@06 PO Last administered on 09/03/18 05:03; Admin Dose 500 MG; Start 08/29/18 at 06:00 Metoprolol Tartrate (Lopressor) 100 mg BID PO Last administered on 09/03/18 08:41; Admin Dose 100 MG; Start 08/29/18 at 09:00 Pantoprazole (Protonix Tab) 40 mg DAILY@06 PO Last administered on 09/03/18 05:03; Admin Dose 40 MG; Start 08/29/18 at 06:00 Prednisolone/ Sulfacetamide (Blephamide Oph) 2 drop QID BOTH EYES Last administered on 09/03/18 08:40; Admin Dose 2 DROP; Start 08/29/18 at 09:00 Zolpidem Tartrate (Ambien) 5 mg HS MAY REPEAT X 1 PRN PO INSOMNIA; Start 08/29/18 at 06:00 Vancomycin HCl (Vanco Iv Per Pharmacy) VANCOMYCIN PER PHARMACY PER PROTOCOL XX ; Start 08/29/18 at 13:30 Insulin Aspart (Novolog Insulin Pen) NOVOLOG *MILD* ALGORITHM WITH MEALS BEDTIME SC Last administered on 08/31/18 08:15; Admin Dose 1 UNIT; Start 08/29/18 at 18:00 Vancomycin HCl 1.5 gm/Sodium Chloride 250 ml @ 83.333 mls/ hr Q12H IVPB Last administered on 09/03/18 04:58; Admin Dose 83.333 MLS/HR; Start 08/30/18 at 05:00 Acetaminophen/ Hydrocodone Bitart ([place] (5/325)) 1 tab Q4H PRN PO PAIN LEVEL 1-5 Last administered on 08/31/18 04:42; Admin Dose 1 TAB; Start 08/29/18 at 23:00 Acetaminophen/ Hydrocodone Bitart ([place] (5/325)) 2 tab Q4H PRN PO MODERATE PAIN LEVEL 4-6; Start 08/29/18 at 23:00 Insulin Aspart (Novolog Insulin Pen) 15 unit WITH MEALS SC Last administered on 09/03/18 08:38; Admin Dose 15 UNIT; Start 08/30/18 at 12:00 Insulin Glargine (Lantus) 48 units QHS SC Last administered on 09/02/18 21:16; Admin Dose 48 UNITS; Start 08/30/18 at 21:00 Sodium Hypochlorite (Dakins Diluted ()) 1 applic DAILY TP Last administered on 09/03/18 08:44; Admin Dose 1 APPLIC; Start 08/30/18 at 16:00 IV Flush (NS 10 ml) 10 ml PRN PRN IV IV PROTOCOL; Start 08/30/18 at 19:00 Lisinopril (Zestril) 40 mg BID PO Last administered on 09/03/18 08:41; Admin Dose 40 MG; Start 08/31/18 at 21:00 Atorvastatin Calcium (Lipitor) 40 mg HS PO Last administered on 09/02/18 20:21; Admin Dose 40 MG; Start 08/31/18 at 21:00 Pentoxifylline (Trental) 400 mg TID PO Last administered on 09/03/18 08:40; Admin Dose 400 MG; Start 08/31/18 at 13:00 Cilostazol (Pletal) 100 mg BID PO Last administered on 09/03/18 08:40; Admin Dose 100 MG; Start 08/31/18 at 21:00 JUVENAL SANCHEZ NP Sep 03, 2018 12:27
[2018-09-03 13:57] VITALS: BP 130/92; PULSE 86; RESP 18
[2018-09-03] MEDS: ACETAMINOPHEN 325 MG TAB PO PRN (17:44)
[2018-09-03 20:00] VITALS: BP 148/95; PULSE 88; RESP 18
[2018-09-03] MEDS: ATORVASTATIN 40 MG TAB PO SCH (20:40)
[2018-09-03] MEDS: INSULIN GLARGINE [LANTus] (100 UNITS/ML) SYG SC SCH (20:51)
[2018-09-04] VITALS (10 sets, daily range): BP systolic 120–163; BP diastolic 66–92; PULSE 70–87; RESP 18–33
[2018-09-04] MEDS: ACCU-CHEK XX SCH (02:00)
[2018-09-04] MEDS: VANCOMYCIN HCL 1.5 GM in SOD CHLORIDE 0.9% 250 ML IVPB SCH ×2 (04:53→18:05)
[2018-09-04] MEDS: PANTOPRAZOLE (EC) 40 MG TAB PO SCH (06:00)
[2018-09-04] MEDS: LEVOFLOXACIN 500 MG TAB PO SCH (06:00)
[2018-09-04] MEDS: INSULIN ASPART [NOVOLOG] 3 ML PEN SC SCH ×7 (08:00→20:59)
[2018-09-04] MEDS: PREDNISOLONE/SULFACETAMIDE 5 ML OPH BOTH EYES SCH ×4 (08:11→21:12)
[2018-09-04] MEDS: METOPROLOL 100 MG TAB PO SCH ×2 (08:12→21:01)
[2018-09-04] MEDS: CILOSTAZOL 100 MG TAB PO SCH ×2 (08:12→21:00)
[2018-09-04] MEDS: AMLODIPINE 10 MG TAB PO SCH ×2 (08:12→13:46)
[2018-09-04] MEDS: DOCUSATE SODIUM 100 MG CAP PO SCH ×2 (08:12→21:01)
[2018-09-04] MEDS: ALLOPURINOL 300 MG TAB PO SCH (08:14)
[2018-09-04] MEDS: PENTOXIFYLLINE (SR) 400 MG TAB PO SCH ×3 (08:14→21:01)
[2018-09-04] MEDS: LISINOPRIL 20 MG TAB PO SCH ×3 (08:14→21:00)
[2018-09-04] MEDS: DAKINS 0.0125%(1/40) 473 ML SOLUTION TP SCH (08:15)
[2018-09-04] MEDS: HEPARIN 5,000 UNIT/1 ML VIAL SC SCH ×2 (08:24→21:08)
[2018-09-04] MEDS ORDERED: DEXTROSE 5%-0.45% NACL 1,000 ML IV SCH (10:30)
[2018-09-04] MEDS ORDERED: IODIXANOL LOCM 100 ML BTL ONE (11:15)
[2018-09-04] MEDS ORDERED: HEPARIN 1000 UNITS/ML 10 ML INJ ONE (11:15)
[2018-09-04] MEDS ORDERED: LIDOCAINE 1% (MDV) 20 ML INJ ONE (11:15)
[2018-09-04] MEDS ORDERED: SOD CHLORIDE 0.9% 500 ML ONE (11:16)
[2018-09-04] MEDS ORDERED: MIDAZOLAM 1 MG/ML 2 ML INJ ONE (11:16)
[2018-09-04] MEDS ORDERED: FENTAnyl 50 MCG/ML VIAL ONE (11:16)
--- NOTE | 2018-09-04 11:25 | PN ---
Date/Time of Note Date/Time of Note DATE: 09/04/18 TIME: 11:23 Assessment/Plan VTE Prophylaxis Risk score (from Nsg)>0 risk: 5 SCD applied (from Ns): No SCD contraindicated: other Pharmacological prophylaxis: heparin Lines/Catheters IV [facility]ter Type (from [facility] PICC Line Central line still needed: Yes Urinary Cath still in place: No Assessment/Plan Hospital Course SUBJECTIVE: No acute overnight episodes. OBJECTIVE: Vital signs-see below PHYSICAL EXAM: Constitutional: Adequately built,not in acute distress. HEENT: Head atraumatic and normocephalic. Eyes: Blind NECK: Supple without lymph node. CHEST: Clear and good breath sounds equally. No wheezing. No rhonchi. HEART: S1, S2. Regular rate and rhythm. ABDOMEN: Soft/non tender with no rebound tenderness. Bowel sounds were present. EXTREMITIES: Right big toe oozing purulent ulcer w/surrounding edema/erythema on rt foot/covered w/dressing, c/d/i. No cyanosis, clubbing or edema. NEUROLOGIC: Alert and oriented x3. No focal deficit. No sensory deficit. PSYCHOSOCIAL: No signs of depression. INTEGUMENTARY: No open wounds. ASSESSMENT AND PLAN:58-year-old male with diabetes, legally blind, here with worsening right great toe DM ulcer draining purulent.... Right foot cellulitis with right first toe osteomyelitis/purulent DM ulcer. -Patient opted for salvage trial, on long-term IV antibiotics. -Continue wound care per podiatry recommendations. Staph bacteremia secondary to right foot cellulitis -f./u repeat blood cultures. Antibiotics per ID. Peripheral arterial disease -Plan is RLE angiogram today -On Trental/pletal -Continue to optimize neurovascular status with antihypertensives to keep blood pressure ~140/90, diet, nutrition, exercise, blood glucose control, and antiplatelets/anticoagulation. Type 2 diabetes, poorly controlled -Improved glycemic trends. Continue with basal/bolus insulin -Diabetic education Essential hypertension -Adequately controlled. Continue CCB/ACEi/BB Chronic normocytic anemia -Stable H&H. Continue monitoring. Legally blind Supportive care. Eyedrops as instructed. DVT prophylaxis: Heparin Disposition: Continue current management. For vascular intervention today. Follow-up vascular and podiatry recommendations after angiogram and thinks. for HH for anticipation of 8 wks IV vanco,wound care. Patient was seen in collaboration with Dr. Giraldo Result Diagram: 09/04/18 0450 09/04/18 0450 Results 24hrs Laboratory Tests Test 09/03/18 12:48 09/03/18 17:46 09/03/18 20:48 09/04/18 04:50 Bedside Glucose 111 84 128 White Blood Count 4.2 L Red Blood Count 3.97 L Hemoglobin 10.6 L Hematocrit 34.8 L Mean Corpuscular 87.7 Volume Mean Corpuscular 26.7 L Hemoglobin Mean Corpuscular 30.5 L Hemoglobin Concent Red Cell Distribution 14.0 Width Platelet Count 209 Mean Platelet Volume 10.0 Immature Granulocytes 0.700 H % Neutrophils % 58.5 Lymphocytes % 28.7 Monocytes % 8.5 Eosinophils % 3.1 Basophils % 0.5 Nucleated Red Blood 0.0 Cells % Immature Granulocytes 0.030 # Neutrophils # 2.5 Lymphocytes # 1.2 Monocytes # 0.4 Eosinophils # 0.1 Basophils # 0.0 Nucleated Red Blood 0.0 Cells # Sodium Level 141 Potassium Level 3.7 Chloride Level 108 Carbon Dioxide Level 26 Anion Gap 7 Blood Urea Nitrogen 12 Creatinine 1.22 Est Glomerular > 60 Filtrat Rate mL/min Glucose Level 160 Calcium Level 8.9 Test 09/04/18 08:06 09/04/18 10:06 Bedside Glucose 95 76 Exam/Review of Systems Exam Vitals Vital Signs Date Temp Pulse Resp B/P (MAP) Pulse Ox O2 O2 Flow FiO2 Time Delivery Rate 09/04/18 98.2 86 18 144/82 98 Room Air 08:33 (102) Intake and Output 09/03/18 09/03/18 09/04/18 1414:59 22:59 06:59 IntakeIntake Total 1410 ml 490 ml OutputOutput Total 400 ml 475 ml 300 ml BalanceBalance 1010 ml 15 ml -300 ml Results Results 24hrs Laboratory Tests Test 09/03/18 12:48 09/03/18 17:46 09/03/18 20:48 09/04/18 04:50 Bedside Glucose 111 84 128 White Blood Count 4.2 L Red Blood Count 3.97 L Hemoglobin 10.6 L Hematocrit 34.8 L Mean Corpuscular 87.7 Volume Mean Corpuscular 26.7 L Hemoglobin Mean Corpuscular 30.5 L Hemoglobin Concent Red Cell Distribution 14.0 Width Platelet Count 209 Mean Platelet Volume 10.0 Immature Granulocytes 0.700 H % Neutrophils % 58.5 Lymphocytes % 28.7 Monocytes % 8.5 Eosinophils % 3.1 Basophils % 0.5 Nucleated Red Blood 0.0 Cells % Immature Granulocytes 0.030 # Neutrophils # 2.5 Lymphocytes # 1.2 Monocytes # 0.4 Eosinophils # 0.1 Basophils # 0.0 Nucleated Red Blood 0.0 Cells # Sodium Level 141 Potassium Level 3.7 Chloride Level 108 Carbon Dioxide Level 26 Anion Gap 7 Blood Urea Nitrogen 12 Creatinine 1.22 Est Glomerular > 60 Filtrat Rate mL/min Glucose Level 160 Calcium Level 8.9 Test 09/04/18 08:06 09/04/18 10:06 Bedside Glucose 95 76 Medications Medication Current Medications IV Flush (NS 3 ml) 3 ml PER PROTOCOL IV ; Start 08/29/18 at 06:00 Ondansetron HCl (Zofran Inj) 4 mg Q6H PRN IV NAUSEA/VOMITING; Start 08/29/18 at 06:00 Acetaminophen (Tylenol Tab) 650 mg Q6H PRN PO .PAIN 1-3 OR TEMP Last administered on 09/03/18at 17:44; Admin Dose 650 MG; Start 08/29/18 at 06:00 Heparin Sodium (Porcine) (Heparin (5000 Units/1ml)) 5,000 unit Q12 SC Last administered on 09/04/18at 08:24; Admin Dose 5,000 UNIT; Start 08/29/18 at 09:00 Albuterol/ Ipratropium (Duoneb) 3 ml Q2H RESP THERAPY PRN HHN SHORTNESS OF BREATH; Start 08/29/18 at 06:00 Diagnostic Test (Pha) (Accu-Chek) 1 ea 02 XX Last administered on 08/30/18at 02:42; Admin Dose 1 EA; Start 08/30/18 at 02:00 Allopurinol (Zyloprim) 300 mg DAILY PO Last administered on 09/03/18 08:40; Admin Dose 300 MG; Start 08/29/18 at 09:00 Amlodipine Besylate (Norvasc) 10 mg DAILY PO Last administered on 09/03/18 08:41; Admin Dose 10 MG; Start 08/29/18 at 09:00 Docusate Sodium (Colace) 100 mg Q12 PO Last administered on 09/03/18 20:40; Admin Dose 100 MG; Start 08/29/18 at 09:00 Levofloxacin (Levaquin) 500 mg DAILY@06 PO Last administered on 09/03/18 05:03; Admin Dose 500 MG; Start 08/29/18 at 06:00 Metoprolol Tartrate (Lopressor) 100 mg BID PO Last administered on 09/03/18 20:41; Admin Dose 100 MG; Start 08/29/18 at 09:00 Pantoprazole (Protonix Tab) 40 mg DAILY@06 PO Last administered on 09/03/18 05:03; Admin Dose 40 MG; Start 08/29/18 at 06:00 Prednisolone/ Sulfacetamide (Blephamide Oph) 2 drop QID BOTH EYES Last administered on 09/04/18 08:11; Admin Dose 2 DROP; Start 08/29/18 at 09:00 Zolpidem Tartrate (Ambien) 5 mg HS MAY REPEAT X 1 PRN PO INSOMNIA; Start 08/29/18 at 06:00 Vancomycin HCl (Vanco Iv Per Pharmacy) VANCOMYCIN PER PHARMACY PER PROTOCOL XX ; Start 08/29/18 at 13:30 Insulin Aspart (Novolog Insulin Pen) NOVOLOG *MILD* ALGORITHM WITH MEALS BEDTIME SC Last administered on 08/31/18 08:15; Admin Dose 1 UNIT; Start 08/29/18 at 18:00 Vancomycin HCl 1.5 gm/Sodium Chloride 250 ml @ 83.333 mls/ hr Q12H IVPB Last administered on 09/04/18 04:53; Admin Dose 83.333 MLS/HR; Start 08/30/18 at 05:00 Acetaminophen/ Hydrocodone Bitart ([place] (5/325)) 1 tab Q4H PRN PO PAIN LEVEL 1-5 Last administered on 08/31/18 04:42; Admin Dose 1 TAB; Start 08/29/18 at 23:00 Acetaminophen/ Hydrocodone Bitart ([place] (5/325)) 2 tab Q4H PRN PO MODERATE MARKEL N LEVEL 4-6; Start 08/29/18 at 23:00 Insulin Aspart (Novolog Insulin Pen) 15 unit WITH MEALS SC Last administered on 09/03/18 12:54; Admin Dose 15 UNIT; Start 08/30/18 at 12:00 Insulin Glargine (Lantus) 48 units QHS SC Last administered on 09/03/18 20:51; Admin Dose 48 UNITS; Start 08/30/18 at 21:00 Sodium Hypochlorite (Dakins Diluted ()) 1 applic DAILY TP Last administered on 09/04/18 08:15; Admin Dose 1 APPLIC; Start 08/30/18 at 16:00 IV Flush (NS 10 ml) 10 ml PRN PRN IV IV PROTOCOL; Start 08/30/18 at 19:00 Lisinopril (Zestril) 40 mg BID PO Last administered on 09/03/18 20:40; Admin Dose 40 MG; Start 08/31/18 at 21:00 Atorvastatin Calcium (Lipitor) 40 mg HS PO Last administered on 09/03/18 20:40; Admin Dose 40 MG; Start 08/31/18 at 21:00 Pentoxifylline (Trental) 400 mg TID PO Last administered on 09/03/18 20:40; Admin Dose 400 MG; Start 08/31/18 at 13:00 Cilostazol (Pletal) 100 mg BID PO Last administered on 09/03/18 20:41; Admin Dose 100 MG; Start 08/31/18 at 21:00 Dextrose/Sodium Chloride 1,000 ml @ 60 mls/hr [id number] IV Last administered on 09/04/18 10:24; Admin Dose 60 MLS/HR; Start 09/04/18 at 10:30 CINTIA JENSEN NP September 04, 2018 11:25
--- NOTE | 2018-09-04 11:38 | CONS ---
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 Appreciate vascular recommendations and plan for angiogram. Wound cultures showing polymicrobial growth. Copious irrigation to the wound site and betadine 4x4 gauze with dry sterile dressings applied. Reviewed X-rays and MRI results with patient and son and explained to them the severity of the infection and likely resulting in an amputation of the great toe. Patient refused amputation this time and only amenable to local wound care and IV abx. Will pursue with local wound care and appreciate IV abx recommendations per ID. Discussed possible procedures for salvage of the great toe. Consultation Date/Type/Reason Admit Date/Time Aug 29, 2018 at 04:44 Initial Consult Date Date/Time of Note DATE: 09/04/18 TIME: 11:37 24 HR Interval Summary Free Text/Dictation No acute events overnight Exam/Review of Systems Exam Vitals Vital Signs Date Temp Pulse Resp B/P (MAP) Pulse Ox O2 O2 Flow FiO2 Time Delivery Rate 09/04/18 98.2 86 18 144/82 98 Room Air 08:33 (102) Intake and Output 09/03/18 09/03/18 09/04/18 1515:00 23:00 07:00 IntakeIntake Total 1410 ml 490 ml OutputOutput Total 400 ml 475 ml 300 ml BalanceBalance 1010 ml 15 ml -300 ml Exam Pedal pulses palpable Skin temperature gradient warm to warm from proximal leg to distal feet Absent protective sensations Right hallux joint instability and crepitus appreciated with passive ROM Right hallux with epidermalysis noted. Medial aspect of hallux with ulceration 0.4 x 0.4 x 2cm which probes to bone and tunnels across to the lateral aspect of the hallux and to the metatarsal area. There is mild purulent drainage appreciated decreased erythema surrounding the 1st MPJ, no proximal streaking Muscle strength 5/5 in all compartments with the foot Foot X-ray IMPRESSION: 1. Osseous destruction of the right distal first metatarsal, the first proximal and distal phalanges consistent with osteomyelitis. Further evaluation with MRI examination is recommended. 2. Interval significant joint space loss involving the first metatarsophalangeal and first interphalangeal joints. 3. Diffuse soft tissue swelling of the dorsal midfoot right first digit. MRI Foot IMPRESSION: 1. Extensive osteomyelitis within the first digit involving the first distal phalanx, proximal phalanx, sesamoids, and metatarsal extending to the tarsometatarsal articulation with bony destructive changes. 2. Skin ulcer medial and plantar to the first toe at the level of the interphalangeal joint with a loculated fluid collection adjacent to the first proximal phalanx and metatarsal from an adjacent abscess measuring up to 8.5 in length proximal to distal. 3. Osteoarthrosis within the partially visualized first through third tarsometatarsal joints more prominent involving the second tarsometatarsal joint with high-grade chondral loss and mild marrow edema. non invasive arterial studies IMPRESSION: Monophasic waveforms in the posterior tibial artery and dorsalis pedis artery consistent with a significant infrapopliteal stenosis. Results Result Diagram: 09/04/18 0450 09/04/18 0450 Results 24hrs Laboratory Tests Test 09/03/18 12:48 09/03/18 17:46 09/03/18 20:48 09/04/18 04:50 Bedside Glucose 111 84 128 White Blood Count 4.2 L Red Blood Count 3.97 L Hemoglobin 10.6 L Hematocrit 34.8 L Mean Corpuscular 87.7 Volume Mean Corpuscular 26.7 L Hemoglobin Mean Corpuscular 30.5 L Hemoglobin Concent Red Cell Distribution 14.0 Width Platelet Count 209 Mean Platelet Volume 10.0 Immature Granulocytes 0.700 H % Neutrophils % 58.5 Lymphocytes % 28.7 Monocytes % 8.5 Eosinophils % 3.1 Basophils % 0.5 Nucleated Red Blood 0.0 Cells % Immature Granulocytes 0.030 # Neutrophils # 2.5 Lymphocytes # 1.2 Monocytes # 0.4 Eosinophils # 0.1 Basophils # 0.0 Nucleated Red Blood 0.0 Cells # Sodium Level 141 Potassium Level 3.7 Chloride Level 108 Carbon Dioxide Level 26 Anion Gap 7 Blood Urea Nitrogen 12 Creatinine 1.22 Est Glomerular > 60 Filtrat Rate mL/min Glucose Level 160 Calcium Level 8.9 Test 09/04/18 08:06 09/04/18 10:06 Bedside Glucose 95 76 Medications Medication Current Medications IV Flush (NS 3 ml) 3 ml PER PROTOCOL IV ; Start 08/29/18 at 06:00 Ondansetron HCl (Zofran Inj) 4 mg Q6H PRN IV NAUSEA/VOMITING; Start 08/29/18 at 06:00 Acetaminophen (Tylenol Tab) 650 mg Q6H PRN PO .PAIN 1-3 OR TEMP Last administered on 09/03/18 17:44; Admin Dose 650 MG; Start 08/29/18 at 06:00 Heparin Sodium (Porcine) (Heparin (5000 Units/1ml)) 5,000 unit Q12 SC Last administered on 09/04/18 08:24; Admin Dose 5,000 UNIT; Start 08/29/18 at 09:00 Albuterol/ Ipratropium (Duoneb) 3 ml Q2H RESP THERAPY PRN HHN SHORTNESS OF BREATH; Start 08/29/18 at 06:00 Diagnostic Test (Pha) (Accu-Chek) 1 ea 02 XX Last administered on 08/30/18 02:42; Admin Dose 1 EA; Start 08/30/18 at 02:00 Allopurinol (Zyloprim) 300 mg DAILY PO Last administered on 09/03/18 08:40; Admin Dose 300 MG; Start 08/29/18 at 09:00 Amlodipine Besylate (Norvasc) 10 mg DAILY PO Last administered on 09/03/18 08:41; Admin Dose 10 MG; Start 08/29/18 at 09:00 Docusate Sodium (Colace) 100 mg Q12 PO Last administered on 09/03/18 20:40; Admin Dose 100 MG; Start 08/29/18 at 09:00 Levofloxacin (Levaquin) 500 mg DAILY@06 PO Last administered on 09/03/18 05:03; Admin Dose 500 MG; Start 08/29/18 at 06:00 Metoprolol Tartrate (Lopressor) 100 mg BID PO Last administered on 09/03/18 20:41; Admin Dose 100 MG; Start 08/29/18 at 09:00 Pantoprazole (Protonix Tab) 40 mg DAILY@06 PO Last administered on 09/03/18 05:03; Admin Dose 40 MG; Start 08/29/18 at 06:00 Prednisolone/ Sulfacetamide (Blephamide Oph) 2 drop QID BOTH EYES Last administered on 09/04/18 08:11; Admin Dose 2 DROP; Start 08/29/18 at 09:00 Zolpidem Tartrate (Ambien) 5 mg HS MAY REPEAT X 1 PRN PO INSOMNIA; Start at 06:00 Vancomycin HCl (Vanco Iv Per Pharmacy) VANCOMYCIN PER PHARMACY PER PROTOCOL XX ; Start 08/29/18 at 13:30 Insulin Aspart (Novolog Insulin Pen) NOVOLOG *MILD* ALGORITHM WITH MEALS BEDTIME SC Last administered on 08/31/18 08:15; Admin Dose 1 UNIT; Start 08/29/18 at 18:00 Vancomycin HCl 1.5 gm/Sodium Chloride 250 ml @ 83.333 mls/ hr Q12H IVPB Last administered on 09/04/18 04:53; Admin Dose 83.333 MLS/HR; Start 08/30/18 at 05:00 Acetaminophen/ Hydrocodone Bitart ([place] (5/325)) 1 tab Q4H PRN PO PAIN LEVEL 1-5 Last administered on 08/31/18 04:42; Admin Dose 1 TAB; Start 08/29/18 at 23:00 Acetaminophen/ Hydrocodone Bitart ([place] (5/325)) 2 tab Q4H PRN PO MODERATE PAIN LEVEL 4-6; Start 08/29/18 at 23:00 Insulin Aspart (Novolog Insulin Pen) 15 unit WITH MEALS SC Last administered on 09/03/18 12:54; Admin Dose 15 UNIT; Start 08/30/18 at 12:00 Insulin Glargine (Lantus) 48 units QHS SC Last administered on 09/03/18 20:51; Admin Dose 48 UNITS; Start 08/30/18 at 21:00 Sodium Hypochlorite (Dakins Diluted (1/40)) 1 applic DAILY TP Last administered on 09/04/18 08:15; Admin Dose 1 APPLIC; Start 08/30/18 at 16:00 IV Flush (NS 10 ml) 10 ml PRN PRN IV IV PROTOCOL; Start 08/30/18 at 19:00 Lisinopril (Zestril) 40 mg BID PO Last administered on 09/03/18 20:40; Admin Dose 40 MG; Start 08/31/18 at 21:00 Atorvastatin Calcium (Lipitor) 40 mg HS PO Last administered on 09/03/18 20:40; Admin Dose 40 MG; Start 08/31/18 at 21:00 Pentoxifylline (Trental) 400 mg TID PO Last administered on 4/30/19at 20:40; Admin Dose 400 MG; Start 08/31/18 at 13:00 Cilostazol (Pletal) 100 mg BID PO Last administered on 09/03/18at 20:41; Admin Dose 100 MG; Start 08/31/18 at 21:00 Dextrose/Sodium Chloride 1,000 ml @ 60 mls/hr [id number] IV Last administered on 09/04/18at 10:24; Admin Dose 60 MLS/HR; Start 09/04/18 at 10:30 YEN DUENAS DPM September 04, 2018 11:37
--- NOTE | 2018-09-04 11:40 | CONS ---
Assessment/Plan Assessment/Plan Hospital Course (Demo Recall) All noted, no acute changes over night Blood culture on admission grew oxacillin sensitive staph aureus. Right toe wound culture grew Corynebacterium alphahemolytic strep and coag negative staph species Antimicrobials: Vancomycin Physical examination: Well-nourished well-developed middle-aged -[place] man who is alert in no distress. Patient is blind. Head atraumatic normoceph alic neck is supple. Chest rise symmetrical, breath sounds diminished bases. Heart: S1-S2. Abdomen soft, bowel sounds present. Extremities with right foot erythema edema of right great toe Assessment: 1. KOLBY bacteremia, likely secondary to #2 2. Right foot cellulitis with osteomyelitis of great toe, status post I&D at bedside 3. Diabetes with diabetic neuropathy 4. Legally blind 5. Leukopenia and anemia Plan: Patient remains stable, pending angiogram, anticipate dc on IV vancomycin for 6 weeks unless toe is amputated, vascular and podiatry rec-s Consultation Date/Type/Reason Admit Date/Time Aug 29, 2018 at 04:44 Initial Consult Date Type of Consult id Date/Time of Note DATE: 09/04/18 TIME: 11:38 Exam/Review of Systems Exam Vitals Vital Signs Date Temp Pulse Resp B/P (MAP) Pulse Ox O2 O2 Flow FiO2 Time Delivery Rate 09/04/18 98.2 86 18 144/82 98 Room Air 08:33 (102) Intake and Output 09/03/18 09/03/18 09/04/18 1414:59 22:59 06:59 IntakeIntake Total 1410 ml 490 ml OutputOutput Total 400 ml 475 ml 300 ml BalanceBalance 1010 ml 15 ml -300 ml Results Result Diagram: 09/04/18 0450 09/04/18 0450 Results 24hrs Laboratory Tests Test 09/03/18 12:48 09/03/18 17:46 09/03/18 20:48 09/04/18 04:50 Bedside Glucose 111 84 128 White Blood Count 4.2 L Red Blood Count 3.97 L Hemoglobin 10.6 L Hematocrit 34.8 L Mean Corpuscular 87.7 Volume Mean Corpuscular 26.7 L Hemoglobin Mean Corpuscular 30.5 L Hemoglobin Concent Red Cell Distribution 14.0 Width Platelet Count 209 Mean Platelet Volume 10.0 Immature Granulocytes 0.700 H % Neutrophils % 58.5 Lymphocytes % 28.7 Monocytes % 8.5 Eosinophils % 3.1 Basophils % 0.5 Nucleated Red Blood 0.0 Cells % Immature Granulocytes 0.030 # Neutrophils # 2.5 Lymphocytes # 1.2 Monocytes # 0.4 Eosinophils # 0.1 Basophils # 0.0 Nucleated Red Blood 0.0 Cells # Sodium Level 141 Potassium Level 3.7 Chloride Level 108 Carbon Dioxide Level 26 Anion Gap 7 Blood Urea Nitrogen 12 Creatinine 1.22 Est Glomerular > 60 Filtrat Rate mL/min Glucose Level 160 Calcium Level 8.9 Test 09/04/18 08:06 09/04/18 10:06 Bedside Glucose 95 76 Medications Medication Current Medications IV Flush (NS 3 ml) 3 ml PER PROTOCOL IV ; Start 08/29/18 at 06:00 Ondansetron HCl (Zofran Inj) 4 mg Q6H PRN IV NAUSEA/VOMITING; Start 08/29/18 at 06:00 Acetaminophen (Tylenol Tab) 650 mg Q6H PRN PO .PAIN 1-3 OR TEMP Last administered on 09/03/18 17:44; Admin Dose 650 MG; Start 08/29/18 at 06:00 Heparin Sodium (Porcine) (Heparin (5000 Units/1ml)) 5,000 unit Q12 SC Last administered on 09/04/18 08:24; Admin Dose 5,000 UNIT; Start 08/29/18 at 09:00 Albuterol/ Ipratropium (Duoneb) 3 ml Q2H RESP THERAPY PRN HHN SHORTNESS OF BREATH; Start 08/29/18 at 06:00 Diagnostic Test (Pha) (Accu-Chek) 1 ea 02 XX Last administered on 08/30/18at 02:42; Admin Dose 1 EA; Start 08/30/18 at 02:00 Allopurinol (Zyloprim) 300 mg DAILY PO Last administered on 09/03/18 08:40; Admin Dose 300 MG; Start 08/29/18 at 09:00 Amlodipine Besylate (Norvasc) 10 mg DAILY PO Last administered on 09/03/18 08:41; Admin Dose 10 MG; Start 08/29/18 at 09:00 Docusate Sodium (Colace) 100 mg Q12 PO Last administered on 09/03/18 20:40; Admin Dose 100 MG; Start 08/29/18 at 09:00 Levofloxacin (Levaquin) 500 mg DAILY@06 PO Last administered on 09/03/18 05:03; Admin Dose 500 MG; Start 08/29/18 at 06:00 Metoprolol Tartrate (Lopressor) 100 mg BID PO Last administered on 09/03/18 20:41; Admin Dose 100 MG; Start 08/29/18 at 09:00 Pantoprazole (Protonix Tab) 40 mg DAILY@06 PO Last administered on 09/03/18 05:03; Admin Dose 40 MG; Start 08/29/18 at 06:00 Prednisolone/ Sulfacetamide (Blephamide Oph) 2 drop QID BOTH EYES Last administered on 09/04/18 08:11; Admin Dose 2 DROP; Start 08/29/18 at 09:00 Zolpidem Tartrate (Ambien) 5 mg HS MAY REPEAT X 1 PRN PO INSOMNIA; Start 08/29/18 at 06:00 Vancomycin HCl (Vanco Iv Per Pharmacy) VANCOMYCIN PER PHARMACY PER PROTOCOL XX ; Start 08/29/18 at 13:30 Insulin Aspart (Novolog Insulin Pen) NOVOLOG *MILD* ALGORITHM WITH MEALS BEDTIME SC Last administered on 08/31/18 08:15; Admin Dose 1 UNIT; Start 08/29/18 at 18:00 Vancomycin HCl 1.5 gm/Sodium Chloride 250 ml @ 83.333 mls/ hr Q12H IVPB Last administered on 09/04/18 04:53; Admin Dose 83.333 MLS/HR; Start 08/30/18 at 05:00 Acetaminophen/ Hydrocodone Bitart (Makinen (5/325)) 1 tab Q4H PRN PO PAIN LEVEL 1-5 Last administered on 08/31/18 04:42; Admin Dose 1 TAB; Start 08/29/18 at 23:00 Acetaminophen/ Hydrocodone Bitart (Makinen (5/325)) 2 tab Q4H PRN PO MODERATE PAIN LEVEL 4-6; Start 08/29/18 at 23:00 Insulin Aspart (Novolog Insulin Pen) 15 unit WITH MEALS SC Last administered on 09/03/18 12:54; Admin Dose 15 UNIT; Start 08/30/18 at 12:00 Insulin Glargine (Lantus) 48 units QHS SC Last administered on 09/03/18 20:51; Admin Dose 48 UNITS; Start 08/30/18 at 21:00 Sodium Hypochlorite (Dakins Diluted ()) 1 applic DAILY TP Last administered on 09/04/18 08:15; Admin Dose 1 APPLIC; Start 08/30/18 at 16:00 IV Flush (NS 10 ml) 10 ml PRN PRN IV IV PROTOCOL; Start 08/30/18 at 19:00 Lisinopril (Zestril) 40 mg BID PO Last administered on 09/03/18 20:40; Admin Dose 40 MG; Start 08/31/18 at 21:00 Atorvastatin Calcium (Lipitor) 40 mg HS PO Last administered on 09/03/18 20:40; Admin Dose 40 MG; Start 08/31/18 at 21:00 Pentoxifylline (Trental) 400 mg TID PO Last administered on 09/03/18 20:40; Admin Dose 400 MG; Start 08/31/18 at 13:00 Cilostazol (Pletal) 100 mg BID PO Last administered on 09/03/18 20:41; Admin Dose 100 MG; Start 08/31/18 at 21:00 Dextrose/Sodium Chloride 1,000 ml @ 60 mls/hr [id number] IV Last administered on 09/04/18 10:24; Admin Dose 60 MLS/HR; Start 09/04/18 at 10:30 JUVENAL SANCHEZ NP September 04, 2018 11:40
--- NOTE | 2018-09-04 12:44 | SIPON ---
Date/Time of Note Date/Time of Note DATE: 09/04/18 TIME: 12:43 Operative Report Preoperative Diagnosis R 1st toe osteo Postoperative Diagnosis same Operation/Procedure Performed aortogram, RLE runoff - no intervention (patent PT and peroneal with reconst DP, JOSESITO occluded) Surgeon see signature line assistant professor of nursing none Anesthesia: moderate sedation Estimated blood loss: none Transfusion Required none Specimen none Grafts/Implants none Complications none DO LOMBARDI MD September 04, 2018 12:44
[2018-09-04] MEDS ORDERED: GUAIFENESIN/DM 5ML CUP PO PRN (13:00)
--- NOTE | 2018-09-04 14:17 | OPR ---
DATE OF OPERATION: 09/04/2018 PREOPERATIVE DIAGNOSIS: Right first toe osteomyelitis with ulceration. POSTOPERATIVE DIAGNOSIS: Right first toe osteomyelitis with ulceration. PROCEDURE PERFORMED: Abdominal aortogram with right lower extremity runoff. SURGEON: Do Chavez MD ANESTHESIA: Local with sedation. ESTIMATED BLOOD LOSS: Minimal. COMPLICATIONS: There were no intraprocedural complications. INDICATIONS FOR PROCEDURE: This is a 58-year-old gentleman with diabetes, hypertension, peripheral a rterial disease. He has osteomyelitis of the right first toe. It is fairly extensive. He has got u lcers on the plantar and dorsal portions of the toe. It was sort of draining. I do not feel pedal p ulses. He had an arterial duplex that showed monophasic dorsalis pedis flow, and there was triphasic posterior tibial flow. Brought him in today for an angiogram and possible intervention, given the e xtensive necrosis in the toe and the possibility of need for amputation. DESCRIPTION OF PROCEDURE: The patient was brought to the catheterization lab and placed on the table in a supine position. Left groin prepped and draped in the usual sterile fashion. I began by infil trating over the left common femoral artery using about 10 mL of 1% Xylocaine. Ultrasound showed the artery to be good caliber. It was fully compressible with no filling defects. I entered the left c ommon femoral artery under ultrasound guidance with a micropuncture needle. An 0.018 wire was insert ed through the needle into the artery and a micropuncture sheath was advanced over the wire into the artery. I advanced an 0.035 Bentson wire up into the abdominal aorta, exchanged the micropuncture sh eath for a 5-Stateless sheath over a wire. I then advanced an Omni Flush catheter over the wire and int o the infrarenal aorta and did an intrarenal aortogram. I then advanced the catheter up and over the bifurcation using the Bentson wire. I was able to advance the Bentson wire down into the SFA and I advanced the catheter down into the proximal SFA, then did runoff down the right lower extremity. At this point, I removed all the catheter sheaths and wires. We held pressure on the left groin unti l there was good hemostasis. He tolerated the procedure well and was transferred to the [facility] in stable condition. FINDINGS OF ANGIOGRAPHY: The infrarenal aorta, both common external and internal iliac arteries were widely patent. The right common, superficial and profunda femoral arteries were widely patent with no disease. Popliteal artery on the right is patent above and below the knee. Below the knee, the a nterior tibial artery occludes about 5 cm past its origin; however, the peroneal and posterior tibial arteries are widely patent all the way down. The posterior tibial artery crosses the ankle into the foot, and there is a patent pedal arch and there is reconstitution, basically retrograde flow direct ly into the dorsalis pedis and the peroneal terminates at the ankle. I did not feel that there was a ny intervention warranted. He has excellent flow into the foot and a patent pedal arch. Dictated By: DO BLAKE/JOSE Conf#: [id number] DID#: [id number] CC: CINTIA JENSEN NP; CRYS CROOKM; DAPHNE MONTEZ MD; Rajendra Unknown;*EndCC*
--- NOTE | 2018-09-04 18:55 | RADRPT ---
Echocardiogram Report Patient Name: VINEET BERRIOSPatient ID: [id number] : 1960 (58y 1m)Study Date: 09/03/2018 11:35:27 AM Gender: MAccession #: [id number] Tech: Kati Daniel DONNA Location: [id number] Ref.Physician: JUVENAL SANCHEZ Height(Cm): BSA: Weight(Kg): Quality: AdequateAccount #: Procedures: Echocardiographic Report: Transthoracic echocardiogram with complete 2D, M-Mode, and doppler examination. Indications: r/o vegetation. Measurements: 2D/M Mode Doppler Measurement Value Normal Range Measurement Value Normal Range LVIDd 2D 6.1 [ 4.2 - 5.8 ] cm AV Peak Jasmeet 1.5 [ 100.0 - 170.0 ] cm/sec LVIDs 2D 4.7 [ 2.5 - 4.0 ] cm AV Peak PG 9.0 [ 2.0 - 9.0 ] mmHg LVPWd 2D 1.2 [ 0.6 - 1.0 ] cm LVOT Peak Jasmeet 0.8 [ 70.0 - 110.0 ] cm/sec IVSd 2D 1.2 [ 0.6 - 1.0 ] cm LVOT Peak PG 2.0 [ 2.0 - 6.0 ] mmHg AoR Diam 2D 3.9 [ 2.6 - 3.4 ] cm MV E Peak Jasmeet 0.6 [ 60.0 - 130.0 ] cm/sec EDV 2D 186.0 [ 62.0 - 150.0 ] ml MV A Peak Jasmeet 0.8 [ 100.0 - 120.0 ] cm/sec ESV 2D 99.8 [ 21.0 - 61.0 ] ml MV E/A 0.8 [ 0.8 - 1.5 ] ratio EF 2D 46.3 [ 52.0 - 72.0 ] percent MV Decel Time 201 [ 104 - 258 ] msec LA Dimen 2D 4.3 [ 3.0 - 4.0 ] cm Lat E` Jasmeet 0.1 [ 10.0 - 15.0 ] cm/sec Lateral E/E` 10.5 [ 1.0 - 2.0 ] ratio MV E/A 0.8 [ 0.8 - 1.5 ] ratio TR Peak Jasmeet 1.7 [ 100.0 - 280.0 ] cm/sec TR Peak PG 11.0 mmHg RVSP 21.0 [ 10.0 - 36.0 ] mmHg RA Pressure 10.0 mmHg Findings: Left Ventricle: Normal left ventricular systolic function. Mild concentric left ventricular hypertrophy. Mild enlargement of left ventricle cavity. Moderate global left ventricular systolic dysfunction. Ejection fraction is visually estimated at 35-40 %. Tissue Doppler/Mitral Doppler indices are consistent with impaired relaxation (Stage I diastolic dysfunction). Right Ventricle: Normal right ventricular size. Normal right ventricular systolic function. Left Atrium: Upper limit of normal left atrial size. Right Atrium: The right atrium is normal in size. Mitral Valve: Mitral valve leaflets appear mildly thickened. Mild mitral annular calcification. Trace mitral regurgitation. Aortic Valve: Normal appearance of the aortic valve. No significant aortic stenosis or insufficiency. Tricuspid Valve: Normal appearance and function of the tricuspid valve with trace physiologic regurgitation. Normal right ventricular systolic pressure. Pulmonic Valve: Normal pulmonic valve appearance. Pericardium: Normal pericardium with no significant pericardial effusion. Aorta: Normal aortic root. IVC: Normal size and normal respiratory collapse consistent with normal right atrial pressure. Conclusions: Normal left ventricular systolic function. Mild concentric left ventricular hypertrophy. Mild enlargement of left ventricle cavity. Moderate global left ventricular systolic dysfunction. Ejection fraction is visually estimated at 35-40 %. Tissue Doppler/Mitral Doppler indices are consistent with impaired relaxation (Stage I diastolic dysfunction). ). Mitral valve leaflets appear mildly thickened. Mild mitral annular calcification. Trace mitral regurgitation. Normal appearance and function of the tricuspid valve with trace physiologic regurgitation. Normal right ventricular systolic pressure. Electronically Signed By: Tone Davis 2018-09-04 18:55:03 PDT
[2018-09-04] MEDS: ATORVASTATIN 40 MG TAB PO SCH (21:00)
[2018-09-04] MEDS: INSULIN GLARGINE [LANTus] (100 UNITS/ML) SYG SC SCH (21:34)
[2018-09-05 02:00] VITALS: BP 131/72; PULSE 78; RESP 18
[2018-09-05] MEDS: ACCU-CHEK XX SCH (02:00)
[2018-09-05] MEDS: PANTOPRAZOLE (EC) 40 MG TAB PO SCH (05:01)
[2018-09-05] MEDS: LEVOFLOXACIN 500 MG TAB PO SCH (05:01)
[2018-09-05] MEDS: VANCOMYCIN HCL 1.5 GM in SOD CHLORIDE 0.9% 250 ML IVPB SCH (05:01)
[2018-09-05 07:23] VITALS: BP 143/92; PULSE 79; RESP 18
[2018-09-05] MEDS: INSULIN ASPART [NOVOLOG] 3 ML PEN SC SCH ×7 (08:00→20:45)
[2018-09-05] MEDS: ALLOPURINOL 300 MG TAB PO SCH (08:23)
[2018-09-05] MEDS: LISINOPRIL 20 MG TAB PO SCH ×2 (08:23→20:49)
[2018-09-05] MEDS: PENTOXIFYLLINE (SR) 400 MG TAB PO SCH ×3 (08:23→20:46)
[2018-09-05] MEDS: CILOSTAZOL 100 MG TAB PO SCH ×2 (08:24→20:46)
[2018-09-05] MEDS: DOCUSATE SODIUM 100 MG CAP PO SCH ×2 (08:24→20:46)
[2018-09-05] MEDS: AMLODIPINE 10 MG TAB PO SCH (08:24)
[2018-09-05] MEDS: METOPROLOL 100 MG TAB PO SCH ×2 (08:24→20:49)
[2018-09-05] MEDS: HEPARIN 5,000 UNIT/1 ML VIAL SC SCH ×2 (08:25→20:51)
[2018-09-05] MEDS: DAKINS 0.0125%(1/40) 473 ML SOLUTION TP SCH (08:34)
[2018-09-05] MEDS: PREDNISOLONE/SULFACETAMIDE 5 ML OPH BOTH EYES SCH ×4 (08:35→20:46)
--- NOTE | 2018-09-05 12:45 | PDOCDIS ---
Discharge Instructions CONDITION [id number] Patient Condition: [id number] Stable HOME CARE INSTRUCTIONS: [id number] Your diet recommendation is: [id number] Carbohydrate-controlled, low-cholesterol diet. FOLLOW UP/APPOINTMENTS Follow-up Plan Follow-up with your primary care physician in 1 week. Follow-up with [facility] amputation prevention clinic in 1week with CINTIA Dumont NP September 05, 2018 12:45
[2018-09-05] MEDS ORDERED: PENT400T9 PO (12:57)
[2018-09-05] MEDS ORDERED: CILO100T PO (12:57)
[2018-09-05] MEDS ORDERED: Vancomycin Iv Per Pharmacy XX (12:57)
[2018-09-05] MEDS ORDERED: NOVO3I SC (12:57)
--- NOTE | 2018-09-05 13:06 | DS ---
Date/Time of Note Date/Time of Note DATE: 09/05/18 TIME: 13:03 Discharge Summary Admission/Discharge Info Admit Date/Time Aug 29, 2018 at 04:44 Discharge Date/Time Discharge Diagnosis Right foot cellulitis with right first toe osteomyelitis/purulent DM ulcer. -Patient opted for salvage trial, on long-term IV antibiotics. Staph bacteremia secondary to right foot cellulitis Peripheral arterial disease Type 2 diabetes, poorly controlled Essential hypertension Chronic normocytic anemia Legally blind Patient Condition: Stable Consults ,podiatry ,vacsular Procedures 09/02/2018. MRI left foot. IMPRESSION: 1. Extensive osteomyelitis within the first digit involving the first distal phalanx, proximal phalanx, sesamoids, and metatarsal extending to the tarsometatarsal articulation with bony destructive changes. 2. Skin ulcer medial and plantar to the first toe at the level of the interphalangeal joint with a loculated fluid collection adjacent to the first proximal phalanx and metatarsal from an adjacent abscess measuring up to 8.5 in length proximal to distal. 3. Osteoarthrosis within the partially visualized first through third tarsometatarsal joints more prominent involving the second tarsometatarsal joint with high-grade chondral loss and mild marrow edema. 09/04/2018 Operation/Procedure Performed aortogram, RLE runoff - no intervention (patent PT and peroneal with reconst DP, JOSESITO occluded) Hospital Course 58-year-old male with diabetes, legally blind, here with worsening right great toe DM ulcer draining purulent.... Patient was started on broad spectrum antimicrobials. Comorbidities managed per outpatient regimen. He was being followed by podiatry, vascular and infectious disease team. Patient grew polymicrobial seen on culture. Patient also had staph bacteremia and repeat cultures were negative. MRI consistent with osteomyelitis of right first toe. Patient also underwent right lower extremity angiogram on 09/04/2018 with no intervention as there is patent blood flow noted. Patient was continued on Trental and Pletal for severe peripheral vascular disease. Although amputation was recommended, patient opted for some match trial, acid he was recommended to continue IV antibiotic for a total of 6 weeks with wound care with Betadine and follow-up with heating engineer as outpatient. At this time, patient is hemodynamically stable for outpatient follow-up. Home health arrange for IV antibiotics and wound care. Approximately 60 m spent in coordinating the discharge on this patient. Patient is in collaboration with Dr. Bauer. Home Meds Active Scripts Pentoxifylline* (Pentoxifylline*) 400 Mg Tablet.sa, 400 MG PO TID, #90 TAB Prov:JENSENCINTIACINTIA V. ELECTRICAL PROSPECTING OBSERVER 09/05/18 Cilostazol* (Cilostazol*) 100 Mg Tablet, 100 MG PO BID, #60 TAB Prov:JENSEN,CINTIA V. ELECTRICAL PROSPECTING OBSERVER 09/05/18 [Vancomycin Iv Per Pharmacy] 1 EA EACH No Conflict Check, 0 EA XX .PER PROTOCOL for 6 weeks Prov:JENSEN,CINTIA V. ELECTRICAL PROSPECTING OBSERVER 09/05/18 Insulin Aspart* (Novolog Insulin Pen*) 100 Unit/Ml Soln, 10 UNIT SC WITH MEALS for 30 Days, #1 SYR Prov:JENSEN,CINTIA V. ELECTRICAL PROSPECTING OBSERVER 09/05/18 Naproxen* (Naprosyn*) 500 Mg Tablet, 500 MG PO BID PRN for PAIN AND/OR INFLAMMATION, #30 TAB take with food Prov:GIULIA MCELROY PA-C 08/06/16 Prednisolone-Sulfacetamide* (Blephamide*) 5 Ml Drops, 2 DROP BOTH EYES QID for 30 Days, BOTTLE Prov:MALLIKA MILLER M.D. 05/13/16 Lisinopril* (Lisinopril*) 20 Mg Tablet, 20 MG PO BID for 30 Days, TAB Prov:MALLIKA MILLER M.D. 05/13/16 Metoprolol Tartrate* (Lopressor*) 100 Mg Tablet, 100 MG PO BID, #60 TAB Prov:MALLIKA MILLER M.D. 05/13/16 Pantoprazole* (Pantoprazole*) 40 Mg Tablet., 40 MG PO DAILY@06 for 30 Days Prov:MALLIKA MILLER M.D. 05/13/16 Zolpidem Tartrate (Ambien Yohannes) 5 Mg Tablet, 5 MG PO HS MAY REPEAT X 1 PRN for INSOMNIA, #50 TAB Prov:MALLIKA MILLER MDino 05/13/16 Insulin Glargine* (Lantus*) 100 Unit/Ml Soln, 40 UNIT SC QHS for 30 Days Prov:MALLIKA MILLER M.D. 05/13/16 Hydrocodone Bit-Acetaminophen (Hydrocodone Bit-APAP) 5-325MG Tablet, 1 TAB PO Q6H PRN for PAIN LEVEL 4-6 for 30 Days, #100 TAB Prov:MALLIKA MILLER M.D. 05/13/16 Docusate Sodium* (Colace*) 100 Mg Capsule, 100 MG PO Q12H for 30 Days, CAP Prov:MALLIKA MILLER M.D. 05/13/16 Allopurinol* (Allopurinol*) 300 Mg Tablet, 300 MG PO DAILY for 30 Days, TAB Prov:MALLIKA MILLER M.D. 05/13/16 Reported Medications Amlodipine Besylate* (Amlodipine Besylate*) 10 Mg Tablet, 10 MG PO DAILY, #30 TAB 02/23/16 Discontinued Reported Medications Glyburide* (Glyburide*) 5 Mg Tablet, 5 MG PO BID, #60 TAB 02/23/16 Discontinued Scripts [Vancomycin Iv Per Pharmacy] 1 EA EACH No Conflict Check, 0 EA XX .PER PROTOCOL for 30 Days Prov:MALLIKA MILLER M.D. 05/13/16 Levofloxacin* (Levaquin*) 500 Mg Tablet, 500 MG PO DAILY@06 for 30 Days, TAB Prov:MALLIKA MILLER M.D. 05/13/16 Fluconazole* (Fluconazole*) 100 Mg Tablet, 100 MG PO DAILY for 30 Days, TAB Prov:MALLIKA MILLER M.D. 05/13/16 Acyclovir* (Acyclovir*) 400 Mg Tablet, 400 MG PO BID for 30 Days, TAB Prov:MALLIKA MILLER M.D. 05/13/16 Follow-up Plan Follow-up with your primary care physician in 1 week. Follow-up with [facility] amputation prevention clinic in 1week with Primary Care Provider Care Physician No Primary Pending Labs Laboratory Tests Test 09/04/18 13:43 09/04/18 17:48 09/04/18 20:58 09/04/18 21:17 Bedside 113 128 78 84 Glucose mg/dL (70-220) mg/dL (70-220) mg/dL (70-220) mg/dL (70-220) Test 09/05/18 02:18 09/05/18 04:51 09/05/18 08:23 09/05/18 12:45 Bedside 144 110 103 Glucose mg/dL (70-220) mg/dL (70-220) mg/dL (70-220) Sodium Level 140 mmol/L (135-14 4) Potassium 3.7 Level mmol/L (3.5-5. 1) Chloride Level 106 mmol/L (97-110 ) Carbon Dioxide 27 Level mmol/L (21-31) Anion Gap 7 (5-13) Blood Urea 14 Nitrogen mg/dl (7-20) Creatinine 1.02 mg/dl (0.61-1. 24) Est Glomerular > 60 Filtrat mL/min (>60) Rate mL/min Glucose Level 140 mg/dl (70-220) Calcium Level 8.9 mg/dl (8.4-10. 2) CINTIA JENSEN NP September 05, 2018 13:06
--- NOTE | 2018-09-05 13:27 | CONS ---
Assessment/Plan Assessment/Plan Hospital Course (Demo Recall) All noted, no acute changes over night Blood culture on admission grew oxacillin sensitive staph aureus. Right toe wound culture grew Corynebacterium alphahemolytic strep and coag negative staph species Antimicrobials: Vancomycin Physical examination: Well-nourished well-developed middle-aged -[place] man who is alert in no distress. Patient is blind. Head atraumatic normoceph alic neck is supple. Chest rise symmetrical, breath sounds diminished bases. Heart: S1-S2. Abdomen soft, bowel sounds present. Extremities with right foot erythema edema of right great toe Assessment: 1. KOLBY bacteremia, likely secondary to #2 2. Right foot cellulitis with osteomyelitis of great toe, status post I&D at bedside 3. Diabetes with diabetic neuropathy 4. Legally blind 5. Leukopenia and anemia Plan: Patient remains stable, s/p angiogram==> no intervention needed, pending dc on IV vancomycin to complete 6 weeks, f/u vascular and podiatry rec-s Consultation Date/Type/Reason Admit Date/Time Aug 29, 2018 at 04:44 Initial Consult Date Type of Consult id Date/Time of Note DATE: 09/05/18 TIME: 13:26 Exam/Review of Systems Exam Vitals Vital Signs Date Temp Pulse Resp B/P (MAP) Pulse Ox O2 O2 Flow FiO2 Time Delivery Rate 09/05/18 97.9 79 18 143/92 99 Room Air 07:23 (109) Intake and Output 09/04/18 09/04/18 09/05/18 1515:00 23:00 07:00 IntakeIntake Total 730 ml 840 ml OutputOutput Total 975 ml 700 ml BalanceBalance -245 ml 140 ml Results Result Diagram: 09/04/18 0450 09/05/18 0451 Results 24hrs Laboratory Tests Test 09/04/18 13:43 09/04/18 17:48 09/04/18 20:58 09/04/18 21:17 Bedside Glucose 113 128 78 84 Test 09/05/18 02:18 09/05/18 04:51 09/05/18 08:23 09/05/18 12:45 Bedside Glucose 144 110 103 Sodium Level 140 Potassium Level 3.7 Chloride Level 106 Carbon Dioxide Level 27 Anion Gap 7 Blood Urea Nitrogen 14 Creatinine 1.02 Est Glomerular Filtrat > 60 Rate mL/min Glucose Level 140 Calcium Level 8.9 Medications Medication Current Medications IV Flush (NS 3 ml) 3 ml PER PROTOCOL IV ; Start 08/29/18 at 06:00 Ondansetron HCl (Zofran Inj) 4 mg Q6H PRN IV NAUSEA/VOMITING; Start 08/29/18 at 06:00 Acetaminophen (Tylenol Tab) 650 mg Q6H PRN PO .PAIN 1-3 OR TEMP Last adminis tered on 09/03/18 17:44; Admin Dose 650 MG; Start 08/29/18 at 06:00 Heparin Sodium (Porcine) (Heparin (5000 Units/1ml)) 5,000 unit Q12 SC Last administered on 09/05/18 08:25; Admin Dose 5,000 UNIT; Start 08/29/18 at 09:00 Albuterol/ Ipratropium (Duoneb) 3 ml Q2H RESP THERAPY PRN HHN SHORTNESS OF BREATH; Start 08/29/18 at 06:00 Diagnostic Test (Pha) (Accu-Chek) 1 ea 02 XX Last administered on 08/30/18 02:42; Admin Dose 1 EA; Start 08/30/18 at 02:00 Allopurinol (Zyloprim) 300 mg DAILY PO Last administered on 09/05/18 08:23; Admin Dose 300 MG; Start 08/29/18 at 09:00 Amlodipine Besylate (Norvasc) 10 mg DAILY PO Last administered on 09/05/18 08:24; Admin Dose 10 MG; Start 08/29/18 at 09:00 Docusate Sodium (Colace) 100 mg Q12 PO Last administered on 09/05/18 08:24; Admin Dose 100 MG; Start 08/29/18 at 09:00 Metoprolol Tartrate (Lopressor) 100 mg BID PO Last administered on 09/05/18 08:24; Admin Dose 100 MG; Start 08/29/18 at 09:00 Pantoprazole (Protonix Tab) 40 mg DAILY@06 PO Last administered on 09/05/18 05:01; Admin Dose 40 MG; Start 08/29/18 at 06:00 Prednisolone/ Sulfacetamide (Blephamide Oph) 2 drop QID BOTH EYES Last administered on 09/05/18 08:35; Admin Dose 2 DROP; Start 08/29/18 at 09:00 Zolpidem Tartrate (Ambien) 5 mg HS MAY REPEAT X 1 PRN PO INSOMNIA; Start at 06:00 Vancomycin HCl (Vanco Iv Per Pharmacy) VANCOMYCIN PER PHARMACY PER PROTOCOL XX ; Start 08/29/18 at 13:30 Insulin Aspart (Novolog Insulin Pen) NOVOLOG *MILD* ALGORITHM WITH MEALS BEDTIM E SC Last administered on 08/31/18 08:15; Admin Dose 1 UNIT; Start 08/29/18 at 18:00 Vancomycin HCl 1.5 gm/Sodium Chloride 250 ml @ 83.333 mls/ hr Q12H IVPB Last administered on 09/05/18 05:01; Admin Dose 83.333 MLS/HR; Start 08/30/18 at 05:00 Acetaminophen/ Hydrocodone Bitart ([place] (5/325)) 1 tab Q4H PRN PO PAIN LEVEL 1-5 Last administered on 08/31/18 04:42; Admin Dose 1 TAB; Start 08/29/18 at 23:00 Acetaminophen/ Hydrocodone Bitart ([place] (5/325)) 2 tab Q4H PRN PO MODERATE PAIN LEVEL 4-6 Last administered on 09/04/18 13:45; Admin Dose 2 TAB; Start 08/29/18 at 23:00 Insulin Aspart (Novolog Insulin Pen) 15 unit WITH MEALS SC Last administered on 09/05/18 12:47; Admin Dose 15 UNIT; Start 08/30/18 at 12:00 Insulin Glargine (Lantus) 48 units QHS SC Last administered on 09/04/18at 21:34; Admin Dose 48 UNITS; Start 08/30/18 at 21:00 Sodium Hypochlorite (Dakins Diluted (40)) 1 applic DAILY TP Last administered on 09/05/18 08:34; Admin Dose 1 APPLIC; Start 08/30/18 at 16:00 IV Flush (NS 10 ml) 10 ml PRN PRN IV IV PROTOCOL; Start 08/30/18 at 19:00 Lisinopril (Zestril) 40 mg BID PO Last administered on 09/05/18 08:23; Admin Dose 40 MG; Start 08/31/18 at 21:00 Atorvastatin Calcium (Lipitor) 40 mg HS PO Last administered on 09/04/18at 21:00; Admin Dose 40 MG; Start 08/31/18 at 21:00 Pentoxifylline (Trental) 400 mg TID PO Last administered on 09/05/18at 12:48; Admin Dose 400 MG; Start 08/31/18 at 13:00 Cilostazol (Pletal) 100 mg BID PO Last administered on 09/05/18at 08:24; Admin Dose 100 MG; Start 08/31/18 at 21:00 Guaifenesin/ Dextromethorphan (Robitussin Dm Liquid Cup) 10 ml Q4H PRN PO COUGH; Start 09/04/18 at 13:00 Miscellaneous Information (*Rx Drug Level Order Reminder*) VERONICAO TR 09/05 AT 1600 1600 ONCE XX ; Start 09/05/18 at 16:00; Stop 09/05/18 at 16:01 JUVENAL SANCHEZ NP September 05, 2018 13:27
[2018-09-05 14:53] VITALS: BP 132/88; PULSE 89; RESP 20
[2018-09-05] MEDS: HYDROCODONE/APAP (5/325) TAB PO PRN (15:33)
[2018-09-05] MEDS ORDERED: VANCOMYCIN HCL 1.25 GM in SOD CHLORIDE 0.9% 250 ML IVPB SCH (18:00)
[2018-09-05 20:00] VITALS: BP 125/87; PULSE 99; RESP 18
[2018-09-05] MEDS: ATORVASTATIN 40 MG TAB PO SCH (20:46)
[2018-09-05] MEDS: INSULIN GLARGINE [LANTus] (100 UNITS/ML) SYG SC SCH (20:51)
== END 2018-09-05 22:55 | disposition home health service (06) | DRG 623 ==
LOC: E/R 02:44 → 2NE 04:44
PROVIDERS: ADMIT Internal Medicine; ATTEND Internal Medicine
PROC: 0JBQ0ZZ Excision of Right Foot Subcutaneous Tissue and Fascia, Open Approach (ICD-10-PCS; principal; 2018-08-29)
PROC: 02H633Z Insertion of Infusion Device into Right Atrium, Percutaneous Approach (ICD-10-PCS; 2018-08-30)
PROC: B244ZZZ Ultrasonography of Right Heart (ICD-10-PCS; 2018-08-30)
PROC: B41DYZZ Fluoroscopy of Aorta and Bilateral Lower Extremity Arteries using Other Contrast (ICD-10-PCS; 2018-09-04)
PROC: B410YZZ Fluoroscopy of Abdominal Aorta using Other Contrast (ICD-10-PCS; 2018-09-04)
DX: E11.621 Type 2 diabetes mellitus with foot ulcer (principal); M86.671 Other chronic osteomyelitis, right ankle and foot; R78.81 Bacteremia; L03.115 Cellulitis of right lower limb; C94.81 Other specified leukemias, in remission; E11.51 Type 2 diabetes mellitus with diabetic peripheral angiopathy without gangrene; E11.40 Type 2 diabetes mellitus with diabetic neuropathy, unspecified; E11.65 Type 2 diabetes mellitus with hyperglycemia; B95.0 Streptococcus, group A, as the cause of diseases classified elsewhere; E11.69 Type 2 diabetes mellitus with other specified complication; I10 Essential (primary) hypertension; H54.8 Legal blindness, as defined in USA; D64.9 Anemia, unspecified; L03.031 Cellulitis of right toe; H16.8 Other keratitis; E78.5 Hyperlipidemia, unspecified; B95.61 Methicillin susceptible Staphylococcus aureus infection as the cause of diseases classified elsewhere; Z79.4 Long term (current) use of insulin
CPT/HCPCS: 36246; 36569; 71045; 73630; 73718; 75625; 75710; 76937; 80048; 80053; 80061; 80202; 81001; 81003; 82962; 83036; 83690; 83735; 84100; 84145; 84560; 85025; 85651; 86140; 86803; 87070; 87340; 93306; 93926; C1894; J1644; J1815; J2250; J2270; J2405; J2543; J3010; J3370; J7040; J7042; J7050; Q9967

== ENCOUNTER 2018-09-19 19:40 | Emergency (ER) | payer BC ==
[~2018-09-19] VITALS: Wt 122.9 kg
[~2018-09-19 19:40] MED LIST changes: -ACYC400T2 PO; +CILO100T PO; -FLUC100T39 PO; -GLYB5TAB3 PO; -LEVO500T48 PO; +PENT400T9 PO
[2018-09-19 21:18] VITALS: BP 122/81; PULSE 78; RESP 18
[2018-09-19] MEDS ORDERED: ALTEPLASE (CATHFLO) 2 MG INJ CATHETER ONE (21:30)
--- NOTE | 2018-09-19 23:09 | ERD ---
ER Documentation Chief Complaint Chief Complaint PICC LINE OCCLUSION HPI Patient is a 58-year-old male with hypertension, diabetes, and foot ulcer who presents for a clogged PICC line. The patient has a PICC line in the left arm and has not been able to draw blood for the past few days. The patient is getting IV antibiotics for a toe infection and still has 4 weeks of antibiotic left. Upon review of old medical records this is the patient's fifth visit to the ER since 2016. ROS All systems reviewed and are negative except as per history of present illness. Medications Home Meds Active Scripts Pentoxifylline* (Pentoxifylline*) 400 Mg Tablet.sa, 400 MG PO TID, #90 TAB Prov:JENSENCINTIA V. ELECTRIC STOP INSTALLER 09/05/18 Cilostazol* (Cilostazol*) 100 Mg Tablet, 100 MG PO BID, #60 TAB Prov:JENSENCINTIA V. ELECTRIC STOP INSTALLER 09/05/18 [Vancomycin Iv Per Pharmacy] 1 EA EACH No Conflict Check, 0 EA XX .PER PROTOCOL for 6 weeks Prov:AMRITA JENSENA Siva. ELECTRIC STOP INSTALLER 09/05/18 Insulin Aspart* (Novolog Insulin Pen*) 100 Unit/Ml Soln, 10 UNIT SC WITH MEALS for 30 Days, #1 SYR Prov:JENSENCINTIA V. ELECTRIC STOP INSTALLER 09/05/18 Naproxen* (Naprosyn*) 500 Mg Tablet, 500 MG PO BID PRN for PAIN AND/OR INFLAMMATION, #30 TAB take with food Prov:GIULIA MCELROY PA-C 08/06/16 Prednisolone-Sulfacetamide* (Blephamide*) 5 Ml Drops, 2 DROP BOTH EYES QID for 30 Days, BOTTLE Prov:MALLIKA MILLER M.D. 05/13/16 Lisinopril* (Lisinopril*) 20 Mg Tablet, 20 MG PO BID for 30 Days, TAB Prov:MALLIKA MILLER M.D. 05/13/16 Metoprolol Tartrate* (Lopressor*) 100 Mg Tablet, 100 MG PO BID, #60 TAB Prov:MALLIKA MILLER M.D. 05/13/16 Pantoprazole* (Pantoprazole*) 40 Mg Tablet.dr, 40 MG PO DAILY@06 for 30 Days Prov:MALLIKA MILLER M.D. 05/13/16 Zolpidem Tartrate (Ambien Yohannes) 5 Mg Tablet, 5 MG PO HS MAY REPEAT X 1 PRN for INSOMNIA, #50 TAB Prov:MALLIKA MILLER M.D. 05/13/16 Insulin Glargine* (Lantus*) 100 Unit/Ml Soln, 40 UNIT SC QHS for 30 Days Prov:MALLIKA MILLER M.D. 05/13/16 Hydrocodone Bit-Acetaminophen (Hydrocodone Bit-APAP) 5-325MG Tablet, 1 TAB PO Q6H PRN for PAIN LEVEL 4-6 for 30 Days, #100 TAB Prov:MALLIKA MILLER M.D. 05/13/16 Docusate Sodium* (Colace*) 100 Mg Capsule, 100 MG PO Q12H for 30 Days, CAP Prov:MALLIKA MILLER M.D. 05/13/16 Allopurinol* (Allopurinol*) 300 Mg Tablet, 300 MG PO DAILY for 30 Days, TAB Prov:MALLIKA MILLER M.D. 05/13/16 Reported Medications Amlodipine Besylate* (Amlodipine Besylate*) 10 Mg Tablet, 10 MG PO DAILY, #30 TAB 02/23/16 Allergies Allergies: Coded Allergies: No Known Allergy (Unverified , 02/23/16) PMhx/Soc History of Surgery: Yes Anesthesia Reaction: No Hx 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 Disorder: No Hx Respiratory Disorders: No Hx Cardiac Disorders: Yes Hx Psychiatric Problems: No Hx Miscellaneous Medical Probl: No Hx Alcohol Use: No Hx Substance Use: No Hx Tobacco Use: No Smoking Status: Never smoker FmHx Family History: diabetes Physical Exam Vitals Vital Signs Date Temp Pulse Resp B/P (MAP) Pulse Ox O2 O2 Flow FiO2 Time Delivery Rate 09/19/18 98.3 78 18 122/81 99 Room Air 21:18 (95) 09/19/18 98.3 91 18 117/83 99 20:17 (94) Physical Exam Const: No acute distress Head: Atraumatic Eyes: Patient wearing glasses and is blind at baseline ENT: Normal External Ears, Nose and Mouth. Neck: Full range of motion. No meningismus. Resp: Clear to auscultation bilaterally Cardio: Regular rate and rhythm, no murmurs Abd: Soft, non tender, non distended. Normal bowel sounds Skin: No petechiae or rashes Back: No midline or flank tenderness Ext: No cyanosis, or edema Neur: Awake and alert Psych: Normal Mood and Affect Results 24 hrs Current Medications Medications Dose Sig/Kelley Start Time Status Last (Trade) Ordered Route PRN Stop Time Admin Dose Reason Admin Alteplase, 2 mg ONCE ONCE 09/19/18 DC Recombinant CATHETER 21:30 (Cathflo 09/19/18 21:30 (Activase)) Procedures/MDM Patient is a 58-year-old male presents with an occluded PICC line. Saro the nurse was able to use a flush with a push/pull method and was able to unclog the PICC line without any medication. The patient's PICC line is now flushing and drawing blood. The patient will be discharged. The patient can return for any worsening symptoms. Departure Diagnosis: Primary Impression: Occluded PICC line Encounter type: initial encounter Qualified Codes: T82.898A - Other specified complication of vascular prosthetic devices, implants and grafts, initial encounter Condition: Fair Patient Instructions: Picc Line Care Referrals: Your doctor Additional Instructions: Call your primary care doctor TOMORROW for an appointment during the next 1 WEEK.Tell the restrike hammer operator that you were referred from this facility.See the doctor sooner or return here if your condition worsens before your appointment time. RACHID ENRIQUEZ MD September 19, 2018 23:08
== END 2018-09-19 22:16 | disposition home or self-care (01) ==
LOC: E/R 19:40
DX: T82.898A Other specified complication of vascular prosthetic devices, implants and grafts, initial encounter (principal); I10 Essential (primary) hypertension; E11.9 Type 2 diabetes mellitus without complications; Y71.2 Prosthetic and other implants, materials and accessory cardiovascular devices associated with adverse incidents; Z79.4 Long term (current) use of insulin
CPT/HCPCS: 99282; J2997